=== PATIENT | female | born 1940 | race Caucasian/White ===

== ENCOUNTER → 2017-01-10 | Outpatient (CLI) | payer MEDICARE, OTHER ==
[2016-06-19 08:58] VITALS: BP 108/62
[~2017-01-10] MED LIST: ACET500T68 PO; ALLO100T PO; ALPR0.25 PO; AMIT50TA PO; ASCO-78 PO; ASCO500T2 PO; ASPI81TA44 PO; BIOT1CAP3 PO; CALC250T PO; COLC25PO MC; CRAN500C6 PO; DIGO125T PO; FURO80TA3 PO; FURO80TA72 PO; GUAI-42 PO; HYDR200T5 PO; Iron; LEVO100C PO; LEVO100T5 PO; MECL25TA3 PO; METH2.5T PO; METO25TA4 PO; METO5TAB4 PO; MULT1TAB15 PO; OMEG1CAP16 PO; OMEP40CA5 PO; PARO40TA45 PO; POTA20TA12 PO; POTA20TA4 PO; PROP150T2 PO; PROP1DRO OP; RIVA10TA PO; RIVA15TA PO; SPIR25TA PO; TRAM50TA PO; TRAZ50TA15 PO; WARF5TAB7 PO; WARF7.5T PO; WARF7.5T6 PO; lutein
--- NOTE | 2017-01-10 11:04 | RAD ---
FDG tumor localization scan, PET/CT, 01/10/2017: History: Lung nodule, melanoma Following IV injection of 14.0 mCi of 18 F-FDG, imaging was performed from the skull base to the proximal thighs. The noncontrast CT component was performed for attenuation correction and anatomic localization purposes rather than for primary diagnosis. The patient's blood glucose level at the time of injection was 100 MG/DL. Comparison is made to a study from 02/02/2016. The CT component again demonstrates a tiny 4 mm nodule in the lateral aspect of the right upper lobe. It is unchanged in size. There is no abnormal FDG uptake visible in this region. Its stability dating back to at least 01/28/2014 indicates a benign etiology. There is mildly increased FDG uptake throughout the esophagus, more so than on the previous study. There is a focus of avid uptake present along the anterior aspect of the left hilum corresponding in location to a cluster of surgical clips and calcifications. The maximum SUV at this level is 5.0 compared to a value of 3.5 on the previous study. This has been thought to represent a attenuation correction artifact related to these surgical clips and calcifications, however, of some concern is the fact that there is also increased activity in this region on the uncorrected images. The chest uptake is otherwise unremarkable. Physiologic activity is seen in the neck. No hypermetabolic neck lesion is seen. Normal GI tract and urinary tract activity is present in the abdomen and pelvis. The stomach demonstrates avid uptake similar to on previous studies. No hypermetabolic abdominal or pelvic mass is seen. IMPRESSION: 1. Stable tiny benign-appearing right upper lobe pulmonary nodule. 2. Increased activity along the anterior aspect of the left hilum may be artifactual, however, it has progressed slightly since previous study. Further surveillance is suggested to exclude recurrent neoplasm. 3. Increased esophageal and gastric FDG uptake suggesting nonspecific inflammation.
== END | disposition home or self-care (01) ==
LOC: PETSC 07:57
PROVIDERS: ATTEND Internal Medicine Pulmonary Disease
DX: R91.1 Solitary pulmonary nodule (principal)
CPT/HCPCS: 78815; A9552

== ENCOUNTER → 2017-05-23 | Outpatient (CLI) | payer MEDICARE, OTHER ==
[2017-05-20 10:15] VITALS: BP 92/57
[~2017-05-23] MED LIST changes: +CALC-98 PO; +GUAI-107 PO; -GUAI-42 PO; +HYDROXYCHLOROQUINE PO; +LORA10TA68 PO; +METHOTREXATE PO; -OMEG1CAP16 PO; +OMEG1CAP27 PO; -PARO40TA45 PO; +PARO40TA61 PO; +WARF6TAB49 PO; -WARF7.5T PO; +WARF7.5T48 PO
[2017-05-23 15:13] LABS: BASO % 1 % (0-3); EOS % 0 % (0-3); HEMOGLOBIN 13.6 g/dL (12.0-15.5); LYMPH # 0.9 x10^3/uL (1.0-4.8); LYMPH % 15 % (24-48); MEAN CORPUSCULAR HEMOGLOBIN 35 pg (25-35); MEAN CORPUSCULAR HGB CONC 33 g/dL (31-37); MEAN CORPUSCULAR VOLUME 105 fL (79-100); MONO % 12 % (0-9); NEUT % 73 % (31-73); PLATELET COUNT 202 x10^3/uL (140-400); RED BLOOD COUNT 3.89 x10^6/uL (3.50-5.40); WHITE BLOOD COUNT 6.3 x10^3/uL (4.0-11.0)
[2017-05-23 15:46] LABS: ALBUMIN 3.8 g/dL (3.4-5.0); CALCIUM 9.4 mg/dL (8.5-10.1); CREATININE 1.6 mg/dL (0.6-1.0); GFR 31.3; PHOSPHORUS 4.1 mg/dL (2.6-4.7); POTASSIUM 4.6 mmol/L (3.5-5.1)
== END | disposition home or self-care (01) ==
LOC: LAB 14:54
PROVIDERS: ATTEND Internal Medicine Nephrology
DX: I12.9 Hypertensive chronic kidney disease with stage 1 through stage 4 chronic kidney disease, or unspecified chronic kidney disease (principal); N18.3 Chronic kidney disease, stage 3 (moderate); E87.6 Hypokalemia; Q28.8 Other specified congenital malformations of circulatory system
CPT/HCPCS: 36415; 80069; 83970; 85027

== ENCOUNTER → 2017-06-07 | Outpatient (CLI) | payer MEDICARE, OTHER ==
[2017-05-20 10:15] VITALS: BP 92/57
--- NOTE | 2017-06-07 10:32 | KCIC ---
Bilateral digital screening mammograms: Reason for examination: Routine screening. Pacemaker is present on the left. Comparison is made to previous studies dated 05/17/2015, 06/24/2013 04/04/2012. Interpretation is made with the benefit of CAD. The skin and nipples show no abnormalities. No abnormal lymph nodes are seen. The breast parenchyma is predominantly fatty. (Breast density: Category A.) There continues to be a nodular density anteriorly in the right breast at the 11:00 position which appears to be stable. There are no new dominant masses, suspicious calcifications or architectural distortions. Impression: No evidence of malignancy. Recommend routine screening. BI-RADS Category 2: Benign. "Our facility is accredited by the [employer] Mammography [employer]." This patient's information has been entered into a reminder system for the patient to be notified with the results of her examination and a target date for the next mammogram. Electronically signed by: Milvia Stokes MD (06/07/2017 10:29 AM) [facility]
== END | disposition home or self-care (01) ==
LOC: KCIC MAMMO 09:32
PROVIDERS: ATTEND Family Medicine
DX: Z12.31 Encounter for screening mammogram for malignant neoplasm of breast (principal)
CPT/HCPCS: G0202; 77067

== ENCOUNTER → 2017-06-19 | Outpatient (CLI) | payer OTHER ==
[2017-05-20 10:15] VITALS: BP 92/57
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
== END | disposition home or self-care (01) ==
LOC: RAD 13:16
PROVIDERS: ATTEND Family Medicine
DX: M19.012 Primary osteoarthritis, left shoulder (principal); M19.011 Primary osteoarthritis, right shoulder; M25.512 Pain in left shoulder; M54.2 Cervicalgia
CPT/HCPCS: 72050; 73030

== ENCOUNTER 2017-06-23 19:29 | Inpatient (IN) | payer MEDICARE ==
[~2017-06-23] VITALS: Ht 157.5 cm; Wt 51.8 kg
[2017-06-23] MEDS ORDERED: guaiFENesin DM 600/30MG 1 TAB TAB.ER.12H PO PRN (20:45)
[2017-06-23 20:57] LABS: BASO % 0 % (0-3); EOS % 0 % (0-3); HEMATOCRIT 43.4 % (36.0-47.0); HEMOGLOBIN 14.7 g/dL (12.0-15.5); LYMPH # 1.2 x10^3/uL (1.0-4.8); LYMPH % 9 % (24-48); MEAN CORPUSCULAR HEMOGLOBIN 35 pg (25-35); MEAN CORPUSCULAR HGB CONC 34 g/dL (31-37); MEAN CORPUSCULAR VOLUME 103 fL (79-100); MONO % 4 % (0-9); NEUT % 87 % (31-73); PLATELET COUNT 248 x10^3/uL (140-400); RED BLOOD COUNT 4.21 x10^6/uL (3.50-5.40); RED CELL DISTRIBUTION WIDTH 15.5 % (11.5-14.5); WHITE BLOOD COUNT 13.7 x10^3/uL (4.0-11.0)
[2017-06-23] MEDS ORDERED: POTASSIUM CHLORIDE 20 MEQ TABLET.ER. PO SCH (21:00)
[2017-06-23] MEDS: PROPAFENONE 150 MG TABLET. PO SCH (21:00)
[2017-06-23] MEDS ORDERED: BIOTIN 1000 MG PO SCH (21:00)
[2017-06-23] MEDS ORDERED: METH2.5T PO (21:04)
[2017-06-23 21:13] LABS: ALBUMIN 3.6 g/dL (3.4-5.0); ALBUMIN/GLOBULIN RATIO 0.9 (1.0-1.7); CALCIUM 9.4 mg/dL (8.5-10.1); CREATININE 1.8 mg/dL (0.6-1.0); GFR 27.4; TOTAL BILIRUBIN 0.4 mg/dL (0.2-1.0); TOTAL PROTEIN 7.4 g/dL (6.4-8.2)
[2017-06-23 21:16] LABS: POTASSIUM 6.5 mmol/L (3.5-5.1)
[2017-06-23 21:16] LABS: BILIRUBIN,URINE NEGATIVE (NEG); GLUCOSE,URINE NEGATIVE (NEG); NITRITE,URINE NEGATIVE (NEG); PH,URINE 6.5; PROTEIN,URINE NEGATIVE (NEG-TRACE); UROBILINOGEN,URINE 0.2 mg/dL (0.2 mg/dL)
[2017-06-23 21:18] LABS: PLT ESTIMATE ADEQUATE (ADEQUATE); TOXIC GRANULATION MOD; TOXIC VACUOLATION MOD
[2017-06-23 21:22] LABS: BACTERIA,URINE FEW /HPF (0-FEW); RBC,URINE OCC /HPF (0-2); SQUAMOUS EPITHELIAL CELL,UR OCC /LPF; WBC,URINE RARE /HPF (0-4)
[2017-06-23] MEDS ORDERED: DEXTROSE 50% 25 GM / 50ML DISP.SYRIN. IV ONE (21:30)
[2017-06-23] MEDS ORDERED: CALCIUM GLUCONATE 1,000 MG/10 ML VIAL. IVP ONE (21:30)
[2017-06-23] MEDS ORDERED: INSULIN REGULAR 100 UNIT/ML 10ML VIAL. IV ONE (21:30)
[2017-06-23] MEDS ORDERED: SODIUM BICARB ADULT 8.4% 50 MEQ/50 ML DISP.SYRIN. IV ONE (21:45)
--- NOTE | 2017-06-23 21:55 | ED.ADGEN ---
Past Medical History Past Medical History: A-Fib, Anxiety, Cancer, CHF, Depression, GERD, Hypothyroid, Lung Disease, TIA Additional Past Medical Histor: HISTORY OF LEFT LUNG CANCER Past Surgical History: Pacemaker, Other Additional Past Surgical Histo: Lt lung lobectomy, RT HIP, RT LEG, LT SHOULDER Alcohol Use: None Drug Use: None Adult General Chief Complaint Chief Complaint: WEAKNESS/GENERALIZED HPI HPI Patient is a 76 year old woman, history of CHF, hypertension, lung cancer status post lobectomy, renal insufficiency, who presents to the emergency department with a complaint of 5 days of worsening generalized weakness and malaise. Patient denies any chest pain, states she is experiencing increased shortness of breath, denies any vomiting, is complaining of nausea. Also complaining of abdominal pain in the center abdomen "e- my belly button". Last bowel was yesterday and was normal, no blood noted in stool. Denies any urinary complaints, denies any focal weakness, numbness or tingling, any injuries, any lightheadedness or syncope. She states she has been compliant with all medications. Denies any recent travel or surgery, history of DVT or PE, any increased swelling of the extremities. Review of Systems Review of Systems Constitutional: Denies fever or chills. [] Eyes: Denies change in visual acuity. [] HENT: Denies nasal congestion or sore throat. [] Respiratory: Denies cough, complaining of increasing shortness of breath. Cardiovascular: Denies chest pain or edema. [] GI: Complaining of mid abdominal pain, cramping, nausea, no vomiting, bloody stools or diarrhea. [] : Denies dysuria. [] Musculoskeletal: Denies back pain or joint pain. [] Integument: Denies rash. [] Neurologic: Denies headache, focal weakness or sensory changes. [] Endocrine: Denies polyuria or polydipsia. [] Lymphatic: Denies swollen glands. [] Psychiatric: Denies depression or anxiety. [] Current Medications Current Medications Current Medications Medications (Trade) Dose Ordered Sig/Jose Start Time Stop Time Status Last Admin Dose Admin Acetaminophen (Tylenol) 500 mg PRN Q6HRS PRN 06/23/17 20:45 Allopurinol (Zyloprim) 100 mg DAILY 06/24/17 09:00 Alprazolam (Xanax) 0.25 mg PRN BID PRN 06/23/17 20:45 Artificial Tears (Artificial Tears) 1 drop DAILY 06/24/17 09:00 Calcium Gluconate (Calcium Gluconate) 1,000 mg 1X ONCE 06/23/17 21:30 06/23/17 21:31 DC 06/23/17 21:42 1,000 MG Calcium/Vitamin D (Oscal D 500mg/ 200uts) 1 tab BIDWMEALS 06/24/17 08:00 Cetirizine HCl (ZyrTEC) 10 mg PRN DAILY PRN 06/24/17 09:00 Dextrose (Dextrose 50%-Water Syringe) 25 gm 1X ONCE 06/23/17 21:30 06/23/17 21:31 DC 06/23/17 22:00 25 GM Ferrous Sulfate (Feosol) 325 mg [id number] 06/24/17 08:00 Fish Oil (Fish Oil) 1,000 mg DAILY 06/24/17 09:00 Furosemide (Lasix) 80 mg BID94 06/24/17 09:00 Guaifenesin (MUCINEX ER with DM) 1 tab PRN Q12HRS PRN 06/23/17 20:45 Hydroxychloroquine Sulfate (Plaquenil) 200 mg DAILY08 06/24/17 09:00 Insulin Human Regular (NovoLIN R VIAL) 10 unit 1X ONCE 06/23/17 21:30 06/23/17 21:31 DC 06/23/17 21:58 10 UNIT Levothyroxine Sodium (Synthroid) 100 mcg DAILY07 06/24/17 07:00 Methotrexate (Rheumatrex) 17.5 mg We@0900 06/26/17 09:00 Multivitamins/ Minerals (I-Cristiano) 1 tab BID 06/24/17 09:00 Non-Formulary Medication 1,000 mg BID 06/23/17 21:00 06/23/17 21:00 DC Pantoprazole Sodium (Protonix) 40 mg DAILYAC 06/24/17 07:30 Paroxetine HCl (Paxil) 20 mg DAILY 06/24/17 09:00 Potassium Chloride (Klor-Con) 40 meq QID 06/23/17 21:00 06/23/17 22:13 DC Propafenone HCl (Rythmol) 150 mg BID 06/23/17 21:00 Sodium Bicarbonate 150 meq/Dextrose 1,150 ml @ 100 mls/hr [id number] 06/23/17 22:30 Sodium Polystyrene Sulfonate (Kayexalate) 30 gm 1X ONCE 06/23/17 22:30 06/23/17 22:31 Sodium Bicarbonate 50 meq 1X ONCE 06/23/17 21:45 06/23/17 21:46 DC 06/23/17 21:49 50 MEQ Spironolactone (Aldactone) 25 mg BID94 06/24/17 09:00 Tramadol HCl (Ultram) 50 mg PRN Q6HRS PRN 06/23/17 20:45 Trazodone HCl (Desyrel) 25 mg HS 06/23/17 21:00 Warfarin Sodium (Coumadin Per Pharmacy) 1 each PRN DAILY PRN 06/23/17 21:00 Warfarin Sodium (Coumadin) 9 mg DAILY16 06/24/17 16:00 Allergies Allergies Allergies Coded Allergies Type Severity Reaction Last Updated Verified adhesive Allergy Intermediate "Breaks out" 04/02/16 Yes albuterol Allergy Intermediate "CAN'T BREATHE" 04/02/16 Yes codeine Allergy Intermediate "Breaks out." 04/02/16 Yes oxycodone Allergy Intermediate Rash 04/02/16 Yes duloxetine Adverse Reaction Intermediate edema 04/02/16 Yes pregabalin Adverse Reaction Intermediate edema 04/02/16 Yes Physical Exam Physical Exam Constitutional: Well developed, well nourished, no acute distress, nontoxic. [] HENT: Normocephalic, atraumatic, bilateral external ears normal, oropharynx moist, no oral exudates, nose normal. [] Eyes: PERRLA, EOMI, conjunctiva normal, no discharge. [] Neck: Normal range of motion, no tenderness, supple, no stridor. [] Cardiovascular:Heart rate regular rhythm, no murmur, S1, S2, no rubs or gallops. Patient with before meals pacemaker in place, site is nontender, skin is intact. [] Lungs & Thorax: Bilateral breath sounds clear to auscultation [] Abdomen: Bowel sounds normal, soft, tenderness palpation in the mid abdominal region, no rebound or rigidity, mild guarding, bowel sounds are present throughout, no masses, no pulsatile masses. [] Skin: Warm, dry, no erythema, no rash. [] Back: No tenderness, no CVA tenderness. [] Extremities: No tenderness, no cyanosis, no clubbing, ROM intact, no edema. Negative Homans sign. [] Neurologic: Alert and oriented X 3, normal motor function, normal sensory function, no focal deficits noted. [] Psychologic: Affect normal, judgement normal, mood normal. [] Current Patient Data Vital Signs Vital Signs Date Time Temp Pulse Resp B/P (MAP) Pulse Ox O2 Delivery O2 Flow Rate FiO2 06/23/17 19:30 97.6 72 19 107/70 (82) 98 Room Air 97.6 Lab Values Laboratory Tests Test 06/23/17 20:50 06/23/17 21:08 White Blood Count 13.7 x10^3/uL (4.0-11.0) H Red Blood Count 4.21 x10^6/uL (3.50-5.40) Hemoglobin 14.7 g/dL (12.0-15.5) Hematocrit 43.4 % (36.0-47.0) Mean Corpuscular Volume 103 fL (79-100) H Mean Corpuscular Hemoglobin 35 pg (25-35) Mean Corpuscular Hemoglobin Concent 34 g/dL (31-37) Red Cell Distribution Width 15.5 % (11.5-14.5) H Platelet Count 248 x10^3/uL (140-400) Neutrophils (%) (Auto) 87 % (31-73) H Lymphocytes (%) (Auto) 9 % (24-48) L Monocytes (%) (Auto) 4 % (0-9) Eosinophils (%) (Auto) 0 % (0-3) Basophils (%) (Auto) 0 % (0-3) Neutrophils # (Auto) 11.9 x10^3uL (1.8-7.7) H Lymphocytes # (Auto) 1.2 x10^3/uL (1.0-4.8) Monocytes # (Auto) 0.5 x10^3/uL (0.0-1.1) Eosinophils # (Auto) 0.0 x10^3/uL (0.0-0.7) Basophils # (Auto) 0.0 x10^3/uL (0.0-0.2) Segmented Neutrophils % 87 % (35-66) H Band Neutrophils % 3 % (0-9) Lymphocytes % 5 % (24-48) L Monocytes % 5 % (0-10) Toxic Granulation Mod Toxic Vacuolation Mod Platelet Estimate Adequate (ADEQUATE) Prothrombin Time 45.9 SEC (11.7-14.0) H Prothrombin Time INR 5.4 (0.8-1.1) *H PTT 43 SEC (24-38) H Sodium Level 126 mmol/L (136-145) L Potassium Level 6.5 mmol/L (3.5-5.1) *H Chloride Level 92 mmol/L (98-107) L Carbon Dioxide Level 24 mmol/L (21-32) Anion Gap 10 (6-14) Blood Urea Nitrogen 99 mg/dL (7-20) H Creatinine 1.8 mg/dL (0.6-1.0) H Estimated GFR (Cockcroft-Gault) 27.4 BUN/Creatinine Ratio 55 (6-20) H Glucose Level 83 mg/dL (70-99) Lactic Acid Level 1.0 mmol/L (0.4-2.0) Calcium Level 9.4 mg/dL (8.5-10.1) Total Bilirubin 0.4 mg/dL (0.2-1.0) Aspartate Amino Transferase (AST) 37 U/L (15-37) Alanine Aminotransferase (ALT) 29 U/L (14-59) Alkaline Phosphatase 69 U/L (46-116) Troponin I Quantitative 0.173 ng/mL (0.000-0.055) SM-Ual-T-Type Natriuretic Peptide 9161 pg/mL (0-449) H Total Protein 7.4 g/dL (6.4-8.2) Albumin 3.6 g/dL (3.4-5.0) Albumin/Globulin Ratio 0.9 (1.0-1.7) L Lipase 342 U/L (73-393) Urine Collection Type Unknown Urine Color Yellow Urine Clarity Clear Urine pH 6.5 Urine Specific [place] 1.010 Urine Protein Negative mg/dL (NEG-TRACE) Urine Glucose (UA) Negative mg/dL (NEG) Urine Ketones (Stick) Negative mg/dL (NEG) Urine Blood Trace (NEG) Urine Nitrite Negative (NEG) Urine Bilirubin Negative (NEG) Urine Urobilinogen Dipstick 0.2 mg/dL (0.2 mg/dL) Urine Leukocyte Esterase Trace (NEG) Urine RBC Occ /HPF (0-2) Urine WBC Rare /HPF (0-4) Urine Squamous Epithelial Cells Occ /LPF Urine Bacteria Few /HPF (0-FEW) Urine Hyaline Casts Occasional /HPF Urine Mucus Slight /LPF Laboratory Tests 06/23/17 20:50 Laboratory Tests 06/23/17 20:50 EKG EKG EC: Paced rhythm, QTC is 597, QRS is 324, left axis deviation noted, patient noted to have peaked T waves, when compared to previous ECG from 2016, PT waves are new, pacing is consistent, limitations noted secondary to pacing, does not meet STEMI criteria. Radiology/Procedures Radiology/Procedures Acute abdominal series: 3 view: Patient with AICD pacemaker in place, hyperinflation of lungs noted, no pneumothorax, no effusion, infiltrates, fracture noted. No free air. Patient with dilated loops of bowel noted throughout, no air-fluid levels. Abnormal abdominal film, as interpreted by me. Impressions: [facility] [address] [place] [address] IMAGING REPORT Signed PATIENT: ZACKARY TAVARES ACCOUNT: [id number] : 1940 LOCATION: ER AGE: 76 SEX: F EXAM STATUS: REG ER ORD. PHYSICIAN: ROCIO HAILE DO REASON: abd pain/nausea PROCEDURE: CT ABDOMEN PELVIS WO CONTRAST Abdominal and Pelvis CT, Without Contrast: History: Nausea and abdominal pain. Comparison: None. Procedure: Axial images are obtained of the abdomen and pelvis, without IV or oral contrast. CT Abdomen without Contrast: Findings: Evaluation of solid organs is limited without contrast. Evaluation of stomach and bowel is limited without oral contrast. Liver: Normal. Spleen: Normal. Pancreas: Normal. Adrenal Glands: Normal. Kidneys: Normal. There is no free air or free fluid. There is no lymphadenopathy. Multiple surgical clips are seen in the left upper quadrant in the stomach is not well seen. Distal stomach appears to be tacked up against the anterior abdominal wall. There has been prior cholecystectomy. Impression: Please see CT Pelvis without Contrast. End Impression. CT Pelvis without Contrast: Findings: The urinary bladder appears normal. There is no free fluid. There is no lymphadenopathy. There is no pericolonic inflammation identified. The colon is somewhat redundant. There is a small tubular structure in the left hemipelvis which could be a normal appendix. There is air and stool scattered throughout the colon. Impression: Mild colonic ileus. Postsurgical changes. End impression PQRS Compliance Statement: One or more of the following individualized dose reduction techniques were utilized for this examination: 1. Automated exposure control 2. Adjustment of the mA and/or kV according to patient size 3. Use of iterative reconstruction technique Electronically signed by: Alberto Morales III, MD (06/23/2017 9:51 PM) [facility] DICTATED and SIGNED BY: ALBERTO MORALES III, MD DATE: 06/23/172145 CC: ROCIO HAILE DO; CHRISTIAN POSADA MD ~ Course & Med Decision Making Course & Med Decision Making Pertinent Labs and Imaging studies reviewed. (See chart for details) Patient complaining of generalized malaise and weakness over the past several days, denies any focal deficits, has 5 out of 5 strength in all extremities, ECG is concerning for PT waves on a paced rhythm. Delay in obtaining laboratory studies due to difficult access, patient with a potassium of 6.5, creatinine of 1.8, and a blood urea nitrogen of 99. Troponin is positive at 0.173. Patient received hyperkalemia protocol in the emergency department, remained stable on the monitor, paced rhythm in the 60s and 70s, blood pressures 1 teens over 70s , oxygen saturation is 99% on room air, respiratory rate is 20 and unlabored. Patient is resting more comfortably after receiving pain medication in the ED, no emesis in the ED. Acute abdominal series obtained, reveals dilated loops of bowel, with before meals pacemaker in place, no significant pulmonary abnormality identified. CT of abdomen and pelvis ordered for the lucid 8 symptoms, without contrast due to patient's laboratory findings. Patient was evaluated in the emergency department by Dr. Elias of internal medicine, he was updated via telephone regarding these findings. Patient's student services vice president is Dr. Cohen, he is on-call tonight, he requests the patient be initiated on a bicarbonate infusion, with 3 A of bicarbonate in a liter of D5W, at 100 MLS an hour. Patient also received 30 g of Kayexalate times one in the ED, with a 4 hour potassium to be drawn after the Kayexalate is given. If potassium is still greater than 6 at that time, he requested an additional 15 g of Kayexalate be given at that time. He'll be updated at that point if this intervention is required, I did speak with Dr. Elias again, and updateed him on these recommendations and on the CT findings of ileus, which would be consistent with the patient's symptoms and a electrolyte disturbances, noted on CT. Patient with leukocytosis, but no evidence of infection identified at this time, more consistent with an acute phase reaction to the patient's electrolyte disturbances and renal dysfunction, along with the mildly elevated troponin, which is consistent with patient's renal failure, and we do not believe to be indicative of a acute cardiac event. Patient noted to be supratherapeutic with an INR of 5.6, is not experiencing any bleeding at this time, no intervention required will continue to monitor closely. Cardiology has been consulted by Dr. Elias. Patient admitted to the ICU under his service as a full admission under his service, with close monitoring, consultations and interventions as stated. Patient remains stable on the monitor, resting more comfortably, paced rhythm, awaiting transfer to the ICU. Bridge orders entered per discussion. Dragon Disclaimer Dragon Disclaimer This electronic medical record was generated, in whole or in part, using a voice recognition dictation system. Departure Impression: Primary Impression: Hyperkalemia Additional Impression: Renal failure Disposition: ADMITTED INPATIENT Admitting Physician: Olinda Elias Condition: IMPROVED Critical Care Time Critical care time was 30 minutes exclusive of procedures. Problem Qualifiers ROCIO HAILE DO Jun 23, 2017 21:55
[2017-06-23 22:12] LABS: PROTHROMBIN TIME PATIENT 45.9 SEC (11.7-14.0)
[2017-06-23 22:17] LABS: INR 5.4 (0.8-1.1)
[2017-06-23] MEDS ORDERED: SODIUM POLYSTYRENE SULFONATE 15 GM/60 ML ORAL.SUSP. PO ONE (22:30)
--- NOTE | 2017-06-23 22:37 | HP ---
ADMIT DATE: 06/23/2017 CHIEF COMPLAINT: Abdominal pain, weakness, shortness of breath and nausea for 2 days. HISTORY OF PRESENT ILLNESS: The patient is a pleasant 76-year-old female well known to our service. She has quite a few medical problems. Basically, today she comes in with weakness, some nausea. She has been short of breath, basically not feeling very well for the past 3 days. She is on 24 medications. We did an EKG in the ER. It was showing a paced rhythm. Laboratory is still pending. I have discussed the case with the ER physician. We examined her together. Basically, we are going to admit the patient and consult Cardiology. PAST MEDICAL HISTORY: Polypharmacy, bilateral toe amputations, arthritis, degenerative joint disease, gout, anxiety, depression, osteoporosis, hypertension, hypothyroidism, allergic rhinitis, GERD, constipation, edema, chronic anticoagulation and anemia. ALLERGIES: ADHESIVE, ALBUTEROL, CODEINE, DULOXETINE, OXYCODONE AND PREGABALIN. FAMILY HISTORY: Coronary artery disease. SOCIAL HISTORY: She is retired. She does not drink, smoke or take drugs. MEDICATIONS: Reviewed, please refer to the MRAD. REVIEW OF SYSTEMS: GENERAL: She complains of weakness. SKIN: No bruising, hair changes or rashes. EYES: No blurred, double or loss of vision. NOSE AND THROAT: No history of nosebleeds, hoarseness or sore throat. HEART: No history of palpitations, chest pain or shortness of breath on exertion. LUNGS: She complains of shortness of breath. GASTROINTESTINAL: She complains of abdominal pain. GENITOURINARY: No history of frequency, urgency, hesitancy or nocturia. NEUROLOGIC: Denies history of numbness, tingling, tremor or weakness. PSYCHIATRIC: No history of panic, anxiety or depression. ENDOCRINE: No history of heat or cold intolerance, polyuria or polydipsia. EXTREMITIES: Denies muscle weakness, joint pain, pain on walking or stiffness. PHYSICAL EXAMINATION: VITAL SIGNS: Temperature afebrile, pulse 72, respirations 18, blood pressure 107/70, O2 sat 98%. GENERAL: She is awake, alert, very weak, frail. HEART: Distant S1, S2. LUNGS: Clear. ABDOMEN: Soft. Decreased bowel sounds, slightly tender. EXTREMITIES: No edema. She does have poor circulation of both lower extremities. Both second toes are missing. ENDOCRINE: No thyromegaly. LYMPHATICS: No cervical nodes. HEMATOPOIETIC: No bruising. LABORATORY DATA: Pending. ASSESSMENT AND PLAN: Weakness, shortness breath, nausea, abdominal pain and generalized debility. I suspect she might even have early adult failure to thrive. The patient has been admitted. We will try to resume her home meds, IV fluids. Consult Cardiology, PT/OT, social insurance adviser for possible long-term care placement. BRITTA MARTINEZ DO DR: BLU/yo JOB#: [id number] / [id number]
[2017-06-23] MEDS: SODIUM BICARBONATE VIAL 150 MEQ in IV DEXTROSE 5% 1,000 ML IV SCH (22:39)
[2017-06-23] MEDS ORDERED: SODIUM POLYSTYRENE SULFONATE 15 GM/60 ML ORAL.SUSP. PO PRN (22:45)
[2017-06-23] MEDS ORDERED: fentaNYL PF VIAL 100 MCG/2 ML VIAL IV PRN (23:30)
[2017-06-23] MEDS ORDERED: ACETAMINOPHEN 325 MG TABLET. PO PRN (23:30)
[2017-06-23 23:40] VITALS: BP 115/63
[2017-06-24] VITALS (20 sets, daily range): BP systolic 83–112; BP diastolic 51–70
[2017-06-24] MEDS: traZODone 50 MG TABLET. PO SCH ×2 (00:15→21:08)
[2017-06-24] MEDS: traMADol 50 MG TABLET PO PRN ×2 (00:15→06:12)
[2017-06-24 03:52] LABS: BASO % 0 % (0-3); EOS % 0 % (0-3); HEMATOCRIT 40.4 % (36.0-47.0); HEMOGLOBIN 13.8 g/dL (12.0-15.5); LYMPH # 1.2 x10^3/uL (1.0-4.8); LYMPH % 13 % (24-48); MEAN CORPUSCULAR HEMOGLOBIN 35 pg (25-35); MEAN CORPUSCULAR HGB CONC 34 g/dL (31-37); MEAN CORPUSCULAR VOLUME 103 fL (79-100); MONO % 4 % (0-9); NEUT % 82 % (31-73); PLATELET COUNT 199 x10^3/uL (140-400); RED BLOOD COUNT 3.94 x10^6/uL (3.50-5.40); RED CELL DISTRIBUTION WIDTH 16.4 % (11.5-14.5); WHITE BLOOD COUNT 9.3 x10^3/uL (4.0-11.0)
[2017-06-24 04:20] LABS: PROTHROMBIN TIME PATIENT 51.4 SEC (11.7-14.0)
[2017-06-24 04:21] LABS: ALBUMIN 3.2 g/dL (3.4-5.0); ALBUMIN/GLOBULIN RATIO 1.2 (1.0-1.7); CALCIUM 8.7 mg/dL (8.5-10.1); CREATININE 1.6 mg/dL (0.6-1.0); GFR 31.3; PHOSPHORUS 4.4 mg/dL (2.6-4.7); TOTAL BILIRUBIN 0.5 mg/dL (0.2-1.0); TOTAL PROTEIN 5.9 g/dL (6.4-8.2)
[2017-06-24 04:33] LABS: POTASSIUM 2.5 mmol/L (3.5-5.1)
[2017-06-24 04:46] LABS: INR 6.2 (0.8-1.1)
--- NOTE | 2017-06-24 05:12 | ACF ---
Admission Forms Criteria HYPONATREMIA; HYPERNATREMIA; HYPOKALEMIA; HYPERKALEMIA; HYPOCALCEMIA; HYPERCALCEMIA Clinical Indications for Inpatient Care (Place 'X' for any and all applicable criteria): Ongoing inpatient care may be indicated for ANY ONE of the following [G](1)(2)(3 )(5): [ ]I. Hyponatremia with ANY ONE of the following: [ ]a) Sodium less than 130 mEq/L (mmol/L) (new) (6)(22) [ ]b) Sodium less than 135 mEq/L (mmol/L) with ANY ONE of the following: [ ]i) Severe medical etiology requiring inpatient management (eg, heart failure, hypovolemia) [ ]ii) Altered mental status [ ]iii) Seizures [ ]II. Hypernatremia with ANY ONE of the following: [ ]a) Sodium greater than 155 mEq/L (mmol/L) [ ]b) Sodium greater than 150 mEq/L (mmol/L) with ANY ONE of the following: [ ] i) Altered mental status [ ]ii) Seizures [ ]iii) Severe medical etiology (eg, hypovolemia, diabetes insipidus) [ ]iv) Severe weakness [ ]v) Severe medical etiology (eg, hemolysis, infection, drug overdose) [ ]III. Hypokalemia with ANY ONE of the following: [ ]a) Potassium less than 2.5 mEq/L (mmol/L) despite outpatient and emergency treatment [ ]b) Potassium less than 3.0 mEq/L (mmol/L) with ANY ONE of the following: [ ]i) Weakness [ ]ii) Cardiac abnormality (eg, arrhythmia, conduction disturbance) [ ]iii) Cardiac ischemia [ ]iv) Ileus [ ]v) Ongoing medical cause requiring inpatient management. ( e.g., acute renal wasting, SIADH) [ ]vi) Other severe symptoms [ X] IV. Hyperkalemia with ANY ONE of the following: [ ]a) Potassium greater than 6.5 mEq/L (mmol/L) [X ]b) Potassium greater than 5 mEq/L (mmol/L) with ANY ONE of the following: [ ]i) Severe ECG findings [H] [X ]ii) Acute worsening of renal failure (creatinine greater than 2.5 mg/dL (221 micromoles/L) or significant elevation for age and size) [ ] V. Hypocalcemia with ANY ONE of the following: [ ]a) Calcium less than 7 mg/dL (1.75 mmol/L) despite outpatient and emergency treatment(19) [ ]b) Calcium less than 8 mg/dL (2 mmol/L) with significant symptoms or findings; examples include: [ ]i) Cardiac abnormality (eg, arrhythmia or conduction disturbance) [ ]ii) Altered mental status [ ]iii) Seizures [ ]iv) Breathing difficulty [ ]v) Muscle spasms [ ]. Hypercalcemia with ANY ONE of the following: [ ]a) Calcium greater than 14 mg/dL (3.5 mmol/L) [ ]b) Calcium greater than 12 mg/dL (3 mmol/L) with ANY ONE of the following: [ ]i) Significant dehydration or hypovolemia as indicated by ANY ONE of the following(2): [ ]1. Clinically significant dehydration as indicated by ANY ONE of the following: [ ]A. Acute loss of weight from baseline (5% of body weight in adults, 9% in pediatric patients) [ ]B. Hemodynamic instability [ ]C. Acute renal failure [ ]D. Serum sodium greater than 150 mEq/L (mmol/L) [ ]2) Dehydration that is persistent indicated by ALL of the following: [ ]A. Oral rehydration therapy not tolerated or insufficient to adequately correct dehydration [ ]B. Appropriate intravenous treatment (eg, fluids ) does not readily correct dehydration ie, after 12 to 24 hours of treatment) [ ]ii) Significant symptoms or findings; examples include: [ ]1) Altered mental status [ ]2) Cardiac abnormality (eg, arrhythmia, conduction disturbance) [ ]3) Cardiac abnormality (eg, arrhythmia, conduction disturbance) The original [facility] content created by [facility] has been revised. The portions of the content which have been revised are identified through the use of italic text or in bold, and [facility] has neither reviewed nor approved the modified material. All other unmodified content is copyright [facility] [employer] Please see references footnoted in the original [facility] [employer] edition 2016 Admission Criteria Met?: Yes ELVIA BERNAL Jun 24, 2017 05:12
[2017-06-24] MEDS ORDERED: PHYTONADIONE (VIT K1) 5 MG TABLET PO ONE (06:00)
[2017-06-24] MEDS ORDERED: POTASSIUM CHLORIDE 20 MEQ TABLET.ER. PO ONE ×3 (06:00→14:00)
--- NOTE | 2017-06-24 06:14 | EKG ---
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
[2017-06-24] MEDS ORDERED: LEVOTHYROXINE 100 MCG TABLET PO SCH (07:00)
--- NOTE | 2017-06-24 07:52 | RAD ---
Acute abdomen series with chest, 3 views, 06/23/2017: History: Abdominal pain, shortness of breath There is a moderate amount of stool in the colon. There is increased gas throughout the GI tract. No free air is seen in the abdomen. There is no evidence of organomegaly. Numerous surgical clips and sutures are present in the upper abdomen. An internal fixation device is present at the right hip. Moderate degenerative change is present in the spine. A left-sided transvenous pacemaker remains in place with two leads extending into the right heart. There are surgical clips at the left hilum with mild volume loss on the left which is presumably postsurgical. The heart size is normal. The pulmonary vascularity is within normal limits. No pulmonary infiltrates are seen. There is no evidence of pleural fluid. IMPRESSION: Increased gas throughout the GI tract and abundant stool in the colon suggesting constipation/atonic colon.
--- NOTE | 2017-06-24 08:16 | PDOC ---
PROGRESS NOTES Chief Complaint Chief Complaint Weakness, shortness breath, nausea, abdominal pain and generalized debility. hyperkalemia, now hypokalemia CHF, chronic systolic failure hyponatremia uremia, acute vasomotor nephropathy History of Present Illness History of Present Illness cont bicarb gtt, fluids given, CV to follow, CHF management replace PO K+, recheck PT and OT OOB advance diet plan out of ICU to floor if K+ better this AM Vitals Vitals Vital Signs Date Time Temp Pulse Resp B/P (MAP) Pulse Ox O2 Delivery O2 Flow Rate FiO2 06/24/17 06:12 20 Room Air 06/24/17 06:00 70 90/62 (71) 98 06/24/17 05:00 98.0 98.0 Physical Exam General: Alert, Oriented X3, Cooperative Heart: Regular rate, Other (3/6 STANLEY, blowing) Lungs: Clear Abdomen: Normal bowel sounds, Soft Extremities: No clubbing, No edema Skin: No rashes, No significant lesion Labs LABS Laboratory Tests Test 06/23/17 20:50 06/23/17 21:08 06/24/17 03:05 White Blood Count 13.7 x10^3/uL (4.0-11.0) 9.3 x10^3/uL (4.0-11.0) Red Blood Count 4.21 x10^6/uL (3.50-5.40) 3.94 x10^6/uL (3.50-5.40) Hemoglobin 14.7 g/dL (12.0-15.5) 13.8 g/dL (12.0-15.5) Hematocrit 43.4 % (36.0-47.0) 40.4 % (36.0-47.0) Mean Corpuscular Volume 103 fL (79-100) 103 fL (79-100) Mean Corpuscular Hemoglobin 35 pg (25-35) 35 pg (25-35) Mean Corpuscular Hemoglobin Concent 34 g/dL (31-37) 34 g/dL (31-37) Red Cell Distribution Width 15.5 % (11.5-14.5) 16.4 % (11.5-14.5) Platelet Count 248 x10^3/uL (140-400) 199 x10^3/uL (140-400) Neutrophils (%) (Auto) 87 % (31-73) 82 % (31-73) Lymphocytes (%) (Auto) 9 % (24-48) 13 % (24-48) Monocytes (%) (Auto) 4 % (0-9) 4 % (0-9) Eosinophils (%) (Auto) 0 % (0-3) 0 % (0-3) Basophils (%) (Auto) 0 % (0-3) 0 % (0-3) Neutrophils # (Auto) 11.9 x10^3uL (1.8-7.7) 7.7 x10^3uL (1.8-7.7) Lymphocytes # (Auto) 1.2 x10^3/uL (1.0-4.8) 1.2 x10^3/uL (1.0-4.8) Monocytes # (Auto) 0.5 x10^3/uL (0.0-1.1) 0.4 x10^3/uL (0.0-1.1) Eosinophils # (Auto) 0.0 x10^3/uL (0.0-0.7) 0.0 x10^3/uL (0.0-0.7) Basophils # (Auto) 0.0 x10^3/uL (0.0-0.2) 0.0 x10^3/uL (0.0-0.2) Segmented Neutrophils % 87 % (35-66) Band Neutrophils % 3 % (0-9) Lymphocytes % 5 % (24-48) Monocytes % 5 % (0-10) Toxic Granulation Mod Toxic Vacuolation Mod Platelet Estimate Adequate (ADEQUATE) Prothrombin Time 45.9 SEC (11.7-14.0) 51.4 SEC (11.7-14.0) Prothromb Time International Ratio 5.4 (0.8-1.1) 6.2 (0.8-1.1) Activated Partial Thromboplast Time 43 SEC (24-38) Sodium Level 126 mmol/L (136-145) 134 mmol/L (136-145) Potassium Level 6.5 mmol/L (3.5-5.1) 2.5 mmol/L (3.5-5.1) Chloride Level 92 mmol/L (98-107) 91 mmol/L (98-107) Carbon Dioxide Level 24 mmol/L (21-32) 37 mmol/L (21-32) Anion Gap 10 (6-14) 6 (6-14) Blood Urea Nitrogen 99 mg/dL (7-20) 84 mg/dL (7-20) Creatinine 1.8 mg/dL (0.6-1.0) 1.6 mg/dL (0.6-1.0) Estimated GFR (Cockcroft-Gault) 27.4 31.3 BUN/Creatinine Ratio 55 (6-20) 53 (6-20) Glucose Level 83 mg/dL (70-99) 147 mg/dL (70-99) Lactic Acid Level 1.0 mmol/L (0.4-2.0) Calcium Level 9.4 mg/dL (8.5-10.1) 8.7 mg/dL (8.5-10.1) Phosphorus Level 4.0 mg/dL (2.6-4.7) 4.4 mg/dL (2.6-4.7) Total Bilirubin 0.4 mg/dL (0.2-1.0) 0.5 mg/dL (0.2-1.0) Aspartate Amino Transf (AST/SGOT) 37 U/L (15-37) 31 U/L (15-37) Alanine Aminotransferase (ALT/SGPT) 29 U/L (14-59) 28 U/L (14-59) Alkaline Phosphatase 69 U/L (46-116) 61 U/L (46-116) Troponin I Quantitative 0.173 ng/mL (0.000-0.055) 0.154 ng/mL (0.000-0.055) XV-Edy-O-Type Natriuretic Peptide 9161 pg/mL (0-449) Total Protein 7.4 g/dL (6.4-8.2) 5.9 g/dL (6.4-8.2) Albumin 3.6 g/dL (3.4-5.0) 3.2 g/dL (3.4-5.0) Albumin/Globulin Ratio 0.9 (1.0-1.7) 1.2 (1.0-1.7) Lipase 342 U/L (73-393) Urine Collection Type Unknown Urine Color Yellow Urine Clarity Clear Urine pH 6.5 Urine Specific Kodak 1.010 Urine Protein Negative mg/dL (NEG-TRACE) Urine Glucose (UA) Negative mg/dL (NEG) Urine Ketones (Stick) Negative mg/dL (NEG) Urine Blood Trace (NEG) Urine Nitrite Negative (NEG) Urine Bilirubin Negative (NEG) Urine Urobilinogen Dipstick 0.2 mg/dL (0.2 mg/dL) Urine Leukocyte Esterase Trace (NEG) Urine RBC Occ /HPF (0-2) Urine WBC Rare /HPF (0-4) Urine Squamous Epithelial Cells Occ /LPF Urine Bacteria Few /HPF (0-FEW) Urine Hyaline Casts Occasional /HPF Urine Mucus Slight /LPF Review of Systems Review of Systems weakness and lethargy would like to eat more Assessment and Plan Assessmemt and Plan Problems Medical Problems: (1) Hyperkalemia Status: Acute (2) Renal failure Status: Acute Problems: Comment Review of Relevant I have reviewed the following items leila (where applicable) has been applied. Labs Laboratory Tests Test 06/23/17 20:50 06/23/17 21:08 06/24/17 03:05 White Blood Count 13.7 x10^3/uL (4.0-11.0) 9.3 x10^3/uL (4.0-11.0) Red Blood Count 4.21 x10^6/uL (3.50-5.40) 3.94 x10^6/uL (3.50-5.40) Hemoglobin 14.7 g/dL (12.0-15.5) 13.8 g/dL (12.0-15.5) Hematocrit 43.4 % (36.0-47.0) 40.4 % (36.0-47.0) Mean Corpuscular Volume 103 fL (79-100) 103 fL (79-100) Mean Corpuscular Hemoglobin 35 pg (25-35) 35 pg (25-35) Mean Corpuscular Hemoglobin Concent 34 g/dL (31-37) 34 g/dL (31-37) Red Cell Distribution Width 15.5 % (11.5-14.5) 16.4 % (11.5-14.5) Platelet Count 248 x10^3/uL (140-400) 199 x10^3/uL (140-400) Neutrophils (%) (Auto) 87 % (31-73) 82 % (31-73) Lymphocytes (%) (Auto) 9 % (24-48) 13 % (24-48) Monocytes (%) (Auto) 4 % (0-9) 4 % (0-9) Eosinophils (%) (Auto) 0 % (0-3) 0 % (0-3) Basophils (%) (Auto) 0 % (0-3) 0 % (0-3) Neutrophils # (Auto) 11.9 x10^3uL (1.8-7.7) 7.7 x10^3uL (1.8-7.7) Lymphocytes # (Auto) 1.2 x10^3/uL (1.0-4.8) 1.2 x10^3/uL (1.0-4.8) Monocytes # (Auto) 0.5 x10^3/uL (0.0-1.1) 0.4 x10^3/uL (0.0-1.1) Eosinophils # (Auto) 0.0 x10^3/uL (0.0-0.7) 0.0 x10^3/uL (0.0-0.7) Basophils # (Auto) 0.0 x10^3/uL (0.0-0.2) 0.0 x10^3/uL (0.0-0.2) Segmented Neutrophils % 87 % (35-66) Band Neutrophils % 3 % (0-9) Lymphocytes % 5 % (24-48) Monocytes % 5 % (0-10) Toxic Granulation Mod Toxic Vacuolation Mod Platelet Estimate Adequate (ADEQUATE) Prothrombin Time 45.9 SEC (11.7-14.0) 51.4 SEC (11.7-14.0) Prothromb Time International Ratio 5.4 (0.8-1.1) 6.2 (0.8-1.1) Activated Partial Thromboplast Time 43 SEC (24-38) Sodium Level 126 mmol/L (136-145) 134 mmol/L (136-145) Potassium Level 6.5 mmol/L (3.5-5.1) 2.5 mmol/L (3.5-5.1) Chloride Level 92 mmol/L (98-107) 91 mmol/L (98-107) Carbon Dioxide Level 24 mmol/L (21-32) 37 mmol/L (21-32) Anion Gap 10 (6-14) 6 (6-14) Blood Urea Nitrogen 99 mg/dL (7-20) 84 mg/dL (7-20) Creatinine 1.8 mg/dL (0.6-1.0) 1.6 mg/dL (0.6-1.0) Estimated GFR (Cockcroft-Gault) 27.4 31.3 BUN/Creatinine Ratio 55 (6-20) 53 (6-20) Glucose Level 83 mg/dL (70-99) 147 mg/dL (70-99) Lactic Acid Level 1.0 mmol/L (0.4-2.0) Calcium Level 9.4 mg/dL (8.5-10.1) 8.7 mg/dL (8.5-10.1) Phosphorus Level 4.0 mg/dL (2.6-4.7) 4.4 mg/dL (2.6-4.7) Total Bilirubin 0.4 mg/dL (0.2-1.0) 0.5 mg/dL (0.2-1.0) Aspartate Amino Transf (AST/SGOT) 37 U/L (15-37) 31 U/L (15-37) Alanine Aminotransferase (ALT/SGPT) 29 U/L (14-59) 28 U/L (14-59) Alkaline Phosphatase 69 U/L (46-116) 61 U/L (46-116) Troponin I Quantitative 0.173 ng/mL (0.000-0.055) 0.154 ng/mL (0.000-0.055) YH-Taf-L-Type Natriuretic Peptide 9161 pg/mL (0-449) Total Protein 7.4 g/dL (6.4-8.2) 5.9 g/dL (6.4-8.2) Albumin 3.6 g/dL (3.4-5.0) 3.2 g/dL (3.4-5.0) Albumin/Globulin Ratio 0.9 (1.0-1.7) 1.2 (1.0-1.7) Lipase 342 U/L (73-393) Urine Collection Type Unknown Urine Color Yellow Urine Clarity Clear Urine pH 6.5 Urine Specific Kodak 1.010 Urine Protein Negative mg/dL (NEG-TRACE) Urine Glucose (UA) Negative mg/dL (NEG) Urine Ketones (Stick) Negative mg/dL (NEG) Urine Blood Trace (NEG) Urine Nitrite Negative (NEG) Urine Bilirubin Negative (NEG) Urine Urobilinogen Dipstick 0.2 mg/dL (0.2 mg/dL) Urine Leukocyte Esterase Trace (NEG) Urine RBC Occ /HPF (0-2) Urine WBC Rare /HPF (0-4) Urine Squamous Epithelial Cells Occ /LPF Urine Bacteria Few /HPF (0-FEW) Urine Hyaline Casts Occasional /HPF Urine Mucus Slight /LPF Laboratory Tests Test 06/23/17 20:50 06/23/17 21:08 06/24/17 03:05 White Blood Count 13.7 x10^3/uL (4.0-11.0) 9.3 x10^3/uL (4.0-11.0) Red Blood Count 4.21 x10^6/uL (3.50-5.40) 3.94 x10^6/uL (3.50-5.40) Hemoglobin 14.7 g/dL (12.0-15.5) 13.8 g/dL (12.0-15.5) Hematocrit 43.4 % (36.0-47.0) 40.4 % (36.0-47.0) Mean Corpuscular Volume 103 fL (79-100) 103 fL (79-100) Mean Corpuscular Hemoglobin 35 pg (25-35) 35 pg (25-35) Mean Corpuscular Hemoglobin Concent 34 g/dL (31-37) 34 g/dL (31-37) Red Cell Distribution Width 15.5 % (11.5-14.5) 16.4 % (11.5-14.5) Platelet Count 248 x10^3/uL (140-400) 199 x10^3/uL (140-400) Neutrophils (%) (Auto) 87 % (31-73) 82 % (31-73) Lymphocytes (%) (Auto) 9 % (24-48) 13 % (24-48) Monocytes (%) (Auto) 4 % (0-9) 4 % (0-9) Eosinophils (%) (Auto) 0 % (0-3) 0 % (0-3) Basophils (%) (Auto) 0 % (0-3) 0 % (0-3) Neutrophils # (Auto) 11.9 x10^3uL (1.8-7.7) 7.7 x10^3uL (1.8-7.7) Lymphocytes # (Auto) 1.2 x10^3/uL (1.0-4.8) 1.2 x10^3/uL (1.0-4.8) Monocytes # (Auto) 0.5 x10^3/uL (0.0-1.1) 0.4 x10^3/uL (0.0-1.1) Eosinophils # (Auto) 0.0 x10^3/uL (0.0-0.7) 0.0 x10^3/uL (0.0-0.7) Basophils # (Auto) 0.0 x10^3/uL (0.0-0.2) 0.0 x10^3/uL (0.0-0.2) Segmented Neutrophils % 87 % (35-66) Band Neutrophils % 3 % (0-9) Lymphocytes % 5 % (24-48) Monocytes % 5 % (0-10) Toxic Granulation Mod Toxic Vacuolation Mod Platelet Estimate Adequate (ADEQUATE) Prothrombin Time 45.9 SEC (11.7-14.0) 51.4 SEC (11.7-14.0) Prothromb Time International Ratio 5.4 (0.8-1.1) 6.2 (0.8-1.1) Activated Partial Thromboplast Time 43 SEC (24-38) Sodium Level 126 mmol/L (136-145) 134 mmol/L (136-145) Potassium Level 6.5 mmol/L (3.5-5.1) 2.5 mmol/L (3.5-5.1) Chloride Level 92 mmol/L (98-107) 91 mmol/L (98-107) Carbon Dioxide Level 24 mmol/L (21-32) 37 mmol/L (21-32) Anion Gap 10 (6-14) 6 (6-14) Blood Urea Nitrogen 99 mg/dL (7-20) 84 mg/dL (7-20) Creatinine 1.8 mg/dL (0.6-1.0) 1.6 mg/dL (0.6-1.0) Estimated GFR (Cockcroft-Gault) 27.4 31.3 BUN/Creatinine Ratio 55 (6-20) 53 (6-20) Glucose Level 83 mg/dL (70-99) 147 mg/dL (70-99) Lactic Acid Level 1.0 mmol/L (0.4-2.0) Calcium Level 9.4 mg/dL (8.5-10.1) 8.7 mg/dL (8.5-10.1) Phosphorus Level 4.0 mg/dL (2.6-4.7) 4.4 mg/dL (2.6-4.7) Total Bilirubin 0.4 mg/dL (0.2-1.0) 0.5 mg/dL (0.2-1.0) Aspartate Amino Transf (AST/SGOT) 37 U/L (15-37) 31 U/L (15-37) Alanine Aminotransferase (ALT/SGPT) 29 U/L (14-59) 28 U/L (14-59) Alkaline Phosphatase 69 U/L (46-116) 61 U/L (46-116) Troponin I Quantitative 0.173 ng/mL (0.000-0.055) 0.154 ng/mL (0.000-0.055) PD-Ctq-P-Type Natriuretic Peptide 9161 pg/mL (0-449) Total Protein 7.4 g/dL (6.4-8.2) 5.9 g/dL (6.4-8.2) Albumin 3.6 g/dL (3.4-5.0) 3.2 g/dL (3.4-5.0) Albumin/Globulin Ratio 0.9 (1.0-1.7) 1.2 (1.0-1.7) Lipase 342 U/L (73-393) Urine Collection Type Unknown Urine Color Yellow Urine Clarity Clear Urine pH 6.5 Urine Specific Kodak 1.010 Urine Protein Negative mg/dL (NEG-TRACE) Urine Glucose (UA) Negative mg/dL (NEG) Urine Ketones (Stick) Negative mg/dL (NEG) Urine Blood Trace (NEG) Urine Nitrite Negative (NEG) Urine Bilirubin Negative (NEG) Urine Urobilinogen Dipstick 0.2 mg/dL (0.2 mg/dL) Urine Leukocyte Esterase Trace (NEG) Urine RBC Occ /HPF (0-2) Urine WBC Rare /HPF (0-4) Urine Squamous Epithelial Cells Occ /LPF Urine Bacteria Few /HPF (0-FEW) Urine Hyaline Casts Occasional /HPF Urine Mucus Slight /LPF Medications Current Medications Acetaminophen (Tylenol) 500 mg PRN Q6HRS PRN PO MILD PAIN / TEMP; Start at 20:45 Allopurinol (Zyloprim) 100 mg DAILY PO ; Start 06/24/17 at 09:00 Alprazolam (Xanax) 0.25 mg PRN BID PRN PO ANXIETY / AGITATION; Start 06/23/17 at 20:45 Furosemide (Lasix) 80 mg BID94 PO ; Start 06/24/17 at 09:00 Guaifenesin (MUCINEX ER with DM) 1 tab PRN Q12HRS PRN PO MUCOUS/CONGESTION; Start 06/23/17 at 20:45 Levothyroxine Sodium (Synthroid) 100 mcg DAILY07 PO ; Start 06/24/17 at 07:00; Stop 06/24/17 at 07:00; Status DC Potassium Chloride (Klor-Con) 40 meq QID PO ; Start 06/23/17 at 21:00; Stop at 22:13; Status DC Propafenone HCl (Rythmol) 150 mg BID PO ; Start 06/23/17 at 21:00 Spironolactone (Aldactone) 25 mg BID94 PO ; Start 06/24/17 at 09:00 Tramadol HCl (Ultram) 50 mg PRN Q6HRS PRN PO PAIN Last administered on t 06:12; Start 06/23/17 at 20:45 Trazodone HCl (Desyrel) 25 mg HS PO Last administered on 06/24/17t 00:15; Start 06/23/17 at 21:00 Warfarin Sodium (Coumadin) 9 mg DAILY16 PO ; Start 06/24/17 at 16:00 Non-Formulary Medication 1,000 mg BID PO ; Start 06/23/17 at 21:00; Stop at 21:00; Status DC Calcium/Vitamin D (Oscal D 500mg/ 200uts) 1 tab BIDAFTMEAL PO ; Start 06/24/17 at 09:00 Cetirizine HCl (ZyrTEC) 10 mg PRN DAILY PRN PO ALLERGIES; Start 06/24/17 at 09: 00 Fish Oil (Fish Oil) 1,000 mg DAILY PO ; Start 06/24/17 at 09:00 Pantoprazole Sodium (Protonix) 40 mg DAILYAC PO ; Start 06/24/17 at 07:30 Paroxetine HCl (Paxil) 20 mg DAILY PO ; Start 06/24/17 at 09:00 Artificial Tears (Artificial Tears) 1 drop DAILY OU ; Start 06/24/17 at 09:00 Hydroxychloroquine Sulfate (Plaquenil) 200 mg DAILY08 PO ; Start 06/24/17 at 09: 00 Ferrous Sulfate (Feosol) 325 mg DAILYWBKFT PO ; Start 06/24/17 at 08:00 Multivitamins/ Minerals (I-Cristiano) 1 tab BID PO ; Start 06/24/17 at 09:00 Methotrexate (Rheumatrex) 17.5 mg We@0900 PO ; Start 06/26/17 at 09:00 Warfarin Sodium (Coumadin Per Pharmacy) 1 each PRN DAILY PRN MC SEE COMMENTS; Start 06/23/17 at 21:00 Calcium Gluconate (Calcium Gluconate) 1,000 mg 1X ONCE IVP Last administered on 06/23/17 21:42; Start 06/23/17 at 21:30; Stop 06/23/17 at 21:31; Status DC Dextrose (Dextrose 50%-Water Syringe) 25 gm 1X ONCE IV Last administered on 22:00; Start 06/23/17 at 21:30; Stop 06/23/17 at 21:31; Status DC Insulin Human Regular (NovoLIN R VIAL) 10 unit 1X ONCE IV Last administered on 06/23/17 21:58; Start 06/23/17 at 21:30; Stop 06/23/17 at 21:31; Status DC Sodium Bicarbonate 50 meq 1X ONCE IV Last administered on 06/23/17 21:49; Start 06/23/17 at 21:45; Stop 06/23/17 at 21:46; Status DC Sodium Bicarbonate 150 meq/Dextrose 1,150 ml @ 100 mls/hr [id number] IV Last administered on 06/23/17 22:39; Start 06/23/17 at 22:30 Sodium Polystyrene Sulfonate (Kayexalate) 30 gm 1X ONCE PO Last administered on 06/23/17 22:37; Start 06/23/17 at 22:30; Stop 06/23/17 at 22:31; Status DC Sodium Polystyrene Sulfonate (Kayexalate) 15 gm 1X PRN PRN PO K+ >6 4 HOURS AFTER INITIAL DOSE; Start 06/23/17 at 22:45 Fentanyl Citrate (Fentanyl 2ml Vial) 50 mcg PRN Q2HR PRN IV PAIN; Start at 23:30; Stop 06/24/17 at 23:29 Acetaminophen (Tylenol) 650 mg PRN Q4HRS PRN PO FEVER; Start 06/23/17 at 23:30 ; Stop 06/24/17 at 23:29 Levothyroxine Sodium (Synthroid) 100 mcg DAILY08 PO ; Start 06/24/17 at 08:00 Phytonadione (Mephyton) 2.5 mg 1X ONCE PO Last administered on 06/24/17 06:06 ; Start 06/24/17 at 06:00; Stop 06/24/17 at 06:01; Status DC Potassium Chloride (Klor-Con) 40 meq 1X ONCE PO Last administered on 06:06; Start 06/24/17 at 06:00; Stop 06/24/17 at 06:01; Status DC Active Scripts Active Reported Methotrexate (Methotrexate Sodium) 2.5 Mg Tablet 7 Tab PO SATURDAY [hydroxyl-chloroquine] 200 Mg PO DAILY08 Calcium + Vitamin D Tablet (Calcium Carbonate/Vitamin D3) 1 Each Tablet 1 Each PO BID Furosemide 80 Mg Tablet 1 Tab PO BID Claritin (Loratadine) 10 Mg Tablet 1 Tab PO DAILY PRN Coumadin (Warfarin Sodium) 6 Mg Tablet 1.5 Tab PO FR,MO Coumadin (Warfarin Sodium) 6 Mg Tablet 6 Mg PO ,,,SA,DUNCAN Klor-Con M20 (Potassium Chloride) 20 Meq Tab.er.prt 40 Meq PO QID Acetaminophen 500 Mg Tablet 1 Tab PO PRN Q6HRS PRN Mucinex Dm Er 600-30 Mg Tablet (Guaifenesin/Dextromethorphan) 1 Each Tab.er.12h 1 Tab PO PRN Q12HRS Trazodone Hcl 50 Mg Tablet 25 Mg PO HS Propafenone Hcl 150 Mg Tablet 150 Mg PO BID Systane 0.3-0.4% Eye Drops (Propylene Glycol/Peg 400/Pf) 1 Each Droperette 1 Each OP DAILY Xanax (Alprazolam) 0.25 Mg Tablet 1 Tab PO PRN BID PRN Biotin 1 Mg Capsule 1,000 Mg PO BID [lutein] 1 Tab BID [Iron ] 1 Tab DAILY Aldactone (Spironolactone) 25 Mg Tablet 1 Tab PO BID Omeprazole 40 Mg Capsule.dr 40 Mg PO DAILY Tramadol Hcl 50 Mg Tablet 50 Mg PO PRN Q6HRS PRN Fish Oil 1,000 Mg Softgel ([place]-3 Fatty Acids/Fish Oil) 1 Each Capsule 1 Each PO DAILY Allopurinol 100 Mg Tablet 100 Mg PO DAILY Paxil (Paroxetine Hcl) 40 Mg Tablet 20 Mg PO DAILY Levothyroxine Sodium 100 Mcg Tablet 100 Mcg PO DAILY Vitals/I & O Vital Sign - Last 24 Hours 06/23/17 06/23/17 06/23/17 06/23/17 19:30 20:04 20:39 21:04 Temp 97.6 97.6 Pulse 72 60 64 65 Resp 19 23 22 B/P (MAP) 107/70 (82) 108/65 (79) 108/58 (75) 109/66 (80) Pulse Ox 98 96 99 O2 Delivery Room Air Room Air Room Air 06/23/17 06/23/17 06/23/17 06/23/17 21:36 22:06 22:36 23:40 Pulse 62 84 78 72 Resp 32 20 16 B/P (MAP) 110/61 (77) 107/57 (74) 111/58 (75) 115/63 (80) Pulse Ox 99 98 99 O2 Delivery Room Air Room Air Room Air 06/23/17 06/24/17 06/24/17 06/24/17 23:59 00:00 00:14 00:15 Temp 97.8 97.8 Pulse 74 74 Resp 16 16 16 B/P (MAP) 100/65 (77) 105/62 (76) Pulse Ox 98 100 O2 Delivery Room Air Room Air Room Air Room Air 06/24/17 06/24/17 06/24/17 06/24/17 01:00 01:15 02:00 03:00 Pulse 72 81 70 Resp 16 18 16 16 B/P (MAP) 111/66 (81) 98/60 (73) 100/60 (73) Pulse Ox 98 98 98 O2 Delivery Room Air Room Air Room Air Room Air 06/24/17 06/24/17 06/24/17 06/24/17 04:00 04:00 05:00 06:00 Temp 98.0 98.0 Pulse 69 64 70 Resp 16 16 16 B/P (MAP) 112/66 (81) 99/60 (73) 90/62 (71) Pulse Ox 98 98 98 O2 Delivery Room Air Room Air Room Air Room Air 06/24/17 06:12 Resp 20 O2 Delivery Room Air Intake and Output 06/23/17 06/23/17 06/24/17 15:00 23:00 07:00 Intake Total 1063 ml Balance 1063 ml SWEETIE SALDAÑA MD Jun 24, 2017 08:16
[2017-06-24] MEDS: OMEGA-3 FATTY ACIDS/FISH OIL 1,000 MG CAPSULE. PO SCH (08:24)
[2017-06-24] MEDS: HYDROXYCHLOROQUINE 200 MG TABLET PO SCH (08:24)
[2017-06-24] MEDS: POLYVINYL ALCOHOL 1.4% OPHTH SOLUTION 15ML BOTTLE. OU SCH (08:24)
[2017-06-24] MEDS: PANTOPRAZOLE 40 MG TABLET.DR. PO SCH (08:25)
[2017-06-24] MEDS: MULTIVITAMIN I-VITE TABLET. PO SCH ×2 (08:25→21:08)
[2017-06-24] MEDS: PARoxetine 20 MG TABLET PO SCH (08:25)
[2017-06-24] MEDS: ALLOPURINOL 100 MG TABLET. PO SCH (08:25)
[2017-06-24] MEDS: LEVOTHYROXINE 100 MCG TABLET PO SCH (08:25)
[2017-06-24] MEDS: CALCIUM CARB/VIT D3 500/200 TABLET. PO SCH ×2 (08:25→18:20)
[2017-06-24] MEDS: FERROUS SULFATE 325 MG TABLET. PO SCH (08:25)
[2017-06-24] MEDS: PROPAFENONE 150 MG TABLET. PO SCH ×2 (08:25→21:08)
[2017-06-24] MEDS: SPIRONOLACTONE 25 MG TABLET PO SCH ×2 (08:25→15:31)
[2017-06-24] MEDS ORDERED: CETIRIZINE HCL 10 MG TABLET. PO PRN (09:00)
[2017-06-24] MEDS ORDERED: FUROSEMIDE 80 MG TABLET. PO SCH (09:00)
[2017-06-24] MEDS: SODIUM BICARBONATE VIAL 150 MEQ in IV DEXTROSE 5% 1,000 ML IV SCH (10:00)
[2017-06-24] MEDS ORDERED: MAGNESIUM SULFATE 2GM 50 ML IV PRN (11:00)
--- NOTE | 2017-06-24 11:05 | PDOC2 ---
CONSULT Date of Consult Date of Consult DATE: 06/24/17 TIME: 10:54 Reason for Consult Reason for Consult: K imbalance Referring Physician Referring Physician: Dr Elias Identification/Chief Complaint Chief Complaint weakness Problems: Source Source: Chart review, Patient History of Present Illness Reason for Visit: as dictated Past Medical History Cardiovascular: AFIB, CHF, Hyperlipidemia CENTRAL NERVOUS SYSTEM: TIA GI: GERD Heme/Onc: Anemia NOS, Cancer Psych: Anxiety, Depression Musculoskeletal: Osteoarthritis, Stiffness Rheumatologic: Gout, Rheumatoid arthritis Endocrine: Hypothyroidism Past Surgical History Past Surgical History: Pacemaker, Cholecystectomy, Other Family History Family History: Cancer Social History ALCOHOL: none Drugs: None Current Problem List Problem List Problems Medical Problems: (1) Hyperkalemia Status: Acute (2) Renal failure Status: Acute Current Medications Current Medications Current Medications Acetaminophen (Tylenol) 500 mg PRN Q6HRS PRN PO MILD PAIN / TEMP; Start at 20:45 Allopurinol (Zyloprim) 100 mg DAILY PO Last administered on 06/24/17 08:25; Start 06/24/17 at 09:00 Alprazolam (Xanax) 0.25 mg PRN BID PRN PO ANXIETY / AGITATION; Start 06/23/17 at 20:45 Furosemide (Lasix) 80 mg BID94 PO Last administered on 06/24/17 08:25; Start 06/24/17 at 09:00 Guaifenesin (MUCINEX ER with DM) 1 tab PRN Q12HRS PRN PO MUCOUS/CONGESTION; Start 06/23/17 at 20:45 Levothyroxine Sodium (Synthroid) 100 mcg DAILY07 PO ; Start 06/24/17 at 07:00; Stop 06/24/17 at 07:00; Status DC Potassium Chloride (Klor-Con) 40 meq QID PO ; Start 06/23/17 at 21:00; Stop at 22:13; Status DC Propafenone HCl (Rythmol) 150 mg BID PO Last administered on 06/24/17 08:25; Start 06/23/17 at 21:00 Spironolactone (Aldactone) 25 mg BID94 PO Last administered on 06/24/17 08:25 ; Start 06/24/17 at 09:00 Tramadol HCl (Ultram) 50 mg PRN Q6HRS PRN PO PAIN Last administered on 06:12; Start 06/23/17 at 20:45 Trazodone HCl (Desyrel) 25 mg HS PO Last administered on 06/24/17 00:15; Start 06/23/17 at 21:00 Warfarin Sodium (Coumadin) 9 mg DAILY16 PO ; Start 06/24/17 at 16:00; Stop 06/24 at 16:00; Status DC Non-Formulary Medication 1,000 mg BID PO ; Start 06/23/17 at 21:00; Stop at 21:00; Status DC Calcium/Vitamin D (Oscal D 500mg/ 200uts) 1 tab BIDAFTMEAL PO Last administered on 06/24/17 08:25; Start 06/24/17 at 09:00 Cetirizine HCl (ZyrTEC) 10 mg PRN DAILY PRN PO ALLERGIES; Start 06/24/17 at 09: 00 Fish Oil (Fish Oil) 1,000 mg DAILY PO Last administered on 06/24/17 08:24; Start 06/24/17 at 09:00 Pantoprazole Sodium (Protonix) 40 mg DAILYAC PO Last administered on 06/24/17 08:25; Start 06/24/17 at 07:30 Paroxetine HCl (Paxil) 20 mg DAILY PO Last administered on 06/24/17 08:25; Start 06/24/17 at 09:00 Artificial Tears (Artificial Tears) 1 drop DAILY OU Last administered on 08:24; Start 06/24/17 at 09:00 Hydroxychloroquine Sulfate (Plaquenil) 200 mg DAILY08 PO Last administered on 08:24; Start 06/24/17 at 09:00 Ferrous Sulfate (Feosol) 325 mg DAILYWBKFT PO Last administered on 06/24/17 08 :25; Start 06/24/17 at 08:00 Multivitamins/ Minerals (I-Cristiano) 1 tab BID PO Last administered on 06/24/17 08 :25; Start 06/24/17 at 09:00 Methotrexate (Rheumatrex) 17.5 mg We@0900 PO ; Start 06/26/17 at 09:00 Warfarin Sodium (Coumadin Per Pharmacy) 1 each PRN DAILY PRN MC SEE COMMENTS Last administered on 06/24/17 09:47; Start 06/23/17 at 21:00 Calcium Gluconate (Calcium Gluconate) 1,000 mg 1X ONCE IVP Last administered on 06/23/17 21:42; Start 06/23/17 at 21:30; Stop 06/23/17 at 21:31; Status DC Dextrose (Dextrose 50%-Water Syringe) 25 gm 1X ONCE IV Last administered on 22:00; Start 06/23/17 at 21:30; Stop 06/23/17 at 21:31; Status DC Insulin Human Regular (NovoLIN R VIAL) 10 unit 1X ONCE IV Last administered on 06/23/17 21:58; Start 06/23/17 at 21:30; Stop 06/23/17 at 21:31; Status DC Sodium Bicarbonate 50 meq 1X ONCE IV Last administered on 06/23/17 21:49; Start 06/23/17 at 21:45; Stop 06/23/17 at 21:46; Status DC Sodium Bicarbonate 150 meq/Dextrose 1,150 ml @ 100 mls/hr [id number] IV Last administered on 06/23/17 22:39; Start 06/23/17 at 22:30 Sodium Polystyrene Sulfonate (Kayexalate) 30 gm 1X ONCE PO Last administered on 06/23/17 22:37; Start 06/23/17 at 22:30; Stop 06/23/17 at 22:31; Status DC Sodium Polystyrene Sulfonate (Kayexalate) 15 gm 1X PRN PRN PO K+ >6 4 HOURS AFTER INITIAL DOSE; Start 06/23/17 at 22:45 Fentanyl Citrate (Fentanyl 2ml Vial) 50 mcg PRN Q2HR PRN IV PAIN; Start at 23:30; Stop 06/24/17 at 23:29 Acetaminophen (Tylenol) 650 mg PRN Q4HRS PRN PO FEVER; Start 06/23/17 at 23:30 ; Stop 06/24/17 at 23:29 Levothyroxine Sodium (Synthroid) 100 mcg DAILY08 PO Last administered on 08:25; Start 06/24/17 at 08:00 Phytonadione (Mephyton) 2.5 mg 1X ONCE PO Last administered on 06/24/17 06:06 ; Start 06/24/17 at 06:00; Stop 06/24/17 at 06:01; Status DC Potassium Chloride (Klor-Con) 40 meq 1X ONCE PO Last administered on 06:06; Start 06/24/17 at 06:00; Stop 06/24/17 at 06:01; Status DC Potassium Chloride (Klor-Con) 40 meq 1X ONCE PO Last administered on 09:43; Start 06/24/17 at 09:45; Stop 06/24/17 at 09:46; Status DC Potassium Chloride (Klor-Con) 40 meq 1X ONCE PO ; Start 06/24/17 at 14:00; Stop 06/24/17 at 14:01 Warfarin Sodium (Coumadin - No Dose Today) 1 each 1X WARF ONCE MC Last administered on 06/24/17 10:19; Start 06/24/17 at 16:00; Stop 06/24/17 at 16:01 Active Scripts Active Reported Methotrexate (Methotrexate Sodium) 2.5 Mg Tablet 7 Tab PO SATURDAY [hydroxyl-chloroquine] 200 Mg PO DAILY08 Calcium + Vitamin D Tablet (Calcium Carbonate/Vitamin D3) 1 Each Tablet 1 Each PO BID Furosemide 80 Mg Tablet 1 Tab PO BID Claritin (Loratadine) 10 Mg Tablet 1 Tab PO DAILY PRN Coumadin (Warfarin Sodium) 6 Mg Tablet 1.5 Tab PO ,MO Coumadin (Warfarin Sodium) 6 Mg Tablet 6 Mg PO ,,,SA,DUNCAN Klor-Con M20 (Potassium Chloride) 20 Meq Tab.er.prt 40 Meq PO QID Acetaminophen 500 Mg Tablet 1 Tab PO PRN Q6HRS PRN Mucinex Dm Er 600-30 Mg Tablet (Guaifenesin/Dextromethorphan) 1 Each Tab.er.12h 1 Tab PO PRN Q12HRS Trazodone Hcl 50 Mg Tablet 25 Mg PO HS Propafenone Hcl 150 Mg Tablet 150 Mg PO BID Systane 0.3-0.4% Eye Drops (Propylene Glycol/Peg 400/Pf) 1 Each Droperette 1 Each OP DAILY Xanax (Alprazolam) 0.25 Mg Tablet 1 Tab PO PRN BID PRN Biotin 1 Mg Capsule 1,000 Mg PO BID [lutein] 1 Tab BID [Iron ] 1 Tab DAILY Aldactone (Spironolactone) 25 Mg Tablet 1 Tab PO BID Omeprazole 40 Mg Capsule.dr 40 Mg PO DAILY Tramadol Hcl 50 Mg Tablet 50 Mg PO PRN Q6HRS PRN Fish Oil 1,000 Mg Softgel ([place]-3 Fatty Acids/Fish Oil) 1 Each Capsule 1 Each PO DAILY Allopurinol 100 Mg Tablet 100 Mg PO DAILY Paxil (Paroxetine Hcl) 40 Mg Tablet 20 Mg PO DAILY Levothyroxine Sodium 100 Mcg Tablet 100 Mcg PO DAILY Allergies Allergies: Coded Allergies: adhesive (Verified Allergy, Intermediate, "Breaks out", 04/02/16) Pt states, "tape and band-aids." albuterol (Verified Allergy, Intermediate, "CAN'T BREATHE", 04/02/16) codeine (Verified Allergy, Intermediate, "Breaks out.", 04/02/16) oxycodone (Verified Allergy, Intermediate, Rash, 04/02/16) duloxetine (Verified Adverse Reaction, Intermediate, edema, 04/02/16) pregabalin (Verified Adverse Reaction, Intermediate, edema, 04/02/16) ROS Review of System GEN: no Fevers no Chills Gen Weakness + Fatigue EYES: no new Visual Complaints ENT: no EN Drainage no Hearing deficiets CVS: no Orthopnea no CP RESP: no SOB no WALDROP GI: no Nausea no Vomiting : no Dysuria no Urgency HEME: no easy bruising no Palp Ly Nodes NEURO no Focal Weakness no Sz PSYCH: no Suicidal Ideation no Depression SKIN: no Rashes ENDO: no Polyuria or Polydipsia no Hot/Cold Intolerance MU SK: occ Arthraigia no Myalgia Physical Exam Physical Exam General Appearance: Awake Alert Oriented x 3 In no Distress Eyes: VIsion Unchanged Conjunctiva Normal EN: No EN Drainage Mucous Memb. moist Neck: no JVD + JVP Supple no Thyromegaly CVS: S1 S2 + Murmur No Gallop No Rub no Edema Resp: no Rales no Rhonchi no Acc. Muscle use GI: BAS +ve NO Bruit Non Tender Non Distended : no CVA tenderness; no Suprapubic Tenderness SKIN: no Rashes Breast Exam deferred Mu.Sk: Adequate ROM min Muscle Atrophy Heme: Unable to palpate Obvious LAD no palp Splenomegaly NEURO: Good Strength and Tone Cranial Nerves II - XII grossly intact Psych: not Depressed no Active hallucination Vital Signs Vital Signs Date Time Temp Pulse Resp B/P (MAP) Pulse Ox O2 Delivery O2 Flow Rate FiO2 06/24/17 08:25 70 105/66 06/24/17 07:12 98 Room Air 06/24/17 06:12 20 06/24/17 05:00 98.0 98.0 Assessment & Plan HypoKalmeia - after temporizing measures for ^^ K. replacement as ordered CKD III: Current FLuid and E-lyte status does not necessitate emergent need for Dialysis. Will re-evaluate for Dialysis in am HTN: Current BP meds reviewed. See orders for changes. ? CHF + VHDz - previous ECHO NOTed. repeat ECHO to reval, check CXR ? some Vol depletion - IV NS fornow Discussed Plan of Care and prognosis etc. at length with pt Labs Labs Laboratory Tests Test 06/23/17 20:50 06/23/17 21:08 06/24/17 03:05 06/24/17 09:05 White Blood Count 13.7 x10^3/uL (4.0-11.0) 9.3 x10^3/uL (4.0-11.0) Red Blood Count 4.21 x10^6/uL (3.50-5.40) 3.94 x10^6/uL (3.50-5.40) Hemoglobin 14.7 g/dL (12.0-15.5) 13.8 g/dL (12.0-15.5) Hematocrit 43.4 % (36.0-47.0) 40.4 % (36.0-47.0) Mean Corpuscular Volume 103 fL (79-100) 103 fL (79-100) Mean Corpuscular Hemoglobin 35 pg (25-35) 35 pg (25-35) Mean Corpuscular Hemoglobin Concent 34 g/dL (31-37) 34 g/dL (31-37) Red Cell Distribution Width 15.5 % (11.5-14.5) 16.4 % (11.5-14.5) Platelet Count 248 x10^3/uL (140-400) 199 x10^3/uL (140-400) Neutrophils (%) (Auto) 87 % (31-73) 82 % (31-73) Lymphocytes (%) (Auto) 9 % (24-48) 13 % (24-48) Monocytes (%) (Auto) 4 % (0-9) 4 % (0-9) Eosinophils (%) (Auto) 0 % (0-3) 0 % (0-3) Basophils (%) (Auto) 0 % (0-3) 0 % (0-3) Neutrophils # (Auto) 11.9 x10^3uL (1.8-7.7) 7.7 x10^3uL (1.8-7.7) Lymphocytes # (Auto) 1.2 x10^3/uL (1.0-4.8) 1.2 x10^3/uL (1.0-4.8) Monocytes # (Auto) 0.5 x10^3/uL (0.0-1.1) 0.4 x10^3/uL (0.0-1.1) Eosinophils # (Auto) 0.0 x10^3/uL (0.0-0.7) 0.0 x10^3/uL (0.0-0.7) Basophils # (Auto) 0.0 x10^3/uL (0.0-0.2) 0.0 x10^3/uL (0.0-0.2) Segmented Neutrophils % 87 % (35-66) Band Neutrophils % 3 % (0-9) Lymphocytes % 5 % (24-48) Monocytes % 5 % (0-10) Toxic Granulation Mod Toxic Vacuolation Mod Platelet Estimate Adequate (ADEQUATE) Prothrombin Time 45.9 SEC (11.7-14.0) 51.4 SEC (11.7-14.0) Prothromb Time International Ratio 5.4 (0.8-1.1) 6.2 (0.8-1.1) Activated Partial Thromboplast Time 43 SEC (24-38) Sodium Level 126 mmol/L (136-145) 134 mmol/L (136-145) Potassium Level 6.5 mmol/L (3.5-5.1) 2.5 mmol/L (3.5-5.1) 2.6 mmol/L (3.5-5.1) Chloride Level 92 mmol/L (98-107) 91 mmol/L (98-107) Carbon Dioxide Level 24 mmol/L (21-32) 37 mmol/L (21-32) Anion Gap 10 (6-14) 6 (6-14) Blood Urea Nitrogen 99 mg/dL (7-20) 84 mg/dL (7-20) Creatinine 1.8 mg/dL (0.6-1.0) 1.6 mg/dL (0.6-1.0) Estimated GFR (Cockcroft-Gault) 27.4 31.3 BUN/Creatinine Ratio 55 (6-20) 53 (6-20) Glucose Level 83 mg/dL (70-99) 147 mg/dL (70-99) Lactic Acid Level 1.0 mmol/L (0.4-2.0) Calcium Level 9.4 mg/dL (8.5-10.1) 8.7 mg/dL (8.5-10.1) Phosphorus Level 4.0 mg/dL (2.6-4.7) 4.4 mg/dL (2.6-4.7) Total Bilirubin 0.4 mg/dL (0.2-1.0) 0.5 mg/dL (0.2-1.0) Aspartate Amino Transf (AST/SGOT) 37 U/L (15-37) 31 U/L (15-37) Alanine Aminotransferase (ALT/SGPT) 29 U/L (14-59) 28 U/L (14-59) Alkaline Phosphatase 69 U/L (46-116) 61 U/L (46-116) Troponin I Quantitative 0.173 ng/mL (0.000-0.055) 0.154 ng/mL (0.000-0.055) 0.188 ng/mL (0.000-0.055) DH-Dfm-I-Type Natriuretic Peptide 9161 pg/mL (0-449) Total Protein 7.4 g/dL (6.4-8.2) 5.9 g/dL (6.4-8.2) Albumin 3.6 g/dL (3.4-5.0) 3.2 g/dL (3.4-5.0) Albumin/Globulin Ratio 0.9 (1.0-1.7) 1.2 (1.0-1.7) Lipase 342 U/L (73-393) Urine Collection Type Unknown Urine Color Yellow Urine Clarity Clear Urine pH 6.5 Urine Specific [place] 1.010 Urine Protein Negative mg/dL (NEG-TRACE) Urine Glucose (UA) Negative mg/dL (NEG) Urine Ketones (Stick) Negative mg/dL (NEG) Urine Blood Trace (NEG) Urine Nitrite Negative (NEG) Urine Bilirubin Negative (NEG) Urine Urobilinogen Dipstick 0.2 mg/dL (0.2 mg/dL) Urine Leukocyte Esterase Trace (NEG) Urine RBC Occ /HPF (0-2) Urine WBC Rare /HPF (0-4) Urine Squamous Epithelial Cells Occ /LPF Urine Bacteria Few /HPF (0-FEW) Urine Hyaline Casts Occasional /HPF Urine Mucus Slight /LPF Laboratory Tests Test 06/23/17 20:50 06/23/17 21:08 06/24/17 03:05 06/24/17 09:05 White Blood Count 13.7 x10^3/uL (4.0-11.0) 9.3 x10^3/uL (4.0-11.0) Red Blood Count 4.21 x10^6/uL (3.50-5.40) 3.94 x10^6/uL (3.50-5.40) Hemoglobin 14.7 g/dL (12.0-15.5) 13.8 g/dL (12.0-15.5) Hematocrit 43.4 % (36.0-47.0) 40.4 % (36.0-47.0) Mean Corpuscular Volume 103 fL (79-100) 103 fL (79-100) Mean Corpuscular Hemoglobin 35 pg (25-35) 35 pg (25-35) Mean Corpuscular Hemoglobin Concent 34 g/dL (31-37) 34 g/dL (31-37) Red Cell Distribution Width 15.5 % (11.5-14.5) 16.4 % (11.5-14.5) Platelet Count 248 x10^3/uL (140-400) 199 x10^3/uL (140-400) Neutrophils (%) (Auto) 87 % (31-73) 82 % (31-73) Lymphocytes (%) (Auto) 9 % (24-48) 13 % (24-48) Monocytes (%) (Auto) 4 % (0-9) 4 % (0-9) Eosinophils (%) (Auto) 0 % (0-3) 0 % (0-3) Basophils (%) (Auto) 0 % (0-3) 0 % (0-3) Neutrophils # (Auto) 11.9 x10^3uL (1.8-7.7) 7.7 x10^3uL (1.8-7.7) Lymphocytes # (Auto) 1.2 x10^3/uL (1.0-4.8) 1.2 x10^3/uL (1.0-4.8) Monocytes # (Auto) 0.5 x10^3/uL (0.0-1.1) 0.4 x10^3/uL (0.0-1.1) Eosinophils # (Auto) 0.0 x10^3/uL (0.0-0.7) 0.0 x10^3/uL (0.0-0.7) Basophils # (Auto) 0.0 x10^3/uL (0.0-0.2) 0.0 x10^3/uL (0.0-0.2) Segmented Neutrophils % 87 % (35-66) Band Neutrophils % 3 % (0-9) Lymphocytes % 5 % (24-48) Monocytes % 5 % (0-10) Toxic Granulation Mod Toxic Vacuolation Mod Platelet Estimate Adequate (ADEQUATE) Prothrombin Time 45.9 SEC (11.7-14.0) 51.4 SEC (11.7-14.0) Prothromb Time International Ratio 5.4 (0.8-1.1) 6.2 (0.8-1.1) Activated Partial Thromboplast Time 43 SEC (24-38) Sodium Level 126 mmol/L (136-145) 134 mmol/L (136-145) Potassium Level 6.5 mmol/L (3.5-5.1) 2.5 mmol/L (3.5-5.1) 2.6 mmol/L (3.5-5.1) Chloride Level 92 mmol/L (98-107) 91 mmol/L (98-107) Carbon Dioxide Level 24 mmol/L (21-32) 37 mmol/L (21-32) Anion Gap 10 (6-14) 6 (6-14) Blood Urea Nitrogen 99 mg/dL (7-20) 84 mg/dL (7-20) Creatinine 1.8 mg/dL (0.6-1.0) 1.6 mg/dL (0.6-1.0) Estimated GFR (Cockcroft-Gault) 27.4 31.3 BUN/Creatinine Ratio 55 (6-20) 53 (6-20) Glucose Level 83 mg/dL (70-99) 147 mg/dL (70-99) Lactic Acid Level 1.0 mmol/L (0.4-2.0) Calcium Level 9.4 mg/dL (8.5-10.1) 8.7 mg/dL (8.5-10.1) Phosphorus Level 4.0 mg/dL (2.6-4.7) 4.4 mg/dL (2.6-4.7) Total Bilirubin 0.4 mg/dL (0.2-1.0) 0.5 mg/dL (0.2-1.0) Aspartate Amino Transf (AST/SGOT) 37 U/L (15-37) 31 U/L (15-37) Alanine Aminotransferase (ALT/SGPT) 29 U/L (14-59) 28 U/L (14-59) Alkaline Phosphatase 69 U/L (46-116) 61 U/L (46-116) Troponin I Quantitative 0.173 ng/mL (0.000-0.055) 0.154 ng/mL (0.000-0.055) 0.188 ng/mL (0.000-0.055) BV-Myc-H-Type Natriuretic Peptide 9161 pg/mL (0-449) Total Protein 7.4 g/dL (6.4-8.2) 5.9 g/dL (6.4-8.2) Albumin 3.6 g/dL (3.4-5.0) 3.2 g/dL (3.4-5.0) Albumin/Globulin Ratio 0.9 (1.0-1.7) 1.2 (1.0-1.7) Lipase 342 U/L (73-393) Urine Collection Type Unknown Urine Color Yellow Urine Clarity Clear Urine pH 6.5 Urine Specific [place] 1.010 Urine Protein Negative mg/dL (NEG-TRACE) Urine Glucose (UA) Negative mg/dL (NEG) Urine Ketones (Stick) Negative mg/dL (NEG) Urine Blood Trace (NEG) Urine Nitrite Negative (NEG) Urine Bilirubin Negative (NEG) Urine Urobilinogen Dipstick 0.2 mg/dL (0.2 mg/dL) Urine Leukocyte Esterase Trace (NEG) Urine RBC Occ /HPF (0-2) Urine WBC Rare /HPF (0-4) Urine Squamous Epithelial Cells Occ /LPF Urine Bacteria Few /HPF (0-FEW) Urine Hyaline Casts Occasional /HPF Urine Mucus Slight /LPF MANISH YUSUF MD Jun 24, 2017 11:05
[2017-06-24] MEDS: POTASSIUM CHLORIDE 40 MEQ in IV NORMAL SALINE 1000ML BAG 1,000 ML IV SCH (12:00)
--- NOTE | 2017-06-24 14:27 | RAD ---
Portable chest, 06/24/2017: History: Check line placement Comparison is made to yesterday's study. The left-sided transvenous pacemaker remains in place. A right jugular central venous catheter has been inserted extending into the right atrium. The heart is within normal limits in size. Postsurgical changes are again noted on the left with volume loss. No acute infiltrate is seen. There is no evidence of pneumothorax or pleural fluid. IMPRESSION: 1. Interval insertion of a right jugular central venous catheter extending into the right atrium. 2. No other significant change since yesterday's study.
--- NOTE | 2017-06-24 15:52 | CARD ---
APPROVED REPORT EXAM: Two-dimensional and M-mode echocardiogram with Doppler and color Doppler. Other Information Quality : Average Rhythm : Pacemaker INDICATION Cardiac Disease: CAD Congestive Heart Failure 2D DIMENSIONS RVDd1.9 (2.9-3.5cm)Left Atrium(2D)3.6 (1.6-4.0cm) IVSd1.1 (0.7-1.1cm)Aortic Root(2D)2.6 (2.0-3.7cm) LVDd3.3 (3.9-5.9cm)LVOT Diameter2.0 (1.8-2.4cm) PWd1.1 (0.7-1.1cm)LVDs2.2 (2.5-4.0cm) FS (%) 23.2 %SV27.7 ml LVEF(%)40.0 (>50%) Aortic Valve AoV Peak Silas.105.3cm/sAoV VTI17.1cm AO Peak GR.4.4mmHgLVOT VTI 11.18cm AO Mean GR.2mmHgAI P 1/2 [id number] Mitral Valve MV E Thdibjok07.3cm/sMV E Peak Gr.3mmHg MV DECEL [id number] E Mean Gr.1mmHg MV [id number] (PHT)5.24cm2 TDI Lateral E' P. V7.27cm/sMedial E' P. V4.44cm/s E/Lateral E'11.3E/Medial E'18.5 Tricuspid Valve TR P. [id number]/sRAP [id number] TR Peak Gr.[id number] LEFT VENTRICLE The left ventricle is normal size. There is normal left ventricular wall thickness. Left ventricle sy stolic function is mildly impaired. The Ejection Fraction is 40% Apical motion consistent with pacema ker activation. Unable to assess diastolic function. RIGHT VENTRICLE The right ventricle is normal size. The right ventricular systolic function is normal. There is a pac emaker lead seen in the RV/RA. ATRIA The left atrium size is normal. The right atrium size is normal. The interatrial septum is intact wit h no evidence for an atrial septal defect. AORTIC VALVE The aortic valve is moderately sclerotic. The aortic valve is trileaflet. Doppler and Color Flow reve aled moderate aortic regurgitation. There is no significant aortic valvular stenosis. MITRAL VALVE Mitral annular calcification is mild to moderate. The mitral valve leaflets are thickened and calcifi ed. There is a slight prolapse of the anterior mitral valve leaflet. There is no mitral valve stenosi s. Doppler and Color Flow revealed mild mitral regurgitation. TRICUSPID VALVE The tricuspid valve is normal in structure. Doppler and Color Flow revealed mild tricuspid regurgitat ion. The PA pressure was estimated at 26 mmHg. There is no tricuspid valve stenosis. PULMONIC VALVE The pulmonic valve is not well visualized. Doppler and Color Flow revealed no pulmonic valvular regur gitation. There is no pulmonic valvular stenosis. GREAT VESSELS The aortic root is normal in size. Pulmonary veins not recorded. The IVC is normal in size and collap ses >50% with inspiration. PERICARDIAL EFFUSION There is no evidence of significant pericardial effusion. Critical Notification Critical Value: No <Conclusion> Left ventricle systolic function is mildly impaired. The Ejection Fraction is 40% The left atrium size is normal. The right atrium size is normal. Doppler and Color Flow revealed moderate aortic regurgitation. The aortic valve is moderately sclerotic. The aortic valve is trileaflet. Doppler and Color Flow revealed mild mitral regurgitation. Mitral annular calcification is mild to moderate. The mitral valve leaflets are thickened and calcified. Doppler and Color Flow revealed mild tricuspid regurgitation. The PA pressure was estimated at 26 mmHg. The pulmonic valve is not well visualized. There is no evidence of significant pericardial effusion.
[2017-06-24] MEDS ORDERED: WARFARIN 3 MG TABLET. PO SCH (16:00)
--- NOTE | 2017-06-24 16:54 | PDOC2 ---
CONSULT Date of Consult Date of Consult DATE: 06/24/17 TIME: 16:39 Reason for Consult Reason for Consult: hypokalemia Referring Physician Referring Physician: Dr. Elias Identification/Chief Complaint Chief Complaint weakness Problems: History of Present Illness Reason for Visit: Patient with a history of valvular heart disease, with aortic insufficiency and cardiomyopathy. She also has chronic renal insufficiency, not currently on dialysis. Patient comes in with severe fatigue, and weakness and a lot of muscle aches with shortness of breath. She was evaluated in the ED and found to have a potassium level of 6.5 and an INR of 6.7. The patient received Kayexalate , bicarbonate, insulin, D50. The follow up K+ level was 2.6, and the patient was experiencing severe cramping in the bilateral lower extremity. At the time I saw the patient she was extremely uncomfortable and had no IV access to start hydration, K+, FFP's Past Medical History Cardiovascular: AFIB, CHF, Hyperlipidemia CENTRAL NERVOUS SYSTEM: TIA GI: GERD Heme/Onc: Anemia NOS, Cancer Psych: Anxiety, Depression Musculoskeletal: Osteoarthritis, Stiffness Rheumatologic: Gout, Rheumatoid arthritis Endocrine: Hypothyroidism Past Surgical History Past Surgical History: Pacemaker, Cholecystectomy, Other Family History Family History: Cancer Social History ALCOHOL: none Drugs: None Current Problem List Problem List Problems Medical Problems: (1) Hyperkalemia Status: Acute (2) Renal failure Status: Acute Current Medications Current Medications Current Medications Acetaminophen (Tylenol) 500 mg PRN Q6HRS PRN PO MILD PAIN / TEMP; Start at 20:45 Allopurinol (Zyloprim) 100 mg DAILY PO Last administered on 06/24/17 08:25; Start 06/24/17 at 09:00 Alprazolam (Xanax) 0.25 mg PRN BID PRN PO ANXIETY / AGITATION; Start 06/23/17 at 20:45 Furosemide (Lasix) 80 mg BID94 PO Last administered on 06/24/17 08:25; Start 06/24/17 at 09:00; Stop 06/24/17 at 11:09; Status DC Guaifenesin (MUCINEX ER with DM) 1 tab PRN Q12HRS PRN PO MUCOUS/CONGESTION; Start 06/23/17 at 20:45 Levothyroxine Sodium (Synthroid) 100 mcg DAILY07 PO ; Start 06/24/17 at 07:00; Stop 06/24/17 at 07:00; Status DC Potassium Chloride (Klor-Con) 40 meq QID PO ; Start 06/23/17 at 21:00; Stop at 22:13; Status DC Propafenone HCl (Rythmol) 150 mg BID PO Last administered on 06/24/17 08:25; Start 06/23/17 at 21:00 Spironolactone (Aldactone) 25 mg BID94 PO Last administered on 06/24/17 15:31 ; Start 06/24/17 at 09:00 Tramadol HCl (Ultram) 50 mg PRN Q6HRS PRN PO PAIN Last administered on 06:12; Start 06/23/17 at 20:45 Trazodone HCl (Desyrel) 25 mg HS PO Last administered on 06/24/17 00:15; Start 06/23/17 at 21:00 Warfarin Sodium (Coumadin) 9 mg DAILY16 PO ; Start 06/24/17 at 16:00; Stop 06/24 at 16:00; Status DC Non-Formulary Medication 1,000 mg BID PO ; Start 06/23/17 at 21:00; Stop at 21:00; Status DC Calcium/Vitamin D (Oscal D 500mg/ 200uts) 1 tab BIDAFTMEAL PO Last administered on 06/24/17 08:25; Start 06/24/17 at 09:00 Cetirizine HCl (ZyrTEC) 10 mg PRN DAILY PRN PO ALLERGIES; Start 06/24/17 at 09: 00 Fish Oil (Fish Oil) 1,000 mg DAILY PO Last administered on 06/24/17 08:24; Start 06/24/17 at 09:00 Pantoprazole Sodium (Protonix) 40 mg DAILYAC PO Last administered on 06/24/17 08:25; Start 06/24/17 at 07:30 Paroxetine HCl (Paxil) 20 mg DAILY PO Last administered on 06/24/17 08:25; Start 06/24/17 at 09:00 Artificial Tears (Artificial Tears) 1 drop DAILY OU Last administered on 08:24; Start 06/24/17 at 09:00 Hydroxychloroquine Sulfate (Plaquenil) 200 mg DAILY08 PO Last administered on 08:24; Start 06/24/17 at 09:00 Ferrous Sulfate (Feosol) 325 mg DAILYWBKFT PO Last administered on 06/24/17 08 :25; Start 06/24/17 at 08:00 Multivitamins/ Minerals (I-Cristiano) 1 tab BID PO Last administered on 06/24/17 08 :25; Start 06/24/17 at 09:00 Methotrexate (Rheumatrex) 17.5 mg We@0900 PO ; Start 06/26/17 at 09:00 Warfarin Sodium (Coumadin Per Pharmacy) 1 each PRN DAILY PRN MC SEE COMMENTS Last administered on 06/24/17 09:47; Start 06/23/17 at 21:00 Calcium Gluconate (Calcium Gluconate) 1,000 mg 1X ONCE IVP Last administered on 06/23/17 21:42; Start 06/23/17 at 21:30; Stop 06/23/17 at 21:31; Status DC Dextrose (Dextrose 50%-Water Syringe) 25 gm 1X ONCE IV Last administered on 22:00; Start 06/23/17 at 21:30; Stop 06/23/17 at 21:31; Status DC Insulin Human Regular (NovoLIN R VIAL) 10 unit 1X ONCE IV Last administered on 06/23/17 21:58; Start 06/23/17 at 21:30; Stop 06/23/17 at 21:31; Status DC Sodium Bicarbonate 50 meq 1X ONCE IV Last administered on 06/23/17 21:49; Start 06/23/17 at 21:45; Stop 06/23/17 at 21:46; Status DC Sodium Bicarbonate 150 meq/Dextrose 1,150 ml @ 100 mls/hr [id number] IV Last administered on 06/23/17 22:39; Start 06/23/17 at 22:30; Stop 06/24/17 at 11:09 ; Status DC Sodium Polystyrene Sulfonate (Kayexalate) 30 gm 1X ONCE PO Last administered on 06/23/17 22:37; Start 06/23/17 at 22:30; Stop 06/23/17 at 22:31; Status DC Sodium Polystyrene Sulfonate (Kayexalate) 15 gm 1X PRN PRN PO K+ >6 4 HOURS AFTER INITIAL DOSE; Start 06/23/17 at 22:45 Fentanyl Citrate (Fentanyl 2ml Vial) 50 mcg PRN Q2HR PRN IV PAIN; Start at 23:30; Stop 06/24/17 at 23:29 Acetaminophen (Tylenol) 650 mg PRN Q4HRS PRN PO FEVER; Start 06/23/17 at 23:30 ; Stop 06/24/17 at 23:29 Levothyroxine Sodium (Synthroid) 100 mcg DAILY08 PO Last administered on 08:25; Start 06/24/17 at 08:00 Phytonadione (Mephyton) 2.5 mg 1X ONCE PO Last administered on 06/24/17 06:06 ; Start 06/24/17 at 06:00; Stop 06/24/17 at 06:01; Status DC Potassium Chloride (Klor-Con) 40 meq 1X ONCE PO Last administered on 06:06; Start 06/24/17 at 06:00; Stop 06/24/17 at 06:01; Status DC Potassium Chloride (Klor-Con) 40 meq 1X ONCE PO Last administered on 09:43; Start 06/24/17 at 09:45; Stop 06/24/17 at 09:46; Status DC Potassium Chloride (Klor-Con) 40 meq 1X ONCE PO Last administered on 15:31; Start 06/24/17 at 14:00; Stop 06/24/17 at 14:01; Status DC Warfarin Sodium (Coumadin - No Dose Today) 1 each 1X WARF ONCE MC Last administered on 06/24/17 10:19; Start 06/24/17 at 16:00; Stop 06/24/17 at 16:01 ; Status DC Magnesium Sulfate/ Dextrose 50 ml @ 25 mls/hr PRN DAILY PRN IV for Mag < 1.7 on am labs; Start 06/24/17 at 11:00 Potassium Chloride 40 meq/ Sodium Chloride 1,020 ml @ 75 mls/hr [id number] IV Last administered on 06/24/17 12:00; Start 06/24/17 at 12:00; Stop 06/25/17 at 15:11 Active Scripts Active Reported Methotrexate (Methotrexate Sodium) 2.5 Mg Tablet 7 Tab PO SATURDAY [hydroxyl-chloroquine] 200 Mg PO DAILY08 Calcium + Vitamin D Tablet (Calcium Carbonate/Vitamin D3) 1 Each Tablet 1 Each PO BID Furosemide 80 Mg Tablet 1 Tab PO BID Claritin (Loratadine) 10 Mg Tablet 1 Tab PO DAILY PRN Coumadin (Warfarin Sodium) 6 Mg Tablet 1.5 Tab PO FR,MO Coumadin (Warfarin Sodium) 6 Mg Tablet 6 Mg PO ,,,SA,DUNCAN Klor-Con M20 (Potassium Chloride) 20 Meq Tab.er.prt 40 Meq PO QID Acetaminophen 500 Mg Tablet 1 Tab PO PRN Q6HRS PRN Mucinex Dm Er 600-30 Mg Tablet (Guaifenesin/Dextromethorphan) 1 Each Tab.er.12h 1 Tab PO PRN Q12HRS Trazodone Hcl 50 Mg Tablet 25 Mg PO HS Propafenone Hcl 150 Mg Tablet 150 Mg PO BID Systane 0.3-0.4% Eye Drops (Propylene Glycol/Peg 400/Pf) 1 Each Droperette 1 Each OP DAILY Xanax (Alprazolam) 0.25 Mg Tablet 1 Tab PO PRN BID PRN Biotin 1 Mg Capsule 1,000 Mg PO BID [lutein] 1 Tab BID [Iron ] 1 Tab DAILY Aldactone (Spironolactone) 25 Mg Tablet 1 Tab PO BID Omeprazole 40 Mg Capsule.dr 40 Mg PO DAILY Tramadol Hcl 50 Mg Tablet 50 Mg PO PRN Q6HRS PRN Fish Oil 1,000 Mg Softgel ([place]-3 Fatty Acids/Fish Oil) 1 Each Capsule 1 Each PO DAILY Allopurinol 100 Mg Tablet 100 Mg PO DAILY Paxil (Paroxetine Hcl) 40 Mg Tablet 20 Mg PO DAILY Levothyroxine Sodium 100 Mcg Tablet 100 Mcg PO DAILY Allergies Allergies: Coded Allergies: adhesive (Verified Allergy, Intermediate, "Breaks out", 04/02/16) Pt states, "tape and band-aids." albuterol (Verified Allergy, Intermediate, "CAN'T BREATHE", 04/02/16) codeine (Verified Allergy, Intermediate, "Breaks out.", 04/02/16) oxycodone (Verified Allergy, Intermediate, Rash, 04/02/16) duloxetine (Verified Adverse Reaction, Intermediate, edema, 04/02/16) pregabalin (Verified Adverse Reaction, Intermediate, edema, 04/02/16) Physical Exam General: Alert, Oriented X3, Cooperative, moderate distress HEENT: PERRLA Lungs: Clear to auscultation Heart: Regular rate, Normal S1, Normal S2, Other (II/ sytolic murmur, II/ diastolic murmur) Abdomen: Normal bowel sounds, Soft, No tenderness Extremities: No edema Psych/Mental Status: Mental status NL Vitals VITALS Vital Signs Date Time Temp Pulse Resp B/P (MAP) Pulse Ox O2 Delivery O2 Flow Rate FiO2 06/24/17 08:25 70 105/66 06/24/17 07:12 98 Room Air 06/24/17 06:12 20 06/24/17 05:00 98.0 98.0 Labs Labs Laboratory Tests Test 06/23/17 20:50 06/23/17 21:08 06/23/17 23:56 06/24/17 03:05 White Blood Count 13.7 x10^3/uL (4.0-11.0) 9.3 x10^3/uL (4.0-11.0) Red Blood Count 4.21 x10^6/uL (3.50-5.40) 3.94 x10^6/uL (3.50-5.40) Hemoglobin 14.7 g/dL (12.0-15.5) 13.8 g/dL (12.0-15.5) Hematocrit 43.4 % (36.0-47.0) 40.4 % (36.0-47.0) Mean Corpuscular Volume 103 fL (79-100) 103 fL (79-100) Mean Corpuscular Hemoglobin 35 pg (25-35) 35 pg (25-35) Mean Corpuscular Hemoglobin Concent 34 g/dL (31-37) 34 g/dL (31-37) Red Cell Distribution Width 15.5 % (11.5-14.5) 16.4 % (11.5-14.5) Platelet Count 248 x10^3/uL (140-400) 199 x10^3/uL (140-400) Neutrophils (%) (Auto) 87 % (31-73) 82 % (31-73) Lymphocytes (%) (Auto) 9 % (24-48) 13 % (24-48) Monocytes (%) (Auto) 4 % (0-9) 4 % (0-9) Eosinophils (%) (Auto) 0 % (0-3) 0 % (0-3) Basophils (%) (Auto) 0 % (0-3) 0 % (0-3) Neutrophils # (Auto) 11.9 x10^3uL (1.8-7.7) 7.7 x10^3uL (1.8-7.7) Lymphocytes # (Auto) 1.2 x10^3/uL (1.0-4.8) 1.2 x10^3/uL (1.0-4.8) Monocytes # (Auto) 0.5 x10^3/uL (0.0-1.1) 0.4 x10^3/uL (0.0-1.1) Eosinophils # (Auto) 0.0 x10^3/uL (0.0-0.7) 0.0 x10^3/uL (0.0-0.7) Basophils # (Auto) 0.0 x10^3/uL (0.0-0.2) 0.0 x10^3/uL (0.0-0.2) Segmented Neutrophils % 87 % (35-66) Band Neutrophils % 3 % (0-9) Lymphocytes % 5 % (24-48) Monocytes % 5 % (0-10) Toxic Granulation Mod Toxic Vacuolation Mod Platelet Estimate Adequate (ADEQUATE) Prothrombin Time 45.9 SEC (11.7-14.0) 51.4 SEC (11.7-14.0) Prothromb Time International Ratio 5.4 (0.8-1.1) 6.2 (0.8-1.1) Activated Partial Thromboplast Time 43 SEC (24-38) Sodium Level 126 mmol/L (136-145) 134 mmol/L (136-145) Potassium Level 6.5 mmol/L (3.5-5.1) 2.5 mmol/L (3.5-5.1) Chloride Level 92 mmol/L (98-107) 91 mmol/L (98-107) Carbon Dioxide Level 24 mmol/L (21-32) 37 mmol/L (21-32) Anion Gap 10 (6-14) 6 (6-14) Blood Urea Nitrogen 99 mg/dL (7-20) 84 mg/dL (7-20) Creatinine 1.8 mg/dL (0.6-1.0) 1.6 mg/dL (0.6-1.0) Estimated GFR (Cockcroft-Gault) 27.4 31.3 BUN/Creatinine Ratio 55 (6-20) 53 (6-20) Glucose Level 83 mg/dL (70-99) 147 mg/dL (70-99) Lactic Acid Level 1.0 mmol/L (0.4-2.0) Calcium Level 9.4 mg/dL (8.5-10.1) 8.7 mg/dL (8.5-10.1) Phosphorus Level 4.0 mg/dL (2.6-4.7) 4.4 mg/dL (2.6-4.7) Total Bilirubin 0.4 mg/dL (0.2-1.0) 0.5 mg/dL (0.2-1.0) Aspartate Amino Transf (AST/SGOT) 37 U/L (15-37) 31 U/L (15-37) Alanine Aminotransferase (ALT/SGPT) 29 U/L (14-59) 28 U/L (14-59) Alkaline Phosphatase 69 U/L (46-116) 61 U/L (46-116) Troponin I Quantitative 0.173 ng/mL (0.000-0.055) 0.154 ng/mL (0.000-0.055) OS-Nkf-X-Type Natriuretic Peptide 9161 pg/mL (0-449) Total Protein 7.4 g/dL (6.4-8.2) 5.9 g/dL (6.4-8.2) Albumin 3.6 g/dL (3.4-5.0) 3.2 g/dL (3.4-5.0) Albumin/Globulin Ratio 0.9 (1.0-1.7) 1.2 (1.0-1.7) Lipase 342 U/L (73-393) Urine Collection Type Unknown Urine Color Yellow Urine Clarity Clear Urine pH 6.5 Urine Specific [place] 1.010 Urine Protein Negative mg/dL (NEG-TRACE) Urine Glucose (UA) Negative mg/dL (NEG) Urine Ketones (Stick) Negative mg/dL (NEG) Urine Blood Trace (NEG) Urine Nitrite Negative (NEG) Urine Bilirubin Negative (NEG) Urine Urobilinogen Dipstick 0.2 mg/dL (0.2 mg/dL) Urine Leukocyte Esterase Trace (NEG) Urine RBC Occ /HPF (0-2) Urine WBC Rare /HPF (0-4) Urine Squamous Epithelial Cells Occ /LPF Urine Bacteria Few /HPF (0-FEW) Urine Hyaline Casts Occasional /HPF Urine Mucus Slight /LPF Nasal Screen MRSA (PCR) Negative (Negative) Test 06/24/17 09:05 Potassium Level 2.6 mmol/L (3.5-5.1) Troponin I Quantitative 0.188 ng/mL (0.000-0.055) Laboratory Tests Test 06/23/17 20:50 06/23/17 21:08 06/23/17 23:56 06/24/17 03:05 White Blood Count 13.7 x10^3/uL (4.0-11.0) 9.3 x10^3/uL (4.0-11.0) Red Blood Count 4.21 x10^6/uL (3.50-5.40) 3.94 x10^6/uL (3.50-5.40) Hemoglobin 14.7 g/dL (12.0-15.5) 13.8 g/dL (12.0-15.5) Hematocrit 43.4 % (36.0-47.0) 40.4 % (36.0-47.0) Mean Corpuscular Volume 103 fL (79-100) 103 fL (79-100) Mean Corpuscular Hemoglobin 35 pg (25-35) 35 pg (25-35) Mean Corpuscular Hemoglobin Concent 34 g/dL (31-37) 34 g/dL (31-37) Red Cell Distribution Width 15.5 % (11.5-14.5) 16.4 % (11.5-14.5) Platelet Count 248 x10^3/uL (140-400) 199 x10^3/uL (140-400) Neutrophils (%) (Auto) 87 % (31-73) 82 % (31-73) Lymphocytes (%) (Auto) 9 % (24-48) 13 % (24-48) Monocytes (%) (Auto) 4 % (0-9) 4 % (0-9) Eosinophils (%) (Auto) 0 % (0-3) 0 % (0-3) Basophils (%) (Auto) 0 % (0-3) 0 % (0-3) Neutrophils # (Auto) 11.9 x10^3uL (1.8-7.7) 7.7 x10^3uL (1.8-7.7) Lymphocytes # (Auto) 1.2 x10^3/uL (1.0-4.8) 1.2 x10^3/uL (1.0-4.8) Monocytes # (Auto) 0.5 x10^3/uL (0.0-1.1) 0.4 x10^3/uL (0.0-1.1) Eosinophils # (Auto) 0.0 x10^3/uL (0.0-0.7) 0.0 x10^3/uL (0.0-0.7) Basophils # (Auto) 0.0 x10^3/uL (0.0-0.2) 0.0 x10^3/uL (0.0-0.2) Segmented Neutrophils % 87 % (35-66) Band Neutrophils % 3 % (0-9) Lymphocytes % 5 % (24-48) Monocytes % 5 % (0-10) Toxic Granulation Mod Toxic Vacuolation Mod Platelet Estimate Adequate (ADEQUATE) Prothrombin Time 45.9 SEC (11.7-14.0) 51.4 SEC (11.7-14.0) Prothromb Time International Ratio 5.4 (0.8-1.1) 6.2 (0.8-1.1) Activated Partial Thromboplast Time 43 SEC (24-38) Sodium Level 126 mmol/L (136-145) 134 mmol/L (136-145) Potassium Level 6.5 mmol/L (3.5-5.1) 2.5 mmol/L (3.5-5.1) Chloride Level 92 mmol/L (98-107) 91 mmol/L (98-107) Carbon Dioxide Level 24 mmol/L (21-32) 37 mmol/L (21-32) Anion Gap 10 (6-14) 6 (6-14) Blood Urea Nitrogen 99 mg/dL (7-20) 84 mg/dL (7-20) Creatinine 1.8 mg/dL (0.6-1.0) 1.6 mg/dL (0.6-1.0) Estimated GFR (Cockcroft-Gault) 27.4 31.3 BUN/Creatinine Ratio 55 (6-20) 53 (6-20) Glucose Level 83 mg/dL (70-99) 147 mg/dL (70-99) Lactic Acid Level 1.0 mmol/L (0.4-2.0) Calcium Level 9.4 mg/dL (8.5-10.1) 8.7 mg/dL (8.5-10.1) Phosphorus Level 4.0 mg/dL (2.6-4.7) 4.4 mg/dL (2.6-4.7) Total Bilirubin 0.4 mg/dL (0.2-1.0) 0.5 mg/dL (0.2-1.0) Aspartate Amino Transf (AST/SGOT) 37 U/L (15-37) 31 U/L (15-37) Alanine Aminotransferase (ALT/SGPT) 29 U/L (14-59) 28 U/L (14-59) Alkaline Phosphatase 69 U/L (46-116) 61 U/L (46-116) Troponin I Quantitative 0.173 ng/mL (0.000-0.055) 0.154 ng/mL (0.000-0.055) IS-Oan-R-Type Natriuretic Peptide 9161 pg/mL (0-449) Total Protein 7.4 g/dL (6.4-8.2) 5.9 g/dL (6.4-8.2) Albumin 3.6 g/dL (3.4-5.0) 3.2 g/dL (3.4-5.0) Albumin/Globulin Ratio 0.9 (1.0-1.7) 1.2 (1.0-1.7) Lipase 342 U/L (73-393) Urine Collection Type Unknown Urine Color Yellow Urine Clarity Clear Urine pH 6.5 Urine Specific [place] 1.010 Urine Protein Negative mg/dL (NEG-TRACE) Urine Glucose (UA) Negative mg/dL (NEG) Urine Ketones (Stick) Negative mg/dL (NEG) Urine Blood Trace (NEG) Urine Nitrite Negative (NEG) Urine Bilirubin Negative (NEG) Urine Urobilinogen Dipstick 0.2 mg/dL (0.2 mg/dL) Urine Leukocyte Esterase Trace (NEG) Urine RBC Occ /HPF (0-2) Urine WBC Rare /HPF (0-4) Urine Squamous Epithelial Cells Occ /LPF Urine Bacteria Few /HPF (0-FEW) Urine Hyaline Casts Occasional /HPF Urine Mucus Slight /LPF Nasal Screen MRSA (PCR) Negative (Negative) Test 06/24/17 09:05 Potassium Level 2.6 mmol/L (3.5-5.1) Troponin I Quantitative 0.188 ng/mL (0.000-0.055) Assessment/Plan Assessment/Plan Patient with a coagulopathy and electrolyte imbalance. She is in need of IV fluids, FFP's and K+. She has no IV access Triple Lumen central line was inserted with a posterior internal jugular approach under sterile technique. Will get an echocardiogram and follow labs closely. Thank you very much CJ DIAL MD Jun 24, 2017 16:53
[2017-06-24 19:04] LABS: CALCIUM 8.6 mg/dL (8.5-10.1); CREATININE 1.6 mg/dL (0.6-1.0); GFR 31.3
[2017-06-24 19:10] LABS: POTASSIUM 2.4 mmol/L (3.5-5.1)
[2017-06-24] MEDS: POTASSIUM CHLORIDE 20MEQ 50 ML IV SCH (20:22)
--- NOTE | 2017-06-24 23:16 | CONS ---
DATE OF CONSULTATION: PRIMARY PHYSICIAN: Dr. Elias. REASON FOR CONSULTATION: Potassium abnormalities. HISTORY OF PRESENT ILLNESS: The patient is a 76-year-old female with known underlying CKD. She is followed by Dr. Cohen for the same. She claims her last GFR was 31. She has been on Lasix 80 mg b.i.d. and also on potassium supplements as well as on Aldactone. She is felt to have underlying CHF and/or valvular heart disease. In this setting, she was noted to have developed significant generalized weakness. She cannot tell me when her potassium dose was last changed. She presented to the ER with potassium of 6.5, BUN of 99 and creatinine of 1.8. She thinks she was not urinating a whole lot of late. She continues to feel somewhat weak. Her blood pressures are noted to be marginal currently. On ____ of her potassium levels she was placed on IV fluids with bicarbonate and treated with temporizing measures, her urine output has improved and potassium has dropped now on to the lower side at 2.5 and a recheck at 2.6. Potassium supplements are being administered. IV fluids will be changed. For rest of the details, please see electronic renal consult note. MANISH YUSUF MD DR: UNIQUE/yo JOB#: [id number] / [id number]
[2017-06-25] VITALS (16 sets, daily range): BP systolic 86–98; BP diastolic 51–60
[2017-06-25] MEDS: traMADol 50 MG TABLET PO PRN ×2 (00:03→15:58)
[2017-06-25] MEDS: POTASSIUM CHLORIDE 20MEQ 50 ML IV SCH ×5 (00:04→06:00)
[2017-06-25] MEDS: ACETAMINOPHEN 500 MG TABLET PO PRN ×3 (02:13→19:29)
[2017-06-25] MEDS: POTASSIUM CHLORIDE 40 MEQ in IV NORMAL SALINE 1000ML BAG 1,000 ML IV SCH (03:22)
[2017-06-25 06:46] LABS: BASO % 0 % (0-3); EOS % 0 % (0-3); HEMATOCRIT 31.1 % (36.0-47.0); HEMOGLOBIN 10.6 g/dL (12.0-15.5); LYMPH % 14 % (24-48); MEAN CORPUSCULAR HEMOGLOBIN 36 pg (25-35); MEAN CORPUSCULAR HGB CONC 34 g/dL (31-37); MEAN CORPUSCULAR VOLUME 104 fL (79-100); MONO % 6 % (0-9); NEUT % 80 % (31-73); PLATELET COUNT 141 x10^3/uL (140-400); RED BLOOD COUNT 2.98 x10^6/uL (3.50-5.40); WHITE BLOOD COUNT 7.2 x10^3/uL (4.0-11.0)
[2017-06-25 06:55] LABS: INR 1.3 (0.8-1.1); PROTHROMBIN TIME PATIENT 15.2 SEC (11.7-14.0)
[2017-06-25 06:57] LABS: ALBUMIN 2.9 g/dL (3.4-5.0); CALCIUM 8.1 mg/dL (8.5-10.1); CREATININE 1.2 mg/dL (0.6-1.0); GFR 43.7; MAGNESIUM 1.8 mg/dL (1.8-2.4); PHOSPHORUS 2.7 mg/dL (2.6-4.7); POTASSIUM 3.8 mmol/L (3.5-5.1); TOTAL BILIRUBIN 0.9 mg/dL (0.2-1.0); TOTAL PROTEIN 5.9 g/dL (6.4-8.2)
--- NOTE | 2017-06-25 08:44 | PDOC ---
SUBJECTIVE ROS AL/ k imbalance DOing and feeling much better today CVS: no Orthopnea, no CP RESP: no SOB, no WALDROP GI: n Nausea, no Vomiting : no Dysuria, no Urgency OBJECTIVE Vital Signs Vital Signs Date Time Temp Pulse Resp B/P (MAP) Pulse Ox O2 Delivery O2 Flow Rate FiO2 06/25/17 03:06 98.5 75 24 92/56 98.5 06/25/17 03:00 96 Room Air I & 0 Intake and Output 06/25/17 06:59 Intake Total 1392 ml Output Total 1750 ml Balance -358 ml Intake Oral 720 ml Blood Product IV Normal Saline Flush 672 ml Output Urine Total 1750 ml # Voids 3 PHYSICAL EXAM Physical Exam General Appearance: Awake Alert Oriented x 3 In no Distress Eyes: VIsion Unchanged Conjunctiva Normal EN: No EN Drainage Mucous Memb. moist Neck: no JVD + JVP Supple no Thyromegaly CVS: S1 S2 + Murmur No Gallop No Rub no Edema Resp: no Rales no Rhonchi no Acc. Muscle use GI: BS +ve NO Bruit Non Tender Non Distended : no CVA tenderness; no Suprapubic Tenderness Assessment & Plan HypoKalemia - better after replacement as ordered CKD III: Current FLuid and E-lyte status does not necessitate emergent need for Dialysis. Will re-evaluate for Dialysis in am h/o HTN: (currently running marginally low) Current BP meds reviewed. See orders for changes. Hold BP meds for lowish BP ? CHF + VHDz - repeat ECHO looks better today Vol depletion - better with IVF as ordered; Diuretic regimen may need to be revisited AL (VMN) - better after IVF as ordered. - D/c IVF after this liter Discussed Plan of Care and prognosis etc. at length with pt COMMENT/RELEVANT DATA Meds Current Medications Medications (Trade) Dose Ordered Sig/Jose Start Time Stop Time Status Last Admin Dose Admin Acetaminophen (Tylenol) 650 mg PRN Q4HRS PRN 06/23/17 23:30 06/24/17 23:29 DC 06/24/17 20:27 650 MG Allopurinol (Zyloprim) 100 mg DAILY 06/24/17 09:00 06/24/17 08:25 100 MG Alprazolam (Xanax) 0.25 mg PRN BID PRN 06/23/17 20:45 Artificial Tears (Artificial Tears) 1 drop DAILY 06/24/17 09:00 06/24/17 08:24 1 DROP Calcium Gluconate (Calcium Gluconate) 1,000 mg 1X ONCE 06/23/17 21:30 06/23/17 21:31 DC 06/23/17 21:42 1,000 MG Calcium/Vitamin D (Oscal D 500mg/ 200uts) 1 tab [id number] 06/24/17 09:00 06/24/17 18:20 1 TAB Cetirizine HCl (ZyrTEC) 10 mg PRN DAILY PRN 06/24/17 09:00 Dextrose (Dextrose 50%-Water Syringe) 25 gm 1X ONCE 06/23/17 21:30 06/23/17 21:31 DC 06/23/17 22:00 25 GM Fentanyl Citrate (Fentanyl 2ml Vial) 50 mcg PRN Q2HR PRN 06/23/17 23:30 06/24/17 23:29 DC Ferrous Sulfate (Feosol) 325 mg [id number] 06/24/17 08:00 06/24/17 08:25 325 MG Fish Oil (Fish Oil) 1,000 mg DAILY 06/24/17 09:00 06/24/17 08:24 1,000 MG Furosemide (Lasix) 80 mg [id number] 06/24/17 09:00 06/24/17 11:09 DC 06/24/17 08:25 80 MG Guaifenesin (MUCINEX ER with DM) 1 tab PRN Q12HRS PRN 06/23/17 20:45 Hydroxychloroquine Sulfate (Plaquenil) 200 mg DAILY08 06/24/17 09:00 06/24/17 08:24 200 MG Insulin Human Regular (NovoLIN R VIAL) 10 unit 1X ONCE 06/23/17 21:30 06/23/17 21:31 DC 06/23/17 21:58 10 UNIT Levothyroxine Sodium (Synthroid) 100 mcg DAILY08 06/24/17 08:00 06/24/17 08:25 100 MCG Magnesium Sulfate/ Dextrose 50 ml @ 25 mls/hr PRN DAILY PRN 06/24/17 11:00 Methotrexate (Rheumatrex) 17.5 mg We@0900 06/26/17 09:00 Multivitamins/ Minerals (I-Cristiano) 1 tab BID 06/24/17 09:00 06/24/17 21:08 1 TAB Non-Formulary Medication 1,000 mg BID 06/23/17 21:00 06/23/17 21:00 DC Pantoprazole Sodium (Protonix) 40 mg DAILYAC 06/24/17 07:30 06/24/17 08:25 40 MG Paroxetine HCl (Paxil) 20 mg DAILY 06/24/17 09:00 06/24/17 08:25 20 MG Phytonadione (Mephyton) 2.5 mg 1X ONCE 06/24/17 06:00 06/24/17 06:01 DC 06/24/17 06:06 2.5 MG Potassium Chloride 40 meq/ Sodium Chloride 1,020 ml @ 75 mls/hr [id number] 06/24/17 12:00 06/25/17 15:11 06/25/17 03:22 75 MLS/HR Potassium Chloride 50 ml @ 25 mls/hr Q2HR 06/24/17 20:00 06/25/17 07:59 DC 06/25/17 03:21 25 MLS/HR Potassium Chloride (Klor-Con) 40 meq 1X ONCE 06/24/17 14:00 06/24/17 14:01 DC 06/24/17 15:31 40 MEQ Propafenone HCl (Rythmol) 150 mg BID 06/23/17 21:00 06/24/17 21:08 150 MG Sodium Bicarbonate 150 meq/Dextrose 1,150 ml @ 100 mls/hr [id number] 06/23/17 22:30 06/24/17 11:09 DC 06/23/17 22:39 100 MLS/HR Sodium Polystyrene Sulfonate (Kayexalate) 15 gm 1X PRN PRN 06/23/17 22:45 Sodium Bicarbonate 50 meq 1X ONCE 06/23/17 21:45 06/23/17 21:46 DC 06/23/17 21:49 50 MEQ Spironolactone (Aldactone) 25 mg [id number] 06/24/17 09:00 06/24/17 15:31 25 MG Tramadol HCl (Ultram) 50 mg PRN Q6HRS PRN 06/23/17 20:45 06/25/17 00:03 50 MG Trazodone HCl (Desyrel) 25 mg HS 06/23/17 21:00 06/24/17 21:08 25 MG Warfarin Sodium (Coumadin - No Dose Today) 1 each 1X WARF ONCE 06/24/17 16:00 06/24/17 16:01 DC 06/24/17 10:19 1 EACH Warfarin Sodium (Coumadin Per Pharmacy) 1 each PRN DAILY PRN 06/23/17 21:00 06/24/17 09:47 1 EACH Warfarin Sodium (Coumadin) 9 mg DAILY16 06/24/17 16:00 06/24/17 16:00 DC Lab Laboratory Tests Test 06/24/17 09:05 06/24/17 18:00 06/25/17 06:15 Potassium Level 2.6 mmol/L (3.5-5.1) 2.4 mmol/L (3.5-5.1) 3.8 mmol/L (3.5-5.1) Troponin I Quantitative 0.188 ng/mL (0.000-0.055) Sodium Level 133 mmol/L (136-145) 137 mmol/L (136-145) Chloride Level 89 mmol/L (98-107) 96 mmol/L (98-107) Carbon Dioxide Level 39 mmol/L (21-32) 37 mmol/L (21-32) Anion Gap 5 (6-14) 4 (6-14) Blood Urea Nitrogen 62 mg/dL (7-20) 48 mg/dL (7-20) Creatinine 1.6 mg/dL (0.6-1.0) 1.2 mg/dL (0.6-1.0) Estimated GFR (Cockcroft-Gault) 31.3 43.7 Glucose Level 231 mg/dL (70-99) 83 mg/dL (70-99) Calcium Level 8.6 mg/dL (8.5-10.1) 8.1 mg/dL (8.5-10.1) White Blood Count 7.2 x10^3/uL (4.0-11.0) Red Blood Count 2.98 x10^6/uL (3.50-5.40) Hemoglobin 10.6 g/dL (12.0-15.5) Hematocrit 31.1 % (36.0-47.0) Mean Corpuscular Volume 104 fL (79-100) Mean Corpuscular Hemoglobin 36 pg (25-35) Mean Corpuscular Hemoglobin Concent 34 g/dL (31-37) Red Cell Distribution Width 16.0 % (11.5-14.5) Platelet Count 141 x10^3/uL (140-400) Neutrophils (%) (Auto) 80 % (31-73) Lymphocytes (%) (Auto) 14 % (24-48) Monocytes (%) (Auto) 6 % (0-9) Eosinophils (%) (Auto) 0 % (0-3) Basophils (%) (Auto) 0 % (0-3) Neutrophils # (Auto) 5.8 x10^3uL (1.8-7.7) Lymphocytes # (Auto) 1.0 x10^3/uL (1.0-4.8) Monocytes # (Auto) 0.4 x10^3/uL (0.0-1.1) Eosinophils # (Auto) 0.0 x10^3/uL (0.0-0.7) Basophils # (Auto) 0.0 x10^3/uL (0.0-0.2) Prothrombin Time 15.2 SEC (11.7-14.0) Prothromb Time International Ratio 1.3 (0.8-1.1) BUN/Creatinine Ratio 40 (6-20) Phosphorus Level 2.7 mg/dL (2.6-4.7) Magnesium Level 1.8 mg/dL (1.8-2.4) Total Bilirubin 0.9 mg/dL (0.2-1.0) Aspartate Amino Transf (AST/SGOT) 30 U/L (15-37) Alanine Aminotransferase (ALT/SGPT) 25 U/L (14-59) Alkaline Phosphatase 56 U/L (46-116) Total Protein 5.9 g/dL (6.4-8.2) Albumin 2.9 g/dL (3.4-5.0) Albumin/Globulin Ratio 1.0 (1.0-1.7) Other IMPRESSION: 1. Interval insertion of a right jugular central venous catheter extending into the right atrium. 2. No other significant change since yesterday's study. ECHO: Left ventricle systolic function is mildly impaired. The Ejection Fraction is 40% The left atrium size is normal. The right atrium size is normal. Doppler and Color Flow revealed moderate aortic regurgitation. The aortic valve is moderately sclerotic. The aortic valve is trileaflet. Doppler and Color Flow revealed mild mitral regurgitation. Mitral annular calcification is mild to moderate. The mitral valve leaflets are thickened and calcified. Doppler and Color Flow revealed mild tricuspid regurgitation. The PA pressure was estimated at 26 mmHg. The pulmonic valve is not well visualized. There is no evidence of significant pericardial effusion. MANISH YUSUF MD Jun 25, 2017 08:44
[2017-06-25] MEDS: PANTOPRAZOLE 40 MG TABLET.DR. PO SCH (08:53)
[2017-06-25] MEDS: PARoxetine 20 MG TABLET PO SCH (08:53)
[2017-06-25] MEDS: LEVOTHYROXINE 100 MCG TABLET PO SCH (08:54)
[2017-06-25] MEDS: OMEGA-3 FATTY ACIDS/FISH OIL 1,000 MG CAPSULE. PO SCH (08:54)
[2017-06-25] MEDS: MULTIVITAMIN I-VITE TABLET. PO SCH ×2 (08:55→21:07)
[2017-06-25] MEDS: PROPAFENONE 150 MG TABLET. PO SCH ×2 (08:55→21:07)
[2017-06-25] MEDS: SPIRONOLACTONE 25 MG TABLET PO SCH ×2 (08:55→16:00)
[2017-06-25] MEDS: FERROUS SULFATE 325 MG TABLET. PO SCH (08:55)
[2017-06-25] MEDS: ALLOPURINOL 100 MG TABLET. PO SCH (08:55)
[2017-06-25] MEDS: CALCIUM CARB/VIT D3 500/200 TABLET. PO SCH ×2 (08:55→17:08)
[2017-06-25] MEDS: POLYVINYL ALCOHOL 1.4% OPHTH SOLUTION 15ML BOTTLE. OU SCH (08:57)
--- NOTE | 2017-06-25 09:48 | PDOC ---
PROGRESS NOTES Chief Complaint Chief Complaint Weakness, shortness breath, nausea, abdominal pain and generalized debility. hyperkalemia, now hypokalemia CHF, chronic systolic failure hyponatremia uremia, acute vasomotor nephropathy History of Present Illness History of Present Illness fluids given, CV to follow, CHF management replace PO K+, recheck PT and OT OOB - looks better advance diet, transfer to any floor, maybe home in AM with home inga Vitals Vitals Vital Signs Date Time Temp Pulse Resp B/P (MAP) Pulse Ox O2 Delivery O2 Flow Rate FiO2 06/25/17 08:55 81 108/63 06/25/17 08:15 Room Air 06/25/17 03:06 98.5 24 98.5 06/25/17 03:00 96 Physical Exam General: Alert, Oriented X3, Cooperative, moderate distress Heart: Regular rate, Normal S1, Normal S2, Other (II/ sytolic murmur, II/ diastolic murmur) Lungs: Clear Abdomen: Normal bowel sounds, Soft, No tenderness Extremities: No edema Skin: No rashes, No significant lesion Labs LABS Laboratory Tests Test 06/24/17 18:00 06/25/17 06:15 Sodium Level 133 mmol/L (136-145) 137 mmol/L (136-145) Potassium Level 2.4 mmol/L (3.5-5.1) 3.8 mmol/L (3.5-5.1) Chloride Level 89 mmol/L (98-107) 96 mmol/L (98-107) Carbon Dioxide Level 39 mmol/L (21-32) 37 mmol/L (21-32) Anion Gap 5 (6-14) 4 (6-14) Blood Urea Nitrogen 62 mg/dL (7-20) 48 mg/dL (7-20) Creatinine 1.6 mg/dL (0.6-1.0) 1.2 mg/dL (0.6-1.0) Estimated GFR (Cockcroft-Gault) 31.3 43.7 Glucose Level 231 mg/dL (70-99) 83 mg/dL (70-99) Calcium Level 8.6 mg/dL (8.5-10.1) 8.1 mg/dL (8.5-10.1) White Blood Count 7.2 x10^3/uL (4.0-11.0) Red Blood Count 2.98 x10^6/uL (3.50-5.40) Hemoglobin 10.6 g/dL (12.0-15.5) Hematocrit 31.1 % (36.0-47.0) Mean Corpuscular Volume 104 fL (79-100) Mean Corpuscular Hemoglobin 36 pg (25-35) Mean Corpuscular Hemoglobin Concent 34 g/dL (31-37) Red Cell Distribution Width 16.0 % (11.5-14.5) Platelet Count 141 x10^3/uL (140-400) Neutrophils (%) (Auto) 80 % (31-73) Lymphocytes (%) (Auto) 14 % (24-48) Monocytes (%) (Auto) 6 % (0-9) Eosinophils (%) (Auto) 0 % (0-3) Basophils (%) (Auto) 0 % (0-3) Neutrophils # (Auto) 5.8 x10^3uL (1.8-7.7) Lymphocytes # (Auto) 1.0 x10^3/uL (1.0-4.8) Monocytes # (Auto) 0.4 x10^3/uL (0.0-1.1) Eosinophils # (Auto) 0.0 x10^3/uL (0.0-0.7) Basophils # (Auto) 0.0 x10^3/uL (0.0-0.2) Prothrombin Time 15.2 SEC (11.7-14.0) Prothromb Time International Ratio 1.3 (0.8-1.1) BUN/Creatinine Ratio 40 (6-20) Phosphorus Level 2.7 mg/dL (2.6-4.7) Magnesium Level 1.8 mg/dL (1.8-2.4) Total Bilirubin 0.9 mg/dL (0.2-1.0) Aspartate Amino Transf (AST/SGOT) 30 U/L (15-37) Alanine Aminotransferase (ALT/SGPT) 25 U/L (14-59) Alkaline Phosphatase 56 U/L (46-116) Total Protein 5.9 g/dL (6.4-8.2) Albumin 2.9 g/dL (3.4-5.0) Albumin/Globulin Ratio 1.0 (1.0-1.7) Review of Systems Review of Systems no n.v.d str better Assessment and Plan Assessmemt and Plan Problems Medical Problems: (1) Hyperkalemia Status: Acute (2) Renal failure Status: Acute Problems: Comment Review of Relevant I have reviewed the following items leila (where applicable) has been applied. Labs Laboratory Tests Test 06/23/17 20:50 06/23/17 21:08 06/23/17 23:56 06/24/17 03:05 White Blood Count 13.7 x10^3/uL (4.0-11.0) 9.3 x10^3/uL (4.0-11.0) Red Blood Count 4.21 x10^6/uL (3.50-5.40) 3.94 x10^6/uL (3.50-5.40) Hemoglobin 14.7 g/dL (12.0-15.5) 13.8 g/dL (12.0-15.5) Hematocrit 43.4 % (36.0-47.0) 40.4 % (36.0-47.0) Mean Corpuscular Volume 103 fL (79-100) 103 fL (79-100) Mean Corpuscular Hemoglobin 35 pg (25-35) 35 pg (25-35) Mean Corpuscular Hemoglobin Concent 34 g/dL (31-37) 34 g/dL (31-37) Red Cell Distribution Width 15.5 % (11.5-14.5) 16.4 % (11.5-14.5) Platelet Count 248 x10^3/uL (140-400) 199 x10^3/uL (140-400) Neutrophils (%) (Auto) 87 % (31-73) 82 % (31-73) Lymphocytes (%) (Auto) 9 % (24-48) 13 % (24-48) Monocytes (%) (Auto) 4 % (0-9) 4 % (0-9) Eosinophils (%) (Auto) 0 % (0-3) 0 % (0-3) Basophils (%) (Auto) 0 % (0-3) 0 % (0-3) Neutrophils # (Auto) 11.9 x10^3uL (1.8-7.7) 7.7 x10^3uL (1.8-7.7) Lymphocytes # (Auto) 1.2 x10^3/uL (1.0-4.8) 1.2 x10^3/uL (1.0-4.8) Monocytes # (Auto) 0.5 x10^3/uL (0.0-1.1) 0.4 x10^3/uL (0.0-1.1) Eosinophils # (Auto) 0.0 x10^3/uL (0.0-0.7) 0.0 x10^3/uL (0.0-0.7) Basophils # (Auto) 0.0 x10^3/uL (0.0-0.2) 0.0 x10^3/uL (0.0-0.2) Segmented Neutrophils % 87 % (35-66) Band Neutrophils % 3 % (0-9) Lymphocytes % 5 % (24-48) Monocytes % 5 % (0-10) Toxic Granulation Mod Toxic Vacuolation Mod Platelet Estimate Adequate (ADEQUATE) Prothrombin Time 45.9 SEC (11.7-14.0) 51.4 SEC (11.7-14.0) Prothromb Time International Ratio 5.4 (0.8-1.1) 6.2 (0.8-1.1) Activated Partial Thromboplast Time 43 SEC (24-38) Sodium Level 126 mmol/L (136-145) 134 mmol/L (136-145) Potassium Level 6.5 mmol/L (3.5-5.1) 2.5 mmol/L (3.5-5.1) Chloride Level 92 mmol/L (98-107) 91 mmol/L (98-107) Carbon Dioxide Level 24 mmol/L (21-32) 37 mmol/L (21-32) Anion Gap 10 (6-14) 6 (6-14) Blood Urea Nitrogen 99 mg/dL (7-20) 84 mg/dL (7-20) Creatinine 1.8 mg/dL (0.6-1.0) 1.6 mg/dL (0.6-1.0) Estimated GFR (Cockcroft-Gault) 27.4 31.3 BUN/Creatinine Ratio 55 (6-20) 53 (6-20) Glucose Level 83 mg/dL (70-99) 147 mg/dL (70-99) Lactic Acid Level 1.0 mmol/L (0.4-2.0) Calcium Level 9.4 mg/dL (8.5-10.1) 8.7 mg/dL (8.5-10.1) Phosphorus Level 4.0 mg/dL (2.6-4.7) 4.4 mg/dL (2.6-4.7) Total Bilirubin 0.4 mg/dL (0.2-1.0) 0.5 mg/dL (0.2-1.0) Aspartate Amino Transf (AST/SGOT) 37 U/L (15-37) 31 U/L (15-37) Alanine Aminotransferase (ALT/SGPT) 29 U/L (14-59) 28 U/L (14-59) Alkaline Phosphatase 69 U/L (46-116) 61 U/L (46-116) Troponin I Quantitative 0.173 ng/mL (0.000-0.055) 0.154 ng/mL (0.000-0.055) OX-Ziy-M-Type Natriuretic Peptide 9161 pg/mL (0-449) Total Protein 7.4 g/dL (6.4-8.2) 5.9 g/dL (6.4-8.2) Albumin 3.6 g/dL (3.4-5.0) 3.2 g/dL (3.4-5.0) Albumin/Globulin Ratio 0.9 (1.0-1.7) 1.2 (1.0-1.7) Lipase 342 U/L (73-393) Urine Collection Type Unknown Urine Color Yellow Urine Clarity Clear Urine pH 6.5 Urine Specific [place] 1.010 Urine Protein Negative mg/dL (NEG-TRACE) Urine Glucose (UA) Negative mg/dL (NEG) Urine Ketones (Stick) Negative mg/dL (NEG) Urine Blood Trace (NEG) Urine Nitrite Negative (NEG) Urine Bilirubin Negative (NEG) Urine Urobilinogen Dipstick 0.2 mg/dL (0.2 mg/dL) Urine Leukocyte Esterase Trace (NEG) Urine RBC Occ /HPF (0-2) Urine WBC Rare /HPF (0-4) Urine Squamous Epithelial Cells Occ /LPF Urine Bacteria Few /HPF (0-FEW) Urine Hyaline Casts Occasional /HPF Urine Mucus Slight /LPF Nasal Screen MRSA (PCR) Negative (Negative) Test 06/24/17 09:05 06/24/17 18:00 06/25/17 06:15 Potassium Level 2.6 mmol/L (3.5-5.1) 2.4 mmol/L (3.5-5.1) 3.8 mmol/L (3.5-5.1) Troponin I Quantitative 0.188 ng/mL (0.000-0.055) Sodium Level 133 mmol/L (136-145) 137 mmol/L (136-145) Chloride Level 89 mmol/L (98-107) 96 mmol/L (98-107) Carbon Dioxide Level 39 mmol/L (21-32) 37 mmol/L (21-32) Anion Gap 5 (6-14) 4 (6-14) Blood Urea Nitrogen 62 mg/dL (7-20) 48 mg/dL (7-20) Creatinine 1.6 mg/dL (0.6-1.0) 1.2 mg/dL (0.6-1.0) Estimated GFR (Cockcroft-Gault) 31.3 43.7 Glucose Level 231 mg/dL (70-99) 83 mg/dL (70-99) Calcium Level 8.6 mg/dL (8.5-10.1) 8.1 mg/dL (8.5-10.1) White Blood Count 7.2 x10^3/uL (4.0-11.0) Red Blood Count 2.98 x10^6/uL (3.50-5.40) Hemoglobin 10.6 g/dL (12.0-15.5) Hematocrit 31.1 % (36.0-47.0) Mean Corpuscular Volume 104 fL (79-100) Mean Corpuscular Hemoglobin 36 pg (25-35) Mean Corpuscular Hemoglobin Concent 34 g/dL (31-37) Red Cell Distribution Width 16.0 % (11.5-14.5) Platelet Count 141 x10^3/uL (140-400) Neutrophils (%) (Auto) 80 % (31-73) Lymphocytes (%) (Auto) 14 % (24-48) Monocytes (%) (Auto) 6 % (0-9) Eosinophils (%) (Auto) 0 % (0-3) Basophils (%) (Auto) 0 % (0-3) Neutrophils # (Auto) 5.8 x10^3uL (1.8-7.7) Lymphocytes # (Auto) 1.0 x10^3/uL (1.0-4.8) Monocytes # (Auto) 0.4 x10^3/uL (0.0-1.1) Eosinophils # (Auto) 0.0 x10^3/uL (0.0-0.7) Basophils # (Auto) 0.0 x10^3/uL (0.0-0.2) Prothrombin Time 15.2 SEC (11.7-14.0) Prothromb Time International Ratio 1.3 (0.8-1.1) BUN/Creatinine Ratio 40 (6-20) Phosphorus Level 2.7 mg/dL (2.6-4.7) Magnesium Level 1.8 mg/dL (1.8-2.4) Total Bilirubin 0.9 mg/dL (0.2-1.0) Aspartate Amino Transf (AST/SGOT) 30 U/L (15-37) Alanine Aminotransferase (ALT/SGPT) 25 U/L (14-59) Alkaline Phosphatase 56 U/L (46-116) Total Protein 5.9 g/dL (6.4-8.2) Albumin 2.9 g/dL (3.4-5.0) Albumin/Globulin Ratio 1.0 (1.0-1.7) Laboratory Tests Test 06/24/17 18:00 06/25/17 06:15 Sodium Level 133 mmol/L (136-145) 137 mmol/L (136-145) Potassium Level 2.4 mmol/L (3.5-5.1) 3.8 mmol/L (3.5-5.1) Chloride Level 89 mmol/L (98-107) 96 mmol/L (98-107) Carbon Dioxide Level 39 mmol/L (21-32) 37 mmol/L (21-32) Anion Gap 5 (6-14) 4 (6-14) Blood Urea Nitrogen 62 mg/dL (7-20) 48 mg/dL (7-20) Creatinine 1.6 mg/dL (0.6-1.0) 1.2 mg/dL (0.6-1.0) Estimated GFR (Cockcroft-Gault) 31.3 43.7 Glucose Level 231 mg/dL (70-99) 83 mg/dL (70-99) Calcium Level 8.6 mg/dL (8.5-10.1) 8.1 mg/dL (8.5-10.1) White Blood Count 7.2 x10^3/uL (4.0-11.0) Red Blood Count 2.98 x10^6/uL (3.50-5.40) Hemoglobin 10.6 g/dL (12.0-15.5) Hematocrit 31.1 % (36.0-47.0) Mean Corpuscular Volume 104 fL (79-100) Mean Corpuscular Hemoglobin 36 pg (25-35) Mean Corpuscular Hemoglobin Concent 34 g/dL (31-37) Red Cell Distribution Width 16.0 % (11.5-14.5) Platelet Count 141 x10^3/uL (140-400) Neutrophils (%) (Auto) 80 % (31-73) Lymphocytes (%) (Auto) 14 % (24-48) Monocytes (%) (Auto) 6 % (0-9) Eosinophils (%) (Auto) 0 % (0-3) Basophils (%) (Auto) 0 % (0-3) Neutrophils # (Auto) 5.8 x10^3uL (1.8-7.7) Lymphocytes # (Auto) 1.0 x10^3/uL (1.0-4.8) Monocytes # (Auto) 0.4 x10^3/uL (0.0-1.1) Eosinophils # (Auto) 0.0 x10^3/uL (0.0-0.7) Basophils # (Auto) 0.0 x10^3/uL (0.0-0.2) Prothrombin Time 15.2 SEC (11.7-14.0) Prothromb Time International Ratio 1.3 (0.8-1.1) BUN/Creatinine Ratio 40 (6-20) Phosphorus Level 2.7 mg/dL (2.6-4.7) Magnesium Level 1.8 mg/dL (1.8-2.4) Total Bilirubin 0.9 mg/dL (0.2-1.0) Aspartate Amino Transf (AST/SGOT) 30 U/L (15-37) Alanine Aminotransferase (ALT/SGPT) 25 U/L (14-59) Alkaline Phosphatase 56 U/L (46-116) Total Protein 5.9 g/dL (6.4-8.2) Albumin 2.9 g/dL (3.4-5.0) Albumin/Globulin Ratio 1.0 (1.0-1.7) Medications Current Medications Acetaminophen (Tylenol) 500 mg PRN Q6HRS PRN PO MILD PAIN / TEMP Last administered on 06/25/17 02:13; Start 06/23/17 at 20:45 Allopurinol (Zyloprim) 100 mg DAILY PO Last administered on 06/25/17 08:55; Start 06/24/17 at 09:00 Alprazolam (Xanax) 0.25 mg PRN BID PRN PO ANXIETY / AGITATION; Start 06/23/17 at 20:45 Furosemide (Lasix) 80 mg BID94 PO Last administered on 06/24/17 08:25; Start 06/24/17 at 09:00; Stop 06/24/17 at 11:09; Status DC Guaifenesin (MUCINEX ER with DM) 1 tab PRN Q12HRS PRN PO MUCOUS/CONGESTION; Start 06/23/17 at 20:45 Levothyroxine Sodium (Synthroid) 100 mcg DAILY07 PO ; Start 06/24/17 at 07:00; Stop 06/24/17 at 07:00; Status DC Potassium Chloride (Klor-Con) 40 meq QID PO ; Start 06/23/17 at 21:00; Stop at 22:13; Status DC Propafenone HCl (Rythmol) 150 mg BID PO Last administered on 06/25/17 08:55; Start 06/23/17 at 21:00 Spironolactone (Aldactone) 25 mg BID94 PO Last administered on 06/24/17 15:31 ; Start 06/24/17 at 09:00 Tramadol HCl (Ultram) 50 mg PRN Q6HRS PRN PO PAIN Last administered on 00:03; Start 06/23/17 at 20:45 Trazodone HCl (Desyrel) 25 mg HS PO Last administered on 06/24/17 21:08; Start 06/23/17 at 21:00 Warfarin Sodium (Coumadin) 9 mg DAILY16 PO ; Start 06/24/17 at 16:00; Stop 06/24 at 16:00; Status DC Non-Formulary Medication 1,000 mg BID PO ; Start 06/23/17 at 21:00; Stop at 21:00; Status DC Calcium/Vitamin D (Oscal D 500mg/ 200uts) 1 tab BIDAFTMEAL PO Last administered on 06/25/17 08:55; Start 06/24/17 at 09:00 Cetirizine HCl (ZyrTEC) 10 mg PRN DAILY PRN PO ALLERGIES; Start 06/24/17 at 09: 00 Fish Oil (Fish Oil) 1,000 mg DAILY PO Last administered on 06/25/17 08:54; Start 06/24/17 at 09:00 Pantoprazole Sodium (Protonix) 40 mg DAILYAC PO Last administered on 06/25/17 08:53; Start 06/24/17 at 07:30 Paroxetine HCl (Paxil) 20 mg DAILY PO Last administered on 06/25/17 08:53; Start 06/24/17 at 09:00 Artificial Tears (Artificial Tears) 1 drop DAILY OU Last administered on 08:24; Start 06/24/17 at 09:00 Hydroxychloroquine Sulfate (Plaquenil) 200 mg DAILY08 PO Last administered on 08:24; Start 06/24/17 at 09:00 Ferrous Sulfate (Feosol) 325 mg DAILYWBKFT PO Last administered on 06/25/17 08: 55; Start 06/24/17 at 08:00 Multivitamins/ Minerals (I-Cristiano) 1 tab BID PO Last administered on 06/25/17 08: 55; Start 06/24/17 at 09:00 Methotrexate (Rheumatrex) 17.5 mg We@0900 PO ; Start 06/26/17 at 09:00 Warfarin Sodium (Coumadin Per Pharmacy) 1 each PRN DAILY PRN MC SEE COMMENTS Last administered on 06/24/17 09:47; Start 06/23/17 at 21:00 Calcium Gluconate (Calcium Gluconate) 1,000 mg 1X ONCE IVP Last administered on 06/23/17 21:42; Start 06/23/17 at 21:30; Stop 06/23/17 at 21:31; Status DC Dextrose (Dextrose 50%-Water Syringe) 25 gm 1X ONCE IV Last administered on 22:00; Start 06/23/17 at 21:30; Stop 06/23/17 at 21:31; Status DC Insulin Human Regular (NovoLIN R VIAL) 10 unit 1X ONCE IV Last administered on 06/23/17 21:58; Start 06/23/17 at 21:30; Stop 06/23/17 at 21:31; Status DC Sodium Bicarbonate 50 meq 1X ONCE IV Last administered on 06/23/17 21:49; Start 06/23/17 at 21:45; Stop 06/23/17 at 21:46; Status DC Sodium Bicarbonate 150 meq/Dextrose 1,150 ml @ 100 mls/hr [id number] IV Last administered on 06/23/17 22:39; Start 06/23/17 at 22:30; Stop 06/24/17 at 11:09 ; Status DC Sodium Polystyrene Sulfonate (Kayexalate) 30 gm 1X ONCE PO Last administered on 06/23/17 22:37; Start 06/23/17 at 22:30; Stop 06/23/17 at 22:31; Status DC Sodium Polystyrene Sulfonate (Kayexalate) 15 gm 1X PRN PRN PO K+ >6 4 HOURS AFTER INITIAL DOSE; Start 06/23/17 at 22:45; Stop 06/25/17 at 08:47; Status DC Fentanyl Citrate (Fentanyl 2ml Vial) 50 mcg PRN Q2HR PRN IV PAIN; Start at 23:30; Stop 06/24/17 at 23:29; Status DC Acetaminophen (Tylenol) 650 mg PRN Q4HRS PRN PO FEVER Last administered on 06/24 20:27; Start 06/23/17 at 23:30; Stop 06/24/17 at 23:29; Status DC Levothyroxine Sodium (Synthroid) 100 mcg DAILY08 PO Last administered on 08:54; Start 06/24/17 at 08:00 Phytonadione (Mephyton) 2.5 mg 1X ONCE PO Last administered on 06/24/17 06:06 ; Start 06/24/17 at 06:00; Stop 06/24/17 at 06:01; Status DC Potassium Chloride (Klor-Con) 40 meq 1X ONCE PO Last administered on 06:06; Start 06/24/17 at 06:00; Stop 06/24/17 at 06:01; Status DC Potassium Chloride (Klor-Con) 40 meq 1X ONCE PO Last administered on 09:43; Start 06/24/17 at 09:45; Stop 06/24/17 at 09:46; Status DC Potassium Chloride (Klor-Con) 40 meq 1X ONCE PO Last administered on 15:31; Start 06/24/17 at 14:00; Stop 06/24/17 at 14:01; Status DC Warfarin Sodium (Coumadin - No Dose Today) 1 each 1X WARF ONCE MC Last administered on 06/24/17 10:19; Start 06/24/17 at 16:00; Stop 06/24/17 at 16:01 ; Status DC Magnesium Sulfate/ Dextrose 50 ml @ 25 mls/hr PRN DAILY PRN IV for Mag < 1.7 on am labs; Start 06/24/17 at 11:00 Potassium Chloride 40 meq/ Sodium Chloride 1,020 ml @ 75 mls/hr [id number] IV Last administered on 06/25/17 03:22; Start 06/24/17 at 12:00; Stop 06/25/17 at 08 :47; Status DC Potassium Chloride 50 ml @ 25 mls/hr Q2HR IV Last administered on 06/25/17 03: 21; Start 06/24/17 at 20:00; Stop 06/25/17 at 07:59; Status DC Enoxaparin Sodium (Lovenox Per Pharmacy Prophylaxis Dosing) 1 each PRN DAILY PRN MC SEE COMMENTS; Start 06/25/17 at 09:00 Enoxaparin Sodium (Lovenox 30mg Syringe) 30 mg Q24H SQ ; Start 06/25/17 at 09:00 Warfarin Sodium (Coumadin) 6 mg 1X WARF ONCE PO ; Start 06/25/17 at 16:00; Stop 06/25/17 at 16:01 Active Scripts Active Reported Methotrexate (Methotrexate Sodium) 2.5 Mg Tablet 7 Tab PO SATURDAY [hydroxyl-chloroquine] 200 Mg PO DAILY08 Calcium + Vitamin D Tablet (Calcium Carbonate/Vitamin D3) 1 Each Tablet 1 Each PO BID Furosemide 80 Mg Tablet 1 Tab PO BID Claritin (Loratadine) 10 Mg Tablet 1 Tab PO DAILY PRN Coumadin (Warfarin Sodium) 6 Mg Tablet 1.5 Tab PO FR,MO Coumadin (Warfarin Sodium) 6 Mg Tablet 6 Mg PO TU,WE,TH,SA,DUNCAN Klor-Con M20 (Potassium Chloride) 20 Meq Tab.er.prt 40 Meq PO QID Acetaminophen 500 Mg Tablet 1 Tab PO PRN Q6HRS PRN Mucinex Dm Er 600-30 Mg Tablet (Guaifenesin/Dextromethorphan) 1 Each Tab.er.12h 1 Tab PO PRN Q12HRS Trazodone Hcl 50 Mg Tablet 25 Mg PO HS Propafenone Hcl 150 Mg Tablet 150 Mg PO BID Systane 0.3-0.4% Eye Drops (Propylene Glycol/Peg 400/Pf) 1 Each Droperette 1 Each OP DAILY Xanax (Alprazolam) 0.25 Mg Tablet 1 Tab PO PRN BID PRN Biotin 1 Mg Capsule 1,000 Mg PO BID [lutein] 1 Tab BID [Iron ] 1 Tab DAILY Aldactone (Spironolactone) 25 Mg Tablet 1 Tab PO BID Omeprazole 40 Mg Capsule.dr 40 Mg PO DAILY Tramadol Hcl 50 Mg Tablet 50 Mg PO PRN Q6HRS PRN Fish Oil 1,000 Mg Softgel (Browning-3 Fatty Acids/Fish Oil) 1 Each Capsule 1 Each PO DAILY Allopurinol 100 Mg Tablet 100 Mg PO DAILY Paxil (Paroxetine Hcl) 40 Mg Tablet 20 Mg PO DAILY Levothyroxine Sodium 100 Mcg Tablet 100 Mcg PO DAILY Vitals/I & O Vital Sign - Last 24 Hours 06/24/17 06/24/17 06/24/17 06/24/17 11:00 15:00 19:00 20:00 Temp 97.9 98.0 97.9 97.9 98.0 97.9 Pulse 76 62 76 Resp 16 16 16 B/P (MAP) 104/60 (75) 111/61 (78) 108/58 (75) Pulse Ox 98 98 97 O2 Delivery Room Air Room Air Room Air Room Air 06/24/17 06/24/17 06/24/17 06/24/17 20:59 21:08 21:15 21:30 Temp 97.8 97.8 97.6 97.8 97.8 97.6 Pulse 74 75 75 76 Resp 15 30 50 B/P (MAP) 110/63 106/59 106/59 94/62 06/24/17 06/24/17 06/24/17 06/24/17 21:45 22:00 23:00 23:00 Temp 98.4 98.4 98.5 98.4 98.4 98.4 98.5 98.4 Pulse 78 78 76 76 Resp 22 30 20 31 B/P (MAP) 83/51 88/55 90/57 (68) 88/52 Pulse Ox 96 O2 Delivery Room Air 06/24/17 06/24/17 06/25/17 06/25/17 23:30 23:45 00:00 00:03 Temp 98.5 98.5 98.6 98.5 98.5 98.6 Pulse 77 79 79 Resp 30 25 19 30 B/P (MAP) 88/52 95/57 98/57 Pulse Ox 99 O2 Delivery Room Air 06/25/17 06/25/17 06/25/17 06/25/17 00:15 01:03 01:05 01:15 Temp 98.0 98.0 97.6 98.0 98.0 97.6 Pulse 75 80 75 Resp 15 20 25 B/P (MAP) 92/52 90/53 86/51 Pulse Ox 98 O2 Delivery Room Air 06/25/17 06/25/17 06/25/17 06/25/17 01:30 01:45 02:00 02:00 Temp 98.0 97.6 98.2 97.9 98.0 97.6 98.2 97.9 Pulse 74 78 73 78 Resp 22 19 21 21 B/P (MAP) 87/51 88/53 93/58 93/58 06/25/17 06/25/17 06/25/17 06/25/17 02:48 03:00 03:06 08:15 Temp 98.4 98.4 98.5 98.4 98.4 98.5 Pulse 73 74 75 Resp 20 18 24 B/P (MAP) 91/55 92/56 (68) 92/56 Pulse Ox 96 O2 Delivery Room Air Room Air 06/25/17 08:55 Pulse 81 B/P (MAP) 108/63 Intake and Output 06/24/17 06/24/17 06/25/17 15:00 23:00 07:00 Intake Total 336 ml 1056 ml Output Total 1650 ml 100 ml Balance -1314 ml 956 ml Nutrition Consultation Dietary Evaluation: Recommendations by RD: Increase Calorie Intake, Protein supplementation Comments: added boost pudding bid Expected Outcomes/Goals: to meet > 50% est nutr needs Interpretation of weight loss: >5% in 1 month Malnutrition Findings: Body Fat Depletion (Non Severe: Mild Depletion Weight Status: Appropriate SWEETIE SALDAÑA MD Jun 25, 2017 09:48
[2017-06-25] MEDS: ENOXAPARIN 30 MG/0.3 ML SYRINGE. SQ SCH (10:17)
[2017-06-25] MEDS: HYDROXYCHLOROQUINE 200 MG TABLET PO SCH (10:17)
[2017-06-25 12:13] LABS: CREATININE 1.3 mg/dL (0.6-1.0); GFR 39.8; POTASSIUM 3.7 mmol/L (3.5-5.1)
[2017-06-25] MEDS ORDERED: WARFARIN 6 MG TABLET. PO ONE (16:00)
[2017-06-25 18:24] LABS: CALCIUM 7.7 mg/dL (8.5-10.1); CREATININE 2.2 mg/dL (0.6-1.0); GFR 21.7; POTASSIUM 3.4 mmol/L (3.5-5.1)
--- NOTE | 2017-06-25 19:56 | PDOC ---
PROGRESS NOTES Subjective Subjective The patient is feeling better. Her potassium is 3.7. Blood pressure and rhythm are stable. Objective Objective Vital Signs Date Time Temp Pulse Resp B/P (MAP) Pulse Ox O2 Delivery O2 Flow Rate FiO2 06/25/17 19:30 99.0 88 18 97/58 (71) 100 Room Air 99.0 Intake and Output 06/25/17 07:00 Intake Total 2376 ml Output Total 1750 ml Balance 626 ml Intake Oral 720 ml IV Total 984 ml Blood Product IV Normal Saline Flush 672 ml Output Urine Total 1750 ml # Voids 3 Physical Exam Physical Exam No JVD Moving air well No changes in heart sounds Trace edema Assessment Assessment The patient's electrolyte imbalance seems to be improving. I agree with the present fluids. We will continue with the IV fluids for at least 24 hours more but we will leave it up to the ui ux web developer to decide how long. Comment Review of Relevant I have reviewed the following items leila (where applicable) has been applied. Labs Laboratory Tests Test 06/23/17 20:50 06/23/17 21:08 06/23/17 23:56 06/24/17 03:05 White Blood Count 13.7 x10^3/uL (4.0-11.0) 9.3 x10^3/uL (4.0-11.0) Red Blood Count 4.21 x10^6/uL (3.50-5.40) 3.94 x10^6/uL (3.50-5.40) Hemoglobin 14.7 g/dL (12.0-15.5) 13.8 g/dL (12.0-15.5) Hematocrit 43.4 % (36.0-47.0) 40.4 % (36.0-47.0) Mean Corpuscular Volume 103 fL (79-100) 103 fL (79-100) Mean Corpuscular Hemoglobin 35 pg (25-35) 35 pg (25-35) Mean Corpuscular Hemoglobin Concent 34 g/dL (31-37) 34 g/dL (31-37) Red Cell Distribution Width 15.5 % (11.5-14.5) 16.4 % (11.5-14.5) Platelet Count 248 x10^3/uL (140-400) 199 x10^3/uL (140-400) Neutrophils (%) (Auto) 87 % (31-73) 82 % (31-73) Lymphocytes (%) (Auto) 9 % (24-48) 13 % (24-48) Monocytes (%) (Auto) 4 % (0-9) 4 % (0-9) Eosinophils (%) (Auto) 0 % (0-3) 0 % (0-3) Basophils (%) (Auto) 0 % (0-3) 0 % (0-3) Neutrophils # (Auto) 11.9 x10^3uL (1.8-7.7) 7.7 x10^3uL (1.8-7.7) Lymphocytes # (Auto) 1.2 x10^3/uL (1.0-4.8) 1.2 x10^3/uL (1.0-4.8) Monocytes # (Auto) 0.5 x10^3/uL (0.0-1.1) 0.4 x10^3/uL (0.0-1.1) Eosinophils # (Auto) 0.0 x10^3/uL (0.0-0.7) 0.0 x10^3/uL (0.0-0.7) Basophils # (Auto) 0.0 x10^3/uL (0.0-0.2) 0.0 x10^3/uL (0.0-0.2) Segmented Neutrophils % 87 % (35-66) Band Neutrophils % 3 % (0-9) Lymphocytes % 5 % (24-48) Monocytes % 5 % (0-10) Toxic Granulation Mod Toxic Vacuolation Mod Platelet Estimate Adequate (ADEQUATE) Prothrombin Time 45.9 SEC (11.7-14.0) 51.4 SEC (11.7-14.0) Prothromb Time International Ratio 5.4 (0.8-1.1) 6.2 (0.8-1.1) Activated Partial Thromboplast Time 43 SEC (24-38) Sodium Level 126 mmol/L (136-145) 134 mmol/L (136-145) Potassium Level 6.5 mmol/L (3.5-5.1) 2.5 mmol/L (3.5-5.1) Chloride Level 92 mmol/L (98-107) 91 mmol/L (98-107) Carbon Dioxide Level 24 mmol/L (21-32) 37 mmol/L (21-32) Anion Gap 10 (6-14) 6 (6-14) Blood Urea Nitrogen 99 mg/dL (7-20) 84 mg/dL (7-20) Creatinine 1.8 mg/dL (0.6-1.0) 1.6 mg/dL (0.6-1.0) Estimated GFR (Cockcroft-Gault) 27.4 31.3 BUN/Creatinine Ratio 55 (6-20) 53 (6-20) Glucose Level 83 mg/dL (70-99) 147 mg/dL (70-99) Lactic Acid Level 1.0 mmol/L (0.4-2.0) Calcium Level 9.4 mg/dL (8.5-10.1) 8.7 mg/dL (8.5-10.1) Phosphorus Level 4.0 mg/dL (2.6-4.7) 4.4 mg/dL (2.6-4.7) Total Bilirubin 0.4 mg/dL (0.2-1.0) 0.5 mg/dL (0.2-1.0) Aspartate Amino Transf (AST/SGOT) 37 U/L (15-37) 31 U/L (15-37) Alanine Aminotransferase (ALT/SGPT) 29 U/L (14-59) 28 U/L (14-59) Alkaline Phosphatase 69 U/L (46-116) 61 U/L (46-116) Troponin I Quantitative 0.173 ng/mL (0.000-0.055) 0.154 ng/mL (0.000-0.055) HC-Bmr-F-Type Natriuretic Peptide 9161 pg/mL (0-449) Total Protein 7.4 g/dL (6.4-8.2) 5.9 g/dL (6.4-8.2) Albumin 3.6 g/dL (3.4-5.0) 3.2 g/dL (3.4-5.0) Albumin/Globulin Ratio 0.9 (1.0-1.7) 1.2 (1.0-1.7) Lipase 342 U/L (73-393) Urine Collection Type Unknown Urine Color Yellow Urine Clarity Clear Urine pH 6.5 Urine Specific [place] 1.010 Urine Protein Negative mg/dL (NEG-TRACE) Urine Glucose (UA) Negative mg/dL (NEG) Urine Ketones (Stick) Negative mg/dL (NEG) Urine Blood Trace (NEG) Urine Nitrite Negative (NEG) Urine Bilirubin Negative (NEG) Urine Urobilinogen Dipstick 0.2 mg/dL (0.2 mg/dL) Urine Leukocyte Esterase Trace (NEG) Urine RBC Occ /HPF (0-2) Urine WBC Rare /HPF (0-4) Urine Squamous Epithelial Cells Occ /LPF Urine Bacteria Few /HPF (0-FEW) Urine Hyaline Casts Occasional /HPF Urine Mucus Slight /LPF Nasal Screen MRSA (PCR) Negative (Negative) Test 06/24/17 09:05 06/24/17 18:00 06/25/17 06:15 06/25/17 11:50 Potassium Level 2.6 mmol/L (3.5-5.1) 2.4 mmol/L (3.5-5.1) 3.8 mmol/L (3.5-5.1) 3.7 mmol/L (3.5-5.1) Troponin I Quantitative 0.188 ng/mL (0.000-0.055) Sodium Level 133 mmol/L (136-145) 137 mmol/L (136-145) 137 mmol/L (136-145) Chloride Level 89 mmol/L (98-107) 96 mmol/L (98-107) 98 mmol/L (98-107) Carbon Dioxide Level 39 mmol/L (21-32) 37 mmol/L (21-32) 36 mmol/L (21-32) Anion Gap 5 (6-14) 4 (6-14) 3 (6-14) Blood Urea Nitrogen 62 mg/dL (7-20) 48 mg/dL (7-20) 48 mg/dL (7-20) Creatinine 1.6 mg/dL (0.6-1.0) 1.2 mg/dL (0.6-1.0) 1.3 mg/dL (0.6-1.0) Estimated GFR (Cockcroft-Gault) 31.3 43.7 39.8 Glucose Level 231 mg/dL (70-99) 83 mg/dL (70-99) 137 mg/dL (70-99) Calcium Level 8.6 mg/dL (8.5-10.1) 8.1 mg/dL (8.5-10.1) 8.0 mg/dL (8.5-10.1) White Blood Count 7.2 x10^3/uL (4.0-11.0) Red Blood Count 2.98 x10^6/uL (3.50-5.40) Hemoglobin 10.6 g/dL (12.0-15.5) Hematocrit 31.1 % (36.0-47.0) Mean Corpuscular Volume 104 fL (79-100) Mean Corpuscular Hemoglobin 36 pg (25-35) Mean Corpuscular Hemoglobin Concent 34 g/dL (31-37) Red Cell Distribution Width 16.0 % (11.5-14.5) Platelet Count 141 x10^3/uL (140-400) Neutrophils (%) (Auto) 80 % (31-73) Lymphocytes (%) (Auto) 14 % (24-48) Monocytes (%) (Auto) 6 % (0-9) Eosinophils (%) (Auto) 0 % (0-3) Basophils (%) (Auto) 0 % (0-3) Neutrophils # (Auto) 5.8 x10^3uL (1.8-7.7) Lymphocytes # (Auto) 1.0 x10^3/uL (1.0-4.8) Monocytes # (Auto) 0.4 x10^3/uL (0.0-1.1) Eosinophils # (Auto) 0.0 x10^3/uL (0.0-0.7) Basophils # (Auto) 0.0 x10^3/uL (0.0-0.2) Prothrombin Time 15.2 SEC (11.7-14.0) Prothromb Time International Ratio 1.3 (0.8-1.1) BUN/Creatinine Ratio 40 (6-20) Phosphorus Level 2.7 mg/dL (2.6-4.7) Magnesium Level 1.8 mg/dL (1.8-2.4) Total Bilirubin 0.9 mg/dL (0.2-1.0) Aspartate Amino Transf (AST/SGOT) 30 U/L (15-37) Alanine Aminotransferase (ALT/SGPT) 25 U/L (14-59) Alkaline Phosphatase 56 U/L (46-116) Total Protein 5.9 g/dL (6.4-8.2) Albumin 2.9 g/dL (3.4-5.0) Albumin/Globulin Ratio 1.0 (1.0-1.7) Test 06/25/17 18:00 Sodium Level 134 mmol/L (136-145) Potassium Level 3.4 mmol/L (3.5-5.1) Chloride Level 96 mmol/L (98-107) Carbon Dioxide Level 33 mmol/L (21-32) Anion Gap 5 (6-14) Blood Urea Nitrogen 46 mg/dL (7-20) Creatinine 2.2 mg/dL (0.6-1.0) Estimated GFR (Cockcroft-Gault) 21.7 Glucose Level 140 mg/dL (70-99) Calcium Level 7.7 mg/dL (8.5-10.1) Laboratory Tests Test 06/25/17 06:15 06/25/17 11:50 06/25/17 18:00 White Blood Count 7.2 x10^3/uL (4.0-11.0) Red Blood Count 2.98 x10^6/uL (3.50-5.40) Hemoglobin 10.6 g/dL (12.0-15.5) Hematocrit 31.1 % (36.0-47.0) Mean Corpuscular Volume 104 fL (79-100) Mean Corpuscular Hemoglobin 36 pg (25-35) Mean Corpuscular Hemoglobin Concent 34 g/dL (31-37) Red Cell Distribution Width 16.0 % (11.5-14.5) Platelet Count 141 x10^3/uL (140-400) Neutrophils (%) (Auto) 80 % (31-73) Lymphocytes (%) (Auto) 14 % (24-48) Monocytes (%) (Auto) 6 % (0-9) Eosinophils (%) (Auto) 0 % (0-3) Basophils (%) (Auto) 0 % (0-3) Neutrophils # (Auto) 5.8 x10^3uL (1.8-7.7) Lymphocytes # (Auto) 1.0 x10^3/uL (1.0-4.8) Monocytes # (Auto) 0.4 x10^3/uL (0.0-1.1) Eosinophils # (Auto) 0.0 x10^3/uL (0.0-0.7) Basophils # (Auto) 0.0 x10^3/uL (0.0-0.2) Prothrombin Time 15.2 SEC (11.7-14.0) Prothromb Time International Ratio 1.3 (0.8-1.1) Sodium Level 137 mmol/L (136-145) 137 mmol/L (136-145) 134 mmol/L (136-145) Potassium Level 3.8 mmol/L (3.5-5.1) 3.7 mmol/L (3.5-5.1) 3.4 mmol/L (3.5-5.1) Chloride Level 96 mmol/L (98-107) 98 mmol/L (98-107) 96 mmol/L (98-107) Carbon Dioxide Level 37 mmol/L (21-32) 36 mmol/L (21-32) 33 mmol/L (21-32) Anion Gap 4 (6-14) 3 (6-14) 5 (6-14) Blood Urea Nitrogen 48 mg/dL (7-20) 48 mg/dL (7-20) 46 mg/dL (7-20) Creatinine 1.2 mg/dL (0.6-1.0) 1.3 mg/dL (0.6-1.0) 2.2 mg/dL (0.6-1.0) Estimated GFR (Cockcroft-Gault) 43.7 39.8 21.7 BUN/Creatinine Ratio 40 (6-20) Glucose Level 83 mg/dL (70-99) 137 mg/dL (70-99) 140 mg/dL (70-99) Calcium Level 8.1 mg/dL (8.5-10.1) 8.0 mg/dL (8.5-10.1) 7.7 mg/dL (8.5-10.1) Phosphorus Level 2.7 mg/dL (2.6-4.7) Magnesium Level 1.8 mg/dL (1.8-2.4) Total Bilirubin 0.9 mg/dL (0.2-1.0) Aspartate Amino Transf (AST/SGOT) 30 U/L (15-37) Alanine Aminotransferase (ALT/SGPT) 25 U/L (14-59) Alkaline Phosphatase 56 U/L (46-116) Total Protein 5.9 g/dL (6.4-8.2) Albumin 2.9 g/dL (3.4-5.0) Albumin/Globulin Ratio 1.0 (1.0-1.7) Medications Current Medications Acetaminophen (Tylenol) 500 mg PRN Q6HRS PRN PO MILD PAIN / TEMP Last administered on 06/25/17 19:29; Start 06/23/17 at 20:45 Allopurinol (Zyloprim) 100 mg DAILY PO Last administered on 06/25/17 08:55; Start 06/24/17 at 09:00 Alprazolam (Xanax) 0.25 mg PRN BID PRN PO ANXIETY / AGITATION; Start 06/23/17 at 20:45 Furosemide (Lasix) 80 mg BID94 PO Last administered on 06/24/17 08:25; Start 06/24/17 at 09:00; Stop 06/24/17 at 11:09; Status DC Guaifenesin (MUCINEX ER with DM) 1 tab PRN Q12HRS PRN PO MUCOUS/CONGESTION; Start 06/23/17 at 20:45 Levothyroxine Sodium (Synthroid) 100 mcg DAILY07 PO ; Start 06/24/17 at 07:00; Stop 06/24/17 at 07:00; Status DC Potassium Chloride (Klor-Con) 40 meq QID PO ; Start 06/23/17 at 21:00; Stop at 22:13; Status DC Propafenone HCl (Rythmol) 150 mg BID PO Last administered on 06/25/17 08:55; Start 06/23/17 at 21:00 Spironolactone (Aldactone) 25 mg BID94 PO Last administered on 06/24/17 15:31 ; Start 06/24/17 at 09:00 Tramadol HCl (Ultram) 50 mg PRN Q6HRS PRN PO PAIN Last administered on 15:58; Start 06/23/17 at 20:45 Trazodone HCl (Desyrel) 25 mg HS PO Last administered on 06/24/17 21:08; Start 06/23/17 at 21:00 Warfarin Sodium (Coumadin) 9 mg DAILY16 PO ; Start 06/24/17 at 16:00; Stop 06/24 at 16:00; Status DC Non-Formulary Medication 1,000 mg BID PO ; Start 06/23/17 at 21:00; Stop at 21:00; Status DC Calcium/Vitamin D (Oscal D 500mg/ 200uts) 1 tab BIDAFTMEAL PO Last administered on 06/25/17 17:08; Start 06/24/17 at 09:00 Cetirizine HCl (ZyrTEC) 10 mg PRN DAILY PRN PO ALLERGIES; Start 06/24/17 at 09: 00 Fish Oil (Fish Oil) 1,000 mg DAILY PO Last administered on 06/25/17 08:54; Start 06/24/17 at 09:00 Pantoprazole Sodium (Protonix) 40 mg DAILYAC PO Last administered on 06/25/17 08:53; Start 06/24/17 at 07:30 Paroxetine HCl (Paxil) 20 mg DAILY PO Last administered on 06/25/17 08:53; Start 06/24/17 at 09:00 Artificial Tears (Artificial Tears) 1 drop DAILY OU Last administered on 08:24; Start 06/24/17 at 09:00 Hydroxychloroquine Sulfate (Plaquenil) 200 mg DAILY08 PO Last administered on 10:17; Start 06/24/17 at 09:00 Ferrous Sulfate (Feosol) 325 mg DAILYWBKFT PO Last administered on 06/25/17 08: 55; Start 06/24/17 at 08:00 Multivitamins/ Minerals (I-Cristiano) 1 tab BID PO Last administered on 06/25/17 08: 55; Start 06/24/17 at 09:00 Methotrexate (Rheumatrex) 17.5 mg We@0900 PO ; Start 06/26/17 at 09:00 Warfarin Sodium (Coumadin Per Pharmacy) 1 each PRN DAILY PRN MC SEE COMMENTS Last administered on 06/25/17 09:52; Start 06/23/17 at 21:00 Calcium Gluconate (Calcium Gluconate) 1,000 mg 1X ONCE IVP Last administered on 06/23/17 21:42; Start 06/23/17 at 21:30; Stop 06/23/17 at 21:31; Status DC Dextrose (Dextrose 50%-Water Syringe) 25 gm 1X ONCE IV Last administered on 22:00; Start 06/23/17 at 21:30; Stop 06/23/17 at 21:31; Status DC Insulin Human Regular (NovoLIN R VIAL) 10 unit 1X ONCE IV Last administered on 06/23/17 21:58; Start 06/23/17 at 21:30; Stop 06/23/17 at 21:31; Status DC Sodium Bicarbonate 50 meq 1X ONCE IV Last administered on 06/23/17 21:49; Start 06/23/17 at 21:45; Stop 06/23/17 at 21:46; Status DC Sodium Bicarbonate 150 meq/Dextrose 1,150 ml @ 100 mls/hr [id number] IV Last administered on 06/23/17 22:39; Start 06/23/17 at 22:30; Stop 06/24/17 at 11:09 ; Status DC Sodium Polystyrene Sulfonate (Kayexalate) 30 gm 1X ONCE PO Last administered on 06/23/17 22:37; Start 06/23/17 at 22:30; Stop 06/23/17 at 22:31; Status DC Sodium Polystyrene Sulfonate (Kayexalate) 15 gm 1X PRN PRN PO K+ >6 4 HOURS AFTER INITIAL DOSE; Start 06/23/17 at 22:45; Stop 06/25/17 at 08:47; Status DC Fentanyl Citrate (Fentanyl 2ml Vial) 50 mcg PRN Q2HR PRN IV PAIN; Start at 23:30; Stop 06/24/17 at 23:29; Status DC Acetaminophen (Tylenol) 650 mg PRN Q4HRS PRN PO FEVER Last administered on 06/24 20:27; Start 06/23/17 at 23:30; Stop 06/24/17 at 23:29; Status DC Levothyroxine Sodium (Synthroid) 100 mcg DAILY08 PO Last administered on 08:54; Start 06/24/17 at 08:00 Phytonadione (Mephyton) 2.5 mg 1X ONCE PO Last administered on 06/24/17 06:06 ; Start 06/24/17 at 06:00; Stop 06/24/17 at 06:01; Status DC Potassium Chloride (Klor-Con) 40 meq 1X ONCE PO Last administered on 06:06; Start 06/24/17 at 06:00; Stop 06/24/17 at 06:01; Status DC Potassium Chloride (Klor-Con) 40 meq 1X ONCE PO Last administered on 09:43; Start 06/24/17 at 09:45; Stop 06/24/17 at 09:46; Status DC Potassium Chloride (Klor-Con) 40 meq 1X ONCE PO Last administered on 15:31; Start 06/24/17 at 14:00; Stop 06/24/17 at 14:01; Status DC Warfarin Sodium (Coumadin - No Dose Today) 1 each 1X WARF ONCE MC Last administered on 06/24/17 10:19; Start 06/24/17 at 16:00; Stop 06/24/17 at 16:01 ; Status DC Magnesium Sulfate/ Dextrose 50 ml @ 25 mls/hr PRN DAILY PRN IV for Mag < 1.7 on am labs; Start 06/24/17 at 11:00 Potassium Chloride 40 meq/ Sodium Chloride 1,020 ml @ 75 mls/hr [id number] IV Last administered on 06/25/17 03:22; Start 06/24/17 at 12:00; Stop 06/25/17 at 08 :47; Status DC Potassium Chloride 50 ml @ 25 mls/hr Q2HR IV Last administered on 06/25/17 03: 21; Start 06/24/17 at 20:00; Stop 06/25/17 at 07:59; Status DC Enoxaparin Sodium (Lovenox Per Pharmacy Prophylaxis Dosing) 1 each PRN DAILY PRN MC SEE COMMENTS; Start 06/25/17 at 09:00 Enoxaparin Sodium (Lovenox 30mg Syringe) 30 mg Q24H SQ Last administered on 06/25 10:17; Start 06/25/17 at 09:00 Warfarin Sodium (Coumadin) 6 mg 1X WARF ONCE PO Last administered on 06/25/17 17:08; Start 06/25/17 at 16:00; Stop 06/25/17 at 16:01; Status DC Potassium Chloride (Klor-Con) 20 meq 1X ONCE PO ; Start 06/25/17 at 20:00; Stop 06/25/17 at 20:01 Active Scripts Active Reported Methotrexate (Methotrexate Sodium) 2.5 Mg Tablet 7 Tab PO SATURDAY [hydroxyl-chloroquine] 200 Mg PO DAILY08 Calcium + Vitamin D Tablet (Calcium Carbonate/Vitamin D3) 1 Each Tablet 1 Each PO BID Furosemide 80 Mg Tablet 1 Tab PO BID Claritin (Loratadine) 10 Mg Tablet 1 Tab PO DAILY PRN Coumadin (Warfarin Sodium) 6 Mg Tablet 1.5 Tab PO FR,MO Coumadin (Warfarin Sodium) 6 Mg Tablet 6 Mg PO ,,,SA,DUNCAN Klor-Con M20 (Potassium Chloride) 20 Meq Tab.er.prt 40 Meq PO QID Acetaminophen 500 Mg Tablet 1 Tab PO PRN Q6HRS PRN Mucinex Dm Er 600-30 Mg Tablet (Guaifenesin/Dextromethorphan) 1 Each Tab.er.12h 1 Tab PO PRN Q12HRS Trazodone Hcl 50 Mg Tablet 25 Mg PO HS Propafenone Hcl 150 Mg Tablet 150 Mg PO BID Systane 0.3-0.4% Eye Drops (Propylene Glycol/Peg 400/Pf) 1 Each Droperette 1 Each OP DAILY Xanax (Alprazolam) 0.25 Mg Tablet 1 Tab PO PRN BID PRN Biotin 1 Mg Capsule 1,000 Mg PO BID [lutein] 1 Tab BID [Iron ] 1 Tab DAILY Aldactone (Spironolactone) 25 Mg Tablet 1 Tab PO BID Omeprazole 40 Mg Capsule.dr 40 Mg PO DAILY Tramadol Hcl 50 Mg Tablet 50 Mg PO PRN Q6HRS PRN Fish Oil 1,000 Mg Softgel ([place]-3 Fatty Acids/Fish Oil) 1 Each Capsule 1 Each PO DAILY Allopurinol 100 Mg Tablet 100 Mg PO DAILY Paxil (Paroxetine Hcl) 40 Mg Tablet 20 Mg PO DAILY Levothyroxine Sodium 100 Mcg Tablet 100 Mcg PO DAILY Vitals/I & O Vital Sign - Last 24 Hours 06/24/17 06/24/17 06/24/17 06/24/17 20:00 20:59 21:08 21:15 Temp 97.8 97.8 97.8 97.8 Pulse 74 75 75 Resp 15 30 B/P (MAP) 110/63 106/59 106/59 O2 Delivery Room Air 06/24/17 06/24/17 06/24/17 06/24/17 21:30 21:45 22:00 23:00 Temp 97.6 98.4 98.4 98.5 97.6 98.4 98.4 98.5 Pulse 76 78 78 76 Resp 50 22 30 20 B/P (MAP) 94/62 83/51 88/55 90/57 (68) Pulse Ox 96 O2 Delivery Room Air 06/24/17 06/24/17 06/24/17 06/25/17 23:00 23:30 23:45 00:00 Temp 98.4 98.5 98.5 98.6 98.4 98.5 98.5 98.6 Pulse 76 77 79 79 Resp 25 19 B/P (MAP) 88/52 88/52 95/57 98/57 06/25/17 06/25/17 06/25/17 06/25/17 00:03 00:15 01:03 01:05 Temp 98.0 98.0 98.0 98.0 Pulse 75 80 Resp 30 15 20 B/P (MAP) 92/52 90/53 Pulse Ox 99 98 O2 Delivery Room Air 06/25/17 06/25/17 06/25/17 06/25/17 01:15 01:30 01:45 02:00 Temp 97.6 98.0 97.6 98.2 97.6 98.0 97.6 98.2 Pulse 75 74 78 73 Resp 19 21 B/P (MAP) 86/51 87/51 88/53 93/58 06/25/17 06/25/17 06/25/17 06/25/17 02:00 02:48 03:00 03:06 Temp 97.9 98.4 98.4 98.5 97.9 98.4 98.4 98.5 Pulse 78 73 74 75 Resp 20 18 24 B/P (MAP) 93/58 91/55 92/56 (68) 92/56 Pulse Ox 96 O2 Delivery Room Air 06/25/17 06/25/17 06/25/17 06/25/17 07:00 08:15 08:55 10:00 Temp 98.6 98.6 Pulse 74 81 78 Resp 20 18 B/P (MAP) 88/53 (65) 108/63 94/59 (71) Pulse Ox 98 99 O2 Delivery Room Air Room Air Room Air 06/25/17 06/25/17 06/25/17 06/25/17 15:07 16:00 17:01 19:30 Temp 98.8 99.0 98.8 99.0 Pulse 80 77 88 Resp 18 18 B/P (MAP) 95/55 (68) 98/59 (72) 97/58 (71) Pulse Ox 100 100 O2 Delivery Room Air Room Air Room Air Intake and Output 06/24/17 06/24/17 06/25/17 15:00 23:00 07:00 Intake Total 336 ml 2040 ml Output Total 1650 ml 100 ml Balance -1314 ml 1940 ml Nutrition Consultation Dietary Evaluation: Recommendations by RD: Increase Calorie Intake, Protein supplementation Comments: added boost pudding bid Expected Outcomes/Goals: to meet > 50% est nutr needs Interpretation of weight loss: >5% in 1 month Malnutrition Findings: Body Fat Depletion (Non Severe: Mild Depletion Weight Status: Appropriate CJ DIAL MD Jun 25, 2017 19:56
[2017-06-25] MEDS ORDERED: POTASSIUM CHLORIDE 20 MEQ TABLET.ER. PO ONE (20:00)
[2017-06-25] MEDS: traZODone 50 MG TABLET. PO SCH (21:07)
[2017-06-25] MEDS: ALPRAZolam 0.25 MG TABLET PO PRN (21:09)
[2017-06-26 03:00] VITALS: BP 95/54
[2017-06-26] MEDS: traMADol 50 MG TABLET PO PRN ×3 (04:29→20:49)
[2017-06-26 05:00] LABS: ALBUMIN 2.9 g/dL (3.4-5.0); CALCIUM 8.6 mg/dL (8.5-10.1); CREATININE 1.5 mg/dL (0.6-1.0); GFR 33.8; PHOSPHORUS 2.3 mg/dL (2.6-4.7)
[2017-06-26 05:02] LABS: PROTHROMBIN TIME PATIENT 12.9 SEC (11.7-14.0)
[2017-06-26 05:12] LABS: POTASSIUM 2.7 mmol/L (3.5-5.1)
[2017-06-26] MEDS: POTASSIUM CHLORIDE 10MEQ 100 ML IV SCH ×4 (05:38→09:39)
[2017-06-26] MEDS: PANTOPRAZOLE 40 MG TABLET.DR. PO SCH (06:35)
[2017-06-26 07:00] VITALS: BP 100/53
[2017-06-26] MEDS: MULTIVITAMIN I-VITE TABLET. PO SCH ×2 (08:18→20:48)
[2017-06-26] MEDS: FERROUS SULFATE 325 MG TABLET. PO SCH (08:18)
[2017-06-26] MEDS: OMEGA-3 FATTY ACIDS/FISH OIL 1,000 MG CAPSULE. PO SCH (08:19)
[2017-06-26] MEDS: SPIRONOLACTONE 25 MG TABLET PO SCH (08:20)
[2017-06-26] MEDS: ACETAMINOPHEN 500 MG TABLET PO PRN (08:20)
[2017-06-26] MEDS: CALCIUM CARB/VIT D3 500/200 TABLET. PO SCH ×2 (08:20→17:16)
[2017-06-26] MEDS: HYDROXYCHLOROQUINE 200 MG TABLET PO SCH (08:20)
[2017-06-26] MEDS: PARoxetine 20 MG TABLET PO SCH (08:21)
[2017-06-26] MEDS: ALLOPURINOL 100 MG TABLET. PO SCH (08:21)
[2017-06-26] MEDS: LEVOTHYROXINE 100 MCG TABLET PO SCH (08:21)
[2017-06-26] MEDS: PROPAFENONE 150 MG TABLET. PO SCH ×2 (08:22→20:49)
[2017-06-26] MEDS: ENOXAPARIN 30 MG/0.3 ML SYRINGE. SQ SCH (08:25)
[2017-06-26] MEDS: ALPRAZolam 0.25 MG TABLET PO PRN ×2 (08:38→20:48)
[2017-06-26] MEDS ORDERED: METHOTREXATE SODIUM 2.5 MG TABLET PO SCH (09:00)
[2017-06-26] MEDS: POLYVINYL ALCOHOL 1.4% OPHTH SOLUTION 15ML BOTTLE. OU SCH (09:00)
--- NOTE | 2017-06-26 09:21 | PDOC ---
PROGRESS NOTES Chief Complaint Chief Complaint FTT Uremia ASSESSMENT AND PLAN: 1. Weakness, shortness breath, nausea, abdominal pain and generalized debility : improving. OT/PT eval for rehab 2. AL/uremia: 2/2 dehydration. creat still fluctuating. monitor closely with IVF 3. Hyponatremia: resolved 4. Hyperkalemia, now hypokalemia: replete as indicated 5. CHF: chronic systolic (echo 06/24 with EF 40%, mod aortic stenosis/regurg). tolerating IVF w/o difficulties. Dr Ross following. ? appropriate home lasix dose (previously on 80 bid) 6. Toe pain (corn): consult Dr Stephens 7. Dispo: transfer to Med/Tele floor. History of Present Illness History of Present Illness breathing w/o difficulties, no CP or palpitations. c/o painful 'corn' on her big toe. saw Dr Stephens in past Vitals Vitals Vital Signs Date Time Temp Pulse Resp B/P (MAP) Pulse Ox O2 Delivery O2 Flow Rate FiO2 06/26/17 08:22 74 110/54 06/26/17 07:00 98.0 19 100 Room Air 98.0 Physical Exam General: Alert, Oriented X3, Cooperative, moderate distress Heart: Regular rate, Other (II/ sytolic murmur, II/ diastolic murmur) Lungs: Clear Abdomen: Normal bowel sounds, Soft, No tenderness Extremities: No edema Skin: No rashes, No significant lesion Labs LABS Laboratory Tests Test 06/25/17 11:50 06/25/17 18:00 06/26/17 04:30 Sodium Level 137 mmol/L (136-145) 134 mmol/L (136-145) 138 mmol/L (136-145) Potassium Level 3.7 mmol/L (3.5-5.1) 3.4 mmol/L (3.5-5.1) 2.7 mmol/L (3.5-5.1) Chloride Level 98 mmol/L (98-107) 96 mmol/L (98-107) 97 mmol/L (98-107) Carbon Dioxide Level 36 mmol/L (21-32) 33 mmol/L (21-32) 36 mmol/L (21-32) Anion Gap 3 (6-14) 5 (6-14) 5 (6-14) Blood Urea Nitrogen 48 mg/dL (7-20) 46 mg/dL (7-20) 39 mg/dL (7-20) Creatinine 1.3 mg/dL (0.6-1.0) 2.2 mg/dL (0.6-1.0) 1.5 mg/dL (0.6-1.0) Estimated GFR (Cockcroft-Gault) 39.8 21.7 33.8 Glucose Level 137 mg/dL (70-99) 140 mg/dL (70-99) 78 mg/dL (70-99) Calcium Level 8.0 mg/dL (8.5-10.1) 7.7 mg/dL (8.5-10.1) 8.6 mg/dL (8.5-10.1) Prothrombin Time 12.9 SEC (11.7-14.0) Prothromb Time International Ratio 1.0 (0.8-1.1) Phosphorus Level 2.3 mg/dL (2.6-4.7) Albumin 2.9 g/dL (3.4-5.0) Nutrition Consultation Dietary Evaluation: Recommendations by RD: Increase Calorie Intake, Protein supplementation Comments: added boost pudding bid Expected Outcomes/Goals: to meet > 50% est nutr needs Interpretation of weight loss: >5% in 1 month Malnutrition Findings: Body Fat Depletion (Non Severe: Mild Depletion Weight Status: Appropriate AMBROCIO MONTILLA MD Jun 26, 2017 09:21
[2017-06-26] MEDS ORDERED: POTASSIUM CHLORIDE 20 MEQ TABLET.ER. PO ONE ×2 (09:30→11:30)
[2017-06-26 11:00] VITALS: BP 86/48
[2017-06-26 12:14] LABS: CALCIUM 7.9 mg/dL (8.5-10.1); CREATININE 1.3 mg/dL (0.6-1.0); GFR 39.8
--- NOTE | 2017-06-26 12:33 | PDOC ---
SUBJECTIVE ROS AL/ CKD III Doign well today CVS: no Orthopnea, no CP RESP: no SOB, no WALDROP GI: no Nausea, no Vomiting : n Dysuria, no Urgency OBJECTIVE Vital Signs Vital Signs Date Time Temp Pulse Resp B/P (MAP) Pulse Ox O2 Delivery O2 Flow Rate FiO2 06/26/17 11:00 97.8 77 19 86/48 (61) 99 Room Air 97.8 I & 0 Intake and Output 06/26/17 07:00 Intake Total 2280 ml Balance 2280 ml Intake Oral 1980 ml IV Total 300 ml # Voids 5 PHYSICAL EXAM Physical Exam General Appearance: Awake Alert Oriented x 3 In no Distress Eyes: VIsion Unchanged Conjunctiva Normal EN: No EN Drainage Mucous Memb. moist Neck: no JVD + JVP Supple no Thyromegaly CVS: S1 S2 + Murmur No Gallop No Rub no Edema Resp: no Rales no Rhonchi no Acc. Muscle use GI: BS +ve NO Bruit Non Tender Non Distended : no CVA tenderness; no Suprapubic Tenderness Assessment & Plan HypoKalemia - better after replacement - watch off of Aldactone (stopped due to marginal BPs) CKD III: Current FLuid and E-lyte status does not necessitate emergent need for Dialysis. Will re-evaluate for Dialysis in am h/o HTN: (currently running marginally low) Current BP meds reviewed. See orders for changes. Hold BP meds for lowish BP ? CHF + VHDz - repeat ECHO looks better today Vol depletion - better with IVF as ordered; Diuretic regimen may need to be revisited at d/c AL (VMN) - resolved Discussed Plan of Care and prognosis etc. at length with pt COMMENT/RELEVANT DATA Meds Current Medications Medications (Trade) Dose Ordered Sig/Jose Start Time Stop Time Status Last Admin Dose Admin Acetaminophen (Tylenol) 650 mg PRN Q4HRS PRN 06/23/17 23:30 06/24/17 23:29 DC 06/24/17 20:27 650 MG Allopurinol (Zyloprim) 100 mg DAILY 06/24/17 09:00 06/26/17 08:21 100 MG Alprazolam (Xanax) 0.25 mg PRN BID PRN 06/23/17 20:45 06/26/17 08:38 0.25 MG Artificial Tears (Artificial Tears) 1 drop DAILY 06/24/17 09:00 06/24/17 08:24 1 DROP Calcium Gluconate (Calcium Gluconate) 1,000 mg 1X ONCE 06/23/17 21:30 06/23/17 21:31 DC 06/23/17 21:42 1,000 MG Calcium/Vitamin D (Oscal D 500mg/ 200uts) 1 tab BIDAFTMEAL 06/24/17 09:00 06/26/17 08:20 1 TAB Cetirizine HCl (ZyrTEC) 10 mg PRN DAILY PRN 06/24/17 09:00 Dextrose (Dextrose 50%-Water Syringe) 25 gm 1X ONCE 06/23/17 21:30 06/23/17 21:31 DC 06/23/17 22:00 25 GM Enoxaparin Sodium (Lovenox 30mg Syringe) 30 mg Q24H 06/25/17 09:00 06/26/17 08:25 30 MG Enoxaparin Sodium (Lovenox Per Pharmacy Prophylaxis Dosing) 1 each PRN DAILY PRN 06/25/17 09:00 Fentanyl Citrate (Fentanyl 2ml Vial) 50 mcg PRN Q2HR PRN 06/23/17 23:30 06/24/17 23:29 DC Ferrous Sulfate (Feosol) 325 mg [id number] 06/24/17 08:00 06/26/17 08:18 325 MG Fish Oil (Fish Oil) 1,000 mg DAILY 06/24/17 09:00 06/26/17 08:19 1,000 MG Furosemide (Lasix) 80 mg BID94 06/24/17 09:00 06/24/17 11:09 DC 06/24/17 08:25 80 MG Guaifenesin (MUCINEX ER with DM) 1 tab PRN Q12HRS PRN 06/23/17 20:45 Hydroxychloroquine Sulfate (Plaquenil) 200 mg DAILY08 06/24/17 09:00 06/26/17 08:20 200 MG Insulin Human Regular (NovoLIN R VIAL) 10 unit 1X ONCE 06/23/17 21:30 06/23/17 21:31 DC 06/23/17 21:58 10 UNIT Levothyroxine Sodium (Synthroid) 100 mcg DAILY08 06/24/17 08:00 06/26/17 08:21 100 MCG Magnesium Sulfate/ Dextrose 50 ml @ 25 mls/hr PRN DAILY PRN 06/24/17 11:00 Methotrexate (Rheumatrex) 17.5 mg We@0900 06/26/17 09:00 06/26/17 08:38 17.5 MG Multivitamins/ Minerals (I-Cristiano) 1 tab BID 06/24/17 09:00 06/26/17 08:18 1 TAB Non-Formulary Medication 1,000 mg BID 06/23/17 21:00 06/23/17 21:00 DC Pantoprazole Sodium (Protonix) 40 mg DAILYAC 06/24/17 07:30 06/26/17 06:35 40 MG Paroxetine HCl (Paxil) 20 mg DAILY 06/24/17 09:00 06/26/17 08:21 20 MG Phytonadione (Mephyton) 2.5 mg 1X ONCE 06/24/17 06:00 06/24/17 06:01 DC 06/24/17 06:06 2.5 MG Potassium Chloride 40 meq/ Sodium Chloride 1,020 ml @ 75 mls/hr [id number] 06/24/17 12:00 06/25/17 08:47 DC 06/25/17 03:22 75 MLS/HR Potassium Chloride (Klor-Con) 40 meq 1X ONCE 06/26/17 11:30 06/26/17 11:31 DC 06/26/17 11:30 40 MEQ Propafenone HCl (Rythmol) 150 mg BID 06/23/17 21:00 06/26/17 08:22 150 MG Sodium Bicarbonate 150 meq/Dextrose 1,150 ml @ 100 mls/hr [id number] 06/23/17 22:30 06/24/17 11:09 DC 06/23/17 22:39 100 MLS/HR Sodium Polystyrene Sulfonate (Kayexalate) 15 gm 1X PRN PRN 06/23/17 22:45 06/25/17 08:47 DC Sodium Bicarbonate 50 meq 1X ONCE 06/23/17 21:45 06/23/17 21:46 DC 06/23/17 21:49 50 MEQ Spironolactone (Aldactone) 25 mg [id number] 06/24/17 09:00 06/26/17 08:20 25 MG Tramadol HCl (Ultram) 50 mg PRN Q6HRS PRN 06/23/17 20:45 06/26/17 04:29 50 MG Trazodone HCl (Desyrel) 25 mg HS 06/23/17 21:00 06/25/17 21:07 25 MG Warfarin Sodium (Coumadin - No Dose Today) 1 each 1X WARF ONCE 06/24/17 16:00 06/24/17 16:01 DC 06/24/17 10:19 1 EACH Warfarin Sodium (Coumadin Per Pharmacy) 1 each PRN DAILY PRN 06/23/17 21:00 06/25/17 09:52 1 EACH Warfarin Sodium (Coumadin) 6 mg 1X WARF ONCE 06/25/17 16:00 06/25/17 16:01 DC 06/25/17 17:08 6 MG Lab Laboratory Tests Test 06/25/17 18:00 06/26/17 04:30 06/26/17 11:45 Sodium Level 134 mmol/L (136-145) 138 mmol/L (136-145) 135 mmol/L (136-145) Potassium Level 3.4 mmol/L (3.5-5.1) 2.7 mmol/L (3.5-5.1) 4.0 mmol/L (3.5-5.1) Chloride Level 96 mmol/L (98-107) 97 mmol/L (98-107) 99 mmol/L (98-107) Carbon Dioxide Level 33 mmol/L (21-32) 36 mmol/L (21-32) 35 mmol/L (21-32) Anion Gap 5 (6-14) 5 (6-14) 1 (6-14) Blood Urea Nitrogen 46 mg/dL (7-20) 39 mg/dL (7-20) 37 mg/dL (7-20) Creatinine 2.2 mg/dL (0.6-1.0) 1.5 mg/dL (0.6-1.0) 1.3 mg/dL (0.6-1.0) Estimated GFR (Cockcroft-Gault) 21.7 33.8 39.8 Glucose Level 140 mg/dL (70-99) 78 mg/dL (70-99) 93 mg/dL (70-99) Calcium Level 7.7 mg/dL (8.5-10.1) 8.6 mg/dL (8.5-10.1) 7.9 mg/dL (8.5-10.1) Prothrombin Time 12.9 SEC (11.7-14.0) Prothromb Time International Ratio 1.0 (0.8-1.1) Phosphorus Level 2.3 mg/dL (2.6-4.7) Magnesium Level 1.9 mg/dL (1.8-2.4) Albumin 2.9 g/dL (3.4-5.0) MANISH YUSUF MD Jun 26, 2017 12:33
--- NOTE | 2017-06-26 12:36 | RAD ---
CT chest without contrast 06/26/2017 Clinical indication: Shortness of air. Comparison: PET CT January 10, 2017, CT neck 05/19/2017 Technique: CT helical acquisition of the chest was obtained without intravenous contrast according to standard protocol. Coronal and sagittal reformations were obtained. PQRS Compliance Statement: One or more of the following individualized dose reduction techniques were utilized for this examination: 1. Automated exposure control 2. Adjustment of the mA and/or kV according to patient size 3. Use of iterative reconstruction technique Findings: Chest: Interval placement of a right IJ central venous catheter with right lower neck subcutaneous days emphysema which is likely due to catheter placement. There is minimal subcutaneous gas in the lateral right anterior chest wall with no associated loculated gas/fluid collection. Left chest wall cardiac connection device with transvenous pacer leads again noted. Heart size is mildly enlarged without significant pericardial effusion. Mitral annular and aortic valvular leaflet calcifications are noted. The thoracic aorta is normal in caliber. No axillary, mediastinal or obvious hilar lymphadenopathy, though evaluation is limited due to the absence of intravenous contrast. The central airways are patent. Prior left upper lobectomy. Scattered areas of stable pleural-parenchymal scarring. There is a stable 4 mm noncalcified pulmonary nodule in the right upper lobe, not really changed since at least June 20, 2009 examination compatible with benign nodule. Stable 2 mm noncalcified nodule in the right lower lobe also unchanged since 2008 examination compatible with benign nodule. Stable calcified granuloma in the right middle lobe and right lower lobe. No new or enlarging pulmonary nodules. Stable elevation of the left hemidiaphragm. Trace right pleural effusion. No pneumothorax. There are no destructive osseous lesions. Limited images of the upper abdomen: Severely limited due to artifact from multiple surgical clips and coils. Grossly unremarkable. Impression: 1. Prior left upper lobectomy with no new or enlarging pulmonary nodule. 2. No noncontrast evidence of thoracic lymphadenopathy. 3. Stable mild cardiomegaly. 4. Trace right pleural effusion. 5. No new airspace consolidation. 6. Interval placement of right IJ central venous catheter with development of right lower neck subcutaneous emphysema, likely due to catheter insertion.
--- NOTE | 2017-06-26 14:29 | PDOC ---
PROGRESS NOTES Subjective Subjective Pt states that she is feeling much better today. Pt underwent a CT scan today to evaluate her lungs. Pt denies any other symptoms at this time. Objective Objective Gen: pt sitting comfortably in bed; in no acute distress or pain HEENT: atraumatic findings Neck: supple; no JVD or LAd Card: RRR no murmur; normal S1, S2 Resp: CTAB no rhonchi/rales/wheezing Neuro: pt appears to be in good mental health. Denies confusion. Pt does admit to feeling fatigued but attributes this to the activity of the CT scan. Vital Signs Date Time Temp Pulse Resp B/P (MAP) Pulse Ox O2 Delivery O2 Flow Rate FiO2 06/26/17 13:34 99 Room Air 06/26/17 11:00 97.8 77 19 86/48 (61) 97.8 Intake and Output 06/26/17 07:00 Intake Total 2280 ml Balance 2280 ml Intake Oral 1980 ml IV Total 300 ml # Voids 5 Physical Exam Heart: Regular rate, Normal S1, Normal S2, Other (no change in diastolic murmur ) General: Alert, Oriented X3, Cooperative, No acute distress HEENT: Atraumatic Lungs: Clear to auscultation, Normal air movement Neck: Supple, No JVD Neuro: Normal speech Assessment Assessment Problems Medical Problems: (1) Hyperkalemia Status: Acute (2) Renal failure Status: Acute Pt appears to be much more stable. CT scan shows no new or enlarged pulmonary nodule and confirms no thoracic lymphadenopathy. INR is now back to normal levels. Spironolactone was discontinued by Dr. Victor. Comment Review of Relevant I have reviewed the following items leila (where applicable) has been applied. Labs Laboratory Tests Test 06/24/17 18:00 06/25/17 06:15 06/25/17 11:50 06/25/17 18:00 Sodium Level 133 mmol/L (136-145) 137 mmol/L (136-145) 137 mmol/L (136-145) 134 mmol/L (136-145) Potassium Level 2.4 mmol/L (3.5-5.1) 3.8 mmol/L (3.5-5.1) 3.7 mmol/L (3.5-5.1) 3.4 mmol/L (3.5-5.1) Chloride Level 89 mmol/L (98-107) 96 mmol/L (98-107) 98 mmol/L (98-107) 96 mmol/L (98-107) Carbon Dioxide Level 39 mmol/L (21-32) 37 mmol/L (21-32) 36 mmol/L (21-32) 33 mmol/L (21-32) Anion Gap 5 (6-14) 4 (6-14) 3 (6-14) 5 (6-14) Blood Urea Nitrogen 62 mg/dL (7-20) 48 mg/dL (7-20) 48 mg/dL (7-20) 46 mg/dL (7-20) Creatinine 1.6 mg/dL (0.6-1.0) 1.2 mg/dL (0.6-1.0) 1.3 mg/dL (0.6-1.0) 2.2 mg/dL (0.6-1.0) Estimated GFR (Cockcroft-Gault) 31.3 43.7 39.8 21.7 Glucose Level 231 mg/dL (70-99) 83 mg/dL (70-99) 137 mg/dL (70-99) 140 mg/dL (70-99) Calcium Level 8.6 mg/dL (8.5-10.1) 8.1 mg/dL (8.5-10.1) 8.0 mg/dL (8.5-10.1) 7.7 mg/dL (8.5-10.1) White Blood Count 7.2 x10^3/uL (4.0-11.0) Red Blood Count 2.98 x10^6/uL (3.50-5.40) Hemoglobin 10.6 g/dL (12.0-15.5) Hematocrit 31.1 % (36.0-47.0) Mean Corpuscular Volume 104 fL (79-100) Mean Corpuscular Hemoglobin 36 pg (25-35) Mean Corpuscular Hemoglobin Concent 34 g/dL (31-37) Red Cell Distribution Width 16.0 % (11.5-14.5) Platelet Count 141 x10^3/uL (140-400) Neutrophils (%) (Auto) 80 % (31-73) Lymphocytes (%) (Auto) 14 % (24-48) Monocytes (%) (Auto) 6 % (0-9) Eosinophils (%) (Auto) 0 % (0-3) Basophils (%) (Auto) 0 % (0-3) Neutrophils # (Auto) 5.8 x10^3uL (1.8-7.7) Lymphocytes # (Auto) 1.0 x10^3/uL (1.0-4.8) Monocytes # (Auto) 0.4 x10^3/uL (0.0-1.1) Eosinophils # (Auto) 0.0 x10^3/uL (0.0-0.7) Basophils # (Auto) 0.0 x10^3/uL (0.0-0.2) Prothrombin Time 15.2 SEC (11.7-14.0) Prothromb Time International Ratio 1.3 (0.8-1.1) BUN/Creatinine Ratio 40 (6-20) Phosphorus Level 2.7 mg/dL (2.6-4.7) Magnesium Level 1.8 mg/dL (1.8-2.4) Total Bilirubin 0.9 mg/dL (0.2-1.0) Aspartate Amino Transf (AST/SGOT) 30 U/L (15-37) Alanine Aminotransferase (ALT/SGPT) 25 U/L (14-59) Alkaline Phosphatase 56 U/L (46-116) Total Protein 5.9 g/dL (6.4-8.2) Albumin 2.9 g/dL (3.4-5.0) Albumin/Globulin Ratio 1.0 (1.0-1.7) Test 06/26/17 04:30 06/26/17 11:45 Prothrombin Time 12.9 SEC (11.7-14.0) Prothromb Time International Ratio 1.0 (0.8-1.1) Sodium Level 138 mmol/L (136-145) 135 mmol/L (136-145) Potassium Level 2.7 mmol/L (3.5-5.1) 4.0 mmol/L (3.5-5.1) Chloride Level 97 mmol/L (98-107) 99 mmol/L (98-107) Carbon Dioxide Level 36 mmol/L (21-32) 35 mmol/L (21-32) Anion Gap 5 (6-14) 1 (6-14) Blood Urea Nitrogen 39 mg/dL (7-20) 37 mg/dL (7-20) Creatinine 1.5 mg/dL (0.6-1.0) 1.3 mg/dL (0.6-1.0) Estimated GFR (Cockcroft-Gault) 33.8 39.8 Glucose Level 78 mg/dL (70-99) 93 mg/dL (70-99) Calcium Level 8.6 mg/dL (8.5-10.1) 7.9 mg/dL (8.5-10.1) Phosphorus Level 2.3 mg/dL (2.6-4.7) Magnesium Level 1.9 mg/dL (1.8-2.4) Albumin 2.9 g/dL (3.4-5.0) Laboratory Tests Test 06/25/17 18:00 06/26/17 04:30 06/26/17 11:45 Sodium Level 134 mmol/L (136-145) 138 mmol/L (136-145) 135 mmol/L (136-145) Potassium Level 3.4 mmol/L (3.5-5.1) 2.7 mmol/L (3.5-5.1) 4.0 mmol/L (3.5-5.1) Chloride Level 96 mmol/L (98-107) 97 mmol/L (98-107) 99 mmol/L (98-107) Carbon Dioxide Level 33 mmol/L (21-32) 36 mmol/L (21-32) 35 mmol/L (21-32) Anion Gap 5 (6-14) 5 (6-14) 1 (6-14) Blood Urea Nitrogen 46 mg/dL (7-20) 39 mg/dL (7-20) 37 mg/dL (7-20) Creatinine 2.2 mg/dL (0.6-1.0) 1.5 mg/dL (0.6-1.0) 1.3 mg/dL (0.6-1.0) Estimated GFR (Cockcroft-Gault) 21.7 33.8 39.8 Glucose Level 140 mg/dL (70-99) 78 mg/dL (70-99) 93 mg/dL (70-99) Calcium Level 7.7 mg/dL (8.5-10.1) 8.6 mg/dL (8.5-10.1) 7.9 mg/dL (8.5-10.1) Prothrombin Time 12.9 SEC (11.7-14.0) Prothromb Time International Ratio 1.0 (0.8-1.1) Phosphorus Level 2.3 mg/dL (2.6-4.7) Magnesium Level 1.9 mg/dL (1.8-2.4) Albumin 2.9 g/dL (3.4-5.0) Medications Current Medications Acetaminophen (Tylenol) 500 mg PRN Q6HRS PRN PO MILD PAIN / TEMP Last administered on 06/26/17 08:20; Start 06/23/17 at 20:45 Allopurinol (Zyloprim) 100 mg DAILY PO Last administered on 06/26/17 08:21; Start 06/24/17 at 09:00 Alprazolam (Xanax) 0.25 mg PRN BID PRN PO ANXIETY / AGITATION Last administered on 06/26/17 08:38; Start 06/23/17 at 20:45 Furosemide (Lasix) 80 mg BID94 PO Last administered on 06/24/17 08:25; Start 06/24/17 at 09:00; Stop 06/24/17 at 11:09; Status DC Guaifenesin (MUCINEX ER with DM) 1 tab PRN Q12HRS PRN PO MUCOUS/CONGESTION; Start 06/23/17 at 20:45 Levothyroxine Sodium (Synthroid) 100 mcg DAILY07 PO ; Start 06/24/17 at 07:00; Stop 06/24/17 at 07:00; Status DC Potassium Chloride (Klor-Con) 40 meq QID PO ; Start 06/23/17 at 21:00; Stop at 22:13; Status DC Propafenone HCl (Rythmol) 150 mg BID PO Last administered on 06/26/17 08:22; Start 06/23/17 at 21:00 Spironolactone (Aldactone) 25 mg BID94 PO Last administered on 06/26/17 08:20; Start 06/24/17 at 09:00; Stop 06/26/17 at 12:34; Status DC Tramadol HCl (Ultram) 50 mg PRN Q6HRS PRN PO PAIN Last administered on 13:34; Start 06/23/17 at 20:45 Trazodone HCl (Desyrel) 25 mg HS PO Last administered on 06/25/17 21:07; Start 06/23/17 at 21:00 Warfarin Sodium (Coumadin) 9 mg DAILY16 PO ; Start 06/24/17 at 16:00; Stop 06/24 at 16:00; Status DC Non-Formulary Medication 1,000 mg BID PO ; Start 06/23/17 at 21:00; Stop at 21:00; Status DC Calcium/Vitamin D (Oscal D 500mg/ 200uts) 1 tab BIDAFTMEAL PO Last administered on 06/26/17 08:20; Start 06/24/17 at 09:00 Cetirizine HCl (ZyrTEC) 10 mg PRN DAILY PRN PO ALLERGIES; Start 06/24/17 at 09: 00 Fish Oil (Fish Oil) 1,000 mg DAILY PO Last administered on 06/26/17 08:19; Start 06/24/17 at 09:00 Pantoprazole Sodium (Protonix) 40 mg DAILYAC PO Last administered on 06/26/17 06:35; Start 06/24/17 at 07:30 Paroxetine HCl (Paxil) 20 mg DAILY PO Last administered on 06/26/17 08:21; Start 06/24/17 at 09:00 Artificial Tears (Artificial Tears) 1 drop DAILY OU Last administered on 08:24; Start 06/24/17 at 09:00 Hydroxychloroquine Sulfate (Plaquenil) 200 mg DAILY08 PO Last administered on 08:20; Start 06/24/17 at 09:00 Ferrous Sulfate (Feosol) 325 mg DAILYWBKFT PO Last administered on 06/26/17 08: 18; Start 06/24/17 at 08:00 Multivitamins/ Minerals (I-Cristiano) 1 tab BID PO Last administered on 06/26/17 08: 18; Start 06/24/17 at 09:00 Methotrexate (Rheumatrex) 17.5 mg We@0900 PO Last administered on 06/26/17 08: 38; Start 06/26/17 at 09:00 Warfarin Sodium (Coumadin Per Pharmacy) 1 each PRN DAILY PRN MC SEE COMMENTS Last administered on 06/26/17 12:46; Start 06/23/17 at 21:00 Calcium Gluconate (Calcium Gluconate) 1,000 mg 1X ONCE IVP Last administered on 06/23/17 21:42; Start 06/23/17 at 21:30; Stop 06/23/17 at 21:31; Status DC Dextrose (Dextrose 50%-Water Syringe) 25 gm 1X ONCE IV Last administered on 22:00; Start 06/23/17 at 21:30; Stop 06/23/17 at 21:31; Status DC Insulin Human Regular (NovoLIN R VIAL) 10 unit 1X ONCE IV Last administered on 06/23/17 21:58; Start 06/23/17 at 21:30; Stop 06/23/17 at 21:31; Status DC Sodium Bicarbonate 50 meq 1X ONCE IV Last administered on 06/23/17 21:49; Start 06/23/17 at 21:45; Stop 06/23/17 at 21:46; Status DC Sodium Bicarbonate 150 meq/Dextrose 1,150 ml @ 100 mls/hr [id number] IV Last administered on 06/23/17 22:39; Start 06/23/17 at 22:30; Stop 06/24/17 at 11:09 ; Status DC Sodium Polystyrene Sulfonate (Kayexalate) 30 gm 1X ONCE PO Last administered on 06/23/17 22:37; Start 06/23/17 at 22:30; Stop 06/23/17 at 22:31; Status DC Sodium Polystyrene Sulfonate (Kayexalate) 15 gm 1X PRN PRN PO K+ >6 4 HOURS AFTER INITIAL DOSE; Start 06/23/17 at 22:45; Stop 06/25/17 at 08:47; Status DC Fentanyl Citrate (Fentanyl 2ml Vial) 50 mcg PRN Q2HR PRN IV PAIN; Start at 23:30; Stop 06/24/17 at 23:29; Status DC Acetaminophen (Tylenol) 650 mg PRN Q4HRS PRN PO FEVER Last administered on 06/24 20:27; Start 06/23/17 at 23:30; Stop 06/24/17 at 23:29; Status DC Levothyroxine Sodium (Synthroid) 100 mcg DAILY08 PO Last administered on 08:21; Start 06/24/17 at 08:00 Phytonadione (Mephyton) 2.5 mg 1X ONCE PO Last administered on 06/24/17 06:06 ; Start 06/24/17 at 06:00; Stop 06/24/17 at 06:01; Status DC Potassium Chloride (Klor-Con) 40 meq 1X ONCE PO Last administered on 06:06; Start 06/24/17 at 06:00; Stop 06/24/17 at 06:01; Status DC Potassium Chloride (Klor-Con) 40 meq 1X ONCE PO Last administered on 09:43; Start 06/24/17 at 09:45; Stop 06/24/17 at 09:46; Status DC Potassium Chloride (Klor-Con) 40 meq 1X ONCE PO Last administered on 15:31; Start 06/24/17 at 14:00; Stop 06/24/17 at 14:01; Status DC Warfarin Sodium (Coumadin - No Dose Today) 1 each 1X WARF ONCE MC Last administered on 06/24/17 10:19; Start 06/24/17 at 16:00; Stop 06/24/17 at 16:01 ; Status DC Magnesium Sulfate/ Dextrose 50 ml @ 25 mls/hr PRN DAILY PRN IV for Mag < 1.7 on am labs; Start 06/24/17 at 11:00 Potassium Chloride 40 meq/ Sodium Chloride 1,020 ml @ 75 mls/hr [id number] IV Last administered on 06/25/17 03:22; Start 06/24/17 at 12:00; Stop 06/25/17 at 08 :47; Status DC Potassium Chloride 50 ml @ 25 mls/hr Q2HR IV Last administered on 06/25/17 03: 21; Start 06/24/17 at 20:00; Stop 06/25/17 at 07:59; Status DC Enoxaparin Sodium (Lovenox Per Pharmacy Prophylaxis Dosing) 1 each PRN DAILY PRN MC SEE COMMENTS; Start 06/25/17 at 09:00 Enoxaparin Sodium (Lovenox 30mg Syringe) 30 mg Q24H SQ Last administered on 06/26 08:25; Start 06/25/17 at 09:00 Warfarin Sodium (Coumadin) 6 mg 1X WARF ONCE PO Last administered on 06/25/17 17:08; Start 06/25/17 at 16:00; Stop 06/25/17 at 16:01; Status DC Potassium Chloride (Klor-Con) 20 meq 1X ONCE PO Last administered on 06/25/17 21:07; Start 06/25/17 at 20:00; Stop 06/25/17 at 20:01; Status DC Potassium Chloride 100 ml @ 100 mls/hr Q1H IV Last administered on 06/26/17 09 :39; Start 06/26/17 at 05:30; Stop 06/26/17 at 09:29; Status DC Potassium Chloride (Klor-Con) 40 meq 1X ONCE PO Last administered on 06/26/17 09:40; Start 06/26/17 at 09:30; Stop 06/26/17 at 09:33; Status DC Potassium Chloride (Klor-Con) 40 meq 1X ONCE PO Last administered on 06/26/17 11:30; Start 06/26/17 at 11:30; Stop 06/26/17 at 11:31; Status DC Warfarin Sodium (Coumadin) 8 mg 1X WARF ONCE PO ; Start 06/26/17 at 16:00; Stop 06/26/17 at 16:01 Active Scripts Active Reported Methotrexate (Methotrexate Sodium) 2.5 Mg Tablet 7 Tab PO SATURDAY [hydroxyl-chloroquine] 200 Mg PO DAILY08 Calcium + Vitamin D Tablet (Calcium Carbonate/Vitamin D3) 1 Each Tablet 1 Each PO BID Furosemide 80 Mg Tablet 1 Tab PO BID Claritin (Loratadine) 10 Mg Tablet 1 Tab PO DAILY PRN Coumadin (Warfarin Sodium) 6 Mg Tablet 1.5 Tab PO FR,MO Coumadin (Warfarin Sodium) 6 Mg Tablet 6 Mg PO ,,,SA,DUNCAN Klor-Con M20 (Potassium Chloride) 20 Meq Tab.er.prt 40 Meq PO QID Acetaminophen 500 Mg Tablet 1 Tab PO PRN Q6HRS PRN Mucinex Dm Er 600-30 Mg Tablet (Guaifenesin/Dextromethorphan) 1 Each Tab.er.12h 1 Tab PO PRN Q12HRS Trazodone Hcl 50 Mg Tablet 25 Mg PO HS Propafenone Hcl 150 Mg Tablet 150 Mg PO BID Systane 0.3-0.4% Eye Drops (Propylene Glycol/Peg 400/Pf) 1 Each Droperette 1 Each OP DAILY Xanax (Alprazolam) 0.25 Mg Tablet 1 Tab PO PRN BID PRN Biotin 1 Mg Capsule 1,000 Mg PO BID [lutein] 1 Tab BID [Iron ] 1 Tab DAILY Aldactone (Spironolactone) 25 Mg Tablet 1 Tab PO BID Omeprazole 40 Mg Capsule.dr 40 Mg PO DAILY Tramadol Hcl 50 Mg Tablet 50 Mg PO PRN Q6HRS PRN Fish Oil 1,000 Mg Softgel ([place]-3 Fatty Acids/Fish Oil) 1 Each Capsule 1 Each PO DAILY Allopurinol 100 Mg Tablet 100 Mg PO DAILY Paxil (Paroxetine Hcl) 40 Mg Tablet 20 Mg PO DAILY Levothyroxine Sodium 100 Mcg Tablet 100 Mcg PO DAILY Vitals/I & O Vital Sign - Last 24 Hours 06/25/17 06/25/17 06/25/17 06/25/17 15:07 16:00 17:01 19:30 Temp 98.8 99.0 98.8 99.0 Pulse 80 77 88 Resp 18 18 B/P (MAP) 95/55 (68) 98/59 (72) 97/58 (71) Pulse Ox 100 100 O2 Delivery Room Air Room Air Room Air 06/25/17 06/25/17 06/25/17 06/26/17 19:45 21:07 23:32 03:00 Temp 97.8 98.7 97.8 98.7 Pulse 88 74 75 Resp 16 18 B/P (MAP) 97/57 98/60 (73) 95/54 (68) Pulse Ox 100 100 O2 Delivery Room Air Room Air Room Air 06/26/17 06/26/17 06/26/17 06/26/17 07:00 08:00 08:22 11:00 Temp 98.0 97.8 98.0 97.8 Pulse 74 74 77 Resp 19 19 B/P (MAP) 100/53 (69) 110/54 86/48 (61) Pulse Ox 100 99 O2 Delivery Room Air Room Air Room Air 06/26/17 13:34 Pulse Ox 99 O2 Delivery Room Air Intake and Output 06/25/17 06/25/17 06/26/17 15:00 23:00 07:00 Intake Total 540 ml 1240 ml 500 ml Balance 540 ml 1240 ml 500 ml Nutrition Consultation Dietary Evaluation: Recommendations by RD: Increase Calorie Intake, Protein supplementation Comments: added boost pudding bid Expected Outcomes/Goals: to meet > 50% est nutr needs Interpretation of weight loss: >5% in 1 month Malnutrition Findings: Body Fat Depletion (Non Severe: Mild Depletion Weight Status: Appropriate CJ DIAL MD Jun 26, 2017 14:29
[2017-06-26 15:00] VITALS: BP 95/50
[2017-06-26] MEDS ORDERED: WARFARIN 4 MG TABLET. PO ONE (16:00)
--- NOTE | 2017-06-26 17:01 | PDOC2 ---
NEUROLOGY CONSULT Date of Admission Date of Admission DATE: 06/26/17 TIME: 16:49 Reason for Consult Reason for Consult: IMPRESSION: Tremors or shaking in body. Left acoustic neuroma. Hypokalemia, K+ 2.7 Generalized weakness x 5 days. AFib CHF TIA HLD Hypothyroidism Left side lung cancer s/p lobectomy. Pacemaker placement. RECOMMENDATIONS/PLAN: EEG Lab: see orders. Treat medical diseases. No MRI due to pacemaker. OT/PT. HISTORY OF THE PRESENT ILLNESS: 76-y-old female patient with above medical diseases and left side lung cancer s/p lobectomy has been having symptoms of generalized weakness for 5 days before coming to the ER of [facility]. She also complained episodic tremors or shaking movements in her body lasted briefly. Past Medical History Cardiovascular: AFIB, CHF, Hyperlipidemia CENTRAL NERVOUS SYSTEM: TIA GI: GERD Heme/Onc: Anemia NOS, Cancer Psych: Anxiety, Depression Musculoskeletal: Osteoarthritis, Stiffness Rheumatologic: Gout, Rheumatoid arthritis Endocrine: Hypothyroidism Past Surgical History Pacemaker Cholecystectomy Family History Cancer Social History ALCOHOL: none Drugs: None ALLERGY: Reviewed. MEDICATIONS: Refer to MAR REVIEW OF SYSTEMS: Constitutional: No malnutrition, cachexia. Head: No traumatic brain or head injury. Skin: No edema, or rash. Ear: No infection. Eyes: No vision loss or color blindness. Nose: No bleeding or purulent discharges. Hearing: Hearing decrease. Neck: No injury. Breast: No history of cancer, masses,or discharges. Cardiac: Pacemaker Placement Pulmonary: left lung cancer s/o lobectomy. GI: No GI ulcer, GI bleeding. Urinary/genital: UTI. Endocrinologic: No cousin face, craniofacial dysmorphism, polydactyly, goiter, Diabetes Mellitus, hypothyroidism, obesity, morbid obesity. Skeletomuscular: Generalized weakness. Neurological: see HP. Psychiatric: Denies drug use/abuse. Otherwise, not [id number] review of systems. PHYSICAL EXAMINATION: General appearance is in subacute distress. HEENT: Normocephalic and nontraumatic. Eyes, nose, ears, and throat are unremarkable. Neck is supple. No lymphadenopathy. No bruits are heard over the carotid artery. No crepitus. Cardiovascular: S1, S2, regular rate and rhythm. Pulmonary: Clear to auscultation bilaterally. Abdomen: Bowel sounds are positive. Abdomen is soft, nontender, and nondistended. Extremities: No rash, lesions, or edema. No restriction of range of motion NEUROLOGICAL EXAMINATION: Awake. Oriented to place and person but not fully to time. PERRL. EOMI. CN: no focal findings. Muscle tone: within normal. Muscle strength: 4 DTR: 2- Plantar reflex: Flexor response bilaterally Gait: not examined in bed. Sensory exam: no abnormal findings. No acute cerebellar signs elicited. F-T-N test fine. no obvious tremors noted. Current Medications Current Medications Current Medications Acetaminophen (Tylenol) 500 mg PRN Q6HRS PRN PO MILD PAIN / TEMP Last administered on 06/26/17 08:20; Start 06/23/17 at 20:45 Allopurinol (Zyloprim) 100 mg DAILY PO Last administered on 06/26/17 08:21; Start 06/24/17 at 09:00 Alprazolam (Xanax) 0.25 mg PRN BID PRN PO ANXIETY / AGITATION Last administered on 06/26/17 08:38; Start 06/23/17 at 20:45 Furosemide (Lasix) 80 mg BID94 PO Last administered on 06/24/17 08:25; Start 06/24/17 at 09:00; Stop 06/24/17 at 11:09; Status DC Guaifenesin (MUCINEX ER with DM) 1 tab PRN Q12HRS PRN PO MUCOUS/CONGESTION; Start 06/23/17 at 20:45 Levothyroxine Sodium (Synthroid) 100 mcg DAILY07 PO ; Start 06/24/17 at 07:00; Stop 06/24/17 at 07:00; Status DC Potassium Chloride (Klor-Con) 40 meq QID PO ; Start 06/23/17 at 21:00; Stop at 22:13; Status DC Propafenone HCl (Rythmol) 150 mg BID PO Last administered on 06/26/17 08:22; Start 06/23/17 at 21:00 Spironolactone (Aldactone) 25 mg BID94 PO Last administered on 06/26/17 08:20; Start 06/24/17 at 09:00; Stop 06/26/17 at 12:34; Status DC Tramadol HCl (Ultram) 50 mg PRN Q6HRS PRN PO PAIN Last administered on 13:34; Start 06/23/17 at 20:45 Trazodone HCl (Desyrel) 25 mg HS PO Last administered on 06/25/17 21:07; Start 06/23/17 at 21:00 Warfarin Sodium (Coumadin) 9 mg DAILY16 PO ; Start 06/24/17 at 16:00; Stop 06/24 at 16:00; Status DC Non-Formulary Medication 1,000 mg BID PO ; Start 06/23/17 at 21:00; Stop at 21:00; Status DC Calcium/Vitamin D (Oscal D 500mg/ 200uts) 1 tab BIDAFTMEAL PO Last administered on 06/26/17 08:20; Start 06/24/17 at 09:00 Cetirizine HCl (ZyrTEC) 10 mg PRN DAILY PRN PO ALLERGIES; Start 06/24/17 at 09: 00 Fish Oil (Fish Oil) 1,000 mg DAILY PO Last administered on 06/26/17 08:19; Start 06/24/17 at 09:00 Pantoprazole Sodium (Protonix) 40 mg DAILYAC PO Last administered on 06/26/17 06:35; Start 06/24/17 at 07:30 Paroxetine HCl (Paxil) 20 mg DAILY PO Last administered on 06/26/17 08:21; Start 06/24/17 at 09:00 Artificial Tears (Artificial Tears) 1 drop DAILY OU Last administered on 08:24; Start 06/24/17 at 09:00 Hydroxychloroquine Sulfate (Plaquenil) 200 mg DAILY08 PO Last administered on 08:20; Start 06/24/17 at 09:00 Ferrous Sulfate (Feosol) 325 mg DAILYWBKFT PO Last administered on 06/26/17 08: 18; Start 06/24/17 at 08:00 Multivitamins/ Minerals (I-Cristiano) 1 tab BID PO Last administered on 06/26/17 08: 18; Start 06/24/17 at 09:00 Methotrexate (Rheumatrex) 17.5 mg We@0900 PO Last administered on 06/26/17 08: 38; Start 06/26/17 at 09:00 Warfarin Sodium (Coumadin Per Pharmacy) 1 each PRN DAILY PRN MC SEE COMMENTS Last administered on 06/26/17 12:46; Start 06/23/17 at 21:00 Calcium Gluconate (Calcium Gluconate) 1,000 mg 1X ONCE IVP Last administered on 06/23/17 21:42; Start 06/23/17 at 21:30; Stop 06/23/17 at 21:31; Status DC Dextrose (Dextrose 50%-Water Syringe) 25 gm 1X ONCE IV Last administered on 22:00; Start 06/23/17 at 21:30; Stop 06/23/17 at 21:31; Status DC Insulin Human Regular (NovoLIN R VIAL) 10 unit 1X ONCE IV Last administered on 06/23/17 21:58; Start 06/23/17 at 21:30; Stop 06/23/17 at 21:31; Status DC Sodium Bicarbonate 50 meq 1X ONCE IV Last administered on 06/23/17 21:49; Start 06/23/17 at 21:45; Stop 06/23/17 at 21:46; Status DC Sodium Bicarbonate 150 meq/Dextrose 1,150 ml @ 100 mls/hr [id number] IV Last administered on 06/23/17 22:39; Start 06/23/17 at 22:30; Stop 06/24/17 at 11:09 ; Status DC Sodium Polystyrene Sulfonate (Kayexalate) 30 gm 1X ONCE PO Last administered on 06/23/17 22:37; Start 06/23/17 at 22:30; Stop 06/23/17 at 22:31; Status DC Sodium Polystyrene Sulfonate (Kayexalate) 15 gm 1X PRN PRN PO K+ >6 4 HOURS AFTER INITIAL DOSE; Start 06/23/17 at 22:45; Stop 06/25/17 at 08:47; Status DC Fentanyl Citrate (Fentanyl 2ml Vial) 50 mcg PRN Q2HR PRN IV PAIN; Start at 23:30; Stop 06/24/17 at 23:29; Status DC Acetaminophen (Tylenol) 650 mg PRN Q4HRS PRN PO FEVER Last administered on 06/24 20:27; Start 06/23/17 at 23:30; Stop 06/24/17 at 23:29; Status DC Levothyroxine Sodium (Synthroid) 100 mcg DAILY08 PO Last administered on 08:21; Start 06/24/17 at 08:00 Phytonadione (Mephyton) 2.5 mg 1X ONCE PO Last administered on 06/24/17 06:06 ; Start 06/24/17 at 06:00; Stop 06/24/17 at 06:01; Status DC Potassium Chloride (Klor-Con) 40 meq 1X ONCE PO Last administered on 06:06; Start 06/24/17 at 06:00; Stop 06/24/17 at 06:01; Status DC Potassium Chloride (Klor-Con) 40 meq 1X ONCE PO Last administered on 09:43; Start 06/24/17 at 09:45; Stop 06/24/17 at 09:46; Status DC Potassium Chloride (Klor-Con) 40 meq 1X ONCE PO Last administered on 15:31; Start 06/24/17 at 14:00; Stop 06/24/17 at 14:01; Status DC Warfarin Sodium (Coumadin - No Dose Today) 1 each 1X WARF ONCE MC Last administered on 06/24/17 10:19; Start 06/24/17 at 16:00; Stop 06/24/17 at 16:01 ; Status DC Magnesium Sulfate/ Dextrose 50 ml @ 25 mls/hr PRN DAILY PRN IV for Mag < 1.7 on am labs; Start 06/24/17 at 11:00 Potassium Chloride 40 meq/ Sodium Chloride 1,020 ml @ 75 mls/hr [id number] IV Last administered on 06/25/17 03:22; Start 06/24/17 at 12:00; Stop 06/25/17 at 08 :47; Status DC Potassium Chloride 50 ml @ 25 mls/hr Q2HR IV Last administered on 06/25/17 03: 21; Start 06/24/17 at 20:00; Stop 06/25/17 at 07:59; Status DC Enoxaparin Sodium (Lovenox Per Pharmacy Prophylaxis Dosing) 1 each PRN DAILY PRN MC SEE COMMENTS; Start 06/25/17 at 09:00 Enoxaparin Sodium (Lovenox 30mg Syringe) 30 mg Q24H SQ Last administered on 06/26 08:25; Start 06/25/17 at 09:00 Warfarin Sodium (Coumadin) 6 mg 1X WARF ONCE PO Last administered on 06/25/17 17:08; Start 06/25/17 at 16:00; Stop 06/25/17 at 16:01; Status DC Potassium Chloride (Klor-Con) 20 meq 1X ONCE PO Last administered on 06/25/17 21:07; Start 06/25/17 at 20:00; Stop 06/25/17 at 20:01; Status DC Potassium Chloride 100 ml @ 100 mls/hr Q1H IV Last administered on 06/26/17 09 :39; Start 06/26/17 at 05:30; Stop 06/26/17 at 09:29; Status DC Potassium Chloride (Klor-Con) 40 meq 1X ONCE PO Last administered on 06/26/17 09:40; Start 06/26/17 at 09:30; Stop 06/26/17 at 09:33; Status DC Potassium Chloride (Klor-Con) 40 meq 1X ONCE PO Last administered on 06/26/17 11:30; Start 06/26/17 at 11:30; Stop 06/26/17 at 11:31; Status DC Warfarin Sodium (Coumadin) 8 mg 1X WARF ONCE PO ; Start 06/26/17 at 16:00; Stop 06/26/17 at 16:01; Status DC Active Scripts Active Reported Methotrexate (Methotrexate Sodium) 2.5 Mg Tablet 7 Tab PO SATURDAY [hydroxyl-chloroquine] 200 Mg PO DAILY08 Calcium + Vitamin D Tablet (Calcium Carbonate/Vitamin D3) 1 Each Tablet 1 Each PO BID Furosemide 80 Mg Tablet 1 Tab PO BID Claritin (Loratadine) 10 Mg Tablet 1 Tab PO DAILY PRN Coumadin (Warfarin Sodium) 6 Mg Tablet 1.5 Tab PO FR,MO Coumadin (Warfarin Sodium) 6 Mg Tablet 6 Mg PO ,,,SA,DUNCAN Klor-Con M20 (Potassium Chloride) 20 Meq Tab.er.prt 40 Meq PO QID Acetaminophen 500 Mg Tablet 1 Tab PO PRN Q6HRS PRN Mucinex Dm Er 600-30 Mg Tablet (Guaifenesin/Dextromethorphan) 1 Each Tab.er.12h 1 Tab PO PRN Q12HRS Trazodone Hcl 50 Mg Tablet 25 Mg PO HS Propafenone Hcl 150 Mg Tablet 150 Mg PO BID Systane 0.3-0.4% Eye Drops (Propylene Glycol/Peg 400/Pf) 1 Each Droperette 1 Each OP DAILY Xanax (Alprazolam) 0.25 Mg Tablet 1 Tab PO PRN BID PRN Biotin 1 Mg Capsule 1,000 Mg PO BID [lutein] 1 Tab BID [Iron ] 1 Tab DAILY Aldactone (Spironolactone) 25 Mg Tablet 1 Tab PO BID Omeprazole 40 Mg Capsule.dr 40 Mg PO DAILY Tramadol Hcl 50 Mg Tablet 50 Mg PO PRN Q6HRS PRN Fish Oil 1,000 Mg Softgel ([place]-3 Fatty Acids/Fish Oil) 1 Each Capsule 1 Each PO DAILY Allopurinol 100 Mg Tablet 100 Mg PO DAILY Paxil (Paroxetine Hcl) 40 Mg Tablet 20 Mg PO DAILY Levothyroxine Sodium 100 Mcg Tablet 100 Mcg PO DAILY Allergies Allergies: Coded Allergies: adhesive (Verified Allergy, Intermediate, "Breaks out", 04/02/16) Pt states, "tape and band-aids." albuterol (Verified Allergy, Intermediate, "CAN'T BREATHE", 04/02/16) codeine (Verified Allergy, Intermediate, "Breaks out.", 04/02/16) oxycodone (Verified Allergy, Intermediate, Rash, 04/02/16) duloxetine (Verified Adverse Reaction, Intermediate, edema, 04/02/16) pregabalin (Verified Adverse Reaction, Intermediate, edema, 04/02/16) Vitals VITALS Vital Signs Date Time Temp Pulse Resp B/P (MAP) Pulse Ox O2 Delivery O2 Flow Rate FiO2 06/26/17 15:08 99 Room Air 06/26/17 15:00 98.2 89 19 95/50 (65) 98.2 Labs Labs Laboratory Tests Test 06/24/17 18:00 06/25/17 06:15 06/25/17 11:50 06/25/17 18:00 Sodium Level 133 mmol/L (136-145) 137 mmol/L (136-145) 137 mmol/L (136-145) 134 mmol/L (136-145) Potassium Level 2.4 mmol/L (3.5-5.1) 3.8 mmol/L (3.5-5.1) 3.7 mmol/L (3.5-5.1) 3.4 mmol/L (3.5-5.1) Chloride Level 89 mmol/L (98-107) 96 mmol/L (98-107) 98 mmol/L (98-107) 96 mmol/L (98-107) Carbon Dioxide Level 39 mmol/L (21-32) 37 mmol/L (21-32) 36 mmol/L (21-32) 33 mmol/L (21-32) Anion Gap 5 (6-14) 4 (6-14) 3 (6-14) 5 (6-14) Blood Urea Nitrogen 62 mg/dL (7-20) 48 mg/dL (7-20) 48 mg/dL (7-20) 46 mg/dL (7-20) Creatinine 1.6 mg/dL (0.6-1.0) 1.2 mg/dL (0.6-1.0) 1.3 mg/dL (0.6-1.0) 2.2 mg/dL (0.6-1.0) Estimated GFR (Cockcroft-Gault) 31.3 43.7 39.8 21.7 Glucose Level 231 mg/dL (70-99) 83 mg/dL (70-99) 137 mg/dL (70-99) 140 mg/dL (70-99) Calcium Level 8.6 mg/dL (8.5-10.1) 8.1 mg/dL (8.5-10.1) 8.0 mg/dL (8.5-10.1) 7.7 mg/dL (8.5-10.1) White Blood Count 7.2 x10^3/uL (4.0-11.0) Red Blood Count 2.98 x10^6/uL (3.50-5.40) Hemoglobin 10.6 g/dL (12.0-15.5) Hematocrit 31.1 % (36.0-47.0) Mean Corpuscular Volume 104 fL (79-100) Mean Corpuscular Hemoglobin 36 pg (25-35) Mean Corpuscular Hemoglobin Concent 34 g/dL (31-37) Red Cell Distribution Width 16.0 % (11.5-14.5) Platelet Count 141 x10^3/uL (140-400) Neutrophils (%) (Auto) 80 % (31-73) Lymphocytes (%) (Auto) 14 % (24-48) Monocytes (%) (Auto) 6 % (0-9) Eosinophils (%) (Auto) 0 % (0-3) Basophils (%) (Auto) 0 % (0-3) Neutrophils # (Auto) 5.8 x10^3uL (1.8-7.7) Lymphocytes # (Auto) 1.0 x10^3/uL (1.0-4.8) Monocytes # (Auto) 0.4 x10^3/uL (0.0-1.1) Eosinophils # (Auto) 0.0 x10^3/uL (0.0-0.7) Basophils # (Auto) 0.0 x10^3/uL (0.0-0.2) Prothrombin Time 15.2 SEC (11.7-14.0) Prothromb Time International Ratio 1.3 (0.8-1.1) BUN/Creatinine Ratio 40 (6-20) Phosphorus Level 2.7 mg/dL (2.6-4.7) Magnesium Level 1.8 mg/dL (1.8-2.4) Total Bilirubin 0.9 mg/dL (0.2-1.0) Aspartate Amino Transf (AST/SGOT) 30 U/L (15-37) Alanine Aminotransferase (ALT/SGPT) 25 U/L (14-59) Alkaline Phosphatase 56 U/L (46-116) Total Protein 5.9 g/dL (6.4-8.2) Albumin 2.9 g/dL (3.4-5.0) Albumin/Globulin Ratio 1.0 (1.0-1.7) Test 06/26/17 04:30 06/26/17 11:45 Prothrombin Time 12.9 SEC (11.7-14.0) Prothromb Time International Ratio 1.0 (0.8-1.1) Sodium Level 138 mmol/L (136-145) 135 mmol/L (136-145) Potassium Level 2.7 mmol/L (3.5-5.1) 4.0 mmol/L (3.5-5.1) Chloride Level 97 mmol/L (98-107) 99 mmol/L (98-107) Carbon Dioxide Level 36 mmol/L (21-32) 35 mmol/L (21-32) Anion Gap 5 (6-14) 1 (6-14) Blood Urea Nitrogen 39 mg/dL (7-20) 37 mg/dL (7-20) Creatinine 1.5 mg/dL (0.6-1.0) 1.3 mg/dL (0.6-1.0) Estimated GFR (Cockcroft-Gault) 33.8 39.8 Glucose Level 78 mg/dL (70-99) 93 mg/dL (70-99) Calcium Level 8.6 mg/dL (8.5-10.1) 7.9 mg/dL (8.5-10.1) Phosphorus Level 2.3 mg/dL (2.6-4.7) Magnesium Level 1.9 mg/dL (1.8-2.4) Albumin 2.9 g/dL (3.4-5.0) Laboratory Tests Test 06/25/17 18:00 06/26/17 04:30 06/26/17 11:45 Sodium Level 134 mmol/L (136-145) 138 mmol/L (136-145) 135 mmol/L (136-145) Potassium Level 3.4 mmol/L (3.5-5.1) 2.7 mmol/L (3.5-5.1) 4.0 mmol/L (3.5-5.1) Chloride Level 96 mmol/L (98-107) 97 mmol/L (98-107) 99 mmol/L (98-107) Carbon Dioxide Level 33 mmol/L (21-32) 36 mmol/L (21-32) 35 mmol/L (21-32) Anion Gap 5 (6-14) 5 (6-14) 1 (6-14) Blood Urea Nitrogen 46 mg/dL (7-20) 39 mg/dL (7-20) 37 mg/dL (7-20) Creatinine 2.2 mg/dL (0.6-1.0) 1.5 mg/dL (0.6-1.0) 1.3 mg/dL (0.6-1.0) Estimated GFR (Cockcroft-Gault) 21.7 33.8 39.8 Glucose Level 140 mg/dL (70-99) 78 mg/dL (70-99) 93 mg/dL (70-99) Calcium Level 7.7 mg/dL (8.5-10.1) 8.6 mg/dL (8.5-10.1) 7.9 mg/dL (8.5-10.1) Prothrombin Time 12.9 SEC (11.7-14.0) Prothromb Time International Ratio 1.0 (0.8-1.1) Phosphorus Level 2.3 mg/dL (2.6-4.7) Magnesium Level 1.9 mg/dL (1.8-2.4) Albumin 2.9 g/dL (3.4-5.0) YASMANY AVALOS MD Jun 26, 2017 17:01
[2017-06-26 19:03] VITALS: BP 102/62
[2017-06-26] MEDS: traZODone 50 MG TABLET. PO SCH (20:48)
[2017-06-26 21:59] LABS: CALCIUM 7.6 mg/dL (8.5-10.1); CREATININE 1.2 mg/dL (0.6-1.0); GFR 43.7
[2017-06-26 23:06] VITALS: BP 93/56
[2017-06-27] MEDS: traMADol 50 MG TABLET PO PRN ×2 (02:41→21:12)
[2017-06-27 03:05] VITALS: BP 95/57
[2017-06-27 05:15] LABS: INR 1.3 (0.8-1.1); PROTHROMBIN TIME PATIENT 15.7 SEC (11.7-14.0)
[2017-06-27 05:42] LABS: ALBUMIN 2.5 g/dL (3.4-5.0); CALCIUM 8.2 mg/dL (8.5-10.1); CREATININE 1.1 mg/dL (0.6-1.0); GFR 48.3; PHOSPHORUS 2.2 mg/dL (2.6-4.7)
[2017-06-27 05:47] LABS: POTASSIUM 2.7 mmol/L (3.5-5.1)
[2017-06-27 07:30] VITALS: BP 91/51
[2017-06-27] MEDS: LEVOTHYROXINE 100 MCG TABLET PO SCH (08:27)
[2017-06-27] MEDS: CALCIUM CARB/VIT D3 500/200 TABLET. PO SCH ×2 (08:27→16:53)
[2017-06-27] MEDS: FERROUS SULFATE 325 MG TABLET. PO SCH (08:27)
[2017-06-27] MEDS: OMEGA-3 FATTY ACIDS/FISH OIL 1,000 MG CAPSULE. PO SCH (08:27)
[2017-06-27] MEDS: PANTOPRAZOLE 40 MG TABLET.DR. PO SCH (08:28)
[2017-06-27] MEDS: ACETAMINOPHEN 500 MG TABLET PO PRN ×2 (08:28→16:53)
[2017-06-27] MEDS: ALPRAZolam 0.25 MG TABLET PO PRN ×2 (08:28→21:11)
[2017-06-27] MEDS: ALLOPURINOL 100 MG TABLET. PO SCH (08:29)
[2017-06-27] MEDS: MULTIVITAMIN I-VITE TABLET. PO SCH ×2 (08:29→21:11)
[2017-06-27] MEDS: POTASSIUM CHLORIDE 20 MEQ TABLET.ER. PO SCH ×3 (08:29→16:54)
[2017-06-27] MEDS: HYDROXYCHLOROQUINE 200 MG TABLET PO SCH (08:30)
[2017-06-27] MEDS: PARoxetine 20 MG TABLET PO SCH (08:32)
[2017-06-27] MEDS: ENOXAPARIN 30 MG/0.3 ML SYRINGE. SQ SCH (08:33)
[2017-06-27] MEDS: POLYVINYL ALCOHOL 1.4% OPHTH SOLUTION 15ML BOTTLE. OU SCH (08:33)
[2017-06-27] MEDS: PROPAFENONE 150 MG TABLET. PO SCH ×2 (09:00→21:13)
[2017-06-27 10:54] VITALS: BP 96/54
--- NOTE | 2017-06-27 13:16 | PDOC ---
PROGRESS NOTES Chief Complaint Chief Complaint FTT Uremia ASSESSMENT AND PLAN: 1. Weakness, shortness breath, nausea, abdominal pain and generalized debility : improving. OT/PT eval for rehab 2. AL/uremia: 2/2 dehydration. creat at baseline, BUN still quite elevated. monitor closely off fluids or lasix 3. CHF: chronic systolic (echo 06/24 with EF 40%, mod aortic stenosis/regurg). Dr Ross following. ? appropriate home lasix dose (previously on 80 bid ) 4. Hyponatremia: resolved 5. Hyperkalemia, now hypokalemia: replete aggressively 7. Hypopcalcemia: replete, check Vit D level. 8. Toe pain (corn): consult Dr Stephens 9. Dispo: transfer to Med/Tele floor. History of Present Illness History of Present Illness breathing ok. no new issues Vitals Vitals Vital Signs Date Time Temp Pulse Resp B/P (MAP) Pulse Ox O2 Delivery O2 Flow Rate FiO2 06/27/17 10:54 97.5 76 18 96/54 (68) 98 Room Air 97.5 Physical Exam General: Alert, Oriented X3, Cooperative, No acute distress Heart: Regular rate, Normal S1, Normal S2, Other (no change in diastolic murmur ) Lungs: Clear Abdomen: Normal bowel sounds, Soft, No tenderness Extremities: No edema Skin: No rashes, No significant lesion Labs LABS Laboratory Tests Test 06/26/17 21:30 06/27/17 03:30 Sodium Level 135 mmol/L (136-145) 136 mmol/L (136-145) Potassium Level 3.0 mmol/L (3.5-5.1) 2.7 mmol/L (3.5-5.1) Chloride Level 97 mmol/L (98-107) 97 mmol/L (98-107) Carbon Dioxide Level 35 mmol/L (21-32) 33 mmol/L (21-32) Anion Gap 3 (6-14) 6 (6-14) Blood Urea Nitrogen 45 mg/dL (7-20) 37 mg/dL (7-20) Creatinine 1.2 mg/dL (0.6-1.0) 1.1 mg/dL (0.6-1.0) Estimated GFR (Cockcroft-Gault) 43.7 48.3 Glucose Level 83 mg/dL (70-99) 75 mg/dL (70-99) Calcium Level 7.6 mg/dL (8.5-10.1) 8.2 mg/dL (8.5-10.1) Ionized Calcium 1.05 mmol/L (1.13-1.32) Creatine Kinase 53 U/L (26-192) Thyroid Stimulating Hormone (TSH) 3.785 uIU/mL (0.358-3.74) Prothrombin Time 15.7 SEC (11.7-14.0) Prothromb Time International Ratio 1.3 (0.8-1.1) Phosphorus Level 2.2 mg/dL (2.6-4.7) Albumin 2.5 g/dL (3.4-5.0) Nutrition Consultation Dietary Evaluation: Recommendations by RD: Dietary education by RD Comments: po intake improves with food preferences continue with food preferences/ pt calling dietary for foods she likes Expected Outcomes/Goals: to meet > 50% est nutr needs- met, goal ongoing Interpretation of weight loss: >5% in 1 month Malnutrition Findings: Body Fat Depletion (Non Severe: Mild Depletion Weight Status: Appropriate AMBROCIO MONTILLA MD Jun 27, 2017 13:16
[2017-06-27 14:21] VITALS: BP 91/55
--- NOTE | 2017-06-27 14:55 | PDOC ---
PROGRESS NOTES Assessment Assessment Feeling of tremors or shaking in body. Left acoustic neuroma. Hypokalemia, K+ 2.7 Generalized weakness x 5 days. AFib CHF TIA HLD Hypothyroidism Left side lung cancer s/p lobectomy. Pacemaker placement. RECOMMENDATIONS/PLAN: EEG. Treat medical diseases. No MRI due to pacemaker. OT/PT. HISTORY OF THE PRESENT ILLNESS: 76-y-old female patient with above medical diseases and left side lung cancer s/p lobectomy has been having symptoms of generalized weakness for 5 days before coming to the ER of [facility]. She also complained episodic tremors or shaking movements in her body lasted briefly. No further d=feeling of tremor or shaking sense inside the body so far. Past Medical History Cardiovascular: AFIB, CHF, Hyperlipidemia CENTRAL NERVOUS SYSTEM: TIA GI: GERD Heme/Onc: Anemia NOS, Cancer Psych: Anxiety, Depression Musculoskeletal: Osteoarthritis, Stiffness Rheumatologic: Gout, Rheumatoid arthritis Endocrine: Hypothyroidism Past Surgical History Pacemaker Cholecystectomy Family History Cancer Social History ALCOHOL: none Drugs: None ALLERGY: Reviewed. MEDICATIONS: Refer to MAR REVIEW OF SYSTEMS: Constitutional: No malnutrition, cachexia. Head: No traumatic brain or head injury. Skin: No edema, or rash. Ear: No infection. Eyes: No vision loss or color blindness. Nose: No bleeding or purulent discharges. Hearing: Hearing decrease. Neck: No injury. Breast: No history of cancer, masses,or discharges. Cardiac: Pacemaker Placement Pulmonary: left lung cancer s/o lobectomy. GI: No GI ulcer, GI bleeding. Urinary/genital: UTI. Endocrinologic: No cousin face, craniofacial dysmorphism, polydactyly, goiter, Diabetes Mellitus, hypothyroidism, obesity, morbid obesity. Skeletomuscular: Generalized weakness. Neurological: see HP. Psychiatric: Denies drug use/abuse. Otherwise, not -pgiex review of systems. PHYSICAL EXAMINATION: General appearance is in subacute distress. HEENT: Normocephalic and nontraumatic. Eyes, nose, ears, and throat are unremarkable. Neck is supple. No lymphadenopathy. No bruits are heard over the carotid artery. No crepitus. Cardiovascular: S1, S2, regular rate and rhythm. Pulmonary: Clear to auscultation bilaterally. Abdomen: Bowel sounds are positive. Abdomen is soft, nontender, and nondistended. Extremities: No rash, lesions, or edema. No restriction of range of motion NEUROLOGICAL EXAMINATION: Awake. Oriented to place and person but not fully to time. PERRL. EOMI. CN: no focal findings. Muscle tone: within normal. Muscle strength: 4 DTR: 2- Plantar reflex: Flexor response bilaterally Gait: not examined in bed. Sensory exam: no abnormal findings. No acute cerebellar signs elicited. F-T-N test fine. No tremors in hand or body. Objective Objective Vital Signs Date Time Temp Pulse Resp B/P (MAP) Pulse Ox O2 Delivery O2 Flow Rate FiO2 06/27/17 14:21 98.0 77 19 91/55 (67) 99 Room Air 98.0 Intake and Output 06/27/17 07:00 Intake Total 700 ml Output Total 300 ml Balance 400 ml Intake Oral 700 ml Output Urine Total 300 ml # Voids 6 # Bowel Movements 1 Vitals Signs Vitals VS - Last 72 Hours, by Label Date Time Temp Pulse Resp B/P (MAP) Pulse Ox O2 Delivery O2 Flow Rate FiO2 06/27/17 14:21 98.0 77 19 91/55 (67) 99 Room Air 98.0 06/27/17 10:54 97.5 76 18 96/54 (68) 98 Room Air 97.5 06/27/17 09:00 66 91/51 06/27/17 08:20 Room Air 06/27/17 07:30 98.1 66 18 91/51 (64) 96 Room Air 98.1 06/27/17 03:05 98.8 76 18 95/57 (70) 98 Room Air 98.8 06/26/17 23:06 99.2 86 16 93/56 (68) 96 Room Air 99.2 06/26/17 20:49 89 102/62 06/26/17 19:25 Room Air 06/26/17 19:03 99.3 89 18 102/62 (75) 100 Room Air 99.3 06/26/17 15:08 99 Room Air 06/26/17 15:00 98.2 89 19 95/50 (65) 100 Room Air 98.2 06/26/17 13:34 99 Room Air 06/26/17 11:00 97.8 77 19 86/48 (61) 99 Room Air 97.8 06/26/17 08:22 74 110/54 06/26/17 08:00 Room Air 06/26/17 07:00 98.0 74 19 100/53 (69) 100 Room Air 98.0 Laboratory Laboratory Laboratory Tests Test 06/26/17 21:30 06/27/17 03:30 Sodium Level 135 mmol/L (136-145) 136 mmol/L (136-145) Potassium Level 3.0 mmol/L (3.5-5.1) 2.7 mmol/L (3.5-5.1) Chloride Level 97 mmol/L (98-107) 97 mmol/L (98-107) Carbon Dioxide Level 35 mmol/L (21-32) 33 mmol/L (21-32) Anion Gap 3 (6-14) 6 (6-14) Blood Urea Nitrogen 45 mg/dL (7-20) 37 mg/dL (7-20) Creatinine 1.2 mg/dL (0.6-1.0) 1.1 mg/dL (0.6-1.0) Estimated GFR (Cockcroft-Gault) 43.7 48.3 Glucose Level 83 mg/dL (70-99) 75 mg/dL (70-99) Calcium Level 7.6 mg/dL (8.5-10.1) 8.2 mg/dL (8.5-10.1) Ionized Calcium 1.05 mmol/L (1.13-1.32) Creatine Kinase 53 U/L (26-192) Thyroid Stimulating Hormone (TSH) 3.785 uIU/mL (0.358-3.74) Prothrombin Time 15.7 SEC (11.7-14.0) Prothromb Time International Ratio 1.3 (0.8-1.1) Phosphorus Level 2.2 mg/dL (2.6-4.7) Albumin 2.5 g/dL (3.4-5.0) Medication Medications Current Medications Potassium Chloride (Klor-Con) 40 meq TIDWMEALS PO Last administered on 12:25; Start 06/27/17 at 08:00; Stop 06/27/17 at 18:00 Warfarin Sodium (Coumadin) 8 mg 1X WARF ONCE PO Last administered on 06/26/17 17:16; Start 06/26/17 at 16:00; Stop 06/26/17 at 16:01; Status DC Warfarin Sodium (Coumadin) 9 mg 1X WARF ONCE PO ; Start 06/27/17 at 16:00; Stop 06/27/17 at 16:01 Comment Review of Relevant I have reviewed the following items leila (where applicable) has been applied. YASMANY AVALOS MD Jun 27, 2017 14:55
[2017-06-27] MEDS ORDERED: WARFARIN 3 MG TABLET. PO ONE (16:00)
--- NOTE | 2017-06-27 16:13 | PDOC ---
PROGRESS NOTES Subjective Subjective Pt complaining of increased fatigue today. Pt also complaining of shakiness. Pt is feeling comfortable otherwise and denies any vision changes, dizziness, loss of balance, or muscle weakness or aches. Objective Objective Gen: pt sitting comfortably in her chair; no acute distress or pain. Cooperative and conversational. HEENT: atraumatic Neck: central line placement site is intact, with no erythema warmth or swelling ; no JVD Card: RRR with both diastolic and systolic murmur auscultated Resp: CTAB no rhonchi/rales/wheezes Neuro: pt awake, alert and oriented. Vital Signs Date Time Temp Pulse Resp B/P (MAP) Pulse Ox O2 Delivery O2 Flow Rate FiO2 06/27/17 14:21 98.0 77 19 91/55 (67) 99 Room Air 98.0 Intake and Output 06/27/17 07:00 Intake Total 700 ml Output Total 300 ml Balance 400 ml Intake Oral 700 ml Output Urine Total 300 ml # Voids 6 # Bowel Movements 1 Assessment Assessment Problems Medical Problems: (1) Hyperkalemia Status: Acute (2) Renal failure Status: Acute Pt's potassium fell again to 2.7. In response to this drop, Spironolactone will be re-initiated to pt's medical regimen. Pt to stay in the hospital until her potassium levels become stable. Comment Review of Relevant I have reviewed the following items leila (where applicable) has been applied. Labs Laboratory Tests Test 06/25/17 18:00 06/26/17 04:30 06/26/17 11:45 06/26/17 21:30 Sodium Level 134 mmol/L (136-145) 138 mmol/L (136-145) 135 mmol/L (136-145) 135 mmol/L (136-145) Potassium Level 3.4 mmol/L (3.5-5.1) 2.7 mmol/L (3.5-5.1) 4.0 mmol/L (3.5-5.1) 3.0 mmol/L (3.5-5.1) Chloride Level 96 mmol/L (98-107) 97 mmol/L (98-107) 99 mmol/L (98-107) 97 mmol/L (98-107) Carbon Dioxide Level 33 mmol/L (21-32) 36 mmol/L (21-32) 35 mmol/L (21-32) 35 mmol/L (21-32) Anion Gap 5 (6-14) 5 (6-14) 1 (6-14) 3 (6-14) Blood Urea Nitrogen 46 mg/dL (7-20) 39 mg/dL (7-20) 37 mg/dL (7-20) 45 mg/dL (7-20) Creatinine 2.2 mg/dL (0.6-1.0) 1.5 mg/dL (0.6-1.0) 1.3 mg/dL (0.6-1.0) 1.2 mg/dL (0.6-1.0) Estimated GFR (Cockcroft-Gault) 21.7 33.8 39.8 43.7 Glucose Level 140 mg/dL (70-99) 78 mg/dL (70-99) 93 mg/dL (70-99) 83 mg/dL (70-99) Calcium Level 7.7 mg/dL (8.5-10.1) 8.6 mg/dL (8.5-10.1) 7.9 mg/dL (8.5-10.1) 7.6 mg/dL (8.5-10.1) Prothrombin Time 12.9 SEC (11.7-14.0) Prothromb Time International Ratio 1.0 (0.8-1.1) Phosphorus Level 2.3 mg/dL (2.6-4.7) Magnesium Level 1.9 mg/dL (1.8-2.4) Albumin 2.9 g/dL (3.4-5.0) Ionized Calcium 1.05 mmol/L (1.13-1.32) Creatine Kinase 53 U/L (26-192) Thyroid Stimulating Hormone (TSH) 3.785 uIU/mL (0.358-3.74) Test 06/27/17 03:30 Prothrombin Time 15.7 SEC (11.7-14.0) Prothromb Time International Ratio 1.3 (0.8-1.1) Sodium Level 136 mmol/L (136-145) Potassium Level 2.7 mmol/L (3.5-5.1) Chloride Level 97 mmol/L (98-107) Carbon Dioxide Level 33 mmol/L (21-32) Anion Gap 6 (6-14) Blood Urea Nitrogen 37 mg/dL (7-20) Creatinine 1.1 mg/dL (0.6-1.0) Estimated GFR (Cockcroft-Gault) 48.3 Glucose Level 75 mg/dL (70-99) Calcium Level 8.2 mg/dL (8.5-10.1) Phosphorus Level 2.2 mg/dL (2.6-4.7) Albumin 2.5 g/dL (3.4-5.0) Laboratory Tests Test 06/26/17 21:30 06/27/17 03:30 Sodium Level 135 mmol/L (136-145) 136 mmol/L (136-145) Potassium Level 3.0 mmol/L (3.5-5.1) 2.7 mmol/L (3.5-5.1) Chloride Level 97 mmol/L (98-107) 97 mmol/L (98-107) Carbon Dioxide Level 35 mmol/L (21-32) 33 mmol/L (21-32) Anion Gap 3 (6-14) 6 (6-14) Blood Urea Nitrogen 45 mg/dL (7-20) 37 mg/dL (7-20) Creatinine 1.2 mg/dL (0.6-1.0) 1.1 mg/dL (0.6-1.0) Estimated GFR (Cockcroft-Gault) 43.7 48.3 Glucose Level 83 mg/dL (70-99) 75 mg/dL (70-99) Calcium Level 7.6 mg/dL (8.5-10.1) 8.2 mg/dL (8.5-10.1) Ionized Calcium 1.05 mmol/L (1.13-1.32) Creatine Kinase 53 U/L (26-192) Thyroid Stimulating Hormone (TSH) 3.785 uIU/mL (0.358-3.74) Prothrombin Time 15.7 SEC (11.7-14.0) Prothromb Time International Ratio 1.3 (0.8-1.1) Phosphorus Level 2.2 mg/dL (2.6-4.7) Albumin 2.5 g/dL (3.4-5.0) Medications Current Medications Acetaminophen (Tylenol) 500 mg PRN Q6HRS PRN PO MILD PAIN / TEMP Last administered on 06/27/17 08:28; Start 06/23/17 at 20:45 Allopurinol (Zyloprim) 100 mg DAILY PO Last administered on 06/27/17 08:29; Start 06/24/17 at 09:00 Alprazolam (Xanax) 0.25 mg PRN BID PRN PO ANXIETY / AGITATION Last administered on 06/27/17 08:28; Start 06/23/17 at 20:45 Furosemide (Lasix) 80 mg BID94 PO Last administered on 06/24/17 08:25; Start 06/24/17 at 09:00; Stop 06/24/17 at 11:09; Status DC Guaifenesin (MUCINEX ER with DM) 1 tab PRN Q12HRS PRN PO MUCOUS/CONGESTION; Start 06/23/17 at 20:45 Levothyroxine Sodium (Synthroid) 100 mcg DAILY07 PO ; Start 06/24/17 at 07:00; Stop 06/24/17 at 07:00; Status DC Potassium Chloride (Klor-Con) 40 meq QID PO ; Start 06/23/17 at 21:00; Stop at 22:13; Status DC Propafenone HCl (Rythmol) 150 mg BID PO Last administered on 06/26/17 20:49; Start 06/23/17 at 21:00 Spironolactone (Aldactone) 25 mg BID94 PO Last administered on 06/26/17 08:20; Start 06/24/17 at 09:00; Stop 06/26/17 at 12:34; Status DC Tramadol HCl (Ultram) 50 mg PRN Q6HRS PRN PO PAIN Last administered on 02:41; Start 06/23/17 at 20:45 Trazodone HCl (Desyrel) 25 mg HS PO Last administered on 06/26/17 20:48; Start 06/23/17 at 21:00 Warfarin Sodium (Coumadin) 9 mg DAILY16 PO ; Start 06/24/17 at 16:00; Stop 06/24 at 16:00; Status DC Non-Formulary Medication 1,000 mg BID PO ; Start 06/23/17 at 21:00; Stop at 21:00; Status DC Calcium/Vitamin D (Oscal D 500mg/ 200uts) 1 tab BIDAFTMEAL PO Last administered on 06/27/17 08:27; Start 06/24/17 at 09:00 Cetirizine HCl (ZyrTEC) 10 mg PRN DAILY PRN PO ALLERGIES; Start 06/24/17 at 09: 00 Fish Oil (Fish Oil) 1,000 mg DAILY PO Last administered on 06/27/17 08:27; Start 06/24/17 at 09:00 Pantoprazole Sodium (Protonix) 40 mg DAILYAC PO Last administered on 06/27/17 08:28; Start 06/24/17 at 07:30 Paroxetine HCl (Paxil) 20 mg DAILY PO Last administered on 06/27/17 08:32; Start 06/24/17 at 09:00 Artificial Tears (Artificial Tears) 1 drop DAILY OU Last administered on 08:24; Start 06/24/17 at 09:00 Hydroxychloroquine Sulfate (Plaquenil) 200 mg DAILY08 PO Last administered on 08:30; Start 06/24/17 at 09:00 Ferrous Sulfate (Feosol) 325 mg DAILYWBKFT PO Last administered on 06/27/17 08: 27; Start 06/24/17 at 08:00 Multivitamins/ Minerals (I-Cristiano) 1 tab BID PO Last administered on 06/27/17 08: 29; Start 06/24/17 at 09:00 Methotrexate (Rheumatrex) 17.5 mg We@0900 PO Last administered on 06/26/17 08: 38; Start 06/26/17 at 09:00 Warfarin Sodium (Coumadin Per Pharmacy) 1 each PRN DAILY PRN MC SEE COMMENTS Last administered on 06/27/17 09:58; Start 06/23/17 at 21:00 Calcium Gluconate (Calcium Gluconate) 1,000 mg 1X ONCE IVP Last administered on 06/23/17 21:42; Start 06/23/17 at 21:30; Stop 06/23/17 at 21:31; Status DC Dextrose (Dextrose 50%-Water Syringe) 25 gm 1X ONCE IV Last administered on 22:00; Start 06/23/17 at 21:30; Stop 06/23/17 at 21:31; Status DC Insulin Human Regular (NovoLIN R VIAL) 10 unit 1X ONCE IV Last administered on 06/23/17 21:58; Start 06/23/17 at 21:30; Stop 06/23/17 at 21:31; Status DC Sodium Bicarbonate 50 meq 1X ONCE IV Last administered on 06/23/17 21:49; Start 06/23/17 at 21:45; Stop 06/23/17 at 21:46; Status DC Sodium Bicarbonate 150 meq/Dextrose 1,150 ml @ 100 mls/hr [id number] IV Last administered on 06/23/17 22:39; Start 06/23/17 at 22:30; Stop 06/24/17 at 11:09 ; Status DC Sodium Polystyrene Sulfonate (Kayexalate) 30 gm 1X ONCE PO Last administered on 06/23/17 22:37; Start 06/23/17 at 22:30; Stop 06/23/17 at 22:31; Status DC Sodium Polystyrene Sulfonate (Kayexalate) 15 gm 1X PRN PRN PO K+ >6 4 HOURS AFTER INITIAL DOSE; Start 06/23/17 at 22:45; Stop 06/25/17 at 08:47; Status DC Fentanyl Citrate (Fentanyl 2ml Vial) 50 mcg PRN Q2HR PRN IV PAIN; Start at 23:30; Stop 06/24/17 at 23:29; Status DC Acetaminophen (Tylenol) 650 mg PRN Q4HRS PRN PO FEVER Last administered on 06/24 20:27; Start 06/23/17 at 23:30; Stop 06/24/17 at 23:29; Status DC Levothyroxine Sodium (Synthroid) 100 mcg DAILY08 PO Last administered on 08:27; Start 06/24/17 at 08:00 Phytonadione (Mephyton) 2.5 mg 1X ONCE PO Last administered on 06/24/17 06:06 ; Start 06/24/17 at 06:00; Stop 06/24/17 at 06:01; Status DC Potassium Chloride (Klor-Con) 40 meq 1X ONCE PO Last administered on 06:06; Start 06/24/17 at 06:00; Stop 06/24/17 at 06:01; Status DC Potassium Chloride (Klor-Con) 40 meq 1X ONCE PO Last administered on 09:43; Start 06/24/17 at 09:45; Stop 06/24/17 at 09:46; Status DC Potassium Chloride (Klor-Con) 40 meq 1X ONCE PO Last administered on 15:31; Start 06/24/17 at 14:00; Stop 06/24/17 at 14:01; Status DC Warfarin Sodium (Coumadin - No Dose Today) 1 each 1X WARF ONCE MC Last administered on 06/24/17 10:19; Start 06/24/17 at 16:00; Stop 06/24/17 at 16:01 ; Status DC Magnesium Sulfate/ Dextrose 50 ml @ 25 mls/hr PRN DAILY PRN IV for Mag < 1.7 on am labs; Start 06/24/17 at 11:00 Potassium Chloride 40 meq/ Sodium Chloride 1,020 ml @ 75 mls/hr [id number] IV Last administered on 06/25/17 03:22; Start 06/24/17 at 12:00; Stop 06/25/17 at 08 :47; Status DC Potassium Chloride 50 ml @ 25 mls/hr Q2HR IV Last administered on 06/25/17 03: 21; Start 06/24/17 at 20:00; Stop 06/25/17 at 07:59; Status DC Enoxaparin Sodium (Lovenox Per Pharmacy Prophylaxis Dosing) 1 each PRN DAILY PRN MC SEE COMMENTS; Start 06/25/17 at 09:00 Enoxaparin Sodium (Lovenox 30mg Syringe) 30 mg Q24H SQ Last administered on 06/27 08:33; Start 06/25/17 at 09:00 Warfarin Sodium (Coumadin) 6 mg 1X WARF ONCE PO Last administered on 06/25/17 17:08; Start 06/25/17 at 16:00; Stop 06/25/17 at 16:01; Status DC Potassium Chloride (Klor-Con) 20 meq 1X ONCE PO Last administered on 06/25/17 21:07; Start 06/25/17 at 20:00; Stop 06/25/17 at 20:01; Status DC Potassium Chloride 100 ml @ 100 mls/hr Q1H IV Last administered on 06/26/17 09 :39; Start 06/26/17 at 05:30; Stop 06/26/17 at 09:29; Status DC Potassium Chloride (Klor-Con) 40 meq 1X ONCE PO Last administered on 06/26/17 09:40; Start 06/26/17 at 09:30; Stop 06/26/17 at 09:33; Status DC Potassium Chloride (Klor-Con) 40 meq 1X ONCE PO Last administered on 06/26/17 11:30; Start 06/26/17 at 11:30; Stop 06/26/17 at 11:31; Status DC Warfarin Sodium (Coumadin) 8 mg 1X WARF ONCE PO Last administered on 06/26/17 17:16; Start 06/26/17 at 16:00; Stop 06/26/17 at 16:01; Status DC Potassium Chloride (Klor-Con) 40 meq TIDWMEALS PO Last administered on 12:25; Start 06/27/17 at 08:00; Stop 06/27/17 at 18:00 Warfarin Sodium (Coumadin) 9 mg 1X WARF ONCE PO ; Start 06/27/17 at 16:00; Stop 06/27/17 at 16:01; Status DC Active Scripts Active Reported Methotrexate (Methotrexate Sodium) 2.5 Mg Tablet 7 Tab PO SATURDAY [hydroxyl-chloroquine] 200 Mg PO DAILY08 Calcium + Vitamin D Tablet (Calcium Carbonate/Vitamin D3) 1 Each Tablet 1 Each PO BID Furosemide 80 Mg Tablet 1 Tab PO BID Claritin (Loratadine) 10 Mg Tablet 1 Tab PO DAILY PRN Coumadin (Warfarin Sodium) 6 Mg Tablet 1.5 Tab PO ,[place] Coumadin (Warfarin Sodium) 6 Mg Tablet 6 Mg PO ,,,SA,DUNCAN Klor-Con M20 (Potassium Chloride) 20 Meq Tab.er.prt 40 Meq PO QID Acetaminophen 500 Mg Tablet 1 Tab PO PRN Q6HRS PRN Mucinex Dm Er 600-30 Mg Tablet (Guaifenesin/Dextromethorphan) 1 Each Tab.er.12h 1 Tab PO PRN Q12HRS Trazodone Hcl 50 Mg Tablet 25 Mg PO HS Propafenone Hcl 150 Mg Tablet 150 Mg PO BID Systane 0.3-0.4% Eye Drops (Propylene Glycol/Peg 400/Pf) 1 Each Droperette 1 Each OP DAILY Xanax (Alprazolam) 0.25 Mg Tablet 1 Tab PO PRN BID PRN Biotin 1 Mg Capsule 1,000 Mg PO BID [lutein] 1 Tab BID [Iron ] 1 Tab DAILY Aldactone (Spironolactone) 25 Mg Tablet 1 Tab PO BID Omeprazole 40 Mg Capsule.dr 40 Mg PO DAILY Tramadol Hcl 50 Mg Tablet 50 Mg PO PRN Q6HRS PRN Fish Oil 1,000 Mg Softgel ([place]-3 Fatty Acids/Fish Oil) 1 Each Capsule 1 Each PO DAILY Allopurinol 100 Mg Tablet 100 Mg PO DAILY Paxil (Paroxetine Hcl) 40 Mg Tablet 20 Mg PO DAILY Levothyroxine Sodium 100 Mcg Tablet 100 Mcg PO DAILY Vitals/I & O Vital Sign - Last 24 Hours 06/26/17 06/26/17 06/26/17 06/26/17 19:03 19:25 20:49 23:06 Temp 99.3 99.2 99.3 99.2 Pulse 89 89 86 Resp 18 16 B/P (MAP) 102/62 (75) 102/62 93/56 (68) Pulse Ox 100 96 O2 Delivery Room Air Room Air Room Air 06/27/17 06/27/17 06/27/17 06/27/17 03:05 07:30 08:20 09:00 Temp 98.8 98.1 98.8 98.1 Pulse 76 66 66 Resp 18 18 B/P (MAP) 95/57 (70) 91/51 (64) 91/51 Pulse Ox 98 96 O2 Delivery Room Air Room Air Room Air 06/27/17 06/27/17 10:54 14:21 Temp 97.5 98.0 97.5 98.0 Pulse 76 77 Resp 18 19 B/P (MAP) 96/54 (68) 91/55 (67) Pulse Ox 98 99 O2 Delivery Room Air Room Air Intake and Output 06/26/17 06/26/17 06/27/17 15:00 23:00 07:00 Intake Total 400 ml 300 ml Output Total 300 ml Balance 100 ml 300 ml Nutrition Consultation Dietary Evaluation: Recommendations by RD: Dietary education by RD Comments: po intake improves with food preferences continue with food preferences/ pt calling dietary for foods she likes Expected Outcomes/Goals: to meet > 50% est nutr needs- met, goal ongoing Interpretation of weight loss: >5% in 1 month Malnutrition Findings: Body Fat Depletion (Non Severe: Mild Depletion Weight Status: Appropriate CJ DIAL MD Jun 27, 2017 16:13
[2017-06-27 19:00] VITALS: BP 102/61
[2017-06-27] MEDS: traZODone 50 MG TABLET. PO SCH (21:11)
[2017-06-27 23:00] VITALS: BP 94/59
[2017-06-28 03:00] VITALS: BP 91/52
[2017-06-28 07:06] LABS: ALBUMIN 2.5 g/dL (3.4-5.0); CALCIUM 8.2 mg/dL (8.5-10.1); CREATININE 1.3 mg/dL (0.6-1.0); GFR 39.8; PHOSPHORUS 2.1 mg/dL (2.6-4.7); POTASSIUM 3.5 mmol/L (3.5-5.1)
[2017-06-28 07:09] LABS: PROTHROMBIN TIME PATIENT 21.6 SEC (11.7-14.0)
[2017-06-28 07:27] VITALS: BP 93/48
[2017-06-28] MEDS: MULTIVITAMIN I-VITE TABLET. PO SCH ×2 (08:46→20:41)
[2017-06-28] MEDS: PARoxetine 20 MG TABLET PO SCH (08:46)
[2017-06-28] MEDS: PANTOPRAZOLE 40 MG TABLET.DR. PO SCH (08:46)
[2017-06-28] MEDS: OMEGA-3 FATTY ACIDS/FISH OIL 1,000 MG CAPSULE. PO SCH (08:46)
[2017-06-28] MEDS: FERROUS SULFATE 325 MG TABLET. PO SCH (08:46)
[2017-06-28] MEDS: HYDROXYCHLOROQUINE 200 MG TABLET PO SCH (08:47)
[2017-06-28] MEDS: PROPAFENONE 150 MG TABLET. PO SCH ×2 (08:47→20:41)
[2017-06-28] MEDS: LEVOTHYROXINE 100 MCG TABLET PO SCH (08:47)
[2017-06-28] MEDS: traMADol 50 MG TABLET PO PRN ×2 (08:47→16:31)
[2017-06-28] MEDS: ALPRAZolam 0.25 MG TABLET PO PRN ×2 (08:50→20:41)
[2017-06-28] MEDS: CALCIUM CARB/VIT D3 500/200 TABLET. PO SCH ×2 (08:50→17:49)
[2017-06-28] MEDS: ALLOPURINOL 100 MG TABLET. PO SCH (08:50)
[2017-06-28] MEDS: ENOXAPARIN 30 MG/0.3 ML SYRINGE. SQ SCH (08:50)
[2017-06-28] MEDS: POLYVINYL ALCOHOL 1.4% OPHTH SOLUTION 15ML BOTTLE. OU SCH (08:51)
--- NOTE | 2017-06-28 09:59 | PDOC ---
PROGRESS NOTES Subjective Subjective Pt states she still feels fatigued but much less fatigued from yesterday. Objective Objective Gen: pt is sitting comfortably in her chair; is pleasant, cooperative, and conversational. HEENT: atraumatic Neck: supple; no JVD Card: RRR; no new heart sounds Resp: CTAB no rhonchi/rales or wheezes Neuro: pt is alert, oriented to person place and time. Vital Signs Date Time Temp Pulse Resp B/P (MAP) Pulse Ox O2 Delivery O2 Flow Rate FiO2 06/28/17 08:47 96 Room Air 06/28/17 08:47 74 93/48 06/28/17 07:27 98.6 18 98.6 Intake and Output 06/28/17 06:59 Intake Total 200 ml Balance 200 ml Intake Oral 200 ml # Voids 5 # Bowel Movements 1 Assessment Assessment Problems Medical Problems: (1) Hyperkalemia Status: Acute (2) Renal failure Status: Acute Pt's potassium has gone back up to 3.5. Pt to be monitored until potassium is consistently stable. Comment Review of Relevant I have reviewed the following items leila (where applicable) has been applied. Labs Laboratory Tests Test 06/26/17 11:45 06/26/17 21:30 06/27/17 03:30 06/28/17 06:20 Sodium Level 135 mmol/L (136-145) 135 mmol/L (136-145) 136 mmol/L (136-145) 138 mmol/L (136-145) Potassium Level 4.0 mmol/L (3.5-5.1) 3.0 mmol/L (3.5-5.1) 2.7 mmol/L (3.5-5.1) 3.5 mmol/L (3.5-5.1) Chloride Level 99 mmol/L (98-107) 97 mmol/L (98-107) 97 mmol/L (98-107) 102 mmol/L (98-107) Carbon Dioxide Level 35 mmol/L (21-32) 35 mmol/L (21-32) 33 mmol/L (21-32) 32 mmol/L (21-32) Anion Gap 1 (6-14) 3 (6-14) 6 (6-14) 4 (6-14) Blood Urea Nitrogen 37 mg/dL (7-20) 45 mg/dL (7-20) 37 mg/dL (7-20) 37 mg/dL (7-20) Creatinine 1.3 mg/dL (0.6-1.0) 1.2 mg/dL (0.6-1.0) 1.1 mg/dL (0.6-1.0) 1.3 mg/dL (0.6-1.0) Estimated GFR (Cockcroft-Gault) 39.8 43.7 48.3 39.8 Glucose Level 93 mg/dL (70-99) 83 mg/dL (70-99) 75 mg/dL (70-99) 85 mg/dL (70-99) Calcium Level 7.9 mg/dL (8.5-10.1) 7.6 mg/dL (8.5-10.1) 8.2 mg/dL (8.5-10.1) 8.2 mg/dL (8.5-10.1) Ionized Calcium 1.05 mmol/L (1.13-1.32) Creatine Kinase 53 U/L (26-192) Thyroid Stimulating Hormone (TSH) 3.785 uIU/mL (0.358-3.74) Prothrombin Time 15.7 SEC (11.7-14.0) 21.6 SEC (11.7-14.0) Prothromb Time International Ratio 1.3 (0.8-1.1) 2.0 (0.8-1.1) Phosphorus Level 2.2 mg/dL (2.6-4.7) 2.1 mg/dL (2.6-4.7) Albumin 2.5 g/dL (3.4-5.0) 2.5 g/dL (3.4-5.0) Laboratory Tests Test 06/28/17 06:20 Prothrombin Time 21.6 SEC (11.7-14.0) Prothromb Time International Ratio 2.0 (0.8-1.1) Sodium Level 138 mmol/L (136-145) Potassium Level 3.5 mmol/L (3.5-5.1) Chloride Level 102 mmol/L (98-107) Carbon Dioxide Level 32 mmol/L (21-32) Anion Gap 4 (6-14) Blood Urea Nitrogen 37 mg/dL (7-20) Creatinine 1.3 mg/dL (0.6-1.0) Estimated GFR (Cockcroft-Gault) 39.8 Glucose Level 85 mg/dL (70-99) Calcium Level 8.2 mg/dL (8.5-10.1) Phosphorus Level 2.1 mg/dL (2.6-4.7) Albumin 2.5 g/dL (3.4-5.0) Medications Current Medications Acetaminophen (Tylenol) 500 mg PRN Q6HRS PRN PO MILD PAIN / TEMP Last administered on 06/27/17 16:53; Start 06/23/17 at 20:45 Allopurinol (Zyloprim) 100 mg DAILY PO Last administered on 06/28/17 08:50; Start 06/24/17 at 09:00 Alprazolam (Xanax) 0.25 mg PRN BID PRN PO ANXIETY / AGITATION Last administered on 06/28/17 08:50; Start 06/23/17 at 20:45 Furosemide (Lasix) 80 mg BID94 PO Last administered on 06/24/17 08:25; Start 06/24/17 at 09:00; Stop 06/24/17 at 11:09; Status DC Guaifenesin (MUCINEX ER with DM) 1 tab PRN Q12HRS PRN PO MUCOUS/CONGESTION; Start 06/23/17 at 20:45 Levothyroxine Sodium (Synthroid) 100 mcg DAILY07 PO ; Start 06/24/17 at 07:00; Stop 06/24/17 at 07:00; Status DC Potassium Chloride (Klor-Con) 40 meq QID PO ; Start 06/23/17 at 21:00; Stop at 22:13; Status DC Propafenone HCl (Rythmol) 150 mg BID PO Last administered on 06/28/17 08:47; Start 06/23/17 at 21:00 Spironolactone (Aldactone) 25 mg BID94 PO Last administered on 06/26/17 08:20; Start 06/24/17 at 09:00; Stop 06/26/17 at 12:34; Status DC Tramadol HCl (Ultram) 50 mg PRN Q6HRS PRN PO PAIN Last administered on 08:47; Start 06/23/17 at 20:45 Trazodone HCl (Desyrel) 25 mg HS PO Last administered on 06/27/17 21:11; Start 06/23/17 at 21:00 Warfarin Sodium (Coumadin) 9 mg DAILY16 PO ; Start 06/24/17 at 16:00; Stop 06/24 at 16:00; Status DC Non-Formulary Medication 1,000 mg BID PO ; Start 06/23/17 at 21:00; Stop at 21:00; Status DC Calcium/Vitamin D (Oscal D 500mg/ 200uts) 1 tab BIDAFTMEAL PO Last administered on 06/28/17 08:50; Start 06/24/17 at 09:00 Cetirizine HCl (ZyrTEC) 10 mg PRN DAILY PRN PO ALLERGIES; Start 06/24/17 at 09: 00 Fish Oil (Fish Oil) 1,000 mg DAILY PO Last administered on 06/28/17 08:46; Start 06/24/17 at 09:00 Pantoprazole Sodium (Protonix) 40 mg DAILYAC PO Last administered on 06/28/17 08:46; Start 06/24/17 at 07:30 Paroxetine HCl (Paxil) 20 mg DAILY PO Last administered on 06/28/17 08:46; Start 06/24/17 at 09:00 Artificial Tears (Artificial Tears) 1 drop DAILY OU Last administered on 08:24; Start 06/24/17 at 09:00 Hydroxychloroquine Sulfate (Plaquenil) 200 mg DAILY08 PO Last administered on 08:47; Start 06/24/17 at 09:00 Ferrous Sulfate (Feosol) 325 mg DAILYWBKFT PO Last administered on 06/28/17 08: 46; Start 06/24/17 at 08:00 Multivitamins/ Minerals (I-Cristiano) 1 tab BID PO Last administered on 06/28/17 08: 46; Start 06/24/17 at 09:00 Methotrexate (Rheumatrex) 17.5 mg We@0900 PO Last administered on 06/26/17 08: 38; Start 06/26/17 at 09:00 Warfarin Sodium (Coumadin Per Pharmacy) 1 each PRN DAILY PRN MC SEE COMMENTS Last administered on 06/27/17 09:58; Start 06/23/17 at 21:00 Calcium Gluconate (Calcium Gluconate) 1,000 mg 1X ONCE IVP Last administered on 06/23/17 21:42; Start 06/23/17 at 21:30; Stop 06/23/17 at 21:31; Status DC Dextrose (Dextrose 50%-Water Syringe) 25 gm 1X ONCE IV Last administered on 22:00; Start 06/23/17 at 21:30; Stop 06/23/17 at 21:31; Status DC Insulin Human Regular (NovoLIN R VIAL) 10 unit 1X ONCE IV Last administered on 06/23/17 21:58; Start 06/23/17 at 21:30; Stop 06/23/17 at 21:31; Status DC Sodium Bicarbonate 50 meq 1X ONCE IV Last administered on 06/23/17 21:49; Start 06/23/17 at 21:45; Stop 06/23/17 at 21:46; Status DC Sodium Bicarbonate 150 meq/Dextrose 1,150 ml @ 100 mls/hr [id number] IV Last administered on 06/23/17 22:39; Start 06/23/17 at 22:30; Stop 06/24/17 at 11:09 ; Status DC Sodium Polystyrene Sulfonate (Kayexalate) 30 gm 1X ONCE PO Last administered on 06/23/17 22:37; Start 06/23/17 at 22:30; Stop 06/23/17 at 22:31; Status DC Sodium Polystyrene Sulfonate (Kayexalate) 15 gm 1X PRN PRN PO K+ >6 4 HOURS AFTER INITIAL DOSE; Start 06/23/17 at 22:45; Stop 06/25/17 at 08:47; Status DC Fentanyl Citrate (Fentanyl 2ml Vial) 50 mcg PRN Q2HR PRN IV PAIN; Start at 23:30; Stop 06/24/17 at 23:29; Status DC Acetaminophen (Tylenol) 650 mg PRN Q4HRS PRN PO FEVER Last administered on 06/24 20:27; Start 06/23/17 at 23:30; Stop 06/24/17 at 23:29; Status DC Levothyroxine Sodium (Synthroid) 100 mcg DAILY08 PO Last administered on 08:47; Start 06/24/17 at 08:00 Phytonadione (Mephyton) 2.5 mg 1X ONCE PO Last administered on 06/24/17 06:06 ; Start 06/24/17 at 06:00; Stop 06/24/17 at 06:01; Status DC Potassium Chloride (Klor-Con) 40 meq 1X ONCE PO Last administered on 06:06; Start 06/24/17 at 06:00; Stop 06/24/17 at 06:01; Status DC Potassium Chloride (Klor-Con) 40 meq 1X ONCE PO Last administered on 09:43; Start 06/24/17 at 09:45; Stop 06/24/17 at 09:46; Status DC Potassium Chloride (Klor-Con) 40 meq 1X ONCE PO Last administered on 15:31; Start 06/24/17 at 14:00; Stop 06/24/17 at 14:01; Status DC Warfarin Sodium (Coumadin - No Dose Today) 1 each 1X WARF ONCE MC Last administered on 06/24/17 10:19; Start 06/24/17 at 16:00; Stop 06/24/17 at 16:01 ; Status DC Magnesium Sulfate/ Dextrose 50 ml @ 25 mls/hr PRN DAILY PRN IV for Mag < 1.7 on am labs; Start 06/24/17 at 11:00 Potassium Chloride 40 meq/ Sodium Chloride 1,020 ml @ 75 mls/hr [id number] IV Last administered on 06/25/17 03:22; Start 06/24/17 at 12:00; Stop 06/25/17 at 08 :47; Status DC Potassium Chloride 50 ml @ 25 mls/hr Q2HR IV Last administered on 06/25/17 03: 21; Start 06/24/17 at 20:00; Stop 06/25/17 at 07:59; Status DC Enoxaparin Sodium (Lovenox Per Pharmacy Prophylaxis Dosing) 1 each PRN DAILY PRN MC SEE COMMENTS; Start 06/25/17 at 09:00 Enoxaparin Sodium (Lovenox 30mg Syringe) 30 mg Q24H SQ Last administered on 06/28 08:50; Start 06/25/17 at 09:00 Warfarin Sodium (Coumadin) 6 mg 1X WARF ONCE PO Last administered on 06/25/17 17:08; Start 06/25/17 at 16:00; Stop 06/25/17 at 16:01; Status DC Potassium Chloride (Klor-Con) 20 meq 1X ONCE PO Last administered on 06/25/17 21:07; Start 06/25/17 at 20:00; Stop 06/25/17 at 20:01; Status DC Potassium Chloride 100 ml @ 100 mls/hr Q1H IV Last administered on 06/26/17 09 :39; Start 06/26/17 at 05:30; Stop 06/26/17 at 09:29; Status DC Potassium Chloride (Klor-Con) 40 meq 1X ONCE PO Last administered on 06/26/17 09:40; Start 06/26/17 at 09:30; Stop 06/26/17 at 09:33; Status DC Potassium Chloride (Klor-Con) 40 meq 1X ONCE PO Last administered on 06/26/17 11:30; Start 06/26/17 at 11:30; Stop 06/26/17 at 11:31; Status DC Warfarin Sodium (Coumadin) 8 mg 1X WARF ONCE PO Last administered on 06/26/17 17:16; Start 06/26/17 at 16:00; Stop 06/26/17 at 16:01; Status DC Potassium Chloride (Klor-Con) 40 meq TIDWMEALS PO Last administered on 16:54; Start 06/27/17 at 08:00; Stop 06/27/17 at 18:00; Status DC Warfarin Sodium (Coumadin) 9 mg 1X WARF ONCE PO Last administered on 06/27/17 16:53; Start 06/27/17 at 16:00; Stop 06/27/17 at 16:01; Status DC Active Scripts Active Reported Methotrexate (Methotrexate Sodium) 2.5 Mg Tablet 7 Tab PO SATURDAY [hydroxyl-chloroquine] 200 Mg PO DAILY08 Calcium + Vitamin D Tablet (Calcium Carbonate/Vitamin D3) 1 Each Tablet 1 Each PO BID Furosemide 80 Mg Tablet 1 Tab PO BID Claritin (Loratadine) 10 Mg Tablet 1 Tab PO DAILY PRN Coumadin (Warfarin Sodium) 6 Mg Tablet 1.5 Tab PO FR,MO Coumadin (Warfarin Sodium) 6 Mg Tablet 6 Mg PO TU,WE,TH,SA,DUNCAN Klor-Con M20 (Potassium Chloride) 20 Meq Tab.er.prt 40 Meq PO QID Acetaminophen 500 Mg Tablet 1 Tab PO PRN Q6HRS PRN Mucinex Dm Er 600-30 Mg Tablet (Guaifenesin/Dextromethorphan) 1 Each Tab.er.12h 1 Tab PO PRN Q12HRS Trazodone Hcl 50 Mg Tablet 25 Mg PO HS Propafenone Hcl 150 Mg Tablet 150 Mg PO BID Systane 0.3-0.4% Eye Drops (Propylene Glycol/Peg 400/Pf) 1 Each Droperette 1 Each OP DAILY Xanax (Alprazolam) 0.25 Mg Tablet 1 Tab PO PRN BID PRN Biotin 1 Mg Capsule 1,000 Mg PO BID [lutein] 1 Tab BID [Iron ] 1 Tab DAILY Aldactone (Spironolactone) 25 Mg Tablet 1 Tab PO BID Omeprazole 40 Mg Capsule.dr 40 Mg PO DAILY Tramadol Hcl 50 Mg Tablet 50 Mg PO PRN Q6HRS PRN Fish Oil 1,000 Mg Softgel ([place]-3 Fatty Acids/Fish Oil) 1 Each Capsule 1 Each PO DAILY Allopurinol 100 Mg Tablet 100 Mg PO DAILY Paxil (Paroxetine Hcl) 40 Mg Tablet 20 Mg PO DAILY Levothyroxine Sodium 100 Mcg Tablet 100 Mcg PO DAILY Vitals/I & O Vital Sign - Last 24 Hours 06/27/17 06/27/17 06/27/17 06/27/17 10:54 14:21 19:00 19:30 Temp 97.5 98.0 98.1 97.5 98.0 98.1 Pulse 76 77 79 Resp 18 19 20 B/P (MAP) 96/54 (68) 91/55 (67) 102/61 (75) Pulse Ox 98 99 98 O2 Delivery Room Air Room Air Room Air Room Air 06/27/17 06/27/17 06/28/17 06/28/17 21:13 23:00 03:00 07:27 Temp 98.3 98.0 98.6 98.3 98.0 98.6 Pulse 69 78 77 74 Resp 20 20 18 B/P (MAP) 102/61 94/59 (71) 91/52 (65) 93/48 (63) Pulse Ox 96 96 96 O2 Delivery Room Air Room Air Room Air 06/28/17 06/28/17 08:47 08:47 Pulse 74 B/P (MAP) 93/48 Pulse Ox 96 O2 Delivery Room Air Intake and Output 06/27/17 06/27/17 06/28/17 14:59 22:59 06:59 Intake Total 200 ml Balance 200 ml Nutrition Consultation Dietary Evaluation: Recommendations by RD: Dietary education by RD Comments: po intake improves with food preferences continue with food preferences/ pt calling dietary for foods she likes Expected Outcomes/Goals: to meet > 50% est nutr needs- met, goal ongoing Interpretation of weight loss: >5% in 1 month Malnutrition Findings: Body Fat Depletion (Non Severe: Mild Depletion Weight Status: Appropriate CJ DIAL MD Jun 28, 2017 09:59
--- NOTE | 2017-06-28 10:08 | PDOC ---
PROGRESS NOTES Chief Complaint Chief Complaint FTT Uremia ASSESSMENT AND PLAN: 1. Weakness, shortness breath, nausea, abdominal pain and generalized debility : improving. OT/PT eval for rehab 2. AL/uremia: 2/2 dehydration. creat at baseline, BUN still quite elevated. monitor closely off fluids or lasix; spironolactone started 3. CHF: chronic systolic (echo 06/24 with EF 40%, mod aortic stenosis/regurg). Dr Ross following. ? appropriate home lasix dose (previously on 80 bid ) 4. Hyponatremia: resolved 5. Hyperkalemia, now hypokalemia: prob 2/2 recovering renal fxn. aggressively repleted, normal today. monitor 7. Hypocalcemia: replete; Vit D level pending 8. Toe pain (corn): consult Dr Stephens - not coming to hospital 9. Acoustic neuroma L: O/P NS F/U; appreciate Dr Dale's input 9. Dispo: transfer to Med/Tele floor History of Present Illness History of Present Illness breathing ok. no new issues Vitals Vitals Vital Signs Date Time Temp Pulse Resp B/P (MAP) Pulse Ox O2 Delivery O2 Flow Rate FiO2 06/28/17 08:47 96 Room Air 06/28/17 08:47 74 93/48 06/28/17 07:27 98.6 18 98.6 Physical Exam General: Alert, Oriented X3, Cooperative, No acute distress Heart: Regular rate, Normal S1, Normal S2, Other (no change in diastolic murmur ) Lungs: Clear Abdomen: Normal bowel sounds, Soft, No tenderness Extremities: No edema Skin: No rashes, No significant lesion Labs LABS Laboratory Tests Test 06/28/17 06:20 Prothrombin Time 21.6 SEC (11.7-14.0) Prothromb Time International Ratio 2.0 (0.8-1.1) Sodium Level 138 mmol/L (136-145) Potassium Level 3.5 mmol/L (3.5-5.1) Chloride Level 102 mmol/L (98-107) Carbon Dioxide Level 32 mmol/L (21-32) Anion Gap 4 (6-14) Blood Urea Nitrogen 37 mg/dL (7-20) Creatinine 1.3 mg/dL (0.6-1.0) Estimated GFR (Cockcroft-Gault) 39.8 Glucose Level 85 mg/dL (70-99) Calcium Level 8.2 mg/dL (8.5-10.1) Phosphorus Level 2.1 mg/dL (2.6-4.7) Albumin 2.5 g/dL (3.4-5.0) Nutrition Consultation Dietary Evaluation: Recommendations by RD: Dietary education by RD Comments: po intake improves with food preferences continue with food preferences/ pt calling dietary for foods she likes Expected Outcomes/Goals: to meet > 50% est nutr needs- met, goal ongoing Interpretation of weight loss: >5% in 1 month Malnutrition Findings: Body Fat Depletion (Non Severe: Mild Depletion Weight Status: Appropriate AMBROCIO MONTILLA MD Jun 28, 2017 10:07
[2017-06-28 10:27] VITALS: BP 96/59
--- NOTE | 2017-06-28 13:15 | PDOC ---
PROGRESS NOTES Assessment Assessment Feeling of tremors or shaking in body. Left acoustic neuroma. Hypokalemia, K+ 2.7 Generalized weakness x 5 days. AFib CHF TIA HLD Hypothyroidism Left side lung cancer s/p lobectomy. Pacemaker placement. RECOMMENDATIONS/PLAN: EEG on 06/28/17. Treat medical diseases. No MRI due to pacemaker. FU with neurosurgery as out-patient for acoustic neuroma. OT/PT. HISTORY OF THE PRESENT ILLNESS: 76-y-old female patient with above medical diseases and left side lung cancer s/p lobectomy has been having symptoms of generalized weakness for 5 days before coming to the ER of [facility]. She also complained episodic tremors or shaking movements in her body lasted briefly. No further d=feeling of tremor or shaking sense inside the body so far. Past Medical History Cardiovascular: AFIB, CHF, Hyperlipidemia CENTRAL NERVOUS SYSTEM: TIA GI: GERD Heme/Onc: Anemia NOS, Cancer Psych: Anxiety, Depression Musculoskeletal: Osteoarthritis, Stiffness Rheumatologic: Gout, Rheumatoid arthritis Endocrine: Hypothyroidism Past Surgical History Pacemaker Cholecystectomy Family History Cancer Social History ALCOHOL: none Drugs: None ALLERGY: Reviewed. MEDICATIONS: Refer to MAR REVIEW OF SYSTEMS: Constitutional: No malnutrition, cachexia. Head: No traumatic brain or head injury. Skin: No edema, or rash. Ear: No infection. Eyes: No vision loss or color blindness. Nose: No bleeding or purulent discharges. Hearing: Hearing decrease. Neck: No injury. Breast: No history of cancer, masses,or discharges. Cardiac: Pacemaker Placement Pulmonary: left lung cancer s/o lobectomy. GI: No GI ulcer, GI bleeding. Urinary/genital: UTI. Endocrinologic: No cousin face, craniofacial dysmorphism, polydactyly, goiter, Diabetes Mellitus, hypothyroidism, obesity, morbid obesity. Skeletomuscular: Generalized weakness. Neurological: see HP. Psychiatric: Denies drug use/abuse. Otherwise, not [id number] review of systems. PHYSICAL EXAMINATION: General appearance is in no acute distress. HEENT: Normocephalic and nontraumatic. Eyes, nose, ears, and throat are unremarkable. Neck is supple. No lymphadenopathy. No bruits are heard over the carotid artery. No crepitus. Cardiovascular: S1, S2, regular rate and rhythm. Pulmonary: Clear to auscultation bilaterally. Abdomen: Bowel sounds are positive. Abdomen is soft, nontender, and nondistended. Extremities: No rash, lesions, or edema. No restriction of range of motion NEUROLOGICAL EXAMINATION: Awake. Oriented to place and person and partially to time. PERRL. EOMI. CN: no focal findings. Muscle tone: within normal. Muscle strength: 4+ DTR: 2- Plantar reflex: Flexor response bilaterally Gait: not examined in bed. Sensory exam: no abnormal findings. No acute cerebellar signs elicited. F-T-N test fine. No tremors in hand or body. Objective Objective Vital Signs Date Time Temp Pulse Resp B/P (MAP) Pulse Ox O2 Delivery O2 Flow Rate FiO2 06/28/17 10:27 97.9 83 19 96/59 (71) 97 Room Air 97.9 Intake and Output 06/28/17 07:00 Intake Total 200 ml Balance 200 ml Intake Oral 200 ml # Voids 5 # Bowel Movements 1 Vitals Signs Vitals VS - Last 72 Hours, by Label Date Time Temp Pulse Resp B/P (MAP) Pulse Ox O2 Delivery O2 Flow Rate FiO2 06/28/17 10:27 97.9 83 19 96/59 (71) 97 Room Air 97.9 06/28/17 09:47 16 96 Room Air 06/28/17 08:47 96 Room Air 06/28/17 08:47 74 93/48 06/28/17 08:00 Room Air 06/28/17 07:27 98.6 74 18 93/48 (63) 96 Room Air 98.6 06/28/17 03:00 98.0 77 20 91/52 (65) 96 Room Air 98.0 06/27/17 23:00 98.3 78 20 94/59 (71) 96 Room Air 98.3 06/27/17 21:13 69 102/61 06/27/17 19:30 Room Air 06/27/17 19:00 98.1 79 20 102/61 (75) 98 Room Air 98.1 06/27/17 14:21 98.0 77 19 91/55 (67) 99 Room Air 98.0 06/27/17 10:54 97.5 76 18 96/54 (68) 98 Room Air 97.5 06/27/17 09:00 66 91/51 06/27/17 08:20 Room Air 06/27/17 07:30 98.1 66 18 91/51 (64) 96 Room Air 98.1 Laboratory Laboratory Laboratory Tests Test 06/28/17 06:20 Prothrombin Time 21.6 SEC (11.7-14.0) Prothromb Time International Ratio 2.0 (0.8-1.1) Sodium Level 138 mmol/L (136-145) Potassium Level 3.5 mmol/L (3.5-5.1) Chloride Level 102 mmol/L (98-107) Carbon Dioxide Level 32 mmol/L (21-32) Anion Gap 4 (6-14) Blood Urea Nitrogen 37 mg/dL (7-20) Creatinine 1.3 mg/dL (0.6-1.0) Estimated GFR (Cockcroft-Gault) 39.8 Glucose Level 85 mg/dL (70-99) Calcium Level 8.2 mg/dL (8.5-10.1) Phosphorus Level 2.1 mg/dL (2.6-4.7) Albumin 2.5 g/dL (3.4-5.0) Medication Medications Current Medications Warfarin Sodium (Coumadin) 9 mg 1X WARF ONCE PO Last administered on 06/27/17t 16:53; Start 06/27/17 at 16:00; Stop 06/27/17 at 16:01; Status DC Comment Review of Relevant I have reviewed the following items leila (where applicable) has been applied. YASMANY AVALOS MD Jun 28, 2017 13:15
[2017-06-28 14:43] VITALS: BP 96/50
[2017-06-28] MEDS: BISACODYL 5 MG TABLET.DR. PO PRN (15:57)
[2017-06-28] MEDS ORDERED: WARFARIN 6 MG TABLET. PO ONE (16:00)
--- NOTE | 2017-06-28 17:55 | EEG ---
DATE OF SERVICE: 06/28/2017 EEG NUMBER: [id number]. OBJECTIVE: This is a 76-year-old female patient with history of shaking or tremendous movements. EEG was requested to help rule out seizure. METHODS: Twenty electrodes were applied according to the international 10-20 electrode placement system. EKG monitoring, hyperventilation, intermittent photic stimulation, monopolar and bipolar montages are routinely utilized. The record was obtained on a digital system with video monitoring. FINDINGS: 1. Background: The patient was recorded in the awake, drowsy, and sleep state. The overall background amplitude is 10-20 microvolts. A posterior dominant rhythm of 8 Hz is observed. No sleep state was recorded. 2. Abnormalities: No specific epileptiform discharge or electrographic seizure is seen. No focal or diffuse slowing. 3. Activation: Hyperventilation was performed with fair efforts and normal response. Intermittent photic stimulation was performed with photic driving. No specific epileptiform discharge or electrographic seizure induced by hyperventilation or intermittent photic stimulation. IMPRESSION: This EEG is within the broad normal limits of the study for the awake and drowsy state. No sleep state was recorded. No focal, lateralizing, specific epileptiform discharge, or electrographic seizure is seen. YASMANY AVALOS MD DR: VLAD/yo JOB#: [id number] / [id number]
[2017-06-28 19:11] VITALS: BP 100/57
[2017-06-28] MEDS: traZODone 50 MG TABLET. PO SCH (20:41)
[2017-06-28] MEDS: ACETAMINOPHEN 500 MG TABLET PO PRN (20:44)
[2017-06-28 22:52] VITALS: BP 92/55
[2017-06-29 03:15] VITALS: BP 109/69
[2017-06-29] MEDS: traMADol 50 MG TABLET PO PRN ×3 (04:27→17:30)
[2017-06-29 07:00] VITALS: BP 105/60
[2017-06-29 07:00] LABS: ALBUMIN 2.4 g/dL (3.4-5.0); CALCIUM 8.1 mg/dL (8.5-10.1); GFR 53.9; PHOSPHORUS 2.4 mg/dL (2.6-4.7)
[2017-06-29 07:24] LABS: INR 2.7 (0.8-1.1)
[2017-06-29] MEDS: POLYVINYL ALCOHOL 1.4% OPHTH SOLUTION 15ML BOTTLE. OU SCH ×2 (09:00→20:38)
[2017-06-29] MEDS: ALLOPURINOL 100 MG TABLET. PO SCH (09:42)
[2017-06-29] MEDS: FERROUS SULFATE 325 MG TABLET. PO SCH (09:42)
[2017-06-29] MEDS: MULTIVITAMIN I-VITE TABLET. PO SCH ×2 (09:42→20:30)
[2017-06-29] MEDS: ENOXAPARIN 30 MG/0.3 ML SYRINGE. SQ SCH (09:43)
[2017-06-29] MEDS: PANTOPRAZOLE 40 MG TABLET.DR. PO SCH (09:43)
[2017-06-29] MEDS: OMEGA-3 FATTY ACIDS/FISH OIL 1,000 MG CAPSULE. PO SCH (09:43)
[2017-06-29] MEDS: HYDROXYCHLOROQUINE 200 MG TABLET PO SCH (09:43)
[2017-06-29] MEDS: LEVOTHYROXINE 100 MCG TABLET PO SCH (09:43)
[2017-06-29] MEDS: BISACODYL 5 MG TABLET.DR. PO PRN (09:43)
[2017-06-29] MEDS: PROPAFENONE 150 MG TABLET. PO SCH ×2 (09:43→20:31)
[2017-06-29] MEDS: PARoxetine 20 MG TABLET PO SCH (09:43)
[2017-06-29] MEDS: CALCIUM CARB/VIT D3 500/200 TABLET. PO SCH ×2 (09:43→16:29)
[2017-06-29] MEDS: ALPRAZolam 0.25 MG TABLET PO PRN ×2 (09:49→20:29)
[2017-06-29 11:00] VITALS: BP 99/57
[2017-06-29] MEDS ORDERED: POTASSIUM CHLORIDE 20 MEQ TABLET.ER. PO ONE (11:15)
[2017-06-29] MEDS ORDERED: MAGNESIUM SULFATE 2GM 50 ML IV ONE (11:15)
--- NOTE | 2017-06-29 11:22 | PDOC ---
PROGRESS NOTES Chief Complaint Chief Complaint FTT Uremia ongoing hypokalemia ASSESSMENT AND PLAN: 1. Weakness, shortness breath, nausea, abdominal pain and generalized debility : improving. OT/PT eval for rehab 2. AL/uremia: 2/2 dehydration. creat at baseline, BUN still quite elevated. monitor closely off fluids or lasix; spironolactone started 3. CHF: chronic systolic (echo 06/24 with EF 40%, mod aortic stenosis/regurg). Dr Ross following. adjusting home lasix dose (previously on 80 bid) 4. Hyponatremia: resolved 5. Hyperkalemia, now hypokalemia: prob 2/2 recovering renal fxn. aggressively repleted, normal today. monitor 7. Hypocalcemia: replete; Vit D level pending 8. Toe pain (corn): consult Dr Stephens - not coming to hospital 9. Acoustic neuroma L: O/P NS F/U; appreciate Dr Dale's input 9. Dispo: dc when CV stable History of Present Illness History of Present Illness breathing ok. no new issues Vitals Vitals Vital Signs Date Time Temp Pulse Resp B/P (MAP) Pulse Ox O2 Delivery O2 Flow Rate FiO2 06/29/17 09:50 18 100 Room Air 06/29/17 09:43 83 105/60 06/29/17 07:00 97.4 97.4 Physical Exam General: Alert, Oriented X3, Cooperative, No acute distress Heart: Regular rate, Normal S1, Normal S2, Other (no change in diastolic murmur ) Lungs: Clear Abdomen: Normal bowel sounds, Soft, No tenderness Extremities: No edema Skin: No rashes, No significant lesion Labs LABS Laboratory Tests Test 06/29/17 06:30 Prothrombin Time 27.0 SEC (11.7-14.0) Prothromb Time International Ratio 2.7 (0.8-1.1) Sodium Level 138 mmol/L (136-145) Potassium Level 3.0 mmol/L (3.5-5.1) Chloride Level 101 mmol/L (98-107) Carbon Dioxide Level 30 mmol/L (21-32) Anion Gap 7 (6-14) Blood Urea Nitrogen 39 mg/dL (7-20) Creatinine 1.0 mg/dL (0.6-1.0) Estimated GFR (Cockcroft-Gault) 53.9 Glucose Level 77 mg/dL (70-99) Calcium Level 8.1 mg/dL (8.5-10.1) Phosphorus Level 2.4 mg/dL (2.6-4.7) Albumin 2.4 g/dL (3.4-5.0) Review of Systems Review of Systems feels well no n.v.d str. improving normal stools Assessment and Plan Assessmemt and Plan Problems Medical Problems: (1) Hyperkalemia Status: Acute (2) Renal failure Status: Acute Problems: Comment Review of Relevant I have reviewed the following items leila (where applicable) has been applied. Labs Laboratory Tests Test 06/28/17 06:20 06/29/17 06:30 Prothrombin Time 21.6 SEC (11.7-14.0) 27.0 SEC (11.7-14.0) Prothromb Time International Ratio 2.0 (0.8-1.1) 2.7 (0.8-1.1) Sodium Level 138 mmol/L (136-145) 138 mmol/L (136-145) Potassium Level 3.5 mmol/L (3.5-5.1) 3.0 mmol/L (3.5-5.1) Chloride Level 102 mmol/L (98-107) 101 mmol/L (98-107) Carbon Dioxide Level 32 mmol/L (21-32) 30 mmol/L (21-32) Anion Gap 4 (6-14) 7 (6-14) Blood Urea Nitrogen 37 mg/dL (7-20) 39 mg/dL (7-20) Creatinine 1.3 mg/dL (0.6-1.0) 1.0 mg/dL (0.6-1.0) Estimated GFR (Cockcroft-Gault) 39.8 53.9 Glucose Level 85 mg/dL (70-99) 77 mg/dL (70-99) Calcium Level 8.2 mg/dL (8.5-10.1) 8.1 mg/dL (8.5-10.1) Phosphorus Level 2.1 mg/dL (2.6-4.7) 2.4 mg/dL (2.6-4.7) Albumin 2.5 g/dL (3.4-5.0) 2.4 g/dL (3.4-5.0) Laboratory Tests Test 06/29/17 06:30 Prothrombin Time 27.0 SEC (11.7-14.0) Prothromb Time International Ratio 2.7 (0.8-1.1) Sodium Level 138 mmol/L (136-145) Potassium Level 3.0 mmol/L (3.5-5.1) Chloride Level 101 mmol/L (98-107) Carbon Dioxide Level 30 mmol/L (21-32) Anion Gap 7 (6-14) Blood Urea Nitrogen 39 mg/dL (7-20) Creatinine 1.0 mg/dL (0.6-1.0) Estimated GFR (Cockcroft-Gault) 53.9 Glucose Level 77 mg/dL (70-99) Calcium Level 8.1 mg/dL (8.5-10.1) Phosphorus Level 2.4 mg/dL (2.6-4.7) Albumin 2.4 g/dL (3.4-5.0) Medications Current Medications Acetaminophen (Tylenol) 500 mg PRN Q6HRS PRN PO MILD PAIN / TEMP Last administered on 06/28/17 20:44; Start 06/23/17 at 20:45 Allopurinol (Zyloprim) 100 mg DAILY PO Last administered on 06/29/17 09:42; Start 06/24/17 at 09:00 Alprazolam (Xanax) 0.25 mg PRN BID PRN PO ANXIETY / AGITATION Last administered on 06/29/17 09:49; Start 06/23/17 at 20:45 Furosemide (Lasix) 80 mg BID94 PO Last administered on 06/24/17 08:25; Start 06/24/17 at 09:00; Stop 06/24/17 at 11:09; Status DC Guaifenesin (MUCINEX ER with DM) 1 tab PRN Q12HRS PRN PO MUCOUS/CONGESTION; Start 06/23/17 at 20:45 Levothyroxine Sodium (Synthroid) 100 mcg DAILY07 PO ; Start 06/24/17 at 07:00; Stop 06/24/17 at 07:00; Status DC Potassium Chloride (Klor-Con) 40 meq QID PO ; Start 06/23/17 at 21:00; Stop at 22:13; Status DC Propafenone HCl (Rythmol) 150 mg BID PO Last administered on 06/29/17 09:43; Start 06/23/17 at 21:00 Spironolactone (Aldactone) 25 mg BID94 PO Last administered on 06/26/17 08:20; Start 06/24/17 at 09:00; Stop 06/26/17 at 12:34; Status DC Tramadol HCl (Ultram) 50 mg PRN Q6HRS PRN PO PAIN Last administered on 09:50; Start 06/23/17 at 20:45 Trazodone HCl (Desyrel) 25 mg HS PO Last administered on 06/28/17 20:41; Start 06/23/17 at 21:00 Warfarin Sodium (Coumadin) 9 mg DAILY16 PO ; Start 06/24/17 at 16:00; Stop 06/24 at 16:00; Status DC Non-Formulary Medication 1,000 mg BID PO ; Start 06/23/17 at 21:00; Stop at 21:00; Status DC Calcium/Vitamin D (Oscal D 500mg/ 200uts) 1 tab BIDAFTMEAL PO Last administered on 06/29/17 09:43; Start 06/24/17 at 09:00 Cetirizine HCl (ZyrTEC) 10 mg PRN DAILY PRN PO ALLERGIES; Start 06/24/17 at 09: 00 Fish Oil (Fish Oil) 1,000 mg DAILY PO Last administered on 06/29/17 09:43; Start 06/24/17 at 09:00 Pantoprazole Sodium (Protonix) 40 mg DAILYAC PO Last administered on 06/29/17 09:43; Start 06/24/17 at 07:30 Paroxetine HCl (Paxil) 20 mg DAILY PO Last administered on 06/29/17 09:43; Start 06/24/17 at 09:00 Artificial Tears (Artificial Tears) 1 drop DAILY OU Last administered on 08:24; Start 06/24/17 at 09:00; Stop 06/29/17 at 10:24; Status DC Hydroxychloroquine Sulfate (Plaquenil) 200 mg DAILY08 PO Last administered on 09:43; Start 06/24/17 at 09:00 Ferrous Sulfate (Feosol) 325 mg DAILYWBKFT PO Last administered on 06/29/17 09: 42; Start 06/24/17 at 08:00 Multivitamins/ Minerals (I-Cristiano) 1 tab BID PO Last administered on 06/29/17 09: 42; Start 06/24/17 at 09:00 Methotrexate (Rheumatrex) 17.5 mg We@0900 PO Last administered on 06/26/17 08: 38; Start 06/26/17 at 09:00 Warfarin Sodium (Coumadin Per Pharmacy) 1 each PRN DAILY PRN MC SEE COMMENTS Last administered on 06/28/17 14:11; Start 06/23/17 at 21:00 Calcium Gluconate (Calcium Gluconate) 1,000 mg 1X ONCE IVP Last administered on 06/23/17 21:42; Start 06/23/17 at 21:30; Stop 06/23/17 at 21:31; Status DC Dextrose (Dextrose 50%-Water Syringe) 25 gm 1X ONCE IV Last administered on 22:00; Start 06/23/17 at 21:30; Stop 06/23/17 at 21:31; Status DC Insulin Human Regular (NovoLIN R VIAL) 10 unit 1X ONCE IV Last administered on 06/23/17 21:58; Start 06/23/17 at 21:30; Stop 06/23/17 at 21:31; Status DC Sodium Bicarbonate 50 meq 1X ONCE IV Last administered on 06/23/17 21:49; Start 06/23/17 at 21:45; Stop 06/23/17 at 21:46; Status DC Sodium Bicarbonate 150 meq/Dextrose 1,150 ml @ 100 mls/hr [id number] IV Last administered on 06/23/17 22:39; Start 06/23/17 at 22:30; Stop 06/24/17 at 11:09 ; Status DC Sodium Polystyrene Sulfonate (Kayexalate) 30 gm 1X ONCE PO Last administered on 06/23/17 22:37; Start 06/23/17 at 22:30; Stop 06/23/17 at 22:31; Status DC Sodium Polystyrene Sulfonate (Kayexalate) 15 gm 1X PRN PRN PO K+ >6 4 HOURS AFTER INITIAL DOSE; Start 06/23/17 at 22:45; Stop 06/25/17 at 08:47; Status DC Fentanyl Citrate (Fentanyl 2ml Vial) 50 mcg PRN Q2HR PRN IV PAIN; Start at 23:30; Stop 06/24/17 at 23:29; Status DC Acetaminophen (Tylenol) 650 mg PRN Q4HRS PRN PO FEVER Last administered on 06/24 20:27; Start 06/23/17 at 23:30; Stop 06/24/17 at 23:29; Status DC Levothyroxine Sodium (Synthroid) 100 mcg DAILY08 PO Last administered on 09:43; Start 06/24/17 at 08:00 Phytonadione (Mephyton) 2.5 mg 1X ONCE PO Last administered on 06/24/17 06:06 ; Start 06/24/17 at 06:00; Stop 06/24/17 at 06:01; Status DC Potassium Chloride (Klor-Con) 40 meq 1X ONCE PO Last administered on 06:06; Start 06/24/17 at 06:00; Stop 06/24/17 at 06:01; Status DC Potassium Chloride (Klor-Con) 40 meq 1X ONCE PO Last administered on 09:43; Start 06/24/17 at 09:45; Stop 06/24/17 at 09:46; Status DC Potassium Chloride (Klor-Con) 40 meq 1X ONCE PO Last administered on 15:31; Start 06/24/17 at 14:00; Stop 06/24/17 at 14:01; Status DC Warfarin Sodium (Coumadin - No Dose Today) 1 each 1X WARF ONCE MC Last administered on 06/24/17 10:19; Start 06/24/17 at 16:00; Stop 06/24/17 at 16:01 ; Status DC Magnesium Sulfate/ Dextrose 50 ml @ 25 mls/hr PRN DAILY PRN IV for Mag < 1.7 on am labs; Start 06/24/17 at 11:00 Potassium Chloride 40 meq/ Sodium Chloride 1,020 ml @ 75 mls/hr [id number] IV Last administered on 06/25/17 03:22; Start 06/24/17 at 12:00; Stop 06/25/17 at 08 :47; Status DC Potassium Chloride 50 ml @ 25 mls/hr Q2HR IV Last administered on 06/25/17 03: 21; Start 06/24/17 at 20:00; Stop 06/25/17 at 07:59; Status DC Enoxaparin Sodium (Lovenox Per Pharmacy Prophylaxis Dosing) 1 each PRN DAILY PRN MC SEE COMMENTS; Start 06/25/17 at 09:00 Enoxaparin Sodium (Lovenox 30mg Syringe) 30 mg Q24H SQ Last administered on 06/29 09:43; Start 06/25/17 at 09:00 Warfarin Sodium (Coumadin) 6 mg 1X WARF ONCE PO Last administered on 06/25/17 17:08; Start 06/25/17 at 16:00; Stop 06/25/17 at 16:01; Status DC Potassium Chloride (Klor-Con) 20 meq 1X ONCE PO Last administered on 06/25/17 21:07; Start 06/25/17 at 20:00; Stop 06/25/17 at 20:01; Status DC Potassium Chloride 100 ml @ 100 mls/hr Q1H IV Last administered on 06/26/17 09 :39; Start 06/26/17 at 05:30; Stop 06/26/17 at 09:29; Status DC Potassium Chloride (Klor-Con) 40 meq 1X ONCE PO Last administered on 06/26/17 09:40; Start 06/26/17 at 09:30; Stop 06/26/17 at 09:33; Status DC Potassium Chloride (Klor-Con) 40 meq 1X ONCE PO Last administered on 06/26/17 11:30; Start 06/26/17 at 11:30; Stop 06/26/17 at 11:31; Status DC Warfarin Sodium (Coumadin) 8 mg 1X WARF ONCE PO Last administered on 06/26/17 17:16; Start 06/26/17 at 16:00; Stop 06/26/17 at 16:01; Status DC Potassium Chloride (Klor-Con) 40 meq TIDWMEALS PO Last administered on 16:54; Start 06/27/17 at 08:00; Stop 06/27/17 at 18:00; Status DC Warfarin Sodium (Coumadin) 9 mg 1X WARF ONCE PO Last administered on 06/27/17 16:53; Start 06/27/17 at 16:00; Stop 06/27/17 at 16:01; Status DC Warfarin Sodium (Coumadin) 6 mg 1X WARF ONCE PO Last administered on 06/28/17 15:57; Start 06/28/17 at 16:00; Stop 06/28/17 at 16:01; Status DC Bisacodyl (Dulcolax Tab) 5 mg PRN DAILY PRN PO CONSTIPATION Last administered on 06/29/17 09:43; Start 06/28/17 at 15:45 Artificial Tears (Artificial Tears) 1 drop HS OU ; Start 06/29/17 at 21:00 Active Scripts Active Reported Methotrexate (Methotrexate Sodium) 2.5 Mg Tablet 7 Tab PO SATURDAY [hydroxyl-chloroquine] 200 Mg PO DAILY08 Calcium + Vitamin D Tablet (Calcium Carbonate/Vitamin D3) 1 Each Tablet 1 Each PO BID Furosemide 80 Mg Tablet 1 Tab PO BID Claritin (Loratadine) 10 Mg Tablet 1 Tab PO DAILY PRN Coumadin (Warfarin Sodium) 6 Mg Tablet 1.5 Tab PO ,[place] Coumadin (Warfarin Sodium) 6 Mg Tablet 6 Mg PO ,,,SA,DUNCAN Klor-Con M20 (Potassium Chloride) 20 Meq Tab.er.prt 40 Meq PO QID Acetaminophen 500 Mg Tablet 1 Tab PO PRN Q6HRS PRN Mucinex Dm Er 600-30 Mg Tablet (Guaifenesin/Dextromethorphan) 1 Each Tab.er.12h 1 Tab PO PRN Q12HRS Trazodone Hcl 50 Mg Tablet 25 Mg PO HS Propafenone Hcl 150 Mg Tablet 150 Mg PO BID Systane 0.3-0.4% Eye Drops (Propylene Glycol/Peg 400/Pf) 1 Each Droperette 1 Each OP DAILY Xanax (Alprazolam) 0.25 Mg Tablet 1 Tab PO PRN BID PRN Biotin 1 Mg Capsule 1,000 Mg PO BID [lutein] 1 Tab BID [Iron ] 1 Tab DAILY Aldactone (Spironolactone) 25 Mg Tablet 1 Tab PO BID Omeprazole 40 Mg Capsule.dr 40 Mg PO DAILY Tramadol Hcl 50 Mg Tablet 50 Mg PO PRN Q6HRS PRN Fish Oil 1,000 Mg Softgel ([place]-3 Fatty Acids/Fish Oil) 1 Each Capsule 1 Each PO DAILY Allopurinol 100 Mg Tablet 100 Mg PO DAILY Paxil (Paroxetine Hcl) 40 Mg Tablet 20 Mg PO DAILY Levothyroxine Sodium 100 Mcg Tablet 100 Mcg PO DAILY Vitals/I & O Vital Sign - Last 24 Hours 06/28/17 06/28/17 06/28/17 06/28/17 14:43 16:31 19:11 19:14 Temp 97.3 98.4 97.3 98.4 Pulse 84 90 Resp 18 18 18 B/P (MAP) 96/50 (65) 100/57 (71) Pulse Ox 95 95 98 O2 Delivery Room Air Room Air Room Air Room Air 06/28/17 06/28/17 06/29/17 06/29/17 20:41 22:52 03:15 04:27 Temp 97.9 98.1 97.9 98.1 Pulse 90 90 88 Resp 16 16 16 B/P (MAP) 100/57 92/55 (67) 109/69 (82) Pulse Ox 98 99 98 O2 Delivery Room Air Room Air Room Air 06/29/17 06/29/17 06/29/17 06/29/17 05:45 07:00 07:29 09:43 Temp 97.4 97.4 Pulse 83 83 Resp 16 17 B/P (MAP) 105/60 (75) 105/60 Pulse Ox 98 100 O2 Delivery Room Air Room Air Room Air 06/29/17 09:50 Resp 18 Pulse Ox 100 O2 Delivery Room Air Intake and Output 06/28/17 06/28/17 06/29/17 14:59 22:59 06:59 Intake Total 650 ml Balance 650 ml Nutrition Consultation Dietary Evaluation: Recommendations by RD: Dietary education by RD Comments: po intake improves with food preferences continue with food preferences/ pt calling dietary for foods she likes Expected Outcomes/Goals: to meet > 50% est nutr needs- met, goal ongoing Interpretation of weight loss: >5% in 1 month Malnutrition Findings: Body Fat Depletion (Non Severe: Mild Depletion Weight Status: Appropriate SWEETIE SALDAÑA MD Jun 29, 2017 11:22
[2017-06-29] MEDS: POTASSIUM CHLORIDE 20 MEQ/15 ML ORAL LIQUID. PO SCH ×2 (13:14→16:29)
--- NOTE | 2017-06-29 13:43 | PDOC ---
PROGRESS NOTES Assessment Problems Medical Problems: (1) Hyperkalemia Status: Acute (2) Renal failure Status: Acute Essential tremors Left acoustic neuroma. Plan No additional neurologic treatment now Discussed with patient Subjective tremor is better Objective Vital Signs Date Time Temp Pulse Resp B/P (MAP) Pulse Ox O2 Delivery O2 Flow Rate FiO2 06/29/17 11:00 97.7 80 19 99/57 (71) 100 Room Air 97.7 Intake and Output 06/29/17 07:00 Intake Total 650 ml Balance 650 ml Intake Oral 650 ml # Voids 6 # Bowel Movements 1 PHYSICAL EXAM Alert. Oriented to time, place and person. PERRL. EOMI. CN: no focal findings. Muscle tone: normal. Muscle strength: 4/5 DTR: 1+ Plantar reflex: flexor Gait: not examined in bed. Sensory exam: no abnormal findings. No cerebellar signs elicited. Minimal postural tremor, within physiologic range Review of Relevant I have reviewed the following items leila (where applicable) has been applied. Labs Laboratory Tests Test 06/28/17 06:20 06/29/17 06:30 Prothrombin Time 21.6 SEC (11.7-14.0) 27.0 SEC (11.7-14.0) Prothromb Time International Ratio 2.0 (0.8-1.1) 2.7 (0.8-1.1) Sodium Level 138 mmol/L (136-145) 138 mmol/L (136-145) Potassium Level 3.5 mmol/L (3.5-5.1) 3.0 mmol/L (3.5-5.1) Chloride Level 102 mmol/L (98-107) 101 mmol/L (98-107) Carbon Dioxide Level 32 mmol/L (21-32) 30 mmol/L (21-32) Anion Gap 4 (6-14) 7 (6-14) Blood Urea Nitrogen 37 mg/dL (7-20) 39 mg/dL (7-20) Creatinine 1.3 mg/dL (0.6-1.0) 1.0 mg/dL (0.6-1.0) Estimated GFR (Cockcroft-Gault) 39.8 53.9 Glucose Level 85 mg/dL (70-99) 77 mg/dL (70-99) Calcium Level 8.2 mg/dL (8.5-10.1) 8.1 mg/dL (8.5-10.1) Phosphorus Level 2.1 mg/dL (2.6-4.7) 2.4 mg/dL (2.6-4.7) Albumin 2.5 g/dL (3.4-5.0) 2.4 g/dL (3.4-5.0) Laboratory Tests Test 06/29/17 06:30 Prothrombin Time 27.0 SEC (11.7-14.0) Prothromb Time International Ratio 2.7 (0.8-1.1) Sodium Level 138 mmol/L (136-145) Potassium Level 3.0 mmol/L (3.5-5.1) Chloride Level 101 mmol/L (98-107) Carbon Dioxide Level 30 mmol/L (21-32) Anion Gap 7 (6-14) Blood Urea Nitrogen 39 mg/dL (7-20) Creatinine 1.0 mg/dL (0.6-1.0) Estimated GFR (Cockcroft-Gault) 53.9 Glucose Level 77 mg/dL (70-99) Calcium Level 8.1 mg/dL (8.5-10.1) Phosphorus Level 2.4 mg/dL (2.6-4.7) Albumin 2.4 g/dL (3.4-5.0) Medications Current Medications Acetaminophen (Tylenol) 500 mg PRN Q6HRS PRN PO MILD PAIN / TEMP Last administered on 06/28/17 20:44; Start 06/23/17 at 20:45 Allopurinol (Zyloprim) 100 mg DAILY PO Last administered on 06/29/17 09:42; Start 06/24/17 at 09:00 Alprazolam (Xanax) 0.25 mg PRN BID PRN PO ANXIETY / AGITATION Last administered on 06/29/17 09:49; Start 06/23/17 at 20:45 Furosemide (Lasix) 80 mg BID94 PO Last administered on 06/24/17 08:25; Start 06/24/17 at 09:00; Stop 06/24/17 at 11:09; Status DC Guaifenesin (MUCINEX ER with DM) 1 tab PRN Q12HRS PRN PO MUCOUS/CONGESTION; Start 06/23/17 at 20:45 Levothyroxine Sodium (Synthroid) 100 mcg DAILY07 PO ; Start 06/24/17 at 07:00; Stop 06/24/17 at 07:00; Status DC Potassium Chloride (Klor-Con) 40 meq QID PO ; Start 06/23/17 at 21:00; Stop at 22:13; Status DC Propafenone HCl (Rythmol) 150 mg BID PO Last administered on 06/29/17 09:43; Start 06/23/17 at 21:00 Spironolactone (Aldactone) 25 mg BID94 PO Last administered on 06/26/17 08:20; Start 06/24/17 at 09:00; Stop 06/26/17 at 12:34; Status DC Tramadol HCl (Ultram) 50 mg PRN Q6HRS PRN PO PAIN Last administered on 09:50; Start 06/23/17 at 20:45 Trazodone HCl (Desyrel) 25 mg HS PO Last administered on 06/28/17 20:41; Start 06/23/17 at 21:00 Warfarin Sodium (Coumadin) 9 mg DAILY16 PO ; Start 06/24/17 at 16:00; Stop 06/24 at 16:00; Status DC Non-Formulary Medication 1,000 mg BID PO ; Start 06/23/17 at 21:00; Stop at 21:00; Status DC Calcium/Vitamin D (Oscal D 500mg/ 200uts) 1 tab BIDAFTMEAL PO Last administered on 06/29/17 09:43; Start 06/24/17 at 09:00 Cetirizine HCl (ZyrTEC) 10 mg PRN DAILY PRN PO ALLERGIES; Start 06/24/17 at 09: 00 Fish Oil (Fish Oil) 1,000 mg DAILY PO Last administered on 06/29/17 09:43; Start 06/24/17 at 09:00 Pantoprazole Sodium (Protonix) 40 mg DAILYAC PO Last administered on 06/29/17 09:43; Start 06/24/17 at 07:30 Paroxetine HCl (Paxil) 20 mg DAILY PO Last administered on 06/29/17 09:43; Start 06/24/17 at 09:00 Artificial Tears (Artificial Tears) 1 drop DAILY OU Last administered on 08:24; Start 06/24/17 at 09:00; Stop 06/29/17 at 10:24; Status DC Hydroxychloroquine Sulfate (Plaquenil) 200 mg DAILY08 PO Last administered on 09:43; Start 06/24/17 at 09:00 Ferrous Sulfate (Feosol) 325 mg DAILYWBKFT PO Last administered on 06/29/17 09: 42; Start 06/24/17 at 08:00 Multivitamins/ Minerals (I-Cristiano) 1 tab BID PO Last administered on 06/29/17 09: 42; Start 06/24/17 at 09:00 Methotrexate (Rheumatrex) 17.5 mg We@0900 PO Last administered on 06/26/17 08: 38; Start 06/26/17 at 09:00 Warfarin Sodium (Coumadin Per Pharmacy) 1 each PRN DAILY PRN MC SEE COMMENTS Last administered on 06/29/17 11:57; Start 06/23/17 at 21:00 Calcium Gluconate (Calcium Gluconate) 1,000 mg 1X ONCE IVP Last administered on 06/23/17 21:42; Start 06/23/17 at 21:30; Stop 06/23/17 at 21:31; Status DC Dextrose (Dextrose 50%-Water Syringe) 25 gm 1X ONCE IV Last administered on 22:00; Start 06/23/17 at 21:30; Stop 06/23/17 at 21:31; Status DC Insulin Human Regular (NovoLIN R VIAL) 10 unit 1X ONCE IV Last administered on 06/23/17 21:58; Start 06/23/17 at 21:30; Stop 06/23/17 at 21:31; Status DC Sodium Bicarbonate 50 meq 1X ONCE IV Last administered on 06/23/17 21:49; Start 06/23/17 at 21:45; Stop 06/23/17 at 21:46; Status DC Sodium Bicarbonate 150 meq/Dextrose 1,150 ml @ 100 mls/hr [id number] IV Last administered on 06/23/17 22:39; Start 06/23/17 at 22:30; Stop 06/24/17 at 11:09 ; Status DC Sodium Polystyrene Sulfonate (Kayexalate) 30 gm 1X ONCE PO Last administered on 06/23/17 22:37; Start 06/23/17 at 22:30; Stop 06/23/17 at 22:31; Status DC Sodium Polystyrene Sulfonate (Kayexalate) 15 gm 1X PRN PRN PO K+ >6 4 HOURS AFTER INITIAL DOSE; Start 06/23/17 at 22:45; Stop 06/25/17 at 08:47; Status DC Fentanyl Citrate (Fentanyl 2ml Vial) 50 mcg PRN Q2HR PRN IV PAIN; Start at 23:30; Stop 06/24/17 at 23:29; Status DC Acetaminophen (Tylenol) 650 mg PRN Q4HRS PRN PO FEVER Last administered on 06/24 20:27; Start 06/23/17 at 23:30; Stop 06/24/17 at 23:29; Status DC Levothyroxine Sodium (Synthroid) 100 mcg DAILY08 PO Last administered on 09:43; Start 06/24/17 at 08:00 Phytonadione (Mephyton) 2.5 mg 1X ONCE PO Last administered on 06/24/17 06:06 ; Start 06/24/17 at 06:00; Stop 06/24/17 at 06:01; Status DC Potassium Chloride (Klor-Con) 40 meq 1X ONCE PO Last administered on 06:06; Start 06/24/17 at 06:00; Stop 06/24/17 at 06:01; Status DC Potassium Chloride (Klor-Con) 40 meq 1X ONCE PO Last administered on 09:43; Start 06/24/17 at 09:45; Stop 06/24/17 at 09:46; Status DC Potassium Chloride (Klor-Con) 40 meq 1X ONCE PO Last administered on 15:31; Start 06/24/17 at 14:00; Stop 06/24/17 at 14:01; Status DC Warfarin Sodium (Coumadin - No Dose Today) 1 each 1X WARF ONCE MC Last administered on 06/24/17 10:19; Start 06/24/17 at 16:00; Stop 06/24/17 at 16:01 ; Status DC Magnesium Sulfate/ Dextrose 50 ml @ 25 mls/hr PRN DAILY PRN IV for Mag < 1.7 on am labs; Start 06/24/17 at 11:00 Potassium Chloride 40 meq/ Sodium Chloride 1,020 ml @ 75 mls/hr [id number] IV Last administered on 06/25/17 03:22; Start 06/24/17 at 12:00; Stop 06/25/17 at 08 :47; Status DC Potassium Chloride 50 ml @ 25 mls/hr Q2HR IV Last administered on 06/25/17 03: 21; Start 06/24/17 at 20:00; Stop 06/25/17 at 07:59; Status DC Enoxaparin Sodium (Lovenox Per Pharmacy Prophylaxis Dosing) 1 each PRN DAILY PRN MC SEE COMMENTS; Start 06/25/17 at 09:00 Enoxaparin Sodium (Lovenox 30mg Syringe) 30 mg Q24H SQ Last administered on 06/29 09:43; Start 06/25/17 at 09:00 Warfarin Sodium (Coumadin) 6 mg 1X WARF ONCE PO Last administered on 06/25/17 17:08; Start 06/25/17 at 16:00; Stop 06/25/17 at 16:01; Status DC Potassium Chloride (Klor-Con) 20 meq 1X ONCE PO Last administered on 06/25/17 21:07; Start 06/25/17 at 20:00; Stop 06/25/17 at 20:01; Status DC Potassium Chloride 100 ml @ 100 mls/hr Q1H IV Last administered on 06/26/17 09 :39; Start 06/26/17 at 05:30; Stop 06/26/17 at 09:29; Status DC Potassium Chloride (Klor-Con) 40 meq 1X ONCE PO Last administered on 06/26/17 09:40; Start 06/26/17 at 09:30; Stop 06/26/17 at 09:33; Status DC Potassium Chloride (Klor-Con) 40 meq 1X ONCE PO Last administered on 06/26/17 11:30; Start 06/26/17 at 11:30; Stop 06/26/17 at 11:31; Status DC Warfarin Sodium (Coumadin) 8 mg 1X WARF ONCE PO Last administered on 06/26/17 17:16; Start 06/26/17 at 16:00; Stop 06/26/17 at 16:01; Status DC Potassium Chloride (Klor-Con) 40 meq TIDWMEALS PO Last administered on 16:54; Start 06/27/17 at 08:00; Stop 06/27/17 at 18:00; Status DC Warfarin Sodium (Coumadin) 9 mg 1X WARF ONCE PO Last administered on 06/27/17 16:53; Start 06/27/17 at 16:00; Stop 06/27/17 at 16:01; Status DC Warfarin Sodium (Coumadin) 6 mg 1X WARF ONCE PO Last administered on 06/28/17 15:57; Start 06/28/17 at 16:00; Stop 06/28/17 at 16:01; Status DC Bisacodyl (Dulcolax Tab) 5 mg PRN DAILY PRN PO CONSTIPATION Last administered on 06/29/17 09:43; Start 06/28/17 at 15:45 Artificial Tears (Artificial Tears) 1 drop HS OU ; Start 06/29/17 at 21:00 Potassium Chloride (Klor-Con) 40 meq 1X ONCE PO ; Start 06/29/17 at 11:15; Stop 06/29/17 at 11:16; Status UNV Potassium Chloride (KCl Oral Soln) 40 meq Q4H PO Last administered on 06/29/17 13:14; Start 06/29/17 at 11:30; Stop 06/29/17 at 15:31 Magnesium Sulfate/ Dextrose 50 ml @ 25 mls/hr 1X ONCE IV ; Start 06/29/17 at 11: 15; Stop 06/29/17 at 13:14; Status UNV Warfarin Sodium (Coumadin) 5 mg 1X WARF ONCE PO ; Start 06/29/17 at 16:00; Stop 06/29/17 at 16:01 Active Scripts Active Reported Methotrexate (Methotrexate Sodium) 2.5 Mg Tablet 7 Tab PO SATURDAY [hydroxyl-chloroquine] 200 Mg PO DAILY08 Calcium + Vitamin D Tablet (Calcium Carbonate/Vitamin D3) 1 Each Tablet 1 Each PO BID Furosemide 80 Mg Tablet 1 Tab PO BID Claritin (Loratadine) 10 Mg Tablet 1 Tab PO DAILY PRN Coumadin (Warfarin Sodium) 6 Mg Tablet 1.5 Tab PO ,MO Coumadin (Warfarin Sodium) 6 Mg Tablet 6 Mg PO ,,,SA,DUNCAN Klor-Con M20 (Potassium Chloride) 20 Meq Tab.er.prt 40 Meq PO QID Acetaminophen 500 Mg Tablet 1 Tab PO PRN Q6HRS PRN Mucinex Dm Er 600-30 Mg Tablet (Guaifenesin/Dextromethorphan) 1 Each Tab.er.12h 1 Tab PO PRN Q12HRS Trazodone Hcl 50 Mg Tablet 25 Mg PO HS Propafenone Hcl 150 Mg Tablet 150 Mg PO BID Systane 0.3-0.4% Eye Drops (Propylene Glycol/Peg 400/Pf) 1 Each Droperette 1 Each OP DAILY Xanax (Alprazolam) 0.25 Mg Tablet 1 Tab PO PRN BID PRN Biotin 1 Mg Capsule 1,000 Mg PO BID [lutein] 1 Tab BID [Iron ] 1 Tab DAILY Aldactone (Spironolactone) 25 Mg Tablet 1 Tab PO BID Omeprazole 40 Mg Capsule.dr 40 Mg PO DAILY Tramadol Hcl 50 Mg Tablet 50 Mg PO PRN Q6HRS PRN Fish Oil 1,000 Mg Softgel ([place]-3 Fatty Acids/Fish Oil) 1 Each Capsule 1 Each PO DAILY Allopurinol 100 Mg Tablet 100 Mg PO DAILY Paxil (Paroxetine Hcl) 40 Mg Tablet 20 Mg PO DAILY Levothyroxine Sodium 100 Mcg Tablet 100 Mcg PO DAILY Vitals/I & O Vital Sign - Last 24 Hours 06/28/17 06/28/17 06/28/17 06/28/17 14:43 16:31 19:11 19:14 Temp 97.3 98.4 97.3 98.4 Pulse 84 90 Resp 18 18 18 B/P (MAP) 96/50 (65) 100/57 (71) Pulse Ox 95 95 98 O2 Delivery Room Air Room Air Room Air Room Air 06/28/17 06/28/17 06/29/17 06/29/17 20:41 22:52 03:15 04:27 Temp 97.9 98.1 97.9 98.1 Pulse 90 90 88 Resp 16 16 16 B/P (MAP) 100/57 92/55 (67) 109/69 (82) Pulse Ox 98 99 98 O2 Delivery Room Air Room Air Room Air 06/29/17 06/29/17 06/29/17 06/29/17 07:00 07:29 09:43 09:50 Temp 97.4 97.4 Pulse 83 83 Resp 17 18 B/P (MAP) 105/60 (75) 105/60 Pulse Ox 100 100 O2 Delivery Room Air Room Air Room Air 06/29/17 06/29/17 10:50 11:00 Temp 97.7 97.7 Pulse 80 Resp 18 19 B/P (MAP) 99/57 (71) Pulse Ox 100 100 O2 Delivery Room Air Room Air Intake and Output 06/28/17 06/28/17 06/29/17 15:00 23:00 07:00 Intake Total 650 ml Balance 650 ml Images EEG 06/28: normal DYLAN GALVAN MD Jun 29, 2017 13:43
[2017-06-29] MEDS: ACETAMINOPHEN 500 MG TABLET PO PRN ×2 (14:04→20:30)
[2017-06-29 15:00] VITALS: BP 95/54
[2017-06-29] MEDS ORDERED: WARFARIN 5 MG TABLET. PO ONE (16:00)
[2017-06-29] MEDS: MAGNESIUM HYDROXIDE 2,400 MG/30 ML ORAL.SUSP. PO PRN (16:29)
--- NOTE | 2017-06-29 16:45 | PDOC ---
PROGRESS NOTES Subjective Subjective Chin feels weak, fatigued and her tremors are getting worse. Her potassium is low again. Objective Objective Vital Signs Date Time Temp Pulse Resp B/P (MAP) Pulse Ox O2 Delivery O2 Flow Rate FiO2 06/29/17 15:00 97.7 86 19 95/54 (68) 100 Room Air 97.7 Intake and Output 06/29/17 07:00 Intake Total 650 ml Balance 650 ml Intake Oral 650 ml # Voids 6 # Bowel Movements 1 Physical Exam Physical Exam No significant changes in cardiac exam Assessment Assessment The patient's potassium levels are up and down, I think that this is due to the renal situation. But overall I think that she is gradually doing better. I agree with the potassium replacement. If she is looking good I would DC the triple-lumen catheter tomorrow and if stable home on Saturday. Comment Review of Relevant I have reviewed the following items leila (where applicable) has been applied. Labs Laboratory Tests Test 06/28/17 06:20 06/29/17 06:30 Prothrombin Time 21.6 SEC (11.7-14.0) 27.0 SEC (11.7-14.0) Prothromb Time International Ratio 2.0 (0.8-1.1) 2.7 (0.8-1.1) Sodium Level 138 mmol/L (136-145) 138 mmol/L (136-145) Potassium Level 3.5 mmol/L (3.5-5.1) 3.0 mmol/L (3.5-5.1) Chloride Level 102 mmol/L (98-107) 101 mmol/L (98-107) Carbon Dioxide Level 32 mmol/L (21-32) 30 mmol/L (21-32) Anion Gap 4 (6-14) 7 (6-14) Blood Urea Nitrogen 37 mg/dL (7-20) 39 mg/dL (7-20) Creatinine 1.3 mg/dL (0.6-1.0) 1.0 mg/dL (0.6-1.0) Estimated GFR (Cockcroft-Gault) 39.8 53.9 Glucose Level 85 mg/dL (70-99) 77 mg/dL (70-99) Calcium Level 8.2 mg/dL (8.5-10.1) 8.1 mg/dL (8.5-10.1) Phosphorus Level 2.1 mg/dL (2.6-4.7) 2.4 mg/dL (2.6-4.7) Albumin 2.5 g/dL (3.4-5.0) 2.4 g/dL (3.4-5.0) Laboratory Tests Test 06/29/17 06:30 Prothrombin Time 27.0 SEC (11.7-14.0) Prothromb Time International Ratio 2.7 (0.8-1.1) Sodium Level 138 mmol/L (136-145) Potassium Level 3.0 mmol/L (3.5-5.1) Chloride Level 101 mmol/L (98-107) Carbon Dioxide Level 30 mmol/L (21-32) Anion Gap 7 (6-14) Blood Urea Nitrogen 39 mg/dL (7-20) Creatinine 1.0 mg/dL (0.6-1.0) Estimated GFR (Cockcroft-Gault) 53.9 Glucose Level 77 mg/dL (70-99) Calcium Level 8.1 mg/dL (8.5-10.1) Phosphorus Level 2.4 mg/dL (2.6-4.7) Albumin 2.4 g/dL (3.4-5.0) Medications Current Medications Acetaminophen (Tylenol) 500 mg PRN Q6HRS PRN PO MILD PAIN / TEMP Last administered on 06/29/17 14:04; Start 06/23/17 at 20:45 Allopurinol (Zyloprim) 100 mg DAILY PO Last administered on 06/29/17 09:42; Start 06/24/17 at 09:00 Alprazolam (Xanax) 0.25 mg PRN BID PRN PO ANXIETY / AGITATION Last administered on 06/29/17 09:49; Start 06/23/17 at 20:45 Furosemide (Lasix) 80 mg BID94 PO Last administered on 06/24/17 08:25; Start 06/24/17 at 09:00; Stop 06/24/17 at 11:09; Status DC Guaifenesin (MUCINEX ER with DM) 1 tab PRN Q12HRS PRN PO MUCOUS/CONGESTION; Start 06/23/17 at 20:45 Levothyroxine Sodium (Synthroid) 100 mcg DAILY07 PO ; Start 06/24/17 at 07:00; Stop 06/24/17 at 07:00; Status DC Potassium Chloride (Klor-Con) 40 meq QID PO ; Start 06/23/17 at 21:00; Stop at 22:13; Status DC Propafenone HCl (Rythmol) 150 mg BID PO Last administered on 06/29/17 09:43; Start 06/23/17 at 21:00 Spironolactone (Aldactone) 25 mg BID94 PO Last administered on 06/26/17 08:20; Start 06/24/17 at 09:00; Stop 06/26/17 at 12:34; Status DC Tramadol HCl (Ultram) 50 mg PRN Q6HRS PRN PO PAIN Last administered on 09:50; Start 06/23/17 at 20:45 Trazodone HCl (Desyrel) 25 mg HS PO Last administered on 06/28/17 20:41; Start 06/23/17 at 21:00 Warfarin Sodium (Coumadin) 9 mg DAILY16 PO ; Start 06/24/17 at 16:00; Stop 06/24 at 16:00; Status DC Non-Formulary Medication 1,000 mg BID PO ; Start 06/23/17 at 21:00; Stop at 21:00; Status DC Calcium/Vitamin D (Oscal D 500mg/ 200uts) 1 tab BIDAFTMEAL PO Last administered on 06/29/17 16:29; Start 06/24/17 at 09:00 Cetirizine HCl (ZyrTEC) 10 mg PRN DAILY PRN PO ALLERGIES; Start 06/24/17 at 09: 00 Fish Oil (Fish Oil) 1,000 mg DAILY PO Last administered on 06/29/17 09:43; Start 06/24/17 at 09:00 Pantoprazole Sodium (Protonix) 40 mg DAILYAC PO Last administered on 06/29/17 09:43; Start 06/24/17 at 07:30 Paroxetine HCl (Paxil) 20 mg DAILY PO Last administered on 06/29/17 09:43; Start 06/24/17 at 09:00 Artificial Tears (Artificial Tears) 1 drop DAILY OU Last administered on 08:24; Start 06/24/17 at 09:00; Stop 06/29/17 at 10:24; Status DC Hydroxychloroquine Sulfate (Plaquenil) 200 mg DAILY08 PO Last administered on 09:43; Start 06/24/17 at 09:00 Ferrous Sulfate (Feosol) 325 mg DAILYWBKFT PO Last administered on 06/29/17 09: 42; Start 06/24/17 at 08:00 Multivitamins/ Minerals (I-Cristiano) 1 tab BID PO Last administered on 06/29/17 09: 42; Start 06/24/17 at 09:00 Methotrexate (Rheumatrex) 17.5 mg We@0900 PO Last administered on 06/26/17 08: 38; Start 06/26/17 at 09:00 Warfarin Sodium (Coumadin Per Pharmacy) 1 each PRN DAILY PRN MC SEE COMMENTS Last administered on 06/29/17 11:57; Start 06/23/17 at 21:00 Calcium Gluconate (Calcium Gluconate) 1,000 mg 1X ONCE IVP Last administered on 06/23/17 21:42; Start 06/23/17 at 21:30; Stop 06/23/17 at 21:31; Status DC Dextrose (Dextrose 50%-Water Syringe) 25 gm 1X ONCE IV Last administered on 22:00; Start 06/23/17 at 21:30; Stop 06/23/17 at 21:31; Status DC Insulin Human Regular (NovoLIN R VIAL) 10 unit 1X ONCE IV Last administered on 06/23/17 21:58; Start 06/23/17 at 21:30; Stop 06/23/17 at 21:31; Status DC Sodium Bicarbonate 50 meq 1X ONCE IV Last administered on 06/23/17 21:49; Start 06/23/17 at 21:45; Stop 06/23/17 at 21:46; Status DC Sodium Bicarbonate 150 meq/Dextrose 1,150 ml @ 100 mls/hr [id number] IV Last administered on 06/23/17 22:39; Start 06/23/17 at 22:30; Stop 06/24/17 at 11:09 ; Status DC Sodium Polystyrene Sulfonate (Kayexalate) 30 gm 1X ONCE PO Last administered on 06/23/17 22:37; Start 06/23/17 at 22:30; Stop 06/23/17 at 22:31; Status DC Sodium Polystyrene Sulfonate (Kayexalate) 15 gm 1X PRN PRN PO K+ >6 4 HOURS AFTER INITIAL DOSE; Start 06/23/17 at 22:45; Stop 06/25/17 at 08:47; Status DC Fentanyl Citrate (Fentanyl 2ml Vial) 50 mcg PRN Q2HR PRN IV PAIN; Start at 23:30; Stop 06/24/17 at 23:29; Status DC Acetaminophen (Tylenol) 650 mg PRN Q4HRS PRN PO FEVER Last administered on 06/24 20:27; Start 06/23/17 at 23:30; Stop 06/24/17 at 23:29; Status DC Levothyroxine Sodium (Synthroid) 100 mcg DAILY08 PO Last administered on 09:43; Start 06/24/17 at 08:00 Phytonadione (Mephyton) 2.5 mg 1X ONCE PO Last administered on 06/24/17 06:06 ; Start 06/24/17 at 06:00; Stop 06/24/17 at 06:01; Status DC Potassium Chloride (Klor-Con) 40 meq 1X ONCE PO Last administered on 06:06; Start 06/24/17 at 06:00; Stop 06/24/17 at 06:01; Status DC Potassium Chloride (Klor-Con) 40 meq 1X ONCE PO Last administered on 09:43; Start 06/24/17 at 09:45; Stop 06/24/17 at 09:46; Status DC Potassium Chloride (Klor-Con) 40 meq 1X ONCE PO Last administered on 15:31; Start 06/24/17 at 14:00; Stop 06/24/17 at 14:01; Status DC Warfarin Sodium (Coumadin - No Dose Today) 1 each 1X WARF ONCE MC Last administered on 06/24/17 10:19; Start 06/24/17 at 16:00; Stop 06/24/17 at 16:01 ; Status DC Magnesium Sulfate/ Dextrose 50 ml @ 25 mls/hr PRN DAILY PRN IV for Mag < 1.7 on am labs; Start 06/24/17 at 11:00 Potassium Chloride 40 meq/ Sodium Chloride 1,020 ml @ 75 mls/hr [id number] IV Last administered on 06/25/17 03:22; Start 06/24/17 at 12:00; Stop 06/25/17 at 08 :47; Status DC Potassium Chloride 50 ml @ 25 mls/hr Q2HR IV Last administered on 06/25/17 03: 21; Start 06/24/17 at 20:00; Stop 06/25/17 at 07:59; Status DC Enoxaparin Sodium (Lovenox Per Pharmacy Prophylaxis Dosing) 1 each PRN DAILY PRN MC SEE COMMENTS; Start 06/25/17 at 09:00 Enoxaparin Sodium (Lovenox 30mg Syringe) 30 mg Q24H SQ Last administered on 06/29 09:43; Start 06/25/17 at 09:00 Warfarin Sodium (Coumadin) 6 mg 1X WARF ONCE PO Last administered on 06/25/17 17:08; Start 06/25/17 at 16:00; Stop 06/25/17 at 16:01; Status DC Potassium Chloride (Klor-Con) 20 meq 1X ONCE PO Last administered on 06/25/17 21:07; Start 06/25/17 at 20:00; Stop 06/25/17 at 20:01; Status DC Potassium Chloride 100 ml @ 100 mls/hr Q1H IV Last administered on 06/26/17 09 :39; Start 06/26/17 at 05:30; Stop 06/26/17 at 09:29; Status DC Potassium Chloride (Klor-Con) 40 meq 1X ONCE PO Last administered on 06/26/17 09:40; Start 06/26/17 at 09:30; Stop 06/26/17 at 09:33; Status DC Potassium Chloride (Klor-Con) 40 meq 1X ONCE PO Last administered on 06/26/17 11:30; Start 06/26/17 at 11:30; Stop 06/26/17 at 11:31; Status DC Warfarin Sodium (Coumadin) 8 mg 1X WARF ONCE PO Last administered on 06/26/17 17:16; Start 06/26/17 at 16:00; Stop 06/26/17 at 16:01; Status DC Potassium Chloride (Klor-Con) 40 meq TIDWMEALS PO Last administered on 16:54; Start 06/27/17 at 08:00; Stop 06/27/17 at 18:00; Status DC Warfarin Sodium (Coumadin) 9 mg 1X WARF ONCE PO Last administered on 06/27/17 16:53; Start 06/27/17 at 16:00; Stop 06/27/17 at 16:01; Status DC Warfarin Sodium (Coumadin) 6 mg 1X WARF ONCE PO Last administered on 06/28/17 15:57; Start 06/28/17 at 16:00; Stop 06/28/17 at 16:01; Status DC Bisacodyl (Dulcolax Tab) 5 mg PRN DAILY PRN PO CONSTIPATION Last administered on 06/29/17 09:43; Start 06/28/17 at 15:45 Artificial Tears (Artificial Tears) 1 drop HS OU ; Start 06/29/17 at 21:00 Potassium Chloride (Klor-Con) 40 meq 1X ONCE PO ; Start 06/29/17 at 11:15; Stop 06/29/17 at 11:16; Status UNV Potassium Chloride (KCl Oral Soln) 40 meq Q4H PO Last administered on 06/29/17 16:29; Start 06/29/17 at 11:30; Stop 06/29/17 at 15:31; Status DC Magnesium Sulfate/ Dextrose 50 ml @ 25 mls/hr 1X ONCE IV ; Start 06/29/17 at 11: 15; Stop 06/29/17 at 13:14; Status UNV Warfarin Sodium (Coumadin) 5 mg 1X WARF ONCE PO Last administered on 06/29/17 16:31; Start 06/29/17 at 16:00; Stop 06/29/17 at 16:01; Status DC Magnesium Hydroxide (Milk Of Magnesia) 2,400 mg PRN DAILY PRN PO CONSTIPATION Last administered on 06/29/17 16:29; Start 06/29/17 at 15:00 Active Scripts Active Reported Methotrexate (Methotrexate Sodium) 2.5 Mg Tablet 7 Tab PO SATURDAY [hydroxyl-chloroquine] 200 Mg PO DAILY08 Calcium + Vitamin D Tablet (Calcium Carbonate/Vitamin D3) 1 Each Tablet 1 Each PO BID Furosemide 80 Mg Tablet 1 Tab PO BID Claritin (Loratadine) 10 Mg Tablet 1 Tab PO DAILY PRN Coumadin (Warfarin Sodium) 6 Mg Tablet 1.5 Tab PO FR,MO Coumadin (Warfarin Sodium) 6 Mg Tablet 6 Mg PO ,,TH,SA,DUNCAN Klor-Con M20 (Potassium Chloride) 20 Meq Tab.er.prt 40 Meq PO QID Acetaminophen 500 Mg Tablet 1 Tab PO PRN Q6HRS PRN Mucinex Dm Er 600-30 Mg Tablet (Guaifenesin/Dextromethorphan) 1 Each Tab.er.12h 1 Tab PO PRN Q12HRS Trazodone Hcl 50 Mg Tablet 25 Mg PO HS Propafenone Hcl 150 Mg Tablet 150 Mg PO BID Systane 0.3-0.4% Eye Drops (Propylene Glycol/Peg 400/Pf) 1 Each Droperette 1 Each OP DAILY Xanax (Alprazolam) 0.25 Mg Tablet 1 Tab PO PRN BID PRN Biotin 1 Mg Capsule 1,000 Mg PO BID [lutein] 1 Tab BID [Iron ] 1 Tab DAILY Aldactone (Spironolactone) 25 Mg Tablet 1 Tab PO BID Omeprazole 40 Mg Capsule.dr 40 Mg PO DAILY Tramadol Hcl 50 Mg Tablet 50 Mg PO PRN Q6HRS PRN Fish Oil 1,000 Mg Softgel ([place]-3 Fatty Acids/Fish Oil) 1 Each Capsule 1 Each PO DAILY Allopurinol 100 Mg Tablet 100 Mg PO DAILY Paxil (Paroxetine Hcl) 40 Mg Tablet 20 Mg PO DAILY Levothyroxine Sodium 100 Mcg Tablet 100 Mcg PO DAILY Vitals/I & O Vital Sign - Last 24 Hours 06/28/17 06/28/17 06/28/17 06/28/17 19:11 19:14 20:41 22:52 Temp 98.4 97.9 98.4 97.9 Pulse 90 90 90 Resp 18 16 B/P (MAP) 100/57 (71) 100/57 92/55 (67) Pulse Ox 98 98 O2 Delivery Room Air Room Air Room Air 06/29/17 06/29/17 06/29/17 06/29/17 03:15 04:27 07:00 07:29 Temp 98.1 97.4 98.1 97.4 Pulse 88 83 Resp 16 16 17 B/P (MAP) 109/69 (82) 105/60 (75) Pulse Ox 99 98 100 O2 Delivery Room Air Room Air Room Air Room Air 06/29/17 06/29/17 06/29/17 06/29/17 09:43 09:50 10:50 11:00 Temp 97.7 97.7 Pulse 83 80 Resp 18 18 19 B/P (MAP) 105/60 99/57 (71) Pulse Ox 100 100 100 O2 Delivery Room Air Room Air Room Air 06/29/17 15:00 Temp 97.7 97.7 Pulse 86 Resp 19 B/P (MAP) 95/54 (68) Pulse Ox 100 O2 Delivery Room Air Intake and Output 06/28/17 06/28/17 06/29/17 15:00 23:00 07:00 Intake Total 650 ml Balance 650 ml Nutrition Consultation Dietary Evaluation: Recommendations by RD: Dietary education by RD Comments: po intake improves with food preferences continue with food preferences/ pt calling dietary for foods she likes Expected Outcomes/Goals: to meet > 50% est nutr needs- met, goal ongoing Interpretation of weight loss: >5% in 1 month Malnutrition Findings: Body Fat Depletion (Non Severe: Mild Depletion Weight Status: Appropriate CJ DIAL MD Jun 29, 2017 16:44
[2017-06-29 19:15] VITALS: BP 99/62
[2017-06-29] MEDS: traZODone 50 MG TABLET. PO SCH (20:29)
--- NOTE | 2017-06-29 21:37 | PDOC ---
Provider Note Provider Note RENAL F/U : ANGELIA Seen 06/28/17 Doing better No new issues. Sitting up VSS Afebrile Note dictated. Labs reviewed. CPM. DIVYA GALAN MD Jun 29, 2017 21:37
--- NOTE | 2017-06-29 21:41 | PDOC ---
Provider Note Provider Note RENAL F/U : ANGELIA. SUBJECTIVE Feels better. No new c/o. ROS neg on 10 point scale. Doign and feeling OK voerall CVS: no Orthopnea, no CP RESP: no SOB, min WALDROP (min ambulation) GI: no Nausea, no Vomiting : no Dysuria, no Urgency OBJECTIVE Vital Signs, I/Os, Meds : Reviewed. Intake and Output 06/28/17 07:00 Intake Total 1975 ml Output Total 4825 ml Balance -2850 ml Intake Oral 660 ml IV Total 1315 ml Output Urine Total 4825 ml # Voids 3 PHYSICAL EXAM Physical Exam General Appearance: Awake Alert Oriented x 3 In no Distress Eyes: VIsion Unchanged Conjunctiva Normal EN: No EN Drainage Mucous Memb. moist Neck: no JVD no JVP Supple no Thyromegaly CVS: S1 S2 ? Murmur No Gallop No Rub tr Edema Resp: few alana basal rt Rales no Rhonchi no Acc. Muscle use GI: BS +ve NO Bruit Non Tender Non Distended : no CVA tenderness; no Suprapubic Tenderness Assessment & Plan CKD III: (HTN/ DM /NS) Current Fluid and E-lyte status does not necessitate emergent need for Dialysis. ? [place] due to worsening CO asso with drop in EF vs dueto BERENICE (less likely since no significant ^ in BP) CHF on CXR - without obvious symptomatic decompensation - Gentle IVF to prevent decompensation CAD (known) - ? Need for LHC - NAC for now Improving. Home Mon per Dr. Ross. CPM. Divya Hillman M.D. DIVYA HILLMAN MD Jun 29, 2017 21:40
[2017-06-29 23:15] VITALS: BP 91/53
[2017-06-30 03:10] VITALS: BP 105/59
[2017-06-30 05:53] LABS: BASO % 1 % (0-3); EOS % 0 % (0-3); HEMATOCRIT 30.9 % (36.0-47.0); HEMOGLOBIN 10.5 g/dL (12.0-15.5); LYMPH % 16 % (24-48); MEAN CORPUSCULAR HEMOGLOBIN 36 pg (25-35); MEAN CORPUSCULAR HGB CONC 34 g/dL (31-37); MEAN CORPUSCULAR VOLUME 106 fL (79-100); MONO % 5 % (0-9); NEUT % 79 % (31-73); PLATELET COUNT 133 x10^3/uL (140-400); RED BLOOD COUNT 2.91 x10^6/uL (3.50-5.40); RED CELL DISTRIBUTION WIDTH 15.9 % (11.5-14.5); WHITE BLOOD COUNT 6.4 x10^3/uL (4.0-11.0)
[2017-06-30 06:01] LABS: INR 2.8 (0.8-1.1); PROTHROMBIN TIME PATIENT 27.9 SEC (11.7-14.0)
[2017-06-30 06:32] LABS: ALBUMIN 2.5 g/dL (3.4-5.0); ALBUMIN/GLOBULIN RATIO 0.8 (1.0-1.7); GFR 53.9; MAGNESIUM 2.3 mg/dL (1.8-2.4); PHOSPHORUS 2.2 mg/dL (2.6-4.7); POTASSIUM 4.1 mmol/L (3.5-5.1); TOTAL BILIRUBIN 0.2 mg/dL (0.2-1.0); TOTAL PROTEIN 5.6 g/dL (6.4-8.2)
[2017-06-30 07:00] VITALS: BP 99/56
[2017-06-30] MEDS: LEVOTHYROXINE 100 MCG TABLET PO SCH (08:19)
[2017-06-30] MEDS: traMADol 50 MG TABLET PO PRN ×3 (08:19→21:32)
[2017-06-30] MEDS: MAGNESIUM HYDROXIDE 2,400 MG/30 ML ORAL.SUSP. PO PRN (08:19)
[2017-06-30] MEDS: ALLOPURINOL 100 MG TABLET. PO SCH (08:20)
[2017-06-30] MEDS: PANTOPRAZOLE 40 MG TABLET.DR. PO SCH (08:20)
[2017-06-30] MEDS: HYDROXYCHLOROQUINE 200 MG TABLET PO SCH (08:20)
[2017-06-30] MEDS: CALCIUM CARB/VIT D3 500/200 TABLET. PO SCH ×2 (08:20→16:02)
[2017-06-30] MEDS: PROPAFENONE 150 MG TABLET. PO SCH ×2 (08:20→21:33)
[2017-06-30] MEDS: MULTIVITAMIN I-VITE TABLET. PO SCH ×2 (08:20→21:32)
[2017-06-30] MEDS: OMEGA-3 FATTY ACIDS/FISH OIL 1,000 MG CAPSULE. PO SCH (08:20)
[2017-06-30] MEDS: FERROUS SULFATE 325 MG TABLET. PO SCH (08:20)
[2017-06-30] MEDS: PARoxetine 20 MG TABLET PO SCH (08:21)
[2017-06-30] MEDS: ALPRAZolam 0.25 MG TABLET PO PRN ×2 (09:34→21:36)
[2017-06-30 11:00] VITALS: BP 99/63
--- NOTE | 2017-06-30 11:25 | PDOC ---
PROGRESS NOTES Chief Complaint Chief Complaint FTT Uremia hypokalemia ASSESSMENT AND PLAN: 1. Weakness, shortness breath, nausea, abdominal pain and generalized debility : improving. OT/PT eval for rehab 2. AL/uremia: 2/2 dehydration. creat at baseline, BUN still quite elevated. monitor closely off fluids or lasix; spironolactone started 3. CHF: chronic systolic (echo 06/24 with EF 40%, mod aortic stenosis/regurg). Dr Ross following. adjusting home lasix dose (previously on 80 bid) 4. Hyponatremia: resolved 5. Hyperkalemia, now hypokalemia: prob 2/2 recovering renal fxn. aggressively repleted, normal today. monitor 7. Hypocalcemia: replete; Vit D level pending 8. Toe pain (corn): consult Dr Stephens - not coming to hospital 9. Acoustic neuroma L: O/P NS F/U; appreciate Dr Dale's input 9. Dispo: dc when CV stable History of Present Illness History of Present Illness breathing ok. no new issues up to chair, no new complaint Vitals Vitals Vital Signs Date Time Temp Pulse Resp B/P (MAP) Pulse Ox O2 Delivery O2 Flow Rate FiO2 06/30/17 09:21 18 96 Room Air 06/30/17 08:20 84 123/66 06/30/17 07:00 98.4 98.4 Physical Exam General: Alert, Oriented X3, Cooperative, No acute distress Heart: Regular rate, Normal S1, Normal S2, Other (no change in diastolic murmur ) Lungs: Clear Abdomen: Normal bowel sounds, Soft, No tenderness Extremities: No edema Skin: No rashes, No significant lesion Labs LABS Laboratory Tests Test 06/30/17 05:45 White Blood Count 6.4 x10^3/uL (4.0-11.0) Red Blood Count 2.91 x10^6/uL (3.50-5.40) Hemoglobin 10.5 g/dL (12.0-15.5) Hematocrit 30.9 % (36.0-47.0) Mean Corpuscular Volume 106 fL (79-100) Mean Corpuscular Hemoglobin 36 pg (25-35) Mean Corpuscular Hemoglobin Concent 34 g/dL (31-37) Red Cell Distribution Width 15.9 % (11.5-14.5) Platelet Count 133 x10^3/uL (140-400) Neutrophils (%) (Auto) 79 % (31-73) Lymphocytes (%) (Auto) 16 % (24-48) Monocytes (%) (Auto) 5 % (0-9) Eosinophils (%) (Auto) 0 % (0-3) Basophils (%) (Auto) 1 % (0-3) Neutrophils # (Auto) 5.0 x10^3uL (1.8-7.7) Lymphocytes # (Auto) 1.0 x10^3/uL (1.0-4.8) Monocytes # (Auto) 0.3 x10^3/uL (0.0-1.1) Eosinophils # (Auto) 0.0 x10^3/uL (0.0-0.7) Basophils # (Auto) 0.0 x10^3/uL (0.0-0.2) Prothrombin Time 27.9 SEC (11.7-14.0) Prothromb Time International Ratio 2.8 (0.8-1.1) Sodium Level 137 mmol/L (136-145) Potassium Level 4.1 mmol/L (3.5-5.1) Chloride Level 102 mmol/L (98-107) Carbon Dioxide Level 29 mmol/L (21-32) Anion Gap 6 (6-14) Blood Urea Nitrogen 33 mg/dL (7-20) Creatinine 1.0 mg/dL (0.6-1.0) Estimated GFR (Cockcroft-Gault) 53.9 BUN/Creatinine Ratio 33 (6-20) Glucose Level 90 mg/dL (70-99) Calcium Level 8.0 mg/dL (8.5-10.1) Phosphorus Level 2.2 mg/dL (2.6-4.7) Magnesium Level 2.3 mg/dL (1.8-2.4) Total Bilirubin 0.2 mg/dL (0.2-1.0) Aspartate Amino Transf (AST/SGOT) 35 U/L (15-37) Alanine Aminotransferase (ALT/SGPT) 32 U/L (14-59) Alkaline Phosphatase 52 U/L (46-116) Total Protein 5.6 g/dL (6.4-8.2) Albumin 2.5 g/dL (3.4-5.0) Albumin/Globulin Ratio 0.8 (1.0-1.7) Review of Systems Review of Systems no n.v.d Assessment and Plan Assessmemt and Plan Problems Medical Problems: (1) Hyperkalemia Status: Acute (2) Renal failure Status: Acute Problems: Comment Review of Relevant I have reviewed the following items leila (where applicable) has been applied. Labs Laboratory Tests Test 06/29/17 06:30 06/30/17 05:45 Prothrombin Time 27.0 SEC (11.7-14.0) 27.9 SEC (11.7-14.0) Prothromb Time International Ratio 2.7 (0.8-1.1) 2.8 (0.8-1.1) Sodium Level 138 mmol/L (136-145) 137 mmol/L (136-145) Potassium Level 3.0 mmol/L (3.5-5.1) 4.1 mmol/L (3.5-5.1) Chloride Level 101 mmol/L (98-107) 102 mmol/L (98-107) Carbon Dioxide Level 30 mmol/L (21-32) 29 mmol/L (21-32) Anion Gap 7 (6-14) 6 (6-14) Blood Urea Nitrogen 39 mg/dL (7-20) 33 mg/dL (7-20) Creatinine 1.0 mg/dL (0.6-1.0) 1.0 mg/dL (0.6-1.0) Estimated GFR (Cockcroft-Gault) 53.9 53.9 Glucose Level 77 mg/dL (70-99) 90 mg/dL (70-99) Calcium Level 8.1 mg/dL (8.5-10.1) 8.0 mg/dL (8.5-10.1) Phosphorus Level 2.4 mg/dL (2.6-4.7) 2.2 mg/dL (2.6-4.7) Albumin 2.4 g/dL (3.4-5.0) 2.5 g/dL (3.4-5.0) White Blood Count 6.4 x10^3/uL (4.0-11.0) Red Blood Count 2.91 x10^6/uL (3.50-5.40) Hemoglobin 10.5 g/dL (12.0-15.5) Hematocrit 30.9 % (36.0-47.0) Mean Corpuscular Volume 106 fL (79-100) Mean Corpuscular Hemoglobin 36 pg (25-35) Mean Corpuscular Hemoglobin Concent 34 g/dL (31-37) Red Cell Distribution Width 15.9 % (11.5-14.5) Platelet Count 133 x10^3/uL (140-400) Neutrophils (%) (Auto) 79 % (31-73) Lymphocytes (%) (Auto) 16 % (24-48) Monocytes (%) (Auto) 5 % (0-9) Eosinophils (%) (Auto) 0 % (0-3) Basophils (%) (Auto) 1 % (0-3) Neutrophils # (Auto) 5.0 x10^3uL (1.8-7.7) Lymphocytes # (Auto) 1.0 x10^3/uL (1.0-4.8) Monocytes # (Auto) 0.3 x10^3/uL (0.0-1.1) Eosinophils # (Auto) 0.0 x10^3/uL (0.0-0.7) Basophils # (Auto) 0.0 x10^3/uL (0.0-0.2) BUN/Creatinine Ratio 33 (6-20) Magnesium Level 2.3 mg/dL (1.8-2.4) Total Bilirubin 0.2 mg/dL (0.2-1.0) Aspartate Amino Transf (AST/SGOT) 35 U/L (15-37) Alanine Aminotransferase (ALT/SGPT) 32 U/L (14-59) Alkaline Phosphatase 52 U/L (46-116) Total Protein 5.6 g/dL (6.4-8.2) Albumin/Globulin Ratio 0.8 (1.0-1.7) Laboratory Tests Test 06/30/17 05:45 White Blood Count 6.4 x10^3/uL (4.0-11.0) Red Blood Count 2.91 x10^6/uL (3.50-5.40) Hemoglobin 10.5 g/dL (12.0-15.5) Hematocrit 30.9 % (36.0-47.0) Mean Corpuscular Volume 106 fL (79-100) Mean Corpuscular Hemoglobin 36 pg (25-35) Mean Corpuscular Hemoglobin Concent 34 g/dL (31-37) Red Cell Distribution Width 15.9 % (11.5-14.5) Platelet Count 133 x10^3/uL (140-400) Neutrophils (%) (Auto) 79 % (31-73) Lymphocytes (%) (Auto) 16 % (24-48) Monocytes (%) (Auto) 5 % (0-9) Eosinophils (%) (Auto) 0 % (0-3) Basophils (%) (Auto) 1 % (0-3) Neutrophils # (Auto) 5.0 x10^3uL (1.8-7.7) Lymphocytes # (Auto) 1.0 x10^3/uL (1.0-4.8) Monocytes # (Auto) 0.3 x10^3/uL (0.0-1.1) Eosinophils # (Auto) 0.0 x10^3/uL (0.0-0.7) Basophils # (Auto) 0.0 x10^3/uL (0.0-0.2) Prothrombin Time 27.9 SEC (11.7-14.0) Prothromb Time International Ratio 2.8 (0.8-1.1) Sodium Level 137 mmol/L (136-145) Potassium Level 4.1 mmol/L (3.5-5.1) Chloride Level 102 mmol/L (98-107) Carbon Dioxide Level 29 mmol/L (21-32) Anion Gap 6 (6-14) Blood Urea Nitrogen 33 mg/dL (7-20) Creatinine 1.0 mg/dL (0.6-1.0) Estimated GFR (Cockcroft-Gault) 53.9 BUN/Creatinine Ratio 33 (6-20) Glucose Level 90 mg/dL (70-99) Calcium Level 8.0 mg/dL (8.5-10.1) Phosphorus Level 2.2 mg/dL (2.6-4.7) Magnesium Level 2.3 mg/dL (1.8-2.4) Total Bilirubin 0.2 mg/dL (0.2-1.0) Aspartate Amino Transf (AST/SGOT) 35 U/L (15-37) Alanine Aminotransferase (ALT/SGPT) 32 U/L (14-59) Alkaline Phosphatase 52 U/L (46-116) Total Protein 5.6 g/dL (6.4-8.2) Albumin 2.5 g/dL (3.4-5.0) Albumin/Globulin Ratio 0.8 (1.0-1.7) Medications Current Medications Acetaminophen (Tylenol) 500 mg PRN Q6HRS PRN PO MILD PAIN / TEMP Last administered on 06/29/17 20:30; Start 06/23/17 at 20:45 Allopurinol (Zyloprim) 100 mg DAILY PO Last administered on 06/30/17 08:20; Start 06/24/17 at 09:00 Alprazolam (Xanax) 0.25 mg PRN BID PRN PO ANXIETY / AGITATION Last administered on 06/30/17 09:34; Start 06/23/17 at 20:45 Furosemide (Lasix) 80 mg BID94 PO Last administered on 06/24/17 08:25; Start 06/24/17 at 09:00; Stop 06/24/17 at 11:09; Status DC Guaifenesin (MUCINEX ER with DM) 1 tab PRN Q12HRS PRN PO MUCOUS/CONGESTION; Start 06/23/17 at 20:45 Levothyroxine Sodium (Synthroid) 100 mcg DAILY07 PO ; Start 06/24/17 at 07:00; Stop 06/24/17 at 07:00; Status DC Potassium Chloride (Klor-Con) 40 meq QID PO ; Start 06/23/17 at 21:00; Stop at 22:13; Status DC Propafenone HCl (Rythmol) 150 mg BID PO Last administered on 06/30/17 08:20; Start 06/23/17 at 21:00 Spironolactone (Aldactone) 25 mg BID94 PO Last administered on 06/26/17 08:20; Start 06/24/17 at 09:00; Stop 06/26/17 at 12:34; Status DC Tramadol HCl (Ultram) 50 mg PRN Q6HRS PRN PO PAIN Last administered on 08:19; Start 06/23/17 at 20:45 Trazodone HCl (Desyrel) 25 mg HS PO Last administered on 06/29/17 20:29; Start 06/23/17 at 21:00 Warfarin Sodium (Coumadin) 9 mg DAILY16 PO ; Start 06/24/17 at 16:00; Stop 06/24 at 16:00; Status DC Non-Formulary Medication 1,000 mg BID PO ; Start 06/23/17 at 21:00; Stop at 21:00; Status DC Calcium/Vitamin D (Oscal D 500mg/ 200uts) 1 tab BIDAFTMEAL PO Last administered on 06/30/17 08:20; Start 06/24/17 at 09:00 Cetirizine HCl (ZyrTEC) 10 mg PRN DAILY PRN PO ALLERGIES Last administered on 20:38; Start 06/24/17 at 09:00 Fish Oil (Fish Oil) 1,000 mg DAILY PO Last administered on 06/30/17 08:20; Start 06/24/17 at 09:00 Pantoprazole Sodium (Protonix) 40 mg DAILYAC PO Last administered on 06/30/17 08:20; Start 06/24/17 at 07:30 Paroxetine HCl (Paxil) 20 mg DAILY PO Last administered on 06/30/17 08:21; Start 06/24/17 at 09:00 Artificial Tears (Artificial Tears) 1 drop DAILY OU Last administered on 08:24; Start 06/24/17 at 09:00; Stop 06/29/17 at 10:24; Status DC Hydroxychloroquine Sulfate (Plaquenil) 200 mg DAILY08 PO Last administered on 08:20; Start 06/24/17 at 09:00 Ferrous Sulfate (Feosol) 325 mg DAILYWBKFT PO Last administered on 06/30/17 08: 20; Start 06/24/17 at 08:00 Multivitamins/ Minerals (I-Cristiano) 1 tab BID PO Last administered on 06/30/17 08: 20; Start 06/24/17 at 09:00 Methotrexate (Rheumatrex) 17.5 mg We@0900 PO Last administered on 06/26/17 08: 38; Start 06/26/17 at 09:00 Warfarin Sodium (Coumadin Per Pharmacy) 1 each PRN DAILY PRN MC SEE COMMENTS Last administered on 06/29/17 11:57; Start 06/23/17 at 21:00 Calcium Gluconate (Calcium Gluconate) 1,000 mg 1X ONCE IVP Last administered on 06/23/17 21:42; Start 06/23/17 at 21:30; Stop 06/23/17 at 21:31; Status DC Dextrose (Dextrose 50%-Water Syringe) 25 gm 1X ONCE IV Last administered on 22:00; Start 06/23/17 at 21:30; Stop 06/23/17 at 21:31; Status DC Insulin Human Regular (NovoLIN R VIAL) 10 unit 1X ONCE IV Last administered on 06/23/17 21:58; Start 06/23/17 at 21:30; Stop 06/23/17 at 21:31; Status DC Sodium Bicarbonate 50 meq 1X ONCE IV Last administered on 06/23/17 21:49; Start 06/23/17 at 21:45; Stop 06/23/17 at 21:46; Status DC Sodium Bicarbonate 150 meq/Dextrose 1,150 ml @ 100 mls/hr [id number] IV Last administered on 06/23/17 22:39; Start 06/23/17 at 22:30; Stop 06/24/17 at 11:09 ; Status DC Sodium Polystyrene Sulfonate (Kayexalate) 30 gm 1X ONCE PO Last administered on 06/23/17 22:37; Start 06/23/17 at 22:30; Stop 06/23/17 at 22:31; Status DC Sodium Polystyrene Sulfonate (Kayexalate) 15 gm 1X PRN PRN PO K+ >6 4 HOURS AFTER INITIAL DOSE; Start 06/23/17 at 22:45; Stop 06/25/17 at 08:47; Status DC Fentanyl Citrate (Fentanyl 2ml Vial) 50 mcg PRN Q2HR PRN IV PAIN; Start at 23:30; Stop 06/24/17 at 23:29; Status DC Acetaminophen (Tylenol) 650 mg PRN Q4HRS PRN PO FEVER Last administered on 06/24 20:27; Start 06/23/17 at 23:30; Stop 06/24/17 at 23:29; Status DC Levothyroxine Sodium (Synthroid) 100 mcg DAILY08 PO Last administered on 08:19; Start 06/24/17 at 08:00 Phytonadione (Mephyton) 2.5 mg 1X ONCE PO Last administered on 06/24/17 06:06 ; Start 06/24/17 at 06:00; Stop 06/24/17 at 06:01; Status DC Potassium Chloride (Klor-Con) 40 meq 1X ONCE PO Last administered on 06:06; Start 06/24/17 at 06:00; Stop 06/24/17 at 06:01; Status DC Potassium Chloride (Klor-Con) 40 meq 1X ONCE PO Last administered on 09:43; Start 06/24/17 at 09:45; Stop 06/24/17 at 09:46; Status DC Potassium Chloride (Klor-Con) 40 meq 1X ONCE PO Last administered on 15:31; Start 06/24/17 at 14:00; Stop 06/24/17 at 14:01; Status DC Warfarin Sodium (Coumadin - No Dose Today) 1 each 1X WARF ONCE MC Last administered on 06/24/17 10:19; Start 06/24/17 at 16:00; Stop 06/24/17 at 16:01 ; Status DC Magnesium Sulfate/ Dextrose 50 ml @ 25 mls/hr PRN DAILY PRN IV for Mag < 1.7 on am labs; Start 06/24/17 at 11:00 Potassium Chloride 40 meq/ Sodium Chloride 1,020 ml @ 75 mls/hr [id number] IV Last administered on 06/25/17 03:22; Start 06/24/17 at 12:00; Stop 06/25/17 at 08 :47; Status DC Potassium Chloride 50 ml @ 25 mls/hr Q2HR IV Last administered on 06/25/17 03: 21; Start 06/24/17 at 20:00; Stop 06/25/17 at 07:59; Status DC Enoxaparin Sodium (Lovenox Per Pharmacy Prophylaxis Dosing) 1 each PRN DAILY PRN MC SEE COMMENTS; Start 06/25/17 at 09:00; Stop 06/30/17 at 07:30; Status DC Enoxaparin Sodium (Lovenox 30mg Syringe) 30 mg Q24H SQ Last administered on 06/29 09:43; Start 06/25/17 at 09:00; Stop 06/30/17 at 07:30; Status DC Warfarin Sodium (Coumadin) 6 mg 1X WARF ONCE PO Last administered on 06/25/17 17:08; Start 06/25/17 at 16:00; Stop 06/25/17 at 16:01; Status DC Potassium Chloride (Klor-Con) 20 meq 1X ONCE PO Last administered on 06/25/17 21:07; Start 06/25/17 at 20:00; Stop 06/25/17 at 20:01; Status DC Potassium Chloride 100 ml @ 100 mls/hr Q1H IV Last administered on 06/26/17 09 :39; Start 06/26/17 at 05:30; Stop 06/26/17 at 09:29; Status DC Potassium Chloride (Klor-Con) 40 meq 1X ONCE PO Last administered on 06/26/17 09:40; Start 06/26/17 at 09:30; Stop 06/26/17 at 09:33; Status DC Potassium Chloride (Klor-Con) 40 meq 1X ONCE PO Last administered on 06/26/17 11:30; Start 06/26/17 at 11:30; Stop 06/26/17 at 11:31; Status DC Warfarin Sodium (Coumadin) 8 mg 1X WARF ONCE PO Last administered on 06/26/17 17:16; Start 06/26/17 at 16:00; Stop 06/26/17 at 16:01; Status DC Potassium Chloride (Klor-Con) 40 meq TIDWMEALS PO Last administered on 16:54; Start 06/27/17 at 08:00; Stop 06/27/17 at 18:00; Status DC Warfarin Sodium (Coumadin) 9 mg 1X WARF ONCE PO Last administered on 06/27/17 16:53; Start 06/27/17 at 16:00; Stop 06/27/17 at 16:01; Status DC Warfarin Sodium (Coumadin) 6 mg 1X WARF ONCE PO Last administered on 06/28/17 15:57; Start 06/28/17 at 16:00; Stop 06/28/17 at 16:01; Status DC Bisacodyl (Dulcolax Tab) 5 mg PRN DAILY PRN PO CONSTIPATION Last administered on 06/29/17 09:43; Start 06/28/17 at 15:45 Artificial Tears (Artificial Tears) 1 drop HS OU Last administered on 06/29/17 20:38; Start 06/29/17 at 21:00 Potassium Chloride (Klor-Con) 40 meq 1X ONCE PO ; Start 06/29/17 at 11:15; Stop 06/29/17 at 11:16; Status UNV Potassium Chloride (KCl Oral Soln) 40 meq Q4H PO Last administered on 06/29/17 16:29; Start 06/29/17 at 11:30; Stop 06/29/17 at 15:31; Status DC Magnesium Sulfate/ Dextrose 50 ml @ 25 mls/hr 1X ONCE IV ; Start 06/29/17 at 11: 15; Stop 06/29/17 at 13:14; Status UNV Warfarin Sodium (Coumadin) 5 mg 1X WARF ONCE PO Last administered on 06/29/17 16:31; Start 06/29/17 at 16:00; Stop 06/29/17 at 16:01; Status DC Magnesium Hydroxide (Milk Of Magnesia) 2,400 mg PRN DAILY PRN PO CONSTIPATION Last administered on 06/30/17 08:19; Start 06/29/17 at 15:00 Potassium Chloride (Klor-Con) 20 meq DAILYWBKFT PO ; Start 07/01/17 at 08:00 Active Scripts Active Reported Methotrexate (Methotrexate Sodium) 2.5 Mg Tablet 7 Tab PO SATURDAY [hydroxyl-chloroquine] 200 Mg PO DAILY08 Calcium + Vitamin D Tablet (Calcium Carbonate/Vitamin D3) 1 Each Tablet 1 Each PO BID Furosemide 80 Mg Tablet 1 Tab PO BID Claritin (Loratadine) 10 Mg Tablet 1 Tab PO DAILY PRN Coumadin (Warfarin Sodium) 6 Mg Tablet 1.5 Tab PO FR,MO Coumadin (Warfarin Sodium) 6 Mg Tablet 6 Mg PO ,,,,DUNCAN Klor-Con M20 (Potassium Chloride) 20 Meq Tab.er.prt 40 Meq PO QID Acetaminophen 500 Mg Tablet 1 Tab PO PRN Q6HRS PRN Mucinex Dm Er 600-30 Mg Tablet (Guaifenesin/Dextromethorphan) 1 Each Tab.er.12h 1 Tab PO PRN Q12HRS Trazodone Hcl 50 Mg Tablet 25 Mg PO HS Propafenone Hcl 150 Mg Tablet 150 Mg PO BID Systane 0.3-0.4% Eye Drops (Propylene Glycol/Peg 400/Pf) 1 Each Droperette 1 Each OP DAILY Xanax (Alprazolam) 0.25 Mg Tablet 1 Tab PO PRN BID PRN Biotin 1 Mg Capsule 1,000 Mg PO BID [lutein] 1 Tab BID [Iron ] 1 Tab DAILY Aldactone (Spironolactone) 25 Mg Tablet 1 Tab PO BID Omeprazole 40 Mg Capsule.dr 40 Mg PO DAILY Tramadol Hcl 50 Mg Tablet 50 Mg PO PRN Q6HRS PRN Fish Oil 1,000 Mg Softgel (Ray[place]-3 Fatty Acids/Fish Oil) 1 Each Capsule 1 Each PO DAILY Allopurinol 100 Mg Tablet 100 Mg PO DAILY Paxil (Paroxetine Hcl) 40 Mg Tablet 20 Mg PO DAILY Levothyroxine Sodium 100 Mcg Tablet 100 Mcg PO DAILY Vitals/I & O Vital Sign - Last 24 Hours 06/29/17 06/29/17 06/29/17 06/29/17 15:00 17:30 19:15 19:18 Temp 97.7 98.3 97.7 98.3 Pulse 86 88 Resp 19 18 18 B/P (MAP) 95/54 (68) 99/62 (74) Pulse Ox 100 100 97 O2 Delivery Room Air Room Air Room Air Room Air 06/29/17 06/29/17 06/30/17 06/30/17 20:31 23:15 03:10 07:00 Temp 98.3 98.6 98.4 98.3 98.6 98.4 Pulse 88 81 79 80 Resp 16 18 18 B/P (MAP) 99/62 91/53 (66) 105/59 (74) 99/56 (70) Pulse Ox 97 96 100 O2 Delivery Room Air Room Air Room Air 06/30/17 06/30/17 06/30/17 06/30/17 07:42 08:19 08:20 09:21 Pulse 84 Resp 18 18 B/P (MAP) 123/66 Pulse Ox 96 96 O2 Delivery Room Air Room Air Room Air Intake and Output 06/29/17 06/29/17 06/30/17 15:00 23:00 07:00 Output Total 1 ml Balance -1 ml Nutrition Consultation Dietary Evaluation: Recommendations by RD: Dietary education by RD Comments: po intake improves with food preferences continue with food preferences/ pt calling dietary for foods she likes Expected Outcomes/Goals: to meet > 50% est nutr needs- met, goal ongoing Interpretation of weight loss: >5% in 1 month Malnutrition Findings: Body Fat Depletion (Non Severe: Mild Depletion Weight Status: Appropriate SWEETIE SALDAÑA MD Jun 30, 2017 11:25
[2017-06-30] MEDS: ACETAMINOPHEN 500 MG TABLET PO PRN (13:21)
[2017-06-30 15:00] VITALS: BP 104/60
--- NOTE | 2017-06-30 15:57 | PDOC ---
PROGRESS NOTES Subjective Subjective Pt feels better Central line DC'ed and pressure held No apparent bleeding Objective Objective Vital Signs Date Time Temp Pulse Resp B/P (MAP) Pulse Ox O2 Delivery O2 Flow Rate FiO2 06/30/17 15:00 98.7 92 18 104/60 (75) 98 Room Air 98.7 Intake and Output 06/30/17 07:00 Output Total 1 ml Balance -1 ml Output Urine Total 1 ml # Voids 9 Physical Exam Physical Exam No significant changes in cardiac exam Assessment Assessment Stable Agree with present plan Home Soon. Comment Review of Relevant I have reviewed the following items leila (where applicable) has been applied. Labs Laboratory Tests Test 06/29/17 06:30 06/30/17 05:45 Prothrombin Time 27.0 SEC (11.7-14.0) 27.9 SEC (11.7-14.0) Prothromb Time International Ratio 2.7 (0.8-1.1) 2.8 (0.8-1.1) Sodium Level 138 mmol/L (136-145) 137 mmol/L (136-145) Potassium Level 3.0 mmol/L (3.5-5.1) 4.1 mmol/L (3.5-5.1) Chloride Level 101 mmol/L (98-107) 102 mmol/L (98-107) Carbon Dioxide Level 30 mmol/L (21-32) 29 mmol/L (21-32) Anion Gap 7 (6-14) 6 (6-14) Blood Urea Nitrogen 39 mg/dL (7-20) 33 mg/dL (7-20) Creatinine 1.0 mg/dL (0.6-1.0) 1.0 mg/dL (0.6-1.0) Estimated GFR (Cockcroft-Gault) 53.9 53.9 Glucose Level 77 mg/dL (70-99) 90 mg/dL (70-99) Calcium Level 8.1 mg/dL (8.5-10.1) 8.0 mg/dL (8.5-10.1) Phosphorus Level 2.4 mg/dL (2.6-4.7) 2.2 mg/dL (2.6-4.7) Albumin 2.4 g/dL (3.4-5.0) 2.5 g/dL (3.4-5.0) White Blood Count 6.4 x10^3/uL (4.0-11.0) Red Blood Count 2.91 x10^6/uL (3.50-5.40) Hemoglobin 10.5 g/dL (12.0-15.5) Hematocrit 30.9 % (36.0-47.0) Mean Corpuscular Volume 106 fL (79-100) Mean Corpuscular Hemoglobin 36 pg (25-35) Mean Corpuscular Hemoglobin Concent 34 g/dL (31-37) Red Cell Distribution Width 15.9 % (11.5-14.5) Platelet Count 133 x10^3/uL (140-400) Neutrophils (%) (Auto) 79 % (31-73) Lymphocytes (%) (Auto) 16 % (24-48) Monocytes (%) (Auto) 5 % (0-9) Eosinophils (%) (Auto) 0 % (0-3) Basophils (%) (Auto) 1 % (0-3) Neutrophils # (Auto) 5.0 x10^3uL (1.8-7.7) Lymphocytes # (Auto) 1.0 x10^3/uL (1.0-4.8) Monocytes # (Auto) 0.3 x10^3/uL (0.0-1.1) Eosinophils # (Auto) 0.0 x10^3/uL (0.0-0.7) Basophils # (Auto) 0.0 x10^3/uL (0.0-0.2) BUN/Creatinine Ratio 33 (6-20) Magnesium Level 2.3 mg/dL (1.8-2.4) Total Bilirubin 0.2 mg/dL (0.2-1.0) Aspartate Amino Transf (AST/SGOT) 35 U/L (15-37) Alanine Aminotransferase (ALT/SGPT) 32 U/L (14-59) Alkaline Phosphatase 52 U/L (46-116) Total Protein 5.6 g/dL (6.4-8.2) Albumin/Globulin Ratio 0.8 (1.0-1.7) Laboratory Tests Test 06/30/17 05:45 White Blood Count 6.4 x10^3/uL (4.0-11.0) Red Blood Count 2.91 x10^6/uL (3.50-5.40) Hemoglobin 10.5 g/dL (12.0-15.5) Hematocrit 30.9 % (36.0-47.0) Mean Corpuscular Volume 106 fL (79-100) Mean Corpuscular Hemoglobin 36 pg (25-35) Mean Corpuscular Hemoglobin Concent 34 g/dL (31-37) Red Cell Distribution Width 15.9 % (11.5-14.5) Platelet Count 133 x10^3/uL (140-400) Neutrophils (%) (Auto) 79 % (31-73) Lymphocytes (%) (Auto) 16 % (24-48) Monocytes (%) (Auto) 5 % (0-9) Eosinophils (%) (Auto) 0 % (0-3) Basophils (%) (Auto) 1 % (0-3) Neutrophils # (Auto) 5.0 x10^3uL (1.8-7.7) Lymphocytes # (Auto) 1.0 x10^3/uL (1.0-4.8) Monocytes # (Auto) 0.3 x10^3/uL (0.0-1.1) Eosinophils # (Auto) 0.0 x10^3/uL (0.0-0.7) Basophils # (Auto) 0.0 x10^3/uL (0.0-0.2) Prothrombin Time 27.9 SEC (11.7-14.0) Prothromb Time International Ratio 2.8 (0.8-1.1) Sodium Level 137 mmol/L (136-145) Potassium Level 4.1 mmol/L (3.5-5.1) Chloride Level 102 mmol/L (98-107) Carbon Dioxide Level 29 mmol/L (21-32) Anion Gap 6 (6-14) Blood Urea Nitrogen 33 mg/dL (7-20) Creatinine 1.0 mg/dL (0.6-1.0) Estimated GFR (Cockcroft-Gault) 53.9 BUN/Creatinine Ratio 33 (6-20) Glucose Level 90 mg/dL (70-99) Calcium Level 8.0 mg/dL (8.5-10.1) Phosphorus Level 2.2 mg/dL (2.6-4.7) Magnesium Level 2.3 mg/dL (1.8-2.4) Total Bilirubin 0.2 mg/dL (0.2-1.0) Aspartate Amino Transf (AST/SGOT) 35 U/L (15-37) Alanine Aminotransferase (ALT/SGPT) 32 U/L (14-59) Alkaline Phosphatase 52 U/L (46-116) Total Protein 5.6 g/dL (6.4-8.2) Albumin 2.5 g/dL (3.4-5.0) Albumin/Globulin Ratio 0.8 (1.0-1.7) Medications Current Medications Acetaminophen (Tylenol) 500 mg PRN Q6HRS PRN PO MILD PAIN / TEMP Last administered on 06/30/17 13:21; Start 06/23/17 at 20:45 Allopurinol (Zyloprim) 100 mg DAILY PO Last administered on 06/30/17 08:20; Start 06/24/17 at 09:00 Alprazolam (Xanax) 0.25 mg PRN BID PRN PO ANXIETY / AGITATION Last administered on 06/30/17 09:34; Start 06/23/17 at 20:45 Furosemide (Lasix) 80 mg BID94 PO Last administered on 06/24/17 08:25; Start 06/24/17 at 09:00; Stop 06/24/17 at 11:09; Status DC Guaifenesin (MUCINEX ER with DM) 1 tab PRN Q12HRS PRN PO MUCOUS/CONGESTION; Start 06/23/17 at 20:45 Levothyroxine Sodium (Synthroid) 100 mcg DAILY07 PO ; Start 06/24/17 at 07:00; Stop 06/24/17 at 07:00; Status DC Potassium Chloride (Klor-Con) 40 meq QID PO ; Start 06/23/17 at 21:00; Stop at 22:13; Status DC Propafenone HCl (Rythmol) 150 mg BID PO Last administered on 06/30/17 08:20; Start 06/23/17 at 21:00 Spironolactone (Aldactone) 25 mg BID94 PO Last administered on 06/26/17 08:20; Start 06/24/17 at 09:00; Stop 06/26/17 at 12:34; Status DC Tramadol HCl (Ultram) 50 mg PRN Q6HRS PRN PO PAIN Last administered on 08:19; Start 06/23/17 at 20:45 Trazodone HCl (Desyrel) 25 mg HS PO Last administered on 06/29/17 20:29; Start 06/23/17 at 21:00 Warfarin Sodium (Coumadin) 9 mg DAILY16 PO ; Start 06/24/17 at 16:00; Stop 06/24 at 16:00; Status DC Non-Formulary Medication 1,000 mg BID PO ; Start 06/23/17 at 21:00; Stop at 21:00; Status DC Calcium/Vitamin D (Oscal D 500mg/ 200uts) 1 tab BIDAFTMEAL PO Last administered on 06/30/17 08:20; Start 06/24/17 at 09:00 Cetirizine HCl (ZyrTEC) 10 mg PRN DAILY PRN PO ALLERGIES Last administered on 20:38; Start 06/24/17 at 09:00 Fish Oil (Fish Oil) 1,000 mg DAILY PO Last administered on 06/30/17 08:20; Start 06/24/17 at 09:00 Pantoprazole Sodium (Protonix) 40 mg DAILYAC PO Last administered on 06/30/17 08:20; Start 06/24/17 at 07:30 Paroxetine HCl (Paxil) 20 mg DAILY PO Last administered on 06/30/17 08:21; Start 06/24/17 at 09:00 Artificial Tears (Artificial Tears) 1 drop DAILY OU Last administered on 08:24; Start 06/24/17 at 09:00; Stop 06/29/17 at 10:24; Status DC Hydroxychloroquine Sulfate (Plaquenil) 200 mg DAILY08 PO Last administered on 08:20; Start 06/24/17 at 09:00 Ferrous Sulfate (Feosol) 325 mg DAILYWBKFT PO Last administered on 06/30/17 08: 20; Start 06/24/17 at 08:00 Multivitamins/ Minerals (I-Cristiano) 1 tab BID PO Last administered on 06/30/17 08: 20; Start 06/24/17 at 09:00 Methotrexate (Rheumatrex) 17.5 mg We@0900 PO Last administered on 06/26/17 08: 38; Start 06/26/17 at 09:00 Warfarin Sodium (Coumadin Per Pharmacy) 1 each PRN DAILY PRN MC SEE COMMENTS Last administered on 06/30/17 13:12; Start 06/23/17 at 21:00 Calcium Gluconate (Calcium Gluconate) 1,000 mg 1X ONCE IVP Last administered on 06/23/17 21:42; Start 06/23/17 at 21:30; Stop 06/23/17 at 21:31; Status DC Dextrose (Dextrose 50%-Water Syringe) 25 gm 1X ONCE IV Last administered on 22:00; Start 06/23/17 at 21:30; Stop 06/23/17 at 21:31; Status DC Insulin Human Regular (NovoLIN R VIAL) 10 unit 1X ONCE IV Last administered on 06/23/17 21:58; Start 06/23/17 at 21:30; Stop 06/23/17 at 21:31; Status DC Sodium Bicarbonate 50 meq 1X ONCE IV Last administered on 06/23/17 21:49; Start 06/23/17 at 21:45; Stop 06/23/17 at 21:46; Status DC Sodium Bicarbonate 150 meq/Dextrose 1,150 ml @ 100 mls/hr [id number] IV Last administered on 06/23/17 22:39; Start 06/23/17 at 22:30; Stop 06/24/17 at 11:09 ; Status DC Sodium Polystyrene Sulfonate (Kayexalate) 30 gm 1X ONCE PO Last administered on 06/23/17 22:37; Start 06/23/17 at 22:30; Stop 06/23/17 at 22:31; Status DC Sodium Polystyrene Sulfonate (Kayexalate) 15 gm 1X PRN PRN PO K+ >6 4 HOURS AFTER INITIAL DOSE; Start 06/23/17 at 22:45; Stop 06/25/17 at 08:47; Status DC Fentanyl Citrate (Fentanyl 2ml Vial) 50 mcg PRN Q2HR PRN IV PAIN; Start at 23:30; Stop 06/24/17 at 23:29; Status DC Acetaminophen (Tylenol) 650 mg PRN Q4HRS PRN PO FEVER Last administered on 06/24 20:27; Start 06/23/17 at 23:30; Stop 06/24/17 at 23:29; Status DC Levothyroxine Sodium (Synthroid) 100 mcg DAILY08 PO Last administered on 08:19; Start 06/24/17 at 08:00 Phytonadione (Mephyton) 2.5 mg 1X ONCE PO Last administered on 06/24/17 06:06 ; Start 06/24/17 at 06:00; Stop 06/24/17 at 06:01; Status DC Potassium Chloride (Klor-Con) 40 meq 1X ONCE PO Last administered on 06:06; Start 06/24/17 at 06:00; Stop 06/24/17 at 06:01; Status DC Potassium Chloride (Klor-Con) 40 meq 1X ONCE PO Last administered on 09:43; Start 06/24/17 at 09:45; Stop 06/24/17 at 09:46; Status DC Potassium Chloride (Klor-Con) 40 meq 1X ONCE PO Last administered on 15:31; Start 06/24/17 at 14:00; Stop 06/24/17 at 14:01; Status DC Warfarin Sodium (Coumadin - No Dose Today) 1 each 1X WARF ONCE MC Last administered on 06/24/17 10:19; Start 06/24/17 at 16:00; Stop 06/24/17 at 16:01 ; Status DC Magnesium Sulfate/ Dextrose 50 ml @ 25 mls/hr PRN DAILY PRN IV for Mag < 1.7 on am labs; Start 06/24/17 at 11:00 Potassium Chloride 40 meq/ Sodium Chloride 1,020 ml @ 75 mls/hr [id number] IV Last administered on 06/25/17 03:22; Start 06/24/17 at 12:00; Stop 06/25/17 at 08 :47; Status DC Potassium Chloride 50 ml @ 25 mls/hr Q2HR IV Last administered on 06/25/17 03: 21; Start 06/24/17 at 20:00; Stop 06/25/17 at 07:59; Status DC Enoxaparin Sodium (Lovenox Per Pharmacy Prophylaxis Dosing) 1 each PRN DAILY PRN MC SEE COMMENTS; Start 06/25/17 at 09:00; Stop 06/30/17 at 07:30; Status DC Enoxaparin Sodium (Lovenox 30mg Syringe) 30 mg Q24H SQ Last administered on 06/29 09:43; Start 06/25/17 at 09:00; Stop 06/30/17 at 07:30; Status DC Warfarin Sodium (Coumadin) 6 mg 1X WARF ONCE PO Last administered on 06/25/17 17:08; Start 06/25/17 at 16:00; Stop 06/25/17 at 16:01; Status DC Potassium Chloride (Klor-Con) 20 meq 1X ONCE PO Last administered on 06/25/17 21:07; Start 06/25/17 at 20:00; Stop 06/25/17 at 20:01; Status DC Potassium Chloride 100 ml @ 100 mls/hr Q1H IV Last administered on 06/26/17 09 :39; Start 06/26/17 at 05:30; Stop 06/26/17 at 09:29; Status DC Potassium Chloride (Klor-Con) 40 meq 1X ONCE PO Last administered on 06/26/17 09:40; Start 06/26/17 at 09:30; Stop 06/26/17 at 09:33; Status DC Potassium Chloride (Klor-Con) 40 meq 1X ONCE PO Last administered on 06/26/17 11:30; Start 06/26/17 at 11:30; Stop 06/26/17 at 11:31; Status DC Warfarin Sodium (Coumadin) 8 mg 1X WARF ONCE PO Last administered on 06/26/17 17:16; Start 06/26/17 at 16:00; Stop 06/26/17 at 16:01; Status DC Potassium Chloride (Klor-Con) 40 meq TIDWMEALS PO Last administered on 16:54; Start 06/27/17 at 08:00; Stop 06/27/17 at 18:00; Status DC Warfarin Sodium (Coumadin) 9 mg 1X WARF ONCE PO Last administered on 06/27/17 16:53; Start 06/27/17 at 16:00; Stop 06/27/17 at 16:01; Status DC Warfarin Sodium (Coumadin) 6 mg 1X WARF ONCE PO Last administered on 06/28/17 15:57; Start 06/28/17 at 16:00; Stop 06/28/17 at 16:01; Status DC Bisacodyl (Dulcolax Tab) 5 mg PRN DAILY PRN PO CONSTIPATION Last administered on 06/29/17 09:43; Start 06/28/17 at 15:45 Artificial Tears (Artificial Tears) 1 drop HS OU Last administered on 06/29/17 20:38; Start 06/29/17 at 21:00 Potassium Chloride (Klor-Con) 40 meq 1X ONCE PO ; Start 06/29/17 at 11:15; Stop 06/29/17 at 11:16; Status UNV Potassium Chloride (KCl Oral Soln) 40 meq Q4H PO Last administered on 06/29/17 16:29; Start 06/29/17 at 11:30; Stop 06/29/17 at 15:31; Status DC Magnesium Sulfate/ Dextrose 50 ml @ 25 mls/hr 1X ONCE IV ; Start 06/29/17 at 11: 15; Stop 06/29/17 at 13:14; Status UNV Warfarin Sodium (Coumadin) 5 mg 1X WARF ONCE PO Last administered on 06/29/17 16:31; Start 06/29/17 at 16:00; Stop 06/29/17 at 16:01; Status DC Magnesium Hydroxide (Milk Of Magnesia) 2,400 mg PRN DAILY PRN PO CONSTIPATION Last administered on 06/30/17 08:19; Start 06/29/17 at 15:00 Potassium Chloride (Klor-Con) 20 meq DAILYWBKFT PO ; Start 07/01/17 at 08:00 Warfarin Sodium (Coumadin) 6 mg 1X WARF ONCE PO ; Start 06/30/17 at 16:00; Stop 06/30/17 at 16:01 Active Scripts Active Reported Methotrexate (Methotrexate Sodium) 2.5 Mg Tablet 7 Tab PO SATURDAY [hydroxyl-chloroquine] 200 Mg PO DAILY08 Calcium + Vitamin D Tablet (Calcium Carbonate/Vitamin D3) 1 Each Tablet 1 Each PO BID Furosemide 80 Mg Tablet 1 Tab PO BID Claritin (Loratadine) 10 Mg Tablet 1 Tab PO DAILY PRN Coumadin (Warfarin Sodium) 6 Mg Tablet 1.5 Tab PO ,MO Coumadin (Warfarin Sodium) 6 Mg Tablet 6 Mg PO ,,,SA,DUNCAN Klor-Con M20 (Potassium Chloride) 20 Meq Tab.er.prt 40 Meq PO QID Acetaminophen 500 Mg Tablet 1 Tab PO PRN Q6HRS PRN Mucinex Dm Er 600-30 Mg Tablet (Guaifenesin/Dextromethorphan) 1 Each Tab.er.12h 1 Tab PO PRN Q12HRS Trazodone Hcl 50 Mg Tablet 25 Mg PO HS Propafenone Hcl 150 Mg Tablet 150 Mg PO BID Systane 0.3-0.4% Eye Drops (Propylene Glycol/Peg 400/Pf) 1 Each Droperette 1 Each OP DAILY Xanax (Alprazolam) 0.25 Mg Tablet 1 Tab PO PRN BID PRN Biotin 1 Mg Capsule 1,000 Mg PO BID [lutein] 1 Tab BID [Iron ] 1 Tab DAILY Aldactone (Spironolactone) 25 Mg Tablet 1 Tab PO BID Omeprazole 40 Mg Capsule.dr 40 Mg PO DAILY Tramadol Hcl 50 Mg Tablet 50 Mg PO PRN Q6HRS PRN Fish Oil 1,000 Mg Softgel ([place]-3 Fatty Acids/Fish Oil) 1 Each Capsule 1 Each PO DAILY Allopurinol 100 Mg Tablet 100 Mg PO DAILY Paxil (Paroxetine Hcl) 40 Mg Tablet 20 Mg PO DAILY Levothyroxine Sodium 100 Mcg Tablet 100 Mcg PO DAILY Vitals/I & O Vital Sign - Last 24 Hours 06/29/17 06/29/17 06/29/17 06/29/17 17:30 19:15 19:18 20:31 Temp 98.3 98.3 Pulse 88 88 Resp 18 18 B/P (MAP) 99/62 (74) 99/62 Pulse Ox 100 97 O2 Delivery Room Air Room Air Room Air 06/29/17 06/30/17 06/30/17 06/30/17 23:15 03:10 07:00 07:42 Temp 98.3 98.6 98.4 98.3 98.6 98.4 Pulse 81 79 80 Resp 16 18 18 B/P (MAP) 91/53 (66) 105/59 (74) 99/56 (70) Pulse Ox 97 96 100 O2 Delivery Room Air Room Air Room Air Room Air 06/30/17 06/30/17 06/30/17 06/30/17 08:19 08:20 09:21 11:00 Temp 98.2 98.2 Pulse 84 83 Resp 18 18 18 B/P (MAP) 123/66 99/63 (75) Pulse Ox 96 96 100 O2 Delivery Room Air Room Air Room Air 06/30/17 15:00 Temp 98.7 98.7 Pulse 92 Resp 18 B/P (MAP) 104/60 (75) Pulse Ox 98 O2 Delivery Room Air Intake and Output 06/29/17 06/29/17 06/30/17 15:00 23:00 07:00 Output Total 1 ml Balance -1 ml Nutrition Consultation Dietary Evaluation: Recommendations by RD: Dietary education by RD Comments: po intake improves with food preferences continue with food preferences/ pt calling dietary for foods she likes Expected Outcomes/Goals: to meet > 50% est nutr needs- met, goal ongoing Interpretation of weight loss: >5% in 1 month Malnutrition Findings: Body Fat Depletion (Non Severe: Mild Depletion Weight Status: Appropriate CJ DIAL MD Jun 30, 2017 15:57
[2017-06-30] MEDS ORDERED: WARFARIN 6 MG TABLET. PO ONE (16:00)
[2017-06-30 19:10] VITALS: BP 111/80
[2017-06-30] MEDS: POLYVINYL ALCOHOL 1.4% OPHTH SOLUTION 15ML BOTTLE. OU SCH (21:32)
[2017-06-30] MEDS: traZODone 50 MG TABLET. PO SCH (21:32)
[2017-06-30 23:10] VITALS: BP 103/64
[2017-07-01 03:10] VITALS: BP 118/60
[2017-07-01] MEDS: ACETAMINOPHEN 500 MG TABLET PO PRN (04:03)
[2017-07-01 04:58] LABS: ALBUMIN 2.6 g/dL (3.4-5.0); CALCIUM 8.4 mg/dL (8.5-10.1); GFR 53.9; PHOSPHORUS 2.1 mg/dL (2.6-4.7); POTASSIUM 3.9 mmol/L (3.5-5.1)
[2017-07-01 07:00] VITALS: BP 121/68
[2017-07-01] MEDS: ALPRAZolam 0.25 MG TABLET PO PRN (07:55)
[2017-07-01] MEDS: FERROUS SULFATE 325 MG TABLET. PO SCH (07:55)
[2017-07-01] MEDS: HYDROXYCHLOROQUINE 200 MG TABLET PO SCH (07:55)
[2017-07-01] MEDS: OMEGA-3 FATTY ACIDS/FISH OIL 1,000 MG CAPSULE. PO SCH (07:55)
[2017-07-01] MEDS: MULTIVITAMIN I-VITE TABLET. PO SCH (07:55)
[2017-07-01] MEDS: ALLOPURINOL 100 MG TABLET. PO SCH (07:55)
[2017-07-01] MEDS: LEVOTHYROXINE 100 MCG TABLET PO SCH (07:56)
[2017-07-01] MEDS: PROPAFENONE 150 MG TABLET. PO SCH (07:56)
[2017-07-01] MEDS: PARoxetine 20 MG TABLET PO SCH (07:56)
[2017-07-01] MEDS: PANTOPRAZOLE 40 MG TABLET.DR. PO SCH (07:56)
[2017-07-01] MEDS: CALCIUM CARB/VIT D3 500/200 TABLET. PO SCH (07:56)
[2017-07-01] MEDS ORDERED: POTASSIUM CHLORIDE 20 MEQ TABLET.ER. PO SCH (08:00)
--- NOTE | 2017-07-01 09:13 | PDOC ---
PROGRESS NOTES Subjective Subjective Pt feels well this morning. No further complaints at this time. Objective Objective Gen: Pt sitting in bed comfortably watching tv. Pt is pleasant and conversational. HEENT: atraumatic Neck: supple; no JVD Card: RRR; no new heart sounds Resp: CTAB; no rhonchi/rales/wheezes bilaterally Neuro: Pt is alert and aware; oriented to person, place and time. Vital Signs Date Time Temp Pulse Resp B/P (MAP) Pulse Ox O2 Delivery O2 Flow Rate FiO2 07/01/17 07:56 89 128/68 07/01/17 07:00 97.7 18 99 97.7 07/01/17 03:10 Room Air Intake and Output 07/01/17 07:00 Intake Total 440 ml Balance 440 ml Intake Oral 440 ml # Voids 4 Assessment Assessment Problems Medical Problems: (1) Hyperkalemia Status: Acute (2) Renal failure Status: Acute Pt is stable. Ready to go home. Comment Review of Relevant I have reviewed the following items leila (where applicable) has been applied. Labs Laboratory Tests Test 06/30/17 05:45 07/01/17 04:00 White Blood Count 6.4 x10^3/uL (4.0-11.0) Red Blood Count 2.91 x10^6/uL (3.50-5.40) Hemoglobin 10.5 g/dL (12.0-15.5) Hematocrit 30.9 % (36.0-47.0) Mean Corpuscular Volume 106 fL (79-100) Mean Corpuscular Hemoglobin 36 pg (25-35) Mean Corpuscular Hemoglobin Concent 34 g/dL (31-37) Red Cell Distribution Width 15.9 % (11.5-14.5) Platelet Count 133 x10^3/uL (140-400) Neutrophils (%) (Auto) 79 % (31-73) Lymphocytes (%) (Auto) 16 % (24-48) Monocytes (%) (Auto) 5 % (0-9) Eosinophils (%) (Auto) 0 % (0-3) Basophils (%) (Auto) 1 % (0-3) Neutrophils # (Auto) 5.0 x10^3uL (1.8-7.7) Lymphocytes # (Auto) 1.0 x10^3/uL (1.0-4.8) Monocytes # (Auto) 0.3 x10^3/uL (0.0-1.1) Eosinophils # (Auto) 0.0 x10^3/uL (0.0-0.7) Basophils # (Auto) 0.0 x10^3/uL (0.0-0.2) Prothrombin Time 27.9 SEC (11.7-14.0) Prothromb Time International Ratio 2.8 (0.8-1.1) Sodium Level 137 mmol/L (136-145) 135 mmol/L (136-145) Potassium Level 4.1 mmol/L (3.5-5.1) 3.9 mmol/L (3.5-5.1) Chloride Level 102 mmol/L (98-107) 101 mmol/L (98-107) Carbon Dioxide Level 29 mmol/L (21-32) 27 mmol/L (21-32) Anion Gap 6 (6-14) 7 (6-14) Blood Urea Nitrogen 33 mg/dL (7-20) 26 mg/dL (7-20) Creatinine 1.0 mg/dL (0.6-1.0) 1.0 mg/dL (0.6-1.0) Estimated GFR (Cockcroft-Gault) 53.9 53.9 BUN/Creatinine Ratio 33 (6-20) Glucose Level 90 mg/dL (70-99) 85 mg/dL (70-99) Calcium Level 8.0 mg/dL (8.5-10.1) 8.4 mg/dL (8.5-10.1) Phosphorus Level 2.2 mg/dL (2.6-4.7) 2.1 mg/dL (2.6-4.7) Magnesium Level 2.3 mg/dL (1.8-2.4) Total Bilirubin 0.2 mg/dL (0.2-1.0) Aspartate Amino Transf (AST/SGOT) 35 U/L (15-37) Alanine Aminotransferase (ALT/SGPT) 32 U/L (14-59) Alkaline Phosphatase 52 U/L (46-116) Total Protein 5.6 g/dL (6.4-8.2) Albumin 2.5 g/dL (3.4-5.0) 2.6 g/dL (3.4-5.0) Albumin/Globulin Ratio 0.8 (1.0-1.7) Laboratory Tests Test 07/01/17 04:00 Sodium Level 135 mmol/L (136-145) Potassium Level 3.9 mmol/L (3.5-5.1) Chloride Level 101 mmol/L (98-107) Carbon Dioxide Level 27 mmol/L (21-32) Anion Gap 7 (6-14) Blood Urea Nitrogen 26 mg/dL (7-20) Creatinine 1.0 mg/dL (0.6-1.0) Estimated GFR (Cockcroft-Gault) 53.9 Glucose Level 85 mg/dL (70-99) Calcium Level 8.4 mg/dL (8.5-10.1) Phosphorus Level 2.1 mg/dL (2.6-4.7) Albumin 2.6 g/dL (3.4-5.0) Medications Current Medications Acetaminophen (Tylenol) 500 mg PRN Q6HRS PRN PO MILD PAIN / TEMP Last administered on 07/01/17 04:03; Start 06/23/17 at 20:45 Allopurinol (Zyloprim) 100 mg DAILY PO Last administered on 07/01/17 07:55; Start 06/24/17 at 09:00 Alprazolam (Xanax) 0.25 mg PRN BID PRN PO ANXIETY / AGITATION Last administered on 07/01/17 07:55; Start 06/23/17 at 20:45 Furosemide (Lasix) 80 mg BID94 PO Last administered on 06/24/17 08:25; Start 06/24/17 at 09:00; Stop 06/24/17 at 11:09; Status DC Guaifenesin (MUCINEX ER with DM) 1 tab PRN Q12HRS PRN PO MUCOUS/CONGESTION; Start 06/23/17 at 20:45 Levothyroxine Sodium (Synthroid) 100 mcg DAILY07 PO ; Start 06/24/17 at 07:00; Stop 06/24/17 at 07:00; Status DC Potassium Chloride (Klor-Con) 40 meq QID PO ; Start 06/23/17 at 21:00; Stop at 22:13; Status DC Propafenone HCl (Rythmol) 150 mg BID PO Last administered on 07/01/17 07:56; Start 06/23/17 at 21:00 Spironolactone (Aldactone) 25 mg BID94 PO Last administered on 06/26/17 08:20; Start 06/24/17 at 09:00; Stop 06/26/17 at 12:34; Status DC Tramadol HCl (Ultram) 50 mg PRN Q6HRS PRN PO PAIN Last administered on 21:32; Start 06/23/17 at 20:45 Trazodone HCl (Desyrel) 25 mg HS PO Last administered on 06/30/17 21:32; Start 06/23/17 at 21:00 Warfarin Sodium (Coumadin) 9 mg DAILY16 PO ; Start 06/24/17 at 16:00; Stop 06/24 at 16:00; Status DC Non-Formulary Medication 1,000 mg BID PO ; Start 06/23/17 at 21:00; Stop at 21:00; Status DC Calcium/Vitamin D (Oscal D 500mg/ 200uts) 1 tab BIDAFTMEAL PO Last administered on 07/01/17 07:56; Start 06/24/17 at 09:00 Cetirizine HCl (ZyrTEC) 10 mg PRN DAILY PRN PO ALLERGIES Last administered on 20:38; Start 06/24/17 at 09:00 Fish Oil (Fish Oil) 1,000 mg DAILY PO Last administered on 07/01/17 07:55; Start 06/24/17 at 09:00 Pantoprazole Sodium (Protonix) 40 mg DAILYAC PO Last administered on 07/01/17 07:56; Start 06/24/17 at 07:30 Paroxetine HCl (Paxil) 20 mg DAILY PO Last administered on 07/01/17 07:56; Start 06/24/17 at 09:00 Artificial Tears (Artificial Tears) 1 drop DAILY OU Last administered on 08:24; Start 06/24/17 at 09:00; Stop 06/29/17 at 10:24; Status DC Hydroxychloroquine Sulfate (Plaquenil) 200 mg DAILY08 PO Last administered on 07:55; Start 06/24/17 at 09:00 Ferrous Sulfate (Feosol) 325 mg DAILYWBKFT PO Last administered on 07/01/17 07: 55; Start 06/24/17 at 08:00 Multivitamins/ Minerals (I-Cristiano) 1 tab BID PO Last administered on 07/01/17 07: 55; Start 06/24/17 at 09:00 Methotrexate (Rheumatrex) 17.5 mg We@0900 PO Last administered on 06/26/17 08: 38; Start 06/26/17 at 09:00 Warfarin Sodium (Coumadin Per Pharmacy) 1 each PRN DAILY PRN MC SEE COMMENTS Last administered on 06/30/17 13:12; Start 06/23/17 at 21:00 Calcium Gluconate (Calcium Gluconate) 1,000 mg 1X ONCE IVP Last administered on 06/23/17 21:42; Start 06/23/17 at 21:30; Stop 06/23/17 at 21:31; Status DC Dextrose (Dextrose 50%-Water Syringe) 25 gm 1X ONCE IV Last administered on 22:00; Start 06/23/17 at 21:30; Stop 06/23/17 at 21:31; Status DC Insulin Human Regular (NovoLIN R VIAL) 10 unit 1X ONCE IV Last administered on 06/23/17 21:58; Start 06/23/17 at 21:30; Stop 06/23/17 at 21:31; Status DC Sodium Bicarbonate 50 meq 1X ONCE IV Last administered on 06/23/17 21:49; Start 06/23/17 at 21:45; Stop 06/23/17 at 21:46; Status DC Sodium Bicarbonate 150 meq/Dextrose 1,150 ml @ 100 mls/hr [id number] IV Last administered on 06/23/17 22:39; Start 06/23/17 at 22:30; Stop 06/24/17 at 11:09 ; Status DC Sodium Polystyrene Sulfonate (Kayexalate) 30 gm 1X ONCE PO Last administered on 06/23/17 22:37; Start 06/23/17 at 22:30; Stop 06/23/17 at 22:31; Status DC Sodium Polystyrene Sulfonate (Kayexalate) 15 gm 1X PRN PRN PO K+ >6 4 HOURS AFTER INITIAL DOSE; Start 06/23/17 at 22:45; Stop 06/25/17 at 08:47; Status DC Fentanyl Citrate (Fentanyl 2ml Vial) 50 mcg PRN Q2HR PRN IV PAIN; Start at 23:30; Stop 06/24/17 at 23:29; Status DC Acetaminophen (Tylenol) 650 mg PRN Q4HRS PRN PO FEVER Last administered on 06/24 20:27; Start 06/23/17 at 23:30; Stop 06/24/17 at 23:29; Status DC Levothyroxine Sodium (Synthroid) 100 mcg DAILY08 PO Last administered on 07:56; Start 06/24/17 at 08:00 Phytonadione (Mephyton) 2.5 mg 1X ONCE PO Last administered on 06/24/17 06:06 ; Start 06/24/17 at 06:00; Stop 06/24/17 at 06:01; Status DC Potassium Chloride (Klor-Con) 40 meq 1X ONCE PO Last administered on 06:06; Start 06/24/17 at 06:00; Stop 06/24/17 at 06:01; Status DC Potassium Chloride (Klor-Con) 40 meq 1X ONCE PO Last administered on 09:43; Start 06/24/17 at 09:45; Stop 06/24/17 at 09:46; Status DC Potassium Chloride (Klor-Con) 40 meq 1X ONCE PO Last administered on 15:31; Start 06/24/17 at 14:00; Stop 06/24/17 at 14:01; Status DC Warfarin Sodium (Coumadin - No Dose Today) 1 each 1X WARF ONCE MC Last administered on 06/24/17 10:19; Start 06/24/17 at 16:00; Stop 06/24/17 at 16:01 ; Status DC Magnesium Sulfate/ Dextrose 50 ml @ 25 mls/hr PRN DAILY PRN IV for Mag < 1.7 on am labs; Start 06/24/17 at 11:00 Potassium Chloride 40 meq/ Sodium Chloride 1,020 ml @ 75 mls/hr [id number] IV Last administered on 06/25/17 03:22; Start 06/24/17 at 12:00; Stop 06/25/17 at 08 :47; Status DC Potassium Chloride 50 ml @ 25 mls/hr Q2HR IV Last administered on 06/25/17 03: 21; Start 06/24/17 at 20:00; Stop 06/25/17 at 07:59; Status DC Enoxaparin Sodium (Lovenox Per Pharmacy Prophylaxis Dosing) 1 each PRN DAILY PRN MC SEE COMMENTS; Start 06/25/17 at 09:00; Stop 06/30/17 at 07:30; Status DC Enoxaparin Sodium (Lovenox 30mg Syringe) 30 mg Q24H SQ Last administered on 06/29 09:43; Start 06/25/17 at 09:00; Stop 06/30/17 at 07:30; Status DC Warfarin Sodium (Coumadin) 6 mg 1X WARF ONCE PO Last administered on 06/25/17 17:08; Start 06/25/17 at 16:00; Stop 06/25/17 at 16:01; Status DC Potassium Chloride (Klor-Con) 20 meq 1X ONCE PO Last administered on 06/25/17 21:07; Start 06/25/17 at 20:00; Stop 06/25/17 at 20:01; Status DC Potassium Chloride 100 ml @ 100 mls/hr Q1H IV Last administered on 06/26/17 09 :39; Start 06/26/17 at 05:30; Stop 06/26/17 at 09:29; Status DC Potassium Chloride (Klor-Con) 40 meq 1X ONCE PO Last administered on 06/26/17 09:40; Start 06/26/17 at 09:30; Stop 06/26/17 at 09:33; Status DC Potassium Chloride (Klor-Con) 40 meq 1X ONCE PO Last administered on 06/26/17 11:30; Start 06/26/17 at 11:30; Stop 06/26/17 at 11:31; Status DC Warfarin Sodium (Coumadin) 8 mg 1X WARF ONCE PO Last administered on 06/26/17 17:16; Start 06/26/17 at 16:00; Stop 06/26/17 at 16:01; Status DC Potassium Chloride (Klor-Con) 40 meq TIDWMEALS PO Last administered on 16:54; Start 06/27/17 at 08:00; Stop 06/27/17 at 18:00; Status DC Warfarin Sodium (Coumadin) 9 mg 1X WARF ONCE PO Last administered on 06/27/17 16:53; Start 06/27/17 at 16:00; Stop 06/27/17 at 16:01; Status DC Warfarin Sodium (Coumadin) 6 mg 1X WARF ONCE PO Last administered on 06/28/17 15:57; Start 06/28/17 at 16:00; Stop 06/28/17 at 16:01; Status DC Bisacodyl (Dulcolax Tab) 5 mg PRN DAILY PRN PO CONSTIPATION Last administered on 06/29/17 09:43; Start 06/28/17 at 15:45 Artificial Tears (Artificial Tears) 1 drop HS OU Last administered on 06/30/17 21:32; Start 06/29/17 at 21:00 Potassium Chloride (Klor-Con) 40 meq 1X ONCE PO ; Start 06/29/17 at 11:15; Stop 06/29/17 at 11:16; Status UNV Potassium Chloride (KCl Oral Soln) 40 meq Q4H PO Last administered on 06/29/17 16:29; Start 06/29/17 at 11:30; Stop 06/29/17 at 15:31; Status DC Magnesium Sulfate/ Dextrose 50 ml @ 25 mls/hr 1X ONCE IV ; Start 06/29/17 at 11: 15; Stop 06/29/17 at 13:14; Status UNV Warfarin Sodium (Coumadin) 5 mg 1X WARF ONCE PO Last administered on 06/29/17 16:31; Start 06/29/17 at 16:00; Stop 06/29/17 at 16:01; Status DC Magnesium Hydroxide (Milk Of Magnesia) 2,400 mg PRN DAILY PRN PO CONSTIPATION Last administered on 06/30/17 08:19; Start 06/29/17 at 15:00 Potassium Chloride (Klor-Con) 20 meq DAILYWBKFT PO Last administered on 07:55; Start 07/01/17 at 08:00 Warfarin Sodium (Coumadin) 6 mg 1X WARF ONCE PO Last administered on 06/30/17 16:02; Start 06/30/17 at 16:00; Stop 06/30/17 at 16:01; Status DC Active Scripts Active Reported Methotrexate (Methotrexate Sodium) 2.5 Mg Tablet 7 Tab PO SATURDAY [hydroxyl-chloroquine] 200 Mg PO DAILY08 Calcium + Vitamin D Tablet (Calcium Carbonate/Vitamin D3) 1 Each Tablet 1 Each PO BID Furosemide 80 Mg Tablet 1 Tab PO BID Claritin (Loratadine) 10 Mg Tablet 1 Tab PO DAILY PRN Coumadin (Warfarin Sodium) 6 Mg Tablet 1.5 Tab PO FR,MO Coumadin (Warfarin Sodium) 6 Mg Tablet 6 Mg PO ,,,SA,DUNCAN Klor-Con M20 (Potassium Chloride) 20 Meq Tab.er.prt 40 Meq PO QID Acetaminophen 500 Mg Tablet 1 Tab PO PRN Q6HRS PRN Mucinex Dm Er 600-30 Mg Tablet (Guaifenesin/Dextromethorphan) 1 Each Tab.er.12h 1 Tab PO PRN Q12HRS Trazodone Hcl 50 Mg Tablet 25 Mg PO HS Propafenone Hcl 150 Mg Tablet 150 Mg PO BID Systane 0.3-0.4% Eye Drops (Propylene Glycol/Peg 400/Pf) 1 Each Droperette 1 Each OP DAILY Xanax (Alprazolam) 0.25 Mg Tablet 1 Tab PO PRN BID PRN Biotin 1 Mg Capsule 1,000 Mg PO BID [lutein] 1 Tab BID [Iron ] 1 Tab DAILY Aldactone (Spironolactone) 25 Mg Tablet 1 Tab PO BID Omeprazole 40 Mg Capsule.dr 40 Mg PO DAILY Tramadol Hcl 50 Mg Tablet 50 Mg PO PRN Q6HRS PRN Fish Oil 1,000 Mg Softgel ([place]-3 Fatty Acids/Fish Oil) 1 Each Capsule 1 Each PO DAILY Allopurinol 100 Mg Tablet 100 Mg PO DAILY Paxil (Paroxetine Hcl) 40 Mg Tablet 20 Mg PO DAILY Levothyroxine Sodium 100 Mcg Tablet 100 Mcg PO DAILY Vitals/I & O Vital Sign - Last 24 Hours 06/30/17 06/30/17 06/30/17 06/30/17 11:00 15:00 16:03 17:03 Temp 98.2 98.7 98.2 98.7 Pulse 83 92 Resp 18 18 18 18 B/P (MAP) 99/63 (75) 104/60 (75) Pulse Ox 100 98 98 98 O2 Delivery Room Air Room Air Room Air 06/30/17 06/30/17 06/30/17 06/30/17 19:10 20:20 21:33 22:35 Temp 98.5 98.5 Pulse 95 111 Resp 18 B/P (MAP) 111/80 (90) 80/95 Pulse Ox 98 O2 Delivery Room Air Room Air Room Air 06/30/17 07/01/17 07/01/17 07/01/17 23:10 03:10 07:00 07:56 Temp 98.5 98.2 97.7 98.5 98.2 97.7 Pulse 87 89 92 89 Resp 17 18 18 B/P (MAP) 103/64 (77) 118/60 (79) 121/68 (85) 128/68 Pulse Ox 100 98 99 O2 Delivery Room Air Room Air Intake and Output 06/30/17 06/30/17 07/01/17 15:00 23:00 07:00 Intake Total 240 ml 200 ml Balance 240 ml 200 ml Nutrition Consultation Dietary Evaluation: Recommendations by RD: Dietary education by RD Comments: po intake improves with food preferences continue with food preferences/ pt calling dietary for foods she likes Expected Outcomes/Goals: to meet > 50% est nutr needs- met, goal ongoing Interpretation of weight loss: >5% in 1 month Malnutrition Findings: Body Fat Depletion (Non Severe: Mild Depletion Weight Status: Appropriate CJ DIAL MD Jul 01, 2017 09:13
--- NOTE | 2017-07-01 09:46 | PDOC ---
PROGRESS NOTES Assessment Problems Medical Problems: (1) Hyperkalemia Status: Acute (2) Renal failure Status: Acute Essential tremors Left acoustic neuroma. Plan No additional neurologic treatment now Discussed with patient. When I saw her 2 months ago I told her to avoid caffeine , which she is trying, but as I walk in the room she is drinking a cup of coffee. Follow-up with me in 6 weeks. Subjective Still has the tremor. I do not see any. Objective Vital Signs Date Time Temp Pulse Resp B/P (MAP) Pulse Ox O2 Delivery O2 Flow Rate FiO2 07/01/17 07:56 89 128/68 07/01/17 07:00 97.7 18 99 97.7 07/01/17 03:10 Room Air Intake and Output 07/01/17 07:00 Intake Total 440 ml Balance 440 ml Intake Oral 440 ml # Voids 4 PHYSICAL EXAM Alert. Oriented to time, place and person. PERRL. EOMI. CN: no focal findings. Muscle tone: normal. Muscle strength: 4/5 DTR: 1+ Plantar reflex: flexor Gait: not examined in bed. Sensory exam: no abnormal findings. No cerebellar signs elicited. Minimal postural tremor, within physiologic range Review of Relevant I have reviewed the following items leila (where applicable) has been applied. Labs Laboratory Tests Test 06/30/17 05:45 07/01/17 04:00 White Blood Count 6.4 x10^3/uL (4.0-11.0) Red Blood Count 2.91 x10^6/uL (3.50-5.40) Hemoglobin 10.5 g/dL (12.0-15.5) Hematocrit 30.9 % (36.0-47.0) Mean Corpuscular Volume 106 fL (79-100) Mean Corpuscular Hemoglobin 36 pg (25-35) Mean Corpuscular Hemoglobin Concent 34 g/dL (31-37) Red Cell Distribution Width 15.9 % (11.5-14.5) Platelet Count 133 x10^3/uL (140-400) Neutrophils (%) (Auto) 79 % (31-73) Lymphocytes (%) (Auto) 16 % (24-48) Monocytes (%) (Auto) 5 % (0-9) Eosinophils (%) (Auto) 0 % (0-3) Basophils (%) (Auto) 1 % (0-3) Neutrophils # (Auto) 5.0 x10^3uL (1.8-7.7) Lymphocytes # (Auto) 1.0 x10^3/uL (1.0-4.8) Monocytes # (Auto) 0.3 x10^3/uL (0.0-1.1) Eosinophils # (Auto) 0.0 x10^3/uL (0.0-0.7) Basophils # (Auto) 0.0 x10^3/uL (0.0-0.2) Prothrombin Time 27.9 SEC (11.7-14.0) Prothromb Time International Ratio 2.8 (0.8-1.1) Sodium Level 137 mmol/L (136-145) 135 mmol/L (136-145) Potassium Level 4.1 mmol/L (3.5-5.1) 3.9 mmol/L (3.5-5.1) Chloride Level 102 mmol/L (98-107) 101 mmol/L (98-107) Carbon Dioxide Level 29 mmol/L (21-32) 27 mmol/L (21-32) Anion Gap 6 (6-14) 7 (6-14) Blood Urea Nitrogen 33 mg/dL (7-20) 26 mg/dL (7-20) Creatinine 1.0 mg/dL (0.6-1.0) 1.0 mg/dL (0.6-1.0) Estimated GFR (Cockcroft-Gault) 53.9 53.9 BUN/Creatinine Ratio 33 (6-20) Glucose Level 90 mg/dL (70-99) 85 mg/dL (70-99) Calcium Level 8.0 mg/dL (8.5-10.1) 8.4 mg/dL (8.5-10.1) Phosphorus Level 2.2 mg/dL (2.6-4.7) 2.1 mg/dL (2.6-4.7) Magnesium Level 2.3 mg/dL (1.8-2.4) Total Bilirubin 0.2 mg/dL (0.2-1.0) Aspartate Amino Transf (AST/SGOT) 35 U/L (15-37) Alanine Aminotransferase (ALT/SGPT) 32 U/L (14-59) Alkaline Phosphatase 52 U/L (46-116) Total Protein 5.6 g/dL (6.4-8.2) Albumin 2.5 g/dL (3.4-5.0) 2.6 g/dL (3.4-5.0) Albumin/Globulin Ratio 0.8 (1.0-1.7) Laboratory Tests Test 07/01/17 04:00 Sodium Level 135 mmol/L (136-145) Potassium Level 3.9 mmol/L (3.5-5.1) Chloride Level 101 mmol/L (98-107) Carbon Dioxide Level 27 mmol/L (21-32) Anion Gap 7 (6-14) Blood Urea Nitrogen 26 mg/dL (7-20) Creatinine 1.0 mg/dL (0.6-1.0) Estimated GFR (Cockcroft-Gault) 53.9 Glucose Level 85 mg/dL (70-99) Calcium Level 8.4 mg/dL (8.5-10.1) Phosphorus Level 2.1 mg/dL (2.6-4.7) Albumin 2.6 g/dL (3.4-5.0) Medications Current Medications Acetaminophen (Tylenol) 500 mg PRN Q6HRS PRN PO MILD PAIN / TEMP Last administered on 07/01/17 04:03; Start 06/23/17 at 20:45 Allopurinol (Zyloprim) 100 mg DAILY PO Last administered on 07/01/17 07:55; Start 06/24/17 at 09:00 Alprazolam (Xanax) 0.25 mg PRN BID PRN PO ANXIETY / AGITATION Last administered on 07/01/17 07:55; Start 06/23/17 at 20:45 Furosemide (Lasix) 80 mg BID94 PO Last administered on 06/24/17 08:25; Start 06/24/17 at 09:00; Stop 06/24/17 at 11:09; Status DC Guaifenesin (MUCINEX ER with DM) 1 tab PRN Q12HRS PRN PO MUCOUS/CONGESTION; Start 06/23/17 at 20:45 Levothyroxine Sodium (Synthroid) 100 mcg DAILY07 PO ; Start 06/24/17 at 07:00; Stop 06/24/17 at 07:00; Status DC Potassium Chloride (Klor-Con) 40 meq QID PO ; Start 06/23/17 at 21:00; Stop at 22:13; Status DC Propafenone HCl (Rythmol) 150 mg BID PO Last administered on 07/01/17 07:56; Start 06/23/17 at 21:00 Spironolactone (Aldactone) 25 mg BID94 PO Last administered on 06/26/17 08:20; Start 06/24/17 at 09:00; Stop 06/26/17 at 12:34; Status DC Tramadol HCl (Ultram) 50 mg PRN Q6HRS PRN PO PAIN Last administered on 21:32; Start 06/23/17 at 20:45 Trazodone HCl (Desyrel) 25 mg HS PO Last administered on 06/30/17 21:32; Start 06/23/17 at 21:00 Warfarin Sodium (Coumadin) 9 mg DAILY16 PO ; Start 06/24/17 at 16:00; Stop 06/24 at 16:00; Status DC Non-Formulary Medication 1,000 mg BID PO ; Start 06/23/17 at 21:00; Stop at 21:00; Status DC Calcium/Vitamin D (Oscal D 500mg/ 200uts) 1 tab BIDAFTMEAL PO Last administered on 07/01/17 07:56; Start 06/24/17 at 09:00 Cetirizine HCl (ZyrTEC) 10 mg PRN DAILY PRN PO ALLERGIES Last administered on 20:38; Start 06/24/17 at 09:00 Fish Oil (Fish Oil) 1,000 mg DAILY PO Last administered on 07/01/17 07:55; Start 06/24/17 at 09:00 Pantoprazole Sodium (Protonix) 40 mg DAILYAC PO Last administered on 07/01/17 07:56; Start 06/24/17 at 07:30 Paroxetine HCl (Paxil) 20 mg DAILY PO Last administered on 07/01/17 07:56; Start 06/24/17 at 09:00 Artificial Tears (Artificial Tears) 1 drop DAILY OU Last administered on 08:24; Start 06/24/17 at 09:00; Stop 06/29/17 at 10:24; Status DC Hydroxychloroquine Sulfate (Plaquenil) 200 mg DAILY08 PO Last administered on 07:55; Start 06/24/17 at 09:00 Ferrous Sulfate (Feosol) 325 mg DAILYWBKFT PO Last administered on 07/01/17 07: 55; Start 06/24/17 at 08:00 Multivitamins/ Minerals (I-Cristiano) 1 tab BID PO Last administered on 07/01/17 07: 55; Start 06/24/17 at 09:00 Methotrexate (Rheumatrex) 17.5 mg We@0900 PO Last administered on 06/26/17 08: 38; Start 06/26/17 at 09:00 Warfarin Sodium (Coumadin Per Pharmacy) 1 each PRN DAILY PRN MC SEE COMMENTS Last administered on 06/30/17 13:12; Start 06/23/17 at 21:00 Calcium Gluconate (Calcium Gluconate) 1,000 mg 1X ONCE IVP Last administered on 06/23/17 21:42; Start 06/23/17 at 21:30; Stop 06/23/17 at 21:31; Status DC Dextrose (Dextrose 50%-Water Syringe) 25 gm 1X ONCE IV Last administered on 22:00; Start 06/23/17 at 21:30; Stop 06/23/17 at 21:31; Status DC Insulin Human Regular (NovoLIN R VIAL) 10 unit 1X ONCE IV Last administered on 06/23/17 21:58; Start 06/23/17 at 21:30; Stop 06/23/17 at 21:31; Status DC Sodium Bicarbonate 50 meq 1X ONCE IV Last administered on 06/23/17 21:49; Start 06/23/17 at 21:45; Stop 06/23/17 at 21:46; Status DC Sodium Bicarbonate 150 meq/Dextrose 1,150 ml @ 100 mls/hr [id number] IV Last administered on 06/23/17 22:39; Start 06/23/17 at 22:30; Stop 06/24/17 at 11:09 ; Status DC Sodium Polystyrene Sulfonate (Kayexalate) 30 gm 1X ONCE PO Last administered on 06/23/17 22:37; Start 06/23/17 at 22:30; Stop 06/23/17 at 22:31; Status DC Sodium Polystyrene Sulfonate (Kayexalate) 15 gm 1X PRN PRN PO K+ >6 4 HOURS AFTER INITIAL DOSE; Start 06/23/17 at 22:45; Stop 06/25/17 at 08:47; Status DC Fentanyl Citrate (Fentanyl 2ml Vial) 50 mcg PRN Q2HR PRN IV PAIN; Start at 23:30; Stop 06/24/17 at 23:29; Status DC Acetaminophen (Tylenol) 650 mg PRN Q4HRS PRN PO FEVER Last administered on 06/24 20:27; Start 06/23/17 at 23:30; Stop 06/24/17 at 23:29; Status DC Levothyroxine Sodium (Synthroid) 100 mcg DAILY08 PO Last administered on 07:56; Start 06/24/17 at 08:00 Phytonadione (Mephyton) 2.5 mg 1X ONCE PO Last administered on 06/24/17 06:06 ; Start 06/24/17 at 06:00; Stop 06/24/17 at 06:01; Status DC Potassium Chloride (Klor-Con) 40 meq 1X ONCE PO Last administered on 06:06; Start 06/24/17 at 06:00; Stop 06/24/17 at 06:01; Status DC Potassium Chloride (Klor-Con) 40 meq 1X ONCE PO Last administered on 09:43; Start 06/24/17 at 09:45; Stop 06/24/17 at 09:46; Status DC Potassium Chloride (Klor-Con) 40 meq 1X ONCE PO Last administered on 15:31; Start 06/24/17 at 14:00; Stop 06/24/17 at 14:01; Status DC Warfarin Sodium (Coumadin - No Dose Today) 1 each 1X WARF ONCE MC Last administered on 06/24/17 10:19; Start 06/24/17 at 16:00; Stop 06/24/17 at 16:01 ; Status DC Magnesium Sulfate/ Dextrose 50 ml @ 25 mls/hr PRN DAILY PRN IV for Mag < 1.7 on am labs; Start 06/24/17 at 11:00 Potassium Chloride 40 meq/ Sodium Chloride 1,020 ml @ 75 mls/hr [id number] IV Last administered on 06/25/17 03:22; Start 06/24/17 at 12:00; Stop 06/25/17 at 08 :47; Status DC Potassium Chloride 50 ml @ 25 mls/hr Q2HR IV Last administered on 06/25/17 03: 21; Start 06/24/17 at 20:00; Stop 06/25/17 at 07:59; Status DC Enoxaparin Sodium (Lovenox Per Pharmacy Prophylaxis Dosing) 1 each PRN DAILY PRN MC SEE COMMENTS; Start 06/25/17 at 09:00; Stop 06/30/17 at 07:30; Status DC Enoxaparin Sodium (Lovenox 30mg Syringe) 30 mg Q24H SQ Last administered on 06/29 09:43; Start 06/25/17 at 09:00; Stop 06/30/17 at 07:30; Status DC Warfarin Sodium (Coumadin) 6 mg 1X WARF ONCE PO Last administered on 06/25/17 17:08; Start 06/25/17 at 16:00; Stop 06/25/17 at 16:01; Status DC Potassium Chloride (Klor-Con) 20 meq 1X ONCE PO Last administered on 06/25/17 21:07; Start 06/25/17 at 20:00; Stop 06/25/17 at 20:01; Status DC Potassium Chloride 100 ml @ 100 mls/hr Q1H IV Last administered on 06/26/17 09 :39; Start 06/26/17 at 05:30; Stop 06/26/17 at 09:29; Status DC Potassium Chloride (Klor-Con) 40 meq 1X ONCE PO Last administered on 06/26/17 09:40; Start 06/26/17 at 09:30; Stop 06/26/17 at 09:33; Status DC Potassium Chloride (Klor-Con) 40 meq 1X ONCE PO Last administered on 06/26/17 11:30; Start 06/26/17 at 11:30; Stop 06/26/17 at 11:31; Status DC Warfarin Sodium (Coumadin) 8 mg 1X WARF ONCE PO Last administered on 06/26/17 17:16; Start 06/26/17 at 16:00; Stop 06/26/17 at 16:01; Status DC Potassium Chloride (Klor-Con) 40 meq TIDWMEALS PO Last administered on 16:54; Start 06/27/17 at 08:00; Stop 06/27/17 at 18:00; Status DC Warfarin Sodium (Coumadin) 9 mg 1X WARF ONCE PO Last administered on 06/27/17 16:53; Start 06/27/17 at 16:00; Stop 06/27/17 at 16:01; Status DC Warfarin Sodium (Coumadin) 6 mg 1X WARF ONCE PO Last administered on 06/28/17 15:57; Start 06/28/17 at 16:00; Stop 06/28/17 at 16:01; Status DC Bisacodyl (Dulcolax Tab) 5 mg PRN DAILY PRN PO CONSTIPATION Last administered on 06/29/17 09:43; Start 06/28/17 at 15:45 Artificial Tears (Artificial Tears) 1 drop HS OU Last administered on 06/30/17 21:32; Start 06/29/17 at 21:00 Potassium Chloride (Klor-Con) 40 meq 1X ONCE PO ; Start 06/29/17 at 11:15; Stop 06/29/17 at 11:16; Status UNV Potassium Chloride (KCl Oral Soln) 40 meq Q4H PO Last administered on 06/29/17 16:29; Start 06/29/17 at 11:30; Stop 06/29/17 at 15:31; Status DC Magnesium Sulfate/ Dextrose 50 ml @ 25 mls/hr 1X ONCE IV ; Start 06/29/17 at 11: 15; Stop 06/29/17 at 13:14; Status UNV Warfarin Sodium (Coumadin) 5 mg 1X WARF ONCE PO Last administered on 06/29/17 16:31; Start 06/29/17 at 16:00; Stop 06/29/17 at 16:01; Status DC Magnesium Hydroxide (Milk Of Magnesia) 2,400 mg PRN DAILY PRN PO CONSTIPATION Last administered on 06/30/17 08:19; Start 06/29/17 at 15:00 Potassium Chloride (Klor-Con) 20 meq DAILYWBKFT PO Last administered on 07:55; Start 07/01/17 at 08:00 Warfarin Sodium (Coumadin) 6 mg 1X WARF ONCE PO Last administered on 06/30/17 16:02; Start 06/30/17 at 16:00; Stop 06/30/17 at 16:01; Status DC Active Scripts Active Reported Methotrexate (Methotrexate Sodium) 2.5 Mg Tablet 7 Tab PO SATURDAY [hydroxyl-chloroquine] 200 Mg PO DAILY08 Calcium + Vitamin D Tablet (Calcium Carbonate/Vitamin D3) 1 Each Tablet 1 Each PO BID Furosemide 80 Mg Tablet 1 Tab PO BID Claritin (Loratadine) 10 Mg Tablet 1 Tab PO DAILY PRN Coumadin (Warfarin Sodium) 6 Mg Tablet 1.5 Tab PO FR,MO Coumadin (Warfarin Sodium) 6 Mg Tablet 6 Mg PO ,,TH,SA,DUNCAN Klor-Con M20 (Potassium Chloride) 20 Meq Tab.er.prt 40 Meq PO QID Acetaminophen 500 Mg Tablet 1 Tab PO PRN Q6HRS PRN Mucinex Dm Er 600-30 Mg Tablet (Guaifenesin/Dextromethorphan) 1 Each Tab.er.12h 1 Tab PO PRN Q12HRS Trazodone Hcl 50 Mg Tablet 25 Mg PO HS Propafenone Hcl 150 Mg Tablet 150 Mg PO BID Systane 0.3-0.4% Eye Drops (Propylene Glycol/Peg 400/Pf) 1 Each Droperette 1 Each OP DAILY Xanax (Alprazolam) 0.25 Mg Tablet 1 Tab PO PRN BID PRN Biotin 1 Mg Capsule 1,000 Mg PO BID [lutein] 1 Tab BID [Iron ] 1 Tab DAILY Aldactone (Spironolactone) 25 Mg Tablet 1 Tab PO BID Omeprazole 40 Mg Capsule.dr 40 Mg PO DAILY Tramadol Hcl 50 Mg Tablet 50 Mg PO PRN Q6HRS PRN Fish Oil 1,000 Mg Softgel ([place]-3 Fatty Acids/Fish Oil) 1 Each Capsule 1 Each PO DAILY Allopurinol 100 Mg Tablet 100 Mg PO DAILY Paxil (Paroxetine Hcl) 40 Mg Tablet 20 Mg PO DAILY Levothyroxine Sodium 100 Mcg Tablet 100 Mcg PO DAILY Vitals/I & O Vital Sign - Last 24 Hours 06/30/17 06/30/17 06/30/17 06/30/17 11:00 15:00 16:03 17:03 Temp 98.2 98.7 98.2 98.7 Pulse 83 92 Resp 18 18 18 18 B/P (MAP) 99/63 (75) 104/60 (75) Pulse Ox 100 98 98 98 O2 Delivery Room Air Room Air Room Air 06/30/17 06/30/17 06/30/17 06/30/17 19:10 20:20 21:33 22:35 Temp 98.5 98.5 Pulse 95 111 Resp 18 B/P (MAP) 111/80 (90) 80/95 Pulse Ox 98 O2 Delivery Room Air Room Air Room Air 06/30/17 07/01/17 07/01/17 07/01/17 23:10 03:10 07:00 07:56 Temp 98.5 98.2 97.7 98.5 98.2 97.7 Pulse 87 89 92 89 Resp 17 18 18 B/P (MAP) 103/64 (77) 118/60 (79) 121/68 (85) 128/68 Pulse Ox 100 98 99 O2 Delivery Room Air Room Air Intake and Output 06/30/17 06/30/17 07/01/17 15:00 23:00 07:00 Intake Total 240 ml 200 ml Balance 240 ml 200 ml DYLAN GALVAN MD Jul 01, 2017 09:46
[2017-07-01 10:35] VITALS: BP 98/59
--- NOTE | 2017-07-01 11:59 | PDOC ---
Renal-Progress Notes Subjective Notes Notes NONE History of Present Illness Hx of present illness BETTER Vitals Vitals Vital Signs Date Time Temp Pulse Resp B/P (MAP) Pulse Ox O2 Delivery O2 Flow Rate FiO2 07/01/17 10:35 99.2 87 16 98/59 (72) 100 Room Air 99.2 Weight Weight [ ] I.O. Intake and Output Intake and Output 07/01/17 07:00 Intake Total 440 ml Balance 440 ml Intake Oral 440 ml # Voids 4 Labs Labs Laboratory Tests Test 07/01/17 04:00 Sodium Level 135 mmol/L (136-145) Potassium Level 3.9 mmol/L (3.5-5.1) Chloride Level 101 mmol/L (98-107) Carbon Dioxide Level 27 mmol/L (21-32) Anion Gap 7 (6-14) Blood Urea Nitrogen 26 mg/dL (7-20) Creatinine 1.0 mg/dL (0.6-1.0) Estimated GFR (Cockcroft-Gault) 53.9 Glucose Level 85 mg/dL (70-99) Calcium Level 8.4 mg/dL (8.5-10.1) Phosphorus Level 2.1 mg/dL (2.6-4.7) Albumin 2.6 g/dL (3.4-5.0) Review of Systems Constitutional: yes: no symptom reported Ears/Nose/Throat: Yes: no symptom reported Eyes: Yes: no symptom reported Pulmonary: Yes no symptom reported Cardiovascular: Yes no symptom reported Gastrointestional: Yes: no symptom reported Genitourinary: Yes: no symptom reported Musculoskeletal: Yes: no symptom reported Skin: Yes no symptom reported Psychiatric/Neurological: Yes: no symptom reported Physical Exam General Appearance: no apparent distress Respiratory: bilateral CTA Heart: S1S2, RRR Abdomen: soft, bowel sounds present Extremities: pulses present Neurology: alert Musculoskeletal: Osteoarthritis, Stiffness Assessment Assessment IMP AL-RESOLVED PLAN WILL SIGN OFF PLEASE CALL IF NEEDED NADIA EVANS MD Jul 01, 2017 11:59
[2017-07-01] MEDS: traMADol 50 MG TABLET PO PRN (13:43)
--- NOTE | 2017-07-01 14:28 | PDOC ---
PROGRESS NOTES Chief Complaint Chief Complaint FTT Uremia hypokalemia ASSESSMENT AND PLAN: 1. Weakness, shortness breath, nausea, abdominal pain and generalized debility : improving. OT/PT eval for rehab 2. AL/uremia: 2/2 dehydration. creat at baseline, BUN still quite elevated. monitor closely off fluids or lasix; spironolactone started 3. CHF: chronic systolic (echo 06/24 with EF 40%, mod aortic stenosis/regurg). Dr Ross following. currently off any diuretic. (previously on 80 bid) 4. Hyponatremia: resolved 5. Hyperkalemia, now hypokalemia: resolved. monitor 7. Hypocalcemia: replete; Vit D WNL 8. Toe pain (corn): Dr Stephens - not coming to hospital; F/U on O/P basis 9. Acoustic neuroma L: O/P NS and neurology F/U; 9. Dispo: dc when CV stable History of Present Illness History of Present Illness breathing ok. no new issues up to chair, no new complaint Vitals Vitals Vital Signs Date Time Temp Pulse Resp B/P (MAP) Pulse Ox O2 Delivery O2 Flow Rate FiO2 07/01/17 13:43 100 Room Air 07/01/17 10:35 99.2 87 16 98/59 (72) 99.2 Physical Exam General: Alert, Oriented X3, Cooperative, No acute distress Heart: Regular rate, Normal S1, Normal S2, Other (no change in diastolic murmur ) Lungs: Clear Abdomen: Normal bowel sounds, Soft, No tenderness Extremities: No edema Skin: No rashes, No significant lesion Labs LABS Laboratory Tests Test 07/01/17 04:00 Sodium Level 135 mmol/L (136-145) Potassium Level 3.9 mmol/L (3.5-5.1) Chloride Level 101 mmol/L (98-107) Carbon Dioxide Level 27 mmol/L (21-32) Anion Gap 7 (6-14) Blood Urea Nitrogen 26 mg/dL (7-20) Creatinine 1.0 mg/dL (0.6-1.0) Estimated GFR (Cockcroft-Gault) 53.9 Glucose Level 85 mg/dL (70-99) Calcium Level 8.4 mg/dL (8.5-10.1) Phosphorus Level 2.1 mg/dL (2.6-4.7) Albumin 2.6 g/dL (3.4-5.0) Nutrition Consultation Dietary Evaluation: Recommendations by RD: Dietary education by RD Comments: po intake improves with food preferences continue with food preferences/ pt calling dietary for foods she likes Expected Outcomes/Goals: to meet > 50% est nutr needs- met, goal ongoing Interpretation of weight loss: >5% in 1 month Malnutrition Findings: Body Fat Depletion (Non Severe: Mild Depletion Weight Status: Appropriate AMBROCIO MONTILLA MD Jul 01, 2017 14:28
[2017-07-01] MEDS ORDERED: POTA20TA4 PO (14:52)
[2017-07-01] MEDS ORDERED: SPIR25TA PO (14:52)
[2017-07-01] MEDS ORDERED: FURO-68 PO (14:52)
[2017-07-01 15:16] VITALS: BP 109/70
[2017-07-01] MEDS ORDERED: WARFARIN 5 MG TABLET. PO ONE (16:00)
--- NOTE | 2017-07-02 22:28 | DS ---
DATE OF DISCHARGE: 07/01/2017 CHIEF COMPLAINT: Weakness. HOSPITAL COURSE: The patient is a 76-year-old woman well known to Dr. Ross with valvular heart disease including aortic insufficiency as well as cardiomyopathy and renal insufficiency, who presented to the Emergency Room with severe fatigue, weakness, muscle aches and shortness of breath. She was with hyperkalemia of 6.5 as well as coagulopathy with an INR of 6.7 and was promptly admitted to the CVICU for further monitoring. She received immediate replacement of her potassium as well as Kayexalate and bicarb and also was given FFP to reverse her coagulopathy. Subsequently, she was determined to be severely dehydrated with acute kidney injury and uremia, which improved with IV fluid replacement. This was closely monitored. Her home dose of Lasix 80 b.i.d. was initially held, at the time of discharge she was placed on both spironolactone 25 as well as Lasix 40 daily. An echo was obtained confirming her previous diagnosis with an EF of 40% and moderate aortic stenosis/regurg. For her electrolytes, she underwent repletion. This included hyponatremia, hypokalemia as well as hypocalcemia. She was seen for ear problems by Neurology and follow up with Neurosurgery was strongly recommended on an outpatient basis when heart issues were stable. 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 Consult was not ____. The patient will follow up on an outpatient basis. PHYSICAL EXAMINATION: VITAL SIGNS: With a blood pressure of 98/59, heart rate of 87, respiratory rate of 16. She is afebrile. GENERAL: She is alert and oriented, in no acute distress. HEART: Has regular rate and rhythm. LUNGS: Clear. ABDOMEN: Has positive bowel sounds, soft, nontender. EXTREMITIES: Show no edema. SKIN: Warm, soft and dry. DISCHARGE DATE: 07/01/2017 DISCHARGE DISPOSITION: To home with home health. DISCHARGE CONDITION: Improved. DISCHARGE DIAGNOSES: Dehydration, acute kidney injury. DISCHARGE MEDICATIONS: Please refer to MAR. DISCHARGE INSTRUCTIONS: The patient will follow up with Dr. Ross in 1 week for CHF and Lasix management. AMBROCIO MONTILLA MD DR: MEGHA/yo JOB#: [id number] / [id number] CHRISTIAN Deshpande MD
== END 2017-07-01 15:45 | disposition home health service (06) | DRG 682 ==
LOC: ER 19:29 → 1 WEST ICU 22:16 → 2 SOUTH 06-25 11:15
PROVIDERS: ADMIT Internal Medicine; ATTEND Internal Medicine
PROC: 30233L1 Transfusion of Nonautologous Fresh Plasma into Peripheral Vein, Percutaneous Approach (ICD-10-PCS; principal; 2017-06-24)
PROC: 30233K1 Transfusion of Nonautologous Frozen Plasma into Peripheral Vein, Percutaneous Approach (ICD-10-PCS; 2017-06-24)
DX: N17.0 Acute kidney failure with tubular necrosis (principal); G93.40 Encephalopathy, unspecified; I50.22 Chronic systolic (congestive) heart failure; D68.9 Coagulation defect, unspecified; I42.9 Cardiomyopathy, unspecified; I13.0 Hypertensive heart and chronic kidney disease with heart failure and stage 1 through stage 4 chronic kidney disease, or unspecified chronic kidney disease; E87.1 Hypo-osmolality and hyponatremia; E87.5 Hyperkalemia; Z82.49 Family history of ischemic heart disease and other diseases of the circulatory system; E03.9 Hypothyroidism, unspecified; E78.5 Hyperlipidemia, unspecified; E87.6 Hypokalemia; M06.9 Rheumatoid arthritis, unspecified; M10.9 Gout, unspecified; M81.0 Age-related osteoporosis without current pathological fracture; N18.3 Chronic kidney disease, stage 3 (moderate); K21.9 Gastro-esophageal reflux disease without esophagitis; I48.91 Unspecified atrial fibrillation; I08.3 Combined rheumatic disorders of mitral, aortic and tricuspid valves; E86.0 Dehydration; G25.0 Essential tremor; E66.01 Morbid (severe) obesity due to excess calories; D33.3 Benign neoplasm of cranial nerves; E83.51 Hypocalcemia; F32.9 Major depressive disorder, single episode, unspecified; F41.9 Anxiety disorder, unspecified; D64.9 Anemia, unspecified; Z80.9 Family history of malignant neoplasm, unspecified; Z79.899 Other long term (current) drug therapy; Z79.01 Long term (current) use of anticoagulants; Z85.118 Personal history of other malignant neoplasm of bronchus and lung; Z86.73 Personal history of transient ischemic attack (TIA), and cerebral infarction without residual deficits; Z90.2 Acquired absence of lung [part of]; Z95.0 Presence of cardiac pacemaker; Z89.422 Acquired absence of other left toe(s); Z89.421 Acquired absence of other right toe(s); Z79.1 Long term (current) use of non-steroidal anti-inflammatories (NSAID); Z90.49 Acquired absence of other specified parts of digestive tract; Z68.20 Body mass index [BMI] 20.0-20.9, adult; Z88.8 Allergy status to other drugs, medicaments and biological substances; Z88.5 Allergy status to narcotic agent
CPT/HCPCS: 36415; 71010; 71250; 74022; 74176; 80048; 80053; 80069; 81001; 82306; 82310; 82550; 83605; 83690; 83735; 83880; 84100; 84132; 84443; 84484; 85007; 85027; 85610; 85730; 86850; 86900; 86901; 86927; 87641; 93005; 93306; 95816; 96374; 96375; J0610; J1650; J1815; J3480; J7030; J7042; J8610; P9017; 97110; 97116; 97530; 97535; 99285-25

== ENCOUNTER 2017-07-07 11:42 | Inpatient (IN) | payer MEDICARE ==
[~2017-07-07] VITALS: Ht 157.5 cm; Wt 51.9 kg
[~2017-07-07 11:42] MED LIST changes: +FURO-68 PO
[2017-07-07 12:04] LABS: BILIRUBIN,URINE NEGATIVE (NEG); GLUCOSE,URINE NEGATIVE (NEG); NITRITE,URINE NEGATIVE (NEG); PROTEIN,URINE NEGATIVE (NEG-TRACE); UROBILINOGEN,URINE 0.2 mg/dL (0.2 mg/dL)
[2017-07-07 12:11] LABS: BACTERIA,URINE FEW /HPF (0-FEW); RBC,URINE 0 /HPF (0-2); SQUAMOUS EPITHELIAL CELL,UR OCC /LPF; WBC,URINE 0 /HPF (0-4)
--- NOTE | 2017-07-07 12:20 | ED.ADGEN ---
Past Medical History Past Medical History: A-Fib, Anxiety, Cancer, CHF, Depression, GERD, Hypothyroid, Lung Disease, TIA Additional Past Medical Histor: HISTORY OF LEFT LUNG CANCER Past Surgical History: Pacemaker, Other Additional Past Surgical Histo: Lt lung lobectomy, RT HIP, RT LEG, LT SHOULDER Alcohol Use: None Drug Use: None Adult General Chief Complaint Chief Complaint: SHORTNESS OF BREATH HPI HPI Patient is a 76 year old woman, with history of atrial fibrillation, renal insufficiency, CHF, CAD, status post pacemaker placement, TIA, lung cancer status post lobectomy on the left, who was admitted to the hospital on 06/23 with renal failure and hyperkalemia, and a supratherapeutic INR, who presents emergency Department with complaint of increasing shortness of breath, lower extremity swelling, and generalized weakness over the past several days. Patient states that she's not expressing any chest pain, any nausea or vomiting , states she is making a small amount of urine but it is painless and is her year-old usual amount. She denies any injuries, any focal weakness, numbness or tingling, any headache, or vision changes. 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 Review of Systems Review of Systems Constitutional: Denies fever or chills. [] Eyes: Denies change in visual acuity. [] HENT: Denies nasal congestion or sore throat. [] Respiratory: Denies cough, complaining of shortness of breath worsening over the past several days. Cardiovascular: Denies chest pain, swelling in the bilateral lower extremities. GI: Denies abdominal pain, nausea, vomiting, bloody stools or diarrhea. [] : Denies dysuria. [] Musculoskeletal: Denies back pain or joint pain. [] Integument: Denies rash. [] Neurologic: Denies headache, focal weakness or sensory changes. [] Endocrine: Denies polyuria or polydipsia. [] Lymphatic: Denies swollen glands. [] Psychiatric: Denies depression or anxiety. [] Allergies Allergies Allergies Coded Allergies Type Severity Reaction Last Updated Verified adhesive Allergy Intermediate "Breaks out" 04/02/16 Yes albuterol Allergy Intermediate "CAN'T BREATHE" 04/02/16 Yes codeine Allergy Intermediate "Breaks out." 04/02/16 Yes oxycodone Allergy Intermediate Rash 04/02/16 Yes duloxetine Adverse Reaction Intermediate edema 04/02/16 Yes pregabalin Adverse Reaction Intermediate edema 04/02/16 Yes Physical Exam Physical Exam Constitutional: Well developed, well nourished, no acute distress, non-toxic appearance. [] HENT: Normocephalic, atraumatic, bilateral external ears normal, oropharynx moist, no oral exudates, nose normal. [] Eyes: PERRLA, EOMI, conjunctiva normal, no discharge. [] Neck: Normal range of motion, no tenderness, supple, no stridor. [] Cardiovascular:Heart rate regular rhythm, no murmur, S1, S2, rubs or gallops, soft heart sounds. [] Lungs & Thorax: No wheezing, rhonchi, rales. Diminished breath of the bases bilateral. [] Abdomen: Bowel sounds normal, soft, no tenderness, no rebound, rigidity, no guarding, no masses, no pulsatile masses. [] Skin: Warm, dry, no erythema, no rash. [] Back: No tenderness, no CVA tenderness. [] Extremities: No tenderness, no cyanosis, no clubbing, ROM intact, 2+ pitting edema bilaterally in the lower extremities. Neurologic: Alert and oriented X 3, normal motor function, normal sensory function, no focal deficits noted. [] Psychologic: Affect normal, judgement normal, mood normal. [] Current Patient Data Vital Signs Vital Signs Date Time Temp Pulse Resp B/P (MAP) Pulse Ox O2 Delivery O2 Flow Rate FiO2 07/07/17 11:42 98.3 95 18 112/71 (85) 98 Room Air 98.3 Lab Values Laboratory Tests Test 07/07/17 11:50 07/07/17 12:05 Urine Color Yellow Urine Clarity Clear Urine pH 6.0 Urine Specific [place] <=1.005 Urine Protein Negative mg/dL (NEG-TRACE) Urine Glucose (UA) Negative mg/dL (NEG) Urine Ketones (Stick) Negative mg/dL (NEG) Urine Blood Negative (NEG) Urine Nitrite Negative (NEG) Urine Bilirubin Negative (NEG) Urine Urobilinogen Dipstick 0.2 mg/dL (0.2 mg/dL) Urine Leukocyte Esterase Negative (NEG) Urine RBC 0 /HPF (0-2) Urine WBC 0 /HPF (0-4) Urine Squamous Epithelial Cells Occ /LPF Urine Bacteria Few /HPF (0-FEW) Urine Hyaline Casts Few /HPF White Blood Count 4.8 x10^3/uL (4.0-11.0) Red Blood Count 3.23 x10^6/uL (3.50-5.40) L Hemoglobin 11.7 g/dL (12.0-15.5) L Hematocrit 34.7 % (36.0-47.0) L Mean Corpuscular Volume 108 fL (79-100) H Mean Corpuscular Hemoglobin 36 pg (25-35) H Mean Corpuscular Hemoglobin Concent 34 g/dL (31-37) Red Cell Distribution Width 17.5 % (11.5-14.5) H Platelet Count 223 x10^3/uL (140-400) Neutrophils (%) (Auto) 77 % (31-73) H Lymphocytes (%) (Auto) 16 % (24-48) L Monocytes (%) (Auto) 5 % (0-9) Eosinophils (%) (Auto) 1 % (0-3) Basophils (%) (Auto) 1 % (0-3) Neutrophils # (Auto) 3.7 x10^3uL (1.8-7.7) Lymphocytes # (Auto) 0.8 x10^3/uL (1.0-4.8) L Monocytes # (Auto) 0.3 x10^3/uL (0.0-1.1) Eosinophils # (Auto) 0.0 x10^3/uL (0.0-0.7) Basophils # (Auto) 0.0 x10^3/uL (0.0-0.2) Prothrombin Time 27.4 SEC (11.7-14.0) H Prothrombin Time INR 2.8 (0.8-1.1) H PTT 33 SEC (24-38) Sodium Level 137 mmol/L (136-145) Potassium Level 4.6 mmol/L (3.5-5.1) Chloride Level 103 mmol/L (98-107) Carbon Dioxide Level 25 mmol/L (21-32) Anion Gap 9 (6-14) Blood Urea Nitrogen 33 mg/dL (7-20) H Creatinine 1.2 mg/dL (0.6-1.0) H Estimated GFR (Cockcroft-Gault) 43.7 BUN/Creatinine Ratio 28 (6-20) H Glucose Level 85 mg/dL (70-99) Calcium Level 8.4 mg/dL (8.5-10.1) L Total Bilirubin 0.4 mg/dL (0.2-1.0) Aspartate Amino Transferase (AST) 255 U/L (15-37) H Alanine Aminotransferase (ALT) 446 U/L (14-59) H Alkaline Phosphatase 127 U/L (46-116) H Troponin I Quantitative 0.059 ng/mL (0.000-0.055) XK-Ldw-H-Type Natriuretic Peptide 9992 pg/mL (0-449) H Total Protein 6.9 g/dL (6.4-8.2) Albumin 3.3 g/dL (3.4-5.0) L Albumin/Globulin Ratio 0.9 (1.0-1.7) L Laboratory Tests 07/07/17 12:05 Laboratory Tests 07/07/17 12:05 EKG EKG EC: Paced rhythm, left axis deviation, heart rate 86 bpm, interpretation limited secondary to paced rhythm, QTC of 497, QRS of 230, compared to ECG from 06/23/2017, ECG also paced, no significant morphologic changes identified. As interpreted by me.] Radiology/Procedures Radiology/Procedures [][facility] [address] [place] [address] IMAGING REPORT Signed PATIENT: ZACKARY TAVARES ACCOUNT: [id number] : 1940 LOCATION: ER AGE: 76 SEX: F EXAM STATUS: REG ER ORD. PHYSICIAN: ROCIO HAILE DO REASON: SOB PROCEDURE: PORTABLE CHEST 1V AP portable chest radiograph 07/07/2017 Clinical History: Shortness of breath since earlier today. An AP portable erect digital radiograph of the chest was obtained. Comparison study is dated 06/24/2017. A pacemaker is unchanged in position. Surgical clips overlie the left upper quadrant of the abdomen. The cardiac silhouette is mildly enlarged. Atherosclerotic calcification of the thoracic aorta is seen. The thoracic aorta is tortuous. Mild elevation of the left hemidiaphragm is again noted. Surgical clips overlie the left hilum, unchanged. No acute pulmonary infiltrate is seen. No pleural effusion or pneumothorax is noted. The osseous structures are unchanged. Impression: No acute abnormality is seen. DICTATED and SIGNED BY: LIZABETH HUNTER MD DATE: 07/07/17 1230 CC: ROCIO HAILE DO; CHRISTIAN POSADA MD ~ Course & Med Decision Making Course & Med Decision Making Pertinent Labs and Imaging studies reviewed. (See chart for details) Patient complaining of weakness, dyspnea, noted to have pitting edema in lower extremities which she states has been significantly worse over the past several days. Chest x-ray did not reveal any acutely concerning findings, laboratory studies reveal an elevated proBNP at 9,992, which is slightly worse than the patient's prior, patient also with a mildly elevated troponin, which again is consistent with the patient's underlying congestive heart failure, as opposed to an active occlusive process. Patient's presentation and history are consistent with CHF exacerbation. I did discuss findings as above with Dr. 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 Ross, she recommends admission to the hospital with initiation of IV Lasix, 80 mg, will continue to follow and titrate the patient's medications. I did discuss findings as above with the patient, who is agreeable this plan, and with Dr. Elder of internal medicine, patient accepted her service as a full admission to the cardiac telemetry floor, with serial enzymes, and cardiology consultation as stated, bridge orders entered as discussed. Dragon Disclaimer Dragon Disclaimer This electronic medical record was generated, in whole or in part, using a voice recognition dictation system. Departure Impression: Primary Impression: CHF exacerbation Additional Impression: Weakness Disposition: 09 ADMITTED INPATIENT Admitting Physician: Keerthi Elder Condition: IMPROVED Problem Qualifiers ROCIO HAILE DO Jul 07, 2017 12:20
[2017-07-07 12:22] LABS: BASO % 1 % (0-3); EOS % 1 % (0-3); HEMATOCRIT 34.7 % (36.0-47.0); HEMOGLOBIN 11.7 g/dL (12.0-15.5); LYMPH # 0.8 x10^3/uL (1.0-4.8); LYMPH % 16 % (24-48); MEAN CORPUSCULAR HEMOGLOBIN 36 pg (25-35); MEAN CORPUSCULAR HGB CONC 34 g/dL (31-37); MEAN CORPUSCULAR VOLUME 108 fL (79-100); MONO % 5 % (0-9); NEUT % 77 % (31-73); PLATELET COUNT 223 x10^3/uL (140-400); RED BLOOD COUNT 3.23 x10^6/uL (3.50-5.40); RED CELL DISTRIBUTION WIDTH 17.5 % (11.5-14.5); WHITE BLOOD COUNT 4.8 x10^3/uL (4.0-11.0)
[2017-07-07 12:26] LABS: CALCIUM 8.4 mg/dL (8.5-10.1); CREATININE 1.2 mg/dL (0.6-1.0); GFR 43.7; POTASSIUM 4.6 mmol/L (3.5-5.1)
[2017-07-07 12:27] LABS: INR 2.8 (0.8-1.1); PROTHROMBIN TIME PATIENT 27.4 SEC (11.7-14.0)
[2017-07-07 12:32] LABS: ALBUMIN 3.3 g/dL (3.4-5.0); ALBUMIN/GLOBULIN RATIO 0.9 (1.0-1.7); TOTAL BILIRUBIN 0.4 mg/dL (0.2-1.0); TOTAL PROTEIN 6.9 g/dL (6.4-8.2)
--- NOTE | 2017-07-07 12:34 | RAD ---
AP portable chest radiograph 07/07/2017 Clinical History: Shortness of breath since earlier today. An AP portable erect digital radiograph of the chest was obtained. Comparison study is dated 06/24/2017. A pacemaker is unchanged in position. Surgical clips overlie the left upper quadrant of the abdomen. The cardiac silhouette is mildly enlarged. Atherosclerotic calcification of the thoracic aorta is seen. The thoracic aorta is tortuous. Mild elevation of the left hemidiaphragm is again noted. Surgical clips overlie the left hilum, unchanged. No acute pulmonary infiltrate is seen. No pleural effusion or pneumothorax is noted. The osseous structures are unchanged. Impression: No acute abnormality is seen.
[2017-07-07] MEDS ORDERED: FUROSEMIDE 40 MG/4 ML VIAL. IVP ONE (13:15)
[2017-07-07] MEDS ORDERED: ONDANSETRON PF 4 MG/2 ML VIAL. IV PRN (13:30)
[2017-07-07] MEDS ORDERED: fentaNYL PF VIAL 100 MCG/2 ML VIAL IV PRN (13:30)
[2017-07-07 14:23] VITALS: BP 115/69
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
[2017-07-07 15:00] VITALS: BP 115/69
[2017-07-07] MEDS ORDERED: guaiFENesin DM 600/30MG 1 TAB TAB.ER.12H PO PRN (15:30)
[2017-07-07] MEDS ORDERED: FUROSEMIDE 40 MG TABLET. PO SCH (16:00)
[2017-07-07] MEDS ORDERED: SPIRONOLACTONE 25 MG TABLET PO SCH (16:00)
[2017-07-07] MEDS: WARFARIN 6 MG TABLET. PO SCH (16:00)
[2017-07-07] MEDS: PARoxetine 20 MG TABLET PO SCH (16:00)
[2017-07-07] MEDS: ALLOPURINOL 100 MG TABLET. PO SCH (16:00)
[2017-07-07] MEDS: CALCIUM CARB/VIT D3 500/200 TABLET. PO SCH (16:11)
[2017-07-07] MEDS: traMADol 50 MG TABLET PO PRN (16:12)
[2017-07-07] MEDS: ALPRAZolam 0.25 MG TABLET PO PRN ×2 (16:12→20:16)
[2017-07-07] MEDS: POTASSIUM CHLORIDE 20 MEQ TABLET.ER. PO SCH (16:13)
--- NOTE | 2017-07-07 17:03 | PDOC1 ---
History and Physical Date of Admission Date of Admission DATE: 07/07/17 TIME: 16:57 Identification/Chief Complaint Chief Complaint swelling all over Problems: Source Source: Caregiver, Chart review, Patient History of Present Illness History of Present Illness Pleasant 76 y.o female who lives at home, Follows with Dr Ross and Gualberto Graham for her CHF and CKD stage 3, was just here 5 days ago for similar issues, managed by my colleagues. COmes in bec of leg swelling ,edema, claims she was cut down on her alsix the last admit, She is used to taking 2 80 mg lasix BID and 2 25 mg adlactone at home, She got lasix 80 IV at ER with good UO and legs have signif gone down in size per her acct, NO more soa, no JVD no ascites, watching tv. Creat 1,.2, and I was asked to fax over her BMP to Gualberto Graham;s office since she was due BMp asif And we did fax it today saturday. CXR read as normal, BNP chroncally elevated, K ok. Trop 0.059 denies CP Past Medical History Cardiovascular: AFIB, CHF, Hyperlipidemia CENTRAL NERVOUS SYSTEM: TIA GI: GERD Heme/Onc: Anemia NOS, Cancer Psych: Anxiety, Depression Musculoskeletal: Osteoarthritis, Stiffness Rheumatologic: Gout, Rheumatoid arthritis Endocrine: Hypothyroidism Past Surgical History Past Surgical History: Pacemaker, Cholecystectomy, Other Family History Family History: Cancer Social History Smoke: No ALCOHOL: none Drugs: None Current Medications Current Medications Current Medications Furosemide (Lasix) 80 mg 1X ONCE IVP Last administered on 07/07/17 13:19; Start 07/07/17 at 13:15; Stop 07/07/17 at 13:16; Status DC Ondansetron HCl (Zofran) 4 mg PRN Q8HRS PRN IV NAUSEA/VOMITING; Start 07/07/17 at 13:30; Stop 07/08/17 at 13:29 Fentanyl Citrate (Fentanyl 2ml Vial) 50 mcg PRN Q1HR PRN IV PAIN; Start at 13:30; Stop 07/08/17 at 13:29 Allopurinol (Zyloprim) 100 mg DAILY PO ; Start 07/07/17 at 16:00 Alprazolam (Xanax) 0.25 mg PRN BID PRN PO ANXIETY / AGITATION Last administered on 07/07/17 16:12; Start 07/07/17 at 15:30 Furosemide (Lasix) 40 mg DAILY PO ; Start 07/07/17 at 16:00; Stop 07/07/17 at 16 :46; Status DC Guaifenesin (MUCINEX ER with DM) 1 tab PRN Q12HRS PRN PO COUGH; Start 07/07/17 at 15:30 Levothyroxine Sodium (Synthroid) 100 mcg DAILY06 PO ; Start 07/08/17 at 06:00 Methotrexate (Rheumatrex) 17.5 mg We PO ; Start 07/10/17 at 09:00 Potassium Chloride (Klor-Con) 20 meq BIDWMEALS PO Last administered on 16:13; Start 07/07/17 at 17:00 Propafenone HCl (Rythmol) 150 mg BID PO ; Start 07/07/17 at 21:00 Spironolactone (Aldactone) 25 mg DAILY PO Last administered on 07/07/17 16:12 ; Start 07/07/17 at 16:00 Tramadol HCl (Ultram) 50 mg PRN Q6HRS PRN PO PAIN Last administered on 16:12; Start 07/07/17 at 15:30 Trazodone HCl (Desyrel) 25 mg HS PO ; Start 07/07/17 at 21:00 Warfarin Sodium (Coumadin) 6 mg DAILY16 PO ; Start 07/07/17 at 16:00 Non-Formulary Medication 1,000 mg BID PO ; Start 07/07/17 at 21:00; Status UNV Calcium/Vitamin D (Oscal D 500mg/ 200uts) 1 tab BIDWMEALS PO ; Start 07/07/17 at 17:00 Cetirizine HCl (ZyrTEC) 10 mg PRN DAILY PRN PO ALLERGIE; Start 07/08/17 at 09: 00 Fish Oil (Fish Oil) 1,000 mg DAILY PO ; Start 07/08/17 at 09:00 Pantoprazole Sodium (Protonix) 40 mg DAILYAC PO ; Start 07/08/17 at 07:30 Paroxetine HCl (Paxil) 20 mg DAILY PO ; Start 07/07/17 at 16:00 Artificial Tears (Artificial Tears) 1 drop DAILY OU ; Start 07/08/17 at 09:00 Hydroxychloroquine Sulfate (Plaquenil) 200 mg DAILY08 PO ; Start 07/08/17 at 08: 00 Ferrous Sulfate (Feosol) 325 mg DAILYWBKFT PO ; Start 07/08/17 at 08:00 Warfarin Sodium (Coumadin Per Physician) 1 each PRN DAILY PRN MC SEE COMMENTS; Start 07/07/17 at 15:45 Furosemide (Lasix) 80 mg BID92 PO ; Start 07/08/17 at 09:00 Active Scripts Active Lasix (Furosemide) 40 Mg Tablet 1 Tab PO DAILY Aldactone (Spironolactone) 25 Mg Tablet 1 Tab PO DAILY Klor-Con M20 (Potassium Chloride) 20 Meq Tab.er.prt 20 Meq PO BIDWMEALS Reported Methotrexate (Methotrexate Sodium) 2.5 Mg Tablet 7 Tab PO SATURDAY [hydroxyl-chloroquine] 200 Mg PO DAILY08 Calcium + Vitamin D Tablet (Calcium Carbonate/Vitamin D3) 1 Each Tablet 1 Each PO BID Claritin (Loratadine) 10 Mg Tablet 1 Tab PO DAILY PRN Coumadin (Warfarin Sodium) 6 Mg Tablet 6 Mg PO ,,,, Acetaminophen 500 Mg Tablet 1 Tab PO PRN Q6HRS PRN Mucinex Dm Er 600-30 Mg Tablet (Guaifenesin/Dextromethorphan) 1 Each Tab.er.12h 1 Tab PO PRN Q12HRS Trazodone Hcl 50 Mg Tablet 25 Mg PO HS Propafenone Hcl 150 Mg Tablet 150 Mg PO BID Systane 0.3-0.4% Eye Drops (Propylene Glycol/Peg 400/Pf) 1 Each Droperette 1 Each OP DAILY Xanax (Alprazolam) 0.25 Mg Tablet 1 Tab PO PRN BID PRN Biotin 1 Mg Capsule 1,000 Mg PO BID [lutein] 1 Tab BID [Iron ] 1 Tab DAILY Omeprazole 40 Mg Capsule.dr 40 Mg PO DAILY Tramadol Hcl 50 Mg Tablet 50 Mg PO PRN Q6HRS PRN Fish Oil 1,000 Mg Softgel (Butler-3 Fatty Acids/Fish Oil) 1 Each Capsule 1 Each PO DAILY Allopurinol 100 Mg Tablet 100 Mg PO DAILY Paxil (Paroxetine Hcl) 40 Mg Tablet 20 Mg PO DAILY Levothyroxine Sodium 100 Mcg Tablet 100 Mcg PO DAILY Allergies Allergies: Coded Allergies: adhesive (Verified Allergy, Intermediate, "Breaks out", 04/02/16) Pt states, "tape and band-aids." albuterol (Verified Allergy, Intermediate, "CAN'T BREATHE", 04/02/16) codeine (Verified Allergy, Intermediate, "Breaks out.", 04/02/16) oxycodone (Verified Allergy, Intermediate, Rash, 04/02/16) duloxetine (Verified Adverse Reaction, Intermediate, edema, 04/02/16) pregabalin (Verified Adverse Reaction, Intermediate, edema, 04/02/16) ROS Review of System as per HPI,a ll else neg 14 pt reviewed Physical Exam General: Alert, Oriented X3, Cooperative, No acute distress HEENT: Atraumatic, PERRLA Lungs: Normal air movement, Other (dec BS, no wheezes) Heart: S1S2, RRR, no thrills, no rubs, no gallops, no murmurs Cardiovascular: S1, S2 Breasts: Normal Abdomen: Normal bowel sounds, Soft, No tenderness, No hepatosplenomegaly, No masses Rectal Exam: not examined PELVIC: Nml ext genitalia Extremities: No cyanosis, Other (plus 2 pitting edema, not tight) Vitals Vitals Vital Signs Date Time Temp Pulse Resp B/P (MAP) Pulse Ox O2 Delivery O2 Flow Rate FiO2 07/07/17 16:12 18 100 Room Air 07/07/17 15:00 97.5 84 115/69 (84) 97.5 Labs Labs Laboratory Tests Test 07/07/17 11:50 07/07/17 12:05 Urine Color Yellow Urine Clarity Clear Urine pH 6.0 Urine Specific [place] <=1.005 Urine Protein Negative mg/dL (NEG-TRACE) Urine Glucose (UA) Negative mg/dL (NEG) Urine Ketones (Stick) Negative mg/dL (NEG) Urine Blood Negative (NEG) Urine Nitrite Negative (NEG) Urine Bilirubin Negative (NEG) Urine Urobilinogen Dipstick 0.2 mg/dL (0.2 mg/dL) Urine Leukocyte Esterase Negative (NEG) Urine RBC 0 /HPF (0-2) Urine WBC 0 /HPF (0-4) Urine Squamous Epithelial Cells Occ /LPF Urine Bacteria Few /HPF (0-FEW) Urine Hyaline Casts Few /HPF White Blood Count 4.8 x10^3/uL (4.0-11.0) Red Blood Count 3.23 x10^6/uL (3.50-5.40) Hemoglobin 11.7 g/dL (12.0-15.5) Hematocrit 34.7 % (36.0-47.0) Mean Corpuscular Volume 108 fL (79-100) Mean Corpuscular Hemoglobin 36 pg (25-35) Mean Corpuscular Hemoglobin Concent 34 g/dL (31-37) Red Cell Distribution Width 17.5 % (11.5-14.5) Platelet Count 223 x10^3/uL (140-400) Neutrophils (%) (Auto) 77 % (31-73) Lymphocytes (%) (Auto) 16 % (24-48) Monocytes (%) (Auto) 5 % (0-9) Eosinophils (%) (Auto) 1 % (0-3) Basophils (%) (Auto) 1 % (0-3) Neutrophils # (Auto) 3.7 x10^3uL (1.8-7.7) Lymphocytes # (Auto) 0.8 x10^3/uL (1.0-4.8) Monocytes # (Auto) 0.3 x10^3/uL (0.0-1.1) Eosinophils # (Auto) 0.0 x10^3/uL (0.0-0.7) Basophils # (Auto) 0.0 x10^3/uL (0.0-0.2) Prothrombin Time 27.4 SEC (11.7-14.0) Prothromb Time International Ratio 2.8 (0.8-1.1) Activated Partial Thromboplast Time 33 SEC (24-38) Sodium Level 137 mmol/L (136-145) Potassium Level 4.6 mmol/L (3.5-5.1) Chloride Level 103 mmol/L (98-107) Carbon Dioxide Level 25 mmol/L (21-32) Anion Gap 9 (6-14) Blood Urea Nitrogen 33 mg/dL (7-20) Creatinine 1.2 mg/dL (0.6-1.0) Estimated GFR (Cockcroft-Gault) 43.7 BUN/Creatinine Ratio 28 (6-20) Glucose Level 85 mg/dL (70-99) Calcium Level 8.4 mg/dL (8.5-10.1) Total Bilirubin 0.4 mg/dL (0.2-1.0) Aspartate Amino Transf (AST/SGOT) 255 U/L (15-37) Alanine Aminotransferase (ALT/SGPT) 446 U/L (14-59) Alkaline Phosphatase 127 U/L (46-116) Troponin I Quantitative 0.059 ng/mL (0.000-0.055) WH-Yhe-A-Type Natriuretic Peptide 9992 pg/mL (0-449) Total Protein 6.9 g/dL (6.4-8.2) Albumin 3.3 g/dL (3.4-5.0) Albumin/Globulin Ratio 0.9 (1.0-1.7) Laboratory Tests Test 07/07/17 11:50 07/07/17 12:05 Urine Color Yellow Urine Clarity Clear Urine pH 6.0 Urine Specific [place] <=1.005 Urine Protein Negative mg/dL (NEG-TRACE) Urine Glucose (UA) Negative mg/dL (NEG) Urine Ketones (Stick) Negative mg/dL (NEG) Urine Blood Negative (NEG) Urine Nitrite Negative (NEG) Urine Bilirubin Negative (NEG) Urine Urobilinogen Dipstick 0.2 mg/dL (0.2 mg/dL) Urine Leukocyte Esterase Negative (NEG) Urine RBC 0 /HPF (0-2) Urine WBC 0 /HPF (0-4) Urine Squamous Epithelial Cells Occ /LPF Urine Bacteria Few /HPF (0-FEW) Urine Hyaline Casts Few /HPF White Blood Count 4.8 x10^3/uL (4.0-11.0) Red Blood Count 3.23 x10^6/uL (3.50-5.40) Hemoglobin 11.7 g/dL (12.0-15.5) Hematocrit 34.7 % (36.0-47.0) Mean Corpuscular Volume 108 fL (79-100) Mean Corpuscular Hemoglobin 36 pg (25-35) Mean Corpuscular Hemoglobin Concent 34 g/dL (31-37) Red Cell Distribution Width 17.5 % (11.5-14.5) Platelet Count 223 x10^3/uL (140-400) Neutrophils (%) (Auto) 77 % (31-73) Lymphocytes (%) (Auto) 16 % (24-48) Monocytes (%) (Auto) 5 % (0-9) Eosinophils (%) (Auto) 1 % (0-3) Basophils (%) (Auto) 1 % (0-3) Neutrophils # (Auto) 3.7 x10^3uL (1.8-7.7) Lymphocytes # (Auto) 0.8 x10^3/uL (1.0-4.8) Monocytes # (Auto) 0.3 x10^3/uL (0.0-1.1) Eosinophils # (Auto) 0.0 x10^3/uL (0.0-0.7) Basophils # (Auto) 0.0 x10^3/uL (0.0-0.2) Prothrombin Time 27.4 SEC (11.7-14.0) Prothromb Time International Ratio 2.8 (0.8-1.1) Activated Partial Thromboplast Time 33 SEC (24-38) Sodium Level 137 mmol/L (136-145) Potassium Level 4.6 mmol/L (3.5-5.1) Chloride Level 103 mmol/L (98-107) Carbon Dioxide Level 25 mmol/L (21-32) Anion Gap 9 (6-14) Blood Urea Nitrogen 33 mg/dL (7-20) Creatinine 1.2 mg/dL (0.6-1.0) Estimated GFR (Cockcroft-Gault) 43.7 BUN/Creatinine Ratio 28 (6-20) Glucose Level 85 mg/dL (70-99) Calcium Level 8.4 mg/dL (8.5-10.1) Total Bilirubin 0.4 mg/dL (0.2-1.0) Aspartate Amino Transf (AST/SGOT) 255 U/L (15-37) Alanine Aminotransferase (ALT/SGPT) 446 U/L (14-59) Alkaline Phosphatase 127 U/L (46-116) Troponin I Quantitative 0.059 ng/mL (0.000-0.055) MS-Zlh-F-Type Natriuretic Peptide 9992 pg/mL (0-449) Total Protein 6.9 g/dL (6.4-8.2) Albumin 3.3 g/dL (3.4-5.0) Albumin/Globulin Ratio 0.9 (1.0-1.7) VTE Prophylaxis Ordered VTE Prophylaxis Devices: Yes VTE Pharmacological Prophylaxi: Yes Assessment/Plan Assessment/Plan 1. CHF 2. LEg edema, acute on chronic 3. HTN controlled 4. CKD stage 3 5. Dyslipidemia, GERD, Depression NOS,RA - all chronic stable PLAn: admit CVC Resume home regimen Lasix BMP again asif OT lymphedema PT.OT reusme home meds MOnitor credidi and Davis Dw pt and RN PAMELA GORDON MD Jul 07, 2017 17:03
[2017-07-07 19:39] VITALS: BP 100/58
[2017-07-07] MEDS: PROPAFENONE 150 MG TABLET. PO SCH (20:14)
[2017-07-07] MEDS: traZODone 50 MG TABLET. PO SCH (20:16)
[2017-07-07] MEDS ORDERED: BIOTIN 1000 MG PO SCH (21:00)
[2017-07-07 23:22] VITALS: BP 89/56
--- NOTE | 2017-07-08 00:29 | CONS ---
DATE OF CONSULTATION: Covering for Dr. Ross. HISTORY OF PRESENT ILLNESS: This is a 76-year-old white female. She was just discharged on July 01 a week ago. At that time, she had come in with hyperkalemia with a potassium of 6.5. She had a BUN of 99 and a creatinine of 1.8. The potassium was corrected. In fact, it came down to 2.7. At the time of discharge on the 01 of July, the potassium was 3.9. The BUN was 26 and the creatinine was 1. She was sent home on Lasix 40 mg a day. She feels that was a very low dose. Prior to that, she had been taking Lasix 80 mg twice a day and spironolactone 25 mg twice a day. Since going home, she said that she started to swell and started shortness of breath. She talked to Dr. Ross who increase her Lasix to 80 mg once a day. She talked to a nurse this morning. The nurse went and saw her. She informed her that she is still very short of breath. Her feet were markedly swollen even on 80 mg once a day. She wanted to go on 80 mg twice a day. I was called and I informed them that it would be best that she goes to the Emergency Room since I did not know her from before. When she was hospitalized last month her echocardiogram showed a systolic dysfunction and an ejection fraction of 40%. She also had a significant diastolic dysfunction. The E prime velocity over the medial wall was 4 and the E over E prime ratio was significantly elevated to 26. The E prime velocity on the lateral wall was also somewhat low at 7 and the E over E prime ratio was elevated to 16. She does have a combined systolic and diastolic dysfunction. In addition to that, she has moderate aortic regurgitation and a mild mitral regurgitation, thus not enabling the left ventricle to accommodate the two regurgitant valves with its diastolic dysfunction. She does not smoke or take alcohol. She has several other medical conditions. The following are her medications. MEDICATIONS: 1. Allopurinol 100 mg a day. 2. Alprazolam 0.25 mg twice a day p.r.n. 3. Biotin 1000 mcg twice a day. 4. Calcium carbonate with vitamin D. 5. Lasix 80 mg a day. 6. Synthroid 100 mcg a day. 7. Claritin once a day. 8. Methotrexate 2.5 mg 7 tablets once a week. 9. [place] 3 fatty acid. 10. Omeprazole 40 mg a day. 11. Paxil 20 mg a day. 12. Potassium chloride 20 mEq a day. 13. Propafenone 150 mg twice a day. 14. Spironolactone 25 mg a day. 15. Tramadol. 16. Trazodone 25 mg ____at night. 17. Warfarin 6 mg a day. PHYSICAL EXAMINATION: GENERAL: She was in no distress. She was not short of breath. In fact, she was able to lie down flat. VITAL SIGNS: The heart rate was 100 per minute. The blood pressure was 100/70. LUNGS: Clear. HEART: The heart sounds are normal with no murmur or gallop. ABDOMEN: Soft. There is no right upper quadrant tenderness. EXTREMITIES: There is 1+ edema of the legs. An EKG showed a sinus tachycardia. She has a permanent pacemaker and it was A sensed and V paced rhythm. The QRS complex was fairly wide. A chest x-ray showed cardiomegaly. There was a mild increase in vascularity. LABORATORY INVESTIGATIONS: The hemoglobin was 11.7. The sodium was 137, potassium was 4.6, BUN was 33, creatinine was 1.2. The troponin was mildly elevated consistent with CHF. [place] 9992. This time, her INR was normal at 2.8. When she came in, previously it was elevated. IMPRESSION: 1. 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 2. Chronic kidney disease stage 2. 3. Moderate aortic regurgitation. 4. Mild mitral regurgitation. The patient felt she did very well with the higher dose of Lasix. She would like to have a try of that and watch her renal functions more closely. She definitely feels that the lower dose of Lasix is not helping her and she is short of breath and has swelling of the legs. Dr. Ross returns tomorrow and he will address that issue. She has a very wide QRS complex, but with an EF of 40% she does not qualify for a Bi-V pacemaker. Thank you very much for asking us to see her. DAYA POTTER MD DR: KRYSTLE/yo JOB#: [id number] / [id number]
--- NOTE | 2017-07-08 01:25 | ACF ---
Admission Forms Criteria HEART FAILURE: COMMON COMPLICATIONS (Place 'X' for any and all applicable criteria): Ongoing inpatient care may be indicated for heart failure with 1 or more of the following (1)(2)(3)(4)(5)(6)(7)(8): [ ]I. New-onset heart failure [ ]II. Acute cardiac ischemia causing or associated with failure [ ]III. Ongoing need for care for primary condition requiring frequent therapy adjustments because of changes in cardiac function (eg, drug dosage changes for drugs that are renally metabolized) [X ]IV. Complications of heart failure, including 1 or more of the following: [ ]a) Hemodynamic instability [ ]b) Pericardial effusion [ ]c) Symptomatic pleural effusion [ ]d) Hypoxemia [ ]e) Tachypnea [ X]f) Dyspnea [ ]g) Syncope [ ]h) Altered mental status [ ]i) Acute renal insufficiency that is severe (reduction of more than 50% in estimated glomerular filtration rate from baseline) or progressive reduction of more than 25% in estimated glomerular filtration rate from baseline, with creatinine continuing to rise) [ ]j) Debilitating anasarca (eg tissue breakdown with infection, inability to void due to edema) (E) [ ]k) Clinically significant metabolic abnormalities due to heart failure (eg, new-onset metabolic acidosis) Extended stay may be needed until ALL of the following are present (1)(3)(18)(41 )(55) [ ]a) Hemodynamic stability [ ]b) Stable and effective diuretic regimen established (or patient on stable dialysis regimen if in chronic renal failure) [ ]c) Volume status acceptable on oral medication [ ]d) Breathing comfortably at rest [ ]e) Saturation of arterial oxygen greater than 90% or at acceptable baseline [ ]f) Pulmonary edema absent or improved [ ]g) Peripheral or sacral edema absent or improved [ ]h) Renal function stable and manageable at a lower level of care [ ]i) Complications (eg, pleural effusion) resolved or manageable at a lower level of care [ ]g) Patient or caregiver has received written discharge instructions or educational material addressing activity level, diet, discharge medications, follow-up appointment, weight monitoring, and what to do if symptoms worsen.(25)(26) The original [facility] [email or web address] content created by [employer] has been revised. The portions of the content which have been revised are identified through the use of italic text, and [facility] has neither reviewed nor approved the modified material.All other unmodified content is copyright [facility]. Please see references footnoted in the original [facility] edition 2015 Admission Criteria Met?: Yes ELVIA BERNAL Jul 08, 2017 01:25
[2017-07-08 02:29] VITALS: BP 99/58
[2017-07-08] MEDS: LEVOTHYROXINE 100 MCG TABLET PO SCH (05:21)
[2017-07-08] MEDS: traMADol 50 MG TABLET PO PRN ×3 (05:24→21:46)
[2017-07-08] MEDS: ALPRAZolam 0.25 MG TABLET PO PRN ×2 (06:11→17:43)
[2017-07-08 07:00] VITALS: BP 106/60
[2017-07-08 07:44] LABS: BASO % 1 % (0-3); EOS % 1 % (0-3); HEMATOCRIT 29.4 % (36.0-47.0); HEMOGLOBIN 9.9 g/dL (12.0-15.5); LYMPH % 21 % (24-48); MEAN CORPUSCULAR HEMOGLOBIN 37 pg (25-35); MEAN CORPUSCULAR HGB CONC 34 g/dL (31-37); MEAN CORPUSCULAR VOLUME 108 fL (79-100); MONO % 7 % (0-9); NEUT % 69 % (31-73); PLATELET COUNT 196 x10^3/uL (140-400); RED BLOOD COUNT 2.72 x10^6/uL (3.50-5.40); RED CELL DISTRIBUTION WIDTH 17.4 % (11.5-14.5); WHITE BLOOD COUNT 4.5 x10^3/uL (4.0-11.0)
[2017-07-08 07:54] LABS: INR 2.4 (0.8-1.1); PROTHROMBIN TIME PATIENT 24.8 SEC (11.7-14.0)
[2017-07-08 07:59] LABS: CALCIUM 7.8 mg/dL (8.5-10.1); CREATININE 1.1 mg/dL (0.6-1.0); GFR 48.3; POTASSIUM 3.6 mmol/L (3.5-5.1)
[2017-07-08] MEDS: OMEGA-3 FATTY ACIDS/FISH OIL 1,000 MG CAPSULE. PO SCH (08:58)
[2017-07-08] MEDS: CALCIUM CARB/VIT D3 500/200 TABLET. PO SCH ×2 (08:59→17:43)
[2017-07-08] MEDS: HYDROXYCHLOROQUINE 200 MG TABLET PO SCH (08:59)
[2017-07-08] MEDS: ALLOPURINOL 100 MG TABLET. PO SCH (08:59)
[2017-07-08] MEDS: PARoxetine 20 MG TABLET PO SCH (08:59)
[2017-07-08] MEDS: POTASSIUM CHLORIDE 20 MEQ TABLET.ER. PO SCH ×4 (08:59→21:46)
[2017-07-08] MEDS: FUROSEMIDE 80 MG TABLET. PO SCH ×2 (08:59→15:33)
[2017-07-08] MEDS: FERROUS SULFATE 325 MG TABLET. PO SCH (09:00)
[2017-07-08] MEDS: PROPAFENONE 150 MG TABLET. PO SCH ×2 (09:00→21:46)
[2017-07-08] MEDS: PANTOPRAZOLE 40 MG TABLET.DR. PO SCH (09:00)
[2017-07-08] MEDS: POLYVINYL ALCOHOL 1.4% OPHTH SOLUTION 15ML BOTTLE. OU SCH (09:00)
[2017-07-08] MEDS ORDERED: CETIRIZINE HCL 10 MG TABLET. PO PRN (09:00)
[2017-07-08] MEDS: SPIRONOLACTONE 25 MG TABLET PO SCH (09:00)
--- NOTE | 2017-07-08 09:09 | PDOC2 ---
CONSULT Date of Consult Date of Consult DATE: 07/08/17 TIME: 08:55 Reason for Consult Reason for Consult: Edema, SOA, and CHF Identification/Chief Complaint Chief Complaint Edema and SOA Problems: History of Present Illness Reason for Visit: Pt came in with complaints of swelling all over and difficulty breathing. Pt was taken off her lasix a week ago when she was in the hospital. In ER pt was given 80mg lasix which significantly decreased pt's swelling in legs and arms and ease of breathing has significantly improved. Past Medical History Cardiovascular: AFIB, CHF, Hyperlipidemia CENTRAL NERVOUS SYSTEM: TIA GI: GERD Heme/Onc: Anemia NOS, Cancer Psych: Anxiety, Depression Musculoskeletal: Osteoarthritis, Stiffness Rheumatologic: Gout, Rheumatoid arthritis Endocrine: Hypothyroidism Past Surgical History Past Surgical History: Pacemaker, Cholecystectomy, Other Family History Family History: Cancer Social History No ALCOHOL: none Drugs: None Current Medications Current Medications Current Medications Furosemide (Lasix) 80 mg 1X ONCE IVP Last administered on 07/07/17 13:19; Start 07/07/17 at 13:15; Stop 07/07/17 at 13:16; Status DC Ondansetron HCl (Zofran) 4 mg PRN Q8HRS PRN IV NAUSEA/VOMITING; Start 07/07/17 at 13:30; Stop 07/08/17 at 13:29 Fentanyl Citrate (Fentanyl 2ml Vial) 50 mcg PRN Q1HR PRN IV PAIN; Start at 13:30; Stop 07/08/17 at 13:29 Allopurinol (Zyloprim) 100 mg DAILY PO ; Start 07/07/17 at 16:00 Alprazolam (Xanax) 0.25 mg PRN BID PRN PO ANXIETY / AGITATION Last administered on 07/08/17 06:11; Start 07/07/17 at 15:30 Furosemide (Lasix) 40 mg DAILY PO ; Start 07/07/17 at 16:00; Stop 07/07/17 at 16 :46; Status DC Guaifenesin (MUCINEX ER with DM) 1 tab PRN Q12HRS PRN PO COUGH; Start 07/07/17 at 15:30 Levothyroxine Sodium (Synthroid) 100 mcg DAILY06 PO Last administered on 05:21; Start 07/08/17 at 06:00 Methotrexate (Rheumatrex) 17.5 mg We PO ; Start 07/10/17 at 09:00 Potassium Chloride (Klor-Con) 20 meq BIDWMEALS PO Last administered on 16:13; Start 07/07/17 at 17:00 Propafenone HCl (Rythmol) 150 mg BID PO Last administered on 07/07/17 20:14; Start 07/07/17 at 21:00 Spironolactone (Aldactone) 25 mg DAILY PO Last administered on 07/07/17 16:12 ; Start 07/07/17 at 16:00; Stop 07/07/17 at 16:58; Status DC Tramadol HCl (Ultram) 50 mg PRN Q6HRS PRN PO PAIN Last administered on 05:24; Start 07/07/17 at 15:30 Trazodone HCl (Desyrel) 25 mg HS PO Last administered on 07/07/17 20:16; Start 07/07/17 at 21:00 Warfarin Sodium (Coumadin) 6 mg DAILY16 PO Last administered on 07/07/17 16:00 ; Start 07/07/17 at 16:00 Non-Formulary Medication 1,000 mg BID PO ; Start 07/07/17 at 21:00; Status UNV Calcium/Vitamin D (Oscal D 500mg/ 200uts) 1 tab BIDWMEALS PO ; Start 07/07/17 at 17:00 Cetirizine HCl (ZyrTEC) 10 mg PRN DAILY PRN PO ALLERGIE; Start 07/08/17 at 09: 00 Fish Oil (Fish Oil) 1,000 mg DAILY PO ; Start 07/08/17 at 09:00 Pantoprazole Sodium (Protonix) 40 mg DAILYAC PO ; Start 07/08/17 at 07:30 Paroxetine HCl (Paxil) 20 mg DAILY PO ; Start 07/07/17 at 16:00 Artificial Tears (Artificial Tears) 1 drop DAILY OU ; Start 07/08/17 at 09:00 Hydroxychloroquine Sulfate (Plaquenil) 200 mg DAILY08 PO ; Start 07/08/17 at 08: 00 Ferrous Sulfate (Feosol) 325 mg DAILYWBKFT PO ; Start 07/08/17 at 08:00 Warfarin Sodium (Coumadin Per Physician) 1 each PRN DAILY PRN MC SEE COMMENTS; Start 07/07/17 at 15:45 Furosemide (Lasix) 80 mg BID92 PO ; Start 07/08/17 at 09:00 Spironolactone (Aldactone) 50 mg DAILY PO ; Start 07/08/17 at 09:00 Active Scripts Active Lasix (Furosemide) 40 Mg Tablet 1 Tab PO DAILY Aldactone (Spironolactone) 25 Mg Tablet 1 Tab PO DAILY Klor-Con M20 (Potassium Chloride) 20 Meq Tab.er.prt 20 Meq PO BIDWMEALS Reported Methotrexate (Methotrexate Sodium) 2.5 Mg Tablet 7 Tab PO SATURDAY [hydroxyl-chloroquine] 200 Mg PO DAILY08 Calcium + Vitamin D Tablet (Calcium Carbonate/Vitamin D3) 1 Each Tablet 1 Each PO BID Claritin (Loratadine) 10 Mg Tablet 1 Tab PO DAILY PRN Coumadin (Warfarin Sodium) 6 Mg Tablet 6 Mg PO ,,,, Acetaminophen 500 Mg Tablet 1 Tab PO PRN Q6HRS PRN Mucinex Dm Er 600-30 Mg Tablet (Guaifenesin/Dextromethorphan) 1 Each Tab.er.12h 1 Tab PO PRN Q12HRS Trazodone Hcl 50 Mg Tablet 25 Mg PO HS Propafenone Hcl 150 Mg Tablet 150 Mg PO BID Systane 0.3-0.4% Eye Drops (Propylene Glycol/Peg 400/Pf) 1 Each Droperette 1 Each OP DAILY Xanax (Alprazolam) 0.25 Mg Tablet 1 Tab PO PRN BID PRN Biotin 1 Mg Capsule 1,000 Mg PO BID [lutein] 1 Tab BID [Iron ] 1 Tab DAILY Omeprazole 40 Mg Capsule.dr 40 Mg PO DAILY Tramadol Hcl 50 Mg Tablet 50 Mg PO PRN Q6HRS PRN Fish Oil 1,000 Mg Softgel ([place]-3 Fatty Acids/Fish Oil) 1 Each Capsule 1 Each PO DAILY Allopurinol 100 Mg Tablet 100 Mg PO DAILY Paxil (Paroxetine Hcl) 40 Mg Tablet 20 Mg PO DAILY Levothyroxine Sodium 100 Mcg Tablet 100 Mcg PO DAILY Allergies Allergies: Coded Allergies: adhesive (Verified Allergy, Intermediate, "Breaks out", 04/02/16) Pt states, "tape and band-aids." albuterol (Verified Allergy, Intermediate, "CAN'T BREATHE", 04/02/16) codeine (Verified Allergy, Intermediate, "Breaks out.", 04/02/16) oxycodone (Verified Allergy, Intermediate, Rash, 04/02/16) duloxetine (Verified Adverse Reaction, Intermediate, edema, 04/02/16) pregabalin (Verified Adverse Reaction, Intermediate, edema, 04/02/16) Physical Exam Physical Exam Gen: Pt is sitting comfortably in her chair eating breakfast. Pt is pleasant, cooperative and conversational. Neck: no JVD Card: harsh systolic murmur auscultated; Resp: CTAB no rales, rhonchi, wheezes Extremities: Edema still present in arms and legs but much improved from pt's admission. Neuro: awake, alert and oriented. Vitals VITALS Vital Signs Date Time Temp Pulse Resp B/P (MAP) Pulse Ox O2 Delivery O2 Flow Rate FiO2 07/08/17 07:00 98.2 85 16 106/60 (75) 99 98.2 07/08/17 06:24 Room Air Labs Labs Laboratory Tests Test 07/07/17 11:50 07/07/17 12:05 07/07/17 17:32 07/08/17 00:15 Urine Color Yellow Urine Clarity Clear Urine pH 6.0 Urine Specific [place] <=1.005 Urine Protein Negative mg/dL (NEG-TRACE) Urine Glucose (UA) Negative mg/dL (NEG) Urine Ketones (Stick) Negative mg/dL (NEG) Urine Blood Negative (NEG) Urine Nitrite Negative (NEG) Urine Bilirubin Negative (NEG) Urine Urobilinogen Dipstick 0.2 mg/dL (0.2 mg/dL) Urine Leukocyte Esterase Negative (NEG) Urine RBC 0 /HPF (0-2) Urine WBC 0 /HPF (0-4) Urine Squamous Epithelial Cells Occ /LPF Urine Bacteria Few /HPF (0-FEW) Urine Hyaline Casts Few /HPF White Blood Count 4.8 x10^3/uL (4.0-11.0) Red Blood Count 3.23 x10^6/uL (3.50-5.40) Hemoglobin 11.7 g/dL (12.0-15.5) Hematocrit 34.7 % (36.0-47.0) Mean Corpuscular Volume 108 fL (79-100) Mean Corpuscular Hemoglobin 36 pg (25-35) Mean Corpuscular Hemoglobin Concent 34 g/dL (31-37) Red Cell Distribution Width 17.5 % (11.5-14.5) Platelet Count 223 x10^3/uL (140-400) Neutrophils (%) (Auto) 77 % (31-73) Lymphocytes (%) (Auto) 16 % (24-48) Monocytes (%) (Auto) 5 % (0-9) Eosinophils (%) (Auto) 1 % (0-3) Basophils (%) (Auto) 1 % (0-3) Neutrophils # (Auto) 3.7 x10^3uL (1.8-7.7) Lymphocytes # (Auto) 0.8 x10^3/uL (1.0-4.8) Monocytes # (Auto) 0.3 x10^3/uL (0.0-1.1) Eosinophils # (Auto) 0.0 x10^3/uL (0.0-0.7) Basophils # (Auto) 0.0 x10^3/uL (0.0-0.2) Prothrombin Time 27.4 SEC (11.7-14.0) Prothromb Time International Ratio 2.8 (0.8-1.1) Activated Partial Thromboplast Time 33 SEC (24-38) Sodium Level 137 mmol/L (136-145) Potassium Level 4.6 mmol/L (3.5-5.1) Chloride Level 103 mmol/L (98-107) Carbon Dioxide Level 25 mmol/L (21-32) Anion Gap 9 (6-14) Blood Urea Nitrogen 33 mg/dL (7-20) Creatinine 1.2 mg/dL (0.6-1.0) Estimated GFR (Cockcroft-Gault) 43.7 BUN/Creatinine Ratio 28 (6-20) Glucose Level 85 mg/dL (70-99) Calcium Level 8.4 mg/dL (8.5-10.1) Total Bilirubin 0.4 mg/dL (0.2-1.0) Aspartate Amino Transf (AST/SGOT) 255 U/L (15-37) Alanine Aminotransferase (ALT/SGPT) 446 U/L (14-59) Alkaline Phosphatase 127 U/L (46-116) Troponin I Quantitative 0.059 ng/mL (0.000-0.055) 0.067 ng/mL (0.000-0.055) 0.080 ng/mL (0.000-0.055) WU-Wxp-Q-Type Natriuretic Peptide 9992 pg/mL (0-449) Total Protein 6.9 g/dL (6.4-8.2) Albumin 3.3 g/dL (3.4-5.0) Albumin/Globulin Ratio 0.9 (1.0-1.7) Test 07/08/17 07:00 07/08/17 07:05 Prothrombin Time 24.8 SEC (11.7-14.0) Prothromb Time International Ratio 2.4 (0.8-1.1) Sodium Level 138 mmol/L (136-145) Potassium Level 3.6 mmol/L (3.5-5.1) Chloride Level 102 mmol/L (98-107) Carbon Dioxide Level 30 mmol/L (21-32) Anion Gap 6 (6-14) Blood Urea Nitrogen 32 mg/dL (7-20) Creatinine 1.1 mg/dL (0.6-1.0) Estimated GFR (Cockcroft-Gault) 48.3 Glucose Level 79 mg/dL (70-99) Calcium Level 7.8 mg/dL (8.5-10.1) White Blood Count 4.5 x10^3/uL (4.0-11.0) Red Blood Count 2.72 x10^6/uL (3.50-5.40) Hemoglobin 9.9 g/dL (12.0-15.5) Hematocrit 29.4 % (36.0-47.0) Mean Corpuscular Volume 108 fL (79-100) Mean Corpuscular Hemoglobin 37 pg (25-35) Mean Corpuscular Hemoglobin Concent 34 g/dL (31-37) Red Cell Distribution Width 17.4 % (11.5-14.5) Platelet Count 196 x10^3/uL (140-400) Neutrophils (%) (Auto) 69 % (31-73) Lymphocytes (%) (Auto) 21 % (24-48) Monocytes (%) (Auto) 7 % (0-9) Eosinophils (%) (Auto) 1 % (0-3) Basophils (%) (Auto) 1 % (0-3) Neutrophils # (Auto) 3.1 x10^3uL (1.8-7.7) Lymphocytes # (Auto) 1.0 x10^3/uL (1.0-4.8) Monocytes # (Auto) 0.3 x10^3/uL (0.0-1.1) Eosinophils # (Auto) 0.0 x10^3/uL (0.0-0.7) Basophils # (Auto) 0.0 x10^3/uL (0.0-0.2) Laboratory Tests Test 07/07/17 11:50 07/07/17 12:05 07/07/17 17:32 07/08/17 00:15 Urine Color Yellow Urine Clarity Clear Urine pH 6.0 Urine Specific [place] <=1.005 Urine Protein Negative mg/dL (NEG-TRACE) Urine Glucose (UA) Negative mg/dL (NEG) Urine Ketones (Stick) Negative mg/dL (NEG) Urine Blood Negative (NEG) Urine Nitrite Negative (NEG) Urine Bilirubin Negative (NEG) Urine Urobilinogen Dipstick 0.2 mg/dL (0.2 mg/dL) Urine Leukocyte Esterase Negative (NEG) Urine RBC 0 /HPF (0-2) Urine WBC 0 /HPF (0-4) Urine Squamous Epithelial Cells Occ /LPF Urine Bacteria Few /HPF (0-FEW) Urine Hyaline Casts Few /HPF White Blood Count 4.8 x10^3/uL (4.0-11.0) Red Blood Count 3.23 x10^6/uL (3.50-5.40) Hemoglobin 11.7 g/dL (12.0-15.5) Hematocrit 34.7 % (36.0-47.0) Mean Corpuscular Volume 108 fL (79-100) Mean Corpuscular Hemoglobin 36 pg (25-35) Mean Corpuscular Hemoglobin Concent 34 g/dL (31-37) Red Cell Distribution Width 17.5 % (11.5-14.5) Platelet Count 223 x10^3/uL (140-400) Neutrophils (%) (Auto) 77 % (31-73) Lymphocytes (%) (Auto) 16 % (24-48) Monocytes (%) (Auto) 5 % (0-9) Eosinophils (%) (Auto) 1 % (0-3) Basophils (%) (Auto) 1 % (0-3) Neutrophils # (Auto) 3.7 x10^3uL (1.8-7.7) Lymphocytes # (Auto) 0.8 x10^3/uL (1.0-4.8) Monocytes # (Auto) 0.3 x10^3/uL (0.0-1.1) Eosinophils # (Auto) 0.0 x10^3/uL (0.0-0.7) Basophils # (Auto) 0.0 x10^3/uL (0.0-0.2) Prothrombin Time 27.4 SEC (11.7-14.0) Prothromb Time International Ratio 2.8 (0.8-1.1) Activated Partial Thromboplast Time 33 SEC (24-38) Sodium Level 137 mmol/L (136-145) Potassium Level 4.6 mmol/L (3.5-5.1) Chloride Level 103 mmol/L (98-107) Carbon Dioxide Level 25 mmol/L (21-32) Anion Gap 9 (6-14) Blood Urea Nitrogen 33 mg/dL (7-20) Creatinine 1.2 mg/dL (0.6-1.0) Estimated GFR (Cockcroft-Gault) 43.7 BUN/Creatinine Ratio 28 (6-20) Glucose Level 85 mg/dL (70-99) Calcium Level 8.4 mg/dL (8.5-10.1) Total Bilirubin 0.4 mg/dL (0.2-1.0) Aspartate Amino Transf (AST/SGOT) 255 U/L (15-37) Alanine Aminotransferase (ALT/SGPT) 446 U/L (14-59) Alkaline Phosphatase 127 U/L (46-116) Troponin I Quantitative 0.059 ng/mL (0.000-0.055) 0.067 ng/mL (0.000-0.055) 0.080 ng/mL (0.000-0.055) XD-Oni-P-Type Natriuretic Peptide 9992 pg/mL (0-449) Total Protein 6.9 g/dL (6.4-8.2) Albumin 3.3 g/dL (3.4-5.0) Albumin/Globulin Ratio 0.9 (1.0-1.7) Test 07/08/17 07:00 07/08/17 07:05 Prothrombin Time 24.8 SEC (11.7-14.0) Prothromb Time International Ratio 2.4 (0.8-1.1) Sodium Level 138 mmol/L (136-145) Potassium Level 3.6 mmol/L (3.5-5.1) Chloride Level 102 mmol/L (98-107) Carbon Dioxide Level 30 mmol/L (21-32) Anion Gap 6 (6-14) Blood Urea Nitrogen 32 mg/dL (7-20) Creatinine 1.1 mg/dL (0.6-1.0) Estimated GFR (Cockcroft-Gault) 48.3 Glucose Level 79 mg/dL (70-99) Calcium Level 7.8 mg/dL (8.5-10.1) White Blood Count 4.5 x10^3/uL (4.0-11.0) Red Blood Count 2.72 x10^6/uL (3.50-5.40) Hemoglobin 9.9 g/dL (12.0-15.5) Hematocrit 29.4 % (36.0-47.0) Mean Corpuscular Volume 108 fL (79-100) Mean Corpuscular Hemoglobin 37 pg (25-35) Mean Corpuscular Hemoglobin Concent 34 g/dL (31-37) Red Cell Distribution Width 17.4 % (11.5-14.5) Platelet Count 196 x10^3/uL (140-400) Neutrophils (%) (Auto) 69 % (31-73) Lymphocytes (%) (Auto) 21 % (24-48) Monocytes (%) (Auto) 7 % (0-9) Eosinophils (%) (Auto) 1 % (0-3) Basophils (%) (Auto) 1 % (0-3) Neutrophils # (Auto) 3.1 x10^3uL (1.8-7.7) Lymphocytes # (Auto) 1.0 x10^3/uL (1.0-4.8) Monocytes # (Auto) 0.3 x10^3/uL (0.0-1.1) Eosinophils # (Auto) 0.0 x10^3/uL (0.0-0.7) Basophils # (Auto) 0.0 x10^3/uL (0.0-0.2) Assessment/Plan Assessment/Plan Pt comes in with an acute exacerbation of her CHF. She is presently being diuresed. Continue with current treatment. Case discussed with Dr Elias Thank you CJ DIAL MD Jul 08, 2017 09:09
[2017-07-08 11:00] VITALS: BP 109/66
--- NOTE | 2017-07-08 11:43 | PDOC ---
PROGRESS NOTES Chief Complaint Chief Complaint CC: Swelling all over (CHF exacerbation) -CHF -CKD stage 3 -A-Fib -Hyperlipidemia History of Present Illness History of Present Illness -Pt was resting in the recliner -Awake, alert and in NAD -Discussed recent changes in Lasix dosages with pt Vitals Vitals Vital Signs Date Time Temp Pulse Resp B/P (MAP) Pulse Ox O2 Delivery O2 Flow Rate FiO2 07/08/17 09:00 85 106/60 07/08/17 08:00 Room Air 07/08/17 07:00 98.2 16 99 98.2 Physical Exam General: Alert, Oriented X3, Cooperative, No acute distress Heart: Normal S1, Normal S2 Lungs: Clear, Other (No RRW) Abdomen: Normal bowel sounds, Soft, No tenderness, No hepatosplenomegaly, No masses Extremities: No cyanosis, No edema Skin: No breakdown, No significant lesion Labs LABS Laboratory Tests Test 07/07/17 11:50 07/07/17 12:05 07/07/17 17:32 07/08/17 00:15 Urine Color Yellow Urine Clarity Clear Urine pH 6.0 Urine Specific [place] <=1.005 Urine Protein Negative mg/dL (NEG-TRACE) Urine Glucose (UA) Negative mg/dL (NEG) Urine Ketones (Stick) Negative mg/dL (NEG) Urine Blood Negative (NEG) Urine Nitrite Negative (NEG) Urine Bilirubin Negative (NEG) Urine Urobilinogen Dipstick 0.2 mg/dL (0.2 mg/dL) Urine Leukocyte Esterase Negative (NEG) Urine RBC 0 /HPF (0-2) Urine WBC 0 /HPF (0-4) Urine Squamous Epithelial Cells Occ /LPF Urine Bacteria Few /HPF (0-FEW) Urine Hyaline Casts Few /HPF White Blood Count 4.8 x10^3/uL (4.0-11.0) Red Blood Count 3.23 x10^6/uL (3.50-5.40) Hemoglobin 11.7 g/dL (12.0-15.5) Hematocrit 34.7 % (36.0-47.0) Mean Corpuscular Volume 108 fL (79-100) Mean Corpuscular Hemoglobin 36 pg (25-35) Mean Corpuscular Hemoglobin Concent 34 g/dL (31-37) Red Cell Distribution Width 17.5 % (11.5-14.5) Platelet Count 223 x10^3/uL (140-400) Neutrophils (%) (Auto) 77 % (31-73) Lymphocytes (%) (Auto) 16 % (24-48) Monocytes (%) (Auto) 5 % (0-9) Eosinophils (%) (Auto) 1 % (0-3) Basophils (%) (Auto) 1 % (0-3) Neutrophils # (Auto) 3.7 x10^3uL (1.8-7.7) Lymphocytes # (Auto) 0.8 x10^3/uL (1.0-4.8) Monocytes # (Auto) 0.3 x10^3/uL (0.0-1.1) Eosinophils # (Auto) 0.0 x10^3/uL (0.0-0.7) Basophils # (Auto) 0.0 x10^3/uL (0.0-0.2) Prothrombin Time 27.4 SEC (11.7-14.0) Prothromb Time International Ratio 2.8 (0.8-1.1) Activated Partial Thromboplast Time 33 SEC (24-38) Sodium Level 137 mmol/L (136-145) Potassium Level 4.6 mmol/L (3.5-5.1) Chloride Level 103 mmol/L (98-107) Carbon Dioxide Level 25 mmol/L (21-32) Anion Gap 9 (6-14) Blood Urea Nitrogen 33 mg/dL (7-20) Creatinine 1.2 mg/dL (0.6-1.0) Estimated GFR (Cockcroft-Gault) 43.7 BUN/Creatinine Ratio 28 (6-20) Glucose Level 85 mg/dL (70-99) Calcium Level 8.4 mg/dL (8.5-10.1) Total Bilirubin 0.4 mg/dL (0.2-1.0) Aspartate Amino Transf (AST/SGOT) 255 U/L (15-37) Alanine Aminotransferase (ALT/SGPT) 446 U/L (14-59) Alkaline Phosphatase 127 U/L (46-116) Troponin I Quantitative 0.059 ng/mL (0.000-0.055) 0.067 ng/mL (0.000-0.055) 0.080 ng/mL (0.000-0.055) RO-Dgy-Z-Type Natriuretic Peptide 9992 pg/mL (0-449) Total Protein 6.9 g/dL (6.4-8.2) Albumin 3.3 g/dL (3.4-5.0) Albumin/Globulin Ratio 0.9 (1.0-1.7) Test 07/08/17 07:00 07/08/17 07:05 Prothrombin Time 24.8 SEC (11.7-14.0) Prothromb Time International Ratio 2.4 (0.8-1.1) Sodium Level 138 mmol/L (136-145) Potassium Level 3.6 mmol/L (3.5-5.1) Chloride Level 102 mmol/L (98-107) Carbon Dioxide Level 30 mmol/L (21-32) Anion Gap 6 (6-14) Blood Urea Nitrogen 32 mg/dL (7-20) Creatinine 1.1 mg/dL (0.6-1.0) Estimated GFR (Cockcroft-Gault) 48.3 Glucose Level 79 mg/dL (70-99) Calcium Level 7.8 mg/dL (8.5-10.1) White Blood Count 4.5 x10^3/uL (4.0-11.0) Red Blood Count 2.72 x10^6/uL (3.50-5.40) Hemoglobin 9.9 g/dL (12.0-15.5) Hematocrit 29.4 % (36.0-47.0) Mean Corpuscular Volume 108 fL (79-100) Mean Corpuscular Hemoglobin 37 pg (25-35) Mean Corpuscular Hemoglobin Concent 34 g/dL (31-37) Red Cell Distribution Width 17.4 % (11.5-14.5) Platelet Count 196 x10^3/uL (140-400) Neutrophils (%) (Auto) 69 % (31-73) Lymphocytes (%) (Auto) 21 % (24-48) Monocytes (%) (Auto) 7 % (0-9) Eosinophils (%) (Auto) 1 % (0-3) Basophils (%) (Auto) 1 % (0-3) Neutrophils # (Auto) 3.1 x10^3uL (1.8-7.7) Lymphocytes # (Auto) 1.0 x10^3/uL (1.0-4.8) Monocytes # (Auto) 0.3 x10^3/uL (0.0-1.1) Eosinophils # (Auto) 0.0 x10^3/uL (0.0-0.7) Basophils # (Auto) 0.0 x10^3/uL (0.0-0.2) Review of Systems Review of Systems -Denies n/v/d -Complains of weakness Assessment and Plan Assessmemt and Plan CC: Swelling all over (CHF exacerbation) -CHF -CKD stage 3 -A-Fib -Hyperlipidemia Plan: -Cont. cardiac monitoring -Cont. to diurese -Recheck labs -PT/OT -Await cardiology input -Possible d/c tomorrow if okay with cardio Problems: Comment Review of Relevant I have reviewed the following items leila (where applicable) has been applied. Labs Laboratory Tests Test 07/07/17 11:50 07/07/17 12:05 07/07/17 17:32 07/08/17 00:15 Urine Color Yellow Urine Clarity Clear Urine pH 6.0 Urine Specific [place] <=1.005 Urine Protein Negative mg/dL (NEG-TRACE) Urine Glucose (UA) Negative mg/dL (NEG) Urine Ketones (Stick) Negative mg/dL (NEG) Urine Blood Negative (NEG) Urine Nitrite Negative (NEG) Urine Bilirubin Negative (NEG) Urine Urobilinogen Dipstick 0.2 mg/dL (0.2 mg/dL) Urine Leukocyte Esterase Negative (NEG) Urine RBC 0 /HPF (0-2) Urine WBC 0 /HPF (0-4) Urine Squamous Epithelial Cells Occ /LPF Urine Bacteria Few /HPF (0-FEW) Urine Hyaline Casts Few /HPF White Blood Count 4.8 x10^3/uL (4.0-11.0) Red Blood Count 3.23 x10^6/uL (3.50-5.40) Hemoglobin 11.7 g/dL (12.0-15.5) Hematocrit 34.7 % (36.0-47.0) Mean Corpuscular Volume 108 fL (79-100) Mean Corpuscular Hemoglobin 36 pg (25-35) Mean Corpuscular Hemoglobin Concent 34 g/dL (31-37) Red Cell Distribution Width 17.5 % (11.5-14.5) Platelet Count 223 x10^3/uL (140-400) Neutrophils (%) (Auto) 77 % (31-73) Lymphocytes (%) (Auto) 16 % (24-48) Monocytes (%) (Auto) 5 % (0-9) Eosinophils (%) (Auto) 1 % (0-3) Basophils (%) (Auto) 1 % (0-3) Neutrophils # (Auto) 3.7 x10^3uL (1.8-7.7) Lymphocytes # (Auto) 0.8 x10^3/uL (1.0-4.8) Monocytes # (Auto) 0.3 x10^3/uL (0.0-1.1) Eosinophils # (Auto) 0.0 x10^3/uL (0.0-0.7) Basophils # (Auto) 0.0 x10^3/uL (0.0-0.2) Prothrombin Time 27.4 SEC (11.7-14.0) Prothromb Time International Ratio 2.8 (0.8-1.1) Activated Partial Thromboplast Time 33 SEC (24-38) Sodium Level 137 mmol/L (136-145) Potassium Level 4.6 mmol/L (3.5-5.1) Chloride Level 103 mmol/L (98-107) Carbon Dioxide Level 25 mmol/L (21-32) Anion Gap 9 (6-14) Blood Urea Nitrogen 33 mg/dL (7-20) Creatinine 1.2 mg/dL (0.6-1.0) Estimated GFR (Cockcroft-Gault) 43.7 BUN/Creatinine Ratio 28 (6-20) Glucose Level 85 mg/dL (70-99) Calcium Level 8.4 mg/dL (8.5-10.1) Total Bilirubin 0.4 mg/dL (0.2-1.0) Aspartate Amino Transf (AST/SGOT) 255 U/L (15-37) Alanine Aminotransferase (ALT/SGPT) 446 U/L (14-59) Alkaline Phosphatase 127 U/L (46-116) Troponin I Quantitative 0.059 ng/mL (0.000-0.055) 0.067 ng/mL (0.000-0.055) 0.080 ng/mL (0.000-0.055) VR-Utc-X-Type Natriuretic Peptide 9992 pg/mL (0-449) Total Protein 6.9 g/dL (6.4-8.2) Albumin 3.3 g/dL (3.4-5.0) Albumin/Globulin Ratio 0.9 (1.0-1.7) Test 07/08/17 07:00 07/08/17 07:05 Prothrombin Time 24.8 SEC (11.7-14.0) Prothromb Time International Ratio 2.4 (0.8-1.1) Sodium Level 138 mmol/L (136-145) Potassium Level 3.6 mmol/L (3.5-5.1) Chloride Level 102 mmol/L (98-107) Carbon Dioxide Level 30 mmol/L (21-32) Anion Gap 6 (6-14) Blood Urea Nitrogen 32 mg/dL (7-20) Creatinine 1.1 mg/dL (0.6-1.0) Estimated GFR (Cockcroft-Gault) 48.3 Glucose Level 79 mg/dL (70-99) Calcium Level 7.8 mg/dL (8.5-10.1) White Blood Count 4.5 x10^3/uL (4.0-11.0) Red Blood Count 2.72 x10^6/uL (3.50-5.40) Hemoglobin 9.9 g/dL (12.0-15.5) Hematocrit 29.4 % (36.0-47.0) Mean Corpuscular Volume 108 fL (79-100) Mean Corpuscular Hemoglobin 37 pg (25-35) Mean Corpuscular Hemoglobin Concent 34 g/dL (31-37) Red Cell Distribution Width 17.4 % (11.5-14.5) Platelet Count 196 x10^3/uL (140-400) Neutrophils (%) (Auto) 69 % (31-73) Lymphocytes (%) (Auto) 21 % (24-48) Monocytes (%) (Auto) 7 % (0-9) Eosinophils (%) (Auto) 1 % (0-3) Basophils (%) (Auto) 1 % (0-3) Neutrophils # (Auto) 3.1 x10^3uL (1.8-7.7) Lymphocytes # (Auto) 1.0 x10^3/uL (1.0-4.8) Monocytes # (Auto) 0.3 x10^3/uL (0.0-1.1) Eosinophils # (Auto) 0.0 x10^3/uL (0.0-0.7) Basophils # (Auto) 0.0 x10^3/uL (0.0-0.2) Laboratory Tests Test 07/07/17 11:50 07/07/17 12:05 07/07/17 17:32 07/08/17 00:15 Urine Color Yellow Urine Clarity Clear Urine pH 6.0 Urine Specific [place] <=1.005 Urine Protein Negative mg/dL (NEG-TRACE) Urine Glucose (UA) Negative mg/dL (NEG) Urine Ketones (Stick) Negative mg/dL (NEG) Urine Blood Negative (NEG) Urine Nitrite Negative (NEG) Urine Bilirubin Negative (NEG) Urine Urobilinogen Dipstick 0.2 mg/dL (0.2 mg/dL) Urine Leukocyte Esterase Negative (NEG) Urine RBC 0 /HPF (0-2) Urine WBC 0 /HPF (0-4) Urine Squamous Epithelial Cells Occ /LPF Urine Bacteria Few /HPF (0-FEW) Urine Hyaline Casts Few /HPF White Blood Count 4.8 x10^3/uL (4.0-11.0) Red Blood Count 3.23 x10^6/uL (3.50-5.40) Hemoglobin 11.7 g/dL (12.0-15.5) Hematocrit 34.7 % (36.0-47.0) Mean Corpuscular Volume 108 fL (79-100) Mean Corpuscular Hemoglobin 36 pg (25-35) Mean Corpuscular Hemoglobin Concent 34 g/dL (31-37) Red Cell Distribution Width 17.5 % (11.5-14.5) Platelet Count 223 x10^3/uL (140-400) Neutrophils (%) (Auto) 77 % (31-73) Lymphocytes (%) (Auto) 16 % (24-48) Monocytes (%) (Auto) 5 % (0-9) Eosinophils (%) (Auto) 1 % (0-3) Basophils (%) (Auto) 1 % (0-3) Neutrophils # (Auto) 3.7 x10^3uL (1.8-7.7) Lymphocytes # (Auto) 0.8 x10^3/uL (1.0-4.8) Monocytes # (Auto) 0.3 x10^3/uL (0.0-1.1) Eosinophils # (Auto) 0.0 x10^3/uL (0.0-0.7) Basophils # (Auto) 0.0 x10^3/uL (0.0-0.2) Prothrombin Time 27.4 SEC (11.7-14.0) Prothromb Time International Ratio 2.8 (0.8-1.1) Activated Partial Thromboplast Time 33 SEC (24-38) Sodium Level 137 mmol/L (136-145) Potassium Level 4.6 mmol/L (3.5-5.1) Chloride Level 103 mmol/L (98-107) Carbon Dioxide Level 25 mmol/L (21-32) Anion Gap 9 (6-14) Blood Urea Nitrogen 33 mg/dL (7-20) Creatinine 1.2 mg/dL (0.6-1.0) Estimated GFR (Cockcroft-Gault) 43.7 BUN/Creatinine Ratio 28 (6-20) Glucose Level 85 mg/dL (70-99) Calcium Level 8.4 mg/dL (8.5-10.1) Total Bilirubin 0.4 mg/dL (0.2-1.0) Aspartate Amino Transf (AST/SGOT) 255 U/L (15-37) Alanine Aminotransferase (ALT/SGPT) 446 U/L (14-59) Alkaline Phosphatase 127 U/L (46-116) Troponin I Quantitative 0.059 ng/mL (0.000-0.055) 0.067 ng/mL (0.000-0.055) 0.080 ng/mL (0.000-0.055) GE-Dvm-L-Type Natriuretic Peptide 9992 pg/mL (0-449) Total Protein 6.9 g/dL (6.4-8.2) Albumin 3.3 g/dL (3.4-5.0) Albumin/Globulin Ratio 0.9 (1.0-1.7) Test 07/08/17 07:00 07/08/17 07:05 Prothrombin Time 24.8 SEC (11.7-14.0) Prothromb Time International Ratio 2.4 (0.8-1.1) Sodium Level 138 mmol/L (136-145) Potassium Level 3.6 mmol/L (3.5-5.1) Chloride Level 102 mmol/L (98-107) Carbon Dioxide Level 30 mmol/L (21-32) Anion Gap 6 (6-14) Blood Urea Nitrogen 32 mg/dL (7-20) Creatinine 1.1 mg/dL (0.6-1.0) Estimated GFR (Cockcroft-Gault) 48.3 Glucose Level 79 mg/dL (70-99) Calcium Level 7.8 mg/dL (8.5-10.1) White Blood Count 4.5 x10^3/uL (4.0-11.0) Red Blood Count 2.72 x10^6/uL (3.50-5.40) Hemoglobin 9.9 g/dL (12.0-15.5) Hematocrit 29.4 % (36.0-47.0) Mean Corpuscular Volume 108 fL (79-100) Mean Corpuscular Hemoglobin 37 pg (25-35) Mean Corpuscular Hemoglobin Concent 34 g/dL (31-37) Red Cell Distribution Width 17.4 % (11.5-14.5) Platelet Count 196 x10^3/uL (140-400) Neutrophils (%) (Auto) 69 % (31-73) Lymphocytes (%) (Auto) 21 % (24-48) Monocytes (%) (Auto) 7 % (0-9) Eosinophils (%) (Auto) 1 % (0-3) Basophils (%) (Auto) 1 % (0-3) Neutrophils # (Auto) 3.1 x10^3uL (1.8-7.7) Lymphocytes # (Auto) 1.0 x10^3/uL (1.0-4.8) Monocytes # (Auto) 0.3 x10^3/uL (0.0-1.1) Eosinophils # (Auto) 0.0 x10^3/uL (0.0-0.7) Basophils # (Auto) 0.0 x10^3/uL (0.0-0.2) Medications Current Medications Furosemide (Lasix) 80 mg 1X ONCE IVP Last administered on 07/07/17t 13:19; Start 07/07/17 at 13:15; Stop 07/07/17 at 13:16; Status DC Ondansetron HCl (Zofran) 4 mg PRN Q8HRS PRN IV NAUSEA/VOMITING; Start 07/07/17 at 13:30; Stop 07/08/17 at 13:29 Fentanyl Citrate (Fentanyl 2ml Vial) 50 mcg PRN Q1HR PRN IV PAIN; Start at 13:30; Stop 07/08/17 at 13:29 Allopurinol (Zyloprim) 100 mg DAILY PO Last administered on 07/08/17 08:59; Start 07/07/17 at 16:00 Alprazolam (Xanax) 0.25 mg PRN BID PRN PO ANXIETY / AGITATION Last administered on 07/08/17 06:11; Start 07/07/17 at 15:30 Furosemide (Lasix) 40 mg DAILY PO ; Start 07/07/17 at 16:00; Stop 07/07/17 at 16 :46; Status DC Guaifenesin (MUCINEX ER with DM) 1 tab PRN Q12HRS PRN PO COUGH; Start 07/07/17 at 15:30 Levothyroxine Sodium (Synthroid) 100 mcg DAILY06 PO Last administered on 05:21; Start 07/08/17 at 06:00 Methotrexate (Rheumatrex) 17.5 mg We PO ; Start 07/10/17 at 09:00 Potassium Chloride (Klor-Con) 20 meq BIDWMEALS PO Last administered on 08:59; Start 07/07/17 at 17:00 Propafenone HCl (Rythmol) 150 mg BID PO Last administered on 07/08/17 09:00; Start 07/07/17 at 21:00 Spironolactone (Aldactone) 25 mg DAILY PO Last administered on 07/07/17 16:12 ; Start 07/07/17 at 16:00; Stop 07/07/17 at 16:58; Status DC Tramadol HCl (Ultram) 50 mg PRN Q6HRS PRN PO PAIN Last administered on 05:24; Start 07/07/17 at 15:30 Trazodone HCl (Desyrel) 25 mg HS PO Last administered on 07/07/17 20:16; Start 07/07/17 at 21:00 Warfarin Sodium (Coumadin) 6 mg DAILY16 PO Last administered on 07/07/17 16:00 ; Start 07/07/17 at 16:00 Non-Formulary Medication 1,000 mg BID PO ; Start 07/07/17 at 21:00; Status UNV Calcium/Vitamin D (Oscal D 500mg/ 200uts) 1 tab BIDWMEALS PO Last administered on 07/08/17 08:59; Start 07/07/17 at 17:00 Cetirizine HCl (ZyrTEC) 10 mg PRN DAILY PRN PO ALLERGIE; Start 07/08/17 at 09: 00 Fish Oil (Fish Oil) 1,000 mg DAILY PO Last administered on 07/08/17 08:58; Start 07/08/17 at 09:00 Pantoprazole Sodium (Protonix) 40 mg DAILYAC PO Last administered on 07/08/17 09:00; Start 07/08/17 at 07:30 Paroxetine HCl (Paxil) 20 mg DAILY PO Last administered on 07/08/17 08:59; Start 07/07/17 at 16:00 Artificial Tears (Artificial Tears) 1 drop DAILY OU ; Start 07/08/17 at 09:00 Hydroxychloroquine Sulfate (Plaquenil) 200 mg DAILY08 PO Last administered on 08:59; Start 07/08/17 at 08:00 Ferrous Sulfate (Feosol) 325 mg DAILYWBKFT PO Last administered on 07/08/17 09 :00; Start 07/08/17 at 08:00 Warfarin Sodium (Coumadin Per Physician) 1 each PRN DAILY PRN MC SEE COMMENTS Last administered on 07/08/17 09:02; Start 07/07/17 at 15:45 Furosemide (Lasix) 80 mg BID92 PO Last administered on 07/08/17 08:59; Start 07/08/17 at 09:00 Spironolactone (Aldactone) 50 mg DAILY PO Last administered on 07/08/17 09:00 ; Start 07/08/17 at 09:00 Active Scripts Active Lasix (Furosemide) 40 Mg Tablet 1 Tab PO DAILY Aldactone (Spironolactone) 25 Mg Tablet 1 Tab PO DAILY Klor-Con M20 (Potassium Chloride) 20 Meq Tab.er.prt 20 Meq PO BIDWMEALS Reported Methotrexate (Methotrexate Sodium) 2.5 Mg Tablet 7 Tab PO SATURDAY [hydroxyl-chloroquine] 200 Mg PO DAILY08 Calcium + Vitamin D Tablet (Calcium Carbonate/Vitamin D3) 1 Each Tablet 1 Each PO BID Claritin (Loratadine) 10 Mg Tablet 1 Tab PO DAILY PRN Coumadin (Warfarin Sodium) 6 Mg Tablet 6 Mg PO ,,,,DUNCAN Acetaminophen 500 Mg Tablet 1 Tab PO PRN Q6HRS PRN Mucinex Dm Er 600-30 Mg Tablet (Guaifenesin/Dextromethorphan) 1 Each Tab.er.12h 1 Tab PO PRN Q12HRS Trazodone Hcl 50 Mg Tablet 25 Mg PO HS Propafenone Hcl 150 Mg Tablet 150 Mg PO BID Systane 0.3-0.4% Eye Drops (Propylene Glycol/Peg 400/Pf) 1 Each Droperette 1 Each OP DAILY Xanax (Alprazolam) 0.25 Mg Tablet 1 Tab PO PRN BID PRN Biotin 1 Mg Capsule 1,000 Mg PO BID [lutein] 1 Tab BID [Iron ] 1 Tab DAILY Omeprazole 40 Mg Capsule.dr 40 Mg PO DAILY Tramadol Hcl 50 Mg Tablet 50 Mg PO PRN Q6HRS PRN Fish Oil 1,000 Mg Softgel (Brooker-3 Fatty Acids/Fish Oil) 1 Each Capsule 1 Each PO DAILY Allopurinol 100 Mg Tablet 100 Mg PO DAILY Paxil (Paroxetine Hcl) 40 Mg Tablet 20 Mg PO DAILY Levothyroxine Sodium 100 Mcg Tablet 100 Mcg PO DAILY Vitals/I & O Vital Sign - Last 24 Hours 07/07/17 07/07/17 07/07/17 07/07/17 11:42 14:23 15:00 16:12 Temp 98.3 97.5 97.5 98.3 97.5 97.5 Pulse 95 84 84 Resp 18 20 20 18 B/P (MAP) 112/71 (85) 115/69 (84) 115/69 (84) Pulse Ox 98 100 100 100 O2 Delivery Room Air Room Air Room Air Room Air 07/07/17 07/07/17 07/07/17 07/07/17 16:54 17:15 19:37 19:39 Temp 98.0 98.0 Pulse 84 Resp 18 B/P (MAP) 100/58 (72) Pulse Ox 100 99 O2 Delivery Room Air Room Air Room Air 07/07/17 07/07/17 07/08/17 07/08/17 20:14 23:22 02:29 05:24 Temp 97.8 98.0 97.8 98.0 Pulse 84 85 95 Resp 16 18 20 B/P (MAP) 100/58 89/56 (67) 99/58 (72) Pulse Ox 96 98 O2 Delivery Room Air Room Air Room Air 07/08/17 07/08/17 07/08/17 07/08/17 06:24 07:00 08:00 09:00 Temp 98.2 98.2 Pulse 85 85 Resp 18 16 B/P (MAP) 106/60 (75) 106/60 Pulse Ox 99 O2 Delivery Room Air Room Air Intake and Output 07/07/17 07/07/17 07/08/17 15:00 23:00 07:00 Intake Total 240 ml 300 ml Output Total 775 ml Balance 240 ml -475 ml BRITTA MARTINEZ III DO Jul 08, 2017 11:43
[2017-07-08 15:00] VITALS: BP 100/64
[2017-07-08] MEDS: WARFARIN 6 MG TABLET. PO SCH (17:43)
[2017-07-08 19:43] VITALS: BP 97/62
[2017-07-08] MEDS: traZODone 50 MG TABLET. PO SCH (21:46)
[2017-07-08 22:48] VITALS: BP 94/59
[2017-07-09] MEDS ORDERED: ACETAMINOPHEN 325 MG TABLET. PO PRN (01:45)
[2017-07-09 02:00] VITALS: BP 100/61
[2017-07-09] MEDS: ALPRAZolam 0.25 MG TABLET PO PRN (05:42)
[2017-07-09] MEDS: traMADol 50 MG TABLET PO PRN (05:42)
[2017-07-09] MEDS: LEVOTHYROXINE 100 MCG TABLET PO SCH (05:42)
[2017-07-09 05:50] LABS: INR 2.5 (0.8-1.1); PROTHROMBIN TIME PATIENT 25.1 SEC (11.7-14.0)
[2017-07-09 07:19] VITALS: BP 109/62
[2017-07-09 07:29] LABS: CALCIUM 7.9 mg/dL (8.5-10.1); CREATININE 1.1 mg/dL (0.6-1.0); GFR 48.3; POTASSIUM 3.8 mmol/L (3.5-5.1)
[2017-07-09] MEDS ORDERED: POTASSIUM CHLORIDE 20 MEQ TABLET.ER. PO ONE (07:45)
[2017-07-09] MEDS: POLYVINYL ALCOHOL 1.4% OPHTH SOLUTION 15ML BOTTLE. OU SCH (09:00)
[2017-07-09] MEDS: HYDROXYCHLOROQUINE 200 MG TABLET PO SCH (09:07)
[2017-07-09] MEDS: OMEGA-3 FATTY ACIDS/FISH OIL 1,000 MG CAPSULE. PO SCH (09:07)
[2017-07-09] MEDS: CALCIUM CARB/VIT D3 500/200 TABLET. PO SCH (09:08)
[2017-07-09] MEDS: SPIRONOLACTONE 25 MG TABLET PO SCH (09:09)
[2017-07-09 09:10] VITALS: BP 109/62
[2017-07-09] MEDS: PROPAFENONE 150 MG TABLET. PO SCH (09:10)
[2017-07-09] MEDS: PARoxetine 20 MG TABLET PO SCH (09:10)
[2017-07-09] MEDS: ALLOPURINOL 100 MG TABLET. PO SCH (09:10)
[2017-07-09] MEDS: PANTOPRAZOLE 40 MG TABLET.DR. PO SCH (09:10)
[2017-07-09] MEDS: FUROSEMIDE 80 MG TABLET. PO SCH (09:10)
[2017-07-09] MEDS: FERROUS SULFATE 325 MG TABLET. PO SCH (09:10)
--- NOTE | 2017-07-09 09:54 | PDOC ---
PROGRESS NOTES Chief Complaint Chief Complaint CC: Swelling all over (CHF exacerbation) -CHF -CKD stage 3 -A-Fib -Hyperlipidemia History of Present Illness History of Present Illness -Pt was resting in the recliner -Awake, alert and in NAD -Appeared comfortable -Pt expressed a strong desire to go home Vitals Vitals Vital Signs Date Time Temp Pulse Resp B/P (MAP) Pulse Ox O2 Delivery O2 Flow Rate FiO2 07/09/17 09:10 76 109/62 07/09/17 07:19 97.6 18 98 Room Air 97.6 Physical Exam General: Alert, Oriented X3, Cooperative, No acute distress Heart: Normal S1, Normal S2 Lungs: Clear, Other (No RRW) Abdomen: Normal bowel sounds, Soft, No tenderness, No hepatosplenomegaly, No masses Extremities: No cyanosis, No edema Skin: No breakdown, No significant lesion Labs LABS Laboratory Tests Test 07/09/17 04:25 Prothrombin Time 25.1 SEC (11.7-14.0) Prothromb Time International Ratio 2.5 (0.8-1.1) Sodium Level 141 mmol/L (136-145) Potassium Level 3.8 mmol/L (3.5-5.1) Chloride Level 103 mmol/L (98-107) Carbon Dioxide Level 28 mmol/L (21-32) Anion Gap 10 (6-14) Blood Urea Nitrogen 28 mg/dL (7-20) Creatinine 1.1 mg/dL (0.6-1.0) Estimated GFR (Cockcroft-Gault) 48.3 Glucose Level 77 mg/dL (70-99) Calcium Level 7.9 mg/dL (8.5-10.1) Review of Systems Review of Systems -Denies n/v/d -Weakness -Thirst Assessment and Plan Assessmemt and Plan CC: Swelling all over (CHF exacerbation) -CHF -CKD stage 3 -A-Fib -Hyperlipidemia Plan: -Cont. home meds -Recheck labs -PT/OT -Appreciate cardiology input -Discharge today Problems: Comment Review of Relevant I have reviewed the following items leila (where applicable) has been applied. Labs Laboratory Tests Test 07/07/17 11:50 07/07/17 12:05 07/07/17 17:32 07/08/17 00:15 Urine Color Yellow Urine Clarity Clear Urine pH 6.0 Urine Specific [place] <=1.005 Urine Protein Negative mg/dL (NEG-TRACE) Urine Glucose (UA) Negative mg/dL (NEG) Urine Ketones (Stick) Negative mg/dL (NEG) Urine Blood Negative (NEG) Urine Nitrite Negative (NEG) Urine Bilirubin Negative (NEG) Urine Urobilinogen Dipstick 0.2 mg/dL (0.2 mg/dL) Urine Leukocyte Esterase Negative (NEG) Urine RBC 0 /HPF (0-2) Urine WBC 0 /HPF (0-4) Urine Squamous Epithelial Cells Occ /LPF Urine Bacteria Few /HPF (0-FEW) Urine Hyaline Casts Few /HPF White Blood Count 4.8 x10^3/uL (4.0-11.0) Red Blood Count 3.23 x10^6/uL (3.50-5.40) Hemoglobin 11.7 g/dL (12.0-15.5) Hematocrit 34.7 % (36.0-47.0) Mean Corpuscular Volume 108 fL (79-100) Mean Corpuscular Hemoglobin 36 pg (25-35) Mean Corpuscular Hemoglobin Concent 34 g/dL (31-37) Red Cell Distribution Width 17.5 % (11.5-14.5) Platelet Count 223 x10^3/uL (140-400) Neutrophils (%) (Auto) 77 % (31-73) Lymphocytes (%) (Auto) 16 % (24-48) Monocytes (%) (Auto) 5 % (0-9) Eosinophils (%) (Auto) 1 % (0-3) Basophils (%) (Auto) 1 % (0-3) Neutrophils # (Auto) 3.7 x10^3uL (1.8-7.7) Lymphocytes # (Auto) 0.8 x10^3/uL (1.0-4.8) Monocytes # (Auto) 0.3 x10^3/uL (0.0-1.1) Eosinophils # (Auto) 0.0 x10^3/uL (0.0-0.7) Basophils # (Auto) 0.0 x10^3/uL (0.0-0.2) Prothrombin Time 27.4 SEC (11.7-14.0) Prothromb Time International Ratio 2.8 (0.8-1.1) Activated Partial Thromboplast Time 33 SEC (24-38) Sodium Level 137 mmol/L (136-145) Potassium Level 4.6 mmol/L (3.5-5.1) Chloride Level 103 mmol/L (98-107) Carbon Dioxide Level 25 mmol/L (21-32) Anion Gap 9 (6-14) Blood Urea Nitrogen 33 mg/dL (7-20) Creatinine 1.2 mg/dL (0.6-1.0) Estimated GFR (Cockcroft-Gault) 43.7 BUN/Creatinine Ratio 28 (6-20) Glucose Level 85 mg/dL (70-99) Calcium Level 8.4 mg/dL (8.5-10.1) Total Bilirubin 0.4 mg/dL (0.2-1.0) Aspartate Amino Transf (AST/SGOT) 255 U/L (15-37) Alanine Aminotransferase (ALT/SGPT) 446 U/L (14-59) Alkaline Phosphatase 127 U/L (46-116) Troponin I Quantitative 0.059 ng/mL (0.000-0.055) 0.067 ng/mL (0.000-0.055) 0.080 ng/mL (0.000-0.055) WM-Mxd-N-Type Natriuretic Peptide 9992 pg/mL (0-449) Total Protein 6.9 g/dL (6.4-8.2) Albumin 3.3 g/dL (3.4-5.0) Albumin/Globulin Ratio 0.9 (1.0-1.7) Test 07/08/17 07:00 07/08/17 07:05 07/09/17 04:25 Prothrombin Time 24.8 SEC (11.7-14.0) 25.1 SEC (11.7-14.0) Prothromb Time International Ratio 2.4 (0.8-1.1) 2.5 (0.8-1.1) Sodium Level 138 mmol/L (136-145) 141 mmol/L (136-145) Potassium Level 3.6 mmol/L (3.5-5.1) 3.8 mmol/L (3.5-5.1) Chloride Level 102 mmol/L (98-107) 103 mmol/L (98-107) Carbon Dioxide Level 30 mmol/L (21-32) 28 mmol/L (21-32) Anion Gap 6 (6-14) 10 (6-14) Blood Urea Nitrogen 32 mg/dL (7-20) 28 mg/dL (7-20) Creatinine 1.1 mg/dL (0.6-1.0) 1.1 mg/dL (0.6-1.0) Estimated GFR (Cockcroft-Gault) 48.3 48.3 Glucose Level 79 mg/dL (70-99) 77 mg/dL (70-99) Calcium Level 7.8 mg/dL (8.5-10.1) 7.9 mg/dL (8.5-10.1) White Blood Count 4.5 x10^3/uL (4.0-11.0) Red Blood Count 2.72 x10^6/uL (3.50-5.40) Hemoglobin 9.9 g/dL (12.0-15.5) Hematocrit 29.4 % (36.0-47.0) Mean Corpuscular Volume 108 fL (79-100) Mean Corpuscular Hemoglobin 37 pg (25-35) Mean Corpuscular Hemoglobin Concent 34 g/dL (31-37) Red Cell Distribution Width 17.4 % (11.5-14.5) Platelet Count 196 x10^3/uL (140-400) Neutrophils (%) (Auto) 69 % (31-73) Lymphocytes (%) (Auto) 21 % (24-48) Monocytes (%) (Auto) 7 % (0-9) Eosinophils (%) (Auto) 1 % (0-3) Basophils (%) (Auto) 1 % (0-3) Neutrophils # (Auto) 3.1 x10^3uL (1.8-7.7) Lymphocytes # (Auto) 1.0 x10^3/uL (1.0-4.8) Monocytes # (Auto) 0.3 x10^3/uL (0.0-1.1) Eosinophils # (Auto) 0.0 x10^3/uL (0.0-0.7) Basophils # (Auto) 0.0 x10^3/uL (0.0-0.2) Laboratory Tests Test 07/09/17 04:25 Prothrombin Time 25.1 SEC (11.7-14.0) Prothromb Time International Ratio 2.5 (0.8-1.1) Sodium Level 141 mmol/L (136-145) Potassium Level 3.8 mmol/L (3.5-5.1) Chloride Level 103 mmol/L (98-107) Carbon Dioxide Level 28 mmol/L (21-32) Anion Gap 10 (6-14) Blood Urea Nitrogen 28 mg/dL (7-20) Creatinine 1.1 mg/dL (0.6-1.0) Estimated GFR (Cockcroft-Gault) 48.3 Glucose Level 77 mg/dL (70-99) Calcium Level 7.9 mg/dL (8.5-10.1) Medications Current Medications Furosemide (Lasix) 80 mg 1X ONCE IVP Last administered on 07/07/17 13:19; Start 07/07/17 at 13:15; Stop 07/07/17 at 13:16; Status DC Ondansetron HCl (Zofran) 4 mg PRN Q8HRS PRN IV NAUSEA/VOMITING; Start 07/07/17 at 13:30; Stop 07/08/17 at 13:29; Status DC Fentanyl Citrate (Fentanyl 2ml Vial) 50 mcg PRN Q1HR PRN IV PAIN; Start at 13:30; Stop 07/08/17 at 13:29; Status DC Allopurinol (Zyloprim) 100 mg DAILY PO Last administered on 07/09/17 09:10; Start 07/07/17 at 16:00 Alprazolam (Xanax) 0.25 mg PRN BID PRN PO ANXIETY / AGITATION Last administered on 07/09/17 05:42; Start 07/07/17 at 15:30 Furosemide (Lasix) 40 mg DAILY PO ; Start 07/07/17 at 16:00; Stop 07/07/17 at 16 :46; Status DC Guaifenesin (MUCINEX ER with DM) 1 tab PRN Q12HRS PRN PO COUGH; Start 07/07/17 at 15:30 Levothyroxine Sodium (Synthroid) 100 mcg DAILY06 PO Last administered on 05:42; Start 07/08/17 at 06:00 Methotrexate (Rheumatrex) 17.5 mg We PO ; Start 07/10/17 at 09:00 Potassium Chloride (Klor-Con) 20 meq BIDWMEALS PO Last administered on 08:59; Start 07/07/17 at 17:00; Stop 07/08/17 at 17:00; Status DC Propafenone HCl (Rythmol) 150 mg BID PO Last administered on 07/09/17 09:10; Start 07/07/17 at 21:00 Spironolactone (Aldactone) 25 mg DAILY PO Last administered on 07/07/17 16:12 ; Start 07/07/17 at 16:00; Stop 07/07/17 at 16:58; Status DC Tramadol HCl (Ultram) 50 mg PRN Q6HRS PRN PO PAIN Last administered on 05:42; Start 07/07/17 at 15:30 Trazodone HCl (Desyrel) 25 mg HS PO Last administered on 07/08/17 21:46; Start 07/07/17 at 21:00 Warfarin Sodium (Coumadin) 6 mg DAILY16 PO Last administered on 07/08/17 17:43 ; Start 07/07/17 at 16:00 Non-Formulary Medication 1,000 mg BID PO ; Start 07/07/17 at 21:00; Status UNV Calcium/Vitamin D (Oscal D 500mg/ 200uts) 1 tab BIDWMEALS PO Last administered on 07/09/17 09:08; Start 07/07/17 at 17:00 Cetirizine HCl (ZyrTEC) 10 mg PRN DAILY PRN PO ALLERGIE; Start 07/08/17 at 09: 00 Fish Oil (Fish Oil) 1,000 mg DAILY PO Last administered on 07/09/17 09:07; Start 07/08/17 at 09:00 Pantoprazole Sodium (Protonix) 40 mg DAILYAC PO Last administered on 07/09/17 09:10; Start 07/08/17 at 07:30 Paroxetine HCl (Paxil) 20 mg DAILY PO Last administered on 07/09/17 09:10; Start 07/07/17 at 16:00 Artificial Tears (Artificial Tears) 1 drop DAILY OU ; Start 07/08/17 at 09:00 Hydroxychloroquine Sulfate (Plaquenil) 200 mg DAILY08 PO Last administered on 09:07; Start 07/08/17 at 08:00 Ferrous Sulfate (Feosol) 325 mg DAILYWBKFT PO Last administered on 07/09/17 09 :10; Start 07/08/17 at 08:00 Warfarin Sodium (Coumadin Per Physician) 1 each PRN DAILY PRN MC SEE COMMENTS Last administered on 07/09/17 08:27; Start 07/07/17 at 15:45 Furosemide (Lasix) 80 mg BID92 PO Last administered on 07/09/17 09:10; Start 07/08/17 at 09:00 Spironolactone (Aldactone) 50 mg DAILY PO Last administered on 07/09/17 09:09 ; Start 07/08/17 at 09:00 Potassium Chloride (Klor-Con) 20 meq TIDWMEALS PO Last administered on 21:46; Start 07/08/17 at 17:00 Acetaminophen (Tylenol) 650 mg PRN Q6HRS PRN PO Pain Last administered on 01:50; Start 07/09/17 at 01:45 Potassium Chloride (Klor-Con) 20 meq 1X ONCE PO Last administered on 09:11; Start 07/09/17 at 07:45; Stop 07/09/17 at 07:46; Status DC Active Scripts Active Lasix (Furosemide) 40 Mg Tablet 1 Tab PO DAILY Aldactone (Spironolactone) 25 Mg Tablet 1 Tab PO DAILY Klor-Con M20 (Potassium Chloride) 20 Meq Tab.er.prt 20 Meq PO BIDWMEALS Reported Methotrexate (Methotrexate Sodium) 2.5 Mg Tablet 7 Tab PO SATURDAY [hydroxyl-chloroquine] 200 Mg PO DAILY08 Calcium + Vitamin D Tablet (Calcium Carbonate/Vitamin D3) 1 Each Tablet 1 Each PO BID Claritin (Loratadine) 10 Mg Tablet 1 Tab PO DAILY PRN Coumadin (Warfarin Sodium) 6 Mg Tablet 6 Mg PO ,,,, Acetaminophen 500 Mg Tablet 1 Tab PO PRN Q6HRS PRN Mucinex Dm Er 600-30 Mg Tablet (Guaifenesin/Dextromethorphan) 1 Each Tab.er.12h 1 Tab PO PRN Q12HRS Trazodone Hcl 50 Mg Tablet 25 Mg PO HS Propafenone Hcl 150 Mg Tablet 150 Mg PO BID Systane 0.3-0.4% Eye Drops (Propylene Glycol/Peg 400/Pf) 1 Each Droperette 1 Each OP DAILY Xanax (Alprazolam) 0.25 Mg Tablet 1 Tab PO PRN BID PRN Biotin 1 Mg Capsule 1,000 Mg PO BID [lutein] 1 Tab BID [Iron ] 1 Tab DAILY Omeprazole 40 Mg Capsule.dr 40 Mg PO DAILY Tramadol Hcl 50 Mg Tablet 50 Mg PO PRN Q6HRS PRN Fish Oil 1,000 Mg Softgel ([place]-3 Fatty Acids/Fish Oil) 1 Each Capsule 1 Each PO DAILY Allopurinol 100 Mg Tablet 100 Mg PO DAILY Paxil (Paroxetine Hcl) 40 Mg Tablet 20 Mg PO DAILY Levothyroxine Sodium 100 Mcg Tablet 100 Mcg PO DAILY Vitals/I & O Vital Sign - Last 24 Hours 07/08/17 07/08/17 07/08/17 07/08/17 11:00 15:00 15:33 19:40 Temp 98.2 97.8 98.2 97.8 Pulse 80 84 Resp 18 16 B/P (MAP) 109/66 (80) 100/64 (76) Pulse Ox 100 100 O2 Delivery Room Air Room Air Room Air 07/08/17 07/08/17 07/08/17 07/09/17 19:43 21:46 22:48 02:00 Temp 98.3 97.8 98.3 98.3 97.8 98.3 Pulse 87 87 80 78 Resp 16 16 18 B/P (MAP) 97/62 (74) 97/62 94/59 (71) 100/61 (74) Pulse Ox 96 98 100 O2 Delivery Room Air Room Air Room Air 07/09/17 07/09/17 07/09/17 06:35 07:19 09:10 Temp 97.6 97.6 Pulse 76 76 Resp 18 B/P (MAP) 109/62 (78) 109/62 Pulse Ox 98 O2 Delivery Room Air Room Air Intake and Output 07/08/17 07/08/17 07/09/17 15:00 23:00 07:00 Intake Total 1240 ml 1020 ml Output Total 2225 ml 100 ml Balance -985 ml 920 ml BRITTA MARTINEZ III DO Jul 09, 2017 09:54
[2017-07-09] MEDS ORDERED: POTA20TA82 PO (10:01)
--- NOTE | 2017-07-09 10:42 | PDOC ---
PROGRESS NOTES Subjective Subjective Pt is feeling good. No further complaints. Objective Objective Gen: pt resting in bed. No acute distress or pain Neck: no JVD Card: no new heart sounds Resp: clear to auscultation Neuro: pt awake, alert and oriented Extremities: warm to touch. Edema is improving. Vital Signs Date Time Temp Pulse Resp B/P (MAP) Pulse Ox O2 Delivery O2 Flow Rate FiO2 07/09/17 09:10 76 109/62 07/09/17 08:00 Room Air 07/09/17 07:19 97.6 18 98 97.6 Intake and Output 07/09/17 07:00 Intake Total 2260 ml Output Total 2325 ml Balance -65 ml Intake Oral 2260 ml Output Urine Total 2325 ml # Voids 1 Assessment Assessment Pt is stable cardiac thomson. Continue current medical treatment. Comment Review of Relevant I have reviewed the following items leila (where applicable) has been applied. Labs Laboratory Tests Test 07/07/17 11:50 07/07/17 12:05 07/07/17 17:32 07/08/17 00:15 Urine Color Yellow Urine Clarity Clear Urine pH 6.0 Urine Specific [place] <=1.005 Urine Protein Negative mg/dL (NEG-TRACE) Urine Glucose (UA) Negative mg/dL (NEG) Urine Ketones (Stick) Negative mg/dL (NEG) Urine Blood Negative (NEG) Urine Nitrite Negative (NEG) Urine Bilirubin Negative (NEG) Urine Urobilinogen Dipstick 0.2 mg/dL (0.2 mg/dL) Urine Leukocyte Esterase Negative (NEG) Urine RBC 0 /HPF (0-2) Urine WBC 0 /HPF (0-4) Urine Squamous Epithelial Cells Occ /LPF Urine Bacteria Few /HPF (0-FEW) Urine Hyaline Casts Few /HPF White Blood Count 4.8 x10^3/uL (4.0-11.0) Red Blood Count 3.23 x10^6/uL (3.50-5.40) Hemoglobin 11.7 g/dL (12.0-15.5) Hematocrit 34.7 % (36.0-47.0) Mean Corpuscular Volume 108 fL (79-100) Mean Corpuscular Hemoglobin 36 pg (25-35) Mean Corpuscular Hemoglobin Concent 34 g/dL (31-37) Red Cell Distribution Width 17.5 % (11.5-14.5) Platelet Count 223 x10^3/uL (140-400) Neutrophils (%) (Auto) 77 % (31-73) Lymphocytes (%) (Auto) 16 % (24-48) Monocytes (%) (Auto) 5 % (0-9) Eosinophils (%) (Auto) 1 % (0-3) Basophils (%) (Auto) 1 % (0-3) Neutrophils # (Auto) 3.7 x10^3uL (1.8-7.7) Lymphocytes # (Auto) 0.8 x10^3/uL (1.0-4.8) Monocytes # (Auto) 0.3 x10^3/uL (0.0-1.1) Eosinophils # (Auto) 0.0 x10^3/uL (0.0-0.7) Basophils # (Auto) 0.0 x10^3/uL (0.0-0.2) Prothrombin Time 27.4 SEC (11.7-14.0) Prothromb Time International Ratio 2.8 (0.8-1.1) Activated Partial Thromboplast Time 33 SEC (24-38) Sodium Level 137 mmol/L (136-145) Potassium Level 4.6 mmol/L (3.5-5.1) Chloride Level 103 mmol/L (98-107) Carbon Dioxide Level 25 mmol/L (21-32) Anion Gap 9 (6-14) Blood Urea Nitrogen 33 mg/dL (7-20) Creatinine 1.2 mg/dL (0.6-1.0) Estimated GFR (Cockcroft-Gault) 43.7 BUN/Creatinine Ratio 28 (6-20) Glucose Level 85 mg/dL (70-99) Calcium Level 8.4 mg/dL (8.5-10.1) Total Bilirubin 0.4 mg/dL (0.2-1.0) Aspartate Amino Transf (AST/SGOT) 255 U/L (15-37) Alanine Aminotransferase (ALT/SGPT) 446 U/L (14-59) Alkaline Phosphatase 127 U/L (46-116) Troponin I Quantitative 0.059 ng/mL (0.000-0.055) 0.067 ng/mL (0.000-0.055) 0.080 ng/mL (0.000-0.055) OW-Iuw-U-Type Natriuretic Peptide 9992 pg/mL (0-449) Total Protein 6.9 g/dL (6.4-8.2) Albumin 3.3 g/dL (3.4-5.0) Albumin/Globulin Ratio 0.9 (1.0-1.7) Test 07/08/17 07:00 07/08/17 07:05 07/09/17 04:25 Prothrombin Time 24.8 SEC (11.7-14.0) 25.1 SEC (11.7-14.0) Prothromb Time International Ratio 2.4 (0.8-1.1) 2.5 (0.8-1.1) Sodium Level 138 mmol/L (136-145) 141 mmol/L (136-145) Potassium Level 3.6 mmol/L (3.5-5.1) 3.8 mmol/L (3.5-5.1) Chloride Level 102 mmol/L (98-107) 103 mmol/L (98-107) Carbon Dioxide Level 30 mmol/L (21-32) 28 mmol/L (21-32) Anion Gap 6 (6-14) 10 (6-14) Blood Urea Nitrogen 32 mg/dL (7-20) 28 mg/dL (7-20) Creatinine 1.1 mg/dL (0.6-1.0) 1.1 mg/dL (0.6-1.0) Estimated GFR (Cockcroft-Gault) 48.3 48.3 Glucose Level 79 mg/dL (70-99) 77 mg/dL (70-99) Calcium Level 7.8 mg/dL (8.5-10.1) 7.9 mg/dL (8.5-10.1) White Blood Count 4.5 x10^3/uL (4.0-11.0) Red Blood Count 2.72 x10^6/uL (3.50-5.40) Hemoglobin 9.9 g/dL (12.0-15.5) Hematocrit 29.4 % (36.0-47.0) Mean Corpuscular Volume 108 fL (79-100) Mean Corpuscular Hemoglobin 37 pg (25-35) Mean Corpuscular Hemoglobin Concent 34 g/dL (31-37) Red Cell Distribution Width 17.4 % (11.5-14.5) Platelet Count 196 x10^3/uL (140-400) Neutrophils (%) (Auto) 69 % (31-73) Lymphocytes (%) (Auto) 21 % (24-48) Monocytes (%) (Auto) 7 % (0-9) Eosinophils (%) (Auto) 1 % (0-3) Basophils (%) (Auto) 1 % (0-3) Neutrophils # (Auto) 3.1 x10^3uL (1.8-7.7) Lymphocytes # (Auto) 1.0 x10^3/uL (1.0-4.8) Monocytes # (Auto) 0.3 x10^3/uL (0.0-1.1) Eosinophils # (Auto) 0.0 x10^3/uL (0.0-0.7) Basophils # (Auto) 0.0 x10^3/uL (0.0-0.2) Laboratory Tests Test 07/09/17 04:25 Prothrombin Time 25.1 SEC (11.7-14.0) Prothromb Time International Ratio 2.5 (0.8-1.1) Sodium Level 141 mmol/L (136-145) Potassium Level 3.8 mmol/L (3.5-5.1) Chloride Level 103 mmol/L (98-107) Carbon Dioxide Level 28 mmol/L (21-32) Anion Gap 10 (6-14) Blood Urea Nitrogen 28 mg/dL (7-20) Creatinine 1.1 mg/dL (0.6-1.0) Estimated GFR (Cockcroft-Gault) 48.3 Glucose Level 77 mg/dL (70-99) Calcium Level 7.9 mg/dL (8.5-10.1) Medications Current Medications Furosemide (Lasix) 80 mg 1X ONCE IVP Last administered on 07/07/17t 13:19; Start 07/07/17 at 13:15; Stop 07/07/17 at 13:16; Status DC Ondansetron HCl (Zofran) 4 mg PRN Q8HRS PRN IV NAUSEA/VOMITING; Start 07/07/17 at 13:30; Stop 07/08/17 at 13:29; Status DC Fentanyl Citrate (Fentanyl 2ml Vial) 50 mcg PRN Q1HR PRN IV PAIN; Start at 13:30; Stop 07/08/17 at 13:29; Status DC Allopurinol (Zyloprim) 100 mg DAILY PO Last administered on 07/09/17 09:10; Start 07/07/17 at 16:00 Alprazolam (Xanax) 0.25 mg PRN BID PRN PO ANXIETY / AGITATION Last administered on 07/09/17 05:42; Start 07/07/17 at 15:30 Furosemide (Lasix) 40 mg DAILY PO ; Start 07/07/17 at 16:00; Stop 07/07/17 at 16 :46; Status DC Guaifenesin (MUCINEX ER with DM) 1 tab PRN Q12HRS PRN PO COUGH; Start 07/07/17 at 15:30 Levothyroxine Sodium (Synthroid) 100 mcg DAILY06 PO Last administered on 05:42; Start 07/08/17 at 06:00 Methotrexate (Rheumatrex) 17.5 mg We PO ; Start 07/10/17 at 09:00 Potassium Chloride (Klor-Con) 20 meq BIDWMEALS PO Last administered on 08:59; Start 07/07/17 at 17:00; Stop 07/08/17 at 17:00; Status DC Propafenone HCl (Rythmol) 150 mg BID PO Last administered on 07/09/17 09:10; Start 07/07/17 at 21:00 Spironolactone (Aldactone) 25 mg DAILY PO Last administered on 07/07/17 16:12 ; Start 07/07/17 at 16:00; Stop 07/07/17 at 16:58; Status DC Tramadol HCl (Ultram) 50 mg PRN Q6HRS PRN PO PAIN Last administered on 05:42; Start 07/07/17 at 15:30 Trazodone HCl (Desyrel) 25 mg HS PO Last administered on 07/08/17 21:46; Start 07/07/17 at 21:00 Warfarin Sodium (Coumadin) 6 mg DAILY16 PO Last administered on 07/08/17 17:43 ; Start 07/07/17 at 16:00 Non-Formulary Medication 1,000 mg BID PO ; Start 07/07/17 at 21:00; Status UNV Calcium/Vitamin D (Oscal D 500mg/ 200uts) 1 tab BIDWMEALS PO Last administered on 07/09/17 09:08; Start 07/07/17 at 17:00 Cetirizine HCl (ZyrTEC) 10 mg PRN DAILY PRN PO ALLERGIE; Start 07/08/17 at 09: 00 Fish Oil (Fish Oil) 1,000 mg DAILY PO Last administered on 07/09/17 09:07; Start 07/08/17 at 09:00 Pantoprazole Sodium (Protonix) 40 mg DAILYAC PO Last administered on 07/09/17 09:10; Start 07/08/17 at 07:30 Paroxetine HCl (Paxil) 20 mg DAILY PO Last administered on 07/09/17 09:10; Start 07/07/17 at 16:00 Artificial Tears (Artificial Tears) 1 drop DAILY OU ; Start 07/08/17 at 09:00 Hydroxychloroquine Sulfate (Plaquenil) 200 mg DAILY08 PO Last administered on 09:07; Start 07/08/17 at 08:00 Ferrous Sulfate (Feosol) 325 mg DAILYWBKFT PO Last administered on 07/09/17 09 :10; Start 07/08/17 at 08:00 Warfarin Sodium (Coumadin Per Physician) 1 each PRN DAILY PRN MC SEE COMMENTS Last administered on 07/09/17 08:27; Start 07/07/17 at 15:45 Furosemide (Lasix) 80 mg BID92 PO Last administered on 07/09/17 09:10; Start 07/08/17 at 09:00 Spironolactone (Aldactone) 50 mg DAILY PO Last administered on 07/09/17 09:09 ; Start 07/08/17 at 09:00 Potassium Chloride (Klor-Con) 20 meq TIDWMEALS PO Last administered on 21:46; Start 07/08/17 at 17:00 Acetaminophen (Tylenol) 650 mg PRN Q6HRS PRN PO Pain Last administered on 01:50; Start 07/09/17 at 01:45 Potassium Chloride (Klor-Con) 20 meq 1X ONCE PO Last administered on 09:11; Start 07/09/17 at 07:45; Stop 07/09/17 at 07:46; Status DC Active Scripts Active Lasix (Furosemide) 40 Mg Tablet 1 Tab PO DAILY Aldactone (Spironolactone) 25 Mg Tablet 1 Tab PO DAILY Reported Potassium Chloride 20 Meq Tablet.er 20 Meq PO TID Methotrexate (Methotrexate Sodium) 2.5 Mg Tablet 7 Tab PO SATURDAY [hydroxyl-chloroquine] 200 Mg PO DAILY08 Calcium + Vitamin D Tablet (Calcium Carbonate/Vitamin D3) 1 Each Tablet 1 Each PO BID Claritin (Loratadine) 10 Mg Tablet 1 Tab PO DAILY PRN Coumadin (Warfarin Sodium) 6 Mg Tablet 6 Mg PO ,,,, Acetaminophen 500 Mg Tablet 1 Tab PO PRN Q6HRS PRN Mucinex Dm Er 600-30 Mg Tablet (Guaifenesin/Dextromethorphan) 1 Each Tab.er.12h 1 Tab PO PRN Q12HRS Trazodone Hcl 50 Mg Tablet 25 Mg PO HS Propafenone Hcl 150 Mg Tablet 150 Mg PO BID Systane 0.3-0.4% Eye Drops (Propylene Glycol/Peg 400/Pf) 1 Each Droperette 1 Each OP DAILY Xanax (Alprazolam) 0.25 Mg Tablet 1 Tab PO PRN BID PRN Biotin 1 Mg Capsule 1,000 Mg PO BID [lutein] 1 Tab BID [Iron ] 1 Tab DAILY Omeprazole 40 Mg Capsule.dr 40 Mg PO DAILY Tramadol Hcl 50 Mg Tablet 50 Mg PO PRN Q6HRS PRN Fish Oil 1,000 Mg Softgel ([place]-3 Fatty Acids/Fish Oil) 1 Each Capsule 1 Each PO DAILY Allopurinol 100 Mg Tablet 100 Mg PO DAILY Paxil (Paroxetine Hcl) 40 Mg Tablet 20 Mg PO DAILY Levothyroxine Sodium 100 Mcg Tablet 100 Mcg PO DAILY Vitals/I & O Vital Sign - Last 24 Hours 07/08/17 07/08/17 07/08/17 07/08/17 11:00 15:00 15:33 19:40 Temp 98.2 97.8 98.2 97.8 Pulse 80 84 Resp 18 16 B/P (MAP) 109/66 (80) 100/64 (76) Pulse Ox 100 100 O2 Delivery Room Air Room Air Room Air 07/08/17 07/08/17 07/08/17 07/09/17 19:43 21:46 22:48 02:00 Temp 98.3 97.8 98.3 98.3 97.8 98.3 Pulse 87 87 80 78 Resp 16 16 18 B/P (MAP) 97/62 (74) 97/62 94/59 (71) 100/61 (74) Pulse Ox 96 98 100 O2 Delivery Room Air Room Air Room Air 07/09/17 07/09/17 07/09/17 07/09/17 06:35 07:19 08:00 09:10 Temp 97.6 97.6 Pulse 76 76 Resp 18 B/P (MAP) 109/62 (78) 109/62 Pulse Ox 98 O2 Delivery Room Air Room Air Room Air Intake and Output 07/08/17 07/08/17 07/09/17 15:00 23:00 07:00 Intake Total 1240 ml 1020 ml Output Total 2225 ml 100 ml Balance -985 ml 920 ml CJ DIAL MD Jul 09, 2017 10:42
[2017-07-10] MEDS ORDERED: METHOTREXATE SODIUM 2.5 MG TABLET PO SCH (09:00)
== END 2017-07-09 11:50 | disposition home health service (06) | DRG 291 ==
LOC: ER 11:42 → 2 SOUTH 13:03
PROVIDERS: ADMIT Internal Medicine; ATTEND Internal Medicine
DX: I13.0 Hypertensive heart and chronic kidney disease with heart failure and stage 1 through stage 4 chronic kidney disease, or unspecified chronic kidney disease (principal); I50.43 Acute on chronic combined systolic (congestive) and diastolic (congestive) heart failure; E44.0 Moderate protein-calorie malnutrition; I48.91 Unspecified atrial fibrillation; N18.3 Chronic kidney disease, stage 3 (moderate); F32.9 Major depressive disorder, single episode, unspecified; E03.9 Hypothyroidism, unspecified; Z90.2 Acquired absence of lung [part of]; I34.0 Nonrheumatic mitral (valve) insufficiency; I35.1 Nonrheumatic aortic (valve) insufficiency; E78.5 Hyperlipidemia, unspecified; I25.10 Atherosclerotic heart disease of native coronary artery without angina pectoris; K21.9 Gastro-esophageal reflux disease without esophagitis; D63.8 Anemia in other chronic diseases classified elsewhere; M06.9 Rheumatoid arthritis, unspecified; M10.9 Gout, unspecified; Z79.01 Long term (current) use of anticoagulants; Z85.118 Personal history of other malignant neoplasm of bronchus and lung; Z90.49 Acquired absence of other specified parts of digestive tract; Z86.73 Personal history of transient ischemic attack (TIA), and cerebral infarction without residual deficits; Z95.0 Presence of cardiac pacemaker; Z68.20 Body mass index [BMI] 20.0-20.9, adult; Z88.6 Allergy status to analgesic agent; Z88.8 Allergy status to other drugs, medicaments and biological substances
CPT/HCPCS: 36415; 71010; 80048; 80053; 81001; 83880; 84484; 85025; 85610; 85730; 93005; 96374; J1940; 99285-25

== ENCOUNTER → 2017-07-26 | Outpatient (CLI) | payer MEDICARE ==
[2017-07-09 09:10] VITALS: BP 109/62
[~2017-07-26] MED LIST changes: +METO5TAB4; +POTA20TA82 PO
--- NOTE | 2017-07-26 12:14 | RAD ---
Exam performed: CT chest without contrast. History: Lung cancer. Date of service: 07/26/17 comparison: 06/26/17 Technique: Contiguous helical acquisitions are obtained through the chest without IV contrast. Sagittal and coronal reformatted images are obtained and reviewed. Findings: Postoperative changes of left upper lobectomy redemonstrated. Mild signs of volume loss in the left hemithorax are seen. Stable 4 mm noncalcified nodule in the right upper lobe. 2 mm nodule seen in the right lower lobe is less well-defined. There is a linear opacity in the posterior basal segment of the right lower lobe. Calcified granulomatous seen in the right middle and right lower lobe. There are no new nodules. Area of pleural-based scarring in the left lung base may be related to previous surgery. Previously seen subcutaneous emphysema along the right neck and right lateral chest wall is no longer visualized. Neck appears normal. Thyroid gland is symmetric. Lack of IV contrast limits evaluation of neck and intrathoracic great vessels, however they appear normal in course and caliber. Diffuse atheromatous aortic and coronary calcification pacemaker leads are in place. No mediastinal or hilar adenopathy is seen. The heart size is normal. Limited evaluation of the upper abdominal structures is essentially unremarkable. Multiple surgical clips are seen in the upper abdomen Interrogation of bone windows is unremarkable. Impression: Postoperative changes of left upper lobectomy. No evidence of pulmonary mass or new nodules identified. No convincing evidence of gross thoracic adenopathy noted. Stable cardiomegaly. PQRS Compliance Statement: One or more of the following individualized dose reduction techniques were utilized for this examination: 1. Automated exposure control 2. Adjustment of the mA and/or kV according to patient size 3. Use of iterative reconstruction technique
== END | disposition home or self-care (01) ==
LOC: CT 09:27
PROVIDERS: ATTEND Internal Medicine Pulmonary Disease
DX: C34.10 Malignant neoplasm of upper lobe, unspecified bronchus or lung (principal); R91.1 Solitary pulmonary nodule
CPT/HCPCS: 71250

== ENCOUNTER 2017-08-10 12:27 | Emergency (ER) | payer MEDICARE ==
[~2017-08-10] VITALS: Ht 157.5 cm; Wt 49.0 kg
[~2017-08-10 12:27] MED LIST changes: -GUAI-107 PO; +GUAI-108 PO; -PROP1DRO OP; +PROP1DRO6 OP
--- NOTE | 2017-08-10 13:12 | RAD ---
Right knee radiograph 08/10/2017 at 1239 hours Indication: Right knee injury Comparison: Bilateral knee radiograph 04/02/2016 Technique: 3 views the right knee are provided. Findings: There is anterolateral plate and screw fixation of the proximal tibia. There is no significant periprosthetic lucency or fracture. There is extensive prepatellar soft tissue swelling. No definite fracture is identified. There is moderate joint space narrowing of the knee joint compartment, progressed since 04/02/2016. There is remodeling of a remote fibular head fracture. There is mild osteopenia. Impression: Prepatellar soft tissue swelling without acute fracture or dislocation. Plate and screw fixation of proximal tibia without periprosthetic lucency or fracture.
--- NOTE | 2017-08-10 13:35 | PHYS DOC ---
Past Medical History Past Medical History: A-Fib, Anxiety, Cancer, CHF, Depression, GERD, Hypothyroid, Lung Disease, TIA Additional Past Medical Histor: HISTORY OF LEFT LUNG CANCER Past Surgical History: Pacemaker, Other Additional Past Surgical Histo: Lt lung lobectomy, RT HIP, RT LEG, LT SHOULDER Alcohol Use: None Drug Use: None Adult General Chief Complaint Chief Complaint: TRAUMA ALERT HPI HPI Patient is a 77 year old female who presents with complaint of injury to the right knee after suffering a fall at home. Patient states that at approximately 1130 today the patient had an accidental fall after losing her balance in her own kitchen and fell to the floor. Patient states that she hurt her right knee and right forearm. EMS was called to the scene shortly after the injury and patient was brought in to the emergency department for evaluation. EMS placed the patient in a splint as the patient had an avulsion injury over the right knee and they were concerned about possible open fracture. The patient states that she has minimal pain to her right knee at this time. Patient has had a previous femur injury with open reduction and internal fixation many years ago. The patient denies any loss of consciousness. Patient states that she does take Coumadin due to history of chronic A. fib. Patient rates her pain as 5 out of 10. The patient has not attempted to ambulate since her fall as she states she was told not to bear weight on her leg, however patient does state that she would like to attempt to ambulate. Review of Systems Review of Systems Constitutional: Denies fever or chills [] Eyes: Denies change in visual acuity, redness, or eye pain [] HENT: Denies nasal congestion or sore throat [] Respiratory: Denies cough or shortness of breath [] Cardiovascular: Denies chest pain or edema[] GI: Denies abdominal pain, nausea, vomiting, bloody stools or diarrhea [] : Denies dysuria or hematuria [] Musculoskeletal: Right knee pain[] Integument: Skin tear to right knee and right forearm[] Neurologic: Denies headache, focal weakness or sensory changes [] Current Medications Current Medications Current Medications Medications (Trade) Dose Ordered Sig/Jose Start Time Stop Time Status Last Admin Dose Admin Sodium Chloride 1,000 ml @ 1,000 mls/hr 1X ONCE 08/10/17 13:45 08/10/17 14:44 DC 08/10/17 14:13 1,000 MLS/HR Allergies Allergies Allergies Coded Allergies Type Severity Reaction Last Updated Verified adhesive Allergy Intermediate "Breaks out" 04/02/16 Yes albuterol Allergy Intermediate "CAN'T BREATHE" 04/02/16 Yes codeine Allergy Intermediate "Breaks out." 04/02/16 Yes oxycodone Allergy Intermediate Rash 04/02/16 Yes duloxetine Adverse Reaction Intermediate edema 04/02/16 Yes pregabalin Adverse Reaction Intermediate edema 04/02/16 Yes Physical Exam Physical Exam Constitutional: Alert, afebrile, no acute distress. [] HENT: Normocephalic, atraumatic, bilateral external ears normal, oropharynx moist, no oral exudates, nose normal. [] Eyes: PERRLA, EOMI, conjunctiva normal, no discharge. [] Neck: Normal range of motion, no tenderness, supple, no stridor. [] Cardiovascular:Heart rate regular rhythm, no murmur [] Lungs & Thorax: Bilateral breath sounds clear to auscultation [] Abdomen: Bowel sounds normal, soft, no tenderness, no masses, no pulsatile masses. [] Skin: Warm, dry, 5 cm avulsion/skin tear to medial anterior aspect of right knee with no intrusion apparent involving the joint space, 3 cm skin tear to medial aspect of right forearm. [] Back: No tenderness, no CVA tenderness. [] Extremities: Mild localized tenderness near skin tear of right knee, no lateral joint space tenderness, no anterior tibial tenderness, no cyanosis, no clubbing , ROM intact, no edema. [] Neurologic: Alert and oriented X 3, normal motor function, normal sensory function, no focal deficits noted. [] Current Patient Data Vital Signs Vital Signs Date Time Temp Pulse Resp B/P (MAP) Pulse Ox O2 Delivery O2 Flow Rate FiO2 08/10/17 14:49 60 20 121/61 (81) 100 Room Air 08/10/17 12:28 98.0 98.0 Lab Values Laboratory Tests Test 08/10/17 13:00 POC Hemoglobin 19.4 g/dL (12-15) H POC Hematocrit 57 % (36-40) H POC Sodium 135 mmol/L (135-145) POC Potassium 3.0 mmol/L (3.5-5.0) L POC Chloride 88 mmol/L (98-110) L POC Total CO2 36 mmol/L (23-32) H Anion Gap 15 mmol/L (6-14) H POC Blood Urea Nitrogen 52 mg/dL (8-26) H POC Creatinine 1.3 mg/dL (0.5-1.4) Glucose Level 98 mg/dL (70-99) POC Ionized Calcium (Ilana) 1.14 mmol/L (1.13-1.32) Laboratory Tests 08/10/17 13:00 EKG EKG Not performed[] Radiology/Procedures Radiology/Procedures [facility] [address] [place] [address] IMAGING REPORT Signed PATIENT: ZACKARY TAVARES ACCOUNT: [id number] : 1940 LOCATION: ER AGE: 77 SEX: F EXAM [id number]; [id number] STATUS: REG ER ORD. PHYSICIAN: CJ ROSS MD REASON: MECHANICAL FALL PROCEDURE: ELBOW RIGHT 2V; FOREARM RIGHT; HAND RIGHT 2V Right elbow, right forearm and right hand radiographs 08/10/2017 Indication: Mechanical fall Comparison: None available Technique: 2 views of the right elbow, 2 views of the right forearm and 2 views of the right hand are provided. Findings: Right elbow: There is no acute fracture or dislocation. Bone mineralization is within normal limits. Joint spaces are maintained. There is no elbow joint effusion. Right forearm: There is no acute fracture or dislocation. Bone mineralization is within normal limits. Right hand: Advanced degenerative changes are noted at the radiocarpal articulation with chondrocalcinosis of the triradiate cartilage. Joint space narrowing is noted within the carpal bones. There is moderate osteoarthrosis of the first carpometacarpal articulation. There is osseous sclerosis of the distal second metacarpal with cortical irregularity. There is flattening of the base of the proximal phalanx of the second digit. There is suggestion of ventral dislocation of the proximal phalanx on the second metacarpal. Advanced osteoarthrosis is noted involving the distal interphalangeal joint of the fourth digit. Diffuse joint space narrowing is noted within the hand. Impression: 1. No acute fracture or dislocation involving the right elbow and right forearm. 2. There is anterior dislocation of the metacarpophalangeal joint. Erosive changes of the distal second metacarpal with associated sclerosis could be seen in setting of chronic infection or osteomyelitis. Advanced erosive osteoarthrosis may have similar appearance. DICTATED and SIGNED BY: LASHAE GRIFFIN MD DATE: 08/10/171515 CC: JENNIFER LEON MD; CJ ROSS MD; CHRISTIAN POSADA MD ~ [facility] [address] [place] [address] IMAGING REPORT Signed PATIENT: ZACKRAY TAVARES ACCOUNT: [id number] : 1940 LOCATION: ER AGE: 77 SEX: F EXAM STATUS: REG ER ORD. PHYSICIAN: JENNIFER LEON MD REASON: fall, mild head injury, currently on Coumadin PROCEDURE: CT HEAD AND CERVICAL SPINE WO CT head without contrast 08/10/2017 Indication: Fall, head injury on Coumadin Comparison: CT cervical spine 04/03/2016, brain MRI 02/12/2014, cervical spine radiograph 06/19/2017 Technique: Multiple axial noncontrast CT images of the head were obtained from the skull base through the vertex. Multiple noncontrast CT images of the cervical spine were obtained. Coronal and sagittal reformats are provided. Findings: Head: The ventricles, sulci and basal cisterns are within normal limits. Low-attenuation in the periventricular white matter is compatible with mild chronic small vessel ischemic changes. Mayo-white matter differentiation is normal. There is no acute intracranial hemorrhage. There is no mass, mass effect or midline shift. Posterior fossa is within normal limits. Sellar and suprasellar cistern appear normal. Orbits are normal in appearance. Paranasal sinuses are well aerated. Mastoid air cells are well aerated. Left mastoid air cells are underpneumatized. Scalp and calvaria are normal. Cervical spine: There is grade 1 anterolisthesis of C4 on C5 and C5 on C6. There is minimal retrolisthesis of C6 on C7. There is disc height loss with endplate sclerosis and subchondral cystic changes at C6-C7. The atlantoaxial articulation is narrowed with mild degenerative changes. Previous cervical junction is normal. There is no acute fracture. Thyroid gland is normal. Paraspinal soft tissues are within normal limits. Visualized portions of the upper lungs are clear. Impression: There is no acute intracranial hemorrhage. Grade 1 anterolisthesis of C4 on C5 and C5 on C6. Findings appear chronic and present when compared to radiographs from 06/19/2017. However if there is concern of ligamentous injury, further evaluation with MRI cervical spine may be of benefit. No acute fracture is identified. PQRS Compliance Statement: One or more of the following individualized dose reduction techniques were utilized for this examination: 1. Automated exposure control 2. Adjustment of the mA and/or kV according to patient size 3. Use of iterative reconstruction technique DICTATED and SIGNED BY: LASHAE GRIFFIN MD DATE: 08/10/17 1412 CC: JENNIFER LEON MD; CHRISTIAN POSADA MD ~ [facility] [address] [place], [place] [id number] IMAGING REPORT Signed PATIENT: ZACKARY TAVARES ACCOUNT: [id number] : 1940 LOCATION: ER AGE: 77 SEX: F EXAM STATUS: PRE ER ORD. PHYSICIAN: JENNIFER LEON MD REASON: right knee injury PROCEDURE: KNEE RIGHT 3V Right knee radiograph 08/10/2017 at 1239 hours Indication: Right knee injury Comparison: Bilateral knee radiograph 04/02/2016 Technique: 3 views the right knee are provided. Findings: There is anterolateral plate and screw fixation of the proximal tibia. There is no significant periprosthetic lucency or fracture. There is extensive prepatellar soft tissue swelling. No definite fracture is identified. There is moderate joint space narrowing of the knee joint compartment, progressed since 04/02/2016. There is remodeling of a remote fibular head fracture. There is mild osteopenia. Impression: Prepatellar soft tissue swelling without acute fracture or dislocation. Plate and screw fixation of proximal tibia without periprosthetic lucency or fracture. DICTATED and SIGNED BY: LASHAE GRIFFIN MD DATE: 08/10/17 9509 CC: JENNIFER LEON MD; CHRISTIAN POSADA MD ~ [] Course & Med Decision Making Course & Med Decision Making Pertinent Labs and Imaging studies reviewed. (See chart for details) Patient has evidence of skin tears to the right knee and right forearm. No acute fractures were noted on imaging. The patient was noted to have a dislocation at the second MCP joint, however patient has no pain at this time and states that she has baseline function and attributes the potential findings to her long time degenerative arthritis. I do not feel that this is an acute dislocation of the joint and that these findings are likely chronic. The patient was found to have a BUN of 50 with a mildly elevated creatinine at 1.3. These findings appear consistent with dehydration. The patient was given 1 L of IV fluids in the emergency department. The patient was able to ambulate independently with him on faltering gait while in the emergency department and patient states that she does not want stay in the hospital but would prefer to go home. I spoke with the patient's imaging technologist, Dr. Ross, who stated that he would be comfortable with the patient following up in the next 2-3 days for reevaluation. Advised return emergency department for any worsening symptoms. Patient also referred to [facility] for continued follow-up of her skin tears. Patient voiced understanding and in agreement with treatment plan. Dragon Disclaimer Dragon Disclaimer This electronic medical record was generated, in whole or in part, using a voice recognition dictation system. Departure Departure Impression: Primary Impression: Multiple skin tears Additional Impressions: Arthritis Dehydration Fall from standing Disposition: 01 HOME, SELF-CARE Condition: IMPROVED Referrals: CHRISTIAN POSADA MD (PCP) Patient Instructions: Dehydration, Adult, Fall Prevention and Home Safety, Skin Tear Care Additional Instructions: Follow-up with Dr. Posada in 2-3 days for reevaluation. Call the [facility] in 2 days to schedule follow-up in the next 2-3 days for continued care of your skin tears. Return to the emergency department for any worsening symptoms. Problem Qualifiers Additional Impressions: Fall from standing Encounter type: initial encounter Qualified Codes: W19.XXXA - Unspecified fall, initial encounter JENNIFER LEON MD Aug 10, 2017 13:35
[2017-08-10] MEDS ORDERED: IV NORMAL SALINE 1000ML BAG 1,000 ML IV ONE (13:45)
--- NOTE | 2017-08-10 14:21 | RAD ---
CT head without contrast 08/10/2017 Indication: Fall, head injury on Coumadin Comparison: CT cervical spine 04/03/2016, brain MRI 02/12/2014, cervical spine radiograph 06/19/2017 Technique: Multiple axial noncontrast CT images of the head were obtained from the skull base through the vertex. Multiple noncontrast CT images of the cervical spine were obtained. Coronal and sagittal reformats are provided. Findings: Head: The ventricles, sulci and basal cisterns are within normal limits. Low-attenuation in the periventricular white matter is compatible with mild chronic small vessel ischemic changes. Mayo-white matter differentiation is normal. There is no acute intracranial hemorrhage. There is no mass, mass effect or midline shift. Posterior fossa is within normal limits. Sellar and suprasellar cistern appear normal. Orbits are normal in appearance. Paranasal sinuses are well aerated. Mastoid air cells are well aerated. Left mastoid air cells are underpneumatized. Scalp and calvaria are normal. Cervical spine: There is grade 1 anterolisthesis of C4 on C5 and C5 on C6. There is minimal retrolisthesis of C6 on C7. There is disc height loss with endplate sclerosis and subchondral cystic changes at C6-C7. The atlantoaxial articulation is narrowed with mild degenerative changes. Previous cervical junction is normal. There is no acute fracture. Thyroid gland is normal. Paraspinal soft tissues are within normal limits. Visualized portions of the upper lungs are clear. Impression: There is no acute intracranial hemorrhage. Grade 1 anterolisthesis of C4 on C5 and C5 on C6. Findings appear chronic and present when compared to radiographs from 06/19/2017. However if there is concern of ligamentous injury, further evaluation with MRI cervical spine may be of benefit. No acute fracture is identified. PQRS Compliance Statement: One or more of the following individualized dose reduction techniques were utilized for this examination: 1. Automated exposure control 2. Adjustment of the mA and/or kV according to patient size 3. Use of iterative reconstruction technique
--- NOTE | 2017-08-10 15:23 | RAD ---
Right elbow, right forearm and right hand radiographs 08/10/2017 Indication: Mechanical fall Comparison: None available Technique: 2 views of the right elbow, 2 views of the right forearm and 2 views of the right hand are provided. Findings: Right elbow: There is no acute fracture or dislocation. Bone mineralization is within normal limits. Joint spaces are maintained. There is no elbow joint effusion. Right forearm: There is no acute fracture or dislocation. Bone mineralization is within normal limits. Right hand: Advanced degenerative changes are noted at the radiocarpal articulation with chondrocalcinosis of the triradiate cartilage. Joint space narrowing is noted within the carpal bones. There is moderate osteoarthrosis of the first carpometacarpal articulation. There is osseous sclerosis of the distal second metacarpal with cortical irregularity. There is flattening of the base of the proximal phalanx of the second digit. There is suggestion of ventral dislocation of the proximal phalanx on the second metacarpal. Advanced osteoarthrosis is noted involving the distal interphalangeal joint of the fourth digit. Diffuse joint space narrowing is noted within the hand. Impression: 1. No acute fracture or dislocation involving the right elbow and right forearm. 2. There is anterior dislocation of the metacarpophalangeal joint. Erosive changes of the distal second metacarpal with associated sclerosis could be seen in setting of chronic infection or osteomyelitis. Advanced erosive osteoarthrosis may have similar appearance.
[2017-08-10 15:49] VITALS: BP 108/53
[2017-08-14 13:25] LABS: ISTAT INR 1.2 (0.9-1.1); ISTAT PT 14.6 Sec (10.0-14.0)
== END 2017-08-10 15:49 | disposition home or self-care (01) ==
LOC: ER 12:27
DX: S81.011A Laceration without foreign body, right knee, initial encounter (principal); E86.0 Dehydration; M19.90 Unspecified osteoarthritis, unspecified site; M79.631 Pain in right forearm; I48.91 Unspecified atrial fibrillation; E03.9 Hypothyroidism, unspecified; K21.9 Gastro-esophageal reflux disease without esophagitis; I11.0 Hypertensive heart disease with heart failure; I50.9 Heart failure, unspecified; Z86.73 Personal history of transient ischemic attack (TIA), and cerebral infarction without residual deficits; Z88.5 Allergy status to narcotic agent; Z88.8 Allergy status to other drugs, medicaments and biological substances; Z95.0 Presence of cardiac pacemaker; Z79.01 Long term (current) use of anticoagulants; W18.39XA Other fall on same level, initial encounter; Y93.89 Activity, other specified; Y99.8 Other external cause status; Y92.89 Other specified places as the place of occurrence of the external cause
CPT/HCPCS: 70450; 72125; 73070; 73090; 73120; 73562; 80047; 96360; 99284; J7030; 85610

== ENCOUNTER → 2017-08-27 | Outpatient (CLI) | payer MEDICARE ==
[2017-08-19 11:00] VITALS: BP 114/60
[~2017-08-27] MED LIST changes: +CALC0.25; +CALC0.25 PO; +CEFP200T PO; +CEPH-263 PO; +DOXY100C2 PO; +FURO40TA4 PO; +LACT1CAP19 PO
== END | disposition home or self-care (01) ==
LOC: PMGWOUND 12:07
PROVIDERS: ATTEND Emergency Medicine Undersea and Hyperbaric Medicine
DX: E11.622 Type 2 diabetes mellitus with other skin ulcer (principal); L97.812 Non-pressure chronic ulcer of other part of right lower leg with fat layer exposed; E03.9 Hypothyroidism, unspecified; I48.91 Unspecified atrial fibrillation; M13.849 Other specified arthritis, unspecified hand; E11.22 Type 2 diabetes mellitus with diabetic chronic kidney disease; I13.0 Hypertensive heart and chronic kidney disease with heart failure and stage 1 through stage 4 chronic kidney disease, or unspecified chronic kidney disease; N18.3 Chronic kidney disease, stage 3 (moderate); I50.43 Acute on chronic combined systolic (congestive) and diastolic (congestive) heart failure; F41.9 Anxiety disorder, unspecified; K21.9 Gastro-esophageal reflux disease without esophagitis; E78.5 Hyperlipidemia, unspecified; F32.9 Major depressive disorder, single episode, unspecified; M06.9 Rheumatoid arthritis, unspecified; I25.10 Atherosclerotic heart disease of native coronary artery without angina pectoris; M81.0 Age-related osteoporosis without current pathological fracture; E66.01 Morbid (severe) obesity due to excess calories; Z68.20 Body mass index [BMI] 20.0-20.9, adult; Z95.0 Presence of cardiac pacemaker; Z79.01 Long term (current) use of anticoagulants; Z79.4 Long term (current) use of insulin; Z86.718 Personal history of other venous thrombosis and embolism; Z86.73 Personal history of transient ischemic attack (TIA), and cerebral infarction without residual deficits; Z85.118 Personal history of other malignant neoplasm of bronchus and lung; Z89.422 Acquired absence of other left toe(s); Z89.421 Acquired absence of other right toe(s); Z90.710 Acquired absence of both cervix and uterus; Z90.49 Acquired absence of other specified parts of digestive tract
CPT/HCPCS: 97597

== ENCOUNTER → 2017-09-09 | Outpatient (CLI) | payer MEDICARE ==
[2017-08-19 11:00] VITALS: BP 114/60
[~2017-09-09] MED LIST changes: -CALC0.25; -CALC0.25 PO; -CEFP200T PO; -CEPH-263 PO; -DOXY100C2 PO; -FURO40TA4 PO; -LACT1CAP19 PO
--- NOTE | 2017-09-09 13:13 | RAD ---
Right lower extremity venous duplex ultrasound 09/09/2017 Indication: [Right lower extremity swelling] Comparison study: [None] Discussion: Sonographic evaluation of the deep veins of right lower extremity was performed. This includes grayscale imaging and color duplex imaging with spectral analysis. Subcutaneous edema is noted throughout right lower extremity. Visualized deep veins of the right lower extremity are patent. No evidence of deep venous thrombosis is identified. Impression: No evidence of deep venous thrombosis involving the right lower extremity.
== END | disposition home or self-care (01) ==
LOC: PMGWOUND 10:09
PROVIDERS: ATTEND Emergency Medicine Undersea and Hyperbaric Medicine
DX: L97.112 Non-pressure chronic ulcer of right thigh with fat layer exposed (principal); E03.9 Hypothyroidism, unspecified; M19.90 Unspecified osteoarthritis, unspecified site; I48.91 Unspecified atrial fibrillation; Z85.828 Personal history of other malignant neoplasm of skin; Z86.718 Personal history of other venous thrombosis and embolism; Z90.710 Acquired absence of both cervix and uterus; I13.0 Hypertensive heart and chronic kidney disease with heart failure and stage 1 through stage 4 chronic kidney disease, or unspecified chronic kidney disease; N18.3 Chronic kidney disease, stage 3 (moderate); I50.43 Acute on chronic combined systolic (congestive) and diastolic (congestive) heart failure; F41.9 Anxiety disorder, unspecified; I25.10 Atherosclerotic heart disease of native coronary artery without angina pectoris; F32.9 Major depressive disorder, single episode, unspecified; E66.01 Morbid (severe) obesity due to excess calories; Z68.20 Body mass index [BMI] 20.0-20.9, adult
CPT/HCPCS: 93971; 97597

== ENCOUNTER → 2017-09-25 | Outpatient (CLI) | payer MEDICARE ==
[2017-08-19 11:00] VITALS: BP 114/60
== END | disposition home or self-care (01) ==
LOC: SPEC 11:59
PROVIDERS: ATTEND Ophthalmology
DX: E87.5 Hyperkalemia (principal); I10 Essential (primary) hypertension
CPT/HCPCS: 36415; 84132

== ENCOUNTER → 2017-10-10 | Outpatient (CLI) | payer MEDICARE ==
[2017-08-19 11:00] VITALS: BP 114/60
== END | disposition home or self-care (01) ==
LOC: PMGWOUND 09:22
PROVIDERS: ATTEND Emergency Medicine Undersea and Hyperbaric Medicine
DX: E11.622 Type 2 diabetes mellitus with other skin ulcer (principal); L97.812 Non-pressure chronic ulcer of other part of right lower leg with fat layer exposed; M81.0 Age-related osteoporosis without current pathological fracture; F41.9 Anxiety disorder, unspecified; I25.10 Atherosclerotic heart disease of native coronary artery without angina pectoris; K21.9 Gastro-esophageal reflux disease without esophagitis; E11.22 Type 2 diabetes mellitus with diabetic chronic kidney disease; I13.0 Hypertensive heart and chronic kidney disease with heart failure and stage 1 through stage 4 chronic kidney disease, or unspecified chronic kidney disease; N18.3 Chronic kidney disease, stage 3 (moderate); I50.43 Acute on chronic combined systolic (congestive) and diastolic (congestive) heart failure; E78.5 Hyperlipidemia, unspecified; F32.9 Major depressive disorder, single episode, unspecified; E66.01 Morbid (severe) obesity due to excess calories; M19.049 Primary osteoarthritis, unspecified hand; M06.9 Rheumatoid arthritis, unspecified; I48.91 Unspecified atrial fibrillation; E03.9 Hypothyroidism, unspecified; Z85.828 Personal history of other malignant neoplasm of skin; Z85.118 Personal history of other malignant neoplasm of bronchus and lung; Z86.718 Personal history of other venous thrombosis and embolism; Z86.73 Personal history of transient ischemic attack (TIA), and cerebral infarction without residual deficits; Z90.49 Acquired absence of other specified parts of digestive tract; Z90.710 Acquired absence of both cervix and uterus; Z89.422 Acquired absence of other left toe(s); Z89.421 Acquired absence of other right toe(s); Z79.01 Long term (current) use of anticoagulants; Z95.0 Presence of cardiac pacemaker; Z68.20 Body mass index [BMI] 20.0-20.9, adult; Z79.4 Long term (current) use of insulin
CPT/HCPCS: 97597

== ENCOUNTER 2017-10-19 20:52 | Inpatient (IN) | payer MEDICARE ==
[~2017-10-19] VITALS: Ht 157.5 cm; Wt 51.7 kg
[2017-10-19 21:19] LABS: BILIRUBIN,URINE NEGATIVE (NEG); GLUCOSE,URINE NEGATIVE (NEG); NITRITE,URINE NEGATIVE (NEG); PH,URINE 7.5; PROTEIN,URINE NEGATIVE (NEG-TRACE); UROBILINOGEN,URINE 0.2 mg/dL (0.2 mg/dL)
[2017-10-19 21:25] LABS: BARBITURATES NEG (NEG); BENZODIAZEPINES NEG (NEG); CANNABINOIDS NEG (NEG); COCAINE NEG (NEG); METHADONE NEG (NEG); OPIATES NEG (NEG); PHENCYCLIDINE NEG (NEG)
[2017-10-19 21:29] LABS: BACTERIA,URINE 0 /HPF (0-FEW)
[2017-10-19 21:36] LABS: BASO % 1 % (0-3); EOS % 0 % (0-3); HEMATOCRIT 33.8 % (36.0-47.0); HEMOGLOBIN 11.3 g/dL (12.0-15.5); LYMPH # 0.7 x10^3/uL (1.0-4.8); LYMPH % 9 % (24-48); MEAN CORPUSCULAR HEMOGLOBIN 34 pg (25-35); MEAN CORPUSCULAR HGB CONC 33 g/dL (31-37); MEAN CORPUSCULAR VOLUME 101 fL (79-100); MONO % 3 % (0-9); NEUT % 87 % (31-73); PLATELET COUNT 156 x10^3/uL (140-400); RED BLOOD COUNT 3.35 x10^6/uL (3.50-5.40); WHITE BLOOD COUNT 7.7 x10^3/uL (4.0-11.0)
[2017-10-19 21:46] LABS: INR 2.5 (0.8-1.1); PROTHROMBIN TIME PATIENT 25.6 SEC (11.7-14.0)
[2017-10-19 21:49] LABS: CALCIUM 9.4 mg/dL (8.5-10.1); CREATININE 1.4 mg/dL (0.6-1.0); GFR 36.5; POTASSIUM 3.2 mmol/L (3.5-5.1)
[2017-10-19 21:55] LABS: ALBUMIN 3.1 g/dL (3.4-5.0); DIRECT BILIRUBIN 0.2 mg/dL (0.0-0.2); MAGNESIUM 2.1 mg/dL (1.8-2.4); TOTAL BILIRUBIN 0.6 mg/dL (0.2-1.0); TOTAL PROTEIN 6.8 g/dL (6.4-8.2)
--- NOTE | 2017-10-19 22:12 | PHYS DOC ---
Past Medical History Past Medical History: A-Fib, Anxiety, Cancer, CHF, Depression, GERD, Hypothyroid, Lung Disease, TIA Additional Past Medical Histor: L Lung CA Past Surgical History: Pacemaker Additional Past Surgical Histo: L Lung lobectomy, L shoulder, R hip, L leg Alcohol Use: None Drug Use: None Adult General Chief Complaint Chief Complaint: WEAKNESS/GENERALIZED HPI HPI Patient is a 77 year old female who presents with was weakness and right leg swelling and pain over the last 2 days. She denies any nausea vomiting shortness of breath. She states that she's feeling weaker than normal and she noticed her right leg was swelling. Upon examination she's states she just done notices that it is red. She states she's been compliant with all of her medications. She denies any chest pain or shortness of breath its going on this different than her normal. Review of Systems Review of Systems Constitutional: Denies fever or chills [] Eyes: Denies change in visual acuity, redness, or eye pain [] HENT: Denies nasal congestion or sore throat [] Respiratory: Denies cough or shortness of breath [] Cardiovascular: No additional information not addressed in HPI [] GI: Denies abdominal pain, nausea, vomiting, bloody stools or diarrhea [] : Denies dysuria or hematuria [] Musculoskeletal: Denies back pain or joint pain [] Integument: Denies rash or skin lesions [] Neurologic: Denies headache, focal weakness or sensory changes [] Endocrine: Denies polyuria or polydipsia [] All other systems were reviewed and found to be within normal limits, except as documented in this note. Allergies Allergies Allergies Coded Allergies Type Severity Reaction Last Updated Verified adhesive Allergy Intermediate "Breaks out" 04/02/16 Yes albuterol Allergy Intermediate "CAN'T BREATHE" 04/02/16 Yes codeine Allergy Intermediate "Breaks out." 04/02/16 Yes oxycodone Allergy Intermediate Rash 04/02/16 Yes duloxetine Adverse Reaction Intermediate edema 04/02/16 Yes pregabalin Adverse Reaction Intermediate edema 04/02/16 Yes Physical Exam Physical Exam Constitutional: Well developed, well nourished, no acute distress, non-toxic appearance. [] HENT: Normocephalic, atraumatic, bilateral external ears normal, oropharynx moist, no oral exudates, nose normal. [] Eyes: PERRLA, EOMI, conjunctiva normal, no discharge. [] Neck: Normal range of motion, no tenderness, supple, no stridor. [] Cardiovascular:Heart rate regular rhythm, no murmur [] Lungs & Thorax: Bilateral breath sounds clear to auscultation [] Abdomen: Bowel sounds normal, soft, no tenderness, no masses, no pulsatile masses. [] Skin: Warm, dry, no erythema, no rash. [] Back: No tenderness, no CVA tenderness. [] Extremities: No tenderness, no cyanosis, no clubbing, ROM intact, 2+ right lower show many edema with erythema to mid calf Neurologic: Alert and oriented X 3, normal motor function, normal sensory function, no focal deficits noted. [] Psychologic: Affect normal, judgement normal, mood normal. [] Current Patient Data Vital Signs Vital Signs Date Time Temp Pulse Resp B/P (MAP) Pulse Ox O2 Delivery O2 Flow Rate FiO2 10/19/17 21:14 71 18 100 10/19/17 20:54 98.1 106/56 (73) Room Air 98.1 Lab Values Laboratory Tests Test 10/19/17 21:11 10/19/17 21:30 10/19/17 21:35 Urine Collection Type Unknown Urine Color Yellow Urine Clarity Clear Urine pH 7.5 Urine Specific [place] 1.010 Urine Protein Negative mg/dL (NEG-TRACE) Urine Glucose (UA) Negative mg/dL (NEG) Urine Ketones (Stick) Negative mg/dL (NEG) Urine Blood Negative (NEG) Urine Nitrite Negative (NEG) Urine Bilirubin Negative (NEG) Urine Urobilinogen Dipstick 0.2 mg/dL (0.2 mg/dL) Urine Leukocyte Esterase Negative (NEG) Urine RBC 1-2 /HPF (0-2) Urine WBC 1-4 /HPF (0-4) Urine Bacteria 0 /HPF (0-FEW) Urine Hyaline Casts Many /HPF Urine Opiates Screen Neg (NEG) Urine Methadone Screen Neg (NEG) Urine Barbiturates Neg (NEG) Urine Phencyclidine Screen Neg (NEG) Urine Amphetamine/Methamphetamine Neg (NEG) Urine Benzodiazepines Screen Neg (NEG) Urine Cocaine Screen Neg (NEG) Urine Cannabinoids Screen Neg (NEG) Urine Ethyl Alcohol Neg (NEG) White Blood Count 7.7 x10^3/uL (4.0-11.0) Red Blood Count 3.35 x10^6/uL (3.50-5.40) L Hemoglobin 11.3 g/dL (12.0-15.5) L Hematocrit 33.8 % (36.0-47.0) L Mean Corpuscular Volume 101 fL (79-100) H Mean Corpuscular Hemoglobin 34 pg (25-35) Mean Corpuscular Hemoglobin Concent 33 g/dL (31-37) Red Cell Distribution Width 18.0 % (11.5-14.5) H Platelet Count 156 x10^3/uL (140-400) Neutrophils (%) (Auto) 87 % (31-73) H Lymphocytes (%) (Auto) 9 % (24-48) L Monocytes (%) (Auto) 3 % (0-9) Eosinophils (%) (Auto) 0 % (0-3) Basophils (%) (Auto) 1 % (0-3) Neutrophils # (Auto) 6.7 x10^3uL (1.8-7.7) Lymphocytes # (Auto) 0.7 x10^3/uL (1.0-4.8) L Monocytes # (Auto) 0.2 x10^3/uL (0.0-1.1) Eosinophils # (Auto) 0.0 x10^3/uL (0.0-0.7) Basophils # (Auto) 0.0 x10^3/uL (0.0-0.2) Prothrombin Time 25.6 SEC (11.7-14.0) H Prothrombin Time INR 2.5 (0.8-1.1) H Sodium Level 134 mmol/L (136-145) L Potassium Level 3.2 mmol/L (3.5-5.1) L Chloride Level 95 mmol/L (98-107) L Carbon Dioxide Level 34 mmol/L (21-32) H Anion Gap 5 (6-14) L Blood Urea Nitrogen 40 mg/dL (7-20) H Creatinine 1.4 mg/dL (0.6-1.0) H Estimated GFR (Cockcroft-Gault) 36.5 Glucose Level 109 mg/dL (70-99) H Calcium Level 9.4 mg/dL (8.5-10.1) Magnesium Level 2.1 mg/dL (1.8-2.4) Total Bilirubin 0.6 mg/dL (0.2-1.0) Direct Bilirubin 0.2 mg/dL (0.0-0.2) Aspartate Amino Transferase (AST) 43 U/L (15-37) H Alanine Aminotransferase (ALT) 46 U/L (14-59) Alkaline Phosphatase 87 U/L (46-116) Creatine Kinase 57 U/L (26-192) Creatine Kinase MB (Mass) 1.0 ng/mL (0.0-3.6) Creatine Kinase MB Relative Index 1.8 % (0-4) Troponin I Quantitative 0.077 ng/mL (0.000-0.055) NW-Trs-Z-Type Natriuretic Peptide 87029 pg/mL (0-449) H Total Protein 6.8 g/dL (6.4-8.2) Albumin 3.1 g/dL (3.4-5.0) L Lipase 203 U/L (73-393) Lactic Acid Level 1.2 mmol/L (0.4-2.0) Laboratory Tests 10/19/17 21:30 Laboratory Tests 10/19/17 21:30 EKG EKG EKG shows a paced rhythm with a rate of 66 bpm, left axis deviation noted, QTC 543 ms, as interpreted by me. Radiology/Procedures Radiology/Procedures [facility] [address] [place] [address] IMAGING REPORT Signed PATIENT: ZACKARY TAVARES ACCOUNT: [id number] : 1940 LOCATION: ER AGE: 77 SEX: F EXAM STATUS: REG ER ORD. PHYSICIAN: SHANT SORIA MD REASON: swelling-SONO KNOWS PROCEDURE: VENOUS LOWER EXTREMITY RIGHT EXAM: Right lower extremity venous Doppler sonogram. HISTORY: Weakness. Swelling. TECHNIQUE: Mayo scale and color Doppler sonographic evaluation of the right lower extremity veins with spectral waveform analysis was performed. FINDINGS: There is normal color flow, normal compressibility and there are normal spectral waveforms in the common femoral, superficial femoral, popliteal, posterior tibial and greater saphenous veins. There is right lower extremity soft tissue edema. IMPRESSION: No Doppler evidence of lower extremity venous thrombosis. Electronically signed by: Arelis Hooper MD (10/19/2017 10:31 PM) [facility] DICTATED and SIGNED BY: ARELIS HOOPER MD DATE: 10/19/172229 CC: SHANT SORIA MD; CHRISTIAN POSADA MD ~ Impressions: Generalized weakness Cellulitis of right lower extremity History of A. fib Pacemaker History of lung cancer status post resection Hypothyroidism Congestive heart failure Course & Med Decision Making Course & Med Decision Making Pertinent Labs and Imaging studies reviewed. (See chart for details) EKG shows that she's being paced. Her troponin is slightly elevated but it's still in with her other troponins. Spoke with Dr. Valencia regarding her troponin, vitals, clinical presentation. We'll admit to the hospitalist. We'll start vancomycin for her right lower show many cellulitis. Ultrasound is negative for DVT. Dragon Disclaimer Dragon Disclaimer This electronic medical record was generated, in whole or in part, using a voice recognition dictation system. Departure Departure Impression: Primary Impression: Cellulitis Disposition: ADMITTED INPATIENT Admitting Physician: Keerthi Elder Condition: STABLE Referrals: CHRISTIAN POSADA MD (PCP) SHANT SORIA MD Oct 19, 2017 22:12
--- NOTE | 2017-10-19 22:34 | RAD ---
EXAM: Right lower extremity venous Doppler sonogram. HISTORY: Weakness. Swelling. TECHNIQUE: Mayo scale and color Doppler sonographic evaluation of the right lower extremity veins with spectral waveform analysis was performed. FINDINGS: There is normal color flow, normal compressibility and there are normal spectral waveforms in the common femoral, superficial femoral, popliteal, posterior tibial and greater saphenous veins. There is right lower extremity soft tissue edema. IMPRESSION: No Doppler evidence of lower extremity venous thrombosis. Electronically signed by: Arelis Parkinson MD (10/19/2017 10:31 PM) [place] [id number]
[2017-10-19 22:44] LABS: PLT ESTIMATE ADEQUATE (ADEQUATE)
[2017-10-19] MEDS ORDERED: ONDANSETRON PF 4 MG/2 ML VIAL. IV PRN (22:45)
[2017-10-19] MEDS ORDERED: VANCOMYCIN 1.25 GM in IV DEXTROSE 5% 250 ML IV ONE (23:00)
[2017-10-19 23:30] VITALS: BP 105/57
[2017-10-20] MEDS: traZODone 50 MG TABLET. PO SCH ×3 (00:49→20:40)
[2017-10-20] MEDS: VANCOMYCIN PER PHARMACY MC PRN (01:00)
[2017-10-20 02:28] VITALS: BP 102/55
[2017-10-20 04:05] LABS: BASO % 0 % (0-3); EOS % 0 % (0-3); HEMATOCRIT 29.7 % (36.0-47.0); HEMOGLOBIN 9.9 g/dL (12.0-15.5); LYMPH % 17 % (24-48); MEAN CORPUSCULAR HEMOGLOBIN 33 pg (25-35); MEAN CORPUSCULAR HGB CONC 33 g/dL (31-37); MEAN CORPUSCULAR VOLUME 99 fL (79-100); MONO % 4 % (0-9); NEUT % 79 % (31-73); PLATELET COUNT 140 x10^3/uL (140-400); RED BLOOD COUNT 3.01 x10^6/uL (3.50-5.40); RED CELL DISTRIBUTION WIDTH 17.4 % (11.5-14.5); WHITE BLOOD COUNT 5.9 x10^3/uL (4.0-11.0)
[2017-10-20 04:10] LABS: CALCIUM 8.4 mg/dL (8.5-10.1); CREATININE 1.2 mg/dL (0.6-1.0); GFR 43.6
[2017-10-20 04:35] LABS: POTASSIUM 2.3 mmol/L (3.5-5.1)
[2017-10-20] MEDS ORDERED: POTASSIUM CHLORIDE 20 MEQ TABLET.ER. PO ONE ×2 (06:30→09:00)
[2017-10-20 07:00] VITALS: BP 97/49
--- NOTE | 2017-10-20 07:32 | EKG ---
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
--- NOTE | 2017-10-20 07:44 | RAD ---
Single view chest History:weakness An AP view of the chest is submitted. Comparison: 08/12/2017. Findings: There are again post surgical changes of partial left pneumonectomy. Heart size is stable. There is again dual lead left electronic cardiac device. There are multiple clips near the gastroesophageal junction. There is no significant pleural fluid, pneumothorax, lobar infiltrate. There is atherosclerotic calcification of the thoracic aorta greater near arch. Impression: No acute abnormality is identified.
[2017-10-20] MEDS: ALPRAZolam 0.25 MG TABLET PO PRN ×2 (08:20→16:31)
[2017-10-20] MEDS: ACETAMINOPHEN 325 MG TABLET. PO PRN ×2 (08:22→17:25)
[2017-10-20] MEDS: POTASSIUM CHLORIDE 20MEQ 50 ML IV SCH ×2 (09:30→10:30)
[2017-10-20] MEDS ORDERED: CALC0.25 (10:48)
[2017-10-20 11:00] VITALS: BP 103/56
[2017-10-20] MEDS ORDERED: ACETAMINOPHEN 500 MG TABLET PO PRN (12:15)
[2017-10-20] MEDS ORDERED: guaiFENesin DM 600/30MG 1 TAB TAB.ER.12H PO SCH (12:15)
[2017-10-20 12:46] LABS: CALCIUM 8.5 mg/dL (8.5-10.1); CREATININE 1.3 mg/dL (0.6-1.0); GFR 39.7; POTASSIUM 3.5 mmol/L (3.5-5.1)
[2017-10-20] MEDS ORDERED: POLYVINYL ALCOHOL 1.4% OPHTH SOLUTION 15ML BOTTLE. OU SCH (13:00)
[2017-10-20] MEDS: SPIRONOLACTONE 25 MG TABLET PO SCH (13:00)
[2017-10-20] MEDS: CETIRIZINE HCL 10 MG TABLET. PO SCH (13:00)
--- NOTE | 2017-10-20 13:37 | HP ---
ADMIT DATE: 10/19/2017 CHIEF COMPLAINT: Weakness, pain in her right leg, shortness of breath. HISTORY OF PRESENT ILLNESS: The patient is a pleasant, elderly female who presents with the above chief complaints. Basically, she is probably in the early stages of failure to thrive. She is weak. She has got some right lower extremity cellulitis. She has had some shortness of breath and chest pain. I have discussed the case with ER physician. We are going to admit the patient and consult Cardiology and give her some IV antibiotics for her cellulitis. PAST MEDICAL HISTORY: AFib, anxiety, lung cancer, CHF, depression, GERD, hypothyroidism, TIA, left lung lobectomy, right shoulder surgery. ALLERGIES: ADHESIVES, ALBUTEROL, CODEINE, DULOXETINE, OXYCODONE, AND PREGABALIN. FAMILY HISTORY: Coronary artery disease. SOCIAL HISTORY: She quit smoking, no drinking or drugs. MEDICATIONS: Reviewed. REVIEW OF SYSTEMS: GENERAL: She complains of weakness. SKIN: No bruising, hair changes or rashes. EYES: No blurred, double or loss of vision. NOSE AND THROAT: No history of nosebleeds, hoarseness or sore throat. HEART: No history of palpitations, chest pain or shortness of breath on exertion. LUNGS: Denies cough, hemoptysis, wheezing or shortness of breath. GASTROINTESTINAL: Denies changes in appetite, nausea, vomiting, diarrhea or constipation. GENITOURINARY: No history of frequency, urgency, hesitancy or nocturia. NEUROLOGIC: Denies history of numbness, tingling, tremor or weakness. PSYCHIATRIC: No history of panic, anxiety or depression. ENDOCRINE: No history of heat or cold intolerance, polyuria or polydipsia. EXTREMITIES: She complains of right leg pain. PHYSICAL EXAMINATION: VITAL SIGNS: Temperature afebrile, pulse 92, respirations 18, blood pressure 144/70. GENERAL: She is alert, cooperative. HEART: Normal S1, S2. LUNGS: Clear, but diminished. ABDOMEN: Soft, positive bowel sounds. EXTREMITIES: The right lower extremity has cellulitis. The left lower extremity has chronic venous stasis. White count 7, hemoglobin 11, platelets 156. Electrolytes are normal other than potassium of 2.3. ASSESSMENT AND PLAN: Severe weakness with severe hypokalemia and incidental finding of right lower extremity cellulitis. The patient has been admitted. We will replace her potassium, IV antibiotics. Continue home medicines, PT, OT, consult Cardiology, and senior living unit evaluation. BRITTA MARTINEZ DO DR: BLU/yo JOB#: [id number] / [id number]
[2017-10-20] MEDS: traMADol 50 MG TABLET PO PRN ×2 (13:39→20:40)
[2017-10-20] MEDS: ALLOPURINOL 100 MG TABLET. PO SCH (13:39)
[2017-10-20] MEDS: HYDROXYCHLOROQUINE 200 MG TABLET PO SCH (13:40)
[2017-10-20] MEDS: FERROUS SULFATE 325 MG TABLET. PO SCH (13:40)
[2017-10-20] MEDS: PARoxetine 20 MG TABLET PO SCH (13:40)
[2017-10-20] MEDS: OMEGA-3 FATTY ACIDS/FISH OIL 1,000 MG CAPSULE. PO SCH (13:41)
[2017-10-20] MEDS: PANTOPRAZOLE 40 MG TABLET.DR. PO SCH (13:41)
[2017-10-20] MEDS: PROPAFENONE 150 MG TABLET. PO SCH ×2 (13:41→20:39)
[2017-10-20] MEDS: CALCITRIOL 0.25 MCG CAPSULE. PO SCH (13:42)
[2017-10-20] MEDS ORDERED: FUROSEMIDE 80 MG TABLET. PO SCH (14:00)
[2017-10-20] MEDS ORDERED: WARFARIN 2.5 MG TABLET. PO ONE (14:45)
[2017-10-20 15:07] VITALS: BP 93/50
--- NOTE | 2017-10-20 15:13 | PDOC2 ---
CONSULT Date of Consult Date of Consult DATE: 10/20/17 TIME: 15:00 Reason for Consult Reason for Consult: Valvular heart disease Referring Physician Referring Physician: Dr. Elias Identification/Chief Complaint Chief Complaint Right leg pain with weakness and fatigue Problems: History of Present Illness Reason for Visit: This patient is a 77-year-old lady that has a known history of valvular heart disease with some aortic insufficiency and mitral insufficiency. She has had several admissions due to severe electrolyte imbalances with potassiums and have been very low below 2 and also very high above 9. My opinion has been that the patient has not been taking her medications appropriately and due to intermittent confusion or forgetfulness she was not taking her medications correctly and that caused all of the electrolyte imbalances. The patient in the past has refused to admit that she could've been making medications mistakes. She now comes in with a progressive severe fatigue and generalized weakness and also complaining of swelling and redness as well as tenderness of the right leg. The leg is very tender and she cannot walk due to her. After she arrived in the ER she was seen and evaluated and a venous Doppler showed that there was no evidence of DVT so it was felt that the patient was having a cellulitis of the right leg. She has peripheral vascular disease and has had a toe amputated in the past. She is currently being seen by the wound care center. The patient denies having any chest pains or any significant dyspnea at this time. She came in and was found to have a mild elevation of the troponin which is chronic with her in every admission. She is 100% paced and this is a long-standing rhythm with her. Past Medical History Cardiovascular: AFIB, CHF, Hyperlipidemia, Valve insufficiency Pulmonary: Previously Intubated CENTRAL NERVOUS SYSTEM: TIA GI: GERD Heme/Onc: Anemia NOS, Cancer Psych: Anxiety, Depression Musculoskeletal: Osteoarthritis, Stiffness Rheumatologic: Gout, Rheumatoid arthritis Endocrine: Diabetes, Hypothyroidism Past Surgical History Past Surgical History: Pacemaker, Cholecystectomy, Other Family History Family History: No Significant, Cancer Social History ALCOHOL: none Drugs: None Lives: with Family Current Problem List Problem List Problems Medical Problems: (1) Cellulitis Status: Acute Current Medications Current Medications Current Medications Vancomycin HCl (Vanco Per Pharmacy) 1 each PRN DAILY PRN MC SEE COMMENTS Last administered on 10/20/17t 01:00; Start 10/19/17 at 22:45 Ondansetron HCl (Zofran) 4 mg PRN Q8HRS PRN IV NAUSEA/VOMITING; Start at 22:45; Stop 10/20/17 at 22:44 Acetaminophen (Tylenol) 650 mg PRN Q4HRS PRN PO FEVER Last administered on 08:22; Start 10/19/17 at 22:45; Stop 10/20/17 at 22:44 Vancomycin HCl 1.25 gm/Dextrose 250 ml @ 166.667 mls/hr 1X ONCE IV Last administered on 10/19/17 23:36; Start 10/19/17 at 23:00; Stop 10/20/17 at 00 :29; Status DC Trazodone HCl (Desyrel) 25 mg QHS PO Last administered on 10/20/17 00:49; Start 10/20/17 at 01:00 Alprazolam (Xanax) 0.25 mg PRN Q8HRS PRN PO ANXIETY / AGITATION Last administered on 10/20/17 08:20; Start 10/20/17 at 00:30 Vancomycin HCl 750 mg/Dextrose 250 ml @ 250 mls/hr Q24H IV ; Start 10/20/17 at 22:00 Vancomycin HCl 1 each 1X ONCE MC ; Start 10/21/17 at 21:30; Stop 10/21/17 at 21:31 Potassium Chloride (Klor-Con) 40 meq 1X ONCE PO Last administered on 06:31; Start 10/20/17 at 06:30; Stop 10/20/17 at 06:31; Status DC Potassium Chloride (Klor-Con) 40 meq 1X ONCE PO Last administered on 08:21; Start 10/20/17 at 09:00; Stop 10/20/17 at 09:01; Status DC Potassium Chloride 50 ml @ 50 mls/hr Q1H IV ; Start 10/20/17 at 09:30; Stop at 11:29; Status UNV Acetaminophen (Tylenol) 500 mg PRN Q6HRS PRN PO MILD PAIN / TEMP; Start at 12:15 Allopurinol (Zyloprim) 100 mg DAILY PO Last administered on 10/20/17 13:39; Start 10/20/17 at 13:00 Alprazolam (Xanax) 0.25 mg PRN TID PRN PO ANXIETY / AGITATION; Start 10/20/17 at 12:15 Furosemide (Lasix) 80 mg BID92 PO ; Start 10/20/17 at 14:00 Guaifenesin (MUCINEX ER with DM) 1 tab PRN Q12HRS PO ; Start 10/20/17 at 12:15 Levothyroxine Sodium (Synthroid) 100 mcg DAILY07 PO ; Start 10/21/17 at 09:00 Propafenone HCl (Rythmol) 150 mg BID PO Last administered on 10/20/17 13:41; Start 10/20/17 at 13:00 Spironolactone (Aldactone) 25 mg DAILY PO ; Start 10/20/17 at 13:00 Tramadol HCl (Ultram) 50 mg PRN Q6HRS PRN PO PAIN Last administered on 13:39; Start 10/20/17 at 12:15 Trazodone HCl (Desyrel) 25 mg HS PO ; Start 10/20/17 at 21:00 Non-Formulary Medication 1,000 mg BID PO ; Start 10/20/17 at 21:00; Stop 10/20 at 21:00; Status DC Calcium/Vitamin D (Oscal D 500mg/ 200uts) 1 tab BIDWMEALS PO ; Start 10/20/17 at 17:00 Cetirizine HCl (ZyrTEC) 10 mg DAILY PO ; Start 10/20/17 at 13:00 Fish Oil (Fish Oil) 1,000 mg DAILY PO Last administered on 10/20/17 13:41; Start 10/20/17 at 13:00 Pantoprazole Sodium (Protonix) 40 mg DAILYAC PO Last administered on 13:41; Start 10/20/17 at 13:00 Paroxetine HCl (Paxil) 20 mg DAILY PO Last administered on 10/20/17 13:40; Start 10/20/17 at 13:00 Artificial Tears (Artificial Tears) 1 drop DAILY OU ; Start 10/20/17 at 13:00; Stop 10/20/17 at 13:00; Status DC Hydroxychloroquine Sulfate (Plaquenil) 200 mg DAILY08 PO Last administered on 10/20/17 13:40; Start 10/20/17 at 13:00 Ferrous Sulfate (Feosol) 325 mg DAILYWBKFT PO Last administered on 10/20/17 13:40; Start 10/20/17 at 13:00 Non-Formulary Medication 1 tab BID .ROUTE ; Start 10/20/17 at 21:00; Stop at 21:00; Status DC Artificial Tears (Artificial Tears) 1 drop DAILY OU ; Start 10/21/17 at 09:00 Calcitriol (Rocaltrol) 0.25 mcg DAILY PO Last administered on 10/20/17 13:42 ; Start 10/20/17 at 14:00 Warfarin Sodium (Coumadin) 2.5 mg 1X ONCE PO ; Start 10/20/17 at 14:45; Stop 10/20/17 at 14:46; Status UNV Warfarin Sodium (Coumadin Per Physician) 1 each PRN DAILY PRN MC SEE COMMENTS; Start 10/20/17 at 14:45; Status UNV Active Scripts Active Potassium Chloride 20 Meq Tablet.er 20 Meq PO 5XDAY 90 Days Aldactone (Spironolactone) 25 Mg Tablet 1 Tab PO DAILY Reported Calcitriol 0.25 Mcg Capsule Metolazone 5 Mg Tablet Furosemide 80 Mg Tablet 1 Tab PO BID Methotrexate (Methotrexate Sodium) 2.5 Mg Tablet 7 Tab PO SATURDAY [hydroxyl-chloroquine] 200 Mg PO DAILY08 Calcium + Vitamin D Tablet (Calcium Carbonate/Vitamin D3) 1 Each Tablet 1 Each PO BID Claritin (Loratadine) 10 Mg Tablet 1 Tab PO DAILY PRN Coumadin (Warfarin Sodium) 6 Mg Tablet 6 Mg PO ,,,, Acetaminophen 500 Mg Tablet 1 Tab PO PRN Q6HRS PRN Mucinex Dm Er 600-30 Mg Tablet (Guaifenesin/Dextromethorphan) 1 Each Tab.er.12h 1 Tab PO PRN Q12HRS Trazodone Hcl 50 Mg Tablet 25 Mg PO HS Propafenone Hcl 150 Mg Tablet 150 Mg PO BID Systane 0.3-0.4% Eye Drops (Propylene Glycol/Peg 400/Pf) 1 Each Droperette 1 Each OP DAILY Xanax (Alprazolam) 0.25 Mg Tablet 1 Tab PO PRN TID PRN Biotin 1 Mg Capsule 1,000 Mg PO BID [lutein] 1 Tab BID [Iron ] 1 Tab DAILY Omeprazole 40 Mg Capsule.dr 40 Mg PO DAILY Tramadol Hcl 50 Mg Tablet 50 Mg PO PRN Q6HRS PRN Fish Oil 1,000 Mg Softgel ([place]-3 Fatty Acids/Fish Oil) 1 Each Capsule 1 Each PO DAILY Allopurinol 100 Mg Tablet 100 Mg PO DAILY Paxil (Paroxetine Hcl) 40 Mg Tablet 20 Mg PO DAILY Levothyroxine Sodium 100 Mcg Tablet 100 Mcg PO DAILY Allergies Allergies: Coded Allergies: adhesive (Verified Allergy, Intermediate, "Breaks out", 04/02/16) Pt states, "tape and band-aids." albuterol (Verified Allergy, Intermediate, "CAN'T BREATHE", 04/02/16) codeine (Verified Allergy, Intermediate, "Breaks out.", 04/02/16) oxycodone (Verified Allergy, Intermediate, Rash, 04/02/16) duloxetine (Verified Adverse Reaction, Intermediate, edema, 04/02/16) pregabalin (Verified Adverse Reaction, Intermediate, edema, 04/02/16) Physical Exam General: Alert, Oriented X3, Cooperative HEENT: Atraumatic, PERRLA Lungs: Normal air movement, Other (no Rales) Heart: Other (regular rate and rhythm S1-S2. 2/6 systolic murmur.) Abdomen: Normal bowel sounds, Soft Extremities: Other (1-2+ edema of the right leg with diffuse tenderness below the knee as well has redness and calor. The left leg has a trace of edema. No tenderness.) Vitals VITALS Vital Signs Date Time Temp Pulse Resp B/P (MAP) Pulse Ox O2 Delivery O2 Flow Rate FiO2 10/20/17 13:41 60 103/56 10/20/17 13:39 100 Room Air 10/20/17 11:00 97.8 18 97.8 Labs Labs Laboratory Tests Test 10/19/17 21:11 10/19/17 21:30 10/19/17 21:35 10/20/17 02:50 Urine Collection Type Unknown Urine Color Yellow Urine Clarity Clear Urine pH 7.5 Urine Specific [place] 1.010 Urine Protein Negative mg/dL (NEG-TRACE) Urine Glucose (UA) Negative mg/dL (NEG) Urine Ketones (Stick) Negative mg/dL (NEG) Urine Blood Negative (NEG) Urine Nitrite Negative (NEG) Urine Bilirubin Negative (NEG) Urine Urobilinogen Dipstick 0.2 mg/dL (0.2 mg/dL) Urine Leukocyte Esterase Negative (NEG) Urine RBC 1-2 /HPF (0-2) Urine WBC 1-4 /HPF (0-4) Urine Bacteria 0 /HPF (0-FEW) Urine Hyaline Casts Many /HPF Urine Opiates Screen Neg (NEG) Urine Methadone Screen Neg (NEG) Urine Barbiturates Neg (NEG) Urine Phencyclidine Screen Neg (NEG) Urine Amphetamine/Methamphetamine Neg (NEG) Urine Benzodiazepines Screen Neg (NEG) Urine Cocaine Screen Neg (NEG) Urine Cannabinoids Screen Neg (NEG) Urine Ethyl Alcohol Neg (NEG) White Blood Count 7.7 x10^3/uL (4.0-11.0) 5.9 x10^3/uL (4.0-11.0) Red Blood Count 3.35 x10^6/uL (3.50-5.40) 3.01 x10^6/uL (3.50-5.40) Hemoglobin 11.3 g/dL (12.0-15.5) 9.9 g/dL (12.0-15.5) Hematocrit 33.8 % (36.0-47.0) 29.7 % (36.0-47.0) Mean Corpuscular Volume 101 fL (79-100) 99 fL (79-100) Mean Corpuscular Hemoglobin 34 pg (25-35) 33 pg (25-35) Mean Corpuscular Hemoglobin Concent 33 g/dL (31-37) 33 g/dL (31-37) Red Cell Distribution Width 18.0 % (11.5-14.5) 17.4 % (11.5-14.5) Platelet Count 156 x10^3/uL (140-400) 140 x10^3/uL (140-400) Neutrophils (%) (Auto) 87 % (31-73) 79 % (31-73) Lymphocytes (%) (Auto) 9 % (24-48) 17 % (24-48) Monocytes (%) (Auto) 3 % (0-9) 4 % (0-9) Eosinophils (%) (Auto) 0 % (0-3) 0 % (0-3) Basophils (%) (Auto) 1 % (0-3) 0 % (0-3) Neutrophils # (Auto) 6.7 x10^3uL (1.8-7.7) 4.6 x10^3uL (1.8-7.7) Lymphocytes # (Auto) 0.7 x10^3/uL (1.0-4.8) 1.0 x10^3/uL (1.0-4.8) Monocytes # (Auto) 0.2 x10^3/uL (0.0-1.1) 0.2 x10^3/uL (0.0-1.1) Eosinophils # (Auto) 0.0 x10^3/uL (0.0-0.7) 0.0 x10^3/uL (0.0-0.7) Basophils # (Auto) 0.0 x10^3/uL (0.0-0.2) 0.0 x10^3/uL (0.0-0.2) Segmented Neutrophils % 85 % (35-66) Band Neutrophils % 3 % (0-9) Lymphocytes % 11 % (24-48) Monocytes % 1 % (0-10) Platelet Estimate Adequate (ADEQUATE) Prothrombin Time 25.6 SEC (11.7-14.0) Prothromb Time International Ratio 2.5 (0.8-1.1) Sodium Level 134 mmol/L (136-145) Potassium Level 3.2 mmol/L (3.5-5.1) Chloride Level 95 mmol/L (98-107) Carbon Dioxide Level 34 mmol/L (21-32) Anion Gap 5 (6-14) Blood Urea Nitrogen 40 mg/dL (7-20) Creatinine 1.4 mg/dL (0.6-1.0) Estimated GFR (Cockcroft-Gault) 36.5 Glucose Level 109 mg/dL (70-99) Calcium Level 9.4 mg/dL (8.5-10.1) Magnesium Level 2.1 mg/dL (1.8-2.4) Total Bilirubin 0.6 mg/dL (0.2-1.0) Direct Bilirubin 0.2 mg/dL (0.0-0.2) Aspartate Amino Transf (AST/SGOT) 43 U/L (15-37) Alanine Aminotransferase (ALT/SGPT) 46 U/L (14-59) Alkaline Phosphatase 87 U/L (46-116) Creatine Kinase 57 U/L (26-192) Creatine Kinase MB (Mass) 1.0 ng/mL (0.0-3.6) Creatine Kinase MB Relative Index 1.8 % (0-4) Troponin I Quantitative 0.077 ng/mL (0.000-0.055) 0.078 ng/mL (0.000-0.055) ZY-Dvu-B-Type Natriuretic Peptide 79507 pg/mL (0-449) Total Protein 6.8 g/dL (6.4-8.2) Albumin 3.1 g/dL (3.4-5.0) Lipase 203 U/L (73-393) Lactic Acid Level 1.2 mmol/L (0.4-2.0) Test 10/20/17 03:30 10/20/17 10:50 10/20/17 12:27 Sodium Level 138 mmol/L (136-145) 138 mmol/L (136-145) Potassium Level 2.3 mmol/L (3.5-5.1) 3.5 mmol/L (3.5-5.1) Chloride Level 98 mmol/L (98-107) 99 mmol/L (98-107) Carbon Dioxide Level 37 mmol/L (21-32) 39 mmol/L (21-32) Anion Gap 3 (6-14) 0 (6-14) Blood Urea Nitrogen 35 mg/dL (7-20) 34 mg/dL (7-20) Creatinine 1.2 mg/dL (0.6-1.0) 1.3 mg/dL (0.6-1.0) Estimated GFR (Cockcroft-Gault) 43.6 39.7 Glucose Level 81 mg/dL (70-99) 70 mg/dL (70-99) Calcium Level 8.4 mg/dL (8.5-10.1) 8.5 mg/dL (8.5-10.1) Troponin I Quantitative 0.094 ng/mL (0.000-0.055) Laboratory Tests Test 10/19/17 21:11 10/19/17 21:30 10/19/17 21:35 10/20/17 02:50 Urine Collection Type Unknown Urine Color Yellow Urine Clarity Clear Urine pH 7.5 Urine Specific [place] 1.010 Urine Protein Negative mg/dL (NEG-TRACE) Urine Glucose (UA) Negative mg/dL (NEG) Urine Ketones (Stick) Negative mg/dL (NEG) Urine Blood Negative (NEG) Urine Nitrite Negative (NEG) Urine Bilirubin Negative (NEG) Urine Urobilinogen Dipstick 0.2 mg/dL (0.2 mg/dL) Urine Leukocyte Esterase Negative (NEG) Urine RBC 1-2 /HPF (0-2) Urine WBC 1-4 /HPF (0-4) Urine Bacteria 0 /HPF (0-FEW) Urine Hyaline Casts Many /HPF Urine Opiates Screen Neg (NEG) Urine Methadone Screen Neg (NEG) Urine Barbiturates Neg (NEG) Urine Phencyclidine Screen Neg (NEG) Urine Amphetamine/Methamphetamine Neg (NEG) Urine Benzodiazepines Screen Neg (NEG) Urine Cocaine Screen Neg (NEG) Urine Cannabinoids Screen Neg (NEG) Urine Ethyl Alcohol Neg (NEG) White Blood Count 7.7 x10^3/uL (4.0-11.0) 5.9 x10^3/uL (4.0-11.0) Red Blood Count 3.35 x10^6/uL (3.50-5.40) 3.01 x10^6/uL (3.50-5.40) Hemoglobin 11.3 g/dL (12.0-15.5) 9.9 g/dL (12.0-15.5) Hematocrit 33.8 % (36.0-47.0) 29.7 % (36.0-47.0) Mean Corpuscular Volume 101 fL (79-100) 99 fL (79-100) Mean Corpuscular Hemoglobin 34 pg (25-35) 33 pg (25-35) Mean Corpuscular Hemoglobin Concent 33 g/dL (31-37) 33 g/dL (31-37) Red Cell Distribution Width 18.0 % (11.5-14.5) 17.4 % (11.5-14.5) Platelet Count 156 x10^3/uL (140-400) 140 x10^3/uL (140-400) Neutrophils (%) (Auto) 87 % (31-73) 79 % (31-73) Lymphocytes (%) (Auto) 9 % (24-48) 17 % (24-48) Monocytes (%) (Auto) 3 % (0-9) 4 % (0-9) Eosinophils (%) (Auto) 0 % (0-3) 0 % (0-3) Basophils (%) (Auto) 1 % (0-3) 0 % (0-3) Neutrophils # (Auto) 6.7 x10^3uL (1.8-7.7) 4.6 x10^3uL (1.8-7.7) Lymphocytes # (Auto) 0.7 x10^3/uL (1.0-4.8) 1.0 x10^3/uL (1.0-4.8) Monocytes # (Auto) 0.2 x10^3/uL (0.0-1.1) 0.2 x10^3/uL (0.0-1.1) Eosinophils # (Auto) 0.0 x10^3/uL (0.0-0.7) 0.0 x10^3/uL (0.0-0.7) Basophils # (Auto) 0.0 x10^3/uL (0.0-0.2) 0.0 x10^3/uL (0.0-0.2) Segmented Neutrophils % 85 % (35-66) Band Neutrophils % 3 % (0-9) Lymphocytes % 11 % (24-48) Monocytes % 1 % (0-10) Platelet Estimate Adequate (ADEQUATE) Prothrombin Time 25.6 SEC (11.7-14.0) Prothromb Time International Ratio 2.5 (0.8-1.1) Sodium Level 134 mmol/L (136-145) Potassium Level 3.2 mmol/L (3.5-5.1) Chloride Level 95 mmol/L (98-107) Carbon Dioxide Level 34 mmol/L (21-32) Anion Gap 5 (6-14) Blood Urea Nitrogen 40 mg/dL (7-20) Creatinine 1.4 mg/dL (0.6-1.0) Estimated GFR (Cockcroft-Gault) 36.5 Glucose Level 109 mg/dL (70-99) Calcium Level 9.4 mg/dL (8.5-10.1) Magnesium Level 2.1 mg/dL (1.8-2.4) Total Bilirubin 0.6 mg/dL (0.2-1.0) Direct Bilirubin 0.2 mg/dL (0.0-0.2) Aspartate Amino Transf (AST/SGOT) 43 U/L (15-37) Alanine Aminotransferase (ALT/SGPT) 46 U/L (14-59) Alkaline Phosphatase 87 U/L (46-116) Creatine Kinase 57 U/L (26-192) Creatine Kinase MB (Mass) 1.0 ng/mL (0.0-3.6) Creatine Kinase MB Relative Index 1.8 % (0-4) Troponin I Quantitative 0.077 ng/mL (0.000-0.055) 0.078 ng/mL (0.000-0.055) XF-Oye-R-Type Natriuretic Peptide 85122 pg/mL (0-449) Total Protein 6.8 g/dL (6.4-8.2) Albumin 3.1 g/dL (3.4-5.0) Lipase 203 U/L (73-393) Lactic Acid Level 1.2 mmol/L (0.4-2.0) Test 10/20/17 03:30 10/20/17 10:50 10/20/17 12:27 Sodium Level 138 mmol/L (136-145) 138 mmol/L (136-145) Potassium Level 2.3 mmol/L (3.5-5.1) 3.5 mmol/L (3.5-5.1) Chloride Level 98 mmol/L (98-107) 99 mmol/L (98-107) Carbon Dioxide Level 37 mmol/L (21-32) 39 mmol/L (21-32) Anion Gap 3 (6-14) 0 (6-14) Blood Urea Nitrogen 35 mg/dL (7-20) 34 mg/dL (7-20) Creatinine 1.2 mg/dL (0.6-1.0) 1.3 mg/dL (0.6-1.0) Estimated GFR (Cockcroft-Gault) 43.6 39.7 Glucose Level 81 mg/dL (70-99) 70 mg/dL (70-99) Calcium Level 8.4 mg/dL (8.5-10.1) 8.5 mg/dL (8.5-10.1) Troponin I Quantitative 0.094 ng/mL (0.000-0.055) Assessment/Plan Assessment/Plan Patient comes in with a right leg cellulitis and is receiving IV antibiotics. She needs to be followed by the wound care clinic for which has been following her for some time. From a cardiac standpoint her pacemaker is working normally and the elevation of the troponin is chronic. I agree with the present plan of treatment. Thank you very much for asking me to participate in the care of this patient CJ DIAL MD Oct 20, 2017 15:13
[2017-10-20] MEDS: CALCIUM CARB/VIT D3 500/200 TABLET. PO SCH (16:32)
[2017-10-20 19:25] VITALS: BP 91/40
[2017-10-20] MEDS ORDERED: BIOTIN 1000 MG PO SCH (21:00)
[2017-10-20] MEDS ORDERED: LUTEIN SCH (21:00)
[2017-10-20] MEDS: VANCOMYCIN 750 MG in IV DEXTROSE 5% 250 ML IV SCH (21:50)
[2017-10-20 23:05] VITALS: BP 88/51
--- NOTE | 2017-10-21 00:26 | CONS ---
DATE OF CONSULTATION: 10/20/2017 REQUESTING PHYSICIAN: Hospitalist. REASON FOR CONSULTATION: Renal failure. HISTORY OF PRESENT ILLNESS: This is a 77-year-old female with history of chronic kidney disease stage 3 and lung carcinoma status post resection. The patient currently admitted with right lower extremity cellulitis and weakness. Due to known renal disease and increase level of azotemia, Nephrology evaluation requested. The patient had no difficulty urination, nephrolithiasis or gross hematuria. PAST MEDICAL AND SURGICAL HISTORY: Chronic kidney disease stage 3, secondary hyperparathyroidism, renal disease, chronic lower extremity edema, lung carcinoma, status post left lobectomy, GE reflux disease, hypothyroidism, TIA, left shoulder surgery, right hip surgery. ALLERGIES: ADHESIVES, ALBUTEROL, CODEINE, DULOXETINE, OXYCODONE, PREGABALIN. MEDICATIONS: Reviewed from med list. FAMILY HISTORY: Noncontributory. SOCIAL HISTORY: The patient resides independently. REVIEW OF SYSTEMS: No headaches, sinus problem, nasal drainage, epistaxis, change in vision or hearing. No difficulty swallowing. No fever, chills, cough, sputum production, or hemoptysis. No chest pain, shortness of breath, PND, orthopnea or dyspnea on exertion. No abdominal pain or upper or lower gastrointestinal blood loss. No nausea, vomiting, diarrhea, seizures. She has history of lung cancer. She has had lower extremity edema, right greater than left. She has had erythema in the right lower extremity. PHYSICAL EXAMINATION: GENERAL APPEARANCE: The patient awake, conversant, and appropriate. HEENT: Pupils are reactive. Mouth and nasal passage are clear. NECK: No increased JVD. No thyromegaly, mass or adenopathy. LUNGS: Clear. CARDIAC: Without S3 or rub. ABDOMEN: Soft, nontender, no bruits. EXTREMITIES: Right greater than left lower extremity edema with erythema in the right lower extremity distal to the knee. NEUROLOGIC: Nonfocal localizing. PSYCHIATRIC: Good attention to detail, appropriate affect. LABORATORY DATA: Sodium 138, potassium is 3.5, chloride 99, CO2 of 39, BUN 34, creatinine 1.3. Hemoglobin 9.9, hematocrit 29.7. IMPRESSION: 1. Chronic kidney disease stage 3, likely due to chronic interstitial nephritis. 2. Edema with right lower extremity cellulitis. 3. Secondary hyperparathyroidism of renal disease. RECOMMENDATIONS: 1. Calcitriol 0.25 mcg daily. 2. Fluid balance. 3. Antibiotics pending culture results. 4. We will follow. LUIS GUZMAN MD DR: TONI/yo JOB#: [id number] / [id number]
[2017-10-21 03:25] VITALS: BP 98/52
[2017-10-21] MEDS: traMADol 50 MG TABLET PO PRN ×3 (03:54→21:15)
[2017-10-21] MEDS: ALPRAZolam 0.25 MG TABLET PO PRN ×3 (03:54→21:15)
[2017-10-21 05:52] LABS: ALBUMIN 2.4 g/dL (3.4-5.0); ALBUMIN/GLOBULIN RATIO 0.8 (1.0-1.7); CALCIUM 8.1 mg/dL (8.5-10.1); CREATININE 1.4 mg/dL (0.6-1.0); GFR 36.5; TOTAL BILIRUBIN 0.4 mg/dL (0.2-1.0); TOTAL PROTEIN 5.3 g/dL (6.4-8.2)
[2017-10-21 05:55] LABS: POTASSIUM 2.2 mmol/L (3.5-5.1)
[2017-10-21 07:00] VITALS: BP 104/60
[2017-10-21] MEDS ORDERED: POTASSIUM CHLORIDE 20 MEQ TABLET.ER. PO ONE ×3 (07:30→12:00)
[2017-10-21] MEDS: VANCOMYCIN PER PHARMACY MC PRN ×2 (08:18→23:06)
[2017-10-21] MEDS: PANTOPRAZOLE 40 MG TABLET.DR. PO SCH (08:19)
[2017-10-21] MEDS: CETIRIZINE HCL 10 MG TABLET. PO SCH (08:27)
[2017-10-21] MEDS: LEVOTHYROXINE 100 MCG TABLET PO SCH (08:27)
[2017-10-21] MEDS: ALLOPURINOL 100 MG TABLET. PO SCH (08:28)
[2017-10-21] MEDS: FUROSEMIDE 40 MG TABLET. PO SCH (08:28)
[2017-10-21] MEDS: PARoxetine 20 MG TABLET PO SCH (08:28)
[2017-10-21] MEDS: CALCITRIOL 0.25 MCG CAPSULE. PO SCH (08:28)
[2017-10-21] MEDS: OMEGA-3 FATTY ACIDS/FISH OIL 1,000 MG CAPSULE. PO SCH (08:29)
[2017-10-21] MEDS: CALCIUM CARB/VIT D3 500/200 TABLET. PO SCH ×2 (08:29→17:43)
[2017-10-21] MEDS: FERROUS SULFATE 325 MG TABLET. PO SCH (08:29)
[2017-10-21] MEDS: HYDROXYCHLOROQUINE 200 MG TABLET PO SCH (08:29)
[2017-10-21] MEDS: POLYVINYL ALCOHOL 1.4% OPHTH SOLUTION 15ML BOTTLE. OU SCH (09:00)
[2017-10-21] MEDS: SPIRONOLACTONE 25 MG TABLET PO SCH (09:00)
[2017-10-21] MEDS: PROPAFENONE 150 MG TABLET. PO SCH ×2 (09:00→21:10)
--- NOTE | 2017-10-21 10:04 | PDOC ---
PROGRESS NOTES Subjective Subjective Patient doing well this AM. She continues to be very fatigued and weak. Patient reports having a good appetite. Denies any shortness of breath or cardiac complaints this AM. Feel that her R leg pain is decreasing with IV antibiotics. No additional complaints at this time. Objective Objective Vital Signs Date Time Temp Pulse Resp B/P (MAP) Pulse Ox O2 Delivery O2 Flow Rate FiO2 10/21/17 08:00 Room Air 10/21/17 07:00 97.3 66 19 104/60 (75) 100 97.3 Intake and Output 10/21/17 06:59 Intake Total 1080 ml Output Total 1900 ml Balance -820 ml Intake Oral 1080 ml Output Urine Total 1900 ml Physical Exam COMMENT Alert, Awake, Oriented No Acute Distress Lungs CTAB No significant changes in cardiac exam Decreasing R leg erythema and TTP Assessment Assessment Problems Medical Problems: (1) Cellulitis Status: Acute Plan Plan of Care Patient receiving IV antibiotics for R leg cellulitis. Continues to improve. She needs to be followed by the wound care clinic for which has been following her for some time. From a cardiac standpoint her pacemaker is working normally and the elevation of the troponin is chronic. Will handle Coumadin and get daily INRs. Will continue to follow patient throughout her hospitalization. Neck Pain- Will order a C-spine non-contrast CT for further work-up. Comment Review of Relevant I have reviewed the following items lelia (where applicable) has been applied. Labs Laboratory Tests Test 10/19/17 21:11 10/19/17 21:30 10/19/17 21:35 10/20/17 02:50 Urine Collection Type Unknown Urine Color Yellow Urine Clarity Clear Urine pH 7.5 Urine Specific [place] 1.010 Urine Protein Negative mg/dL (NEG-TRACE) Urine Glucose (UA) Negative mg/dL (NEG) Urine Ketones (Stick) Negative mg/dL (NEG) Urine Blood Negative (NEG) Urine Nitrite Negative (NEG) Urine Bilirubin Negative (NEG) Urine Urobilinogen Dipstick 0.2 mg/dL (0.2 mg/dL) Urine Leukocyte Esterase Negative (NEG) Urine RBC 1-2 /HPF (0-2) Urine WBC 1-4 /HPF (0-4) Urine Bacteria 0 /HPF (0-FEW) Urine Hyaline Casts Many /HPF Urine Opiates Screen Neg (NEG) Urine Methadone Screen Neg (NEG) Urine Barbiturates Neg (NEG) Urine Phencyclidine Screen Neg (NEG) Urine Amphetamine/Methamphetamine Neg (NEG) Urine Benzodiazepines Screen Neg (NEG) Urine Cocaine Screen Neg (NEG) Urine Cannabinoids Screen Neg (NEG) Urine Ethyl Alcohol Neg (NEG) White Blood Count 7.7 x10^3/uL (4.0-11.0) 5.9 x10^3/uL (4.0-11.0) Red Blood Count 3.35 x10^6/uL (3.50-5.40) 3.01 x10^6/uL (3.50-5.40) Hemoglobin 11.3 g/dL (12.0-15.5) 9.9 g/dL (12.0-15.5) Hematocrit 33.8 % (36.0-47.0) 29.7 % (36.0-47.0) Mean Corpuscular Volume 101 fL (79-100) 99 fL (79-100) Mean Corpuscular Hemoglobin 34 pg (25-35) 33 pg (25-35) Mean Corpuscular Hemoglobin Concent 33 g/dL (31-37) 33 g/dL (31-37) Red Cell Distribution Width 18.0 % (11.5-14.5) 17.4 % (11.5-14.5) Platelet Count 156 x10^3/uL (140-400) 140 x10^3/uL (140-400) Neutrophils (%) (Auto) 87 % (31-73) 79 % (31-73) Lymphocytes (%) (Auto) 9 % (24-48) 17 % (24-48) Monocytes (%) (Auto) 3 % (0-9) 4 % (0-9) Eosinophils (%) (Auto) 0 % (0-3) 0 % (0-3) Basophils (%) (Auto) 1 % (0-3) 0 % (0-3) Neutrophils # (Auto) 6.7 x10^3uL (1.8-7.7) 4.6 x10^3uL (1.8-7.7) Lymphocytes # (Auto) 0.7 x10^3/uL (1.0-4.8) 1.0 x10^3/uL (1.0-4.8) Monocytes # (Auto) 0.2 x10^3/uL (0.0-1.1) 0.2 x10^3/uL (0.0-1.1) Eosinophils # (Auto) 0.0 x10^3/uL (0.0-0.7) 0.0 x10^3/uL (0.0-0.7) Basophils # (Auto) 0.0 x10^3/uL (0.0-0.2) 0.0 x10^3/uL (0.0-0.2) Segmented Neutrophils % 85 % (35-66) Band Neutrophils % 3 % (0-9) Lymphocytes % 11 % (24-48) Monocytes % 1 % (0-10) Platelet Estimate Adequate (ADEQUATE) Prothrombin Time 25.6 SEC (11.7-14.0) Prothromb Time International Ratio 2.5 (0.8-1.1) Sodium Level 134 mmol/L (136-145) Potassium Level 3.2 mmol/L (3.5-5.1) Chloride Level 95 mmol/L (98-107) Carbon Dioxide Level 34 mmol/L (21-32) Anion Gap 5 (6-14) Blood Urea Nitrogen 40 mg/dL (7-20) Creatinine 1.4 mg/dL (0.6-1.0) Estimated GFR (Cockcroft-Gault) 36.5 Glucose Level 109 mg/dL (70-99) Calcium Level 9.4 mg/dL (8.5-10.1) Magnesium Level 2.1 mg/dL (1.8-2.4) Total Bilirubin 0.6 mg/dL (0.2-1.0) Direct Bilirubin 0.2 mg/dL (0.0-0.2) Aspartate Amino Transf (AST/SGOT) 43 U/L (15-37) Alanine Aminotransferase (ALT/SGPT) 46 U/L (14-59) Alkaline Phosphatase 87 U/L (46-116) Creatine Kinase 57 U/L (26-192) Creatine Kinase MB (Mass) 1.0 ng/mL (0.0-3.6) Creatine Kinase MB Relative Index 1.8 % (0-4) Troponin I Quantitative 0.077 ng/mL (0.000-0.055) 0.078 ng/mL (0.000-0.055) LN-Nmp-Y-Type Natriuretic Peptide 24673 pg/mL (0-449) Total Protein 6.8 g/dL (6.4-8.2) Albumin 3.1 g/dL (3.4-5.0) Lipase 203 U/L (73-393) Lactic Acid Level 1.2 mmol/L (0.4-2.0) Test 10/20/17 03:30 10/20/17 10:50 10/20/17 12:27 10/20/17 16:56 Sodium Level 138 mmol/L (136-145) 138 mmol/L (136-145) Potassium Level 2.3 mmol/L (3.5-5.1) 3.5 mmol/L (3.5-5.1) Chloride Level 98 mmol/L (98-107) 99 mmol/L (98-107) Carbon Dioxide Level 37 mmol/L (21-32) 39 mmol/L (21-32) Anion Gap 3 (6-14) 0 (6-14) Blood Urea Nitrogen 35 mg/dL (7-20) 34 mg/dL (7-20) Creatinine 1.2 mg/dL (0.6-1.0) 1.3 mg/dL (0.6-1.0) Estimated GFR (Cockcroft-Gault) 43.6 39.7 Glucose Level 81 mg/dL (70-99) 70 mg/dL (70-99) Calcium Level 8.4 mg/dL (8.5-10.1) 8.5 mg/dL (8.5-10.1) Troponin I Quantitative 0.094 ng/mL (0.000-0.055) Glucose (Fingerstick) 173 mg/dL (70-99) Test 10/20/17 20:44 10/20/17 21:26 10/21/17 04:20 10/21/17 07:55 Glucose (Fingerstick) 54 mg/dL (70-99) 209 mg/dL (70-99) 78 mg/dL (70-99) Sodium Level 137 mmol/L (136-145) Potassium Level 2.2 mmol/L (3.5-5.1) Chloride Level 97 mmol/L (98-107) Carbon Dioxide Level 33 mmol/L (21-32) Anion Gap 7 (6-14) Blood Urea Nitrogen 43 mg/dL (7-20) Creatinine 1.4 mg/dL (0.6-1.0) Estimated GFR (Cockcroft-Gault) 36.5 BUN/Creatinine Ratio 31 (6-20) Glucose Level 75 mg/dL (70-99) Calcium Level 8.1 mg/dL (8.5-10.1) Total Bilirubin 0.4 mg/dL (0.2-1.0) Aspartate Amino Transf (AST/SGOT) 24 U/L (15-37) Alanine Aminotransferase (ALT/SGPT) 30 U/L (14-59) Alkaline Phosphatase 55 U/L (46-116) Total Protein 5.3 g/dL (6.4-8.2) Albumin 2.4 g/dL (3.4-5.0) Albumin/Globulin Ratio 0.8 (1.0-1.7) Laboratory Tests Test 10/20/17 10:50 10/20/17 12:27 10/20/17 16:56 10/20/17 20:44 Troponin I Quantitative 0.094 ng/mL (0.000-0.055) Sodium Level 138 mmol/L (136-145) Potassium Level 3.5 mmol/L (3.5-5.1) Chloride Level 99 mmol/L (98-107) Carbon Dioxide Level 39 mmol/L (21-32) Anion Gap 0 (6-14) Blood Urea Nitrogen 34 mg/dL (7-20) Creatinine 1.3 mg/dL (0.6-1.0) Estimated GFR (Cockcroft-Gault) 39.7 Glucose Level 70 mg/dL (70-99) Calcium Level 8.5 mg/dL (8.5-10.1) Glucose (Fingerstick) 173 mg/dL (70-99) 54 mg/dL (70-99) Test 10/20/17 21:26 10/21/17 04:20 10/21/17 07:55 Glucose (Fingerstick) 209 mg/dL (70-99) 78 mg/dL (70-99) Sodium Level 137 mmol/L (136-145) Potassium Level 2.2 mmol/L (3.5-5.1) Chloride Level 97 mmol/L (98-107) Carbon Dioxide Level 33 mmol/L (21-32) Anion Gap 7 (6-14) Blood Urea Nitrogen 43 mg/dL (7-20) Creatinine 1.4 mg/dL (0.6-1.0) Estimated GFR (Cockcroft-Gault) 36.5 BUN/Creatinine Ratio 31 (6-20) Glucose Level 75 mg/dL (70-99) Calcium Level 8.1 mg/dL (8.5-10.1) Total Bilirubin 0.4 mg/dL (0.2-1.0) Aspartate Amino Transf (AST/SGOT) 24 U/L (15-37) Alanine Aminotransferase (ALT/SGPT) 30 U/L (14-59) Alkaline Phosphatase 55 U/L (46-116) Total Protein 5.3 g/dL (6.4-8.2) Albumin 2.4 g/dL (3.4-5.0) Albumin/Globulin Ratio 0.8 (1.0-1.7) Microbiology 10/19/17 Blood Culture - Preliminary, Resulted NO GROWTH AFTER 1 DAY Medications Current Medications Vancomycin HCl (Vanco Per Pharmacy) 1 each PRN DAILY PRN MC SEE COMMENTS Last administered on 10/21/17 08:18; Start 10/19/17 at 22:45 Ondansetron HCl (Zofran) 4 mg PRN Q8HRS PRN IV NAUSEA/VOMITING; Start at 22:45; Stop 10/20/17 at 22:44; Status DC Acetaminophen (Tylenol) 650 mg PRN Q4HRS PRN PO FEVER Last administered on 17:25; Start 10/19/17 at 22:45; Stop 10/20/17 at 22:44; Status DC Vancomycin HCl 1.25 gm/Dextrose 250 ml @ 166.667 mls/hr 1X ONCE IV Last administered on 10/19/17 23:36; Start 10/19/17 at 23:00; Stop 10/20/17 at 00 :29; Status DC Trazodone HCl (Desyrel) 25 mg QHS PO Last administered on 10/20/17 20:39; Start 10/20/17 at 01:00; Stop 10/21/17 at 08:07; Status DC Alprazolam (Xanax) 0.25 mg PRN Q8HRS PRN PO ANXIETY / AGITATION Last administered on 10/21/17 03:54; Start 10/20/17 at 00:30; Stop 10/21/17 at 08 :04; Status DC Vancomycin HCl 750 mg/Dextrose 250 ml @ 250 mls/hr Q24H IV Last administered on 10/20/17 21:50; Start 10/20/17 at 22:00 Vancomycin HCl 1 each 1X ONCE MC ; Start 10/21/17 at 21:30; Stop 10/21/17 at 21:31 Potassium Chloride (Klor-Con) 40 meq 1X ONCE PO Last administered on 06:31; Start 10/20/17 at 06:30; Stop 10/20/17 at 06:31; Status DC Potassium Chloride (Klor-Con) 40 meq 1X ONCE PO Last administered on 08:21; Start 10/20/17 at 09:00; Stop 10/20/17 at 09:01; Status DC Potassium Chloride 50 ml @ 50 mls/hr Q1H IV ; Start 10/20/17 at 09:30; Stop at 16:10; Status DC Acetaminophen (Tylenol) 500 mg PRN Q6HRS PRN PO MILD PAIN / TEMP; Start at 12:15 Allopurinol (Zyloprim) 100 mg DAILY PO Last administered on 10/21/17 08:28; Start 10/20/17 at 13:00 Alprazolam (Xanax) 0.25 mg PRN TID PRN PO ANXIETY / AGITATION; Start 10/20/17 at 12:15 Furosemide (Lasix) 80 mg BID92 PO ; Start 10/20/17 at 14:00; Stop 10/20/17 at 15:28; Status DC Guaifenesin (MUCINEX ER with DM) 1 tab PRN Q12HRS PO ; Start 10/20/17 at 12:15 Levothyroxine Sodium (Synthroid) 100 mcg DAILY07 PO Last administered on 08:27; Start 10/21/17 at 09:00 Propafenone HCl (Rythmol) 150 mg BID PO Last administered on 10/20/17 20:39; Start 10/20/17 at 13:00 Spironolactone (Aldactone) 25 mg DAILY PO ; Start 10/20/17 at 13:00 Tramadol HCl (Ultram) 50 mg PRN Q6HRS PRN PO PAIN Last administered on 03:54; Start 10/20/17 at 12:15 Trazodone HCl (Desyrel) 25 mg HS PO ; Start 10/20/17 at 21:00 Non-Formulary Medication 1,000 mg BID PO ; Start 10/20/17 at 21:00; Stop 10/20 at 21:00; Status DC Calcium/Vitamin D (Oscal D 500mg/ 200uts) 1 tab BIDWMEALS PO Last administered on 10/21/17 08:29; Start 10/20/17 at 17:00 Cetirizine HCl (ZyrTEC) 10 mg DAILY PO Last administered on 10/21/17 08:27; Start 10/20/17 at 13:00 Fish Oil (Fish Oil) 1,000 mg DAILY PO Last administered on 10/21/17 08:29; Start 10/20/17 at 13:00 Pantoprazole Sodium (Protonix) 40 mg DAILYAC PO Last administered on 08:19; Start 10/20/17 at 13:00 Paroxetine HCl (Paxil) 20 mg DAILY PO Last administered on 10/21/17 08:28; Start 10/20/17 at 13:00 Artificial Tears (Artificial Tears) 1 drop DAILY OU ; Start 10/20/17 at 13:00; Stop 10/20/17 at 13:00; Status DC Hydroxychloroquine Sulfate (Plaquenil) 200 mg DAILY08 PO Last administered on 10/21/17 08:29; Start 10/20/17 at 13:00 Ferrous Sulfate (Feosol) 325 mg DAILYWBKFT PO Last administered on 10/21/17 08:29; Start 10/20/17 at 13:00 Non-Formulary Medication 1 tab BID .ROUTE ; Start 10/20/17 at 21:00; Stop at 21:00; Status DC Artificial Tears (Artificial Tears) 1 drop DAILY OU ; Start 10/21/17 at 09:00 Calcitriol (Rocaltrol) 0.25 mcg DAILY PO Last administered on 10/21/17 08:28 ; Start 10/20/17 at 14:00 Warfarin Sodium (Coumadin) 2.5 mg 1X ONCE PO Last administered on 10/20/17 16:32; Start 10/20/17 at 14:45; Stop 10/20/17 at 14:56; Status DC Warfarin Sodium (Coumadin Per Physician) 1 each PRN DAILY PRN MC SEE COMMENTS Last administered on 10/21/17 08:26; Start 10/20/17 at 14:45 Furosemide (Lasix) 40 mg DAILY PO Last administered on 10/21/17 08:28; Start 10/21/17 at 09:00 Potassium Chloride (Klor-Con) 40 meq 1X ONCE PO Last administered on 08:28; Start 10/21/17 at 07:30; Stop 10/21/17 at 07:31; Status DC Potassium Chloride (Klor-Con) 40 meq 1X ONCE PO ; Start 10/21/17 at 12:00; Stop 10/21/17 at 12:01 Lactobacillus Rhamnosus (Culturelle) 1 cap BID PO ; Start 10/21/17 at 21:00 Potassium Chloride (Klor-Con) 40 meq 1X ONCE PO Last administered on 08:34; Start 10/21/17 at 08:15; Stop 10/21/17 at 08:20; Status DC Active Scripts Active Potassium Chloride 20 Meq Tablet.er 20 Meq PO 5XDAY 90 Days Aldactone (Spironolactone) 25 Mg Tablet 1 Tab PO DAILY Reported Calcitriol 0.25 Mcg Capsule Metolazone 5 Mg Tablet Furosemide 80 Mg Tablet 1 Tab PO BID Methotrexate (Methotrexate Sodium) 2.5 Mg Tablet 7 Tab PO SATURDAY [hydroxyl-chloroquine] 200 Mg PO DAILY08 Calcium + Vitamin D Tablet (Calcium Carbonate/Vitamin D3) 1 Each Tablet 1 Each PO BID Claritin (Loratadine) 10 Mg Tablet 1 Tab PO DAILY PRN Coumadin (Warfarin Sodium) 6 Mg Tablet 6 Mg PO ,,,, Acetaminophen 500 Mg Tablet 1 Tab PO PRN Q6HRS PRN Mucinex Dm Er 600-30 Mg Tablet (Guaifenesin/Dextromethorphan) 1 Each Tab.er.12h 1 Tab PO PRN Q12HRS Trazodone Hcl 50 Mg Tablet 25 Mg PO HS Propafenone Hcl 150 Mg Tablet 150 Mg PO BID Systane 0.3-0.4% Eye Drops (Propylene Glycol/Peg 400/Pf) 1 Each Droperette 1 Each OP DAILY Xanax (Alprazolam) 0.25 Mg Tablet 1 Tab PO PRN TID PRN Biotin 1 Mg Capsule 1,000 Mg PO BID [lutein] 1 Tab BID [Iron ] 1 Tab DAILY Omeprazole 40 Mg Capsule.dr 40 Mg PO DAILY Tramadol Hcl 50 Mg Tablet 50 Mg PO PRN Q6HRS PRN Fish Oil 1,000 Mg Softgel ([place]-3 Fatty Acids/Fish Oil) 1 Each Capsule 1 Each PO DAILY Allopurinol 100 Mg Tablet 100 Mg PO DAILY Paxil (Paroxetine Hcl) 40 Mg Tablet 20 Mg PO DAILY Levothyroxine Sodium 100 Mcg Tablet 100 Mcg PO DAILY Vitals/I & O Vital Sign - Last 24 Hours 10/20/17 10/20/17 10/20/17 10/20/17 11:00 13:39 13:41 14:39 Temp 97.8 97.8 Pulse 73 60 Resp 18 B/P (MAP) 103/56 (72) 103/56 Pulse Ox 100 100 97 O2 Delivery Room Air Room Air 10/20/17 10/20/17 10/20/17 10/20/17 15:07 19:15 19:25 20:39 Temp 97.8 97.8 97.8 97.8 Pulse 66 63 63 Resp 18 18 B/P (MAP) 93/50 (64) 91/40 (57) 91/40 Pulse Ox 97 98 O2 Delivery Room Air Room Air Room Air 10/20/17 10/20/17 10/21/17 10/21/17 20:40 23:05 03:25 03:54 Temp 97.8 97.8 97.8 97.8 Pulse 61 65 Resp 20 18 18 20 B/P (MAP) 88/51 (63) 98/52 (67) Pulse Ox 98 98 99 O2 Delivery Room Air Room Air Room Air Room Air 10/21/17 10/21/17 10/21/17 04:54 07:00 08:00 Temp 97.3 97.3 Pulse 66 Resp 20 19 B/P (MAP) 104/60 (75) Pulse Ox 100 O2 Delivery Room Air Room Air Room Air Intake and Output 10/20/17 10/20/17 10/21/17 14:59 22:59 06:59 Intake Total 600 ml 240 ml 240 ml Output Total 1000 ml 900 ml Balance 600 ml -760 ml -660 ml CJ DIAL MD Oct 21, 2017 10:04
[2017-10-21 11:00] VITALS: BP_SYST 84; BP_SYST 88; BP_DIAS 42; BP_DIAS 46
--- NOTE | 2017-10-21 11:16 | PDOC ---
Renal-Progress Notes Subjective Notes Notes NO NEW COMPLAINTS History of Present Illness Hx of present illness STABLE Vitals Vitals Vital Signs Date Time Temp Pulse Resp B/P (MAP) Pulse Ox O2 Delivery O2 Flow Rate FiO2 10/21/17 08:00 Room Air 10/21/17 07:00 97.3 66 19 104/60 (75) 100 97.3 Weight Weight [ ] I.O. Intake and Output Intake and Output 10/21/17 07:00 Intake Total 1080 ml Output Total 1900 ml Balance -820 ml Intake Oral 1080 ml Output Urine Total 1900 ml Labs Labs Laboratory Tests Test 10/20/17 12:27 10/20/17 16:56 10/20/17 20:44 10/20/17 21:26 Sodium Level 138 mmol/L (136-145) Potassium Level 3.5 mmol/L (3.5-5.1) Chloride Level 99 mmol/L (98-107) Carbon Dioxide Level 39 mmol/L (21-32) Anion Gap 0 (6-14) Blood Urea Nitrogen 34 mg/dL (7-20) Creatinine 1.3 mg/dL (0.6-1.0) Estimated GFR (Cockcroft-Gault) 39.7 Glucose Level 70 mg/dL (70-99) Calcium Level 8.5 mg/dL (8.5-10.1) Glucose (Fingerstick) 173 mg/dL (70-99) 54 mg/dL (70-99) 209 mg/dL (70-99) Test 10/21/17 04:20 10/21/17 07:55 Sodium Level 137 mmol/L (136-145) Potassium Level 2.2 mmol/L (3.5-5.1) Chloride Level 97 mmol/L (98-107) Carbon Dioxide Level 33 mmol/L (21-32) Anion Gap 7 (6-14) Blood Urea Nitrogen 43 mg/dL (7-20) Creatinine 1.4 mg/dL (0.6-1.0) Estimated GFR (Cockcroft-Gault) 36.5 BUN/Creatinine Ratio 31 (6-20) Glucose Level 75 mg/dL (70-99) Calcium Level 8.1 mg/dL (8.5-10.1) Total Bilirubin 0.4 mg/dL (0.2-1.0) Aspartate Amino Transf (AST/SGOT) 24 U/L (15-37) Alanine Aminotransferase (ALT/SGPT) 30 U/L (14-59) Alkaline Phosphatase 55 U/L (46-116) Total Protein 5.3 g/dL (6.4-8.2) Albumin 2.4 g/dL (3.4-5.0) Albumin/Globulin Ratio 0.8 (1.0-1.7) Glucose (Fingerstick) 78 mg/dL (70-99) Micro Micro Microbiology 10/19/17 Blood Culture - Preliminary, Resulted NO GROWTH AFTER 1 DAY Review of Systems Constitutional: yes: weakness, alert, oriented Ears/Nose/Throat: Yes: no symptom reported Eyes: Yes: no symptom reported Pulmonary: Yes no symptom reported Cardiovascular: Yes no symptom reported Gastrointestional: Yes: constipation Genitourinary: Yes: no symptom reported Musculoskeletal: Yes: muscle stiffness Skin: Yes no symptom reported Psychiatric/Neurological: Yes: no symptom reported Endocrine: Yes: no symptom reported Physical Exam General Appearance: no apparent distress Skin: warm Respiratory: decreased breath sounds Heart: S1S2 Abdomen: soft, bowel sounds present Genitourinary: bladder flat Extremities: pulses present, atrophy Neurology: alert, oriented Musculoskeletal: Osteoarthritis, Stiffness Assessment Assessment IMP CKD STAGE 3-STABLE HYPOKALEMIA RIGHT LE CELLULITIS HYPERVOLEMIA/CHF PLAN CONT WITH LASIX REPLACE K CHECK MAG ANTIBIOTICS NADIA EVANS MD Oct 21, 2017 11:16
--- NOTE | 2017-10-21 12:51 | PDOC ---
PROGRESS NOTES Chief Complaint Chief Complaint Weakness A-Fib Anxiety Cancer CHF Depression GERD Hypothyroid Lung Disease TIA History of Present Illness History of Present Illness Pt was seen at the bedside. She notes being very tired. 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 General: Alert, Cooperative, No acute distress Heart: Regular rate, Normal S1, Normal S2, No murmurs Lungs: Clear, Other (No rales, rhonchi, wheezes) Extremities: No clubbing, No cyanosis Labs LABS Laboratory Tests Test 10/20/17 16:56 10/20/17 20:44 10/20/17 21:26 10/21/17 04:20 Glucose (Fingerstick) 173 mg/dL (70-99) 54 mg/dL (70-99) 209 mg/dL (70-99) Sodium Level 137 mmol/L (136-145) Potassium Level 2.2 mmol/L (3.5-5.1) Chloride Level 97 mmol/L (98-107) Carbon Dioxide Level 33 mmol/L (21-32) Anion Gap 7 (6-14) Blood Urea Nitrogen 43 mg/dL (7-20) Creatinine 1.4 mg/dL (0.6-1.0) Estimated GFR (Cockcroft-Gault) 36.5 BUN/Creatinine Ratio 31 (6-20) Glucose Level 75 mg/dL (70-99) Hemoglobin A1c 5.1 % (4.8-5.6) Calcium Level 8.1 mg/dL (8.5-10.1) Total Bilirubin 0.4 mg/dL (0.2-1.0) Aspartate Amino Transf (AST/SGOT) 24 U/L (15-37) Alanine Aminotransferase (ALT/SGPT) 30 U/L (14-59) Alkaline Phosphatase 55 U/L (46-116) Total Protein 5.3 g/dL (6.4-8.2) Albumin 2.4 g/dL (3.4-5.0) Albumin/Globulin Ratio 0.8 (1.0-1.7) Test 10/21/17 07:55 Glucose (Fingerstick) 78 mg/dL (70-99) Review of Systems Review of Systems Denies dizziness, headache, chest pain, shortness of breath Assessment and Plan Assessmemt and Plan Problems Medical Problems: (1) Cellulitis Status: Acute ASSESSMENT: Weakness A-Fib Anxiety Cancer CHF Depression GERD Hypothyroid Lung Disease TIA PLAN: Check Mg for chronic hypokalemia Continue cardiac monitoring Continue Abx Continue current meds Continue monitoring labs PT/OT Appreciate subspecialty input SNU eval Problems: Comment Review of Relevant I have reviewed the following items leila (where applicable) has been applied. Labs Laboratory Tests Test 10/19/17 21:11 10/19/17 21:30 10/19/17 21:35 10/20/17 02:50 Urine Collection Type Unknown Urine Color Yellow Urine Clarity Clear Urine pH 7.5 Urine Specific [place] 1.010 Urine Protein Negative mg/dL (NEG-TRACE) Urine Glucose (UA) Negative mg/dL (NEG) Urine Ketones (Stick) Negative mg/dL (NEG) Urine Blood Negative (NEG) Urine Nitrite Negative (NEG) Urine Bilirubin Negative (NEG) Urine Urobilinogen Dipstick 0.2 mg/dL (0.2 mg/dL) Urine Leukocyte Esterase Negative (NEG) Urine RBC 1-2 /HPF (0-2) Urine WBC 1-4 /HPF (0-4) Urine Bacteria 0 /HPF (0-FEW) Urine Hyaline Casts Many /HPF Urine Opiates Screen Neg (NEG) Urine Methadone Screen Neg (NEG) Urine Barbiturates Neg (NEG) Urine Phencyclidine Screen Neg (NEG) Urine Amphetamine/Methamphetamine Neg (NEG) Urine Benzodiazepines Screen Neg (NEG) Urine Cocaine Screen Neg (NEG) Urine Cannabinoids Screen Neg (NEG) Urine Ethyl Alcohol Neg (NEG) White Blood Count 7.7 x10^3/uL (4.0-11.0) 5.9 x10^3/uL (4.0-11.0) Red Blood Count 3.35 x10^6/uL (3.50-5.40) 3.01 x10^6/uL (3.50-5.40) Hemoglobin 11.3 g/dL (12.0-15.5) 9.9 g/dL (12.0-15.5) Hematocrit 33.8 % (36.0-47.0) 29.7 % (36.0-47.0) Mean Corpuscular Volume 101 fL (79-100) 99 fL (79-100) Mean Corpuscular Hemoglobin 34 pg (25-35) 33 pg (25-35) Mean Corpuscular Hemoglobin Concent 33 g/dL (31-37) 33 g/dL (31-37) Red Cell Distribution Width 18.0 % (11.5-14.5) 17.4 % (11.5-14.5) Platelet Count 156 x10^3/uL (140-400) 140 x10^3/uL (140-400) Neutrophils (%) (Auto) 87 % (31-73) 79 % (31-73) Lymphocytes (%) (Auto) 9 % (24-48) 17 % (24-48) Monocytes (%) (Auto) 3 % (0-9) 4 % (0-9) Eosinophils (%) (Auto) 0 % (0-3) 0 % (0-3) Basophils (%) (Auto) 1 % (0-3) 0 % (0-3) Neutrophils # (Auto) 6.7 x10^3uL (1.8-7.7) 4.6 x10^3uL (1.8-7.7) Lymphocytes # (Auto) 0.7 x10^3/uL (1.0-4.8) 1.0 x10^3/uL (1.0-4.8) Monocytes # (Auto) 0.2 x10^3/uL (0.0-1.1) 0.2 x10^3/uL (0.0-1.1) Eosinophils # (Auto) 0.0 x10^3/uL (0.0-0.7) 0.0 x10^3/uL (0.0-0.7) Basophils # (Auto) 0.0 x10^3/uL (0.0-0.2) 0.0 x10^3/uL (0.0-0.2) Segmented Neutrophils % 85 % (35-66) Band Neutrophils % 3 % (0-9) Lymphocytes % 11 % (24-48) Monocytes % 1 % (0-10) Platelet Estimate Adequate (ADEQUATE) Prothrombin Time 25.6 SEC (11.7-14.0) Prothromb Time International Ratio 2.5 (0.8-1.1) Sodium Level 134 mmol/L (136-145) Potassium Level 3.2 mmol/L (3.5-5.1) Chloride Level 95 mmol/L (98-107) Carbon Dioxide Level 34 mmol/L (21-32) Anion Gap 5 (6-14) Blood Urea Nitrogen 40 mg/dL (7-20) Creatinine 1.4 mg/dL (0.6-1.0) Estimated GFR (Cockcroft-Gault) 36.5 Glucose Level 109 mg/dL (70-99) Calcium Level 9.4 mg/dL (8.5-10.1) Magnesium Level 2.1 mg/dL (1.8-2.4) Total Bilirubin 0.6 mg/dL (0.2-1.0) Direct Bilirubin 0.2 mg/dL (0.0-0.2) Aspartate Amino Transf (AST/SGOT) 43 U/L (15-37) Alanine Aminotransferase (ALT/SGPT) 46 U/L (14-59) Alkaline Phosphatase 87 U/L (46-116) Creatine Kinase 57 U/L (26-192) Creatine Kinase MB (Mass) 1.0 ng/mL (0.0-3.6) Creatine Kinase MB Relative Index 1.8 % (0-4) Troponin I Quantitative 0.077 ng/mL (0.000-0.055) 0.078 ng/mL (0.000-0.055) WE-Vvs-H-Type Natriuretic Peptide 10279 pg/mL (0-449) Total Protein 6.8 g/dL (6.4-8.2) Albumin 3.1 g/dL (3.4-5.0) Lipase 203 U/L (73-393) Lactic Acid Level 1.2 mmol/L (0.4-2.0) Test 10/20/17 03:30 10/20/17 10:50 10/20/17 12:27 10/20/17 16:56 Sodium Level 138 mmol/L (136-145) 138 mmol/L (136-145) Potassium Level 2.3 mmol/L (3.5-5.1) 3.5 mmol/L (3.5-5.1) Chloride Level 98 mmol/L (98-107) 99 mmol/L (98-107) Carbon Dioxide Level 37 mmol/L (21-32) 39 mmol/L (21-32) Anion Gap 3 (6-14) 0 (6-14) Blood Urea Nitrogen 35 mg/dL (7-20) 34 mg/dL (7-20) Creatinine 1.2 mg/dL (0.6-1.0) 1.3 mg/dL (0.6-1.0) Estimated GFR (Cockcroft-Gault) 43.6 39.7 Glucose Level 81 mg/dL (70-99) 70 mg/dL (70-99) Calcium Level 8.4 mg/dL (8.5-10.1) 8.5 mg/dL (8.5-10.1) Troponin I Quantitative 0.094 ng/mL (0.000-0.055) Glucose (Fingerstick) 173 mg/dL (70-99) Test 10/20/17 20:44 10/20/17 21:26 10/21/17 04:20 10/21/17 07:55 Glucose (Fingerstick) 54 mg/dL (70-99) 209 mg/dL (70-99) 78 mg/dL (70-99) Sodium Level 137 mmol/L (136-145) Potassium Level 2.2 mmol/L (3.5-5.1) Chloride Level 97 mmol/L (98-107) Carbon Dioxide Level 33 mmol/L (21-32) Anion Gap 7 (6-14) Blood Urea Nitrogen 43 mg/dL (7-20) Creatinine 1.4 mg/dL (0.6-1.0) Estimated GFR (Cockcroft-Gault) 36.5 BUN/Creatinine Ratio 31 (6-20) Glucose Level 75 mg/dL (70-99) Hemoglobin A1c 5.1 % (4.8-5.6) Calcium Level 8.1 mg/dL (8.5-10.1) Total Bilirubin 0.4 mg/dL (0.2-1.0) Aspartate Amino Transf (AST/SGOT) 24 U/L (15-37) Alanine Aminotransferase (ALT/SGPT) 30 U/L (14-59) Alkaline Phosphatase 55 U/L (46-116) Total Protein 5.3 g/dL (6.4-8.2) Albumin 2.4 g/dL (3.4-5.0) Albumin/Globulin Ratio 0.8 (1.0-1.7) Laboratory Tests Test 10/20/17 16:56 10/20/17 20:44 10/20/17 21:26 10/21/17 04:20 Glucose (Fingerstick) 173 mg/dL (70-99) 54 mg/dL (70-99) 209 mg/dL (70-99) Sodium Level 137 mmol/L (136-145) Potassium Level 2.2 mmol/L (3.5-5.1) Chloride Level 97 mmol/L (98-107) Carbon Dioxide Level 33 mmol/L (21-32) Anion Gap 7 (6-14) Blood Urea Nitrogen 43 mg/dL (7-20) Creatinine 1.4 mg/dL (0.6-1.0) Estimated GFR (Cockcroft-Gault) 36.5 BUN/Creatinine Ratio 31 (6-20) Glucose Level 75 mg/dL (70-99) Hemoglobin A1c 5.1 % (4.8-5.6) Calcium Level 8.1 mg/dL (8.5-10.1) Total Bilirubin 0.4 mg/dL (0.2-1.0) Aspartate Amino Transf (AST/SGOT) 24 U/L (15-37) Alanine Aminotransferase (ALT/SGPT) 30 U/L (14-59) Alkaline Phosphatase 55 U/L (46-116) Total Protein 5.3 g/dL (6.4-8.2) Albumin 2.4 g/dL (3.4-5.0) Albumin/Globulin Ratio 0.8 (1.0-1.7) Test 10/21/17 07:55 Glucose (Fingerstick) 78 mg/dL (70-99) Microbiology 10/19/17 Blood Culture - Preliminary, Resulted NO GROWTH AFTER 1 DAY Medications Current Medications Vancomycin HCl (Vanco Per Pharmacy) 1 each PRN DAILY PRN MC SEE COMMENTS Last administered on 10/21/17t 08:18; Start 10/19/17 at 22:45 Ondansetron HCl (Zofran) 4 mg PRN Q8HRS PRN IV NAUSEA/VOMITING; Start at 22:45; Stop 10/20/17 at 22:44; Status DC Acetaminophen (Tylenol) 650 mg PRN Q4HRS PRN PO FEVER Last administered on 17:25; Start 10/19/17 at 22:45; Stop 10/20/17 at 22:44; Status DC Vancomycin HCl 1.25 gm/Dextrose 250 ml @ 166.667 mls/hr 1X ONCE IV Last administered on 10/19/17 23:36; Start 10/19/17 at 23:00; Stop 10/20/17 at 00 :29; Status DC Trazodone HCl (Desyrel) 25 mg QHS PO Last administered on 10/20/17 20:39; Start 10/20/17 at 01:00; Stop 10/21/17 at 08:07; Status DC Alprazolam (Xanax) 0.25 mg PRN Q8HRS PRN PO ANXIETY / AGITATION Last administered on 10/21/17 03:54; Start 10/20/17 at 00:30; Stop 10/21/17 at 08 :04; Status DC Vancomycin HCl 750 mg/Dextrose 250 ml @ 250 mls/hr Q24H IV Last administered on 10/20/17 21:50; Start 10/20/17 at 22:00 Vancomycin HCl 1 each 1X ONCE MC ; Start 10/21/17 at 21:30; Stop 10/21/17 at 21:31 Potassium Chloride (Klor-Con) 40 meq 1X ONCE PO Last administered on 06:31; Start 10/20/17 at 06:30; Stop 10/20/17 at 06:31; Status DC Potassium Chloride (Klor-Con) 40 meq 1X ONCE PO Last administered on 08:21; Start 10/20/17 at 09:00; Stop 10/20/17 at 09:01; Status DC Potassium Chloride 50 ml @ 50 mls/hr Q1H IV ; Start 10/20/17 at 09:30; Stop at 16:10; Status DC Acetaminophen (Tylenol) 500 mg PRN Q6HRS PRN PO MILD PAIN / TEMP; Start at 12:15 Allopurinol (Zyloprim) 100 mg DAILY PO Last administered on 10/21/17 08:28; Start 10/20/17 at 13:00 Alprazolam (Xanax) 0.25 mg PRN TID PRN PO ANXIETY / AGITATION; Start 10/20/17 at 12:15 Furosemide (Lasix) 80 mg BID92 PO ; Start 10/20/17 at 14:00; Stop 10/20/17 at 15:28; Status DC Guaifenesin (MUCINEX ER with DM) 1 tab PRN Q12HRS PO ; Start 10/20/17 at 12:15 Levothyroxine Sodium (Synthroid) 100 mcg DAILY07 PO Last administered on 08:27; Start 10/21/17 at 09:00 Propafenone HCl (Rythmol) 150 mg BID PO Last administered on 10/20/17 20:39; Start 10/20/17 at 13:00 Spironolactone (Aldactone) 25 mg DAILY PO ; Start 10/20/17 at 13:00 Tramadol HCl (Ultram) 50 mg PRN Q6HRS PRN PO PAIN Last administered on 03:54; Start 10/20/17 at 12:15 Trazodone HCl (Desyrel) 25 mg HS PO ; Start 10/20/17 at 21:00 Non-Formulary Medication 1,000 mg BID PO ; Start 10/20/17 at 21:00; Stop 10/20 at 21:00; Status DC Calcium/Vitamin D (Oscal D 500mg/ 200uts) 1 tab BIDWMEALS PO Last administered on 10/21/17 08:29; Start 10/20/17 at 17:00 Cetirizine HCl (ZyrTEC) 10 mg DAILY PO Last administered on 10/21/17 08:27; Start 10/20/17 at 13:00 Fish Oil (Fish Oil) 1,000 mg DAILY PO Last administered on 10/21/17 08:29; Start 10/20/17 at 13:00 Pantoprazole Sodium (Protonix) 40 mg DAILYAC PO Last administered on 08:19; Start 10/20/17 at 13:00 Paroxetine HCl (Paxil) 20 mg DAILY PO Last administered on 10/21/17 08:28; Start 10/20/17 at 13:00 Artificial Tears (Artificial Tears) 1 drop DAILY OU ; Start 10/20/17 at 13:00; Stop 10/20/17 at 13:00; Status DC Hydroxychloroquine Sulfate (Plaquenil) 200 mg DAILY08 PO Last administered on 10/21/17 08:29; Start 10/20/17 at 13:00 Ferrous Sulfate (Feosol) 325 mg DAILYWBKFT PO Last administered on 10/21/17 08:29; Start 10/20/17 at 13:00 Non-Formulary Medication 1 tab BID .ROUTE ; Start 10/20/17 at 21:00; Stop at 21:00; Status DC Artificial Tears (Artificial Tears) 1 drop DAILY OU Last administered on 09:00; Start 10/21/17 at 09:00 Calcitriol (Rocaltrol) 0.25 mcg DAILY PO Last administered on 10/21/17 08:28 ; Start 10/20/17 at 14:00 Warfarin Sodium (Coumadin) 2.5 mg 1X ONCE PO Last administered on 10/20/17 16:32; Start 10/20/17 at 14:45; Stop 10/20/17 at 14:56; Status DC Warfarin Sodium (Coumadin Per Physician) 1 each PRN DAILY PRN MC SEE COMMENTS Last administered on 10/21/17 08:26; Start 10/20/17 at 14:45 Furosemide (Lasix) 40 mg DAILY PO Last administered on 10/21/17 08:28; Start 10/21/17 at 09:00 Potassium Chloride (Klor-Con) 40 meq 1X ONCE PO Last administered on 08:28; Start 10/21/17 at 07:30; Stop 10/21/17 at 07:31; Status DC Potassium Chloride (Klor-Con) 40 meq 1X ONCE PO ; Start 10/21/17 at 12:00; Stop 10/21/17 at 12:01; Status DC Lactobacillus Rhamnosus (Culturelle) 1 cap BID PO ; Start 10/21/17 at 21:00 Potassium Chloride (Klor-Con) 40 meq 1X ONCE PO Last administered on t 08:34; Start 10/21/17 at 08:15; Stop 10/21/17 at 08:20; Status DC Potassium Chloride (Klor-Con) 20 meq DAILYWBKFT PO ; Start 10/21/17 at 11:30 Active Scripts Active Potassium Chloride 20 Meq Tablet.er 20 Meq PO 5XDAY 90 Days Aldactone (Spironolactone) 25 Mg Tablet 1 Tab PO DAILY Reported Calcitriol 0.25 Mcg Capsule Metolazone 5 Mg Tablet Furosemide 80 Mg Tablet 1 Tab PO BID Methotrexate (Methotrexate Sodium) 2.5 Mg Tablet 7 Tab PO SATURDAY [hydroxyl-chloroquine] 200 Mg PO DAILY08 Calcium + Vitamin D Tablet (Calcium Carbonate/Vitamin D3) 1 Each Tablet 1 Each PO BID Claritin (Loratadine) 10 Mg Tablet 1 Tab PO DAILY PRN Coumadin (Warfarin Sodium) 6 Mg Tablet 6 Mg PO ,,,, Acetaminophen 500 Mg Tablet 1 Tab PO PRN Q6HRS PRN Mucinex Dm Er 600-30 Mg Tablet (Guaifenesin/Dextromethorphan) 1 Each Tab.er.12h 1 Tab PO PRN Q12HRS Trazodone Hcl 50 Mg Tablet 25 Mg PO HS Propafenone Hcl 150 Mg Tablet 150 Mg PO BID Systane 0.3-0.4% Eye Drops (Propylene Glycol/Peg 400/Pf) 1 Each Droperette 1 Each OP DAILY Xanax (Alprazolam) 0.25 Mg Tablet 1 Tab PO PRN TID PRN Biotin 1 Mg Capsule 1,000 Mg PO BID [lutein] 1 Tab BID [Iron ] 1 Tab DAILY Omeprazole 40 Mg Capsule.dr 40 Mg PO DAILY Tramadol Hcl 50 Mg Tablet 50 Mg PO PRN Q6HRS PRN Fish Oil 1,000 Mg Softgel ([place]-3 Fatty Acids/Fish Oil) 1 Each Capsule 1 Each PO DAILY Allopurinol 100 Mg Tablet 100 Mg PO DAILY Paxil (Paroxetine Hcl) 40 Mg Tablet 20 Mg PO DAILY Levothyroxine Sodium 100 Mcg Tablet 100 Mcg PO DAILY Vitals/I & O Vital Sign - Last 24 Hours 10/20/17 10/20/17 10/20/17 10/20/17 13:39 13:41 14:39 15:07 Temp 97.8 97.8 Pulse 60 66 Resp 18 B/P (MAP) 103/56 93/50 (64) Pulse Ox 100 97 97 O2 Delivery Room Air Room Air 10/20/17 10/20/17 10/20/17 10/20/17 19:15 19:25 20:39 20:40 Temp 97.8 97.8 Pulse 63 63 Resp 18 20 B/P (MAP) 91/40 (57) 91/40 Pulse Ox 98 98 O2 Delivery Room Air Room Air Room Air 10/20/17 10/21/17 10/21/17 10/21/17 23:05 03:25 03:54 04:54 Temp 97.8 97.8 97.8 97.8 Pulse 61 65 Resp 18 18 20 20 B/P (MAP) 88/51 (63) 98/52 (67) Pulse Ox 98 99 O2 Delivery Room Air Room Air Room Air Room Air 10/21/17 10/21/17 10/21/17 10/21/17 07:00 08:00 11:00 11:00 Temp 97.3 97.6 97.3 97.6 Pulse 66 63 Resp 19 19 B/P (MAP) 104/60 (75) 84/42 (56) 88/46 (60) Pulse Ox 100 100 O2 Delivery Room Air Room Air Room Air Intake and Output 10/20/17 10/20/17 10/21/17 15:00 23:00 07:00 Intake Total 600 ml 240 ml 240 ml Output Total 1200 ml 700 ml Balance 600 ml -960 ml -460 ml BRITTA MARTINEZ III DO Oct 21, 2017 12:51
[2017-10-21 15:00] VITALS: BP 107/62
--- NOTE | 2017-10-21 16:55 | RAD ---
CT cervical spine without contrast Clinical Indication: Dizziness, neck pain Comparison: CT cervical spine dated 08/10/2017 Technique: Noncontrast helical CT of the cervical spine was performed. Axial, sagittal, and coronal reconstructions were obtained. Findings: Unchanged 3 mm anterolisthesis of C4 on C5, 2 mm anterolisthesis of C5 on C6, and 2 mm anterolisthesis of C7 on T1. The vertebral body heights are maintained. Multilevel disc height loss, worse at the C6-C7 level, moderate. Multilevel mild spinal canal stenosis. Multilevel mild to moderate neural foraminal narrowing. There is no evidence of acute fracture or acute malalignment. No prevertebral soft tissue swelling is identified. Visualized soft tissues of the neck demonstrate no significant abnormalities. Incompletely visualized pacemaker leads. The visualized lung apices are clear. IMPRESSION: 1. No acute fracture or malalignment. 2. Multilevel degenerative changes with multilevel mild spinal canal stenosis and multilevel mild to moderate neural foraminal narrowing. 3. Unchanged multilevel grade 1 listhesis as above. PQRS Compliance Statement: One or more of the following individualized dose reduction techniques were utilized for this examination: 1. Automated exposure control 2. Adjustment of the mA and/or kV according to patient size 3. Use of iterative reconstruction technique
[2017-10-21] MEDS: POTASSIUM CHLORIDE 20 MEQ TABLET.ER. PO SCH (17:44)
[2017-10-21 19:55] VITALS: BP 100/55
[2017-10-21] MEDS: LACTOBACILLUS RHAMNOSUS GG 1 CAPSULE. PO SCH (21:08)
[2017-10-21] MEDS: traZODone 50 MG TABLET. PO SCH (21:09)
[2017-10-21] MEDS: VANCOMYCIN 750 MG in IV DEXTROSE 5% 250 ML IV SCH (22:27)
[2017-10-21 22:40] VITALS: BP 94/59
[2017-10-22 03:35] VITALS: BP 100/53
[2017-10-22 06:27] LABS: BASO % 1 % (0-3); EOS % 1 % (0-3); HEMATOCRIT 32.9 % (36.0-47.0); HEMOGLOBIN 10.7 g/dL (12.0-15.5); LYMPH # 1.1 x10^3/uL (1.0-4.8); LYMPH % 27 % (24-48); MEAN CORPUSCULAR HEMOGLOBIN 33 pg (25-35); MEAN CORPUSCULAR HGB CONC 33 g/dL (31-37); MEAN CORPUSCULAR VOLUME 101 fL (79-100); MONO % 7 % (0-9); NEUT % 64 % (31-73); PLATELET COUNT 151 x10^3/uL (140-400); RED BLOOD COUNT 3.26 x10^6/uL (3.50-5.40); RED CELL DISTRIBUTION WIDTH 18.1 % (11.5-14.5); WHITE BLOOD COUNT 4.2 x10^3/uL (4.0-11.0)
[2017-10-22 06:34] LABS: INR 1.7 (0.8-1.1)
[2017-10-22] MEDS: LEVOTHYROXINE 100 MCG TABLET PO SCH (06:40)
[2017-10-22 06:46] LABS: CALCIUM 8.2 mg/dL (8.5-10.1); CREATININE 1.2 mg/dL (0.6-1.0); GFR 43.6; POTASSIUM 3.3 mmol/L (3.5-5.1)
[2017-10-22 07:00] VITALS: BP 123/71
[2017-10-22] MEDS ORDERED: POTASSIUM CHLORIDE 20 MEQ TABLET.ER. PO ONE (08:30)
[2017-10-22] MEDS: SPIRONOLACTONE 25 MG TABLET PO SCH (09:00)
[2017-10-22] MEDS: FUROSEMIDE 40 MG TABLET. PO SCH (09:00)
[2017-10-22] MEDS: CALCIUM CARB/VIT D3 500/200 TABLET. PO SCH ×2 (09:12→18:14)
[2017-10-22] MEDS: PANTOPRAZOLE 40 MG TABLET.DR. PO SCH (09:12)
[2017-10-22] MEDS: POTASSIUM CHLORIDE 20 MEQ TABLET.ER. PO SCH (09:14)
[2017-10-22] MEDS: OMEGA-3 FATTY ACIDS/FISH OIL 1,000 MG CAPSULE. PO SCH (09:14)
[2017-10-22] MEDS: HYDROXYCHLOROQUINE 200 MG TABLET PO SCH (09:15)
[2017-10-22] MEDS: CALCITRIOL 0.25 MCG CAPSULE. PO SCH (09:15)
[2017-10-22] MEDS: ALLOPURINOL 100 MG TABLET. PO SCH (09:15)
[2017-10-22] MEDS: FERROUS SULFATE 325 MG TABLET. PO SCH (09:15)
[2017-10-22] MEDS: CETIRIZINE HCL 10 MG TABLET. PO SCH (09:15)
[2017-10-22] MEDS: ALPRAZolam 0.25 MG TABLET PO PRN ×2 (09:16→20:22)
[2017-10-22] MEDS: traMADol 50 MG TABLET PO PRN ×2 (09:16→18:20)
[2017-10-22] MEDS: PARoxetine 20 MG TABLET PO SCH (09:16)
[2017-10-22] MEDS: LACTOBACILLUS RHAMNOSUS GG 1 CAPSULE. PO SCH ×2 (09:17→20:19)
[2017-10-22] MEDS: PROPAFENONE 150 MG TABLET. PO SCH ×2 (09:17→20:19)
[2017-10-22] MEDS: POLYVINYL ALCOHOL 1.4% OPHTH SOLUTION 15ML BOTTLE. OU SCH (09:29)
--- NOTE | 2017-10-22 09:35 | PDOC ---
PROGRESS NOTES Subjective Subjective Patient doing well this AM. Sitting up in chair. She states that she is still very weak and "shaky", but was able to get good sleep overnight. Does not feel that she is getting any stronger since she has been in the hospital. Denies any shortness of breath or cardiac complaints. R leg continues to decrease in pain and size with IV antibiotics. No additional complaints at this time. Objective Objective Vital Signs Date Time Temp Pulse Resp B/P (MAP) Pulse Ox O2 Delivery O2 Flow Rate FiO2 10/22/17 09:17 60 94/52 10/22/17 09:16 18 99 Room Air 10/22/17 03:35 98.0 98.0 Intake and Output 10/22/17 07:00 Intake Total 1800 ml Output Total 1650 ml Balance 150 ml Intake Oral 1800 ml Output Urine Total 1650 ml Physical Exam COMMENT Alert, Awake, Oriented No Acute Distress Lungs CTAB No significant changes in cardiac exam Decreasing R leg erythema and decreasing TTP, new wound on R toe. Assessment Assessment Problems Medical Problems: (1) Cellulitis Status: Acute Plan Plan of Care Patient receiving IV antibiotics for R leg cellulitis. Continues to improve. Continues to be followed by the wound care clinic for which has been following her for some time. Neck Pain- C-spine imaging with multilevel degenerative changes and canal stenosis. PT/OT. SNU evaluation. From a cardiac standpoint her pacemaker is working normally and the elevation of the troponin is chronic. Continue cardiac monitoring. Will handle Coumadin and obtain daily INRs until d/c. Will continue to follow patient throughout her hospitalization. Comment Review of Relevant I have reviewed the following items leila (where applicable) has been applied. Labs Laboratory Tests Test 10/20/17 10:50 10/20/17 12:27 10/20/17 16:56 10/20/17 20:44 Troponin I Quantitative 0.094 ng/mL (0.000-0.055) Sodium Level 138 mmol/L (136-145) Potassium Level 3.5 mmol/L (3.5-5.1) Chloride Level 99 mmol/L (98-107) Carbon Dioxide Level 39 mmol/L (21-32) Anion Gap 0 (6-14) Blood Urea Nitrogen 34 mg/dL (7-20) Creatinine 1.3 mg/dL (0.6-1.0) Estimated GFR (Cockcroft-Gault) 39.7 Glucose Level 70 mg/dL (70-99) Calcium Level 8.5 mg/dL (8.5-10.1) Glucose (Fingerstick) 173 mg/dL (70-99) 54 mg/dL (70-99) Test 10/20/17 21:26 10/21/17 04:20 10/21/17 07:55 10/21/17 10:49 Glucose (Fingerstick) 209 mg/dL (70-99) 78 mg/dL (70-99) 114 mg/dL (70-99) Sodium Level 137 mmol/L (136-145) Potassium Level 2.2 mmol/L (3.5-5.1) Chloride Level 97 mmol/L (98-107) Carbon Dioxide Level 33 mmol/L (21-32) Anion Gap 7 (6-14) Blood Urea Nitrogen 43 mg/dL (7-20) Creatinine 1.4 mg/dL (0.6-1.0) Estimated GFR (Cockcroft-Gault) 36.5 BUN/Creatinine Ratio 31 (6-20) Glucose Level 75 mg/dL (70-99) Hemoglobin A1c 5.1 % (4.8-5.6) Calcium Level 8.1 mg/dL (8.5-10.1) Total Bilirubin 0.4 mg/dL (0.2-1.0) Aspartate Amino Transf (AST/SGOT) 24 U/L (15-37) Alanine Aminotransferase (ALT/SGPT) 30 U/L (14-59) Alkaline Phosphatase 55 U/L (46-116) Total Protein 5.3 g/dL (6.4-8.2) Albumin 2.4 g/dL (3.4-5.0) Albumin/Globulin Ratio 0.8 (1.0-1.7) Test 10/21/17 15:06 10/21/17 15:33 10/21/17 16:26 10/21/17 17:20 Glucose (Fingerstick) 52 mg/dL (70-99) 117 mg/dL (70-99) 94 mg/dL (70-99) Potassium Level 3.4 mmol/L (3.5-5.1) Test 10/21/17 21:04 10/21/17 21:40 10/22/17 06:10 10/22/17 07:37 Glucose (Fingerstick) 86 mg/dL (70-99) 73 mg/dL (70-99) Vancomycin Level Trough 11.7 mcg/mL (10.0-20.0) Vancomycin Last Dose Date 10/20/17 Vancomycin Last Dose Time 2200 White Blood Count 4.2 x10^3/uL (4.0-11.0) Red Blood Count 3.26 x10^6/uL (3.50-5.40) Hemoglobin 10.7 g/dL (12.0-15.5) Hematocrit 32.9 % (36.0-47.0) Mean Corpuscular Volume 101 fL (79-100) Mean Corpuscular Hemoglobin 33 pg (25-35) Mean Corpuscular Hemoglobin Concent 33 g/dL (31-37) Red Cell Distribution Width 18.1 % (11.5-14.5) Platelet Count 151 x10^3/uL (140-400) Neutrophils (%) (Auto) 64 % (31-73) Lymphocytes (%) (Auto) 27 % (24-48) Monocytes (%) (Auto) 7 % (0-9) Eosinophils (%) (Auto) 1 % (0-3) Basophils (%) (Auto) 1 % (0-3) Neutrophils # (Auto) 2.7 x10^3uL (1.8-7.7) Lymphocytes # (Auto) 1.1 x10^3/uL (1.0-4.8) Monocytes # (Auto) 0.3 x10^3/uL (0.0-1.1) Eosinophils # (Auto) 0.1 x10^3/uL (0.0-0.7) Basophils # (Auto) 0.0 x10^3/uL (0.0-0.2) Prothrombin Time 19.0 SEC (11.7-14.0) Prothromb Time International Ratio 1.7 (0.8-1.1) Sodium Level 141 mmol/L (136-145) Potassium Level 3.3 mmol/L (3.5-5.1) Chloride Level 102 mmol/L (98-107) Carbon Dioxide Level 33 mmol/L (21-32) Anion Gap 6 (6-14) Blood Urea Nitrogen 36 mg/dL (7-20) Creatinine 1.2 mg/dL (0.6-1.0) Estimated GFR (Cockcroft-Gault) 43.6 Glucose Level 76 mg/dL (70-99) Calcium Level 8.2 mg/dL (8.5-10.1) Magnesium Level 2.0 mg/dL (1.8-2.4) Laboratory Tests Test 10/21/17 10:49 10/21/17 15:06 10/21/17 15:33 10/21/17 16:26 Glucose (Fingerstick) 114 mg/dL (70-99) 52 mg/dL (70-99) 117 mg/dL (70-99) 94 mg/dL (70-99) Test 10/21/17 17:20 10/21/17 21:04 10/21/17 21:40 10/22/17 06:10 Potassium Level 3.4 mmol/L (3.5-5.1) 3.3 mmol/L (3.5-5.1) Glucose (Fingerstick) 86 mg/dL (70-99) Vancomycin Level Trough 11.7 mcg/mL (10.0-20.0) Vancomycin Last Dose Date 10/20/17 Vancomycin Last Dose Time 2200 White Blood Count 4.2 x10^3/uL (4.0-11.0) Red Blood Count 3.26 x10^6/uL (3.50-5.40) Hemoglobin 10.7 g/dL (12.0-15.5) Hematocrit 32.9 % (36.0-47.0) Mean Corpuscular Volume 101 fL (79-100) Mean Corpuscular Hemoglobin 33 pg (25-35) Mean Corpuscular Hemoglobin Concent 33 g/dL (31-37) Red Cell Distribution Width 18.1 % (11.5-14.5) Platelet Count 151 x10^3/uL (140-400) Neutrophils (%) (Auto) 64 % (31-73) Lymphocytes (%) (Auto) 27 % (24-48) Monocytes (%) (Auto) 7 % (0-9) Eosinophils (%) (Auto) 1 % (0-3) Basophils (%) (Auto) 1 % (0-3) Neutrophils # (Auto) 2.7 x10^3uL (1.8-7.7) Lymphocytes # (Auto) 1.1 x10^3/uL (1.0-4.8) Monocytes # (Auto) 0.3 x10^3/uL (0.0-1.1) Eosinophils # (Auto) 0.1 x10^3/uL (0.0-0.7) Basophils # (Auto) 0.0 x10^3/uL (0.0-0.2) Prothrombin Time 19.0 SEC (11.7-14.0) Prothromb Time International Ratio 1.7 (0.8-1.1) Sodium Level 141 mmol/L (136-145) Chloride Level 102 mmol/L (98-107) Carbon Dioxide Level 33 mmol/L (21-32) Anion Gap 6 (6-14) Blood Urea Nitrogen 36 mg/dL (7-20) Creatinine 1.2 mg/dL (0.6-1.0) Estimated GFR (Cockcroft-Gault) 43.6 Glucose Level 76 mg/dL (70-99) Calcium Level 8.2 mg/dL (8.5-10.1) Magnesium Level 2.0 mg/dL (1.8-2.4) Test 10/22/17 07:37 Glucose (Fingerstick) 73 mg/dL (70-99) Microbiology 10/19/17 Blood Culture - Preliminary, Resulted NO GROWTH AFTER 2 DAYS Medications Current Medications Vancomycin HCl (Vanco Per Pharmacy) 1 each PRN DAILY PRN MC SEE COMMENTS Last administered on 10/21/17 23:06; Start 10/19/17 at 22:45 Ondansetron HCl (Zofran) 4 mg PRN Q8HRS PRN IV NAUSEA/VOMITING; Start at 22:45; Stop 10/20/17 at 22:44; Status DC Acetaminophen (Tylenol) 650 mg PRN Q4HRS PRN PO FEVER Last administered on 17:25; Start 10/19/17 at 22:45; Stop 10/20/17 at 22:44; Status DC Vancomycin HCl 1.25 gm/Dextrose 250 ml @ 166.667 mls/hr 1X ONCE IV Last administered on 10/19/17 23:36; Start 10/19/17 at 23:00; Stop 10/20/17 at 00 :29; Status DC Trazodone HCl (Desyrel) 25 mg QHS PO Last administered on 10/20/17 20:39; Start 10/20/17 at 01:00; Stop 10/21/17 at 08:07; Status DC Alprazolam (Xanax) 0.25 mg PRN Q8HRS PRN PO ANXIETY / AGITATION Last administered on 10/21/17 03:54; Start 10/20/17 at 00:30; Stop 10/21/17 at 08 :04; Status DC Vancomycin HCl 750 mg/Dextrose 250 ml @ 250 mls/hr Q24H IV Last administered on 10/21/17 22:27; Start 10/20/17 at 22:00 Vancomycin HCl 1 each 1X ONCE MC Last administered on 10/21/17 21:30; Start 10/21/17 at 21:30; Stop 10/21/17 at 21:31; Status DC Potassium Chloride (Klor-Con) 40 meq 1X ONCE PO Last administered on 06:31; Start 10/20/17 at 06:30; Stop 10/20/17 at 06:31; Status DC Potassium Chloride (Klor-Con) 40 meq 1X ONCE PO Last administered on 08:21; Start 10/20/17 at 09:00; Stop 10/20/17 at 09:01; Status DC Potassium Chloride 50 ml @ 50 mls/hr Q1H IV ; Start 10/20/17 at 09:30; Stop at 16:10; Status DC Acetaminophen (Tylenol) 500 mg PRN Q6HRS PRN PO MILD PAIN / TEMP; Start at 12:15 Allopurinol (Zyloprim) 100 mg DAILY PO Last administered on 10/22/17 09:15; Start 10/20/17 at 13:00 Alprazolam (Xanax) 0.25 mg PRN TID PRN PO ANXIETY / AGITATION Last administered on 10/22/17 09:16; Start 10/20/17 at 12:15 Furosemide (Lasix) 80 mg BID92 PO ; Start 10/20/17 at 14:00; Stop 10/20/17 at 15:28; Status DC Guaifenesin (MUCINEX ER with DM) 1 tab PRN Q12HRS PO ; Start 10/20/17 at 12:15 Levothyroxine Sodium (Synthroid) 100 mcg DAILY07 PO Last administered on 06:40; Start 10/21/17 at 09:00 Propafenone HCl (Rythmol) 150 mg BID PO Last administered on 10/22/17 09:17; Start 10/20/17 at 13:00 Spironolactone (Aldactone) 25 mg DAILY PO ; Start 10/20/17 at 13:00 Tramadol HCl (Ultram) 50 mg PRN Q6HRS PRN PO PAIN Last administered on 09:16; Start 10/20/17 at 12:15 Trazodone HCl (Desyrel) 25 mg HS PO Last administered on 10/21/17 21:09; Start 10/20/17 at 21:00 Non-Formulary Medication 1,000 mg BID PO ; Start 10/20/17 at 21:00; Stop 10/20 at 21:00; Status DC Calcium/Vitamin D (Oscal D 500mg/ 200uts) 1 tab BIDWMEALS PO Last administered on 10/22/17 09:12; Start 10/20/17 at 17:00 Cetirizine HCl (ZyrTEC) 10 mg DAILY PO Last administered on 10/22/17 09:15; Start 10/20/17 at 13:00 Fish Oil (Fish Oil) 1,000 mg DAILY PO Last administered on 10/22/17 09:14; Start 10/20/17 at 13:00 Pantoprazole Sodium (Protonix) 40 mg DAILYAC PO Last administered on 09:12; Start 10/20/17 at 13:00 Paroxetine HCl (Paxil) 20 mg DAILY PO Last administered on 10/22/17 09:16; Start 10/20/17 at 13:00 Artificial Tears (Artificial Tears) 1 drop DAILY OU ; Start 10/20/17 at 13:00; Stop 10/20/17 at 13:00; Status DC Hydroxychloroquine Sulfate (Plaquenil) 200 mg DAILY08 PO Last administered on 10/22/17 09:15; Start 10/20/17 at 13:00 Ferrous Sulfate (Feosol) 325 mg DAILYWBKFT PO Last administered on 10/22/17 09:15; Start 10/20/17 at 13:00 Non-Formulary Medication 1 tab BID .ROUTE ; Start 10/20/17 at 21:00; Stop at 21:00; Status DC Artificial Tears (Artificial Tears) 1 drop DAILY OU Last administered on 09:29; Start 10/21/17 at 09:00 Calcitriol (Rocaltrol) 0.25 mcg DAILY PO Last administered on 10/22/17 09:15 ; Start 10/20/17 at 14:00 Warfarin Sodium (Coumadin) 2.5 mg 1X ONCE PO Last administered on 10/20/17 16:32; Start 10/20/17 at 14:45; Stop 10/20/17 at 14:56; Status DC Warfarin Sodium (Coumadin Per Physician) 1 each PRN DAILY PRN MC SEE COMMENTS Last administered on 10/21/17 08:26; Start 10/20/17 at 14:45 Furosemide (Lasix) 40 mg DAILY PO Last administered on 10/21/17 08:28; Start 10/21/17 at 09:00 Potassium Chloride (Klor-Con) 40 meq 1X ONCE PO Last administered on 08:28; Start 10/21/17 at 07:30; Stop 10/21/17 at 07:31; Status DC Potassium Chloride (Klor-Con) 40 meq 1X ONCE PO Last administered on 13:11; Start 10/21/17 at 12:00; Stop 10/21/17 at 12:01; Status DC Lactobacillus Rhamnosus (Culturelle) 1 cap BID PO Last administered on 09:17; Start 10/21/17 at 21:00 Potassium Chloride (Klor-Con) 40 meq 1X ONCE PO Last administered on 08:34; Start 10/21/17 at 08:15; Stop 10/21/17 at 08:20; Status DC Potassium Chloride (Klor-Con) 20 meq DAILYWBKFT PO Last administered on 09:14; Start 10/21/17 at 11:30 Warfarin Sodium (Coumadin Per Physician) 1 each PRN DAILY PRN MC SEE COMMENTS; Start 10/21/17 at 14:45; Stop 10/21/17 at 14:56; Status DC Potassium Chloride (Klor-Con) 40 meq 1X ONCE PO Last administered on t 09:13; Start 10/22/17 at 08:30; Stop 10/22/17 at 08:31; Status DC Active Scripts Active Potassium Chloride 20 Meq Tablet.er 20 Meq PO DAY 90 Days Aldactone (Spironolactone) 25 Mg Tablet 1 Tab PO DAILY Reported Calcitriol 0.25 Mcg Capsule Metolazone 5 Mg Tablet Furosemide 80 Mg Tablet 1 Tab PO BID Methotrexate (Methotrexate Sodium) 2.5 Mg Tablet 7 Tab PO SATURDAY [hydroxyl-chloroquine] 200 Mg PO DAILY08 Calcium + Vitamin D Tablet (Calcium Carbonate/Vitamin D3) 1 Each Tablet 1 Each PO BID Claritin (Loratadine) 10 Mg Tablet 1 Tab PO DAILY PRN Coumadin (Warfarin Sodium) 6 Mg Tablet 6 Mg PO ,,,, Acetaminophen 500 Mg Tablet 1 Tab PO PRN Q6HRS PRN Mucinex Dm Er 600-30 Mg Tablet (Guaifenesin/Dextromethorphan) 1 Each Tab.er.12h 1 Tab PO PRN Q12HRS Trazodone Hcl 50 Mg Tablet 25 Mg PO HS Propafenone Hcl 150 Mg Tablet 150 Mg PO BID Systane 0.3-0.4% Eye Drops (Propylene Glycol/Peg 400/Pf) 1 Each Droperette 1 Each OP DAILY Xanax (Alprazolam) 0.25 Mg Tablet 1 Tab PO PRN TID PRN Biotin 1 Mg Capsule 1,000 Mg PO BID [lutein] 1 Tab BID [Iron ] 1 Tab DAILY Omeprazole 40 Mg Capsule.dr 40 Mg PO DAILY Tramadol Hcl 50 Mg Tablet 50 Mg PO PRN Q6HRS PRN Fish Oil 1,000 Mg Softgel ([place]-3 Fatty Acids/Fish Oil) 1 Each Capsule 1 Each PO DAILY Allopurinol 100 Mg Tablet 100 Mg PO DAILY Paxil (Paroxetine Hcl) 40 Mg Tablet 20 Mg PO DAILY Levothyroxine Sodium 100 Mcg Tablet 100 Mcg PO DAILY Vitals/I & O Vital Sign - Last 24 Hours 10/21/17 10/21/17 10/21/17 10/21/17 11:00 11:00 13:11 14:11 Temp 97.6 97.6 Pulse 63 Resp 19 17 B/P (MAP) 84/42 (56) 88/46 (60) Pulse Ox 100 100 100 O2 Delivery Room Air Room Air Room Air 10/21/17 10/21/17 10/21/17 10/21/17 15:00 19:55 20:00 21:10 Temp 97.6 98.1 97.6 98.1 Pulse 63 60 64 Resp 19 18 B/P (MAP) 107/62 (77) 100/55 (70) 90/47 Pulse Ox 99 98 O2 Delivery Room Air Room Air Room Air 10/21/17 10/21/17 10/21/17 10/22/17 21:15 22:15 22:40 03:35 Temp 97.6 98.0 97.6 98.0 Pulse 61 60 Resp 20 20 20 18 B/P (MAP) 94/59 (71) 100/53 (69) Pulse Ox 98 99 O2 Delivery Room Air Room Air 10/22/17 10/22/17 09:16 09:17 Pulse 60 Resp 18 B/P (MAP) 94/52 Pulse Ox 99 O2 Delivery Room Air Intake and Output 10/21/17 10/21/17 10/22/17 15:00 23:00 07:00 Intake Total 1500 ml 300 ml Output Total 1050 ml 600 ml Balance 450 ml -300 ml CJ DIAL MD Oct 22, 2017 09:35
[2017-10-22] MEDS: VANCOMYCIN PER PHARMACY MC PRN (10:14)
[2017-10-22 11:00] VITALS: BP 108/62
--- NOTE | 2017-10-22 11:53 | PDOC ---
Renal-Progress Notes Subjective Notes Notes NONE History of Present Illness Hx of present illness NO CHANGE Vitals Vitals Vital Signs Date Time Temp Pulse Resp B/P (MAP) Pulse Ox O2 Delivery O2 Flow Rate FiO2 10/22/17 10:16 18 99 Room Air 10/22/17 09:17 60 94/52 10/22/17 07:00 98.0 98.0 Weight Weight [ ] I.O. Intake and Output Intake and Output 10/22/17 07:00 Intake Total 1800 ml Output Total 1650 ml Balance 150 ml Intake Oral 1800 ml Output Urine Total 1650 ml Labs Labs Laboratory Tests Test 10/21/17 15:06 10/21/17 15:33 10/21/17 16:26 10/21/17 17:20 Glucose (Fingerstick) 52 mg/dL (70-99) 117 mg/dL (70-99) 94 mg/dL (70-99) Potassium Level 3.4 mmol/L (3.5-5.1) Test 10/21/17 21:04 10/21/17 21:40 10/22/17 06:10 10/22/17 07:37 Glucose (Fingerstick) 86 mg/dL (70-99) 73 mg/dL (70-99) Vancomycin Level Trough 11.7 mcg/mL (10.0-20.0) Vancomycin Last Dose Date 10/20/17 Vancomycin Last Dose Time 2200 White Blood Count 4.2 x10^3/uL (4.0-11.0) Red Blood Count 3.26 x10^6/uL (3.50-5.40) Hemoglobin 10.7 g/dL (12.0-15.5) Hematocrit 32.9 % (36.0-47.0) Mean Corpuscular Volume 101 fL (79-100) Mean Corpuscular Hemoglobin 33 pg (25-35) Mean Corpuscular Hemoglobin Concent 33 g/dL (31-37) Red Cell Distribution Width 18.1 % (11.5-14.5) Platelet Count 151 x10^3/uL (140-400) Neutrophils (%) (Auto) 64 % (31-73) Lymphocytes (%) (Auto) 27 % (24-48) Monocytes (%) (Auto) 7 % (0-9) Eosinophils (%) (Auto) 1 % (0-3) Basophils (%) (Auto) 1 % (0-3) Neutrophils # (Auto) 2.7 x10^3uL (1.8-7.7) Lymphocytes # (Auto) 1.1 x10^3/uL (1.0-4.8) Monocytes # (Auto) 0.3 x10^3/uL (0.0-1.1) Eosinophils # (Auto) 0.1 x10^3/uL (0.0-0.7) Basophils # (Auto) 0.0 x10^3/uL (0.0-0.2) Prothrombin Time 19.0 SEC (11.7-14.0) Prothromb Time International Ratio 1.7 (0.8-1.1) Sodium Level 141 mmol/L (136-145) Potassium Level 3.3 mmol/L (3.5-5.1) Chloride Level 102 mmol/L (98-107) Carbon Dioxide Level 33 mmol/L (21-32) Anion Gap 6 (6-14) Blood Urea Nitrogen 36 mg/dL (7-20) Creatinine 1.2 mg/dL (0.6-1.0) Estimated GFR (Cockcroft-Gault) 43.6 Glucose Level 76 mg/dL (70-99) Calcium Level 8.2 mg/dL (8.5-10.1) Magnesium Level 2.0 mg/dL (1.8-2.4) Micro Micro Microbiology 10/19/17 Blood Culture - Preliminary, Resulted NO GROWTH AFTER 2 DAYS Review of Systems Constitutional: yes: weakness, alert, oriented Ears/Nose/Throat: Yes: no symptom reported Eyes: Yes: no symptom reported Pulmonary: Yes no symptom reported Cardiovascular: Yes no symptom reported Gastrointestional: Yes: constipation Genitourinary: Yes: no symptom reported Musculoskeletal: Yes: muscle stiffness Skin: Yes no symptom reported Psychiatric/Neurological: Yes: no symptom reported Endocrine: Yes: no symptom reported Physical Exam General Appearance: no apparent distress Skin: warm Respiratory: decreased breath sounds Heart: S1S2 Abdomen: soft, bowel sounds present Genitourinary: bladder flat Extremities: pulses present, atrophy Neurology: alert, oriented Musculoskeletal: Osteoarthritis, Stiffness Assessment Assessment IMP CKD STAGE 3-STABLE HYPOKALEMIA-BETTER RIGHT LE CELLULITIS HYPERVOLEMIA/CHF PLAN CONT WITH LASIX REPLACE K NEEDED CHECK MAG ANTIBIOTICS EVANS,NADIA S MD Oct 22, 2017 11:53
--- NOTE | 2017-10-22 13:24 | PDOC ---
PROGRESS NOTES Chief Complaint Chief Complaint Weakness A-Fib Anxiety Cancer CHF Depression GERD Hypothyroid Lung Disease TIA History of Present Illness History of Present Illness Pt was siting in chair, dressed in hospital attire, eating her lunch. She reports getting good sleep though still feeling tired, has an "ok" appetite, had a bowel movement today, and urinated today. 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 General: Alert, Cooperative, No acute distress Heart: Regular rate, Normal S1, Normal S2, No murmurs Lungs: Clear, Other (No rales, rhonchi, wheezes) Extremities: No clubbing, No cyanosis, Other (Erythema on right leg is significantly reduced) Labs LABS Laboratory Tests Test 10/21/17 15:06 10/21/17 15:33 10/21/17 16:26 10/21/17 17:20 Glucose (Fingerstick) 52 mg/dL (70-99) 117 mg/dL (70-99) 94 mg/dL (70-99) Potassium Level 3.4 mmol/L (3.5-5.1) Test 10/21/17 21:04 10/21/17 21:40 10/22/17 06:10 10/22/17 07:37 Glucose (Fingerstick) 86 mg/dL (70-99) 73 mg/dL (70-99) Vancomycin Level Trough 11.7 mcg/mL (10.0-20.0) Vancomycin Last Dose Date 10/20/17 Vancomycin Last Dose Time 2200 White Blood Count 4.2 x10^3/uL (4.0-11.0) Red Blood Count 3.26 x10^6/uL (3.50-5.40) Hemoglobin 10.7 g/dL (12.0-15.5) Hematocrit 32.9 % (36.0-47.0) Mean Corpuscular Volume 101 fL (79-100) Mean Corpuscular Hemoglobin 33 pg (25-35) Mean Corpuscular Hemoglobin Concent 33 g/dL (31-37) Red Cell Distribution Width 18.1 % (11.5-14.5) Platelet Count 151 x10^3/uL (140-400) Neutrophils (%) (Auto) 64 % (31-73) Lymphocytes (%) (Auto) 27 % (24-48) Monocytes (%) (Auto) 7 % (0-9) Eosinophils (%) (Auto) 1 % (0-3) Basophils (%) (Auto) 1 % (0-3) Neutrophils # (Auto) 2.7 x10^3uL (1.8-7.7) Lymphocytes # (Auto) 1.1 x10^3/uL (1.0-4.8) Monocytes # (Auto) 0.3 x10^3/uL (0.0-1.1) Eosinophils # (Auto) 0.1 x10^3/uL (0.0-0.7) Basophils # (Auto) 0.0 x10^3/uL (0.0-0.2) Prothrombin Time 19.0 SEC (11.7-14.0) Prothromb Time International Ratio 1.7 (0.8-1.1) Sodium Level 141 mmol/L (136-145) Potassium Level 3.3 mmol/L (3.5-5.1) Chloride Level 102 mmol/L (98-107) Carbon Dioxide Level 33 mmol/L (21-32) Anion Gap 6 (6-14) Blood Urea Nitrogen 36 mg/dL (7-20) Creatinine 1.2 mg/dL (0.6-1.0) Estimated GFR (Cockcroft-Gault) 43.6 Glucose Level 76 mg/dL (70-99) Calcium Level 8.2 mg/dL (8.5-10.1) Magnesium Level 2.0 mg/dL (1.8-2.4) Test 10/22/17 11:14 Glucose (Fingerstick) 67 mg/dL (70-99) Review of Systems Review of Systems Admits to fatigue and sore right leg Denies shortness of air Assessment and Plan Assessmemt and Plan Problems Medical Problems: (1) Cellulitis Status: Acute ASSESSMENT: Weakness A-Fib Anxiety Cancer CHF Depression GERD Hypothyroid Lung Disease TIA PLAN: Pt approaching baseline Continue Abx Replace electrolytes Continue diuresis PT/OT Possible discharge tomorrow if stable Problems: Comment Review of Relevant I have reviewed the following items leila (where applicable) has been applied. Labs Laboratory Tests Test 10/20/17 16:56 10/20/17 20:44 10/20/17 21:26 10/21/17 04:20 Glucose (Fingerstick) 173 mg/dL (70-99) 54 mg/dL (70-99) 209 mg/dL (70-99) Sodium Level 137 mmol/L (136-145) Potassium Level 2.2 mmol/L (3.5-5.1) Chloride Level 97 mmol/L (98-107) Carbon Dioxide Level 33 mmol/L (21-32) Anion Gap 7 (6-14) Blood Urea Nitrogen 43 mg/dL (7-20) Creatinine 1.4 mg/dL (0.6-1.0) Estimated GFR (Cockcroft-Gault) 36.5 BUN/Creatinine Ratio 31 (6-20) Glucose Level 75 mg/dL (70-99) Hemoglobin A1c 5.1 % (4.8-5.6) Calcium Level 8.1 mg/dL (8.5-10.1) Total Bilirubin 0.4 mg/dL (0.2-1.0) Aspartate Amino Transf (AST/SGOT) 24 U/L (15-37) Alanine Aminotransferase (ALT/SGPT) 30 U/L (14-59) Alkaline Phosphatase 55 U/L (46-116) Total Protein 5.3 g/dL (6.4-8.2) Albumin 2.4 g/dL (3.4-5.0) Albumin/Globulin Ratio 0.8 (1.0-1.7) Test 10/21/17 07:55 10/21/17 10:49 10/21/17 15:06 10/21/17 15:33 Glucose (Fingerstick) 78 mg/dL (70-99) 114 mg/dL (70-99) 52 mg/dL (70-99) 117 mg/dL (70-99) Test 10/21/17 16:26 10/21/17 17:20 10/21/17 21:04 10/21/17 21:40 Glucose (Fingerstick) 94 mg/dL (70-99) 86 mg/dL (70-99) Potassium Level 3.4 mmol/L (3.5-5.1) Vancomycin Level Trough 11.7 mcg/mL (10.0-20.0) Vancomycin Last Dose Date 10/20/17 Vancomycin Last Dose Time 2200 Test 10/22/17 06:10 10/22/17 07:37 10/22/17 11:14 White Blood Count 4.2 x10^3/uL (4.0-11.0) Red Blood Count 3.26 x10^6/uL (3.50-5.40) Hemoglobin 10.7 g/dL (12.0-15.5) Hematocrit 32.9 % (36.0-47.0) Mean Corpuscular Volume 101 fL (79-100) Mean Corpuscular Hemoglobin 33 pg (25-35) Mean Corpuscular Hemoglobin Concent 33 g/dL (31-37) Red Cell Distribution Width 18.1 % (11.5-14.5) Platelet Count 151 x10^3/uL (140-400) Neutrophils (%) (Auto) 64 % (31-73) Lymphocytes (%) (Auto) 27 % (24-48) Monocytes (%) (Auto) 7 % (0-9) Eosinophils (%) (Auto) 1 % (0-3) Basophils (%) (Auto) 1 % (0-3) Neutrophils # (Auto) 2.7 x10^3uL (1.8-7.7) Lymphocytes # (Auto) 1.1 x10^3/uL (1.0-4.8) Monocytes # (Auto) 0.3 x10^3/uL (0.0-1.1) Eosinophils # (Auto) 0.1 x10^3/uL (0.0-0.7) Basophils # (Auto) 0.0 x10^3/uL (0.0-0.2) Prothrombin Time 19.0 SEC (11.7-14.0) Prothromb Time International Ratio 1.7 (0.8-1.1) Sodium Level 141 mmol/L (136-145) Potassium Level 3.3 mmol/L (3.5-5.1) Chloride Level 102 mmol/L (98-107) Carbon Dioxide Level 33 mmol/L (21-32) Anion Gap 6 (6-14) Blood Urea Nitrogen 36 mg/dL (7-20) Creatinine 1.2 mg/dL (0.6-1.0) Estimated GFR (Cockcroft-Gault) 43.6 Glucose Level 76 mg/dL (70-99) Calcium Level 8.2 mg/dL (8.5-10.1) Magnesium Level 2.0 mg/dL (1.8-2.4) Glucose (Fingerstick) 73 mg/dL (70-99) 67 mg/dL (70-99) Laboratory Tests Test 10/21/17 15:06 10/21/17 15:33 10/21/17 16:26 10/21/17 17:20 Glucose (Fingerstick) 52 mg/dL (70-99) 117 mg/dL (70-99) 94 mg/dL (70-99) Potassium Level 3.4 mmol/L (3.5-5.1) Test 10/21/17 21:04 10/21/17 21:40 10/22/17 06:10 10/22/17 07:37 Glucose (Fingerstick) 86 mg/dL (70-99) 73 mg/dL (70-99) Vancomycin Level Trough 11.7 mcg/mL (10.0-20.0) Vancomycin Last Dose Date 10/20/17 Vancomycin Last Dose Time 2200 White Blood Count 4.2 x10^3/uL (4.0-11.0) Red Blood Count 3.26 x10^6/uL (3.50-5.40) Hemoglobin 10.7 g/dL (12.0-15.5) Hematocrit 32.9 % (36.0-47.0) Mean Corpuscular Volume 101 fL (79-100) Mean Corpuscular Hemoglobin 33 pg (25-35) Mean Corpuscular Hemoglobin Concent 33 g/dL (31-37) Red Cell Distribution Width 18.1 % (11.5-14.5) Platelet Count 151 x10^3/uL (140-400) Neutrophils (%) (Auto) 64 % (31-73) Lymphocytes (%) (Auto) 27 % (24-48) Monocytes (%) (Auto) 7 % (0-9) Eosinophils (%) (Auto) 1 % (0-3) Basophils (%) (Auto) 1 % (0-3) Neutrophils # (Auto) 2.7 x10^3uL (1.8-7.7) Lymphocytes # (Auto) 1.1 x10^3/uL (1.0-4.8) Monocytes # (Auto) 0.3 x10^3/uL (0.0-1.1) Eosinophils # (Auto) 0.1 x10^3/uL (0.0-0.7) Basophils # (Auto) 0.0 x10^3/uL (0.0-0.2) Prothrombin Time 19.0 SEC (11.7-14.0) Prothromb Time International Ratio 1.7 (0.8-1.1) Sodium Level 141 mmol/L (136-145) Potassium Level 3.3 mmol/L (3.5-5.1) Chloride Level 102 mmol/L (98-107) Carbon Dioxide Level 33 mmol/L (21-32) Anion Gap 6 (6-14) Blood Urea Nitrogen 36 mg/dL (7-20) Creatinine 1.2 mg/dL (0.6-1.0) Estimated GFR (Cockcroft-Gault) 43.6 Glucose Level 76 mg/dL (70-99) Calcium Level 8.2 mg/dL (8.5-10.1) Magnesium Level 2.0 mg/dL (1.8-2.4) Test 10/22/17 11:14 Glucose (Fingerstick) 67 mg/dL (70-99) Microbiology 10/19/17 Blood Culture - Preliminary, Resulted NO GROWTH AFTER 2 DAYS Medications Current Medications Vancomycin HCl (Vanco Per Pharmacy) 1 each PRN DAILY PRN MC SEE COMMENTS Last administered on 10/22/17t 10:14; Start 10/19/17 at 22:45 Ondansetron HCl (Zofran) 4 mg PRN Q8HRS PRN IV NAUSEA/VOMITING; Start at 22:45; Stop 10/20/17 at 22:44; Status DC Acetaminophen (Tylenol) 650 mg PRN Q4HRS PRN PO FEVER Last administered on t 17:25; Start 10/19/17 at 22:45; Stop 10/20/17 at 22:44; Status DC Vancomycin HCl 1.25 gm/Dextrose 250 ml @ 166.667 mls/hr 1X ONCE IV Last administered on 10/19/17 23:36; Start 10/19/17 at 23:00; Stop 10/20/17 at 00 :29; Status DC Trazodone HCl (Desyrel) 25 mg QHS PO Last administered on 10/20/17 20:39; Start 10/20/17 at 01:00; Stop 10/21/17 at 08:07; Status DC Alprazolam (Xanax) 0.25 mg PRN Q8HRS PRN PO ANXIETY / AGITATION Last administered on 10/21/17 03:54; Start 10/20/17 at 00:30; Stop 10/21/17 at 08 :04; Status DC Vancomycin HCl 750 mg/Dextrose 250 ml @ 250 mls/hr Q24H IV Last administered on 10/21/17 22:27; Start 10/20/17 at 22:00 Vancomycin HCl 1 each 1X ONCE MC Last administered on 10/21/17 21:30; Start 10/21/17 at 21:30; Stop 10/21/17 at 21:31; Status DC Potassium Chloride (Klor-Con) 40 meq 1X ONCE PO Last administered on 06:31; Start 10/20/17 at 06:30; Stop 10/20/17 at 06:31; Status DC Potassium Chloride (Klor-Con) 40 meq 1X ONCE PO Last administered on 08:21; Start 10/20/17 at 09:00; Stop 10/20/17 at 09:01; Status DC Potassium Chloride 50 ml @ 50 mls/hr Q1H IV ; Start 10/20/17 at 09:30; Stop at 16:10; Status DC Acetaminophen (Tylenol) 500 mg PRN Q6HRS PRN PO MILD PAIN / TEMP; Start at 12:15 Allopurinol (Zyloprim) 100 mg DAILY PO Last administered on 10/22/17 09:15; Start 10/20/17 at 13:00 Alprazolam (Xanax) 0.25 mg PRN TID PRN PO ANXIETY / AGITATION Last administered on 10/22/17 09:16; Start 10/20/17 at 12:15 Furosemide (Lasix) 80 mg BID92 PO ; Start 10/20/17 at 14:00; Stop 10/20/17 at 15:28; Status DC Guaifenesin (MUCINEX ER with DM) 1 tab PRN Q12HRS PO ; Start 10/20/17 at 12:15 Levothyroxine Sodium (Synthroid) 100 mcg DAILY07 PO Last administered on 06:40; Start 10/21/17 at 09:00 Propafenone HCl (Rythmol) 150 mg BID PO Last administered on 10/22/17 09:17; Start 10/20/17 at 13:00 Spironolactone (Aldactone) 25 mg DAILY PO ; Start 10/20/17 at 13:00 Tramadol HCl (Ultram) 50 mg PRN Q6HRS PRN PO PAIN Last administered on 09:16; Start 10/20/17 at 12:15 Trazodone HCl (Desyrel) 25 mg HS PO Last administered on 10/21/17 21:09; Start 10/20/17 at 21:00 Non-Formulary Medication 1,000 mg BID PO ; Start 10/20/17 at 21:00; Stop 10/20 at 21:00; Status DC Calcium/Vitamin D (Oscal D 500mg/ 200uts) 1 tab BIDWMEALS PO Last administered on 10/22/17 09:12; Start 10/20/17 at 17:00 Cetirizine HCl (ZyrTEC) 10 mg DAILY PO Last administered on 10/22/17 09:15; Start 10/20/17 at 13:00 Fish Oil (Fish Oil) 1,000 mg DAILY PO Last administered on 10/22/17 09:14; Start 10/20/17 at 13:00 Pantoprazole Sodium (Protonix) 40 mg DAILYAC PO Last administered on 09:12; Start 10/20/17 at 13:00 Paroxetine HCl (Paxil) 20 mg DAILY PO Last administered on 10/22/17 09:16; Start 10/20/17 at 13:00 Artificial Tears (Artificial Tears) 1 drop DAILY OU ; Start 10/20/17 at 13:00; Stop 10/20/17 at 13:00; Status DC Hydroxychloroquine Sulfate (Plaquenil) 200 mg DAILY08 PO Last administered on 10/22/17 09:15; Start 10/20/17 at 13:00 Ferrous Sulfate (Feosol) 325 mg DAILYWBKFT PO Last administered on 10/22/17 09:15; Start 10/20/17 at 13:00 Non-Formulary Medication 1 tab BID .ROUTE ; Start 10/20/17 at 21:00; Stop at 21:00; Status DC Artificial Tears (Artificial Tears) 1 drop DAILY OU Last administered on 09:29; Start 10/21/17 at 09:00 Calcitriol (Rocaltrol) 0.25 mcg DAILY PO Last administered on 10/22/17 09:15 ; Start 10/20/17 at 14:00 Warfarin Sodium (Coumadin) 2.5 mg 1X ONCE PO Last administered on 10/20/17 16:32; Start 10/20/17 at 14:45; Stop 10/20/17 at 14:56; Status DC Warfarin Sodium (Coumadin Per Physician) 1 each PRN DAILY PRN MC SEE COMMENTS Last administered on 10/22/17 10:37; Start 10/20/17 at 14:45 Furosemide (Lasix) 40 mg DAILY PO Last administered on 10/21/17 08:28; Start 10/21/17 at 09:00 Potassium Chloride (Klor-Con) 40 meq 1X ONCE PO Last administered on 08:28; Start 10/21/17 at 07:30; Stop 10/21/17 at 07:31; Status DC Potassium Chloride (Klor-Con) 40 meq 1X ONCE PO Last administered on 13:11; Start 10/21/17 at 12:00; Stop 10/21/17 at 12:01; Status DC Lactobacillus Rhamnosus (Culturelle) 1 cap BID PO Last administered on 09:17; Start 10/21/17 at 21:00 Potassium Chloride (Klor-Con) 40 meq 1X ONCE PO Last administered on 08:34; Start 10/21/17 at 08:15; Stop 10/21/17 at 08:20; Status DC Potassium Chloride (Klor-Con) 20 meq DAILYWBKFT PO Last administered on 09:14; Start 10/21/17 at 11:30 Warfarin Sodium (Coumadin Per Physician) 1 each PRN DAILY PRN MC SEE COMMENTS; Start 10/21/17 at 14:45; Stop 10/21/17 at 14:56; Status DC Potassium Chloride (Klor-Con) 40 meq 1X ONCE PO Last administered on 09:13; Start 10/22/17 at 08:30; Stop 10/22/17 at 08:31; Status DC Active Scripts Active Potassium Chloride 20 Meq Tablet.er 20 Meq PO DAY 90 Days Aldactone (Spironolactone) 25 Mg Tablet 1 Tab PO DAILY Reported Calcitriol 0.25 Mcg Capsule Metolazone 5 Mg Tablet Furosemide 80 Mg Tablet 1 Tab PO BID Methotrexate (Methotrexate Sodium) 2.5 Mg Tablet 7 Tab PO SATURDAY [hydroxyl-chloroquine] 200 Mg PO DAILY08 Calcium + Vitamin D Tablet (Calcium Carbonate/Vitamin D3) 1 Each Tablet 1 Each PO BID Claritin (Loratadine) 10 Mg Tablet 1 Tab PO DAILY PRN Coumadin (Warfarin Sodium) 6 Mg Tablet 6 Mg PO ,,,,DUNCAN Acetaminophen 500 Mg Tablet 1 Tab PO PRN Q6HRS PRN Mucinex Dm Er 600-30 Mg Tablet (Guaifenesin/Dextromethorphan) 1 Each Tab.er.12h 1 Tab PO PRN Q12HRS Trazodone Hcl 50 Mg Tablet 25 Mg PO HS Propafenone Hcl 150 Mg Tablet 150 Mg PO BID Systane 0.3-0.4% Eye Drops (Propylene Glycol/Peg 400/Pf) 1 Each Droperette 1 Each OP DAILY Xanax (Alprazolam) 0.25 Mg Tablet 1 Tab PO PRN TID PRN Biotin 1 Mg Capsule 1,000 Mg PO BID [lutein] 1 Tab BID [Iron ] 1 Tab DAILY Omeprazole 40 Mg Capsule.dr 40 Mg PO DAILY Tramadol Hcl 50 Mg Tablet 50 Mg PO PRN Q6HRS PRN Fish Oil 1,000 Mg Softgel ([place]-3 Fatty Acids/Fish Oil) 1 Each Capsule 1 Each PO DAILY Allopurinol 100 Mg Tablet 100 Mg PO DAILY Paxil (Paroxetine Hcl) 40 Mg Tablet 20 Mg PO DAILY Levothyroxine Sodium 100 Mcg Tablet 100 Mcg PO DAILY Vitals/I & O Vital Sign - Last 24 Hours 10/21/17 10/21/17 10/21/17 10/21/17 15:00 19:55 20:00 21:10 Temp 97.6 98.1 97.6 98.1 Pulse 63 60 64 Resp 19 18 B/P (MAP) 107/62 (77) 100/55 (70) 90/47 Pulse Ox 99 98 O2 Delivery Room Air Room Air Room Air 10/21/17 10/21/17 10/22/17 10/22/17 21:15 22:40 03:35 07:00 Temp 97.6 98.0 98.0 97.6 98.0 98.0 Pulse 61 60 89 Resp 20 20 18 20 B/P (MAP) 94/59 (71) 100/53 (69) 123/71 (88) Pulse Ox 98 99 100 O2 Delivery Room Air Room Air Room Air 10/22/17 10/22/17 10/22/17 10/22/17 09:16 09:17 10:16 11:00 Temp 98.1 98.1 Pulse 60 63 Resp 18 18 20 B/P (MAP) 94/52 108/62 (77) Pulse Ox 99 99 100 O2 Delivery Room Air Room Air Room Air Intake and Output 10/21/17 10/21/17 10/22/17 14:59 22:59 06:59 Intake Total 1500 ml 300 ml Output Total 1050 ml 600 ml Balance 450 ml -300 ml BRITTA MARTINEZ III DO Oct 22, 2017 13:24
[2017-10-22 15:00] VITALS: BP 126/76
[2017-10-22] MEDS ORDERED: WARFARIN 5 MG TABLET. PO ONE (17:45)
[2017-10-22 19:00] VITALS: BP 110/60
[2017-10-22] MEDS: traZODone 50 MG TABLET. PO SCH (20:19)
[2017-10-22 22:50] VITALS: BP 97/54
[2017-10-23] MEDS: VANCOMYCIN 750 MG in IV DEXTROSE 5% 250 ML IV SCH (02:07)
[2017-10-23 03:20] VITALS: BP 99/55
[2017-10-23 06:07] LABS: BASO % 1 % (0-3); EOS % 2 % (0-3); HEMOGLOBIN 10.6 g/dL (12.0-15.5); LYMPH # 1.2 x10^3/uL (1.0-4.8); LYMPH % 29 % (24-48); MEAN CORPUSCULAR HEMOGLOBIN 33 pg (25-35); MEAN CORPUSCULAR HGB CONC 33 g/dL (31-37); MEAN CORPUSCULAR VOLUME 100 fL (79-100); MONO % 9 % (0-9); NEUT % 59 % (31-73); PLATELET COUNT 142 x10^3/uL (140-400); RED BLOOD COUNT 3.19 x10^6/uL (3.50-5.40); RED CELL DISTRIBUTION WIDTH 18.2 % (11.5-14.5)
[2017-10-23] MEDS: PANTOPRAZOLE 40 MG TABLET.DR. PO SCH (06:09)
[2017-10-23] MEDS: LEVOTHYROXINE 100 MCG TABLET PO SCH (06:09)
[2017-10-23 06:16] LABS: INR 1.4 (0.8-1.1)
[2017-10-23 06:41] LABS: CALCIUM 8.5 mg/dL (8.5-10.1); CREATININE 1.2 mg/dL (0.6-1.0); GFR 43.6; MAGNESIUM 2.1 mg/dL (1.8-2.4); POTASSIUM 3.9 mmol/L (3.5-5.1)
[2017-10-23 07:45] VITALS: BP 111/58
[2017-10-23] MEDS: OMEGA-3 FATTY ACIDS/FISH OIL 1,000 MG CAPSULE. PO SCH (08:17)
[2017-10-23] MEDS: ALLOPURINOL 100 MG TABLET. PO SCH (08:17)
[2017-10-23] MEDS: PARoxetine 20 MG TABLET PO SCH (08:18)
[2017-10-23] MEDS: CALCIUM CARB/VIT D3 500/200 TABLET. PO SCH (08:18)
[2017-10-23] MEDS: ALPRAZolam 0.25 MG TABLET PO PRN ×2 (08:18→14:51)
[2017-10-23] MEDS: FERROUS SULFATE 325 MG TABLET. PO SCH (08:18)
[2017-10-23] MEDS: HYDROXYCHLOROQUINE 200 MG TABLET PO SCH (08:19)
[2017-10-23] MEDS: FUROSEMIDE 40 MG TABLET. PO SCH (08:19)
[2017-10-23] MEDS: POTASSIUM CHLORIDE 20 MEQ TABLET.ER. PO SCH (08:19)
[2017-10-23] MEDS: PROPAFENONE 150 MG TABLET. PO SCH (08:19)
[2017-10-23] MEDS: traMADol 50 MG TABLET PO PRN ×2 (08:19→14:51)
[2017-10-23] MEDS: CALCITRIOL 0.25 MCG CAPSULE. PO SCH (08:20)
[2017-10-23] MEDS: SPIRONOLACTONE 25 MG TABLET PO SCH (08:20)
[2017-10-23] MEDS: LACTOBACILLUS RHAMNOSUS GG 1 CAPSULE. PO SCH (08:20)
[2017-10-23] MEDS: CETIRIZINE HCL 10 MG TABLET. PO SCH (08:21)
[2017-10-23] MEDS: POLYVINYL ALCOHOL 1.4% OPHTH SOLUTION 15ML BOTTLE. OU SCH (08:21)
--- NOTE | 2017-10-23 08:50 | PDOC ---
PROGRESS NOTES Subjective Subjective Patient doing well this AM. Sitting up in bed eating. Patient reports that today she has a good appetite and feels a little stronger. Still c/o some weakness. Denies any shortness of breath or cardiac complaints. R leg continues to decrease in pain and size with IV antibiotics. Patient eager to go home. Currently lives alone and feels that she would be able to take care of herself, but reports that her sister would be living with her for a while when she went home. No additional complaints at this time. Objective Objective Vital Signs Date Time Temp Pulse Resp B/P (MAP) Pulse Ox O2 Delivery O2 Flow Rate FiO2 10/23/17 08:19 87 10/23/17 07:45 97.8 18 111/58 (75) 100 Room Air 97.8 Intake and Output 10/23/17 07:00 Intake Total 3310 ml Output Total 1102 ml Balance 2208 ml Intake Oral 3060 ml IV Total 250 ml Output Urine Total 1100 ml Stool Total 2 ml # Bowel Movements 1 Physical Exam COMMENT Alert, Awake, Oriented No Acute Distress Lungs CTAB No significant changes in cardiac exam Decreasing R leg erythema and decreasing TTP, wound on R toe. Assessment Assessment Problems Medical Problems: (1) Cellulitis Status: Acute Plan Plan of Care Patient receiving IV antibiotics for R leg cellulitis. Continues to improve. Continues to be followed by the wound care clinic for which has been following her for some time. Neck Pain- C-spine imaging with multilevel degenerative changes and canal stenosis. PT/OT. From a cardiac standpoint her pacemaker is working normally and the elevation of the troponin is chronic. Continue cardiac monitoring, diuresis, and replace electrolytes as needed. K stable today. Will handle Coumadin and obtain daily INRs until d/c. Will continue to follow patient throughout her hospitalization. Potential d/c today with f/u labs in 1 week. Patient will receive home health and nursing at home. Comment Review of Relevant I have reviewed the following items leila (where applicable) has been applied. Labs Laboratory Tests Test 10/21/17 10:49 10/21/17 15:06 10/21/17 15:33 10/21/17 16:26 Glucose (Fingerstick) 114 mg/dL (70-99) 52 mg/dL (70-99) 117 mg/dL (70-99) 94 mg/dL (70-99) Test 10/21/17 17:20 11/27/17 21:04 10/21/17 21:40 10/22/17 06:10 Potassium Level 3.4 mmol/L (3.5-5.1) 3.3 mmol/L (3.5-5.1) Glucose (Fingerstick) 86 mg/dL (70-99) Vancomycin Level Trough 11.7 mcg/mL (10.0-20.0) Vancomycin Last Dose Date 10/20/17 Vancomycin Last Dose Time 2200 White Blood Count 4.2 x10^3/uL (4.0-11.0) Red Blood Count 3.26 x10^6/uL (3.50-5.40) Hemoglobin 10.7 g/dL (12.0-15.5) Hematocrit 32.9 % (36.0-47.0) Mean Corpuscular Volume 101 fL (79-100) Mean Corpuscular Hemoglobin 33 pg (25-35) Mean Corpuscular Hemoglobin Concent 33 g/dL (31-37) Red Cell Distribution Width 18.1 % (11.5-14.5) Platelet Count 151 x10^3/uL (140-400) Neutrophils (%) (Auto) 64 % (31-73) Lymphocytes (%) (Auto) 27 % (24-48) Monocytes (%) (Auto) 7 % (0-9) Eosinophils (%) (Auto) 1 % (0-3) Basophils (%) (Auto) 1 % (0-3) Neutrophils # (Auto) 2.7 x10^3uL (1.8-7.7) Lymphocytes # (Auto) 1.1 x10^3/uL (1.0-4.8) Monocytes # (Auto) 0.3 x10^3/uL (0.0-1.1) Eosinophils # (Auto) 0.1 x10^3/uL (0.0-0.7) Basophils # (Auto) 0.0 x10^3/uL (0.0-0.2) Prothrombin Time 19.0 SEC (11.7-14.0) Prothromb Time International Ratio 1.7 (0.8-1.1) Sodium Level 141 mmol/L (136-145) Chloride Level 102 mmol/L (98-107) Carbon Dioxide Level 33 mmol/L (21-32) Anion Gap 6 (6-14) Blood Urea Nitrogen 36 mg/dL (7-20) Creatinine 1.2 mg/dL (0.6-1.0) Estimated GFR (Cockcroft-Gault) 43.6 Glucose Level 76 mg/dL (70-99) Calcium Level 8.2 mg/dL (8.5-10.1) Magnesium Level 2.0 mg/dL (1.8-2.4) Test 10/22/17 07:37 10/22/17 11:14 10/22/17 16:54 10/22/17 17:32 Glucose (Fingerstick) 73 mg/dL (70-99) 67 mg/dL (70-99) 56 mg/dL (70-99) 99 mg/dL (70-99) Test 10/22/17 20:27 10/23/17 05:25 Glucose (Fingerstick) 195 mg/dL (70-99) White Blood Count 4.0 x10^3/uL (4.0-11.0) Red Blood Count 3.19 x10^6/uL (3.50-5.40) Hemoglobin 10.6 g/dL (12.0-15.5) Hematocrit 32.0 % (36.0-47.0) Mean Corpuscular Volume 100 fL (79-100) Mean Corpuscular Hemoglobin 33 pg (25-35) Mean Corpuscular Hemoglobin Concent 33 g/dL (31-37) Red Cell Distribution Width 18.2 % (11.5-14.5) Platelet Count 142 x10^3/uL (140-400) Neutrophils (%) (Auto) 59 % (31-73) Lymphocytes (%) (Auto) 29 % (24-48) Monocytes (%) (Auto) 9 % (0-9) Eosinophils (%) (Auto) 2 % (0-3) Basophils (%) (Auto) 1 % (0-3) Neutrophils # (Auto) 2.4 x10^3uL (1.8-7.7) Lymphocytes # (Auto) 1.2 x10^3/uL (1.0-4.8) Monocytes # (Auto) 0.4 x10^3/uL (0.0-1.1) Eosinophils # (Auto) 0.1 x10^3/uL (0.0-0.7) Basophils # (Auto) 0.0 x10^3/uL (0.0-0.2) Prothrombin Time 16.0 SEC (11.7-14.0) Prothromb Time International Ratio 1.4 (0.8-1.1) Sodium Level 138 mmol/L (136-145) Potassium Level 3.9 mmol/L (3.5-5.1) Chloride Level 103 mmol/L (98-107) Carbon Dioxide Level 30 mmol/L (21-32) Anion Gap 5 (6-14) Blood Urea Nitrogen 31 mg/dL (7-20) Creatinine 1.2 mg/dL (0.6-1.0) Estimated GFR (Cockcroft-Gault) 43.6 Glucose Level 74 mg/dL (70-99) Calcium Level 8.5 mg/dL (8.5-10.1) Magnesium Level 2.1 mg/dL (1.8-2.4) Laboratory Tests Test 10/22/17 11:14 10/22/17 16:54 10/22/17 17:32 10/22/17 20:27 Glucose (Fingerstick) 67 mg/dL (70-99) 56 mg/dL (70-99) 99 mg/dL (70-99) 195 mg/dL (70-99) Test 10/23/17 05:25 White Blood Count 4.0 x10^3/uL (4.0-11.0) Red Blood Count 3.19 x10^6/uL (3.50-5.40) Hemoglobin 10.6 g/dL (12.0-15.5) Hematocrit 32.0 % (36.0-47.0) Mean Corpuscular Volume 100 fL (79-100) Mean Corpuscular Hemoglobin 33 pg (25-35) Mean Corpuscular Hemoglobin Concent 33 g/dL (31-37) Red Cell Distribution Width 18.2 % (11.5-14.5) Platelet Count 142 x10^3/uL (140-400) Neutrophils (%) (Auto) 59 % (31-73) Lymphocytes (%) (Auto) 29 % (24-48) Monocytes (%) (Auto) 9 % (0-9) Eosinophils (%) (Auto) 2 % (0-3) Basophils (%) (Auto) 1 % (0-3) Neutrophils # (Auto) 2.4 x10^3uL (1.8-7.7) Lymphocytes # (Auto) 1.2 x10^3/uL (1.0-4.8) Monocytes # (Auto) 0.4 x10^3/uL (0.0-1.1) Eosinophils # (Auto) 0.1 x10^3/uL (0.0-0.7) Basophils # (Auto) 0.0 x10^3/uL (0.0-0.2) Prothrombin Time 16.0 SEC (11.7-14.0) Prothromb Time International Ratio 1.4 (0.8-1.1) Sodium Level 138 mmol/L (136-145) Potassium Level 3.9 mmol/L (3.5-5.1) Chloride Level 103 mmol/L (98-107) Carbon Dioxide Level 30 mmol/L (21-32) Anion Gap 5 (6-14) Blood Urea Nitrogen 31 mg/dL (7-20) Creatinine 1.2 mg/dL (0.6-1.0) Estimated GFR (Cockcroft-Gault) 43.6 Glucose Level 74 mg/dL (70-99) Calcium Level 8.5 mg/dL (8.5-10.1) Magnesium Level 2.1 mg/dL (1.8-2.4) Microbiology 10/19/17 Blood Culture - Preliminary, Resulted NO GROWTH AFTER 3 DAYS Medications Current Medications Vancomycin HCl (Vanco Per Pharmacy) 1 each PRN DAILY PRN MC SEE COMMENTS Last administered on 10/22/17t 10:14; Start 10/19/17 at 22:45 Ondansetron HCl (Zofran) 4 mg PRN Q8HRS PRN IV NAUSEA/VOMITING; Start at 22:45; Stop 10/20/17 at 22:44; Status DC Acetaminophen (Tylenol) 650 mg PRN Q4HRS PRN PO FEVER Last administered on t 17:25; Start 10/19/17 at 22:45; Stop 10/20/17 at 22:44; Status DC Vancomycin HCl 1.25 gm/Dextrose 250 ml @ 166.667 mls/hr 1X ONCE IV Last administered on 10/19/17 23:36; Start 10/19/17 at 23:00; Stop 10/20/17 at 00 :29; Status DC Trazodone HCl (Desyrel) 25 mg QHS PO Last administered on 10/20/17 20:39; Start 10/20/17 at 01:00; Stop 10/21/17 at 08:07; Status DC Alprazolam (Xanax) 0.25 mg PRN Q8HRS PRN PO ANXIETY / AGITATION Last administered on 10/21/17 03:54; Start 10/20/17 at 00:30; Stop 10/21/17 at 08 :04; Status DC Vancomycin HCl 750 mg/Dextrose 250 ml @ 250 mls/hr Q24H IV Last administered on 10/23/17 02:07; Start 10/20/17 at 22:00 Vancomycin HCl 1 each 1X ONCE MC Last administered on 10/21/17 21:30; Start 10/21/17 at 21:30; Stop 10/21/17 at 21:31; Status DC Potassium Chloride (Klor-Con) 40 meq 1X ONCE PO Last administered on 06:31; Start 10/20/17 at 06:30; Stop 10/20/17 at 06:31; Status DC Potassium Chloride (Klor-Con) 40 meq 1X ONCE PO Last administered on 08:21; Start 10/20/17 at 09:00; Stop 10/20/17 at 09:01; Status DC Potassium Chloride 50 ml @ 50 mls/hr Q1H IV ; Start 10/20/17 at 09:30; Stop at 16:10; Status DC Acetaminophen (Tylenol) 500 mg PRN Q6HRS PRN PO MILD PAIN / TEMP; Start at 12:15 Allopurinol (Zyloprim) 100 mg DAILY PO Last administered on 10/23/17 08:17; Start 10/20/17 at 13:00 Alprazolam (Xanax) 0.25 mg PRN TID PRN PO ANXIETY / AGITATION Last administered on 10/23/17 08:18; Start 10/20/17 at 12:15 Furosemide (Lasix) 80 mg BID92 PO ; Start 10/20/17 at 14:00; Stop 10/20/17 at 15:28; Status DC Guaifenesin (MUCINEX ER with DM) 1 tab PRN Q12HRS PO ; Start 10/20/17 at 12:15 Levothyroxine Sodium (Synthroid) 100 mcg DAILY07 PO Last administered on 06:09; Start 10/21/17 at 09:00 Propafenone HCl (Rythmol) 150 mg BID PO Last administered on 10/23/17 08:19; Start 10/20/17 at 13:00 Spironolactone (Aldactone) 25 mg DAILY PO Last administered on 10/23/17 08:20 ; Start 10/20/17 at 13:00 Tramadol HCl (Ultram) 50 mg PRN Q6HRS PRN PO PAIN Last administered on 08:19; Start 10/20/17 at 12:15 Trazodone HCl (Desyrel) 25 mg HS PO Last administered on 10/22/17 20:19; Start 10/20/17 at 21:00 Non-Formulary Medication 1,000 mg BID PO ; Start 10/20/17 at 21:00; Stop 10/20 at 21:00; Status DC Calcium/Vitamin D (Oscal D 500mg/ 200uts) 1 tab BIDWMEALS PO Last administered on 10/23/17 08:18; Start 10/20/17 at 17:00 Cetirizine HCl (ZyrTEC) 10 mg DAILY PO Last administered on 10/22/17 09:15; Start 10/20/17 at 13:00 Fish Oil (Fish Oil) 1,000 mg DAILY PO Last administered on 10/23/17 08:17; Start 10/20/17 at 13:00 Pantoprazole Sodium (Protonix) 40 mg DAILYAC PO Last administered on 06:09; Start 10/20/17 at 13:00 Paroxetine HCl (Paxil) 20 mg DAILY PO Last administered on 10/23/17 08:18; Start 10/20/17 at 13:00 Artificial Tears (Artificial Tears) 1 drop DAILY OU ; Start 10/20/17 at 13:00; Stop 10/20/17 at 13:00; Status DC Hydroxychloroquine Sulfate (Plaquenil) 200 mg DAILY08 PO Last administered on 10/23/17 08:19; Start 10/20/17 at 13:00 Ferrous Sulfate (Feosol) 325 mg DAILYWBKFT PO Last administered on 10/23/17 08:18; Start 10/20/17 at 13:00 Non-Formulary Medication 1 tab BID .ROUTE ; Start 10/20/17 at 21:00; Stop at 21:00; Status DC Artificial Tears (Artificial Tears) 1 drop DAILY OU Last administered on 08:21; Start 10/21/17 at 09:00 Calcitriol (Rocaltrol) 0.25 mcg DAILY PO Last administered on 10/23/17 08:20 ; Start 10/20/17 at 14:00 Warfarin Sodium (Coumadin) 2.5 mg 1X ONCE PO Last administered on 10/20/17 16:32; Start 10/20/17 at 14:45; Stop 10/20/17 at 14:56; Status DC Warfarin Sodium (Coumadin Per Physician) 1 each PRN DAILY PRN MC SEE COMMENTS Last administered on 10/22/17 10:37; Start 10/20/17 at 14:45 Furosemide (Lasix) 40 mg DAILY PO Last administered on 10/23/17 08:19; Start 10/21/17 at 09:00 Potassium Chloride (Klor-Con) 40 meq 1X ONCE PO Last administered on 08:28; Start 10/21/17 at 07:30; Stop 10/21/17 at 07:31; Status DC Potassium Chloride (Klor-Con) 40 meq 1X ONCE PO Last administered on 13:11; Start 10/21/17 at 12:00; Stop 10/21/17 at 12:01; Status DC Lactobacillus Rhamnosus (Culturelle) 1 cap BID PO Last administered on 08:20; Start 10/21/17 at 21:00 Potassium Chloride (Klor-Con) 40 meq 1X ONCE PO Last administered on 08:34; Start 10/21/17 at 08:15; Stop 10/21/17 at 08:20; Status DC Potassium Chloride (Klor-Con) 20 meq DAILYWBKFT PO Last administered on 08:19; Start 10/21/17 at 11:30 Warfarin Sodium (Coumadin Per Physician) 1 each PRN DAILY PRN MC SEE COMMENTS; Start 10/21/17 at 14:45; Stop 10/21/17 at 14:56; Status DC Potassium Chloride (Klor-Con) 40 meq 1X ONCE PO Last administered on 09:13; Start 10/22/17 at 08:30; Stop 10/22/17 at 08:31; Status DC Warfarin Sodium (Coumadin) 5 mg 1X ONCE PO Last administered on 10/22/17 18: 15; Start 10/22/17 at 17:45; Stop 10/22/17 at 17:46; Status DC Active Scripts Active Potassium Chloride 20 Meq Tablet.er 20 Meq PO 5XDAY 90 Days Aldactone (Spironolactone) 25 Mg Tablet 1 Tab PO DAILY Reported Calcitriol 0.25 Mcg Capsule Metolazone 5 Mg Tablet Furosemide 80 Mg Tablet 1 Tab PO BID Methotrexate (Methotrexate Sodium) 2.5 Mg Tablet 7 Tab PO SATURDAY [hydroxyl-chloroquine] 200 Mg PO DAILY08 Calcium + Vitamin D Tablet (Calcium Carbonate/Vitamin D3) 1 Each Tablet 1 Each PO BID Claritin (Loratadine) 10 Mg Tablet 1 Tab PO DAILY PRN Coumadin (Warfarin Sodium) 6 Mg Tablet 6 Mg PO ,,,, Acetaminophen 500 Mg Tablet 1 Tab PO PRN Q6HRS PRN Mucinex Dm Er 600-30 Mg Tablet (Guaifenesin/Dextromethorphan) 1 Each Tab.er.12h 1 Tab PO PRN Q12HRS Trazodone Hcl 50 Mg Tablet 25 Mg PO HS Propafenone Hcl 150 Mg Tablet 150 Mg PO BID Systane 0.3-0.4% Eye Drops (Propylene Glycol/Peg 400/Pf) 1 Each Droperette 1 Each OP DAILY Xanax (Alprazolam) 0.25 Mg Tablet 1 Tab PO PRN TID PRN Biotin 1 Mg Capsule 1,000 Mg PO BID [lutein] 1 Tab BID [Iron ] 1 Tab DAILY Omeprazole 40 Mg Capsule.dr 40 Mg PO DAILY Tramadol Hcl 50 Mg Tablet 50 Mg PO PRN Q6HRS PRN Fish Oil 1,000 Mg Softgel (Jet-3 Fatty Acids/Fish Oil) 1 Each Capsule 1 Each PO DAILY Allopurinol 100 Mg Tablet 100 Mg PO DAILY Paxil (Paroxetine Hcl) 40 Mg Tablet 20 Mg PO DAILY Levothyroxine Sodium 100 Mcg Tablet 100 Mcg PO DAILY Vitals/I & O Vital Sign - Last 24 Hours 10/22/17 10/22/17 10/22/17 10/22/17 09:16 09:17 11:00 15:00 Temp 98.1 98.1 98.1 98.1 Pulse 60 63 82 Resp 18 20 20 B/P (MAP) 94/52 108/62 (77) 126/76 (93) Pulse Ox 99 100 100 O2 Delivery Room Air Room Air Room Air 10/22/17 10/22/17 10/22/17 10/22/17 18:20 19:00 19:20 20:00 Temp 98.2 98.2 Pulse 65 Resp 19 20 B/P (MAP) 110/60 (77) Pulse Ox 100 98 98 O2 Delivery Room Air Room Air Room Air Room Air 10/22/17 10/22/17 10/23/17 10/23/17 20:19 22:50 03:20 07:45 Temp 97.9 98.1 97.8 97.9 98.1 97.8 Pulse 65 60 60 68 Resp 18 18 18 B/P (MAP) 110/60 97/54 (68) 99/55 (70) 111/58 (75) Pulse Ox 99 98 100 O2 Delivery Room Air Room Air Room Air 10/23/17 08:19 Pulse 87 Intake and Output 10/22/17 10/22/17 10/23/17 15:00 23:00 07:00 Intake Total 1400 ml 1300 ml 610 ml Output Total 452 ml 650 ml Balance 948 ml 650 ml 610 ml CJ DIAL MD Oct 23, 2017 08:50
[2017-10-23] MEDS: VANCOMYCIN PER PHARMACY MC PRN (09:01)
[2017-10-23 10:45] VITALS: BP 99/53
--- NOTE | 2017-10-23 11:22 | PDOC ---
Renal-Progress Notes Subjective Notes Notes NONE History of Present Illness Hx of present illness STABLE Vitals Vitals Vital Signs Date Time Temp Pulse Resp B/P (MAP) Pulse Ox O2 Delivery O2 Flow Rate FiO2 10/23/17 10:45 98.2 61 18 99/53 (68) 99 Room Air 98.2 Weight Weight [ ] I.O. Intake and Output Intake and Output 10/23/17 06:59 Intake Total 3310 ml Output Total 1102 ml Balance 2208 ml Intake Oral 3060 ml IV Total 250 ml Output Urine Total 1100 ml Stool Total 2 ml # Bowel Movements 1 Labs Labs Laboratory Tests Test 10/22/17 16:54 10/22/17 17:32 10/22/17 20:27 10/23/17 05:25 Glucose (Fingerstick) 56 mg/dL (70-99) 99 mg/dL (70-99) 195 mg/dL (70-99) White Blood Count 4.0 x10^3/uL (4.0-11.0) Red Blood Count 3.19 x10^6/uL (3.50-5.40) Hemoglobin 10.6 g/dL (12.0-15.5) Hematocrit 32.0 % (36.0-47.0) Mean Corpuscular Volume 100 fL (79-100) Mean Corpuscular Hemoglobin 33 pg (25-35) Mean Corpuscular Hemoglobin Concent 33 g/dL (31-37) Red Cell Distribution Width 18.2 % (11.5-14.5) Platelet Count 142 x10^3/uL (140-400) Neutrophils (%) (Auto) 59 % (31-73) Lymphocytes (%) (Auto) 29 % (24-48) Monocytes (%) (Auto) 9 % (0-9) Eosinophils (%) (Auto) 2 % (0-3) Basophils (%) (Auto) 1 % (0-3) Neutrophils # (Auto) 2.4 x10^3uL (1.8-7.7) Lymphocytes # (Auto) 1.2 x10^3/uL (1.0-4.8) Monocytes # (Auto) 0.4 x10^3/uL (0.0-1.1) Eosinophils # (Auto) 0.1 x10^3/uL (0.0-0.7) Basophils # (Auto) 0.0 x10^3/uL (0.0-0.2) Prothrombin Time 16.0 SEC (11.7-14.0) Prothromb Time International Ratio 1.4 (0.8-1.1) Sodium Level 138 mmol/L (136-145) Potassium Level 3.9 mmol/L (3.5-5.1) Chloride Level 103 mmol/L (98-107) Carbon Dioxide Level 30 mmol/L (21-32) Anion Gap 5 (6-14) Blood Urea Nitrogen 31 mg/dL (7-20) Creatinine 1.2 mg/dL (0.6-1.0) Estimated GFR (Cockcroft-Gault) 43.6 Glucose Level 74 mg/dL (70-99) Calcium Level 8.5 mg/dL (8.5-10.1) Magnesium Level 2.1 mg/dL (1.8-2.4) Test 10/23/17 07:54 Glucose (Fingerstick) 73 mg/dL (70-99) Micro Micro Microbiology 10/19/17 Blood Culture - Preliminary, Resulted NO GROWTH AFTER 3 DAYS Review of Systems Constitutional: yes: weakness, alert, oriented Ears/Nose/Throat: Yes: no symptom reported Eyes: Yes: no symptom reported Pulmonary: Yes no symptom reported Cardiovascular: Yes no symptom reported Gastrointestional: Yes: constipation Genitourinary: Yes: no symptom reported Musculoskeletal: Yes: muscle stiffness Skin: Yes no symptom reported Psychiatric/Neurological: Yes: no symptom reported Endocrine: Yes: no symptom reported Physical Exam General Appearance: no apparent distress Skin: warm Respiratory: decreased breath sounds Heart: S1S2 Abdomen: soft, bowel sounds present Genitourinary: bladder flat Extremities: pulses present, atrophy Neurology: alert, oriented Musculoskeletal: Osteoarthritis, Stiffness Assessment Assessment IMP CKD STAGE 3-STABLE-CR OF 1.2 HYPOKALEMIA-RESOLVED RIGHT LE CELLULITIS HYPERVOLEMIA/CHF PLAN CONT WITH LASIX ANTIBIOTICS RENAL SIGN OFF NADIA EVANS MD Oct 23, 2017 11:22
[2017-10-23] MEDS ORDERED: METHOTREXATE SODIUM 2.5 MG TABLET PO SCH (12:00)
[2017-10-23 14:45] VITALS: BP 105/55
[2017-10-23] MEDS ORDERED: LACT1CAP19 PO (15:24)
[2017-10-23] MEDS ORDERED: CEPH-263 PO (15:24)
[2017-10-23] MEDS ORDERED: POTA20TA4 PO (15:24)
[2017-10-23] MEDS ORDERED: FURO40TA4 PO (15:24)
[2017-10-23] MEDS ORDERED: CALC0.25 PO (15:24)
--- NOTE | 2017-10-24 21:22 | DS ---
DATE OF DISCHARGE: 10/23/2017 HOSPITAL COURSE: The patient is a 77-year-old woman who presented with right lower extremity pain and swelling and was diagnosed with cellulitis, prompting admission to the hospital. She was started on IV antibiotics, which at time of discharge was switched to p.o. for completion of her regimen. 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 Medication regimen was optimized and she was fairly stable from cardiovascular standpoint. All her other medications were continued. Her presentation of weakness was attributed to multiple issues. First and foremost treatment for her lung cancer. The patient was eager to get discharged to home. PHYSICAL EXAMINATION: VITAL SIGNS: Show a blood pressure of 105/55, heart rate of 62 and respiratory rate at 18. No fevers. GENERAL: Alert and oriented. No acute distress. LUNGS: Clear. HEART: Irregular rate and rhythm. ABDOMEN: Positive bowel sounds. EXTREMITIES: With resolved erythema. Prominent varicose veins. DISCHARGE DIAGNOSIS: Cellulitis. DISCHARGE DISPOSITION: To home. DISCHARGE CONDITION: Improved. DISCHARGE MEDICATIONS: Please refer to MAR. DISCHARGE INSTRUCTIONS: The patient will follow up with her PCP in 1-2 weeks. She will follow up with Dr. Ross in 3 months. AMBROCIO MONTILLA MD DR: UR/nts JOB#: [id number] / [id number] CHRISTIAN Deshpande MD MTDD
[2017-11-19] MEDS ORDERED: DOXY100C2 PO (10:55)
[2017-11-19] MEDS ORDERED: CEFP200T PO (10:55)
== END 2017-10-23 16:35 | disposition home or self-care (01) | DRG 603 ==
LOC: ER 20:52 → 2 NORTH 22:36
PROVIDERS: ADMIT Internal Medicine; ATTEND Internal Medicine
DX: L03.115 Cellulitis of right lower limb (principal); E11.22 Type 2 diabetes mellitus with diabetic chronic kidney disease; E11.51 Type 2 diabetes mellitus with diabetic peripheral angiopathy without gangrene; G45.9 Transient cerebral ischemic attack, unspecified; N11.9 Chronic tubulo-interstitial nephritis, unspecified; C34.90 Malignant neoplasm of unspecified part of unspecified bronchus or lung; N25.81 Secondary hyperparathyroidism of renal origin; I50.9 Heart failure, unspecified; E87.6 Hypokalemia; F32.9 Major depressive disorder, single episode, unspecified; E78.5 Hyperlipidemia, unspecified; E03.9 Hypothyroidism, unspecified; F41.9 Anxiety disorder, unspecified; I08.0 Rheumatic disorders of both mitral and aortic valves; I25.10 Atherosclerotic heart disease of native coronary artery without angina pectoris; I48.91 Unspecified atrial fibrillation; K21.9 Gastro-esophageal reflux disease without esophagitis; M06.9 Rheumatoid arthritis, unspecified; M10.9 Gout, unspecified; N18.3 Chronic kidney disease, stage 3 (moderate); M19.90 Unspecified osteoarthritis, unspecified site; R62.7 Adult failure to thrive; Z82.49 Family history of ischemic heart disease and other diseases of the circulatory system; Z85.118 Personal history of other malignant neoplasm of bronchus and lung; Z87.891 Personal history of nicotine dependence; Z90.2 Acquired absence of lung [part of]; Z88.5 Allergy status to narcotic agent; Z88.8 Allergy status to other drugs, medicaments and biological substances; Z91.09 Other allergy status, other than to drugs and biological substances
CPT/HCPCS: 36415; 71010; 72125; 80048; 80053; 80076; 80202; 80307; 81001; 82553; 82962; 83036; 83605; 83690; 83735; 83880; 84132; 84484; 85007; 85025; 85610; 87040; 93005; 93971; J3370; J8610; 99285-25; G0479

== ENCOUNTER → 2017-10-29 | Outpatient (CLI) | payer MEDICARE ==
[2017-10-23 14:45] VITALS: BP 105/55
[~2017-10-29] MED LIST changes: +CALC0.25; +CALC0.25 PO; +CEPH-263 PO; +FURO40TA4 PO; +LACT1CAP19 PO
== END | disposition home or self-care (01) ==
LOC: PMGWOUND 09:18
PROVIDERS: ATTEND Emergency Medicine Undersea and Hyperbaric Medicine
DX: L97.112 Non-pressure chronic ulcer of right thigh with fat layer exposed (principal); S81.001D Unspecified open wound, right knee, subsequent encounter; E03.9 Hypothyroidism, unspecified; I48.91 Unspecified atrial fibrillation; F41.9 Anxiety disorder, unspecified; I25.10 Atherosclerotic heart disease of native coronary artery without angina pectoris; K21.9 Gastro-esophageal reflux disease without esophagitis; M10.9 Gout, unspecified; E78.5 Hyperlipidemia, unspecified; F32.9 Major depressive disorder, single episode, unspecified; M06.9 Rheumatoid arthritis, unspecified; E11.51 Type 2 diabetes mellitus with diabetic peripheral angiopathy without gangrene; M19.049 Primary osteoarthritis, unspecified hand; E11.22 Type 2 diabetes mellitus with diabetic chronic kidney disease; I13.0 Hypertensive heart and chronic kidney disease with heart failure and stage 1 through stage 4 chronic kidney disease, or unspecified chronic kidney disease; N18.3 Chronic kidney disease, stage 3 (moderate); I50.43 Acute on chronic combined systolic (congestive) and diastolic (congestive) heart failure; E66.01 Morbid (severe) obesity due to excess calories; Z68.22 Body mass index [BMI] 22.0-22.9, adult; Z79.01 Long term (current) use of anticoagulants; Z90.2 Acquired absence of lung [part of]; Z88.5 Allergy status to narcotic agent; Z88.8 Allergy status to other drugs, medicaments and biological substances; Z90.710 Acquired absence of both cervix and uterus; Z85.118 Personal history of other malignant neoplasm of bronchus and lung; Z87.891 Personal history of nicotine dependence; Z86.73 Personal history of transient ischemic attack (TIA), and cerebral infarction without residual deficits; Z89.421 Acquired absence of other right toe(s); Z89.422 Acquired absence of other left toe(s); Z90.49 Acquired absence of other specified parts of digestive tract; Z95.0 Presence of cardiac pacemaker; Z86.718 Personal history of other venous thrombosis and embolism; Z79.4 Long term (current) use of insulin; W19.XXXD Unspecified fall, subsequent encounter
CPT/HCPCS: 99214

== ENCOUNTER → 2017-11-12 | Outpatient (CLI) | payer MEDICARE ==
[2017-10-23 14:45] VITALS: BP 105/55
[~2017-11-12] MED LIST changes: +CEFP200T PO; +DOXY100C2 PO
== END | disposition home or self-care (01) ==
LOC: PMGWOUND 09:15
PROVIDERS: ATTEND Emergency Medicine Undersea and Hyperbaric Medicine
DX: E11.622 Type 2 diabetes mellitus with other skin ulcer (principal); L97.112 Non-pressure chronic ulcer of right thigh with fat layer exposed; E11.51 Type 2 diabetes mellitus with diabetic peripheral angiopathy without gangrene; E11.22 Type 2 diabetes mellitus with diabetic chronic kidney disease; I13.0 Hypertensive heart and chronic kidney disease with heart failure and stage 1 through stage 4 chronic kidney disease, or unspecified chronic kidney disease; N18.3 Chronic kidney disease, stage 3 (moderate); I50.43 Acute on chronic combined systolic (congestive) and diastolic (congestive) heart failure; E03.9 Hypothyroidism, unspecified; I48.91 Unspecified atrial fibrillation; F41.9 Anxiety disorder, unspecified; I25.10 Atherosclerotic heart disease of native coronary artery without angina pectoris; K21.9 Gastro-esophageal reflux disease without esophagitis; E78.5 Hyperlipidemia, unspecified; F32.9 Major depressive disorder, single episode, unspecified; M06.9 Rheumatoid arthritis, unspecified; M19.049 Primary osteoarthritis, unspecified hand; E66.01 Morbid (severe) obesity due to excess calories; Z68.22 Body mass index [BMI] 22.0-22.9, adult; Z79.01 Long term (current) use of anticoagulants; Z90.2 Acquired absence of lung [part of]; Z90.710 Acquired absence of both cervix and uterus; Z87.891 Personal history of nicotine dependence; Z89.421 Acquired absence of other right toe(s); Z89.422 Acquired absence of other left toe(s); Z90.49 Acquired absence of other specified parts of digestive tract; Z95.0 Presence of cardiac pacemaker; Z86.718 Personal history of other venous thrombosis and embolism; Z79.4 Long term (current) use of insulin; Z85.828 Personal history of other malignant neoplasm of skin; Z85.118 Personal history of other malignant neoplasm of bronchus and lung
CPT/HCPCS: 99213

== ENCOUNTER 2017-11-13 15:41 | Inpatient (IN) | payer MEDICARE ==
[~2017-11-13] VITALS: Ht 157.5 cm; Wt 49.9 kg
[~2017-11-13 15:41] MED LIST changes: -CEFP200T PO; -DOXY100C2 PO
[2017-11-13 16:26] LABS: BASO % 0 % (0-3); EOS % 0 % (0-3); HEMATOCRIT 37.8 % (36.0-47.0); HEMOGLOBIN 12.2 g/dL (12.0-15.5); LYMPH # 0.4 x10^3/uL (1.0-4.8); LYMPH % 2 % (24-48); MEAN CORPUSCULAR HEMOGLOBIN 33 pg (25-35); MEAN CORPUSCULAR HGB CONC 32 g/dL (31-37); MEAN CORPUSCULAR VOLUME 101 fL (79-100); MONO % 3 % (0-9); NEUT % 95 % (31-73); PLATELET COUNT 179 x10^3/uL (140-400); RED BLOOD COUNT 3.73 x10^6/uL (3.50-5.40); WHITE BLOOD COUNT 24.3 x10^3/uL (4.0-11.0)
[2017-11-13 16:35] LABS: INR 3.2 (0.8-1.1); PROTHROMBIN TIME PATIENT 30.9 SEC (11.7-14.0)
--- NOTE | 2017-11-13 16:41 | RAD ---
Right Lower Extremity Venous Doppler Ultrasound: Indication: Pain and swelling right lower extremity. Comparison: None. Procedure: Color flow, duplex and 2D images with spectral waveform analysis are obtained with and without compression in the area of the common femoral vein, superficial femoral vein - femoral vein junction, main femoral vein (superficial femoral vein) and popliteal vein. Veins of the proximal calf are also imaged. Findings: There is normal duplex flow, color flow and compressibility of all visualized vein segments. No evidence of deep venous thrombus is present. Impression: Normal venous Doppler ultrasound with no evidence of DVT.
[2017-11-13 16:42] LABS: CALCIUM 8.9 mg/dL (8.5-10.1); CREATININE 1.3 mg/dL (0.6-1.0); GFR 39.7; POTASSIUM 4.5 mmol/L (3.5-5.1)
[2017-11-13 16:47] LABS: ANISOCYTOSIS SLIGHT; PLT ESTIMATE ADEQUATE (ADEQUATE)
[2017-11-13 16:48] LABS: POLYCHROMASIA SLIGHT
[2017-11-13] MEDS ORDERED: ONDANSETRON PF 4 MG/2 ML VIAL. IV PRN (17:15)
[2017-11-13] MEDS ORDERED: VANCOMYCIN PER PHARMACY MC PRN (17:15)
[2017-11-13] MEDS ORDERED: ASPIRIN CHEWABLE 81 MG TABLET. PO ONE (17:15)
[2017-11-13] MEDS ORDERED: VANCOMYCIN 1.25 GM in IV 1/2 NORMAL SALINE 250 ML IV ONE (18:00)
[2017-11-13] MEDS: IV NORMAL SALINE 1000ML BAG 1,000 ML IV SCH (18:00)
[2017-11-13] MEDS ORDERED: ACETAMINOPHEN 325 MG TABLET. PO ONE (18:15)
[2017-11-13 18:26] LABS: BILIRUBIN,URINE NEGATIVE (NEG); GLUCOSE,URINE NEGATIVE (NEG); NITRITE,URINE NEGATIVE (NEG); PROTEIN,URINE NEGATIVE (NEG-TRACE)
[2017-11-13 18:33] LABS: BACTERIA,URINE 0 /HPF (0-FEW); SQUAMOUS EPITHELIAL CELL,UR FEW /LPF
--- NOTE | 2017-11-13 18:33 | PHYS DOC ---
Past Medical History Past Medical History: A-Fib, Anxiety, Cancer, CHF, Depression, GERD, Hypothyroid, Lung Disease, TIA Additional Past Medical Histor: L Lung CA Past Surgical History: Pacemaker Additional Past Surgical Histo: L Lung lobectomy, L shoulder, R hip, L leg Alcohol Use: None Drug Use: None Adult General Chief Complaint Chief Complaint: LOWER EXT PAIN HPI HPI 77-year-old female presenting to the emergency department today with right lower extremity pain with swelling. She has a history of cellulitis recently treated with Keflex however her pain and swelling and redness has returned. She has a history of A. fib on warfarin therapy and has a history of pacemaker. She is been keeping her extremity elevated which is helped with the swelling. She denies having a fever at home. She is never had a blood clot. She has pain in her right lower extremity is sharp moderate intermittent and without alleviating factors. Review of systems is negative for fevers chills headache confusion chest pain shortness of breath or cough. All other review of systems is negative unless otherwise noted in history of present illness. ED course: 77-year-old female presenting to the emergency department today with right lower quadrant abdominal pain and swelling and redness. Upon arrival the patient is afebrile with mild tachycardia. Physical exam she has redness of the right lower extremity is warm to touch. 2 second cap refill distally with palpable pulse. Normal neurovascular status in the right foot. Otherwise no effusion of the knee. Nontender range of motion of the right hip. The remainder the exam is unremarkable. Blood work shows leukocytosis. Ultrasound negative for DVT. Consistent with acute cellulitis. IV vancomycin ordered. Troponin came back at just above the reference range of normal. I ordered the patient to receive an aspirin however the patient refused. I placed a consult for cardiology and infectious disease and admitted the patient to Dr. Elias who accepted the patient for admission.I have assessed this patient clinically and believe that their condition requires an admission to the hospital. After consulting the admitting physician about this case, they have asked that I admit this patient to their service as an inpatient based on the clinical presentation and my impression. Review of Systems Review of Systems SEE ABOVE. Allergies Allergies Allergies Coded Allergies Type Severity Reaction Last Updated Verified adhesive Allergy Intermediate "Breaks out" 04/02/16 Yes albuterol Allergy Intermediate "CAN'T BREATHE" 04/02/16 Yes codeine Allergy Intermediate "Breaks out." 04/02/16 Yes oxycodone Allergy Intermediate Rash 04/02/16 Yes duloxetine Adverse Reaction Intermediate edema 04/02/16 Yes pregabalin Adverse Reaction Intermediate edema 04/02/16 Yes Physical Exam Physical Exam SEE ABOVE Constitutional: Well developed, well nourished, no acute distress, non-toxic appearance. HENT: Normocephalic, atraumatic, bilateral external ears normal, oropharynx moist, no oral exudates, nose normal. [] Eyes: PERRLA, EOMI, conjunctiva normal, no discharge. Neck: Normal range of motion, no tenderness, supple, no stridor. [] Cardiovascular:Heart rate regular rhythm, no murmur [] Lungs & Thorax: Bilateral breath sounds clear to auscultation [] Abdomen: Bowel sounds normal, soft, no tenderness, no masses, no pulsatile masses. [] Skin: Warm, dry, no erythema, no rash. [] Back: No tenderness, no CVA tenderness. [] Extremities:SEE ABOVE Neurologic: Alert and oriented X 3, normal motor function, normal sensory function, no focal deficits noted. [] Psychologic: Affect normal, judgement normal, mood normal. [] Current Patient Data Vital Signs Vital Signs Date Time Temp Pulse Resp B/P (MAP) Pulse Ox O2 Delivery O2 Flow Rate FiO2 11/13/17 15:45 99.2 97 20 114/70 (85) 100 Room Air 99.2 Lab Values Laboratory Tests Test 11/13/17 15:50 White Blood Count 24.3 x10^3/uL (4.0-11.0) H Red Blood Count 3.73 x10^6/uL (3.50-5.40) Hemoglobin 12.2 g/dL (12.0-15.5) Hematocrit 37.8 % (36.0-47.0) Mean Corpuscular Volume 101 fL (79-100) H Mean Corpuscular Hemoglobin 33 pg (25-35) Mean Corpuscular Hemoglobin Concent 32 g/dL (31-37) Red Cell Distribution Width 20.0 % (11.5-14.5) H Platelet Count 179 x10^3/uL (140-400) Neutrophils (%) (Auto) 95 % (31-73) H Lymphocytes (%) (Auto) 2 % (24-48) L Monocytes (%) (Auto) 3 % (0-9) Eosinophils (%) (Auto) 0 % (0-3) Basophils (%) (Auto) 0 % (0-3) Neutrophils # (Auto) 23.1 x10^3uL (1.8-7.7) H Lymphocytes # (Auto) 0.4 x10^3/uL (1.0-4.8) L Monocytes # (Auto) 0.7 x10^3/uL (0.0-1.1) Eosinophils # (Auto) 0.0 x10^3/uL (0.0-0.7) Basophils # (Auto) 0.0 x10^3/uL (0.0-0.2) Segmented Neutrophils % 78 % (35-66) H Band Neutrophils % 18 % (0-9) H Lymphocytes % 3 % (24-48) L Monocytes % 1 % (0-10) Platelet Estimate Adequate (ADEQUATE) Polychromasia Slight Anisocytosis Slight Macrocytosis Slight Prothrombin Time 30.9 SEC (11.7-14.0) H Prothrombin Time INR 3.2 (0.8-1.1) H PTT 42 SEC (24-38) H Sodium Level 135 mmol/L (136-145) L Potassium Level 4.5 mmol/L (3.5-5.1) Chloride Level 95 mmol/L (98-107) L Carbon Dioxide Level 29 mmol/L (21-32) Anion Gap 11 (6-14) Blood Urea Nitrogen 33 mg/dL (7-20) H Creatinine 1.3 mg/dL (0.6-1.0) H Estimated GFR (Cockcroft-Gault) 39.7 Glucose Level 119 mg/dL (70-99) H Calcium Level 8.9 mg/dL (8.5-10.1) Troponin I Quantitative 0.081 ng/mL (0.000-0.055) Laboratory Tests 11/13/17 15:50 Laboratory Tests 11/13/17 15:50 EKG EKG [] Radiology/Procedures Radiology/Procedures [] Course & Med Decision Making Course & Med Decision Making Pertinent Labs and Imaging studies reviewed. (See chart for details) [] Dragon Disclaimer Dragon Disclaimer This electronic medical record was generated, in whole or in part, using a voice recognition dictation system. Departure Departure Impression: Primary Impression: Cellulitis of right lower extremity Additional Impression: Cellulitis of right lower extremity without foot Disposition: 09 ADMITTED INPATIENT Admitting Physician: Olinda Elias Condition: STABLE Referrals: CHRISTIAN POSADA MD (PCP) Problem Qualifiers SUDHAKAR MORATAYA MD Nov 13, 2017 18:33
[2017-11-13 19:00] VITALS: BP 96/39
[2017-11-13] MEDS ORDERED: ACETAMINOPHEN 500 MG TABLET PO PRN (23:15)
[2017-11-13] MEDS: traMADol 50 MG TABLET PO PRN (23:23)
[2017-11-13] MEDS: ALPRAZolam 0.25 MG TABLET PO PRN (23:23)
[2017-11-13] MEDS: traZODone 50 MG TABLET. PO SCH (23:24)
[2017-11-13 23:38] VITALS: BP 109/55
[2017-11-14] MEDS: IV NORMAL SALINE 1000ML BAG 1,000 ML IV SCH ×2 (03:13→13:13)
[2017-11-14 03:28] VITALS: BP 103/51
[2017-11-14 06:42] LABS: BASO % 0 % (0-3); EOS % 0 % (0-3); HEMATOCRIT 31.1 % (36.0-47.0); HEMOGLOBIN 10.2 g/dL (12.0-15.5); LYMPH # 0.6 x10^3/uL (1.0-4.8); LYMPH % 3 % (24-48); MEAN CORPUSCULAR HEMOGLOBIN 33 pg (25-35); MEAN CORPUSCULAR HGB CONC 33 g/dL (31-37); MEAN CORPUSCULAR VOLUME 101 fL (79-100); MONO % 2 % (0-9); NEUT % 94 % (31-73); PLATELET COUNT 131 x10^3/uL (140-400); RED BLOOD COUNT 3.09 x10^6/uL (3.50-5.40); WHITE BLOOD COUNT 18.1 x10^3/uL (4.0-11.0)
[2017-11-14 07:00] VITALS: BP 102/55
[2017-11-14 07:03] LABS: CREATININE 1.2 mg/dL (0.6-1.0); GFR 43.6; POTASSIUM 3.6 mmol/L (3.5-5.1)
[2017-11-14] MEDS ORDERED: POTASSIUM CHLORIDE 20 MEQ TABLET.ER. PO SCH (08:00)
[2017-11-14] MEDS ORDERED: guaiFENesin DM 600/30MG 1 TAB TAB.ER.12H PO PRN (08:45)
[2017-11-14] MEDS ORDERED: ONDANSETRON PF 4 MG/2 ML VIAL. IV PRN (08:45)
[2017-11-14] MEDS ORDERED: metOLazone 2.5 MG TABLET PO SCH (09:00)
[2017-11-14] MEDS ORDERED: SPIRONOLACTONE 25 MG TABLET PO SCH (09:00)
[2017-11-14] MEDS ORDERED: BIOTIN 1000 MG PO SCH (09:00)
[2017-11-14] MEDS ORDERED: LACTOBACILLUS RHAMNOSUS GG 1 CAPSULE. PO SCH (09:00)
[2017-11-14] MEDS: ALLOPURINOL 100 MG TABLET. PO SCH (09:00)
[2017-11-14] MEDS: traMADol 50 MG TABLET PO PRN ×2 (09:22→16:45)
[2017-11-14] MEDS: LEVOTHYROXINE 100 MCG TABLET PO SCH (09:22)
[2017-11-14] MEDS: CALCIUM CARB/VIT D3 500/200 TABLET. PO SCH ×2 (09:23→16:50)
[2017-11-14] MEDS: CALCITRIOL 0.25 MCG CAPSULE. PO SCH (09:23)
[2017-11-14] MEDS: ALPRAZolam 0.25 MG TABLET PO PRN ×2 (09:23→16:45)
[2017-11-14] MEDS: FUROSEMIDE 40 MG TABLET. PO SCH (09:23)
[2017-11-14] MEDS: PROPAFENONE 150 MG TABLET. PO SCH ×2 (09:24→21:41)
--- NOTE | 2017-11-14 10:37 | PDOC ---
Provider Note Provider Note Pt seen dictated [id number] IMP: Recurrent RLE cellulitis was on keflex after last dc home RA A fib Lymphedema REC: Continue empiric vanc, pharmacy to dose monitor creatinine closely add empiric ceftriaxone bc elevate leg fu c/s and labs in am LILA YUSUF MD Nov 14, 2017 10:37
[2017-11-14] MEDS ORDERED: VANCOMYCIN PER PHARMACY MC PRN (10:45)
[2017-11-14] MEDS ORDERED: cefTRIAXone SODIUM 2 GM in IV DEXTROSE 5% 100 ML IV SCH (10:45)
[2017-11-14 11:00] VITALS: BP 101/56
[2017-11-14] MEDS ORDERED: cefTRIAXone IV Push 1 GM VIAL. IVP SCH (11:00)
[2017-11-14] MEDS ORDERED: ceFAZolin SODIUM IV Push 1 GM VIAL. IVP SCH (11:00)
[2017-11-14 11:33] LABS: INR 2.7 (0.8-1.1)
--- NOTE | 2017-11-14 11:43 | PDOC1 ---
History and Physical Date of Admission Date of Admission DATE: 11/14/17 TIME: 11:37 Identification/Chief Complaint Chief Complaint R leg swelling and pain Problems: Source Source: Caregiver, Chart review, Patient History of Present Illness History of Present Illness 77-year-old female with lots of comorbidities, was just discharged 3 weeks ago here coming in because of right leg cellulitis swelling and pain. Denies any fever. Started on vancomycin by ID. Nontoxic appearing. Labs are as follows: hemoglobin 10, WBC 18, platelets 131 mildly low. Creatinine 1.2. She has CKD with a GFR of 43. He follows with Dr. Chandra ruiz religiously. She is very particular with her medications as Dr. Ruiz has it down to " a T". She is on Lasix 40, spironolactone 50 once a day, metolazone every other day, Lasix 60 mg twice a day. But unfortunately, this regimen always changes every time she is in the hospital pending her fluid volume status and her potassium. Her finger waver is Dr. Ross. Her troponins 0.07 and 0.08, cardiology was consulted. EKG reassuring Urine on UA is clean. She is on methotrexate every Saturday for RA. She is on warfarin. I have no INR available to me. Diet leg inspected, it is elevated with one pillow. There is some redness and tender to touch, but no open or weeping lesions. There is no open wounds. 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 Past Medical History Cardiovascular: AFIB, CHF, Hyperlipidemia, Valve insufficiency Pulmonary: Previously Intubated CENTRAL NERVOUS SYSTEM: TIA GI: GERD Heme/Onc: Anemia NOS, Cancer Psych: Anxiety, Depression Musculoskeletal: Osteoarthritis, Stiffness Rheumatologic: Gout, Rheumatoid arthritis Endocrine: Diabetes, Hypothyroidism Past Surgical History Past Surgical History: Pacemaker, Cholecystectomy, Other Family History Family History: No Significant, Cancer Social History Smoke: No ALCOHOL: none Drugs: None Current Problem List Problem List Problems Medical Problems: (1) Cellulitis of right lower extremity Status: Acute (2) Cellulitis of right lower extremity without foot Status: Acute Problems: Current Medications Current Medications Current Medications Aspirin (Children'S Aspirin) 324 mg 1X ONCE PO ; Start 11/13/17 at 17:15; Stop 11/13/17 at 17:16; Status DC Vancomycin HCl (Vanco Per Pharmacy) 1 each PRN DAILY PRN MC SEE COMMENTS Last administered on 11/13/17 18:43; Start 11/13/17 at 17:15; Stop 11/14/17 at 10 :28; Status DC Ondansetron HCl (Zofran) 4 mg PRN Q8HRS PRN IV NAUSEA/VOMITING; Start at 17:15; Stop 11/14/17 at 08:38; Status DC Sodium Chloride 1,000 ml @ 100 mls/hr Q10H IV Last administered on 11/14/17 03:13; Start 11/13/17 at 17:13; Stop 11/14/17 at 17:12 Vancomycin HCl 1.25 gm/Sodium Chloride 250 ml @ 166.667 mls/hr 1X ONCE IV Last administered on 11/13/17 18:00; Start 11/13/17 at 18:00; Stop 11/13/17 at 19:29; Status DC Acetaminophen (Tylenol) 650 mg 1X ONCE PO Last administered on 11/13/17 18: 40; Start 11/13/17 at 18:15; Stop 11/13/17 at 18:16; Status DC Vancomycin HCl 750 mg/Sodium Chloride 250 ml @ 250 mls/hr Q24H IV ; Start at 18:00; Stop 11/14/17 at 18:00; Status DC Vancomycin HCl 1 each 1X ONCE MC ; Start 11/15/17 at 17:30; Stop 11/15/17 at 17:30; Status DC Acetaminophen (Tylenol) 500 mg PRN Q6HRS PRN PO MILD PAIN / TEMP; Start at 23:15 Alprazolam (Xanax) 0.25 mg PRN TID PRN PO ANXIETY / AGITATION Last administered on 11/14/17 09:23; Start 11/13/17 at 23:15 Tramadol HCl (Ultram) 50 mg PRN Q6HRS PRN PO MODERATE PAIN Last administered on 11/14/17 09:22; Start 11/13/17 at 23:15; Stop 11/14/17 at 10:09; Status DC Trazodone HCl (Desyrel) 25 mg HS PO Last administered on 11/13/17 23:24; Start 11/13/17 at 23:30 Lactobacillus Rhamnosus (Culturelle) 1 cap BID PO ; Start 11/14/17 at 09:00; Stop 11/14/17 at 10:32; Status DC Ondansetron HCl (Zofran) 4 mg PRN Q6HRS PRN IV NAUSEA/VOMITING; Start at 08:45; Stop 11/15/17 at 08:44 Acetaminophen (Tylenol) 650 mg PRN Q6HRS PRN PO pain; Start 11/14/17 at 08:45 Allopurinol (Zyloprim) 100 mg DAILY PO ; Start 11/14/17 at 09:00 Calcitriol (Rocaltrol) 0.25 mcg DAILY PO Last administered on 11/14/17 09:23 ; Start 11/14/17 at 09:00 Furosemide (Lasix) 40 mg DAILY PO Last administered on 11/14/17 09:23; Start 11/14/17 at 09:00 Guaifenesin (MUCINEX ER with DM) 1 tab PRN Q12HRS PRN PO COUGH; Start at 08:45 Lactobacillus Rhamnosus (Culturelle) 1 cap BID PO ; Start 11/14/17 at 09:00 Levothyroxine Sodium (Synthroid) 100 mcg DAILY07 PO Last administered on 09:22; Start 11/14/17 at 10:30 Potassium Chloride (Klor-Con) 20 meq DAILYWBKFT PO Last administered on 09:23; Start 11/14/17 at 08:00 Propafenone HCl (Rythmol) 150 mg BID PO Last administered on 11/14/17 09:24; Start 11/14/17 at 09:00 Spironolactone (Aldactone) 25 mg DAILY PO Last administered on 11/14/17 09:23 ; Start 11/14/17 at 09:00 Non-Formulary Medication 1,000 mg BID PO ; Start 11/14/17 at 09:00; Status UNV Calcium/Vitamin D (Oscal D 500mg/ 200uts) 1 tab BIDWMEALS PO Last administered on 11/14/17 09:23; Start 11/14/17 at 09:00 Cetirizine HCl (ZyrTEC) 10 mg DAILY PO ; Start 11/14/17 at 10:00 Fish Oil (Fish Oil) 1,000 mg DAILY PO ; Start 11/14/17 at 10:00 Pantoprazole Sodium (Protonix) 40 mg DAILYAC PO ; Start 11/14/17 at 11:30 Paroxetine HCl (Paxil) 20 mg DAILY PO ; Start 11/14/17 at 11:00 Artificial Tears (Artificial Tears) 1 drop DAILY OU ; Start 11/14/17 at 10:30 Hydroxychloroquine Sulfate (Plaquenil) 200 mg DAILY08 PO ; Start 11/14/17 at 11 :00 Ferrous Sulfate (Feosol) 325 mg DAILYWBKFT PO ; Start 11/14/17 at 12:00 Metolazone (Zaroxolyn) 5 mg DAILY PO Last administered on 11/14/17 09:24; Start 11/14/17 at 09:00 Tramadol HCl (Ultram) 50 mg PRN Q6HRS PRN PO PAIN; Start 11/14/17 at 08:45 Warfarin Sodium (Coumadin Per Pharmacy) 1 each PRN DAILY PRN MC SEE COMMENTS Last administered on 11/14/17 11:28; Start 11/14/17 at 08:45 Linezolid (Zyvox) 600 mg BID PO ; Start 11/14/17 at 21:00; Stop 11/14/17 at 21 :00; Status DC Cefazolin Sodium 1 gm/Dextrose 50 ml @ 100 mls/hr Q8HRS IV ; Start 11/14/17 at 14:00; Stop 11/14/17 at 14:00; Status DC Cefazolin Sodium (Ancef) 1 gm Q8HRS IVP ; Start 11/14/17 at 11:00; Stop at 11:00; Status DC Vancomycin HCl (Vanco Per Pharmacy) 1 each PRN DAILY PRN MC SEE COMMENTS Last administered on 11/14/17 11:21; Start 11/14/17 at 10:45 Ceftriaxone Sodium 2 gm/ Dextrose 100 ml @ 200 mls/hr Q24H IV ; Start at 10:45; Stop 11/14/17 at 10:45; Status DC Ceftriaxone Sodium (Rocephin) 1 gm Q24H IVP ; Start 11/14/17 at 11:00; Status Cancel Ceftriaxone Sodium (Rocephin) 2 gm Q24H IVP ; Start 11/14/17 at 11:00 Vancomycin HCl 750 mg/Sodium Chloride 250 ml @ 250 mls/hr Q24H IV ; Start at 18:00 Vancomycin HCl 1 each 1X ONCE MC ; Start 11/15/17 at 17:30; Stop 11/15/17 at 17:31 Warfarin Sodium (Coumadin - No Dose Today) 1 each 1X WARF ONCE MC ; Start at 16:00; Stop 11/14/17 at 16:01 Active Scripts Active Keflex (Cephalexin) 250 Mg Capsule 1 Cap PO TID Klor-Con M20 (Potassium Chloride) 20 Meq Tab.er.prt 20 Meq PO DAILYWBKFT Culturelle (Lactobacillus Rhamnosus Gg) 1 Each Cap.sprink 1 Cap PO BID Furosemide 40 Mg Tablet 40 Mg PO DAILY Calcitriol 0.25 Mcg Capsule 0.25 Mcg PO DAILY Aldactone (Spironolactone) 25 Mg Tablet 1 Tab PO DAILY Reported Calcitriol 0.25 Mcg Capsule Metolazone 5 Mg Tablet Methotrexate (Methotrexate Sodium) 2.5 Mg Tablet 7 Tab PO SATURDAY [hydroxyl-chloroquine] 200 Mg PO DAILY08 Calcium + Vitamin D Tablet (Calcium Carbonate/Vitamin D3) 1 Each Tablet 1 Each PO BID Claritin (Loratadine) 10 Mg Tablet 1 Tab PO DAILY PRN Coumadin (Warfarin Sodium) 6 Mg Tablet 6 Mg PO ,,,, Acetaminophen 500 Mg Tablet 1 Tab PO PRN Q6HRS PRN Mucinex Dm Er 600-30 Mg Tablet (Guaifenesin/Dextromethorphan) 1 Each Tab.er.12h 1 Tab PO PRN Q12HRS Trazodone Hcl 50 Mg Tablet 25 Mg PO HS Propafenone Hcl 150 Mg Tablet 150 Mg PO BID Systane 0.3-0.4% Eye Drops (Propylene Glycol/Peg 400/Pf) 1 Each Droperette 1 Each OP DAILY Xanax (Alprazolam) 0.25 Mg Tablet 1 Tab PO PRN TID PRN Biotin 1 Mg Capsule 1,000 Mg PO BID [lutein] 1 Tab BID [Iron ] 1 Tab DAILY Omeprazole 40 Mg Capsule.dr 40 Mg PO DAILY Tramadol Hcl 50 Mg Tablet 50 Mg PO PRN Q6HRS PRN Fish Oil 1,000 Mg Softgel ([place]-3 Fatty Acids/Fish Oil) 1 Each Capsule 1 Each PO DAILY Allopurinol 100 Mg Tablet 100 Mg PO DAILY Paxil (Paroxetine Hcl) 40 Mg Tablet 20 Mg PO DAILY Levothyroxine Sodium 100 Mcg Tablet 100 Mcg PO DAILY Allergies Allergies: Coded Allergies: albuterol (Verified Allergy, Severe, "CAN'T BREATHE", 11/14/17) adhesive (Verified Allergy, Intermediate, "Breaks out", 04/02/16) Pt states, "tape and band-aids." codeine (Verified Allergy, Intermediate, "Breaks out.", 04/02/16) oxycodone (Verified Allergy, Intermediate, Rash, 04/02/16) duloxetine (Verified Adverse Reaction, Intermediate, edema, 04/02/16) pregabalin (Verified Adverse Reaction, Intermediate, edema, 04/02/16) ROS Review of System as per history of present illness, the rest of 14 systems reviewed with her negative Physical Exam General: Alert, Oriented X3, Cooperative, No acute distress HEENT: Atraumatic, PERRLA, EOMI Lungs: Clear to auscultation, Normal air movement Heart: S1S2, RRR, no thrills, no rubs, no gallops, no murmurs Cardiovascular: S1, S2 Breasts: Normal, Rt breast nml w/o mass, Lt breast nml w/o mass, Nipples normal Abdomen: Normal bowel sounds, Soft, No tenderness, No hepatosplenomegaly, No masses PELVIC: Nml ext genitalia Extremities: Other (leg swelling, tender on palpation, no open lesions no weekly molds, some erythema and redness and warmth to touch, right lower extremity) Neuro: Normal gait, Normal speech, Strength at 5/5 X4 ext, Normal tone, Sensation intact, Cranial nerves 3-12 NL, Reflexes 2+ Psych/Mental Status: Mental status NL, Mood NL Vitals Vitals Vital Signs Date Time Temp Pulse Resp B/P (MAP) Pulse Ox O2 Delivery O2 Flow Rate FiO2 11/14/17 09:24 64 102/55 11/14/17 09:22 17 99 Room Air 11/14/17 07:00 98.5 98.5 Labs Labs Laboratory Tests Test 11/13/17 15:50 11/13/17 18:21 11/13/17 23:05 11/14/17 05:00 White Blood Count 24.3 x10^3/uL (4.0-11.0) 18.1 x10^3/uL (4.0-11.0) Red Blood Count 3.73 x10^6/uL (3.50-5.40) 3.09 x10^6/uL (3.50-5.40) Hemoglobin 12.2 g/dL (12.0-15.5) 10.2 g/dL (12.0-15.5) Hematocrit 37.8 % (36.0-47.0) 31.1 % (36.0-47.0) Mean Corpuscular Volume 101 fL (79-100) 101 fL (79-100) Mean Corpuscular Hemoglobin 33 pg (25-35) 33 pg (25-35) Mean Corpuscular Hemoglobin Concent 32 g/dL (31-37) 33 g/dL (31-37) Red Cell Distribution Width 20.0 % (11.5-14.5) 20.0 % (11.5-14.5) Platelet Count 179 x10^3/uL (140-400) 131 x10^3/uL (140-400) Neutrophils (%) (Auto) 95 % (31-73) 94 % (31-73) Lymphocytes (%) (Auto) 2 % (24-48) 3 % (24-48) Monocytes (%) (Auto) 3 % (0-9) 2 % (0-9) Eosinophils (%) (Auto) 0 % (0-3) 0 % (0-3) Basophils (%) (Auto) 0 % (0-3) 0 % (0-3) Neutrophils # (Auto) 23.1 x10^3uL (1.8-7.7) 17.0 x10^3uL (1.8-7.7) Lymphocytes # (Auto) 0.4 x10^3/uL (1.0-4.8) 0.6 x10^3/uL (1.0-4.8) Monocytes # (Auto) 0.7 x10^3/uL (0.0-1.1) 0.4 x10^3/uL (0.0-1.1) Eosinophils # (Auto) 0.0 x10^3/uL (0.0-0.7) 0.0 x10^3/uL (0.0-0.7) Basophils # (Auto) 0.0 x10^3/uL (0.0-0.2) 0.0 x10^3/uL (0.0-0.2) Segmented Neutrophils % 78 % (35-66) Band Neutrophils % 18 % (0-9) Lymphocytes % 3 % (24-48) Monocytes % 1 % (0-10) Platelet Estimate Adequate (ADEQUATE) Polychromasia Slight Anisocytosis Slight Macrocytosis Slight Prothrombin Time 30.9 SEC (11.7-14.0) Prothromb Time International Ratio 3.2 (0.8-1.1) Activated Partial Thromboplast Time 42 SEC (24-38) Sodium Level 135 mmol/L (136-145) 139 mmol/L (136-145) Potassium Level 4.5 mmol/L (3.5-5.1) 3.6 mmol/L (3.5-5.1) Chloride Level 95 mmol/L (98-107) 101 mmol/L (98-107) Carbon Dioxide Level 29 mmol/L (21-32) 28 mmol/L (21-32) Anion Gap 11 (6-14) 10 (6-14) Blood Urea Nitrogen 33 mg/dL (7-20) 28 mg/dL (7-20) Creatinine 1.3 mg/dL (0.6-1.0) 1.2 mg/dL (0.6-1.0) Estimated GFR (Cockcroft-Gault) 39.7 43.6 Glucose Level 119 mg/dL (70-99) 80 mg/dL (70-99) Calcium Level 8.9 mg/dL (8.5-10.1) 8.0 mg/dL (8.5-10.1) Troponin I Quantitative 0.081 ng/mL (0.000-0.055) 0.080 ng/mL (0.000-0.055) 0.078 ng/mL (0.000-0.055) Urine Collection Type Unknown Urine Color Yellow Urine Clarity Clear Urine pH 7.0 Urine Specific [place] 1.010 Urine Protein Negative mg/dL (NEG-TRACE) Urine Glucose (UA) Negative mg/dL (NEG) Urine Ketones (Stick) Negative mg/dL (NEG) Urine Blood Negative (NEG) Urine Nitrite Negative (NEG) Urine Bilirubin Negative (NEG) Urine Urobilinogen Dipstick 1.0 mg/dL (0.2 mg/dL) Urine Leukocyte Esterase Negative (NEG) Urine RBC 1-2 /HPF (0-2) Urine WBC 1-4 /HPF (0-4) Urine Squamous Epithelial Cells Few /LPF Urine Bacteria 0 /HPF (0-FEW) Urine Hyaline Casts Few /HPF Urine Mucus Slight /LPF Erythrocyte Sedimentation Rate 23 (0-25) Laboratory Tests Test 11/13/17 15:50 11/13/17 18:21 11/13/17 23:05 11/14/17 05:00 White Blood Count 24.3 x10^3/uL (4.0-11.0) 18.1 x10^3/uL (4.0-11.0) Red Blood Count 3.73 x10^6/uL (3.50-5.40) 3.09 x10^6/uL (3.50-5.40) Hemoglobin 12.2 g/dL (12.0-15.5) 10.2 g/dL (12.0-15.5) Hematocrit 37.8 % (36.0-47.0) 31.1 % (36.0-47.0) Mean Corpuscular Volume 101 fL (79-100) 101 fL (79-100) Mean Corpuscular Hemoglobin 33 pg (25-35) 33 pg (25-35) Mean Corpuscular Hemoglobin Concent 32 g/dL (31-37) 33 g/dL (31-37) Red Cell Distribution Width 20.0 % (11.5-14.5) 20.0 % (11.5-14.5) Platelet Count 179 x10^3/uL (140-400) 131 x10^3/uL (140-400) Neutrophils (%) (Auto) 95 % (31-73) 94 % (31-73) Lymphocytes (%) (Auto) 2 % (24-48) 3 % (24-48) Monocytes (%) (Auto) 3 % (0-9) 2 % (0-9) Eosinophils (%) (Auto) 0 % (0-3) 0 % (0-3) Basophils (%) (Auto) 0 % (0-3) 0 % (0-3) Neutrophils # (Auto) 23.1 x10^3uL (1.8-7.7) 17.0 x10^3uL (1.8-7.7) Lymphocytes # (Auto) 0.4 x10^3/uL (1.0-4.8) 0.6 x10^3/uL (1.0-4.8) Monocytes # (Auto) 0.7 x10^3/uL (0.0-1.1) 0.4 x10^3/uL (0.0-1.1) Eosinophils # (Auto) 0.0 x10^3/uL (0.0-0.7) 0.0 x10^3/uL (0.0-0.7) Basophils # (Auto) 0.0 x10^3/uL (0.0-0.2) 0.0 x10^3/uL (0.0-0.2) Segmented Neutrophils % 78 % (35-66) Band Neutrophils % 18 % (0-9) Lymphocytes % 3 % (24-48) Monocytes % 1 % (0-10) Platelet Estimate Adequate (ADEQUATE) Polychromasia Slight Anisocytosis Slight Macrocytosis Slight Prothrombin Time 30.9 SEC (11.7-14.0) Prothromb Time International Ratio 3.2 (0.8-1.1) Activated Partial Thromboplast Time 42 SEC (24-38) Sodium Level 135 mmol/L (136-145) 139 mmol/L (136-145) Potassium Level 4.5 mmol/L (3.5-5.1) 3.6 mmol/L (3.5-5.1) Chloride Level 95 mmol/L (98-107) 101 mmol/L (98-107) Carbon Dioxide Level 29 mmol/L (21-32) 28 mmol/L (21-32) Anion Gap 11 (6-14) 10 (6-14) Blood Urea Nitrogen 33 mg/dL (7-20) 28 mg/dL (7-20) Creatinine 1.3 mg/dL (0.6-1.0) 1.2 mg/dL (0.6-1.0) Estimated GFR (Cockcroft-Gault) 39.7 43.6 Glucose Level 119 mg/dL (70-99) 80 mg/dL (70-99) Calcium Level 8.9 mg/dL (8.5-10.1) 8.0 mg/dL (8.5-10.1) Troponin I Quantitative 0.081 ng/mL (0.000-0.055) 0.080 ng/mL (0.000-0.055) 0.078 ng/mL (0.000-0.055) Urine Collection Type Unknown Urine Color Yellow Urine Clarity Clear Urine pH 7.0 Urine Specific [place] 1.010 Urine Protein Negative mg/dL (NEG-TRACE) Urine Glucose (UA) Negative mg/dL (NEG) Urine Ketones (Stick) Negative mg/dL (NEG) Urine Blood Negative (NEG) Urine Nitrite Negative (NEG) Urine Bilirubin Negative (NEG) Urine Urobilinogen Dipstick 1.0 mg/dL (0.2 mg/dL) Urine Leukocyte Esterase Negative (NEG) Urine RBC 1-2 /HPF (0-2) Urine WBC 1-4 /HPF (0-4) Urine Squamous Epithelial Cells Few /LPF Urine Bacteria 0 /HPF (0-FEW) Urine Hyaline Casts Few /HPF Urine Mucus Slight /LPF Erythrocyte Sedimentation Rate 23 (0-25) VTE Prophylaxis Ordered VTE Prophylaxis Devices: Yes VTE Pharmacological Prophylaxi: Yes Assessment/Plan Assessment/Plan Assessment: Right lower extremity cellulitis, no open wounds no weeping lesions. Started on vancomycin by emergency room. Now ID is following Hypertension, CHF, troponin leak, CK-MB, RA on methotrexate, Sepsis, seizures by mouth a with leukocytosis 18 Diabetes type 2 chronic stable Mild from cytopenia Plan: Admit to CVC because of the troponin leak But cardiac-thomson looks reassuring. I'm okay transferring out of the cardiac floor if beds are needed ID consulted on vancomycin Need to watch out kidney function. She does not have a history of MRSA maybe we chaka escalate? But I defer that to infectious disease. Watch lytes closely as patient is on vancomycin and has CKD. Resume home meds very particular about her real medications namely 40 Lasix metolazone every other day 50s prolactin daily and 60 mg Lasix twice a day PT OT Keep legs elevated Discussed with her and RN at bedside PAMELA GORDON MD Nov 14, 2017 11:43
[2017-11-14] MEDS: PANTOPRAZOLE 40 MG TABLET.DR. PO SCH (12:12)
[2017-11-14] MEDS: FERROUS SULFATE 325 MG TABLET. PO SCH (12:12)
[2017-11-14] MEDS: LACTOBACILLUS RHAMNOSUS GG 1 CAPSULE. PO SCH ×2 (12:12→21:39)
[2017-11-14] MEDS: HYDROXYCHLOROQUINE 200 MG TABLET PO SCH (12:12)
[2017-11-14] MEDS: PARoxetine 20 MG TABLET PO SCH (12:12)
[2017-11-14] MEDS: OMEGA-3 FATTY ACIDS/FISH OIL 1,000 MG CAPSULE. PO SCH (12:13)
[2017-11-14] MEDS: POLYVINYL ALCOHOL 1.4% OPHTH SOLUTION 15ML BOTTLE. OU SCH (12:13)
[2017-11-14] MEDS: CETIRIZINE HCL 10 MG TABLET. PO SCH (12:13)
[2017-11-14] MEDS: ACETAMINOPHEN 325 MG TABLET. PO PRN (12:23)
[2017-11-14] MEDS ORDERED: ceFAZolin SODIUM 1 GM in IV DEXTROSE 5% 50 ML IV SCH (14:00)
[2017-11-14] MEDS: cefTRIAXone IV Push 2 GM VIAL. IVP SCH (14:21)
[2017-11-14 15:00] VITALS: BP 109/55
[2017-11-14] MEDS ORDERED: WARFARIN 3 MG TABLET. PO ONE (16:00)
[2017-11-14] MEDS: POTASSIUM CHLORIDE 20 MEQ TABLET.ER. PO SCH (16:46)
[2017-11-14] MEDS: VITS A & D/LANOLIN TOPICAL OINTMENT 56GM TUBE. TP PRN (16:50)
--- NOTE | 2017-11-14 17:45 | PDOC2 ---
CONSULT Date of Consult Date of Consult DATE: 11/14/17 TIME: 17:37 Reason for Consult Reason for Consult: Cardiac history Referring Physician Referring Physician: Dr Elder Identification/Chief Complaint Chief Complaint Leg cellulitis Problems: History of Present Illness Reason for Visit: This patient is a very pleasant 77-year-old lady with a known history of valvular heart disease that has had multiple recent admissions to this institution for a variety of problems. It has been my contention that L a lot of the issues with her have been due to how she takes her medications and that because she has become forgetful and at times confused she has messed up her medication regimen and has come in with dehydration, overloaded, hyperkalemic, hypokalemic and has a variety of other issues such as renal insufficiency. The patient did not agree that there were any medication mistakes made and she takes her medications exactly as she is instructed. Dr. Cohen and I have been trying to manage all of her problems. The patient had a fall in which she injured her knee and now comes in with an area of cellulitis over the patella. She denies any cardiac issues. No palpitations, no significant rest dyspnea, no loss of consciousness. No cardiac complaints Past Medical History Cardiovascular: AFIB, CHF, HTN, Hyperlipidemia, Valve insufficiency, Pulmonary hypertension Pulmonary: Previously Intubated CENTRAL NERVOUS SYSTEM: TIA GI: Constipation, GERD Heme/Onc: Anemia NOS, Cancer Psych: Anxiety, Depression Musculoskeletal: Osteoarthritis, Stiffness Rheumatologic: Gout, Rheumatoid arthritis Endocrine: Diabetes, Hypothyroidism Past Surgical History Past Surgical History: Pacemaker, Cholecystectomy, Other Family History Family History: No Significant, Cancer Social History No ALCOHOL: none Drugs: None Lives: with Family Current Problem List Problem List Problems Medical Problems: (1) Cellulitis of right lower extremity Status: Acute (2) Cellulitis of right lower extremity without foot Status: Acute Current Medications Current Medications Current Medications Aspirin (Children'S Aspirin) 324 mg 1X ONCE PO ; Start 11/13/17 at 17:15; Stop 11/13/17 at 17:16; Status DC Vancomycin HCl (Vanco Per Pharmacy) 1 each PRN DAILY PRN MC SEE COMMENTS Last administered on 11/13/17t 18:43; Start 11/13/17 at 17:15; Stop 11/14/17 at 10 :28; Status DC Ondansetron HCl (Zofran) 4 mg PRN Q8HRS PRN IV NAUSEA/VOMITING; Start at 17:15; Stop 11/14/17 at 08:38; Status DC Sodium Chloride 1,000 ml @ 100 mls/hr Q10H IV Last administered on 11/14/17 03:13; Start 11/13/17 at 17:13; Stop 11/14/17 at 17:12; Status DC Vancomycin HCl 1.25 gm/Sodium Chloride 250 ml @ 166.667 mls/hr 1X ONCE IV Last administered on 11/13/17 18:00; Start 11/13/17 at 18:00; Stop 11/13/17 at 19:29; Status DC Acetaminophen (Tylenol) 650 mg 1X ONCE PO Last administered on 11/13/17 18: 40; Start 11/13/17 at 18:15; Stop 11/13/17 at 18:16; Status DC Vancomycin HCl 750 mg/Sodium Chloride 250 ml @ 250 mls/hr Q24H IV ; Start at 18:00; Stop 11/14/17 at 18:00; Status DC Vancomycin HCl 1 each 1X ONCE MC ; Start 11/15/17 at 17:30; Stop 11/15/17 at 17:30; Status DC Acetaminophen (Tylenol) 500 mg PRN Q6HRS PRN PO MILD PAIN / TEMP; Start at 23:15 Alprazolam (Xanax) 0.25 mg PRN TID PRN PO ANXIETY / AGITATION Last administered on 11/14/17 16:45; Start 11/13/17 at 23:15 Tramadol HCl (Ultram) 50 mg PRN Q6HRS PRN PO MODERATE PAIN Last administered on 11/14/17 09:22; Start 11/13/17 at 23:15; Stop 11/14/17 at 10:09; Status DC Trazodone HCl (Desyrel) 25 mg HS PO Last administered on 11/13/17 23:24; Start 11/13/17 at 23:30 Lactobacillus Rhamnosus (Culturelle) 1 cap BID PO ; Start 11/14/17 at 09:00; Stop 11/14/17 at 10:32; Status DC Ondansetron HCl (Zofran) 4 mg PRN Q6HRS PRN IV NAUSEA/VOMITING; Start at 08:45; Stop 11/15/17 at 08:44 Acetaminophen (Tylenol) 650 mg PRN Q6HRS PRN PO pain Last administered on 11/14 12:23; Start 11/14/17 at 08:45 Allopurinol (Zyloprim) 100 mg DAILY PO Last administered on 11/14/17 09:00; Start 11/14/17 at 09:00 Calcitriol (Rocaltrol) 0.25 mcg DAILY PO Last administered on 11/14/17 09:23 ; Start 11/14/17 at 09:00 Furosemide (Lasix) 40 mg DAILY PO Last administered on 11/14/17 09:23; Start 11/14/17 at 09:00 Guaifenesin (MUCINEX ER with DM) 1 tab PRN Q12HRS PRN PO COUGH; Start at 08:45 Lactobacillus Rhamnosus (Culturelle) 1 cap BID PO Last administered on 12:12; Start 11/14/17 at 09:00 Levothyroxine Sodium (Synthroid) 100 mcg DAILY07 PO Last administered on 09:22; Start 11/14/17 at 10:30 Potassium Chloride (Klor-Con) 20 meq DAILYWBKFT PO Last administered on 09:23; Start 11/14/17 at 08:00; Stop 11/14/17 at 11:52; Status DC Propafenone HCl (Rythmol) 150 mg BID PO Last administered on 11/14/17 09:24; Start 11/14/17 at 09:00 Spironolactone (Aldactone) 25 mg DAILY PO Last administered on 11/14/17 09:23 ; Start 11/14/17 at 09:00; Stop 11/14/17 at 11:51; Status DC Non-Formulary Medication 1,000 mg BID PO ; Start 11/14/17 at 09:00; Status UNV Calcium/Vitamin D (Oscal D 500mg/ 200uts) 1 tab BIDWMEALS PO Last administered on 11/14/17 16:50; Start 11/14/17 at 09:00 Cetirizine HCl (ZyrTEC) 10 mg DAILY PO Last administered on 11/14/17 12:13; Start 11/14/17 at 10:00 Fish Oil (Fish Oil) 1,000 mg DAILY PO Last administered on 11/14/17 12:13; Start 11/14/17 at 10:00 Pantoprazole Sodium (Protonix) 40 mg DAILYAC PO Last administered on 12:12; Start 11/14/17 at 11:30 Paroxetine HCl (Paxil) 20 mg DAILY PO Last administered on 11/14/17 12:12; Start 11/14/17 at 11:00 Artificial Tears (Artificial Tears) 1 drop DAILY OU Last administered on 12:13; Start 11/14/17 at 10:30 Hydroxychloroquine Sulfate (Plaquenil) 200 mg DAILY08 PO Last administered on 11/14/17 12:12; Start 11/14/17 at 11:00 Ferrous Sulfate (Feosol) 325 mg DAILYWBKFT PO Last administered on 11/14/17 12:12; Start 11/14/17 at 12:00 Metolazone (Zaroxolyn) 5 mg DAILY PO Last administered on 11/14/17 09:24; Start 11/14/17 at 09:00; Stop 11/14/17 at 11:47; Status DC Tramadol HCl (Ultram) 50 mg PRN Q6HRS PRN PO PAIN Last administered on 16:45; Start 11/14/17 at 08:45 Warfarin Sodium (Coumadin Per Pharmacy) 1 each PRN DAILY PRN MC SEE COMMENTS Last administered on 11/14/17 12:29; Start 11/14/17 at 08:45 Linezolid (Zyvox) 600 mg BID PO ; Start 11/14/17 at 21:00; Stop 11/14/17 at 21 :00; Status DC Cefazolin Sodium 1 gm/Dextrose 50 ml @ 100 mls/hr Q8HRS IV ; Start 11/14/17 at 14:00; Stop 11/14/17 at 14:00; Status DC Cefazolin Sodium (Ancef) 1 gm Q8HRS IVP ; Start 11/14/17 at 11:00; Stop at 11:00; Status DC Vancomycin HCl (Vanco Per Pharmacy) 1 each PRN DAILY PRN MC SEE COMMENTS Last administered on 11/14/17 11:21; Start 11/14/17 at 10:45 Ceftriaxone Sodium 2 gm/ Dextrose 100 ml @ 200 mls/hr Q24H IV ; Start at 10:45; Stop 11/14/17 at 10:45; Status DC Ceftriaxone Sodium (Rocephin) 1 gm Q24H IVP ; Start 11/14/17 at 11:00; Status Cancel Ceftriaxone Sodium (Rocephin) 2 gm Q24H IVP Last administered on 11/14/17 14: 21; Start 11/14/17 at 11:00 Vancomycin HCl 750 mg/Sodium Chloride 250 ml @ 250 mls/hr Q24H IV Last administered on 11/14/17 16:53; Start 11/14/17 at 18:00 Vancomycin HCl 1 each 1X ONCE MC ; Start 11/15/17 at 17:30; Stop 11/15/17 at 17:31 Warfarin Sodium (Coumadin - No Dose Today) 1 each 1X WARF ONCE MC ; Start at 16:00; Stop 11/14/17 at 16:01; Status Cancel Metolazone (Zaroxolyn) 5 mg QMWF PO ; Start 11/15/17 at 16:00 Spironolactone (Aldactone) 50 mg DAILY PO ; Start 11/15/17 at 09:00 Potassium Chloride (Klor-Con) 60 meq BIDWMEALS PO Last administered on 16:46; Start 11/14/17 at 17:00 Methotrexate (Rheumatrex) 17.5 mg QWE PO ; Start 11/20/17 at 16:00 Warfarin Sodium (Coumadin) 3 mg 1X WARF ONCE PO Last administered on 16:45; Start 11/14/17 at 16:00; Stop 11/14/17 at 16:01; Status DC Vitamin A/Vitamin D (Vitamin A & D Ointment) 1 nelli PRN Q1HR PRN TP SKIN PROTECTION Last administered on 11/14/17 16:50; Start 11/14/17 at 14:00 Active Scripts Active Keflex (Cephalexin) 250 Mg Capsule 1 Cap PO TID Klor-Con M20 (Potassium Chloride) 20 Meq Tab.er.prt 20 Meq PO DAILYWBKFT Culturelle (Lactobacillus Rhamnosus Gg) 1 Each Cap.sprink 1 Cap PO BID Furosemide 40 Mg Tablet 40 Mg PO DAILY Calcitriol 0.25 Mcg Capsule 0.25 Mcg PO DAILY Aldactone (Spironolactone) 25 Mg Tablet 1 Tab PO DAILY Reported Calcitriol 0.25 Mcg Capsule Metolazone 5 Mg Tablet Methotrexate (Methotrexate Sodium) 2.5 Mg Tablet 7 Tab PO SATURDAY [hydroxyl-chloroquine] 200 Mg PO DAILY08 Calcium + Vitamin D Tablet (Calcium Carbonate/Vitamin D3) 1 Each Tablet 1 Each PO BID Claritin (Loratadine) 10 Mg Tablet 1 Tab PO DAILY PRN Coumadin (Warfarin Sodium) 6 Mg Tablet 6 Mg PO ,,,, Acetaminophen 500 Mg Tablet 1 Tab PO PRN Q6HRS PRN Mucinex Dm Er 600-30 Mg Tablet (Guaifenesin/Dextromethorphan) 1 Each Tab.er.12h 1 Tab PO PRN Q12HRS Trazodone Hcl 50 Mg Tablet 25 Mg PO HS Propafenone Hcl 150 Mg Tablet 150 Mg PO BID Systane 0.3-0.4% Eye Drops (Propylene Glycol/Peg 400/Pf) 1 Each Droperette 1 Each OP DAILY Xanax (Alprazolam) 0.25 Mg Tablet 1 Tab PO PRN TID PRN Biotin 1 Mg Capsule 1,000 Mg PO BID [lutein] 1 Tab BID [Iron ] 1 Tab DAILY Omeprazole 40 Mg Capsule.dr 40 Mg PO DAILY Tramadol Hcl 50 Mg Tablet 50 Mg PO PRN Q6HRS PRN Fish Oil 1,000 Mg Softgel ([place]-3 Fatty Acids/Fish Oil) 1 Each Capsule 1 Each PO DAILY Allopurinol 100 Mg Tablet 100 Mg PO DAILY Paxil (Paroxetine Hcl) 40 Mg Tablet 20 Mg PO DAILY Levothyroxine Sodium 100 Mcg Tablet 100 Mcg PO DAILY Allergies Allergies: Coded Allergies: albuterol (Verified Allergy, Severe, "CAN'T BREATHE", 11/14/17) adhesive (Verified Allergy, Intermediate, "Breaks out", 04/02/16) Pt states, "tape and band-aids." codeine (Verified Allergy, Intermediate, "Breaks out.", 04/02/16) oxycodone (Verified Allergy, Intermediate, Rash, 04/02/16) duloxetine (Verified Adverse Reaction, Intermediate, edema, 04/02/16) pregabalin (Verified Adverse Reaction, Intermediate, edema, 04/02/16) Physical Exam General: Alert, Oriented X3, Cooperative HEENT: PERRLA Lungs: Clear to auscultation Heart: Other (irregularly irregular, S1-S2, no changes in systolic and diastolic murmur.) Abdomen: Normal bowel sounds, Soft Extremities: Other (area of excoriation and laceration with redness over the patella.) Vitals VITALS Vital Signs Date Time Temp Pulse Resp B/P (MAP) Pulse Ox O2 Delivery O2 Flow Rate FiO2 11/14/17 16:45 18 100 Room Air 11/14/17 15:00 97.9 59 109/55 (73) 97.9 Labs Labs Laboratory Tests Test 11/13/17 15:50 11/13/17 18:21 11/13/17 23:05 11/14/17 05:00 White Blood Count 24.3 x10^3/uL (4.0-11.0) 18.1 x10^3/uL (4.0-11.0) Red Blood Count 3.73 x10^6/uL (3.50-5.40) 3.09 x10^6/uL (3.50-5.40) Hemoglobin 12.2 g/dL (12.0-15.5) 10.2 g/dL (12.0-15.5) Hematocrit 37.8 % (36.0-47.0) 31.1 % (36.0-47.0) Mean Corpuscular Volume 101 fL (79-100) 101 fL (79-100) Mean Corpuscular Hemoglobin 33 pg (25-35) 33 pg (25-35) Mean Corpuscular Hemoglobin Concent 32 g/dL (31-37) 33 g/dL (31-37) Red Cell Distribution Width 20.0 % (11.5-14.5) 20.0 % (11.5-14.5) Platelet Count 179 x10^3/uL (140-400) 131 x10^3/uL (140-400) Neutrophils (%) (Auto) 95 % (31-73) 94 % (31-73) Lymphocytes (%) (Auto) 2 % (24-48) 3 % (24-48) Monocytes (%) (Auto) 3 % (0-9) 2 % (0-9) Eosinophils (%) (Auto) 0 % (0-3) 0 % (0-3) Basophils (%) (Auto) 0 % (0-3) 0 % (0-3) Neutrophils # (Auto) 23.1 x10^3uL (1.8-7.7) 17.0 x10^3uL (1.8-7.7) Lymphocytes # (Auto) 0.4 x10^3/uL (1.0-4.8) 0.6 x10^3/uL (1.0-4.8) Monocytes # (Auto) 0.7 x10^3/uL (0.0-1.1) 0.4 x10^3/uL (0.0-1.1) Eosinophils # (Auto) 0.0 x10^3/uL (0.0-0.7) 0.0 x10^3/uL (0.0-0.7) Basophils # (Auto) 0.0 x10^3/uL (0.0-0.2) 0.0 x10^3/uL (0.0-0.2) Segmented Neutrophils % 78 % (35-66) Band Neutrophils % 18 % (0-9) Lymphocytes % 3 % (24-48) Monocytes % 1 % (0-10) Platelet Estimate Adequate (ADEQUATE) Polychromasia Slight Anisocytosis Slight Macrocytosis Slight Prothrombin Time 30.9 SEC (11.7-14.0) Prothromb Time International Ratio 3.2 (0.8-1.1) Activated Partial Thromboplast Time 42 SEC (24-38) Sodium Level 135 mmol/L (136-145) 139 mmol/L (136-145) Potassium Level 4.5 mmol/L (3.5-5.1) 3.6 mmol/L (3.5-5.1) Chloride Level 95 mmol/L (98-107) 101 mmol/L (98-107) Carbon Dioxide Level 29 mmol/L (21-32) 28 mmol/L (21-32) Anion Gap 11 (6-14) 10 (6-14) Blood Urea Nitrogen 33 mg/dL (7-20) 28 mg/dL (7-20) Creatinine 1.3 mg/dL (0.6-1.0) 1.2 mg/dL (0.6-1.0) Estimated GFR (Cockcroft-Gault) 39.7 43.6 Glucose Level 119 mg/dL (70-99) 80 mg/dL (70-99) Calcium Level 8.9 mg/dL (8.5-10.1) 8.0 mg/dL (8.5-10.1) Troponin I Quantitative 0.081 ng/mL (0.000-0.055) 0.080 ng/mL (0.000-0.055) 0.078 ng/mL (0.000-0.055) Urine Collection Type Unknown Urine Color Yellow Urine Clarity Clear Urine pH 7.0 Urine Specific [place] 1.010 Urine Protein Negative mg/dL (NEG-TRACE) Urine Glucose (UA) Negative mg/dL (NEG) Urine Ketones (Stick) Negative mg/dL (NEG) Urine Blood Negative (NEG) Urine Nitrite Negative (NEG) Urine Bilirubin Negative (NEG) Urine Urobilinogen Dipstick 1.0 mg/dL (0.2 mg/dL) Urine Leukocyte Esterase Negative (NEG) Urine RBC 1-2 /HPF (0-2) Urine WBC 1-4 /HPF (0-4) Urine Squamous Epithelial Cells Few /LPF Urine Bacteria 0 /HPF (0-FEW) Urine Hyaline Casts Few /HPF Urine Mucus Slight /LPF Erythrocyte Sedimentation Rate 23 (0-25) Test 11/14/17 10:45 Prothrombin Time 27.0 SEC (11.7-14.0) Prothromb Time International Ratio 2.7 (0.8-1.1) Laboratory Tests Test 11/13/17 18:21 11/13/17 23:05 11/14/17 05:00 11/14/17 10:45 Urine Collection Type Unknown Urine Color Yellow Urine Clarity Clear Urine pH 7.0 Urine Specific [place] 1.010 Urine Protein Negative mg/dL (NEG-TRACE) Urine Glucose (UA) Negative mg/dL (NEG) Urine Ketones (Stick) Negative mg/dL (NEG) Urine Blood Negative (NEG) Urine Nitrite Negative (NEG) Urine Bilirubin Negative (NEG) Urine Urobilinogen Dipstick 1.0 mg/dL (0.2 mg/dL) Urine Leukocyte Esterase Negative (NEG) Urine RBC 1-2 /HPF (0-2) Urine WBC 1-4 /HPF (0-4) Urine Squamous Epithelial Cells Few /LPF Urine Bacteria 0 /HPF (0-FEW) Urine Hyaline Casts Few /HPF Urine Mucus Slight /LPF Troponin I Quantitative 0.080 ng/mL (0.000-0.055) 0.078 ng/mL (0.000-0.055) White Blood Count 18.1 x10^3/uL (4.0-11.0) Red Blood Count 3.09 x10^6/uL (3.50-5.40) Hemoglobin 10.2 g/dL (12.0-15.5) Hematocrit 31.1 % (36.0-47.0) Mean Corpuscular Volume 101 fL (79-100) Mean Corpuscular Hemoglobin 33 pg (25-35) Mean Corpuscular Hemoglobin Concent 33 g/dL (31-37) Red Cell Distribution Width 20.0 % (11.5-14.5) Platelet Count 131 x10^3/uL (140-400) Neutrophils (%) (Auto) 94 % (31-73) Lymphocytes (%) (Auto) 3 % (24-48) Monocytes (%) (Auto) 2 % (0-9) Eosinophils (%) (Auto) 0 % (0-3) Basophils (%) (Auto) 0 % (0-3) Neutrophils # (Auto) 17.0 x10^3uL (1.8-7.7) Lymphocytes # (Auto) 0.6 x10^3/uL (1.0-4.8) Monocytes # (Auto) 0.4 x10^3/uL (0.0-1.1) Eosinophils # (Auto) 0.0 x10^3/uL (0.0-0.7) Basophils # (Auto) 0.0 x10^3/uL (0.0-0.2) Erythrocyte Sedimentation Rate 23 (0-25) Sodium Level 139 mmol/L (136-145) Potassium Level 3.6 mmol/L (3.5-5.1) Chloride Level 101 mmol/L (98-107) Carbon Dioxide Level 28 mmol/L (21-32) Anion Gap 10 (6-14) Blood Urea Nitrogen 28 mg/dL (7-20) Creatinine 1.2 mg/dL (0.6-1.0) Estimated GFR (Cockcroft-Gault) 43.6 Glucose Level 80 mg/dL (70-99) Calcium Level 8.0 mg/dL (8.5-10.1) Prothrombin Time 27.0 SEC (11.7-14.0) Prothromb Time International Ratio 2.7 (0.8-1.1) Assessment/Plan Assessment/Plan This patient with multiple problems including chronic atrial fibrillation renal insufficiency valvular heart disease and aortic insufficiency comes in following a fall. She has a resulting cellulitis. From a cardiac standpoint she appears to be compensated. I agree with present plan. Thank you very much for asking me to participate in the care of this patient. CJ DIAL MD Nov 14, 2017 17:44
[2017-11-14] MEDS ORDERED: VANCOMYCIN 750 MG in IV 1/2 NORMAL SALINE 250 ML IV SCH ×4 (18:00)
[2017-11-14 19:00] VITALS: BP 99/50
[2017-11-14] MEDS ORDERED: LINEZOLID 600 MG TABLET PO SCH (21:00)
[2017-11-14] MEDS: traZODone 50 MG TABLET. PO SCH (21:40)
--- NOTE | 2017-11-14 22:04 | CONS ---
DATE OF CONSULTATION: REFERRING PHYSICIAN: Dr. Olinda Elias. REASON FOR CONSULTATION: Right lower extremity cellulitis, recurrent. HISTORY OF PRESENT ILLNESS: A 77-year-old female who was recently discharged from [facility] returned to ED yesterday with a recurrence of right lower extremity swelling and pain. She was recently treated with IV vancomycin during her last hospitalization in September and was discharged on Keflex; which she was done a week ago; however, the pain and swelling returned when she stopped the Keflex. She denies any fevers or chills. Denies any nausea, vomiting, shortness of breath, sore throat, runny nose, chest pain, chest pain with deep breathing, or any other joint pain. She does have a history of rheumatoid arthritis and has a baseline pain from osteoarthritis, but no new changes. REVIEW OF SYSTEMS: Negative except for above. The patient received IV vancomycin. White count is elevated. Ultrasound was done, which was negative for DVT. Troponin was just above the reference range of normal, so she was admitted to Cardiology Service for further evaluation and treatment at this time. ALLERGIES: ADHESIVE, ALBUTEROL, CODEINE, OXYCODONE, DULOXETINE, PREGABALIN. REVIEW OF SYSTEMS: Negative except for above, on exam. CURRENT MEDICATIONS: IV vancomycin. Other medications: Reviewed. PAST MEDICAL HISTORY: Both second toes removal from complication of rheumatoid arthritis, acoustic neuroma, chronic lymphedema, atrial fibrillation, history of CHF, history of anemia, left lung lobectomy, right shoulder surgery, hypothyroidism, depression, GERD, history of lung cancer with left lung lobectomy, anxiety, history of CHF. FAMILY HISTORY: Coronary artery disease. SOCIAL HISTORY: Quit smoking. No ETOH. No illicit drug use. Lives at home. PHYSICAL EXAMINATION: GENERAL: Alert and oriented x 3 female, cooperative, in no acute distress. VITAL SIGNS: Temperature 98.5, pulse 64, respiration rate 17 and blood pressure 102/55. GENERAL: Alert, oriented x 3, cooperative female in no acute distress, lying comfortably in bed. HEENT: Normocephalic, atraumatic, anicteric. No oral lesions. NECK: Supple. No JVD. LUNGS: Clear bilaterally. HEART: S1, S2. Systolic murmur 2/6. ABDOMEN: Soft, bowel sounds present, nontender, nondistended. No rebound, no guarding. EXTREMITIES: Right leg edema present with diffuse tenderness below the knee and going up to the lower one-third of the left lower extremity redness, tenderness present. Left leg, trace edema. No tenderness. Bilateral varicosities present. No calf tenderness. Right knee replacement site has skin lesion from an old scar which was from a fall in May of 2017. MUSCULOSKELETAL: No joint effusion, no restriction of range of motion. No effusion. No overlying redness. CENTRAL NERVOUS SYSTEM: Grossly nonfocal. PSYCHIATRIC: Appropriate mood and affect. Psych looks okay. LABORATORY DATA: White count 24.3, currently 18.1, hemoglobin 12.2, currently 10.2, platelets 179. Today is 131, neutrophil 94%. IMPRESSION: 1. 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 2. History of rheumatoid arthritis with a second toe surgery. 3. Degenerative joint disease. 4. Lung cancer, status post lobectomy. 5. Left shoulder surgery. 6. Right hip surgery. 7. Gastroesophageal reflux disease. 8. Depression. 9. History of congestive heart failure. 10. History of atrial fibrillation. 11. Anxiety and depression. 12. History of transient ischemic attack. 13. Chronic lymphedema of bilateral lower extremity. 14. Bilateral lower extremity varicosities. RECOMMENDATIONS: 1. Continue empiric vancomycin and ceftriaxone 2. Obtain blood cultures x 2. 3. Elevate lower extremity. 4. Continue local care. 5. Continue probiotics. 6. Follow up cultures and labs in a.m. Thank you, Dr. Elias for consulting Infectious Disease to participate in this patient's care. We will follow along with you. LILA YUSUF MD DR: KRISTAL/yo JOB#: [id number] / [id number]
[2017-11-14 23:00] VITALS: BP 95/53
[2017-11-15 03:00] VITALS: BP 97/51
[2017-11-15 04:54] LABS: BASO % 0 % (0-3); EOS % 0 % (0-3); HEMATOCRIT 31.1 % (36.0-47.0); HEMOGLOBIN 10.2 g/dL (12.0-15.5); LYMPH # 0.6 x10^3/uL (1.0-4.8); LYMPH % 5 % (24-48); MEAN CORPUSCULAR HEMOGLOBIN 33 pg (25-35); MEAN CORPUSCULAR HGB CONC 33 g/dL (31-37); MEAN CORPUSCULAR VOLUME 101 fL (79-100); MONO % 1 % (0-9); NEUT % 94 % (31-73); PLATELET COUNT 122 x10^3/uL (140-400); RED BLOOD COUNT 3.07 x10^6/uL (3.50-5.40); WHITE BLOOD COUNT 13.2 x10^3/uL (4.0-11.0)
[2017-11-15 05:05] LABS: INR 2.3 (0.8-1.1)
[2017-11-15 05:30] LABS: CALCIUM 7.9 mg/dL (8.5-10.1); CREATININE 1.5 mg/dL (0.6-1.0); GFR 33.7
[2017-11-15 05:35] LABS: POTASSIUM 2.9 mmol/L (3.5-5.1)
[2017-11-15] MEDS: traMADol 50 MG TABLET PO PRN ×2 (05:46→16:07)
[2017-11-15] MEDS ORDERED: POTASSIUM CHLORIDE 10MEQ 100 ML IV SCH (06:00)
[2017-11-15] MEDS ORDERED: POTASSIUM CHLORIDE 20 MEQ/15 ML ORAL LIQUID. PO ONE (06:30)
[2017-11-15] MEDS: ALPRAZolam 0.25 MG TABLET PO PRN ×2 (06:40→16:06)
[2017-11-15 07:00] VITALS: BP 106/54
[2017-11-15] MEDS: CALCITRIOL 0.25 MCG CAPSULE. PO SCH (08:22)
[2017-11-15] MEDS: PROPAFENONE 150 MG TABLET. PO SCH ×2 (08:23→20:44)
[2017-11-15] MEDS: CETIRIZINE HCL 10 MG TABLET. PO SCH (08:23)
[2017-11-15] MEDS: SPIRONOLACTONE 25 MG TABLET PO SCH (08:23)
[2017-11-15] MEDS: OMEGA-3 FATTY ACIDS/FISH OIL 1,000 MG CAPSULE. PO SCH (08:24)
[2017-11-15] MEDS: ALLOPURINOL 100 MG TABLET. PO SCH (08:24)
[2017-11-15] MEDS: FUROSEMIDE 40 MG TABLET. PO SCH (08:24)
[2017-11-15] MEDS: LEVOTHYROXINE 100 MCG TABLET PO SCH (08:24)
[2017-11-15] MEDS: LACTOBACILLUS RHAMNOSUS GG 1 CAPSULE. PO SCH ×2 (08:24→20:44)
[2017-11-15] MEDS: PANTOPRAZOLE 40 MG TABLET.DR. PO SCH (08:25)
[2017-11-15] MEDS: CALCIUM CARB/VIT D3 500/200 TABLET. PO SCH ×2 (08:25→16:06)
[2017-11-15] MEDS: POTASSIUM CHLORIDE 20 MEQ TABLET.ER. PO SCH ×2 (08:25→16:06)
[2017-11-15] MEDS: FERROUS SULFATE 325 MG TABLET. PO SCH (08:25)
[2017-11-15] MEDS: HYDROXYCHLOROQUINE 200 MG TABLET PO SCH (08:25)
[2017-11-15] MEDS: POLYVINYL ALCOHOL 1.4% OPHTH SOLUTION 15ML BOTTLE. OU SCH (08:25)
[2017-11-15] MEDS: PARoxetine 20 MG TABLET PO SCH (08:25)
[2017-11-15 10:28] LABS: CALCIUM 7.4 mg/dL (8.5-10.1); CREATININE 1.5 mg/dL (0.6-1.0); GFR 33.7
[2017-11-15 11:00] VITALS: BP 111/63
--- NOTE | 2017-11-15 11:05 | PDOC ---
PROGRESS NOTES Chief Complaint Chief Complaint Right leg pain and swelling. Cellulitis. Renal failure Diabetes Hypothyroidism Anxiety and depression History of Present Illness History of Present Illness Erythema on the lateral side of the right leg. Continuing to treat cellulitis. Patient reports being short of breath today. Will consult pulmonology. Stage 2 kidney disease. Consult nephrology. VSS. Blood pressure a little low, but patient says that is her normal. Vitals Vitals Vital Signs Date Time Temp Pulse Resp B/P (MAP) Pulse Ox O2 Delivery O2 Flow Rate FiO2 11/15/17 08:23 61 97/51 11/15/17 08:00 Room Air 11/15/17 07:00 97.5 20 98 97.5 Physical Exam General: Alert, Oriented X3, Cooperative Heart: Regular rate, Normal S1, Normal S2, Other (irregularly irregular, S1-S2 , no changes in systolic and diastolic murmur.) Lungs: Clear, Other Abdomen: Normal bowel sounds, Soft Extremities: Other (area of excoriation and laceration with redness over the patella.) Labs LABS Laboratory Tests Test 11/15/17 04:10 11/15/17 10:10 White Blood Count 13.2 x10^3/uL (4.0-11.0) Red Blood Count 3.07 x10^6/uL (3.50-5.40) Hemoglobin 10.2 g/dL (12.0-15.5) Hematocrit 31.1 % (36.0-47.0) Mean Corpuscular Volume 101 fL (79-100) Mean Corpuscular Hemoglobin 33 pg (25-35) Mean Corpuscular Hemoglobin Concent 33 g/dL (31-37) Red Cell Distribution Width 20.0 % (11.5-14.5) Platelet Count 122 x10^3/uL (140-400) Neutrophils (%) (Auto) 94 % (31-73) Lymphocytes (%) (Auto) 5 % (24-48) Monocytes (%) (Auto) 1 % (0-9) Eosinophils (%) (Auto) 0 % (0-3) Basophils (%) (Auto) 0 % (0-3) Neutrophils # (Auto) 12.5 x10^3uL (1.8-7.7) Lymphocytes # (Auto) 0.6 x10^3/uL (1.0-4.8) Monocytes # (Auto) 0.1 x10^3/uL (0.0-1.1) Eosinophils # (Auto) 0.0 x10^3/uL (0.0-0.7) Basophils # (Auto) 0.0 x10^3/uL (0.0-0.2) Prothrombin Time 24.0 SEC (11.7-14.0) Prothromb Time International Ratio 2.3 (0.8-1.1) Sodium Level 139 mmol/L (136-145) 139 mmol/L (136-145) Potassium Level 2.9 mmol/L (3.5-5.1) 4.0 mmol/L (3.5-5.1) Chloride Level 102 mmol/L (98-107) 103 mmol/L (98-107) Carbon Dioxide Level 26 mmol/L (21-32) 27 mmol/L (21-32) Anion Gap 11 (6-14) 9 (6-14) Blood Urea Nitrogen 34 mg/dL (7-20) 34 mg/dL (7-20) Creatinine 1.5 mg/dL (0.6-1.0) 1.5 mg/dL (0.6-1.0) Estimated GFR (Cockcroft-Gault) 33.7 33.7 Glucose Level 77 mg/dL (70-99) 92 mg/dL (70-99) Calcium Level 7.9 mg/dL (8.5-10.1) 7.4 mg/dL (8.5-10.1) Review of Systems Review of Systems Complains of SOA Denies abdominal pain Assessment and Plan Assessmemt and Plan Problems Medical Problems: (1) Cellulitis of right lower extremity Status: Acute (2) Cellulitis of right lower extremity without foot Status: Acute Assessment Right leg pain and swelling. Cellulitis. Renal failure Diabetes Hypothyroidism Anxiety and depression Plan Antibiotics, vancomycin Repeat labs Consult pulmonology Consult nephrology Continue home meds Problems: Comment Review of Relevant I have reviewed the following items leila (where applicable) has been applied. Labs Laboratory Tests Test 11/13/17 15:50 11/13/17 18:21 11/13/17 23:05 11/14/17 05:00 White Blood Count 24.3 x10^3/uL (4.0-11.0) 18.1 x10^3/uL (4.0-11.0) Red Blood Count 3.73 x10^6/uL (3.50-5.40) 3.09 x10^6/uL (3.50-5.40) Hemoglobin 12.2 g/dL (12.0-15.5) 10.2 g/dL (12.0-15.5) Hematocrit 37.8 % (36.0-47.0) 31.1 % (36.0-47.0) Mean Corpuscular Volume 101 fL (79-100) 101 fL (79-100) Mean Corpuscular Hemoglobin 33 pg (25-35) 33 pg (25-35) Mean Corpuscular Hemoglobin Concent 32 g/dL (31-37) 33 g/dL (31-37) Red Cell Distribution Width 20.0 % (11.5-14.5) 20.0 % (11.5-14.5) Platelet Count 179 x10^3/uL (140-400) 131 x10^3/uL (140-400) Neutrophils (%) (Auto) 95 % (31-73) 94 % (31-73) Lymphocytes (%) (Auto) 2 % (24-48) 3 % (24-48) Monocytes (%) (Auto) 3 % (0-9) 2 % (0-9) Eosinophils (%) (Auto) 0 % (0-3) 0 % (0-3) Basophils (%) (Auto) 0 % (0-3) 0 % (0-3) Neutrophils # (Auto) 23.1 x10^3uL (1.8-7.7) 17.0 x10^3uL (1.8-7.7) Lymphocytes # (Auto) 0.4 x10^3/uL (1.0-4.8) 0.6 x10^3/uL (1.0-4.8) Monocytes # (Auto) 0.7 x10^3/uL (0.0-1.1) 0.4 x10^3/uL (0.0-1.1) Eosinophils # (Auto) 0.0 x10^3/uL (0.0-0.7) 0.0 x10^3/uL (0.0-0.7) Basophils # (Auto) 0.0 x10^3/uL (0.0-0.2) 0.0 x10^3/uL (0.0-0.2) Segmented Neutrophils % 78 % (35-66) Band Neutrophils % 18 % (0-9) Lymphocytes % 3 % (24-48) Monocytes % 1 % (0-10) Platelet Estimate Adequate (ADEQUATE) Polychromasia Slight Anisocytosis Slight Macrocytosis Slight Prothrombin Time 30.9 SEC (11.7-14.0) Prothromb Time International Ratio 3.2 (0.8-1.1) Activated Partial Thromboplast Time 42 SEC (24-38) Sodium Level 135 mmol/L (136-145) 139 mmol/L (136-145) Potassium Level 4.5 mmol/L (3.5-5.1) 3.6 mmol/L (3.5-5.1) Chloride Level 95 mmol/L (98-107) 101 mmol/L (98-107) Carbon Dioxide Level 29 mmol/L (21-32) 28 mmol/L (21-32) Anion Gap 11 (6-14) 10 (6-14) Blood Urea Nitrogen 33 mg/dL (7-20) 28 mg/dL (7-20) Creatinine 1.3 mg/dL (0.6-1.0) 1.2 mg/dL (0.6-1.0) Estimated GFR (Cockcroft-Gault) 39.7 43.6 Glucose Level 119 mg/dL (70-99) 80 mg/dL (70-99) Calcium Level 8.9 mg/dL (8.5-10.1) 8.0 mg/dL (8.5-10.1) Troponin I Quantitative 0.081 ng/mL (0.000-0.055) 0.080 ng/mL (0.000-0.055) 0.078 ng/mL (0.000-0.055) Urine Collection Type Unknown Urine Color Yellow Urine Clarity Clear Urine pH 7.0 Urine Specific [place] 1.010 Urine Protein Negative mg/dL (NEG-TRACE) Urine Glucose (UA) Negative mg/dL (NEG) Urine Ketones (Stick) Negative mg/dL (NEG) Urine Blood Negative (NEG) Urine Nitrite Negative (NEG) Urine Bilirubin Negative (NEG) Urine Urobilinogen Dipstick 1.0 mg/dL (0.2 mg/dL) Urine Leukocyte Esterase Negative (NEG) Urine RBC 1-2 /HPF (0-2) Urine WBC 1-4 /HPF (0-4) Urine Squamous Epithelial Cells Few /LPF Urine Bacteria 0 /HPF (0-FEW) Urine Hyaline Casts Few /HPF Urine Mucus Slight /LPF Erythrocyte Sedimentation Rate 23 (0-25) Test 11/14/17 10:45 11/15/17 04:10 11/15/17 10:10 Prothrombin Time 27.0 SEC (11.7-14.0) 24.0 SEC (11.7-14.0) Prothromb Time International Ratio 2.7 (0.8-1.1) 2.3 (0.8-1.1) White Blood Count 13.2 x10^3/uL (4.0-11.0) Red Blood Count 3.07 x10^6/uL (3.50-5.40) Hemoglobin 10.2 g/dL (12.0-15.5) Hematocrit 31.1 % (36.0-47.0) Mean Corpuscular Volume 101 fL (79-100) Mean Corpuscular Hemoglobin 33 pg (25-35) Mean Corpuscular Hemoglobin Concent 33 g/dL (31-37) Red Cell Distribution Width 20.0 % (11.5-14.5) Platelet Count 122 x10^3/uL (140-400) Neutrophils (%) (Auto) 94 % (31-73) Lymphocytes (%) (Auto) 5 % (24-48) Monocytes (%) (Auto) 1 % (0-9) Eosinophils (%) (Auto) 0 % (0-3) Basophils (%) (Auto) 0 % (0-3) Neutrophils # (Auto) 12.5 x10^3uL (1.8-7.7) Lymphocytes # (Auto) 0.6 x10^3/uL (1.0-4.8) Monocytes # (Auto) 0.1 x10^3/uL (0.0-1.1) Eosinophils # (Auto) 0.0 x10^3/uL (0.0-0.7) Basophils # (Auto) 0.0 x10^3/uL (0.0-0.2) Sodium Level 139 mmol/L (136-145) 139 mmol/L (136-145) Potassium Level 2.9 mmol/L (3.5-5.1) 4.0 mmol/L (3.5-5.1) Chloride Level 102 mmol/L (98-107) 103 mmol/L (98-107) Carbon Dioxide Level 26 mmol/L (21-32) 27 mmol/L (21-32) Anion Gap 11 (6-14) 9 (6-14) Blood Urea Nitrogen 34 mg/dL (7-20) 34 mg/dL (7-20) Creatinine 1.5 mg/dL (0.6-1.0) 1.5 mg/dL (0.6-1.0) Estimated GFR (Cockcroft-Gault) 33.7 33.7 Glucose Level 77 mg/dL (70-99) 92 mg/dL (70-99) Calcium Level 7.9 mg/dL (8.5-10.1) 7.4 mg/dL (8.5-10.1) Laboratory Tests Test 11/15/17 04:10 11/15/17 10:10 White Blood Count 13.2 x10^3/uL (4.0-11.0) Red Blood Count 3.07 x10^6/uL (3.50-5.40) Hemoglobin 10.2 g/dL (12.0-15.5) Hematocrit 31.1 % (36.0-47.0) Mean Corpuscular Volume 101 fL (79-100) Mean Corpuscular Hemoglobin 33 pg (25-35) Mean Corpuscular Hemoglobin Concent 33 g/dL (31-37) Red Cell Distribution Width 20.0 % (11.5-14.5) Platelet Count 122 x10^3/uL (140-400) Neutrophils (%) (Auto) 94 % (31-73) Lymphocytes (%) (Auto) 5 % (24-48) Monocytes (%) (Auto) 1 % (0-9) Eosinophils (%) (Auto) 0 % (0-3) Basophils (%) (Auto) 0 % (0-3) Neutrophils # (Auto) 12.5 x10^3uL (1.8-7.7) Lymphocytes # (Auto) 0.6 x10^3/uL (1.0-4.8) Monocytes # (Auto) 0.1 x10^3/uL (0.0-1.1) Eosinophils # (Auto) 0.0 x10^3/uL (0.0-0.7) Basophils # (Auto) 0.0 x10^3/uL (0.0-0.2) Prothrombin Time 24.0 SEC (11.7-14.0) Prothromb Time International Ratio 2.3 (0.8-1.1) Sodium Level 139 mmol/L (136-145) 139 mmol/L (136-145) Potassium Level 2.9 mmol/L (3.5-5.1) 4.0 mmol/L (3.5-5.1) Chloride Level 102 mmol/L (98-107) 103 mmol/L (98-107) Carbon Dioxide Level 26 mmol/L (21-32) 27 mmol/L (21-32) Anion Gap 11 (6-14) 9 (6-14) Blood Urea Nitrogen 34 mg/dL (7-20) 34 mg/dL (7-20) Creatinine 1.5 mg/dL (0.6-1.0) 1.5 mg/dL (0.6-1.0) Estimated GFR (Cockcroft-Gault) 33.7 33.7 Glucose Level 77 mg/dL (70-99) 92 mg/dL (70-99) Calcium Level 7.9 mg/dL (8.5-10.1) 7.4 mg/dL (8.5-10.1) Medications Current Medications Aspirin (Children'S Aspirin) 324 mg 1X ONCE PO ; Start 11/13/17 at 17:15; Stop 11/13/17 at 17:16; Status DC Vancomycin HCl (Vanco Per Pharmacy) 1 each PRN DAILY PRN MC SEE COMMENTS Last administered on 11/13/17t 18:43; Start 11/13/17 at 17:15; Stop 11/14/17 at 10 :28; Status DC Ondansetron HCl (Zofran) 4 mg PRN Q8HRS PRN IV NAUSEA/VOMITING; Start at 17:15; Stop 11/14/17 at 08:38; Status DC Sodium Chloride 1,000 ml @ 100 mls/hr Q10H IV Last administered on 11/14/17 03:13; Start 11/13/17 at 17:13; Stop 11/14/17 at 17:12; Status DC Vancomycin HCl 1.25 gm/Sodium Chloride 250 ml @ 166.667 mls/hr 1X ONCE IV Last administered on 11/13/17 18:00; Start 11/13/17 at 18:00; Stop 11/13/17 at 19:29; Status DC Acetaminophen (Tylenol) 650 mg 1X ONCE PO Last administered on 11/13/17 18: 40; Start 11/13/17 at 18:15; Stop 11/13/17 at 18:16; Status DC Vancomycin HCl 750 mg/Sodium Chloride 250 ml @ 250 mls/hr Q24H IV ; Start at 18:00; Stop 11/14/17 at 18:00; Status DC Vancomycin HCl 1 each 1X ONCE MC ; Start 11/15/17 at 17:30; Stop 11/15/17 at 17:30; Status DC Acetaminophen (Tylenol) 500 mg PRN Q6HRS PRN PO MILD PAIN / TEMP Last administered on 11/14/17 21:39; Start 11/13/17 at 23:15 Alprazolam (Xanax) 0.25 mg PRN TID PRN PO ANXIETY / AGITATION Last administered on 11/15/17 06:40; Start 11/13/17 at 23:15 Tramadol HCl (Ultram) 50 mg PRN Q6HRS PRN PO MODERATE PAIN Last administered on 11/14/17 09:22; Start 11/13/17 at 23:15; Stop 11/14/17 at 10:09; Status DC Trazodone HCl (Desyrel) 25 mg HS PO Last administered on 11/14/17 21:40; Start 11/13/17 at 23:30 Lactobacillus Rhamnosus (Culturelle) 1 cap BID PO ; Start 11/14/17 at 09:00; Stop 11/14/17 at 10:32; Status DC Ondansetron HCl (Zofran) 4 mg PRN Q6HRS PRN IV NAUSEA/VOMITING; Start at 08:45; Stop 11/15/17 at 08:44; Status DC Acetaminophen (Tylenol) 650 mg PRN Q6HRS PRN PO pain Last administered on 11/14 12:23; Start 11/14/17 at 08:45 Allopurinol (Zyloprim) 100 mg DAILY PO Last administered on 11/15/17 08:24; Start 11/14/17 at 09:00 Calcitriol (Rocaltrol) 0.25 mcg DAILY PO Last administered on 11/15/17 08:22 ; Start 11/14/17 at 09:00 Furosemide (Lasix) 40 mg DAILY PO Last administered on 11/15/17 08:24; Start 11/14/17 at 09:00 Guaifenesin (MUCINEX ER with DM) 1 tab PRN Q12HRS PRN PO COUGH; Start at 08:45 Lactobacillus Rhamnosus (Culturelle) 1 cap BID PO Last administered on 08:24; Start 11/14/17 at 09:00 Levothyroxine Sodium (Synthroid) 100 mcg DAILY07 PO Last administered on 08:24; Start 11/14/17 at 10:30 Potassium Chloride (Klor-Con) 20 meq DAILYWBKFT PO Last administered on 09:23; Start 11/14/17 at 08:00; Stop 11/14/17 at 11:52; Status DC Propafenone HCl (Rythmol) 150 mg BID PO Last administered on 11/15/17 08:23; Start 11/14/17 at 09:00 Spironolactone (Aldactone) 25 mg DAILY PO Last administered on 11/14/17 09:23 ; Start 11/14/17 at 09:00; Stop 11/14/17 at 11:51; Status DC Non-Formulary Medication 1,000 mg BID PO ; Start 11/14/17 at 09:00; Status UNV Calcium/Vitamin D (Oscal D 500mg/ 200uts) 1 tab BIDWMEALS PO Last administered on 11/15/17 08:25; Start 11/14/17 at 09:00 Cetirizine HCl (ZyrTEC) 10 mg DAILY PO Last administered on 11/14/17 12:13; Start 11/14/17 at 10:00 Fish Oil (Fish Oil) 1,000 mg DAILY PO Last administered on 11/15/17 08:24; Start 11/14/17 at 10:00 Pantoprazole Sodium (Protonix) 40 mg DAILYAC PO Last administered on 08:25; Start 11/14/17 at 11:30 Paroxetine HCl (Paxil) 20 mg DAILY PO Last administered on 11/15/17 08:25; Start 11/14/17 at 11:00 Artificial Tears (Artificial Tears) 1 drop DAILY OU Last administered on 08:25; Start 11/14/17 at 10:30 Hydroxychloroquine Sulfate (Plaquenil) 200 mg DAILY08 PO Last administered on 11/15/17 08:25; Start 11/14/17 at 11:00 Ferrous Sulfate (Feosol) 325 mg DAILYWBKFT PO Last administered on 11/15/17 08:25; Start 11/14/17 at 12:00 Metolazone (Zaroxolyn) 5 mg DAILY PO Last administered on 11/14/17 09:24; Start 11/14/17 at 09:00; Stop 11/14/17 at 11:47; Status DC Tramadol HCl (Ultram) 50 mg PRN Q6HRS PRN PO PAIN Last administered on 05:46; Start 11/14/17 at 08:45 Warfarin Sodium (Coumadin Per Pharmacy) 1 each PRN DAILY PRN MC SEE COMMENTS Last administered on 11/14/17 12:29; Start 11/14/17 at 08:45 Linezolid (Zyvox) 600 mg BID PO ; Start 11/14/17 at 21:00; Stop 11/14/17 at 21 :00; Status DC Cefazolin Sodium 1 gm/Dextrose 50 ml @ 100 mls/hr Q8HRS IV ; Start 11/14/17 at 14:00; Stop 11/14/17 at 14:00; Status DC Cefazolin Sodium (Ancef) 1 gm Q8HRS IVP ; Start 11/14/17 at 11:00; Stop at 11:00; Status DC Vancomycin HCl (Vanco Per Pharmacy) 1 each PRN DAILY PRN MC SEE COMMENTS Last administered on 11/14/17 11:21; Start 11/14/17 at 10:45 Ceftriaxone Sodium 2 gm/ Dextrose 100 ml @ 200 mls/hr Q24H IV ; Start at 10:45; Stop 11/14/17 at 10:45; Status DC Ceftriaxone Sodium (Rocephin) 1 gm Q24H IVP ; Start 11/14/17 at 11:00; Status Cancel Ceftriaxone Sodium (Rocephin) 2 gm Q24H IVP Last administered on 11/14/17 14: 21; Start 11/14/17 at 11:00 Vancomycin HCl 750 mg/Sodium Chloride 250 ml @ 250 mls/hr Q24H IV Last administered on 11/14/17 16:53; Start 11/14/17 at 18:00 Vancomycin HCl 1 each 1X ONCE MC ; Start 11/15/17 at 17:30; Stop 11/15/17 at 17:31 Warfarin Sodium (Coumadin - No Dose Today) 1 each 1X WARF ONCE MC ; Start at 16:00; Stop 11/14/17 at 16:01; Status Cancel Metolazone (Zaroxolyn) 5 mg QMWF PO ; Start 11/15/17 at 16:00 Spironolactone (Aldactone) 50 mg DAILY PO Last administered on 11/15/17 08:23 ; Start 11/15/17 at 09:00 Potassium Chloride (Klor-Con) 60 meq BIDWMEALS PO Last administered on 08:25; Start 11/14/17 at 17:00 Methotrexate (Rheumatrex) 17.5 mg QWE PO ; Start 11/20/17 at 16:00 Warfarin Sodium (Coumadin) 3 mg 1X WARF ONCE PO Last administered on 16:45; Start 11/14/17 at 16:00; Stop 11/14/17 at 16:01; Status DC Vitamin A/Vitamin D (Vitamin A & D Ointment) 1 nelli PRN Q1HR PRN TP SKIN PROTECTION Last administered on 11/14/17 16:50; Start 11/14/17 at 14:00 Potassium Chloride 100 ml @ 100 mls/hr Q1H IV ; Start 11/15/17 at 06:00; Stop 11/15/17 at 07:59; Status UNV Potassium Chloride (KCl Oral Soln) 20 meq 1X ONCE PO Last administered on t 06:35; Start 11/15/17 at 06:30; Stop 11/15/17 at 06:31; Status DC Active Scripts Active Keflex (Cephalexin) 250 Mg Capsule 1 Cap PO TID Klor-Con M20 (Potassium Chloride) 20 Meq Tab.er.prt 20 Meq PO DAILYWBKFT Culturelle (Lactobacillus Rhamnosus Gg) 1 Each Cap.sprink 1 Cap PO BID Furosemide 40 Mg Tablet 40 Mg PO DAILY Calcitriol 0.25 Mcg Capsule 0.25 Mcg PO DAILY Aldactone (Spironolactone) 25 Mg Tablet 1 Tab PO DAILY Reported Calcitriol 0.25 Mcg Capsule Metolazone 5 Mg Tablet Methotrexate (Methotrexate Sodium) 2.5 Mg Tablet 7 Tab PO SATURDAY [hydroxyl-chloroquine] 200 Mg PO DAILY08 Calcium + Vitamin D Tablet (Calcium Carbonate/Vitamin D3) 1 Each Tablet 1 Each PO BID Claritin (Loratadine) 10 Mg Tablet 1 Tab PO DAILY PRN Coumadin (Warfarin Sodium) 6 Mg Tablet 6 Mg PO ,,,, Acetaminophen 500 Mg Tablet 1 Tab PO PRN Q6HRS PRN Mucinex Dm Er 600-30 Mg Tablet (Guaifenesin/Dextromethorphan) 1 Each Tab.er.12h 1 Tab PO PRN Q12HRS Trazodone Hcl 50 Mg Tablet 25 Mg PO HS Propafenone Hcl 150 Mg Tablet 150 Mg PO BID Systane 0.3-0.4% Eye Drops (Propylene Glycol/Peg 400/Pf) 1 Each Droperette 1 Each OP DAILY Xanax (Alprazolam) 0.25 Mg Tablet 1 Tab PO PRN TID PRN Biotin 1 Mg Capsule 1,000 Mg PO BID [lutein] 1 Tab BID [Iron ] 1 Tab DAILY Omeprazole 40 Mg Capsule.dr 40 Mg PO DAILY Tramadol Hcl 50 Mg Tablet 50 Mg PO PRN Q6HRS PRN Fish Oil 1,000 Mg Softgel ([place]-3 Fatty Acids/Fish Oil) 1 Each Capsule 1 Each PO DAILY Allopurinol 100 Mg Tablet 100 Mg PO DAILY Paxil (Paroxetine Hcl) 40 Mg Tablet 20 Mg PO DAILY Levothyroxine Sodium 100 Mcg Tablet 100 Mcg PO DAILY Vitals/I & O Vital Sign - Last 24 Hours 12/21/11/14/17 11/14/17 11/14/17 11:00 15:00 16:45 17:45 Temp 97.8 97.9 97.8 97.9 Pulse 65 59 Resp 16 18 18 17 B/P (MAP) 101/56 (71) 109/55 (73) Pulse Ox 98 100 100 O2 Delivery Room Air Room Air Room Air 11/14/17 11/14/17 11/14/17 11/14/17 19:00 20:00 21:41 23:00 Temp 97.9 97.7 97.9 97.7 Pulse 60 60 60 Resp 18 18 B/P (MAP) 99/50 (66) 99/50 95/53 (67) Pulse Ox 97 99 O2 Delivery Room Air Room Air Room Air 11/15/17 11/15/17 11/15/17 11/15/17 03:00 05:46 06:46 07:00 Temp 97.8 97.5 97.8 97.5 Pulse 61 66 Resp 18 20 B/P (MAP) 97/51 (66) 106/54 (71) Pulse Ox 99 99 99 98 O2 Delivery Room Air Room Air Room Air Room Air 11/15/17 11/15/17 08:00 08:23 Pulse 61 B/P (MAP) 97/51 O2 Delivery Room Air Intake and Output 11/14/17 11/14/17 11/15/17 15:00 23:00 07:00 Intake Total 750 ml 0 ml Balance 750 ml 0 ml BRITTA MARTINEZ K III DO Nov 15, 2017 11:04
--- NOTE | 2017-11-15 11:13 | PDOC ---
Infectious Disease Note Subjective Subjective Pt continues to have pain ,redness,swelling of the RLE going upto her thigh no fever or chills felt weak today no n/v/d/abdo pain no new jt pain though has djd ROS ROS as above Vital Sign Vital Signs Vital Signs Date Time Temp Pulse Resp B/P (MAP) Pulse Ox O2 Delivery O2 Flow Rate FiO2 11/15/17 08:23 61 97/51 11/15/17 08:00 Room Air 11/15/17 07:00 97.5 20 98 97.5 Physical Exam PHYSICAL EXAM GENERAL: Alert, oriented x 3, cooperative female in no acute distress, lying comfortably in bed. HEENT: Normocephalic, atraumatic, anicteric. No oral lesions. NECK: Supple. No JVD. LUNGS: Clear bilaterally. HEART: S1, S2. Systolic murmur 2/6. ABDOMEN: Soft, bowel sounds present, nontender, nondistended. No rebound, no guarding. EXTREMITIES: Right leg edema present with diffuse tenderness below the knee and going up to the lower -third of the left thigh, redness, tenderness present. Left leg, trace edema. No tenderness. Bilateral varicosities present. No calf tenderness. Right knee replacement site has skin lesion from an old scar which was from a fall in May of 2017. MUSCULOSKELETAL: No joint effusion or restriction of range of motion. No RT knee effusion or overlying redness. CENTRAL NERVOUS SYSTEM: Grossly nonfocal. Labs Lab Laboratory Tests Test 11/15/17 04:10 11/15/17 10:10 White Blood Count 13.2 x10^3/uL (4.0-11.0) Red Blood Count 3.07 x10^6/uL (3.50-5.40) Hemoglobin 10.2 g/dL (12.0-15.5) Hematocrit 31.1 % (36.0-47.0) Mean Corpuscular Volume 101 fL (79-100) Mean Corpuscular Hemoglobin 33 pg (25-35) Mean Corpuscular Hemoglobin Concent 33 g/dL (31-37) Red Cell Distribution Width 20.0 % (11.5-14.5) Platelet Count 122 x10^3/uL (140-400) Neutrophils (%) (Auto) 94 % (31-73) Lymphocytes (%) (Auto) 5 % (24-48) Monocytes (%) (Auto) 1 % (0-9) Eosinophils (%) (Auto) 0 % (0-3) Basophils (%) (Auto) 0 % (0-3) Neutrophils # (Auto) 12.5 x10^3uL (1.8-7.7) Lymphocytes # (Auto) 0.6 x10^3/uL (1.0-4.8) Monocytes # (Auto) 0.1 x10^3/uL (0.0-1.1) Eosinophils # (Auto) 0.0 x10^3/uL (0.0-0.7) Basophils # (Auto) 0.0 x10^3/uL (0.0-0.2) Prothrombin Time 24.0 SEC (11.7-14.0) Prothromb Time International Ratio 2.3 (0.8-1.1) Sodium Level 139 mmol/L (136-145) 139 mmol/L (136-145) Potassium Level 2.9 mmol/L (3.5-5.1) 4.0 mmol/L (3.5-5.1) Chloride Level 102 mmol/L (98-107) 103 mmol/L (98-107) Carbon Dioxide Level 26 mmol/L (21-32) 27 mmol/L (21-32) Anion Gap 11 (6-14) 9 (6-14) Blood Urea Nitrogen 34 mg/dL (7-20) 34 mg/dL (7-20) Creatinine 1.5 mg/dL (0.6-1.0) 1.5 mg/dL (0.6-1.0) Estimated GFR (Cockcroft-Gault) 33.7 33.7 Glucose Level 77 mg/dL (70-99) 92 mg/dL (70-99) Calcium Level 7.9 mg/dL (8.5-10.1) 7.4 mg/dL (8.5-10.1) Micro pending bc ordered Objective Assessment 1. 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 2. History of rheumatoid arthritis with a second toe surgery. 3. Degenerative joint disease. 4. Lung cancer, status post lobectomy. 5. Left shoulder surgery. 6. Right hip surgery. 7. Gastroesophageal reflux disease. 8. Depression. 9. History of congestive heart failure. 10. History of atrial fibrillation. 11. Anxiety and depression. 12. History of transient ischemic attack. 13. Chronic lymphedema of bilateral lower extremity. 14. Bilateral lower extremity varicosities. Plan Plan of Care RECOMMENDATIONS: 1. DC IV Vanc continue ceftriaxone,add linezolid 2. blood cultures x 2. 3. Elevate lower extremity. 4. Continue local care. 5. Continue probiotics. 6. Follow up cultures and labs in LILA Mclaughlin MD Nov 15, 2017 11:13
[2017-11-15] MEDS: cefTRIAXone IV Push 2 GM VIAL. IVP SCH (11:19)
[2017-11-15] MEDS: VITS A & D/LANOLIN TOPICAL OINTMENT 56GM TUBE. TP PRN ×2 (11:19→20:48)
[2017-11-15] MEDS: ACETAMINOPHEN 325 MG TABLET. PO PRN (11:23)
--- NOTE | 2017-11-15 14:34 | CONS ---
DATE OF CONSULTATION: ATTENDING PHYSICIAN: Dr. Elias. REASON FOR CONSULTATION: Dyspnea. HISTORY OF PRESENT ILLNESS: The patient is a pleasant 77-year-old female who has history of CKD, history of lung cancer. She underwent a left lobectomy in 2007. The patient was hospitalized because of lower extremity cellulitis. She did complain of some mild shortness of breath yesterday and she states that it is a bit better. She is not requiring any oxygen. She has no history of tobacco use. No history of deep vein thrombosis or pulmonary embolism. No chest pain. No cough, fever or chills. Consultation requested for further evaluation and management. PAST MEDICAL HISTORY: Significant for history of AFib, history of CHF, hyperlipidemia, valvular insufficiency, history of TIA, anemia, depression, anxiety, osteoarthritis, gout, rheumatoid arthritis, diabetes and hypothyroidism. PAST SURGICAL HISTORY: Left lobectomy for lung cancer, cholecystectomy and pacemaker. REVIEW OF SYSTEMS: Twelve-point system obtained. Pertinent positives discussed in my history of present illness, otherwise noncontributory. All systems that were negative were reviewed as well. ALLERGIES: ALBUTEROL, CODEINE, DULOXETINE, OXYCODONE AND PREGABALIN. MEDICATIONS: Reviewed as listed in the MRAD. PHYSICAL EXAMINATION: VITAL SIGNS: Stable. Blood pressure 111/63, pulse ox 99% room air, afebrile. HEENT: Sclerae nonicteric. NECK: Supple. LUNGS: Clear. No wheezing. CARDIOVASCULAR: Regular rate and rhythm. ABDOMEN: Soft. EXTREMITIES: With bilateral lower extremity erythema. LABORATORY DATA: Reviewed. White cell count was 24,000, now 13.2, hemoglobin 10.2, and platelets are 122. Her INR is 2.3. BUN 34, creatinine 1.5. IMPRESSION: 1. Subjective dyspnea. Clinically, she appears to be doing well. There is no infiltrate seen on the chest x-ray. The patient is already on anticoagulation and clinically, I do not suspect thromboembolic disease in the setting of a therapeutic INR. At this point, I do not see any further workup and we will monitor clinically. 2. 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 Chest x-ray is clear. 3. Lower extremity cellulitis. Venous Dopplers showing no evidence of deep venous thrombosis. RECOMMENDATIONS: 1. Monitor respiratory status closely. 2. Continue anticoagulation per PCP. 3. Antibiotic per Infectious Disease. 4. PRN bronchodilators. 5. No further pulmonary workup at this point. GUNNAR RAND MD DR: PEÑA/yo JOB#: [id number] / [id number]
--- NOTE | 2017-11-15 14:38 | PDOC2 ---
CONSULT Date of Consult Date of Consult DATE: 11/15/17 TIME: 14:31 Reason for Consult Reason for Consult: CKDIII Referring Physician Referring Physician: Dr Elias Identification/Chief Complaint Chief Complaint Lower ext cellulitis Problems: Source Source: Chart review, Patient History of Present Illness Reason for Visit: as dictated Past Medical History Cardiovascular: AFIB, CHF, HTN, Hyperlipidemia, Valve insufficiency, Pulmonary hypertension Pulmonary: Previously Intubated CENTRAL NERVOUS SYSTEM: TIA GI: Constipation, GERD Heme/Onc: Anemia NOS, Cancer Psych: Anxiety, Depression Musculoskeletal: Osteoarthritis, Stiffness Rheumatologic: Gout, Rheumatoid arthritis Endocrine: Diabetes, Hypothyroidism Past Surgical History Past Surgical History: Pacemaker, Cholecystectomy, Other Family History Family History: No Significant, Cancer Social History No ALCOHOL: none Drugs: None Lives: with Family Current Problem List Problem List Problems Medical Problems: (1) Cellulitis of right lower extremity Status: Acute (2) Cellulitis of right lower extremity without foot Status: Acute Current Medications Current Medications Current Medications Aspirin (Children'S Aspirin) 324 mg 1X ONCE PO ; Start 11/13/17 at 17:15; Stop 11/13/17 at 17:16; Status DC Vancomycin HCl (Vanco Per Pharmacy) 1 each PRN DAILY PRN MC SEE COMMENTS Last administered on 11/13/17 18:43; Start 11/13/17 at 17:15; Stop 11/14/17 at 10 :28; Status DC Ondansetron HCl (Zofran) 4 mg PRN Q8HRS PRN IV NAUSEA/VOMITING; Start at 17:15; Stop 11/14/17 at 08:38; Status DC Sodium Chloride 1,000 ml @ 100 mls/hr Q10H IV Last administered on 11/14/17 03:13; Start 11/13/17 at 17:13; Stop 11/14/17 at 17:12; Status DC Vancomycin HCl 1.25 gm/Sodium Chloride 250 ml @ 166.667 mls/hr 1X ONCE IV Last administered on 11/13/17 18:00; Start 11/13/17 at 18:00; Stop 11/13/17 at 19:29; Status DC Acetaminophen (Tylenol) 650 mg 1X ONCE PO Last administered on 11/13/17 18: 40; Start 11/13/17 at 18:15; Stop 11/13/17 at 18:16; Status DC Vancomycin HCl 750 mg/Sodium Chloride 250 ml @ 250 mls/hr Q24H IV ; Start at 18:00; Stop 11/14/17 at 18:00; Status DC Vancomycin HCl 1 each 1X ONCE MC ; Start 11/15/17 at 17:30; Stop 11/15/17 at 17:30; Status DC Acetaminophen (Tylenol) 500 mg PRN Q6HRS PRN PO MILD PAIN / TEMP Last administered on 11/14/17 21:39; Start 11/13/17 at 23:15 Alprazolam (Xanax) 0.25 mg PRN TID PRN PO ANXIETY / AGITATION Last administered on 11/15/17 06:40; Start 11/13/17 at 23:15 Tramadol HCl (Ultram) 50 mg PRN Q6HRS PRN PO MODERATE PAIN Last administered on 11/14/17 09:22; Start 11/13/17 at 23:15; Stop 11/14/17 at 10:09; Status DC Trazodone HCl (Desyrel) 25 mg HS PO Last administered on 11/14/17 21:40; Start 11/13/17 at 23:30 Lactobacillus Rhamnosus (Culturelle) 1 cap BID PO ; Start 11/14/17 at 09:00; Stop 11/14/17 at 10:32; Status DC Ondansetron HCl (Zofran) 4 mg PRN Q6HRS PRN IV NAUSEA/VOMITING; Start at 08:45; Stop 11/15/17 at 08:44; Status DC Acetaminophen (Tylenol) 650 mg PRN Q6HRS PRN PO pain Last administered on 11/15 11:23; Start 11/14/17 at 08:45 Allopurinol (Zyloprim) 100 mg DAILY PO Last administered on 11/15/17 08:24; Start 11/14/17 at 09:00 Calcitriol (Rocaltrol) 0.25 mcg DAILY PO Last administered on 11/15/17 08:22 ; Start 11/14/17 at 09:00 Furosemide (Lasix) 40 mg DAILY PO Last administered on 11/15/17 08:24; Start 11/14/17 at 09:00 Guaifenesin (MUCINEX ER with DM) 1 tab PRN Q12HRS PRN PO COUGH; Start at 08:45 Lactobacillus Rhamnosus (Culturelle) 1 cap BID PO Last administered on 08:24; Start 11/14/17 at 09:00 Levothyroxine Sodium (Synthroid) 100 mcg DAILY07 PO Last administered on 08:24; Start 11/14/17 at 10:30 Potassium Chloride (Klor-Con) 20 meq DAILYWBKFT PO Last administered on 09:23; Start 11/14/17 at 08:00; Stop 11/14/17 at 11:52; Status DC Propafenone HCl (Rythmol) 150 mg BID PO Last administered on 11/15/17 08:23; Start 11/14/17 at 09:00 Spironolactone (Aldactone) 25 mg DAILY PO Last administered on 11/14/17 09:23 ; Start 11/14/17 at 09:00; Stop 11/14/17 at 11:51; Status DC Non-Formulary Medication 1,000 mg BID PO ; Start 11/14/17 at 09:00; Status UNV Calcium/Vitamin D (Oscal D 500mg/ 200uts) 1 tab BIDWMEALS PO Last administered on 11/15/17 08:25; Start 11/14/17 at 09:00 Cetirizine HCl (ZyrTEC) 10 mg DAILY PO Last administered on 11/14/17 12:13; Start 11/14/17 at 10:00 Fish Oil (Fish Oil) 1,000 mg DAILY PO Last administered on 11/15/17 08:24; Start 11/14/17 at 10:00 Pantoprazole Sodium (Protonix) 40 mg DAILYAC PO Last administered on 08:25; Start 11/14/17 at 11:30 Paroxetine HCl (Paxil) 20 mg DAILY PO Last administered on 11/15/17 08:25; Start 11/14/17 at 11:00 Artificial Tears (Artificial Tears) 1 drop DAILY OU Last administered on 08:25; Start 11/14/17 at 10:30 Hydroxychloroquine Sulfate (Plaquenil) 200 mg DAILY08 PO Last administered on 11/15/17 08:25; Start 11/14/17 at 11:00 Ferrous Sulfate (Feosol) 325 mg DAILYWBKFT PO Last administered on 11/15/17 08:25; Start 11/14/17 at 12:00 Metolazone (Zaroxolyn) 5 mg DAILY PO Last administered on 11/14/17 09:24; Start 11/14/17 at 09:00; Stop 11/14/17 at 11:47; Status DC Tramadol HCl (Ultram) 50 mg PRN Q6HRS PRN PO PAIN Last administered on 05:46; Start 11/14/17 at 08:45 Warfarin Sodium (Coumadin Per Pharmacy) 1 each PRN DAILY PRN MC SEE COMMENTS Last administered on 11/14/17 12:29; Start 11/14/17 at 08:45 Linezolid (Zyvox) 600 mg BID PO ; Start 11/14/17 at 21:00; Stop 11/14/17 at 21 :00; Status DC Cefazolin Sodium 1 gm/Dextrose 50 ml @ 100 mls/hr Q8HRS IV ; Start 11/14/17 at 14:00; Stop 11/14/17 at 14:00; Status DC Cefazolin Sodium (Ancef) 1 gm Q8HRS IVP ; Start 11/14/17 at 11:00; Stop at 11:00; Status DC Vancomycin HCl (Vanco Per Pharmacy) 1 each PRN DAILY PRN MC SEE COMMENTS Last administered on 11/14/17 11:21; Start 11/14/17 at 10:45; Stop 11/15/17 at 13 :47; Status DC Ceftriaxone Sodium 2 gm/ Dextrose 100 ml @ 200 mls/hr Q24H IV ; Start at 10:45; Stop 11/14/17 at 10:45; Status DC Ceftriaxone Sodium (Rocephin) 1 gm Q24H IVP ; Start 11/14/17 at 11:00; Status Cancel Ceftriaxone Sodium (Rocephin) 2 gm Q24H IVP Last administered on 11/15/17 11: 19; Start 11/14/17 at 11:00 Vancomycin HCl 750 mg/Sodium Chloride 250 ml @ 250 mls/hr Q24H IV Last administered on 11/14/17 16:53; Start 11/14/17 at 18:00; Stop 11/15/17 at 13 :44; Status DC Vancomycin HCl 1 each 1X ONCE MC ; Start 11/15/17 at 17:30; Stop 11/15/17 at 17:30; Status DC Warfarin Sodium (Coumadin - No Dose Today) 1 each 1X WARF ONCE MC ; Start at 16:00; Stop 11/14/17 at 16:01; Status Cancel Metolazone (Zaroxolyn) 5 mg QMWF PO ; Start 11/15/17 at 16:00 Spironolactone (Aldactone) 50 mg DAILY PO Last administered on 11/15/17 08:23 ; Start 11/15/17 at 09:00 Potassium Chloride (Klor-Con) 60 meq BIDWMEALS PO Last administered on 08:25; Start 11/14/17 at 17:00 Methotrexate (Rheumatrex) 17.5 mg QWE PO ; Start 11/20/17 at 16:00 Warfarin Sodium (Coumadin) 3 mg 1X WARF ONCE PO Last administered on 16:45; Start 11/14/17 at 16:00; Stop 11/14/17 at 16:01; Status DC Vitamin A/Vitamin D (Vitamin A & D Ointment) 1 nelli PRN Q1HR PRN TP SKIN PROTECTION Last administered on 11/15/17 11:19; Start 11/14/17 at 14:00 Potassium Chloride 100 ml @ 100 mls/hr Q1H IV ; Start 11/15/17 at 06:00; Stop 11/15/17 at 07:59; Status UNV Potassium Chloride (KCl Oral Soln) 20 meq 1X ONCE PO Last administered on 06:35; Start 11/15/17 at 06:30; Stop 11/15/17 at 06:31; Status DC Linezolid (Zyvox) 600 mg BID PO ; Start 11/15/17 at 14:00 Active Scripts Active Keflex (Cephalexin) 250 Mg Capsule 1 Cap PO TID Klor-Con M20 (Potassium Chloride) 20 Meq Tab.er.prt 20 Meq PO DAILYWBKFT Culturelle (Lactobacillus Rhamnosus Gg) 1 Each Cap.sprink 1 Cap PO BID Furosemide 40 Mg Tablet 40 Mg PO DAILY Calcitriol 0.25 Mcg Capsule 0.25 Mcg PO DAILY Aldactone (Spironolactone) 25 Mg Tablet 1 Tab PO DAILY Reported Calcitriol 0.25 Mcg Capsule Metolazone 5 Mg Tablet Methotrexate (Methotrexate Sodium) 2.5 Mg Tablet 7 Tab PO SATURDAY [hydroxyl-chloroquine] 200 Mg PO DAILY08 Calcium + Vitamin D Tablet (Calcium Carbonate/Vitamin D3) 1 Each Tablet 1 Each PO BID Claritin (Loratadine) 10 Mg Tablet 1 Tab PO DAILY PRN Coumadin (Warfarin Sodium) 6 Mg Tablet 6 Mg PO ,,,,DUNCAN Acetaminophen 500 Mg Tablet 1 Tab PO PRN Q6HRS PRN Mucinex Dm Er 600-30 Mg Tablet (Guaifenesin/Dextromethorphan) 1 Each Tab.er.12h 1 Tab PO PRN Q12HRS Trazodone Hcl 50 Mg Tablet 25 Mg PO HS Propafenone Hcl 150 Mg Tablet 150 Mg PO BID Systane 0.3-0.4% Eye Drops (Propylene Glycol/Peg 400/Pf) 1 Each Droperette 1 Each OP DAILY Xanax (Alprazolam) 0.25 Mg Tablet 1 Tab PO PRN TID PRN Biotin 1 Mg Capsule 1,000 Mg PO BID [lutein] 1 Tab BID [Iron ] 1 Tab DAILY Omeprazole 40 Mg Capsule.dr 40 Mg PO DAILY Tramadol Hcl 50 Mg Tablet 50 Mg PO PRN Q6HRS PRN Fish Oil 1,000 Mg Softgel ([place]-3 Fatty Acids/Fish Oil) 1 Each Capsule 1 Each PO DAILY Allopurinol 100 Mg Tablet 100 Mg PO DAILY Paxil (Paroxetine Hcl) 40 Mg Tablet 20 Mg PO DAILY Levothyroxine Sodium 100 Mcg Tablet 100 Mcg PO DAILY Allergies Allergies: Coded Allergies: albuterol (Verified Allergy, Severe, "CAN'T BREATHE", 11/14/17) adhesive (Verified Allergy, Intermediate, "Breaks out", 04/02/16) Pt states, "tape and band-aids." codeine (Verified Allergy, Intermediate, "Breaks out.", 04/02/16) oxycodone (Verified Allergy, Intermediate, Rash, 04/02/16) duloxetine (Verified Adverse Reaction, Intermediate, edema, 04/02/16) pregabalin (Verified Adverse Reaction, Intermediate, edema, 04/02/16) ROS Review of System GEN: no Fevers no Chills EYES: no Visual Complaints ENT: no EN Drainage no Hearing deficiets CVS: no Orthopnea no CP RESP: no SOB no WALDROP GI: no Nausea no Vomiting : no Dysuria no Urgency HEME: no easy bruising no Palp Ly Nodes NEURO no Focal Weakness no Sz PSYCH: no Suicidal Ideation no Depression SKIN: + Rashes Cellulitis ENDO: no Polyuria or Polydipsia no Hot/Cold Intolerance MU SK: occ Arthraigia no Myalgia Physical Exam Physical Exam General Appearance: Awake Alert Oriented x 3 In no Distress; thin WF Eyes: VIsion Unchanged Conjunctiva Normal EN: No EN Drainage Mucous Memb. moist Neck: no JVD min JVP Supple no Thyromegaly CVS: S1 S2 + Murmur No Gallop No Rub no Edema Resp: no Rales no Rhonchi no Acc. Muscle use GI: BAS +ve NO Bruit Non Tender Non Distended : no CVA tenderness; no Suprapubic Tenderness SKIN: + Clullitic Rash Rt Lower ext Breast Exam deferred Mu.Sk: Adequate ROM no Muscle Atrophy Heme: Unable to palpate Obvious LAD no Splenomegaly NEURO: Good Strength and Tone Cranial Nerves II - XII grossly intact Psych: not Depressed no Active hallucination Vital Signs Vital Signs Date Time Temp Pulse Resp B/P (MAP) Pulse Ox O2 Delivery O2 Flow Rate FiO2 11/15/17 11:00 95.5 72 20 111/63 (79) 99 Room Air 95.5 Assessment & Plan CKD III - HTNIsve / NS: stable creat due to ongoing issues with VHDz and tendency to edema Rt Lower ext Cellulitis - Feeble pulses on my eval - If ANgio is felt necessary - she may benefit from Holding Diuretics and use of IVF for pre-hyrdation. Anemia: check IRone; mayneed Epogen if hgb < 10; some due to recent hosp stay. HTN by hx; Currently BP lowish : Current BP meds reviewed. no changes forn ow Discussed Plan of Care and prognosis etc. at length with pt and RN Labs Labs Laboratory Tests Test 11/13/17 15:50 11/13/17 18:21 11/13/17 23:05 11/14/17 05:00 White Blood Count 24.3 x10^3/uL (4.0-11.0) 18.1 x10^3/uL (4.0-11.0) Red Blood Count 3.73 x10^6/uL (3.50-5.40) 3.09 x10^6/uL (3.50-5.40) Hemoglobin 12.2 g/dL (12.0-15.5) 10.2 g/dL (12.0-15.5) Hematocrit 37.8 % (36.0-47.0) 31.1 % (36.0-47.0) Mean Corpuscular Volume 101 fL (79-100) 101 fL (79-100) Mean Corpuscular Hemoglobin 33 pg (25-35) 33 pg (25-35) Mean Corpuscular Hemoglobin Concent 32 g/dL (31-37) 33 g/dL (31-37) Red Cell Distribution Width 20.0 % (11.5-14.5) 20.0 % (11.5-14.5) Platelet Count 179 x10^3/uL (140-400) 131 x10^3/uL (140-400) Neutrophils (%) (Auto) 95 % (31-73) 94 % (31-73) Lymphocytes (%) (Auto) 2 % (24-48) 3 % (24-48) Monocytes (%) (Auto) 3 % (0-9) 2 % (0-9) Eosinophils (%) (Auto) 0 % (0-3) 0 % (0-3) Basophils (%) (Auto) 0 % (0-3) 0 % (0-3) Neutrophils # (Auto) 23.1 x10^3uL (1.8-7.7) 17.0 x10^3uL (1.8-7.7) Lymphocytes # (Auto) 0.4 x10^3/uL (1.0-4.8) 0.6 x10^3/uL (1.0-4.8) Monocytes # (Auto) 0.7 x10^3/uL (0.0-1.1) 0.4 x10^3/uL (0.0-1.1) Eosinophils # (Auto) 0.0 x10^3/uL (0.0-0.7) 0.0 x10^3/uL (0.0-0.7) Basophils # (Auto) 0.0 x10^3/uL (0.0-0.2) 0.0 x10^3/uL (0.0-0.2) Segmented Neutrophils % 78 % (35-66) Band Neutrophils % 18 % (0-9) Lymphocytes % 3 % (24-48) Monocytes % 1 % (0-10) Platelet Estimate Adequate (ADEQUATE) Polychromasia Slight Anisocytosis Slight Macrocytosis Slight Prothrombin Time 30.9 SEC (11.7-14.0) Prothromb Time International Ratio 3.2 (0.8-1.1) Activated Partial Thromboplast Time 42 SEC (24-38) Sodium Level 135 mmol/L (136-145) 139 mmol/L (136-145) Potassium Level 4.5 mmol/L (3.5-5.1) 3.6 mmol/L (3.5-5.1) Chloride Level 95 mmol/L (98-107) 101 mmol/L (98-107) Carbon Dioxide Level 29 mmol/L (21-32) 28 mmol/L (21-32) Anion Gap 11 (6-14) 10 (6-14) Blood Urea Nitrogen 33 mg/dL (7-20) 28 mg/dL (7-20) Creatinine 1.3 mg/dL (0.6-1.0) 1.2 mg/dL (0.6-1.0) Estimated GFR (Cockcroft-Gault) 39.7 43.6 Glucose Level 119 mg/dL (70-99) 80 mg/dL (70-99) Calcium Level 8.9 mg/dL (8.5-10.1) 8.0 mg/dL (8.5-10.1) Troponin I Quantitative 0.081 ng/mL (0.000-0.055) 0.080 ng/mL (0.000-0.055) 0.078 ng/mL (0.000-0.055) Urine Collection Type Unknown Urine Color Yellow Urine Clarity Clear Urine pH 7.0 Urine Specific [place] 1.010 Urine Protein Negative mg/dL (NEG-TRACE) Urine Glucose (UA) Negative mg/dL (NEG) Urine Ketones (Stick) Negative mg/dL (NEG) Urine Blood Negative (NEG) Urine Nitrite Negative (NEG) Urine Bilirubin Negative (NEG) Urine Urobilinogen Dipstick 1.0 mg/dL (0.2 mg/dL) Urine Leukocyte Esterase Negative (NEG) Urine RBC 1-2 /HPF (0-2) Urine WBC 1-4 /HPF (0-4) Urine Squamous Epithelial Cells Few /LPF Urine Bacteria 0 /HPF (0-FEW) Urine Hyaline Casts Few /HPF Urine Mucus Slight /LPF Erythrocyte Sedimentation Rate 23 (0-25) Test 11/14/17 10:45 11/15/17 04:10 11/15/17 10:10 Prothrombin Time 27.0 SEC (11.7-14.0) 24.0 SEC (11.7-14.0) Prothromb Time International Ratio 2.7 (0.8-1.1) 2.3 (0.8-1.1) White Blood Count 13.2 x10^3/uL (4.0-11.0) Red Blood Count 3.07 x10^6/uL (3.50-5.40) Hemoglobin 10.2 g/dL (12.0-15.5) Hematocrit 31.1 % (36.0-47.0) Mean Corpuscular Volume 101 fL (79-100) Mean Corpuscular Hemoglobin 33 pg (25-35) Mean Corpuscular Hemoglobin Concent 33 g/dL (31-37) Red Cell Distribution Width 20.0 % (11.5-14.5) Platelet Count 122 x10^3/uL (140-400) Neutrophils (%) (Auto) 94 % (31-73) Lymphocytes (%) (Auto) 5 % (24-48) Monocytes (%) (Auto) 1 % (0-9) Eosinophils (%) (Auto) 0 % (0-3) Basophils (%) (Auto) 0 % (0-3) Neutrophils # (Auto) 12.5 x10^3uL (1.8-7.7) Lymphocytes # (Auto) 0.6 x10^3/uL (1.0-4.8) Monocytes # (Auto) 0.1 x10^3/uL (0.0-1.1) Eosinophils # (Auto) 0.0 x10^3/uL (0.0-0.7) Basophils # (Auto) 0.0 x10^3/uL (0.0-0.2) Sodium Level 139 mmol/L (136-145) 139 mmol/L (136-145) Potassium Level 2.9 mmol/L (3.5-5.1) 4.0 mmol/L (3.5-5.1) Chloride Level 102 mmol/L (98-107) 103 mmol/L (98-107) Carbon Dioxide Level 26 mmol/L (21-32) 27 mmol/L (21-32) Anion Gap 11 (6-14) 9 (6-14) Blood Urea Nitrogen 34 mg/dL (7-20) 34 mg/dL (7-20) Creatinine 1.5 mg/dL (0.6-1.0) 1.5 mg/dL (0.6-1.0) Estimated GFR (Cockcroft-Gault) 33.7 33.7 Glucose Level 77 mg/dL (70-99) 92 mg/dL (70-99) Calcium Level 7.9 mg/dL (8.5-10.1) 7.4 mg/dL (8.5-10.1) Laboratory Tests Test 11/15/17 04:10 11/15/17 10:10 White Blood Count 13.2 x10^3/uL (4.0-11.0) Red Blood Count 3.07 x10^6/uL (3.50-5.40) Hemoglobin 10.2 g/dL (12.0-15.5) Hematocrit 31.1 % (36.0-47.0) Mean Corpuscular Volume 101 fL (79-100) Mean Corpuscular Hemoglobin 33 pg (25-35) Mean Corpuscular Hemoglobin Concent 33 g/dL (31-37) Red Cell Distribution Width 20.0 % (11.5-14.5) Platelet Count 122 x10^3/uL (140-400) Neutrophils (%) (Auto) 94 % (31-73) Lymphocytes (%) (Auto) 5 % (24-48) Monocytes (%) (Auto) 1 % (0-9) Eosinophils (%) (Auto) 0 % (0-3) Basophils (%) (Auto) 0 % (0-3) Neutrophils # (Auto) 12.5 x10^3uL (1.8-7.7) Lymphocytes # (Auto) 0.6 x10^3/uL (1.0-4.8) Monocytes # (Auto) 0.1 x10^3/uL (0.0-1.1) Eosinophils # (Auto) 0.0 x10^3/uL (0.0-0.7) Basophils # (Auto) 0.0 x10^3/uL (0.0-0.2) Prothrombin Time 24.0 SEC (11.7-14.0) Prothromb Time International Ratio 2.3 (0.8-1.1) Sodium Level 139 mmol/L (136-145) 139 mmol/L (136-145) Potassium Level 2.9 mmol/L (3.5-5.1) 4.0 mmol/L (3.5-5.1) Chloride Level 102 mmol/L (98-107) 103 mmol/L (98-107) Carbon Dioxide Level 26 mmol/L (21-32) 27 mmol/L (21-32) Anion Gap 11 (6-14) 9 (6-14) Blood Urea Nitrogen 34 mg/dL (7-20) 34 mg/dL (7-20) Creatinine 1.5 mg/dL (0.6-1.0) 1.5 mg/dL (0.6-1.0) Estimated GFR (Cockcroft-Gault) 33.7 33.7 Glucose Level 77 mg/dL (70-99) 92 mg/dL (70-99) Calcium Level 7.9 mg/dL (8.5-10.1) 7.4 mg/dL (8.5-10.1) Images Images Renal US / duplex: Jul 2017 The right kidney measures approximately 10 cm in length and the left 9.3. No hydronephrosis or mass is seen associated with either kidney. The measured peak velocities in the main renal arteries bilaterally are normal. The ratio values, relative to the aorta, are also normal. Measured resistive indices are normal. The abdominal aorta appeared unremarkable. The renal veins were patent. IMPRESSION: Normal morphologic appearance of the kidneys. No evidence of hemodynamically significant stenosis involving either main renal artery MANISH YUSUF MD Nov 15, 2017 14:38
[2017-11-15 15:00] VITALS: BP 92/46
[2017-11-15 15:40] LABS: % SAT IRON 21 % (15-34); IRON,SERUM 48 ug/dL (50-170)
--- NOTE | 2017-11-15 15:43 | PDOC ---
PROGRESS NOTES Subjective Subjective Complains of leg discomfort No cardiac complaints Objective Objective Vital Signs Date Time Temp Pulse Resp B/P (MAP) Pulse Ox O2 Delivery O2 Flow Rate FiO2 11/15/17 15:00 98.1 61 20 92/46 (61) 98 Room Air 98.1 Intake and Output 11/15/17 07:00 Intake Total 750 ml Balance 750 ml Intake Oral 500 ml IV Total 250 ml # Voids 8 Physical Exam Physical Exam No changes in cardiac exam Assessment Assessment Pt compensated cardiac thomson. Agree with present plan. Problems Medical Problems: (1) Cellulitis of right lower extremity Status: Acute (2) Cellulitis of right lower extremity without foot Status: Acute Comment Review of Relevant I have reviewed the following items leila (where applicable) has been applied. Labs Laboratory Tests Test 11/13/17 15:50 11/13/17 18:21 11/13/17 23:05 11/14/17 05:00 White Blood Count 24.3 x10^3/uL (4.0-11.0) 18.1 x10^3/uL (4.0-11.0) Red Blood Count 3.73 x10^6/uL (3.50-5.40) 3.09 x10^6/uL (3.50-5.40) Hemoglobin 12.2 g/dL (12.0-15.5) 10.2 g/dL (12.0-15.5) Hematocrit 37.8 % (36.0-47.0) 31.1 % (36.0-47.0) Mean Corpuscular Volume 101 fL (79-100) 101 fL (79-100) Mean Corpuscular Hemoglobin 33 pg (25-35) 33 pg (25-35) Mean Corpuscular Hemoglobin Concent 32 g/dL (31-37) 33 g/dL (31-37) Red Cell Distribution Width 20.0 % (11.5-14.5) 20.0 % (11.5-14.5) Platelet Count 179 x10^3/uL (140-400) 131 x10^3/uL (140-400) Neutrophils (%) (Auto) 95 % (31-73) 94 % (31-73) Lymphocytes (%) (Auto) 2 % (24-48) 3 % (24-48) Monocytes (%) (Auto) 3 % (0-9) 2 % (0-9) Eosinophils (%) (Auto) 0 % (0-3) 0 % (0-3) Basophils (%) (Auto) 0 % (0-3) 0 % (0-3) Neutrophils # (Auto) 23.1 x10^3uL (1.8-7.7) 17.0 x10^3uL (1.8-7.7) Lymphocytes # (Auto) 0.4 x10^3/uL (1.0-4.8) 0.6 x10^3/uL (1.0-4.8) Monocytes # (Auto) 0.7 x10^3/uL (0.0-1.1) 0.4 x10^3/uL (0.0-1.1) Eosinophils # (Auto) 0.0 x10^3/uL (0.0-0.7) 0.0 x10^3/uL (0.0-0.7) Basophils # (Auto) 0.0 x10^3/uL (0.0-0.2) 0.0 x10^3/uL (0.0-0.2) Segmented Neutrophils % 78 % (35-66) Band Neutrophils % 18 % (0-9) Lymphocytes % 3 % (24-48) Monocytes % 1 % (0-10) Platelet Estimate Adequate (ADEQUATE) Polychromasia Slight Anisocytosis Slight Macrocytosis Slight Prothrombin Time 30.9 SEC (11.7-14.0) Prothromb Time International Ratio 3.2 (0.8-1.1) Activated Partial Thromboplast Time 42 SEC (24-38) Sodium Level 135 mmol/L (136-145) 139 mmol/L (136-145) Potassium Level 4.5 mmol/L (3.5-5.1) 3.6 mmol/L (3.5-5.1) Chloride Level 95 mmol/L (98-107) 101 mmol/L (98-107) Carbon Dioxide Level 29 mmol/L (21-32) 28 mmol/L (21-32) Anion Gap 11 (6-14) 10 (6-14) Blood Urea Nitrogen 33 mg/dL (7-20) 28 mg/dL (7-20) Creatinine 1.3 mg/dL (0.6-1.0) 1.2 mg/dL (0.6-1.0) Estimated GFR (Cockcroft-Gault) 39.7 43.6 Glucose Level 119 mg/dL (70-99) 80 mg/dL (70-99) Calcium Level 8.9 mg/dL (8.5-10.1) 8.0 mg/dL (8.5-10.1) Troponin I Quantitative 0.081 ng/mL (0.000-0.055) 0.080 ng/mL (0.000-0.055) 0.078 ng/mL (0.000-0.055) Urine Collection Type Unknown Urine Color Yellow Urine Clarity Clear Urine pH 7.0 Urine Specific [place] 1.010 Urine Protein Negative mg/dL (NEG-TRACE) Urine Glucose (UA) Negative mg/dL (NEG) Urine Ketones (Stick) Negative mg/dL (NEG) Urine Blood Negative (NEG) Urine Nitrite Negative (NEG) Urine Bilirubin Negative (NEG) Urine Urobilinogen Dipstick 1.0 mg/dL (0.2 mg/dL) Urine Leukocyte Esterase Negative (NEG) Urine RBC 1-2 /HPF (0-2) Urine WBC 1-4 /HPF (0-4) Urine Squamous Epithelial Cells Few /LPF Urine Bacteria 0 /HPF (0-FEW) Urine Hyaline Casts Few /HPF Urine Mucus Slight /LPF Erythrocyte Sedimentation Rate 23 (0-25) Test 11/14/17 10:45 11/15/17 04:10 11/15/17 10:10 11/15/17 15:10 Prothrombin Time 27.0 SEC (11.7-14.0) 24.0 SEC (11.7-14.0) Prothromb Time International Ratio 2.7 (0.8-1.1) 2.3 (0.8-1.1) White Blood Count 13.2 x10^3/uL (4.0-11.0) Red Blood Count 3.07 x10^6/uL (3.50-5.40) Hemoglobin 10.2 g/dL (12.0-15.5) Hematocrit 31.1 % (36.0-47.0) Mean Corpuscular Volume 101 fL (79-100) Mean Corpuscular Hemoglobin 33 pg (25-35) Mean Corpuscular Hemoglobin Concent 33 g/dL (31-37) Red Cell Distribution Width 20.0 % (11.5-14.5) Platelet Count 122 x10^3/uL (140-400) Neutrophils (%) (Auto) 94 % (31-73) Lymphocytes (%) (Auto) 5 % (24-48) Monocytes (%) (Auto) 1 % (0-9) Eosinophils (%) (Auto) 0 % (0-3) Basophils (%) (Auto) 0 % (0-3) Neutrophils # (Auto) 12.5 x10^3uL (1.8-7.7) Lymphocytes # (Auto) 0.6 x10^3/uL (1.0-4.8) Monocytes # (Auto) 0.1 x10^3/uL (0.0-1.1) Eosinophils # (Auto) 0.0 x10^3/uL (0.0-0.7) Basophils # (Auto) 0.0 x10^3/uL (0.0-0.2) Sodium Level 139 mmol/L (136-145) 139 mmol/L (136-145) Potassium Level 2.9 mmol/L (3.5-5.1) 4.0 mmol/L (3.5-5.1) Chloride Level 102 mmol/L (98-107) 103 mmol/L (98-107) Carbon Dioxide Level 26 mmol/L (21-32) 27 mmol/L (21-32) Anion Gap 11 (6-14) 9 (6-14) Blood Urea Nitrogen 34 mg/dL (7-20) 34 mg/dL (7-20) Creatinine 1.5 mg/dL (0.6-1.0) 1.5 mg/dL (0.6-1.0) Estimated GFR (Cockcroft-Gault) 33.7 33.7 Glucose Level 77 mg/dL (70-99) 92 mg/dL (70-99) Calcium Level 7.9 mg/dL (8.5-10.1) 7.4 mg/dL (8.5-10.1) Iron Level 48 ug/dL (50-170) Total Iron Binding Capacity 233 ug/dL (250-450) Iron Saturation 21 % (15-34) Laboratory Tests Test 11/15/17 04:10 11/15/17 10:10 11/15/17 15:10 White Blood Count 13.2 x10^3/uL (4.0-11.0) Red Blood Count 3.07 x10^6/uL (3.50-5.40) Hemoglobin 10.2 g/dL (12.0-15.5) Hematocrit 31.1 % (36.0-47.0) Mean Corpuscular Volume 101 fL (79-100) Mean Corpuscular Hemoglobin 33 pg (25-35) Mean Corpuscular Hemoglobin Concent 33 g/dL (31-37) Red Cell Distribution Width 20.0 % (11.5-14.5) Platelet Count 122 x10^3/uL (140-400) Neutrophils (%) (Auto) 94 % (31-73) Lymphocytes (%) (Auto) 5 % (24-48) Monocytes (%) (Auto) 1 % (0-9) Eosinophils (%) (Auto) 0 % (0-3) Basophils (%) (Auto) 0 % (0-3) Neutrophils # (Auto) 12.5 x10^3uL (1.8-7.7) Lymphocytes # (Auto) 0.6 x10^3/uL (1.0-4.8) Monocytes # (Auto) 0.1 x10^3/uL (0.0-1.1) Eosinophils # (Auto) 0.0 x10^3/uL (0.0-0.7) Basophils # (Auto) 0.0 x10^3/uL (0.0-0.2) Prothrombin Time 24.0 SEC (11.7-14.0) Prothromb Time International Ratio 2.3 (0.8-1.1) Sodium Level 139 mmol/L (136-145) 139 mmol/L (136-145) Potassium Level 2.9 mmol/L (3.5-5.1) 4.0 mmol/L (3.5-5.1) Chloride Level 102 mmol/L (98-107) 103 mmol/L (98-107) Carbon Dioxide Level 26 mmol/L (21-32) 27 mmol/L (21-32) Anion Gap 11 (6-14) 9 (6-14) Blood Urea Nitrogen 34 mg/dL (7-20) 34 mg/dL (7-20) Creatinine 1.5 mg/dL (0.6-1.0) 1.5 mg/dL (0.6-1.0) Estimated GFR (Cockcroft-Gault) 33.7 33.7 Glucose Level 77 mg/dL (70-99) 92 mg/dL (70-99) Calcium Level 7.9 mg/dL (8.5-10.1) 7.4 mg/dL (8.5-10.1) Iron Level 48 ug/dL (50-170) Total Iron Binding Capacity 233 ug/dL (250-450) Iron Saturation 21 % (15-34) Medications Current Medications Aspirin (Children'S Aspirin) 324 mg 1X ONCE PO ; Start 11/13/17 at 17:15; Stop 11/13/17 at 17:16; Status DC Vancomycin HCl (Vanco Per Pharmacy) 1 each PRN DAILY PRN MC SEE COMMENTS Last administered on 11/13/17 18:43; Start 11/13/17 at 17:15; Stop 11/14/17 at 10 :28; Status DC Ondansetron HCl (Zofran) 4 mg PRN Q8HRS PRN IV NAUSEA/VOMITING; Start at 17:15; Stop 11/14/17 at 08:38; Status DC Sodium Chloride 1,000 ml @ 100 mls/hr Q10H IV Last administered on 11/14/17 03:13; Start 11/13/17 at 17:13; Stop 11/14/17 at 17:12; Status DC Vancomycin HCl 1.25 gm/Sodium Chloride 250 ml @ 166.667 mls/hr 1X ONCE IV Last administered on 11/13/17 18:00; Start 11/13/17 at 18:00; Stop 11/13/17 at 19:29; Status DC Acetaminophen (Tylenol) 650 mg 1X ONCE PO Last administered on 11/13/17 18: 40; Start 11/13/17 at 18:15; Stop 11/13/17 at 18:16; Status DC Vancomycin HCl 750 mg/Sodium Chloride 250 ml @ 250 mls/hr Q24H IV ; Start at 18:00; Stop 11/14/17 at 18:00; Status DC Vancomycin HCl 1 each 1X ONCE MC ; Start 11/15/17 at 17:30; Stop 11/15/17 at 17:30; Status DC Acetaminophen (Tylenol) 500 mg PRN Q6HRS PRN PO MILD PAIN / TEMP Last administered on 11/14/17 21:39; Start 11/13/17 at 23:15 Alprazolam (Xanax) 0.25 mg PRN TID PRN PO ANXIETY / AGITATION Last administered on 11/15/17 06:40; Start 11/13/17 at 23:15 Tramadol HCl (Ultram) 50 mg PRN Q6HRS PRN PO MODERATE PAIN Last administered on 11/14/17 09:22; Start 11/13/17 at 23:15; Stop 11/14/17 at 10:09; Status DC Trazodone HCl (Desyrel) 25 mg HS PO Last administered on 11/14/17 21:40; Start 11/13/17 at 23:30 Lactobacillus Rhamnosus (Culturelle) 1 cap BID PO ; Start 11/14/17 at 09:00; Stop 11/14/17 at 10:32; Status DC Ondansetron HCl (Zofran) 4 mg PRN Q6HRS PRN IV NAUSEA/VOMITING; Start at 08:45; Stop 11/15/17 at 08:44; Status DC Acetaminophen (Tylenol) 650 mg PRN Q6HRS PRN PO pain Last administered on 11/15 11:23; Start 11/14/17 at 08:45 Allopurinol (Zyloprim) 100 mg DAILY PO Last administered on 11/15/17 08:24; Start 11/14/17 at 09:00 Calcitriol (Rocaltrol) 0.25 mcg DAILY PO Last administered on 11/15/17 08:22 ; Start 11/14/17 at 09:00 Furosemide (Lasix) 40 mg DAILY PO Last administered on 11/15/17 08:24; Start 11/14/17 at 09:00 Guaifenesin (MUCINEX ER with DM) 1 tab PRN Q12HRS PRN PO COUGH; Start at 08:45 Lactobacillus Rhamnosus (Culturelle) 1 cap BID PO Last administered on 08:24; Start 11/14/17 at 09:00 Levothyroxine Sodium (Synthroid) 100 mcg DAILY07 PO Last administered on 08:24; Start 11/14/17 at 10:30 Potassium Chloride (Klor-Con) 20 meq DAILYWBKFT PO Last administered on 09:23; Start 11/14/17 at 08:00; Stop 11/14/17 at 11:52; Status DC Propafenone HCl (Rythmol) 150 mg BID PO Last administered on 11/15/17 08:23; Start 11/14/17 at 09:00 Spironolactone (Aldactone) 25 mg DAILY PO Last administered on 11/14/17 09:23 ; Start 11/14/17 at 09:00; Stop 11/14/17 at 11:51; Status DC Non-Formulary Medication 1,000 mg BID PO ; Start 11/14/17 at 09:00; Status UNV Calcium/Vitamin D (Oscal D 500mg/ 200uts) 1 tab BIDWMEALS PO Last administered on 11/15/17 08:25; Start 11/14/17 at 09:00 Cetirizine HCl (ZyrTEC) 10 mg DAILY PO Last administered on 11/14/17 12:13; Start 11/14/17 at 10:00 Fish Oil (Fish Oil) 1,000 mg DAILY PO Last administered on 11/15/17 08:24; Start 11/14/17 at 10:00 Pantoprazole Sodium (Protonix) 40 mg DAILYAC PO Last administered on 08:25; Start 11/14/17 at 11:30 Paroxetine HCl (Paxil) 20 mg DAILY PO Last administered on 11/15/17 08:25; Start 11/14/17 at 11:00 Artificial Tears (Artificial Tears) 1 drop DAILY OU Last administered on 08:25; Start 11/14/17 at 10:30 Hydroxychloroquine Sulfate (Plaquenil) 200 mg DAILY08 PO Last administered on 11/15/17 08:25; Start 11/14/17 at 11:00 Ferrous Sulfate (Feosol) 325 mg DAILYWBKFT PO Last administered on 11/15/17 08:25; Start 11/14/17 at 12:00 Metolazone (Zaroxolyn) 5 mg DAILY PO Last administered on 11/14/17 09:24; Start 11/14/17 at 09:00; Stop 11/14/17 at 11:47; Status DC Tramadol HCl (Ultram) 50 mg PRN Q6HRS PRN PO PAIN Last administered on 05:46; Start 11/14/17 at 08:45 Warfarin Sodium (Coumadin Per Pharmacy) 1 each PRN DAILY PRN MC SEE COMMENTS Last administered on 11/15/17 15:09; Start 11/14/17 at 08:45 Linezolid (Zyvox) 600 mg BID PO ; Start 11/14/17 at 21:00; Stop 11/14/17 at 21 :00; Status DC Cefazolin Sodium 1 gm/Dextrose 50 ml @ 100 mls/hr Q8HRS IV ; Start 11/14/17 at 14:00; Stop 11/14/17 at 14:00; Status DC Cefazolin Sodium (Ancef) 1 gm Q8HRS IVP ; Start 11/14/17 at 11:00; Stop at 11:00; Status DC Vancomycin HCl (Vanco Per Pharmacy) 1 each PRN DAILY PRN MC SEE COMMENTS Last administered on 11/14/17 11:21; Start 11/14/17 at 10:45; Stop 11/15/17 at 13 :47; Status DC Ceftriaxone Sodium 2 gm/ Dextrose 100 ml @ 200 mls/hr Q24H IV ; Start at 10:45; Stop 11/14/17 at 10:45; Status DC Ceftriaxone Sodium (Rocephin) 1 gm Q24H IVP ; Start 11/14/17 at 11:00; Status Cancel Ceftriaxone Sodium (Rocephin) 2 gm Q24H IVP Last administered on 11/15/17 11: 19; Start 11/14/17 at 11:00 Vancomycin HCl 750 mg/Sodium Chloride 250 ml @ 250 mls/hr Q24H IV Last administered on 11/14/17 16:53; Start 11/14/17 at 18:00; Stop 11/15/17 at 13 :44; Status DC Vancomycin HCl 1 each 1X ONCE MC ; Start 11/15/17 at 17:30; Stop 11/15/17 at 17:30; Status DC Warfarin Sodium (Coumadin - No Dose Today) 1 each 1X WARF ONCE MC ; Start at 16:00; Stop 11/14/17 at 16:01; Status Cancel Metolazone (Zaroxolyn) 5 mg QMWF PO ; Start 11/15/17 at 16:00 Spironolactone (Aldactone) 50 mg DAILY PO Last administered on 11/15/17 08:23 ; Start 11/15/17 at 09:00 Potassium Chloride (Klor-Con) 60 meq BIDWMEALS PO Last administered on 08:25; Start 11/14/17 at 17:00 Methotrexate (Rheumatrex) 17.5 mg QWE PO ; Start 11/20/17 at 16:00 Warfarin Sodium (Coumadin) 3 mg 1X WARF ONCE PO Last administered on 16:45; Start 11/14/17 at 16:00; Stop 11/14/17 at 16:01; Status DC Vitamin A/Vitamin D (Vitamin A & D Ointment) 1 nelli PRN Q1HR PRN TP SKIN PROTECTION Last administered on 11/15/17 11:19; Start 11/14/17 at 14:00 Potassium Chloride 100 ml @ 100 mls/hr Q1H IV ; Start 11/15/17 at 06:00; Stop 11/15/17 at 07:59; Status UNV Potassium Chloride (KCl Oral Soln) 20 meq 1X ONCE PO Last administered on 06:35; Start 11/15/17 at 06:30; Stop 11/15/17 at 06:31; Status DC Linezolid (Zyvox) 600 mg BID PO ; Start 11/15/17 at 14:00 Warfarin Sodium (Coumadin) 6 mg 1X WARF ONCE PO ; Start 11/15/17 at 16:00; Stop 11/15/17 at 16:01 Active Scripts Active Keflex (Cephalexin) 250 Mg Capsule 1 Cap PO TID Klor-Con M20 (Potassium Chloride) 20 Meq Tab.er.prt 20 Meq PO DAILYWBKFT Culturelle (Lactobacillus Rhamnosus Gg) 1 Each Cap.sprink 1 Cap PO BID Furosemide 40 Mg Tablet 40 Mg PO DAILY Calcitriol 0.25 Mcg Capsule 0.25 Mcg PO DAILY Aldactone (Spironolactone) 25 Mg Tablet 1 Tab PO DAILY Reported Calcitriol 0.25 Mcg Capsule Metolazone 5 Mg Tablet Methotrexate (Methotrexate Sodium) 2.5 Mg Tablet 7 Tab PO SATURDAY [hydroxyl-chloroquine] 200 Mg PO DAILY08 Calcium + Vitamin D Tablet (Calcium Carbonate/Vitamin D3) 1 Each Tablet 1 Each PO BID Claritin (Loratadine) 10 Mg Tablet 1 Tab PO DAILY PRN Coumadin (Warfarin Sodium) 6 Mg Tablet 6 Mg PO ,,,,DUNCAN Acetaminophen 500 Mg Tablet 1 Tab PO PRN Q6HRS PRN Mucinex Dm Er 600-30 Mg Tablet (Guaifenesin/Dextromethorphan) 1 Each Tab.er.12h 1 Tab PO PRN Q12HRS Trazodone Hcl 50 Mg Tablet 25 Mg PO HS Propafenone Hcl 150 Mg Tablet 150 Mg PO BID Systane 0.3-0.4% Eye Drops (Propylene Glycol/Peg 400/Pf) 1 Each Droperette 1 Each OP DAILY Xanax (Alprazolam) 0.25 Mg Tablet 1 Tab PO PRN TID PRN Biotin 1 Mg Capsule 1,000 Mg PO BID [lutein] 1 Tab BID [Iron ] 1 Tab DAILY Omeprazole 40 Mg Capsule.dr 40 Mg PO DAILY Tramadol Hcl 50 Mg Tablet 50 Mg PO PRN Q6HRS PRN Fish Oil 1,000 Mg Softgel ([place]-3 Fatty Acids/Fish Oil) 1 Each Capsule 1 Each PO DAILY Allopurinol 100 Mg Tablet 100 Mg PO DAILY Paxil (Paroxetine Hcl) 40 Mg Tablet 20 Mg PO DAILY Levothyroxine Sodium 100 Mcg Tablet 100 Mcg PO DAILY Vitals/I & O Vital Sign - Last 24 Hours 11/14/17 11/14/17 11/14/17 11/14/17 16:45 17:45 19:00 20:00 Temp 97.9 97.9 Pulse 60 Resp 18 17 18 B/P (MAP) 99/50 (66) Pulse Ox 100 97 O2 Delivery Room Air Room Air Room Air 11/14/17 11/14/17 11/15/17 11/15/17 21:41 23:00 03:00 05:46 Temp 97.7 97.8 97.7 97.8 Pulse 60 60 61 Resp 18 18 B/P (MAP) 99/50 95/53 (67) 97/51 (66) Pulse Ox 99 99 99 O2 Delivery Room Air Room Air Room Air 11/15/17 11/15/17 11/15/17 11/15/17 06:46 07:00 08:00 08:23 Temp 97.5 97.5 Pulse 66 61 Resp 20 B/P (MAP) 106/54 (71) 97/51 Pulse Ox 99 98 O2 Delivery Room Air Room Air Room Air 11/15/17 11/15/17 11:00 15:00 Temp 95.5 98.1 95.5 98.1 Pulse 72 61 Resp 20 20 B/P (MAP) 111/63 (79) 92/46 (61) Pulse Ox 99 98 O2 Delivery Room Air Room Air Intake and Output 11/14/17 11/14/17 11/15/17 15:00 23:00 07:00 Intake Total 750 ml 0 ml Balance 750 ml 0 ml CJ DIAL MD Nov 15, 2017 15:43
[2017-11-15] MEDS ORDERED: WARFARIN 6 MG TABLET. PO ONE (16:00)
[2017-11-15] MEDS: metOLazone 2.5 MG TABLET PO SCH (16:05)
[2017-11-15] MEDS: LINEZOLID 600 MG TABLET PO SCH ×2 (16:06→20:44)
[2017-11-15 19:00] VITALS: BP_SYST 105; BP_SYST 95; BP_DIAS 55; BP_DIAS 59
[2017-11-15] MEDS: traZODone 50 MG TABLET. PO SCH (20:44)
[2017-11-15 23:09] VITALS: BP 98/53
[2017-11-16] MEDS: ACETAMINOPHEN 325 MG TABLET. PO PRN (02:15)
--- NOTE | 2017-11-16 02:16 | CONS ---
DATE OF CONSULTATION: 11/15/2017 PRIMARY PHYSICIAN: Dr. Elias. REASON FOR CONSULTATION: CKD. HISTORY OF PRESENT ILLNESS: The patient is a 77-year-old female with valvular heart disease. She tends to run a baseline creatinine of 1.2-1.5. She is currently running at 1.5. We were asked to see her for the same. She is currently admitted in the setting of right lower extremity cellulitis. She does have numerous diuretics on board. Echocardiogram was reviewed as well as previous imaging studies have not revealed any gross abnormalities. She does have right lower extremity cellulitis, which appears to be recurrent. She has been evaluated by Dr. Yusuf, ID and antibiotics have been initiated. She denies fevers, chills, etc. currently. She does have lowish blood pressure. For rest of details, see electronic records. MANISH YUSUF MD DR: UNIQUE/yo JOB#: [id number] / [id number]
[2017-11-16 03:06] VITALS: BP 99/47
[2017-11-16 05:28] LABS: BASO % 0 % (0-3); EOS % 0 % (0-3); HEMATOCRIT 30.7 % (36.0-47.0); HEMOGLOBIN 10.1 g/dL (12.0-15.5); LYMPH # 0.7 x10^3/uL (1.0-4.8); LYMPH % 9 % (24-48); MEAN CORPUSCULAR HEMOGLOBIN 33 pg (25-35); MEAN CORPUSCULAR HGB CONC 33 g/dL (31-37); MEAN CORPUSCULAR VOLUME 101 fL (79-100); MONO % 1 % (0-9); NEUT % 90 % (31-73); PLATELET COUNT 138 x10^3/uL (140-400); RED BLOOD COUNT 3.03 x10^6/uL (3.50-5.40); WHITE BLOOD COUNT 8.4 x10^3/uL (4.0-11.0)
[2017-11-16 05:46] LABS: INR 2.2 (0.8-1.1); PROTHROMBIN TIME PATIENT 22.7 SEC (11.7-14.0)
[2017-11-16 05:58] LABS: CREATININE 1.3 mg/dL (0.6-1.0); GFR 39.7; POTASSIUM 3.6 mmol/L (3.5-5.1)
[2017-11-16] MEDS: LEVOTHYROXINE 100 MCG TABLET PO SCH (06:19)
[2017-11-16] MEDS: ALPRAZolam 0.25 MG TABLET PO PRN ×3 (06:19→21:26)
[2017-11-16] MEDS: traMADol 50 MG TABLET PO PRN ×3 (06:19→21:25)
[2017-11-16] MEDS: PANTOPRAZOLE 40 MG TABLET.DR. PO SCH (06:19)
[2017-11-16 07:00] VITALS: BP 106/60
[2017-11-16 07:28] LABS: ANISOCYTOSIS PRESENT; PLT ESTIMATE DECREASED (ADEQUATE)
[2017-11-16 07:29] LABS: TOXIC GRANULATION PRESENT
[2017-11-16] MEDS: FERROUS SULFATE 325 MG TABLET. PO SCH (08:24)
[2017-11-16] MEDS: POTASSIUM CHLORIDE 20 MEQ TABLET.ER. PO SCH ×2 (08:25→17:19)
[2017-11-16] MEDS: POLYVINYL ALCOHOL 1.4% OPHTH SOLUTION 15ML BOTTLE. OU SCH (08:26)
[2017-11-16] MEDS: HYDROXYCHLOROQUINE 200 MG TABLET PO SCH (08:26)
[2017-11-16] MEDS: CALCIUM CARB/VIT D3 500/200 TABLET. PO SCH ×2 (08:26→17:19)
[2017-11-16] MEDS: LACTOBACILLUS RHAMNOSUS GG 1 CAPSULE. PO SCH ×2 (08:27→21:25)
[2017-11-16] MEDS: OMEGA-3 FATTY ACIDS/FISH OIL 1,000 MG CAPSULE. PO SCH (08:27)
[2017-11-16] MEDS: SPIRONOLACTONE 25 MG TABLET PO SCH (08:27)
[2017-11-16] MEDS: FUROSEMIDE 40 MG TABLET. PO SCH (08:28)
[2017-11-16] MEDS: PARoxetine 20 MG TABLET PO SCH (08:28)
[2017-11-16] MEDS: CALCITRIOL 0.25 MCG CAPSULE. PO SCH (08:28)
[2017-11-16] MEDS: CETIRIZINE HCL 10 MG TABLET. PO SCH (08:29)
[2017-11-16] MEDS: PROPAFENONE 150 MG TABLET. PO SCH ×2 (08:29→21:25)
[2017-11-16] MEDS: ALLOPURINOL 100 MG TABLET. PO SCH (08:29)
[2017-11-16] MEDS: LINEZOLID 600 MG TABLET PO SCH ×2 (08:29→21:25)
[2017-11-16] MEDS: VITS A & D/LANOLIN TOPICAL OINTMENT 56GM TUBE. TP PRN ×2 (09:27→21:31)
[2017-11-16] MEDS ORDERED: ONDANSETRON PF 4 MG/2 ML VIAL. IV PRN (10:30)
--- NOTE | 2017-11-16 10:39 | PDOC ---
PROGRESS NOTES Chief Complaint Chief Complaint Right leg pain and swelling. Cellulitis. Renal failure Diabetes Hypothyroidism Anxiety and depression History of Present Illness History of Present Illness Erythema on the lateral side of the right leg has gone down significantly. Continuing to treat cellulitis. Patient reports that her SOA has improved significantly since yesterday. 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 VSS. Blood pressure a little low, but patient says that is her normal. Patient reports nausea. Will add zofran. VSS Vitals Vitals Vital Signs Date Time Temp Pulse Resp B/P (MAP) Pulse Ox O2 Delivery O2 Flow Rate FiO2 11/16/17 08:29 63 106/60 11/16/17 08:00 Room Air 11/16/17 07:19 20 99 11/16/17 07:00 97.1 97.1 Physical Exam General: Alert, Oriented X3, Cooperative Heart: Regular rate, Normal S1, Normal S2, Other (irregularly irregular, S1-S2 , no changes in systolic and diastolic murmur.) Lungs: Clear, Other Abdomen: Normal bowel sounds, Soft Extremities: Other (area of excoriation and laceration with redness over the patella.) Labs LABS Laboratory Tests Test 11/15/17 14:45 11/15/17 15:10 11/16/17 05:00 Ferritin 147 ng/mL (8-252) Iron Level 48 ug/dL (50-170) Total Iron Binding Capacity 233 ug/dL (250-450) Iron Saturation 21 % (15-34) White Blood Count 8.4 x10^3/uL (4.0-11.0) Red Blood Count 3.03 x10^6/uL (3.50-5.40) Hemoglobin 10.1 g/dL (12.0-15.5) Hematocrit 30.7 % (36.0-47.0) Mean Corpuscular Volume 101 fL (79-100) Mean Corpuscular Hemoglobin 33 pg (25-35) Mean Corpuscular Hemoglobin Concent 33 g/dL (31-37) Red Cell Distribution Width 20.0 % (11.5-14.5) Platelet Count 138 x10^3/uL (140-400) Neutrophils (%) (Auto) 90 % (31-73) Lymphocytes (%) (Auto) 9 % (24-48) Monocytes (%) (Auto) 1 % (0-9) Eosinophils (%) (Auto) 0 % (0-3) Basophils (%) (Auto) 0 % (0-3) Neutrophils # (Auto) 7.5 x10^3uL (1.8-7.7) Lymphocytes # (Auto) 0.7 x10^3/uL (1.0-4.8) Monocytes # (Auto) 0.1 x10^3/uL (0.0-1.1) Eosinophils # (Auto) 0.0 x10^3/uL (0.0-0.7) Basophils # (Auto) 0.0 x10^3/uL (0.0-0.2) Segmented Neutrophils % 89 % (35-66) Band Neutrophils % 1 % (0-9) Lymphocytes % 9 % (24-48) Monocytes % 1 % (0-10) Toxic Granulation Present Platelet Estimate Decreased (ADEQUATE) Anisocytosis Present Prothrombin Time 22.7 SEC (11.7-14.0) Prothromb Time International Ratio 2.2 (0.8-1.1) Sodium Level 143 mmol/L (136-145) Potassium Level 3.6 mmol/L (3.5-5.1) Chloride Level 106 mmol/L (98-107) Carbon Dioxide Level 28 mmol/L (21-32) Anion Gap 9 (6-14) Blood Urea Nitrogen 30 mg/dL (7-20) Creatinine 1.3 mg/dL (0.6-1.0) Estimated GFR (Cockcroft-Gault) 39.7 Glucose Level 73 mg/dL (70-99) Calcium Level 8.0 mg/dL (8.5-10.1) Review of Systems Review of Systems Complains of weakness. Complains of aching pain all over her body. Patient has a history of RA. Assessment and Plan Assessmemt and Plan Problems Medical Problems: (1) Cellulitis of right lower extremity Status: Acute (2) Cellulitis of right lower extremity without foot Status: Acute Assessment Right leg pain and swelling. Cellulitis. Renal failure Diabetes Hypothyroidism Anxiety and depression Plan Continue antibiotics - ceftriaxone, linezolid Zofran for nausea Continue home medications PT/OT Appreciate subspecialty Problems: Comment Review of Relevant I have reviewed the following items leila (where applicable) has been applied. Labs Laboratory Tests Test 12/21/17 10:45 11/15/17 04:10 11/15/17 10:10 11/15/17 14:45 Prothrombin Time 27.0 SEC (11.7-14.0) 24.0 SEC (11.7-14.0) Prothromb Time International Ratio 2.7 (0.8-1.1) 2.3 (0.8-1.1) White Blood Count 13.2 x10^3/uL (4.0-11.0) Red Blood Count 3.07 x10^6/uL (3.50-5.40) Hemoglobin 10.2 g/dL (12.0-15.5) Hematocrit 31.1 % (36.0-47.0) Mean Corpuscular Volume 101 fL (79-100) Mean Corpuscular Hemoglobin 33 pg (25-35) Mean Corpuscular Hemoglobin Concent 33 g/dL (31-37) Red Cell Distribution Width 20.0 % (11.5-14.5) Platelet Count 122 x10^3/uL (140-400) Neutrophils (%) (Auto) 94 % (31-73) Lymphocytes (%) (Auto) 5 % (24-48) Monocytes (%) (Auto) 1 % (0-9) Eosinophils (%) (Auto) 0 % (0-3) Basophils (%) (Auto) 0 % (0-3) Neutrophils # (Auto) 12.5 x10^3uL (1.8-7.7) Lymphocytes # (Auto) 0.6 x10^3/uL (1.0-4.8) Monocytes # (Auto) 0.1 x10^3/uL (0.0-1.1) Eosinophils # (Auto) 0.0 x10^3/uL (0.0-0.7) Basophils # (Auto) 0.0 x10^3/uL (0.0-0.2) Sodium Level 139 mmol/L (136-145) 139 mmol/L (136-145) Potassium Level 2.9 mmol/L (3.5-5.1) 4.0 mmol/L (3.5-5.1) Chloride Level 102 mmol/L (98-107) 103 mmol/L (98-107) Carbon Dioxide Level 26 mmol/L (21-32) 27 mmol/L (21-32) Anion Gap 11 (6-14) 9 (6-14) Blood Urea Nitrogen 34 mg/dL (7-20) 34 mg/dL (7-20) Creatinine 1.5 mg/dL (0.6-1.0) 1.5 mg/dL (0.6-1.0) Estimated GFR (Cockcroft-Gault) 33.7 33.7 Glucose Level 77 mg/dL (70-99) 92 mg/dL (70-99) Calcium Level 7.9 mg/dL (8.5-10.1) 7.4 mg/dL (8.5-10.1) Ferritin 147 ng/mL (8-252) Test 11/15/17 15:10 11/16/17 05:00 Iron Level 48 ug/dL (50-170) Total Iron Binding Capacity 233 ug/dL (250-450) Iron Saturation 21 % (15-34) White Blood Count 8.4 x10^3/uL (4.0-11.0) Red Blood Count 3.03 x10^6/uL (3.50-5.40) Hemoglobin 10.1 g/dL (12.0-15.5) Hematocrit 30.7 % (36.0-47.0) Mean Corpuscular Volume 101 fL (79-100) Mean Corpuscular Hemoglobin 33 pg (25-35) Mean Corpuscular Hemoglobin Concent 33 g/dL (31-37) Red Cell Distribution Width 20.0 % (11.5-14.5) Platelet Count 138 x10^3/uL (140-400) Neutrophils (%) (Auto) 90 % (31-73) Lymphocytes (%) (Auto) 9 % (24-48) Monocytes (%) (Auto) 1 % (0-9) Eosinophils (%) (Auto) 0 % (0-3) Basophils (%) (Auto) 0 % (0-3) Neutrophils # (Auto) 7.5 x10^3uL (1.8-7.7) Lymphocytes # (Auto) 0.7 x10^3/uL (1.0-4.8) Monocytes # (Auto) 0.1 x10^3/uL (0.0-1.1) Eosinophils # (Auto) 0.0 x10^3/uL (0.0-0.7) Basophils # (Auto) 0.0 x10^3/uL (0.0-0.2) Segmented Neutrophils % 89 % (35-66) Band Neutrophils % 1 % (0-9) Lymphocytes % 9 % (24-48) Monocytes % 1 % (0-10) Toxic Granulation Present Platelet Estimate Decreased (ADEQUATE) Anisocytosis Present Prothrombin Time 22.7 SEC (11.7-14.0) Prothromb Time International Ratio 2.2 (0.8-1.1) Sodium Level 143 mmol/L (136-145) Potassium Level 3.6 mmol/L (3.5-5.1) Chloride Level 106 mmol/L (98-107) Carbon Dioxide Level 28 mmol/L (21-32) Anion Gap 9 (6-14) Blood Urea Nitrogen 30 mg/dL (7-20) Creatinine 1.3 mg/dL (0.6-1.0) Estimated GFR (Cockcroft-Gault) 39.7 Glucose Level 73 mg/dL (70-99) Calcium Level 8.0 mg/dL (8.5-10.1) Laboratory Tests Test 11/15/17 14:45 11/15/17 15:10 11/16/17 05:00 Ferritin 147 ng/mL (8-252) Iron Level 48 ug/dL (50-170) Total Iron Binding Capacity 233 ug/dL (250-450) Iron Saturation 21 % (15-34) White Blood Count 8.4 x10^3/uL (4.0-11.0) Red Blood Count 3.03 x10^6/uL (3.50-5.40) Hemoglobin 10.1 g/dL (12.0-15.5) Hematocrit 30.7 % (36.0-47.0) Mean Corpuscular Volume 101 fL (79-100) Mean Corpuscular Hemoglobin 33 pg (25-35) Mean Corpuscular Hemoglobin Concent 33 g/dL (31-37) Red Cell Distribution Width 20.0 % (11.5-14.5) Platelet Count 138 x10^3/uL (140-400) Neutrophils (%) (Auto) 90 % (31-73) Lymphocytes (%) (Auto) 9 % (24-48) Monocytes (%) (Auto) 1 % (0-9) Eosinophils (%) (Auto) 0 % (0-3) Basophils (%) (Auto) 0 % (0-3) Neutrophils # (Auto) 7.5 x10^3uL (1.8-7.7) Lymphocytes # (Auto) 0.7 x10^3/uL (1.0-4.8) Monocytes # (Auto) 0.1 x10^3/uL (0.0-1.1) Eosinophils # (Auto) 0.0 x10^3/uL (0.0-0.7) Basophils # (Auto) 0.0 x10^3/uL (0.0-0.2) Segmented Neutrophils % 89 % (35-66) Band Neutrophils % 1 % (0-9) Lymphocytes % 9 % (24-48) Monocytes % 1 % (0-10) Toxic Granulation Present Platelet Estimate Decreased (ADEQUATE) Anisocytosis Present Prothrombin Time 22.7 SEC (11.7-14.0) Prothromb Time International Ratio 2.2 (0.8-1.1) Sodium Level 143 mmol/L (136-145) Potassium Level 3.6 mmol/L (3.5-5.1) Chloride Level 106 mmol/L (98-107) Carbon Dioxide Level 28 mmol/L (21-32) Anion Gap 9 (6-14) Blood Urea Nitrogen 30 mg/dL (7-20) Creatinine 1.3 mg/dL (0.6-1.0) Estimated GFR (Cockcroft-Gault) 39.7 Glucose Level 73 mg/dL (70-99) Calcium Level 8.0 mg/dL (8.5-10.1) Medications Current Medications Aspirin (Children'S Aspirin) 324 mg 1X ONCE PO ; Start 11/13/17 at 17:15; Stop 11/13/17 at 17:16; Status DC Vancomycin HCl (Vanco Per Pharmacy) 1 each PRN DAILY PRN MC SEE COMMENTS Last administered on 11/13/17t 18:43; Start 11/13/17 at 17:15; Stop 11/14/17 at 10 :28; Status DC Ondansetron HCl (Zofran) 4 mg PRN Q8HRS PRN IV NAUSEA/VOMITING; Start at 17:15; Stop 11/14/17 at 08:38; Status DC Sodium Chloride 1,000 ml @ 100 mls/hr Q10H IV Last administered on 11/14/17 03:13; Start 11/13/17 at 17:13; Stop 11/14/17 at 17:12; Status DC Vancomycin HCl 1.25 gm/Sodium Chloride 250 ml @ 166.667 mls/hr 1X ONCE IV Last administered on 11/13/17 18:00; Start 11/13/17 at 18:00; Stop 11/13/17 at 19:29; Status DC Acetaminophen (Tylenol) 650 mg 1X ONCE PO Last administered on 11/13/17 18: 40; Start 11/13/17 at 18:15; Stop 11/13/17 at 18:16; Status DC Vancomycin HCl 750 mg/Sodium Chloride 250 ml @ 250 mls/hr Q24H IV ; Start at 18:00; Stop 11/14/17 at 18:00; Status DC Vancomycin HCl 1 each 1X ONCE MC ; Start 11/15/17 at 17:30; Stop 11/15/17 at 17:30; Status DC Acetaminophen (Tylenol) 500 mg PRN Q6HRS PRN PO MILD PAIN / TEMP Last administered on 11/14/17 21:39; Start 11/13/17 at 23:15 Alprazolam (Xanax) 0.25 mg PRN TID PRN PO ANXIETY / AGITATION Last administered on 11/16/17 06:19; Start 11/13/17 at 23:15 Tramadol HCl (Ultram) 50 mg PRN Q6HRS PRN PO MODERATE PAIN Last administered on 11/14/17 09:22; Start 11/13/17 at 23:15; Stop 11/14/17 at 10:09; Status DC Trazodone HCl (Desyrel) 25 mg HS PO Last administered on 11/15/17 20:44; Start 11/13/17 at 23:30 Lactobacillus Rhamnosus (Culturelle) 1 cap BID PO ; Start 11/14/17 at 09:00; Stop 11/14/17 at 10:32; Status DC Ondansetron HCl (Zofran) 4 mg PRN Q6HRS PRN IV NAUSEA/VOMITING; Start at 08:45; Stop 11/15/17 at 08:44; Status DC Acetaminophen (Tylenol) 650 mg PRN Q6HRS PRN PO pain Last administered on 11/16 02:15; Start 11/14/17 at 08:45 Allopurinol (Zyloprim) 100 mg DAILY PO Last administered on 11/16/17 08:29; Start 11/14/17 at 09:00 Calcitriol (Rocaltrol) 0.25 mcg DAILY PO Last administered on 11/16/17 08:28 ; Start 11/14/17 at 09:00 Furosemide (Lasix) 40 mg DAILY PO Last administered on 11/16/17 08:28; Start 11/14/17 at 09:00 Guaifenesin (MUCINEX ER with DM) 1 tab PRN Q12HRS PRN PO COUGH; Start at 08:45 Lactobacillus Rhamnosus (Culturelle) 1 cap BID PO Last administered on 08:27; Start 11/14/17 at 09:00 Levothyroxine Sodium (Synthroid) 100 mcg DAILY07 PO Last administered on 06:19; Start 11/14/17 at 10:30 Potassium Chloride (Klor-Con) 20 meq DAILYWBKFT PO Last administered on 09:23; Start 11/14/17 at 08:00; Stop 11/14/17 at 11:52; Status DC Propafenone HCl (Rythmol) 150 mg BID PO Last administered on 11/16/17 08:29; Start 11/14/17 at 09:00 Spironolactone (Aldactone) 25 mg DAILY PO Last administered on 11/14/17 09:23 ; Start 11/14/17 at 09:00; Stop 11/14/17 at 11:51; Status DC Non-Formulary Medication 1,000 mg BID PO ; Start 11/14/17 at 09:00; Status UNV Calcium/Vitamin D (Oscal D 500mg/ 200uts) 1 tab BIDWMEALS PO Last administered on 11/16/17 08:26; Start 11/14/17 at 09:00 Cetirizine HCl (ZyrTEC) 10 mg DAILY PO Last administered on 11/14/17 12:13; Start 11/14/17 at 10:00 Fish Oil (Fish Oil) 1,000 mg DAILY PO Last administered on 11/16/17 08:27; Start 11/14/17 at 10:00 Pantoprazole Sodium (Protonix) 40 mg DAILYAC PO Last administered on 06:19; Start 11/14/17 at 11:30 Paroxetine HCl (Paxil) 20 mg DAILY PO Last administered on 11/16/17 08:28; Start 11/14/17 at 11:00 Artificial Tears (Artificial Tears) 1 drop DAILY OU Last administered on 08:26; Start 11/14/17 at 10:30 Hydroxychloroquine Sulfate (Plaquenil) 200 mg DAILY08 PO Last administered on 11/16/17 08:26; Start 11/14/17 at 11:00 Ferrous Sulfate (Feosol) 325 mg DAILYWBKFT PO Last administered on 11/16/17 08:24; Start 11/14/17 at 12:00 Metolazone (Zaroxolyn) 5 mg DAILY PO Last administered on 11/14/17 09:24; Start 11/14/17 at 09:00; Stop 11/14/17 at 11:47; Status DC Tramadol HCl (Ultram) 50 mg PRN Q6HRS PRN PO PAIN Last administered on 06:19; Start 11/14/17 at 08:45 Warfarin Sodium (Coumadin Per Pharmacy) 1 each PRN DAILY PRN MC SEE COMMENTS Last administered on 11/15/17 15:09; Start 11/14/17 at 08:45 Linezolid (Zyvox) 600 mg BID PO ; Start 11/14/17 at 21:00; Stop 11/14/17 at 21 :00; Status DC Cefazolin Sodium 1 gm/Dextrose 50 ml @ 100 mls/hr Q8HRS IV ; Start 11/14/17 at 14:00; Stop 11/14/17 at 14:00; Status DC Cefazolin Sodium (Ancef) 1 gm Q8HRS IVP ; Start 11/14/17 at 11:00; Stop at 11:00; Status DC Vancomycin HCl (Vanco Per Pharmacy) 1 each PRN DAILY PRN MC SEE COMMENTS Last administered on 11/14/17 11:21; Start 11/14/17 at 10:45; Stop 11/15/17 at 13 :47; Status DC Ceftriaxone Sodium 2 gm/ Dextrose 100 ml @ 200 mls/hr Q24H IV ; Start at 10:45; Stop 11/14/17 at 10:45; Status DC Ceftriaxone Sodium (Rocephin) 1 gm Q24H IVP ; Start 11/14/17 at 11:00; Status Cancel Ceftriaxone Sodium (Rocephin) 2 gm Q24H IVP Last administered on 11/15/17 11: 19; Start 11/14/17 at 11:00 Vancomycin HCl 750 mg/Sodium Chloride 250 ml @ 250 mls/hr Q24H IV Last administered on 11/14/17 16:53; Start 11/14/17 at 18:00; Stop 11/15/17 at 13 :44; Status DC Vancomycin HCl 1 each 1X ONCE MC ; Start 11/15/17 at 17:30; Stop 11/15/17 at 17:30; Status DC Warfarin Sodium (Coumadin - No Dose Today) 1 each 1X WARF ONCE MC ; Start at 16:00; Stop 11/14/17 at 16:01; Status Cancel Metolazone (Zaroxolyn) 5 mg QMWF PO Last administered on 11/15/17 16:05; Start 11/15/17 at 16:00 Spironolactone (Aldactone) 50 mg DAILY PO Last administered on 11/16/17 08:27 ; Start 11/15/17 at 09:00 Potassium Chloride (Klor-Con) 60 meq BIDWMEALS PO Last administered on 08:25; Start 11/14/17 at 17:00 Methotrexate (Rheumatrex) 17.5 mg QWE PO ; Start 11/20/17 at 16:00 Warfarin Sodium (Coumadin) 3 mg 1X WARF ONCE PO Last administered on 16:45; Start 11/14/17 at 16:00; Stop 11/14/17 at 16:01; Status DC Vitamin A/Vitamin D (Vitamin A & D Ointment) 1 nelli PRN Q1HR PRN TP SKIN PROTECTION Last administered on 11/16/17 09:27; Start 11/14/17 at 14:00 Potassium Chloride 100 ml @ 100 mls/hr Q1H IV ; Start 11/15/17 at 06:00; Stop 11/15/17 at 07:59; Status UNV Potassium Chloride (KCl Oral Soln) 20 meq 1X ONCE PO Last administered on 06:35; Start 11/15/17 at 06:30; Stop 11/15/17 at 06:31; Status DC Linezolid (Zyvox) 600 mg BID PO Last administered on 11/16/17 08:29; Start 11/15/17 at 14:00 Warfarin Sodium (Coumadin) 6 mg 1X WARF ONCE PO Last administered on 16:06; Start 11/15/17 at 16:00; Stop 11/15/17 at 16:01; Status DC Ondansetron HCl (Zofran) 4 mg PRN Q6HRS PRN IV NAUSEA/VOMITING; Start at 10:30; Status UNV Active Scripts Active Keflex (Cephalexin) 250 Mg Capsule 1 Cap PO TID Klor-Con M20 (Potassium Chloride) 20 Meq Tab.er.prt 20 Meq PO DAILYWBKFT Culturelle (Lactobacillus Rhamnosus Gg) 1 Each Cap.sprink 1 Cap PO BID Furosemide 40 Mg Tablet 40 Mg PO DAILY Calcitriol 0.25 Mcg Capsule 0.25 Mcg PO DAILY Aldactone (Spironolactone) 25 Mg Tablet 1 Tab PO DAILY Reported Calcitriol 0.25 Mcg Capsule Metolazone 5 Mg Tablet Methotrexate (Methotrexate Sodium) 2.5 Mg Tablet 7 Tab PO SATURDAY [hydroxyl-chloroquine] 200 Mg PO DAILY08 Calcium + Vitamin D Tablet (Calcium Carbonate/Vitamin D3) 1 Each Tablet 1 Each PO BID Claritin (Loratadine) 10 Mg Tablet 1 Tab PO DAILY PRN Coumadin (Warfarin Sodium) 6 Mg Tablet 6 Mg PO ,,,, Acetaminophen 500 Mg Tablet 1 Tab PO PRN Q6HRS PRN Mucinex Dm Er 600-30 Mg Tablet (Guaifenesin/Dextromethorphan) 1 Each Tab.er.12h 1 Tab PO PRN Q12HRS Trazodone Hcl 50 Mg Tablet 25 Mg PO HS Propafenone Hcl 150 Mg Tablet 150 Mg PO BID Systane 0.3-0.4% Eye Drops (Propylene Glycol/Peg 400/Pf) 1 Each Droperette 1 Each OP DAILY Xanax (Alprazolam) 0.25 Mg Tablet 1 Tab PO PRN TID PRN Biotin 1 Mg Capsule 1,000 Mg PO BID [lutein] 1 Tab BID [Iron ] 1 Tab DAILY Omeprazole 40 Mg Capsule.dr 40 Mg PO DAILY Tramadol Hcl 50 Mg Tablet 50 Mg PO PRN Q6HRS PRN Fish Oil 1,000 Mg Softgel ([place]-3 Fatty Acids/Fish Oil) 1 Each Capsule 1 Each PO DAILY Allopurinol 100 Mg Tablet 100 Mg PO DAILY Paxil (Paroxetine Hcl) 40 Mg Tablet 20 Mg PO DAILY Levothyroxine Sodium 100 Mcg Tablet 100 Mcg PO DAILY Vitals/I & O Vital Sign - Last 24 Hours 11/15/17 11/15/17 11/15/17 11/15/17 11:00 15:00 16:07 19:00 Temp 95.5 98.1 97.3 95.5 98.1 97.3 Pulse 72 61 63 Resp 20 20 18 B/P (MAP) 111/63 (79) 92/46 (61) 95/55 (68) Pulse Ox 99 98 98 100 O2 Delivery Room Air Room Air Room Air Room Air 11/15/17 11/15/17 11/15/17 11/16/17 20:44 20:44 23:09 03:06 Temp 97.7 97.9 97.7 97.9 Pulse 63 61 58 Resp 18 19 B/P (MAP) 95/55 98/53 (68) 99/47 (64) Pulse Ox 98 99 O2 Delivery Room Air Room Air Room Air 11/16/17 11/16/17 11/16/17 11/16/17 06:19 07:00 07:19 08:00 Temp 97.1 97.1 Pulse 63 Resp 20 20 20 B/P (MAP) 106/60 (75) Pulse Ox 100 99 O2 Delivery Room Air Room Air Room Air Room Air 11/16/17 08:29 Pulse 63 B/P (MAP) 106/60 Intake and Output 11/15/17 11/15/17 11/16/17 15:00 23:00 07:00 Intake Total 450 ml 60 ml Output Total 600 ml Balance 450 ml -540 ml CASTLE,NIAL K III DO Nov 16, 2017 10:39
[2017-11-16 11:00] VITALS: BP 110/63
[2017-11-16] MEDS: cefTRIAXone IV Push 2 GM VIAL. IVP SCH ×2 (11:47→12:55)
--- NOTE | 2017-11-16 14:39 | PDOC ---
Infectious Disease Note Subjective Subjective c/o RLE aches and soreness Chronic loose stools ROS ROS GEN: Denies fevers, chills, sweats CV: Denies chest pain RESP: Denies shortness of air, cough GI: Denies n/v Vital Sign Vital Signs Vital Signs Date Time Temp Pulse Resp B/P (MAP) Pulse Ox O2 Delivery O2 Flow Rate FiO2 11/16/17 13:55 20 94 Room Air 11/16/17 11:00 98.5 72 110/63 (79) 98.5 Physical Exam PHYSICAL EXAM GENERAL: Up in the chair, relaxed appearance HEENT: OC/OP clear LUNGS: Clear HEART: S1S2, no gallop, no murmur ABD: Soft, NT EXT: No edema, no cyanosis; RLE w/o redness or warmth W[employer] F[employer]RICATOR: Alert, oriented x 3 SKIN: No rash IV: ok Labs Lab Laboratory Tests Test 11/15/17 14:45 11/15/17 15:10 11/16/17 05:00 Ferritin 147 ng/mL (8-252) Iron Level 48 ug/dL (50-170) Total Iron Binding Capacity 233 ug/dL (250-450) Iron Saturation 21 % (15-34) White Blood Count 8.4 x10^3/uL (4.0-11.0) Red Blood Count 3.03 x10^6/uL (3.50-5.40) Hemoglobin 10.1 g/dL (12.0-15.5) Hematocrit 30.7 % (36.0-47.0) Mean Corpuscular Volume 101 fL (79-100) Mean Corpuscular Hemoglobin 33 pg (25-35) Mean Corpuscular Hemoglobin Concent 33 g/dL (31-37) Red Cell Distribution Width 20.0 % (11.5-14.5) Platelet Count 138 x10^3/uL (140-400) Neutrophils (%) (Auto) 90 % (31-73) Lymphocytes (%) (Auto) 9 % (24-48) Monocytes (%) (Auto) 1 % (0-9) Eosinophils (%) (Auto) 0 % (0-3) Basophils (%) (Auto) 0 % (0-3) Neutrophils # (Auto) 7.5 x10^3uL (1.8-7.7) Lymphocytes # (Auto) 0.7 x10^3/uL (1.0-4.8) Monocytes # (Auto) 0.1 x10^3/uL (0.0-1.1) Eosinophils # (Auto) 0.0 x10^3/uL (0.0-0.7) Basophils # (Auto) 0.0 x10^3/uL (0.0-0.2) Segmented Neutrophils % 89 % (35-66) Band Neutrophils % 1 % (0-9) Lymphocytes % 9 % (24-48) Monocytes % 1 % (0-10) Toxic Granulation Present Platelet Estimate Decreased (ADEQUATE) Anisocytosis Present Prothrombin Time 22.7 SEC (11.7-14.0) Prothromb Time International Ratio 2.2 (0.8-1.1) Sodium Level 143 mmol/L (136-145) Potassium Level 3.6 mmol/L (3.5-5.1) Chloride Level 106 mmol/L (98-107) Carbon Dioxide Level 28 mmol/L (21-32) Anion Gap 9 (6-14) Blood Urea Nitrogen 30 mg/dL (7-20) Creatinine 1.3 mg/dL (0.6-1.0) Estimated GFR (Cockcroft-Gault) 39.7 Glucose Level 73 mg/dL (70-99) Calcium Level 8.0 mg/dL (8.5-10.1) Objective Assessment 1. 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 improving 2. History of rheumatoid arthritis with a second toe surgery. 3. Degenerative joint disease. 4. Lung cancer, status post lobectomy. 5. Left shoulder surgery. 6. Right hip surgery. 7. Gastroesophageal reflux disease. 8. Depression. 9. History of congestive heart failure. 10. History of atrial fibrillation. 11. Anxiety and depression. 12. History of transient ischemic attack. 13. Chronic lymphedema of bilateral lower extremity. 14. Bilateral lower extremity varicosities. Plan Plan of Care continue ceftriaxone,add linezolid Elevate lower extremity. Local care. Probiotics. BC pending Patient seen and examined. Chart reviewed. Case discussed with TEST CONDUCTOR. Agree with above plan. ELIAZAR REYEZ APRN Nov 16, 2017 14:39 TOI ROSALES MD Nov 16, 2017 18:57
[2017-11-16 14:44] VITALS: BP 116/53
--- NOTE | 2017-11-16 14:51 | PDOC ---
PROGRESS NOTES Subjective Subjective H and feels a little better. Wants a raisin pie for Norma. Objective Objective Vital Signs Date Time Temp Pulse Resp B/P (MAP) Pulse Ox O2 Delivery O2 Flow Rate FiO2 11/16/17 13:55 20 94 Room Air 11/16/17 11:00 98.5 72 110/63 (79) 98.5 Intake and Output 11/16/17 07:00 Intake Total 510 ml Output Total 600 ml Balance -90 ml Intake Oral 510 ml Output Urine Total 600 ml # Voids 3 Physical Exam Physical Exam No significant changes in cardiac exam Assessment Assessment Patient seems to be improving. Appears to be compensated cardiac-thomson at this time. Problems Medical Problems: (1) Cellulitis of right lower extremity Status: Acute (2) Cellulitis of right lower extremity without foot Status: Acute Comment Review of Relevant I have reviewed the following items leila (where applicable) has been applied. Labs Laboratory Tests Test 11/15/17 04:10 11/15/17 10:10 11/15/17 14:45 11/15/17 15:10 White Blood Count 13.2 x10^3/uL (4.0-11.0) Red Blood Count 3.07 x10^6/uL (3.50-5.40) Hemoglobin 10.2 g/dL (12.0-15.5) Hematocrit 31.1 % (36.0-47.0) Mean Corpuscular Volume 101 fL (79-100) Mean Corpuscular Hemoglobin 33 pg (25-35) Mean Corpuscular Hemoglobin Concent 33 g/dL (31-37) Red Cell Distribution Width 20.0 % (11.5-14.5) Platelet Count 122 x10^3/uL (140-400) Neutrophils (%) (Auto) 94 % (31-73) Lymphocytes (%) (Auto) 5 % (24-48) Monocytes (%) (Auto) 1 % (0-9) Eosinophils (%) (Auto) 0 % (0-3) Basophils (%) (Auto) 0 % (0-3) Neutrophils # (Auto) 12.5 x10^3uL (1.8-7.7) Lymphocytes # (Auto) 0.6 x10^3/uL (1.0-4.8) Monocytes # (Auto) 0.1 x10^3/uL (0.0-1.1) Eosinophils # (Auto) 0.0 x10^3/uL (0.0-0.7) Basophils # (Auto) 0.0 x10^3/uL (0.0-0.2) Prothrombin Time 24.0 SEC (11.7-14.0) Prothromb Time International Ratio 2.3 (0.8-1.1) Sodium Level 139 mmol/L (136-145) 139 mmol/L (136-145) Potassium Level 2.9 mmol/L (3.5-5.1) 4.0 mmol/L (3.5-5.1) Chloride Level 102 mmol/L (98-107) 103 mmol/L (98-107) Carbon Dioxide Level 26 mmol/L (21-32) 27 mmol/L (21-32) Anion Gap 11 (6-14) 9 (6-14) Blood Urea Nitrogen 34 mg/dL (7-20) 34 mg/dL (7-20) Creatinine 1.5 mg/dL (0.6-1.0) 1.5 mg/dL (0.6-1.0) Estimated GFR (Cockcroft-Gault) 33.7 33.7 Glucose Level 77 mg/dL (70-99) 92 mg/dL (70-99) Calcium Level 7.9 mg/dL (8.5-10.1) 7.4 mg/dL (8.5-10.1) Ferritin 147 ng/mL (8-252) Iron Level 48 ug/dL (50-170) Total Iron Binding Capacity 233 ug/dL (250-450) Iron Saturation 21 % (15-34) Test 11/16/17 05:00 White Blood Count 8.4 x10^3/uL (4.0-11.0) Red Blood Count 3.03 x10^6/uL (3.50-5.40) Hemoglobin 10.1 g/dL (12.0-15.5) Hematocrit 30.7 % (36.0-47.0) Mean Corpuscular Volume 101 fL (79-100) Mean Corpuscular Hemoglobin 33 pg (25-35) Mean Corpuscular Hemoglobin Concent 33 g/dL (31-37) Red Cell Distribution Width 20.0 % (11.5-14.5) Platelet Count 138 x10^3/uL (140-400) Neutrophils (%) (Auto) 90 % (31-73) Lymphocytes (%) (Auto) 9 % (24-48) Monocytes (%) (Auto) 1 % (0-9) Eosinophils (%) (Auto) 0 % (0-3) Basophils (%) (Auto) 0 % (0-3) Neutrophils # (Auto) 7.5 x10^3uL (1.8-7.7) Lymphocytes # (Auto) 0.7 x10^3/uL (1.0-4.8) Monocytes # (Auto) 0.1 x10^3/uL (0.0-1.1) Eosinophils # (Auto) 0.0 x10^3/uL (0.0-0.7) Basophils # (Auto) 0.0 x10^3/uL (0.0-0.2) Segmented Neutrophils % 89 % (35-66) Band Neutrophils % 1 % (0-9) Lymphocytes % 9 % (24-48) Monocytes % 1 % (0-10) Toxic Granulation Present Platelet Estimate Decreased (ADEQUATE) Anisocytosis Present Prothrombin Time 22.7 SEC (11.7-14.0) Prothromb Time International Ratio 2.2 (0.8-1.1) Sodium Level 143 mmol/L (136-145) Potassium Level 3.6 mmol/L (3.5-5.1) Chloride Level 106 mmol/L (98-107) Carbon Dioxide Level 28 mmol/L (21-32) Anion Gap 9 (6-14) Blood Urea Nitrogen 30 mg/dL (7-20) Creatinine 1.3 mg/dL (0.6-1.0) Estimated GFR (Cockcroft-Gault) 39.7 Glucose Level 73 mg/dL (70-99) Calcium Level 8.0 mg/dL (8.5-10.1) Laboratory Tests Test 11/15/17 14:45 11/15/17 15:10 11/16/17 05:00 Ferritin 147 ng/mL (8-252) Iron Level 48 ug/dL (50-170) Total Iron Binding Capacity 233 ug/dL (250-450) Iron Saturation 21 % (15-34) White Blood Count 8.4 x10^3/uL (4.0-11.0) Red Blood Count 3.03 x10^6/uL (3.50-5.40) Hemoglobin 10.1 g/dL (12.0-15.5) Hematocrit 30.7 % (36.0-47.0) Mean Corpuscular Volume 101 fL (79-100) Mean Corpuscular Hemoglobin 33 pg (25-35) Mean Corpuscular Hemoglobin Concent 33 g/dL (31-37) Red Cell Distribution Width 20.0 % (11.5-14.5) Platelet Count 138 x10^3/uL (140-400) Neutrophils (%) (Auto) 90 % (31-73) Lymphocytes (%) (Auto) 9 % (24-48) Monocytes (%) (Auto) 1 % (0-9) Eosinophils (%) (Auto) 0 % (0-3) Basophils (%) (Auto) 0 % (0-3) Neutrophils # (Auto) 7.5 x10^3uL (1.8-7.7) Lymphocytes # (Auto) 0.7 x10^3/uL (1.0-4.8) Monocytes # (Auto) 0.1 x10^3/uL (0.0-1.1) Eosinophils # (Auto) 0.0 x10^3/uL (0.0-0.7) Basophils # (Auto) 0.0 x10^3/uL (0.0-0.2) Segmented Neutrophils % 89 % (35-66) Band Neutrophils % 1 % (0-9) Lymphocytes % 9 % (24-48) Monocytes % 1 % (0-10) Toxic Granulation Present Platelet Estimate Decreased (ADEQUATE) Anisocytosis Present Prothrombin Time 22.7 SEC (11.7-14.0) Prothromb Time International Ratio 2.2 (0.8-1.1) Sodium Level 143 mmol/L (136-145) Potassium Level 3.6 mmol/L (3.5-5.1) Chloride Level 106 mmol/L (98-107) Carbon Dioxide Level 28 mmol/L (21-32) Anion Gap 9 (6-14) Blood Urea Nitrogen 30 mg/dL (7-20) Creatinine 1.3 mg/dL (0.6-1.0) Estimated GFR (Cockcroft-Gault) 39.7 Glucose Level 73 mg/dL (70-99) Calcium Level 8.0 mg/dL (8.5-10.1) Medications Current Medications Aspirin (Children'S Aspirin) 324 mg 1X ONCE PO ; Start 11/13/17 at 17:15; Stop 11/13/17 at 17:16; Status DC Vancomycin HCl (Vanco Per Pharmacy) 1 each PRN DAILY PRN MC SEE COMMENTS Last administered on 11/13/17 18:43; Start 11/13/17 at 17:15; Stop 11/14/17 at 10 :28; Status DC Ondansetron HCl (Zofran) 4 mg PRN Q8HRS PRN IV NAUSEA/VOMITING; Start at 17:15; Stop 11/14/17 at 08:38; Status DC Sodium Chloride 1,000 ml @ 100 mls/hr Q10H IV Last administered on 11/14/17 03:13; Start 11/13/17 at 17:13; Stop 11/14/17 at 17:12; Status DC Vancomycin HCl 1.25 gm/Sodium Chloride 250 ml @ 166.667 mls/hr 1X ONCE IV Last administered on 11/13/17 18:00; Start 11/13/17 at 18:00; Stop 11/13/17 at 19:29; Status DC Acetaminophen (Tylenol) 650 mg 1X ONCE PO Last administered on 11/13/17 18: 40; Start 11/13/17 at 18:15; Stop 11/13/17 at 18:16; Status DC Vancomycin HCl 750 mg/Sodium Chloride 250 ml @ 250 mls/hr Q24H IV ; Start at 18:00; Stop 11/14/17 at 18:00; Status DC Vancomycin HCl 1 each 1X ONCE MC ; Start 11/15/17 at 17:30; Stop 11/15/17 at 17:30; Status DC Acetaminophen (Tylenol) 500 mg PRN Q6HRS PRN PO MILD PAIN / TEMP Last administered on 11/14/17 21:39; Start 11/13/17 at 23:15 Alprazolam (Xanax) 0.25 mg PRN TID PRN PO ANXIETY / AGITATION Last administered on 11/16/17 06:19; Start 11/13/17 at 23:15 Tramadol HCl (Ultram) 50 mg PRN Q6HRS PRN PO MODERATE PAIN Last administered on 11/14/17 09:22; Start 11/13/17 at 23:15; Stop 11/14/17 at 10:09; Status DC Trazodone HCl (Desyrel) 25 mg HS PO Last administered on 11/15/17 20:44; Start 11/13/17 at 23:30 Lactobacillus Rhamnosus (Culturelle) 1 cap BID PO ; Start 11/14/17 at 09:00; Stop 11/14/17 at 10:32; Status DC Ondansetron HCl (Zofran) 4 mg PRN Q6HRS PRN IV NAUSEA/VOMITING; Start at 08:45; Stop 11/15/17 at 08:44; Status DC Acetaminophen (Tylenol) 650 mg PRN Q6HRS PRN PO pain Last administered on 11/16 02:15; Start 11/14/17 at 08:45 Allopurinol (Zyloprim) 100 mg DAILY PO Last administered on 11/16/17 08:29; Start 11/14/17 at 09:00 Calcitriol (Rocaltrol) 0.25 mcg DAILY PO Last administered on 11/16/17 08:28 ; Start 11/14/17 at 09:00 Furosemide (Lasix) 40 mg DAILY PO Last administered on 11/16/17 08:28; Start 11/14/17 at 09:00 Guaifenesin (MUCINEX ER with DM) 1 tab PRN Q12HRS PRN PO COUGH; Start at 08:45 Lactobacillus Rhamnosus (Culturelle) 1 cap BID PO Last administered on 08:27; Start 11/14/17 at 09:00 Levothyroxine Sodium (Synthroid) 100 mcg DAILY07 PO Last administered on 06:19; Start 11/14/17 at 10:30 Potassium Chloride (Klor-Con) 20 meq DAILYWBKFT PO Last administered on 09:23; Start 11/14/17 at 08:00; Stop 11/14/17 at 11:52; Status DC Propafenone HCl (Rythmol) 150 mg BID PO Last administered on 11/16/17 08:29; Start 11/14/17 at 09:00 Spironolactone (Aldactone) 25 mg DAILY PO Last administered on 11/14/17 09:23 ; Start 11/14/17 at 09:00; Stop 11/14/17 at 11:51; Status DC Non-Formulary Medication 1,000 mg BID PO ; Start 11/14/17 at 09:00; Status UNV Calcium/Vitamin D (Oscal D 500mg/ 200uts) 1 tab BIDWMEALS PO Last administered on 11/16/17 08:26; Start 11/14/17 at 09:00 Cetirizine HCl (ZyrTEC) 10 mg DAILY PO Last administered on 11/14/17 12:13; Start 11/14/17 at 10:00 Fish Oil (Fish Oil) 1,000 mg DAILY PO Last administered on 11/16/17 08:27; Start 11/14/17 at 10:00 Pantoprazole Sodium (Protonix) 40 mg DAILYAC PO Last administered on 06:19; Start 11/14/17 at 11:30 Paroxetine HCl (Paxil) 20 mg DAILY PO Last administered on 11/16/17 08:28; Start 11/14/17 at 11:00 Artificial Tears (Artificial Tears) 1 drop DAILY OU Last administered on 08:26; Start 11/14/17 at 10:30 Hydroxychloroquine Sulfate (Plaquenil) 200 mg DAILY08 PO Last administered on 11/16/17 08:26; Start 11/14/17 at 11:00 Ferrous Sulfate (Feosol) 325 mg DAILYWBKFT PO Last administered on 11/16/17 08:24; Start 11/14/17 at 12:00 Metolazone (Zaroxolyn) 5 mg DAILY PO Last administered on 11/14/17 09:24; Start 11/14/17 at 09:00; Stop 11/14/17 at 11:47; Status DC Tramadol HCl (Ultram) 50 mg PRN Q6HRS PRN PO MODERATE - SEVERE PAIN Last administered on 11/16/17 12:55; Start 11/14/17 at 08:45 Warfarin Sodium (Coumadin Per Pharmacy) 1 each PRN DAILY PRN MC SEE COMMENTS Last administered on 11/16/17 13:54; Start 11/14/17 at 08:45 Linezolid (Zyvox) 600 mg BID PO ; Start 11/14/17 at 21:00; Stop 11/14/17 at 21 :00; Status DC Cefazolin Sodium 1 gm/Dextrose 50 ml @ 100 mls/hr Q8HRS IV ; Start 11/14/17 at 14:00; Stop 11/14/17 at 14:00; Status DC Cefazolin Sodium (Ancef) 1 gm Q8HRS IVP ; Start 11/14/17 at 11:00; Stop at 11:00; Status DC Vancomycin HCl (Vanco Per Pharmacy) 1 each PRN DAILY PRN MC SEE COMMENTS Last administered on 11/14/17 11:21; Start 11/14/17 at 10:45; Stop 11/15/17 at 13 :47; Status DC Ceftriaxone Sodium 2 gm/ Dextrose 100 ml @ 200 mls/hr Q24H IV ; Start at 10:45; Stop 11/14/17 at 10:45; Status DC Ceftriaxone Sodium (Rocephin) 1 gm Q24H IVP ; Start 11/14/17 at 11:00; Status Cancel Ceftriaxone Sodium (Rocephin) 2 gm Q24H IVP Last administered on 11/16/17 12: 55; Start 11/14/17 at 11:00 Vancomycin HCl 750 mg/Sodium Chloride 250 ml @ 250 mls/hr Q24H IV Last administered on 11/14/17 16:53; Start 11/14/17 at 18:00; Stop 11/15/17 at 13 :44; Status DC Vancomycin HCl 1 each 1X ONCE MC ; Start 11/15/17 at 17:30; Stop 11/15/17 at 17:30; Status DC Warfarin Sodium (Coumadin - No Dose Today) 1 each 1X WARF ONCE MC ; Start at 16:00; Stop 11/14/17 at 16:01; Status Cancel Metolazone (Zaroxolyn) 5 mg QMWF PO Last administered on 11/15/17 16:05; Start 11/15/17 at 16:00 Spironolactone (Aldactone) 50 mg DAILY PO Last administered on 11/16/17 08:27 ; Start 11/15/17 at 09:00 Potassium Chloride (Klor-Con) 60 meq BIDWMEALS PO Last administered on 08:25; Start 11/14/17 at 17:00 Methotrexate (Rheumatrex) 17.5 mg QWE PO ; Start 11/20/17 at 16:00 Warfarin Sodium (Coumadin) 3 mg 1X WARF ONCE PO Last administered on 16:45; Start 11/14/17 at 16:00; Stop 11/14/17 at 16:01; Status DC Vitamin A/Vitamin D (Vitamin A & D Ointment) 1 nelli PRN Q1HR PRN TP SKIN PROTECTION Last administered on 11/16/17 09:27; Start 11/14/17 at 14:00 Potassium Chloride 100 ml @ 100 mls/hr Q1H IV ; Start 11/15/17 at 06:00; Stop 11/15/17 at 07:59; Status UNV Potassium Chloride (KCl Oral Soln) 20 meq 1X ONCE PO Last administered on 06:35; Start 11/15/17 at 06:30; Stop 11/15/17 at 06:31; Status DC Linezolid (Zyvox) 600 mg BID PO Last administered on 11/16/17 08:29; Start 11/15/17 at 14:00 Warfarin Sodium (Coumadin) 6 mg 1X WARF ONCE PO Last administered on 16:06; Start 11/15/17 at 16:00; Stop 11/15/17 at 16:01; Status DC Ondansetron HCl (Zofran) 4 mg PRN Q6HRS PRN IV NAUSEA/VOMITING; Start at 10:30 Warfarin Sodium (Coumadin) 6 mg 1X WARF ONCE PO ; Start 11/16/17 at 16:00; Stop 11/16/17 at 16:01 Active Scripts Active Keflex (Cephalexin) 250 Mg Capsule 1 Cap PO TID Klor-Con M20 (Potassium Chloride) 20 Meq Tab.er.prt 20 Meq PO DAILYWBKFT Culturelle (Lactobacillus Rhamnosus Gg) 1 Each Cap.sprink 1 Cap PO BID Furosemide 40 Mg Tablet 40 Mg PO DAILY Calcitriol 0.25 Mcg Capsule 0.25 Mcg PO DAILY Aldactone (Spironolactone) 25 Mg Tablet 1 Tab PO DAILY Reported Calcitriol 0.25 Mcg Capsule Metolazone 5 Mg Tablet Methotrexate (Methotrexate Sodium) 2.5 Mg Tablet 7 Tab PO SATURDAY [hydroxyl-chloroquine] 200 Mg PO DAILY08 Calcium + Vitamin D Tablet (Calcium Carbonate/Vitamin D3) 1 Each Tablet 1 Each PO BID Claritin (Loratadine) 10 Mg Tablet 1 Tab PO DAILY PRN Coumadin (Warfarin Sodium) 6 Mg Tablet 6 Mg PO ,,,, Acetaminophen 500 Mg Tablet 1 Tab PO PRN Q6HRS PRN Mucinex Dm Er 600-30 Mg Tablet (Guaifenesin/Dextromethorphan) 1 Each Tab.er.12h 1 Tab PO PRN Q12HRS Trazodone Hcl 50 Mg Tablet 25 Mg PO HS Propafenone Hcl 150 Mg Tablet 150 Mg PO BID Systane 0.3-0.4% Eye Drops (Propylene Glycol/Peg 400/Pf) 1 Each Droperette 1 Each OP DAILY Xanax (Alprazolam) 0.25 Mg Tablet 1 Tab PO PRN TID PRN Biotin 1 Mg Capsule 1,000 Mg PO BID [lutein] 1 Tab BID [Iron ] 1 Tab DAILY Omeprazole 40 Mg Capsule.dr 40 Mg PO DAILY Tramadol Hcl 50 Mg Tablet 50 Mg PO PRN Q6HRS PRN Fish Oil 1,000 Mg Softgel (Valley-3 Fatty Acids/Fish Oil) 1 Each Capsule 1 Each PO DAILY Allopurinol 100 Mg Tablet 100 Mg PO DAILY Paxil (Paroxetine Hcl) 40 Mg Tablet 20 Mg PO DAILY Levothyroxine Sodium 100 Mcg Tablet 100 Mcg PO DAILY Vitals/I & O Vital Sign - Last 24 Hours 11/15/17 11/15/17 11/15/17 11/15/17 15:00 16:07 19:00 20:44 Temp 98.1 97.3 98.1 97.3 Pulse 61 63 Resp 20 18 B/P (MAP) 92/46 (61) 95/55 (68) Pulse Ox 98 98 100 O2 Delivery Room Air Room Air Room Air Room Air 11/15/17 11/15/17 11/16/17 11/16/17 20:44 23:09 03:06 06:19 Temp 97.7 97.9 97.7 97.9 Pulse 63 61 58 Resp 18 19 20 B/P (MAP) 95/55 98/53 (68) 99/47 (64) Pulse Ox 98 99 O2 Delivery Room Air Room Air Room Air 11/16/17 11/16/17 11/16/17 11/16/17 07:00 08:00 08:29 11:00 Temp 97.1 98.5 97.1 98.5 Pulse 63 63 72 Resp 20 20 B/P (MAP) 106/60 (75) 106/60 110/63 (79) Pulse Ox 100 94 O2 Delivery Room Air Room Air 11/16/17 11/16/17 12:55 13:55 Resp 20 20 Pulse Ox 94 94 O2 Delivery Room Air Room Air Intake and Output 11/15/17 11/15/17 11/16/17 15:00 23:00 07:00 Intake Total 450 ml 60 ml Output Total 600 ml Balance 450 ml -540 ml JC DIAL MD Nov 16, 2017 14:51
[2017-11-16] MEDS ORDERED: WARFARIN 6 MG TABLET. PO ONE (16:00)
--- NOTE | 2017-11-16 17:03 | PDOC ---
PULMONARY PROGRESS NOTES Subjective no soa Vitals Vital Signs Date Time Temp Pulse Resp B/P (MAP) Pulse Ox O2 Delivery O2 Flow Rate FiO2 11/16/17 14:44 96.5 68 20 116/53 (74) 94 Room Air 96.5 General: Alert, Oriented X4, No acute distress Lungs: Clear Cardiovascular: S1, S2 Abdomen: Soft, Non-tender Neuro Exam: Alert Extremities: Other (less erythema) Labs Laboratory Tests Test 11/15/17 04:10 11/15/17 10:10 11/15/17 14:45 11/15/17 15:10 White Blood Count 13.2 x10^3/uL (4.0-11.0) Red Blood Count 3.07 x10^6/uL (3.50-5.40) Hemoglobin 10.2 g/dL (12.0-15.5) Hematocrit 31.1 % (36.0-47.0) Mean Corpuscular Volume 101 fL (79-100) Mean Corpuscular Hemoglobin 33 pg (25-35) Mean Corpuscular Hemoglobin Concent 33 g/dL (31-37) Red Cell Distribution Width 20.0 % (11.5-14.5) Platelet Count 122 x10^3/uL (140-400) Neutrophils (%) (Auto) 94 % (31-73) Lymphocytes (%) (Auto) 5 % (24-48) Monocytes (%) (Auto) 1 % (0-9) Eosinophils (%) (Auto) 0 % (0-3) Basophils (%) (Auto) 0 % (0-3) Neutrophils # (Auto) 12.5 x10^3uL (1.8-7.7) Lymphocytes # (Auto) 0.6 x10^3/uL (1.0-4.8) Monocytes # (Auto) 0.1 x10^3/uL (0.0-1.1) Eosinophils # (Auto) 0.0 x10^3/uL (0.0-0.7) Basophils # (Auto) 0.0 x10^3/uL (0.0-0.2) Prothrombin Time 24.0 SEC (11.7-14.0) Prothromb Time International Ratio 2.3 (0.8-1.1) Sodium Level 139 mmol/L (136-145) 139 mmol/L (136-145) Potassium Level 2.9 mmol/L (3.5-5.1) 4.0 mmol/L (3.5-5.1) Chloride Level 102 mmol/L (98-107) 103 mmol/L (98-107) Carbon Dioxide Level 26 mmol/L (21-32) 27 mmol/L (21-32) Anion Gap 11 (6-14) 9 (6-14) Blood Urea Nitrogen 34 mg/dL (7-20) 34 mg/dL (7-20) Creatinine 1.5 mg/dL (0.6-1.0) 1.5 mg/dL (0.6-1.0) Estimated GFR (Cockcroft-Gault) 33.7 33.7 Glucose Level 77 mg/dL (70-99) 92 mg/dL (70-99) Calcium Level 7.9 mg/dL (8.5-10.1) 7.4 mg/dL (8.5-10.1) Ferritin 147 ng/mL (8-252) Iron Level 48 ug/dL (50-170) Total Iron Binding Capacity 233 ug/dL (250-450) Iron Saturation 21 % (15-34) Test 11/16/17 05:00 White Blood Count 8.4 x10^3/uL (4.0-11.0) Red Blood Count 3.03 x10^6/uL (3.50-5.40) Hemoglobin 10.1 g/dL (12.0-15.5) Hematocrit 30.7 % (36.0-47.0) Mean Corpuscular Volume 101 fL (79-100) Mean Corpuscular Hemoglobin 33 pg (25-35) Mean Corpuscular Hemoglobin Concent 33 g/dL (31-37) Red Cell Distribution Width 20.0 % (11.5-14.5) Platelet Count 138 x10^3/uL (140-400) Neutrophils (%) (Auto) 90 % (31-73) Lymphocytes (%) (Auto) 9 % (24-48) Monocytes (%) (Auto) 1 % (0-9) Eosinophils (%) (Auto) 0 % (0-3) Basophils (%) (Auto) 0 % (0-3) Neutrophils # (Auto) 7.5 x10^3uL (1.8-7.7) Lymphocytes # (Auto) 0.7 x10^3/uL (1.0-4.8) Monocytes # (Auto) 0.1 x10^3/uL (0.0-1.1) Eosinophils # (Auto) 0.0 x10^3/uL (0.0-0.7) Basophils # (Auto) 0.0 x10^3/uL (0.0-0.2) Segmented Neutrophils % 89 % (35-66) Band Neutrophils % 1 % (0-9) Lymphocytes % 9 % (24-48) Monocytes % 1 % (0-10) Toxic Granulation Present Platelet Estimate Decreased (ADEQUATE) Anisocytosis Present Prothrombin Time 22.7 SEC (11.7-14.0) Prothromb Time International Ratio 2.2 (0.8-1.1) Sodium Level 143 mmol/L (136-145) Potassium Level 3.6 mmol/L (3.5-5.1) Chloride Level 106 mmol/L (98-107) Carbon Dioxide Level 28 mmol/L (21-32) Anion Gap 9 (6-14) Blood Urea Nitrogen 30 mg/dL (7-20) Creatinine 1.3 mg/dL (0.6-1.0) Estimated GFR (Cockcroft-Gault) 39.7 Glucose Level 73 mg/dL (70-99) Calcium Level 8.0 mg/dL (8.5-10.1) Laboratory Tests Test 11/16/17 05:00 White Blood Count 8.4 x10^3/uL (4.0-11.0) Red Blood Count 3.03 x10^6/uL (3.50-5.40) Hemoglobin 10.1 g/dL (12.0-15.5) Hematocrit 30.7 % (36.0-47.0) Mean Corpuscular Volume 101 fL (79-100) Mean Corpuscular Hemoglobin 33 pg (25-35) Mean Corpuscular Hemoglobin Concent 33 g/dL (31-37) Red Cell Distribution Width 20.0 % (11.5-14.5) Platelet Count 138 x10^3/uL (140-400) Neutrophils (%) (Auto) 90 % (31-73) Lymphocytes (%) (Auto) 9 % (24-48) Monocytes (%) (Auto) 1 % (0-9) Eosinophils (%) (Auto) 0 % (0-3) Basophils (%) (Auto) 0 % (0-3) Neutrophils # (Auto) 7.5 x10^3uL (1.8-7.7) Lymphocytes # (Auto) 0.7 x10^3/uL (1.0-4.8) Monocytes # (Auto) 0.1 x10^3/uL (0.0-1.1) Eosinophils # (Auto) 0.0 x10^3/uL (0.0-0.7) Basophils # (Auto) 0.0 x10^3/uL (0.0-0.2) Segmented Neutrophils % 89 % (35-66) Band Neutrophils % 1 % (0-9) Lymphocytes % 9 % (24-48) Monocytes % 1 % (0-10) Toxic Granulation Present Platelet Estimate Decreased (ADEQUATE) Anisocytosis Present Prothrombin Time 22.7 SEC (11.7-14.0) Prothromb Time International Ratio 2.2 (0.8-1.1) Sodium Level 143 mmol/L (136-145) Potassium Level 3.6 mmol/L (3.5-5.1) Chloride Level 106 mmol/L (98-107) Carbon Dioxide Level 28 mmol/L (21-32) Anion Gap 9 (6-14) Blood Urea Nitrogen 30 mg/dL (7-20) Creatinine 1.3 mg/dL (0.6-1.0) Estimated GFR (Cockcroft-Gault) 39.7 Glucose Level 73 mg/dL (70-99) Calcium Level 8.0 mg/dL (8.5-10.1) Medications Active Scripts Medications Dose Route/Sig Max Daily Dose Days Date Category Keflex (Cephalexin) 250 Mg Capsule 1 Cap PO TID 10/23/17 Rx Klor-Con M20 (Potassium Chloride) 20 Meq Tab.er.prt 20 Meq PO DAILYWBKFT 10/23/17 Rx Culturelle (Lactobacillus Rhamnosus Gg) 1 Each Cap.sprink 1 Cap PO BID 10/23/17 Rx Furosemide 40 Mg Tablet 40 Mg PO DAILY 10/23/17 Rx Calcitriol 0.25 Mcg Capsule 0.25 Mcg PO DAILY 10/23/17 Rx Calcitriol 0.25 Mcg Capsule 10/20/17 Reported Metolazone 5 Mg Tablet 07/28/17 Reported Aldactone (Spironolactone) 25 Mg Tablet 1 Tab PO DAILY 07/01/17 Rx Methotrexate (Methotrexate Sodium) 2.5 Mg Tablet 7 Tab PO Saturday06/23/17 Reported [hydroxyl-chloroquine] 200 Mg PO DAILY08 05/18/17 Reported Calcium + Vitamin D Tablet (Calcium Carbonate/Vitamin D3) 1 Each Tablet 1 Each PO BID 05/18/17 Reported Claritin (Loratadine) 10 Mg Tablet 1 Tab PO DAILY PRN 05/18/17 Reported Coumadin (Warfarin Sodium) 6 Mg Tablet 6 Mg PO ,,TH,SA,DUNCAN 05/18/17 Reported Acetaminophen 500 Mg Tablet 1 Tab PO PRN Q6HRS PRN 03/28/16 Reported Mucinex Dm Er 600-30 Mg Tablet (Guaifenesin/Dextromethorphan) 1 Each Tab.er.12h 1 Tab PO PRN Q12HRS 03/28/16 Reported Trazodone Hcl 50 Mg Tablet 25 Mg PO HS 03/28/16 Reported Propafenone Hcl 150 Mg Tablet 150 Mg PO BID 03/28/16 Reported Systane 0.3-0.4% Eye Drops (Propylene Glycol/Peg 400/Pf) 1 Each Droperette 1 Each OP DAILY 12/26/15 Reported Xanax (Alprazolam) 0.25 Mg Tablet 1 Tab PO PRN TID PRN 12/23/15 Reported Biotin 1 Mg Capsule 1,000 Mg PO BID 12/23/15 Reported [lutein] 1 Tab BID 12/23/15 Reported [Iron ] 1 Tab DAILY 12/23/15 Reported Omeprazole 40 Mg Capsule.dr 40 Mg PO DAILY 11/28/13 Reported Tramadol Hcl 50 Mg Tablet 50 Mg PO PRN Q6HRS PRN 11/28/13 Reported Fish Oil 1,000 Mg Softgel ([place]-3 Fatty Acids/Fish Oil) 1 Each Capsule 1 Each PO DAILY 11/28/13 Reported Allopurinol 100 Mg Tablet 100 Mg PO DAILY 11/28/13 Reported Paxil (Paroxetine Hcl) 40 Mg Tablet 20 Mg PO DAILY 11/28/13 Reported Levothyroxine Sodium 100 Mcg Tablet 100 Mcg PO DAILY 11/28/13 Reported Impression . 1. Subjective dyspnea. Clinically, she appears to be doing well. There is no infiltrate seen on the chest x-ray. The patient is already on anticoagulation and clinically, I do not suspect thromboembolic disease in the setting of a therapeutic INR. At this point, I do not see any further workup and we will monitor clinically. 2. 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 Chest x-ray is clear. 3. Lower extremity cellulitis. Venous Dopplers showing no evidence of deep venous thrombosis. Plan . 1. respiratory status stable 2. Continue anticoagulation per PCP. 3. Antibiotic per Infectious Disease. 4. PRN bronchodilators. 5. No further pulmonary workup at this point. will see prn GUNNAR RAND MD Nov 16, 2017 17:03
[2017-11-16 19:00] VITALS: BP 99/46
[2017-11-16] MEDS: traZODone 50 MG TABLET. PO SCH (21:26)
[2017-11-16 23:00] VITALS: BP 103/59
[2017-11-17 03:03] VITALS: BP 113/66
[2017-11-17] MEDS: ACETAMINOPHEN 325 MG TABLET. PO PRN ×2 (04:09→20:45)
[2017-11-17] MEDS: LEVOTHYROXINE 100 MCG TABLET PO SCH (05:04)
[2017-11-17] MEDS: PANTOPRAZOLE 40 MG TABLET.DR. PO SCH (05:04)
[2017-11-17 06:40] LABS: BASO % 0 % (0-3); EOS % 0 % (0-3); LYMPH # 0.9 x10^3/uL (1.0-4.8); LYMPH % 13 % (24-48); MEAN CORPUSCULAR HEMOGLOBIN 33 pg (25-35); MEAN CORPUSCULAR HGB CONC 32 g/dL (31-37); MEAN CORPUSCULAR VOLUME 102 fL (79-100); MONO % 2 % (0-9); NEUT % 85 % (31-73); PLATELET COUNT 169 x10^3/uL (140-400); RED BLOOD COUNT 3.35 x10^6/uL (3.50-5.40); RED CELL DISTRIBUTION WIDTH 19.7 % (11.5-14.5)
[2017-11-17 06:45] LABS: CALCIUM 8.2 mg/dL (8.5-10.1); CREATININE 1.3 mg/dL (0.6-1.0); GFR 39.7; POTASSIUM 4.2 mmol/L (3.5-5.1)
[2017-11-17 06:51] LABS: INR 3.1 (0.8-1.1); PROTHROMBIN TIME PATIENT 29.9 SEC (11.7-14.0)
[2017-11-17 07:00] VITALS: BP 109/54
[2017-11-17 08:15] LABS: PTH INTACT 114 pg/mL (15-65)
[2017-11-17] MEDS: FERROUS SULFATE 325 MG TABLET. PO SCH (08:47)
[2017-11-17] MEDS: POTASSIUM CHLORIDE 20 MEQ TABLET.ER. PO SCH ×2 (08:48→16:54)
[2017-11-17] MEDS: CALCIUM CARB/VIT D3 500/200 TABLET. PO SCH ×2 (08:49→16:53)
[2017-11-17] MEDS: SPIRONOLACTONE 25 MG TABLET PO SCH (08:50)
[2017-11-17] MEDS: POLYVINYL ALCOHOL 1.4% OPHTH SOLUTION 15ML BOTTLE. OU SCH (08:50)
[2017-11-17] MEDS: HYDROXYCHLOROQUINE 200 MG TABLET PO SCH (08:50)
[2017-11-17] MEDS: OMEGA-3 FATTY ACIDS/FISH OIL 1,000 MG CAPSULE. PO SCH (08:51)
[2017-11-17] MEDS: LACTOBACILLUS RHAMNOSUS GG 1 CAPSULE. PO SCH ×2 (08:51→20:42)
[2017-11-17] MEDS: FUROSEMIDE 40 MG TABLET. PO SCH (08:51)
[2017-11-17] MEDS: CALCITRIOL 0.25 MCG CAPSULE. PO SCH (08:52)
[2017-11-17] MEDS: PARoxetine 20 MG TABLET PO SCH (08:52)
[2017-11-17] MEDS: PROPAFENONE 150 MG TABLET. PO SCH ×2 (08:53→20:42)
[2017-11-17] MEDS: ALLOPURINOL 100 MG TABLET. PO SCH (08:53)
[2017-11-17] MEDS: LINEZOLID 600 MG TABLET PO SCH ×2 (08:54→20:42)
[2017-11-17] MEDS: CETIRIZINE HCL 10 MG TABLET. PO SCH (08:54)
[2017-11-17] MEDS: traMADol 50 MG TABLET PO PRN ×2 (08:55→17:02)
[2017-11-17] MEDS: ALPRAZolam 0.25 MG TABLET PO PRN ×2 (08:55→17:01)
[2017-11-17] MEDS: VITS A & D/LANOLIN TOPICAL OINTMENT 56GM TUBE. TP PRN ×2 (08:56→20:45)
--- NOTE | 2017-11-17 10:27 | PDOC ---
PULMONARY PROGRESS NOTES Subjective c/o mild soa anxious Vitals Vital Signs Date Time Temp Pulse Resp B/P (MAP) Pulse Ox O2 Delivery O2 Flow Rate FiO2 11/17/17 09:55 20 99 Room Air 11/17/17 08:53 73 109/54 11/17/17 07:00 97.7 97.7 General: Alert, Oriented X4, No acute distress Lungs: Clear Cardiovascular: S1, S2 Abdomen: Soft, Non-tender Neuro Exam: Alert Extremities: Other (less erythema) Labs Laboratory Tests Test 11/15/17 14:45 11/15/17 15:10 11/16/17 05:00 11/17/17 04:20 Estimated GFR (Non- 41 (>59) Ferritin 147 ng/mL (8-252) EGFR 47 (>59) PTH (Intact) Specimen Description Comment (.) Parathyroid Hormone (Intact) 114 pg/mL (15-65) Calcium (PTH Intact) 8.3 mg/dL (8.7-10.3) Creatinine (PTH Intact) 1.26 mg/dL (0.57-1.00) Phosphorus (PTH Intact) 2.7 mg/dL (2.5-4.5) Iron Level 48 ug/dL (50-170) Total Iron Binding Capacity 233 ug/dL (250-450) Iron Saturation 21 % (15-34) White Blood Count 8.4 x10^3/uL (4.0-11.0) 7.0 x10^3/uL (4.0-11.0) Red Blood Count 3.03 x10^6/uL (3.50-5.40) 3.35 x10^6/uL (3.50-5.40) Hemoglobin 10.1 g/dL (12.0-15.5) 11.0 g/dL (12.0-15.5) Hematocrit 30.7 % (36.0-47.0) 34.0 % (36.0-47.0) Mean Corpuscular Volume 101 fL (79-100) 102 fL (79-100) Mean Corpuscular Hemoglobin 33 pg (25-35) 33 pg (25-35) Mean Corpuscular Hemoglobin Concent 33 g/dL (31-37) 32 g/dL (31-37) Red Cell Distribution Width 20.0 % (11.5-14.5) 19.7 % (11.5-14.5) Platelet Count 138 x10^3/uL (140-400) 169 x10^3/uL (140-400) Neutrophils (%) (Auto) 90 % (31-73) 85 % (31-73) Lymphocytes (%) (Auto) 9 % (24-48) 13 % (24-48) Monocytes (%) (Auto) 1 % (0-9) 2 % (0-9) Eosinophils (%) (Auto) 0 % (0-3) 0 % (0-3) Basophils (%) (Auto) 0 % (0-3) 0 % (0-3) Neutrophils # (Auto) 7.5 x10^3uL (1.8-7.7) 6.0 x10^3uL (1.8-7.7) Lymphocytes # (Auto) 0.7 x10^3/uL (1.0-4.8) 0.9 x10^3/uL (1.0-4.8) Monocytes # (Auto) 0.1 x10^3/uL (0.0-1.1) 0.1 x10^3/uL (0.0-1.1) Eosinophils # (Auto) 0.0 x10^3/uL (0.0-0.7) 0.0 x10^3/uL (0.0-0.7) Basophils # (Auto) 0.0 x10^3/uL (0.0-0.2) 0.0 x10^3/uL (0.0-0.2) Segmented Neutrophils % 89 % (35-66) Band Neutrophils % 1 % (0-9) Lymphocytes % 9 % (24-48) Monocytes % 1 % (0-10) Toxic Granulation Present Platelet Estimate Decreased (ADEQUATE) Anisocytosis Present Prothrombin Time 22.7 SEC (11.7-14.0) 29.9 SEC (11.7-14.0) Prothromb Time International Ratio 2.2 (0.8-1.1) 3.1 (0.8-1.1) Sodium Level 143 mmol/L (136-145) 142 mmol/L (136-145) Potassium Level 3.6 mmol/L (3.5-5.1) 4.2 mmol/L (3.5-5.1) Chloride Level 106 mmol/L (98-107) 107 mmol/L (98-107) Carbon Dioxide Level 28 mmol/L (21-32) 29 mmol/L (21-32) Anion Gap 9 (6-14) 6 (6-14) Blood Urea Nitrogen 30 mg/dL (7-20) 23 mg/dL (7-20) Creatinine 1.3 mg/dL (0.6-1.0) 1.3 mg/dL (0.6-1.0) Estimated GFR (Cockcroft-Gault) 39.7 39.7 Glucose Level 73 mg/dL (70-99) 77 mg/dL (70-99) Calcium Level 8.0 mg/dL (8.5-10.1) 8.2 mg/dL (8.5-10.1) Laboratory Tests Test 11/17/17 04:20 White Blood Count 7.0 x10^3/uL (4.0-11.0) Red Blood Count 3.35 x10^6/uL (3.50-5.40) Hemoglobin 11.0 g/dL (12.0-15.5) Hematocrit 34.0 % (36.0-47.0) Mean Corpuscular Volume 102 fL (79-100) Mean Corpuscular Hemoglobin 33 pg (25-35) Mean Corpuscular Hemoglobin Concent 32 g/dL (31-37) Red Cell Distribution Width 19.7 % (11.5-14.5) Platelet Count 169 x10^3/uL (140-400) Neutrophils (%) (Auto) 85 % (31-73) Lymphocytes (%) (Auto) 13 % (24-48) Monocytes (%) (Auto) 2 % (0-9) Eosinophils (%) (Auto) 0 % (0-3) Basophils (%) (Auto) 0 % (0-3) Neutrophils # (Auto) 6.0 x10^3uL (1.8-7.7) Lymphocytes # (Auto) 0.9 x10^3/uL (1.0-4.8) Monocytes # (Auto) 0.1 x10^3/uL (0.0-1.1) Eosinophils # (Auto) 0.0 x10^3/uL (0.0-0.7) Basophils # (Auto) 0.0 x10^3/uL (0.0-0.2) Prothrombin Time 29.9 SEC (11.7-14.0) Prothromb Time International Ratio 3.1 (0.8-1.1) Sodium Level 142 mmol/L (136-145) Potassium Level 4.2 mmol/L (3.5-5.1) Chloride Level 107 mmol/L (98-107) Carbon Dioxide Level 29 mmol/L (21-32) Anion Gap 6 (6-14) Blood Urea Nitrogen 23 mg/dL (7-20) Creatinine 1.3 mg/dL (0.6-1.0) Estimated GFR (Cockcroft-Gault) 39.7 Glucose Level 77 mg/dL (70-99) Calcium Level 8.2 mg/dL (8.5-10.1) Medications Active Scripts Medications Dose Route/Sig Max Daily Dose Days Date Category Keflex (Cephalexin) 250 Mg Capsule 1 Cap PO TID 10/23/17 Rx Klor-Con M20 (Potassium Chloride) 20 Meq Tab.er.prt 20 Meq PO DAILYWBKFT 10/23/17 Rx Culturelle (Lactobacillus Rhamnosus Gg) 1 Each Cap.sprink 1 Cap PO BID 10/23/17 Rx Furosemide 40 Mg Tablet 40 Mg PO DAILY 10/23/17 Rx Calcitriol 0.25 Mcg Capsule 0.25 Mcg PO DAILY 10/23/17 Rx Calcitriol 0.25 Mcg Capsule 10/20/17 Reported Metolazone 5 Mg Tablet 07/28/17 Reported Aldactone (Spironolactone) 25 Mg Tablet 1 Tab PO DAILY 07/01/17 Rx Methotrexate (Methotrexate Sodium) 2.5 Mg Tablet 7 Tab PO Saturday06/23/17 Reported [hydroxyl-chloroquine] 200 Mg PO DAILY08 05/18/17 Reported Calcium + Vitamin D Tablet (Calcium Carbonate/Vitamin D3) 1 Each Tablet 1 Each PO BID 05/18/17 Reported Claritin (Loratadine) 10 Mg Tablet 1 Tab PO DAILY PRN 05/18/17 Reported Coumadin (Warfarin Sodium) 6 Mg Tablet 6 Mg PO TU,WE,TH,SA,DUNCAN 05/18/17 Reported Acetaminophen 500 Mg Tablet 1 Tab PO PRN Q6HRS PRN 03/28/16 Reported Mucinex Dm Er 600-30 Mg Tablet (Guaifenesin/Dextromethorphan) 1 Each Tab.er.12h 1 Tab PO PRN Q12HRS 03/28/16 Reported Trazodone Hcl 50 Mg Tablet 25 Mg PO HS 03/28/16 Reported Propafenone Hcl 150 Mg Tablet 150 Mg PO BID 03/28/16 Reported Systane 0.3-0.4% Eye Drops (Propylene Glycol/Peg 400/Pf) 1 Each Droperette 1 Each OP DAILY 12/26/15 Reported Xanax (Alprazolam) 0.25 Mg Tablet 1 Tab PO PRN TID PRN 12/23/15 Reported Biotin 1 Mg Capsule 1,000 Mg PO BID 12/23/15 Reported [lutein] 1 Tab BID 12/23/15 Reported [Iron ] 1 Tab DAILY 12/23/15 Reported Omeprazole 40 Mg Capsule.dr 40 Mg PO DAILY 11/28/13 Reported Tramadol Hcl 50 Mg Tablet 50 Mg PO PRN Q6HRS PRN 11/28/13 Reported Fish Oil 1,000 Mg Softgel ([place]-3 Fatty Acids/Fish Oil) 1 Each Capsule 1 Each PO DAILY 11/28/13 Reported Allopurinol 100 Mg Tablet 100 Mg PO DAILY 11/28/13 Reported Paxil (Paroxetine Hcl) 40 Mg Tablet 20 Mg PO DAILY 11/28/13 Reported Levothyroxine Sodium 100 Mcg Tablet 100 Mcg PO DAILY 11/28/13 Reported Impression . 1. Subjective dyspnea. Clinically, she appears to be doing well. There is no infiltrate seen on the chest x-ray. The patient is already on anticoagulation and clinically, I do not suspect thromboembolic disease in the setting of a therapeutic INR. At this point, I do not see any further workup and we will monitor clinically. 2. 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 Chest x-ray is clear. 3. Lower extremity cellulitis. Venous Dopplers showing no evidence of deep venous thrombosis. 4. suspect anxiety disorder Plan . 1. respiratory status stable 2. Continue anticoagulation per PCP. 3. Antibiotic per Infectious Disease. 4. PRN bronchodilators. 5. No further pulmonary workup at this point. will see prn GUNNAR RAND MD Nov 17, 2017 10:27
[2017-11-17 11:00] VITALS: BP 103/55
[2017-11-17] MEDS: cefTRIAXone IV Push 2 GM VIAL. IVP SCH (11:25)
--- NOTE | 2017-11-17 12:42 | PDOC ---
PROGRESS NOTES Chief Complaint Chief Complaint Right leg pain and swelling. Cellulitis. Renal failure Diabetes Hypothyroidism Anxiety and depression History of Present Illness History of Present Illness Erythema on the lateral side of the right leg has gone down significantly. Continuing to treat cellulitis. VSS. Blood pressure a little low, but patient says that is her normal. Patient reports her nausea has improved since yesterday VSS Patient was up and walking about her room today Vitals Vitals Vital Signs Date Time Temp Pulse Resp B/P (MAP) Pulse Ox O2 Delivery O2 Flow Rate FiO2 11/17/17 11:00 97.9 62 20 103/55 (71) 98 Room Air 97.9 Physical Exam General: Alert, Oriented X3, Cooperative Heart: Regular rate, Normal S1, Normal S2, Other (irregularly irregular, S1-S2 , no changes in systolic and diastolic murmur.) Lungs: Clear Abdomen: Normal bowel sounds, Soft Extremities: Other (area of excoriation and laceration with redness over the patella.) Labs LABS Laboratory Tests Test 11/17/17 04:20 White Blood Count 7.0 x10^3/uL (4.0-11.0) Red Blood Count 3.35 x10^6/uL (3.50-5.40) Hemoglobin 11.0 g/dL (12.0-15.5) Hematocrit 34.0 % (36.0-47.0) Mean Corpuscular Volume 102 fL (79-100) Mean Corpuscular Hemoglobin 33 pg (25-35) Mean Corpuscular Hemoglobin Concent 32 g/dL (31-37) Red Cell Distribution Width 19.7 % (11.5-14.5) Platelet Count 169 x10^3/uL (140-400) Neutrophils (%) (Auto) 85 % (31-73) Lymphocytes (%) (Auto) 13 % (24-48) Monocytes (%) (Auto) 2 % (0-9) Eosinophils (%) (Auto) 0 % (0-3) Basophils (%) (Auto) 0 % (0-3) Neutrophils # (Auto) 6.0 x10^3uL (1.8-7.7) Lymphocytes # (Auto) 0.9 x10^3/uL (1.0-4.8) Monocytes # (Auto) 0.1 x10^3/uL (0.0-1.1) Eosinophils # (Auto) 0.0 x10^3/uL (0.0-0.7) Basophils # (Auto) 0.0 x10^3/uL (0.0-0.2) Prothrombin Time 29.9 SEC (11.7-14.0) Prothromb Time International Ratio 3.1 (0.8-1.1) Sodium Level 142 mmol/L (136-145) Potassium Level 4.2 mmol/L (3.5-5.1) Chloride Level 107 mmol/L (98-107) Carbon Dioxide Level 29 mmol/L (21-32) Anion Gap 6 (6-14) Blood Urea Nitrogen 23 mg/dL (7-20) Creatinine 1.3 mg/dL (0.6-1.0) Estimated GFR (Cockcroft-Gault) 39.7 Glucose Level 77 mg/dL (70-99) Calcium Level 8.2 mg/dL (8.5-10.1) Review of Systems Review of Systems Denies abdominal pain Denies dyspnea Assessment and Plan Assessmemt and Plan Problems Medical Problems: (1) Cellulitis of right lower extremity Status: Acute (2) Cellulitis of right lower extremity without foot Status: Acute Assessment Right leg pain and swelling. Cellulitis. Renal failure Diabetes Hypothyroidism Anxiety and depression Plan Continue antibiotics per ID Await cultures DC disposition pending Home meds PT/OT Problems: Comment Review of Relevant I have reviewed the following items leila (where applicable) has been applied. Labs Laboratory Tests Test 11/15/17 14:45 11/15/17 15:10 11/16/17 05:00 11/17/17 04:20 Estimated GFR (Non- 41 (>59) Ferritin 147 ng/mL (8-252) EGFR 47 (>59) PTH (Intact) Specimen Description Comment (.) Parathyroid Hormone (Intact) 114 pg/mL (15-65) Calcium (PTH Intact) 8.3 mg/dL (8.7-10.3) Creatinine (PTH Intact) 1.26 mg/dL (0.57-1.00) Phosphorus (PTH Intact) 2.7 mg/dL (2.5-4.5) Iron Level 48 ug/dL (50-170) Total Iron Binding Capacity 233 ug/dL (250-450) Iron Saturation 21 % (15-34) White Blood Count 8.4 x10^3/uL (4.0-11.0) 7.0 x10^3/uL (4.0-11.0) Red Blood Count 3.03 x10^6/uL (3.50-5.40) 3.35 x10^6/uL (3.50-5.40) Hemoglobin 10.1 g/dL (12.0-15.5) 11.0 g/dL (12.0-15.5) Hematocrit 30.7 % (36.0-47.0) 34.0 % (36.0-47.0) Mean Corpuscular Volume 101 fL (79-100) 102 fL (79-100) Mean Corpuscular Hemoglobin 33 pg (25-35) 33 pg (25-35) Mean Corpuscular Hemoglobin Concent 33 g/dL (31-37) 32 g/dL (31-37) Red Cell Distribution Width 20.0 % (11.5-14.5) 19.7 % (11.5-14.5) Platelet Count 138 x10^3/uL (140-400) 169 x10^3/uL (140-400) Neutrophils (%) (Auto) 90 % (31-73) 85 % (31-73) Lymphocytes (%) (Auto) 9 % (24-48) 13 % (24-48) Monocytes (%) (Auto) 1 % (0-9) 2 % (0-9) Eosinophils (%) (Auto) 0 % (0-3) 0 % (0-3) Basophils (%) (Auto) 0 % (0-3) 0 % (0-3) Neutrophils # (Auto) 7.5 x10^3uL (1.8-7.7) 6.0 x10^3uL (1.8-7.7) Lymphocytes # (Auto) 0.7 x10^3/uL (1.0-4.8) 0.9 x10^3/uL (1.0-4.8) Monocytes # (Auto) 0.1 x10^3/uL (0.0-1.1) 0.1 x10^3/uL (0.0-1.1) Eosinophils # (Auto) 0.0 x10^3/uL (0.0-0.7) 0.0 x10^3/uL (0.0-0.7) Basophils # (Auto) 0.0 x10^3/uL (0.0-0.2) 0.0 x10^3/uL (0.0-0.2) Segmented Neutrophils % 89 % (35-66) Band Neutrophils % 1 % (0-9) Lymphocytes % 9 % (24-48) Monocytes % 1 % (0-10) Toxic Granulation Present Platelet Estimate Decreased (ADEQUATE) Anisocytosis Present Prothrombin Time 22.7 SEC (11.7-14.0) 29.9 SEC (11.7-14.0) Prothromb Time International Ratio 2.2 (0.8-1.1) 3.1 (0.8-1.1) Sodium Level 143 mmol/L (136-145) 142 mmol/L (136-145) Potassium Level 3.6 mmol/L (3.5-5.1) 4.2 mmol/L (3.5-5.1) Chloride Level 106 mmol/L (98-107) 107 mmol/L (98-107) Carbon Dioxide Level 28 mmol/L (21-32) 29 mmol/L (21-32) Anion Gap 9 (6-14) 6 (6-14) Blood Urea Nitrogen 30 mg/dL (7-20) 23 mg/dL (7-20) Creatinine 1.3 mg/dL (0.6-1.0) 1.3 mg/dL (0.6-1.0) Estimated GFR (Cockcroft-Gault) 39.7 39.7 Glucose Level 73 mg/dL (70-99) 77 mg/dL (70-99) Calcium Level 8.0 mg/dL (8.5-10.1) 8.2 mg/dL (8.5-10.1) Laboratory Tests Test 11/17/17 04:20 White Blood Count 7.0 x10^3/uL (4.0-11.0) Red Blood Count 3.35 x10^6/uL (3.50-5.40) Hemoglobin 11.0 g/dL (12.0-15.5) Hematocrit 34.0 % (36.0-47.0) Mean Corpuscular Volume 102 fL (79-100) Mean Corpuscular Hemoglobin 33 pg (25-35) Mean Corpuscular Hemoglobin Concent 32 g/dL (31-37) Red Cell Distribution Width 19.7 % (11.5-14.5) Platelet Count 169 x10^3/uL (140-400) Neutrophils (%) (Auto) 85 % (31-73) Lymphocytes (%) (Auto) 13 % (24-48) Monocytes (%) (Auto) 2 % (0-9) Eosinophils (%) (Auto) 0 % (0-3) Basophils (%) (Auto) 0 % (0-3) Neutrophils # (Auto) 6.0 x10^3uL (1.8-7.7) Lymphocytes # (Auto) 0.9 x10^3/uL (1.0-4.8) Monocytes # (Auto) 0.1 x10^3/uL (0.0-1.1) Eosinophils # (Auto) 0.0 x10^3/uL (0.0-0.7) Basophils # (Auto) 0.0 x10^3/uL (0.0-0.2) Prothrombin Time 29.9 SEC (11.7-14.0) Prothromb Time International Ratio 3.1 (0.8-1.1) Sodium Level 142 mmol/L (136-145) Potassium Level 4.2 mmol/L (3.5-5.1) Chloride Level 107 mmol/L (98-107) Carbon Dioxide Level 29 mmol/L (21-32) Anion Gap 6 (6-14) Blood Urea Nitrogen 23 mg/dL (7-20) Creatinine 1.3 mg/dL (0.6-1.0) Estimated GFR (Cockcroft-Gault) 39.7 Glucose Level 77 mg/dL (70-99) Calcium Level 8.2 mg/dL (8.5-10.1) Microbiology 11/15/17 Blood Culture - Preliminary, Resulted NO GROWTH AFTER 1 DAY Medications Current Medications Aspirin (Children'S Aspirin) 324 mg 1X ONCE PO ; Start 11/13/17 at 17:15; Stop 11/13/17 at 17:16; Status DC Vancomycin HCl (Vanco Per Pharmacy) 1 each PRN DAILY PRN MC SEE COMMENTS Last administered on 11/13/17t 18:43; Start 11/13/17 at 17:15; Stop 11/14/17 at 10 :28; Status DC Ondansetron HCl (Zofran) 4 mg PRN Q8HRS PRN IV NAUSEA/VOMITING; Start at 17:15; Stop 11/14/17 at 08:38; Status DC Sodium Chloride 1,000 ml @ 100 mls/hr Q10H IV Last administered on 11/14/17 03:13; Start 11/13/17 at 17:13; Stop 11/14/17 at 17:12; Status DC Vancomycin HCl 1.25 gm/Sodium Chloride 250 ml @ 166.667 mls/hr 1X ONCE IV Last administered on 11/13/17 18:00; Start 11/13/17 at 18:00; Stop 11/13/17 at 19:29; Status DC Acetaminophen (Tylenol) 650 mg 1X ONCE PO Last administered on 11/13/17 18: 40; Start 11/13/17 at 18:15; Stop 11/13/17 at 18:16; Status DC Vancomycin HCl 750 mg/Sodium Chloride 250 ml @ 250 mls/hr Q24H IV ; Start at 18:00; Stop 11/14/17 at 18:00; Status DC Vancomycin HCl 1 each 1X ONCE MC ; Start 11/15/17 at 17:30; Stop 11/15/17 at 17:30; Status DC Acetaminophen (Tylenol) 500 mg PRN Q6HRS PRN PO MILD PAIN / TEMP Last administered on 11/14/17 21:39; Start 11/13/17 at 23:15 Alprazolam (Xanax) 0.25 mg PRN TID PRN PO ANXIETY / AGITATION Last administered on 11/17/17 08:55; Start 11/13/17 at 23:15 Tramadol HCl (Ultram) 50 mg PRN Q6HRS PRN PO MODERATE PAIN Last administered on 11/14/17 09:22; Start 11/13/17 at 23:15; Stop 11/14/17 at 10:09; Status DC Trazodone HCl (Desyrel) 25 mg HS PO Last administered on 11/16/17 21:26; Start 11/13/17 at 23:30 Lactobacillus Rhamnosus (Culturelle) 1 cap BID PO ; Start 11/14/17 at 09:00; Stop 11/14/17 at 10:32; Status DC Ondansetron HCl (Zofran) 4 mg PRN Q6HRS PRN IV NAUSEA/VOMITING; Start at 08:45; Stop 11/15/17 at 08:44; Status DC Acetaminophen (Tylenol) 650 mg PRN Q6HRS PRN PO pain Last administered on 11/17 04:09; Start 11/14/17 at 08:45 Allopurinol (Zyloprim) 100 mg DAILY PO Last administered on 11/17/17 08:53; Start 11/14/17 at 09:00 Calcitriol (Rocaltrol) 0.25 mcg DAILY PO Last administered on 11/17/17 08:52 ; Start 11/14/17 at 09:00 Furosemide (Lasix) 40 mg DAILY PO Last administered on 11/17/17 08:51; Start 11/14/17 at 09:00 Guaifenesin (MUCINEX ER with DM) 1 tab PRN Q12HRS PRN PO COUGH; Start at 08:45 Lactobacillus Rhamnosus (Culturelle) 1 cap BID PO Last administered on 08:51; Start 11/14/17 at 09:00 Levothyroxine Sodium (Synthroid) 100 mcg DAILY07 PO Last administered on 05:04; Start 11/14/17 at 10:30 Potassium Chloride (Klor-Con) 20 meq DAILYWBKFT PO Last administered on 09:23; Start 11/14/17 at 08:00; Stop 11/14/17 at 11:52; Status DC Propafenone HCl (Rythmol) 150 mg BID PO Last administered on 11/17/17 08:53; Start 11/14/17 at 09:00 Spironolactone (Aldactone) 25 mg DAILY PO Last administered on 11/14/17 09:23 ; Start 11/14/17 at 09:00; Stop 11/14/17 at 11:51; Status DC Non-Formulary Medication 1,000 mg BID PO ; Start 11/14/17 at 09:00; Status UNV Calcium/Vitamin D (Oscal D 500mg/ 200uts) 1 tab BIDWMEALS PO Last administered on 11/17/17 08:49; Start 11/14/17 at 09:00 Cetirizine HCl (ZyrTEC) 10 mg DAILY PO Last administered on 11/14/17 12:13; Start 11/14/17 at 10:00 Fish Oil (Fish Oil) 1,000 mg DAILY PO Last administered on 11/17/17 08:51; Start 11/14/17 at 10:00 Pantoprazole Sodium (Protonix) 40 mg DAILYAC PO Last administered on 05:04; Start 11/14/17 at 11:30 Paroxetine HCl (Paxil) 20 mg DAILY PO Last administered on 11/17/17 08:52; Start 11/14/17 at 11:00 Artificial Tears (Artificial Tears) 1 drop DAILY OU Last administered on 08:50; Start 11/14/17 at 10:30 Hydroxychloroquine Sulfate (Plaquenil) 200 mg DAILY08 PO Last administered on 11/17/17 08:50; Start 11/14/17 at 11:00 Ferrous Sulfate (Feosol) 325 mg DAILYWBKFT PO Last administered on 11/17/17 08:47; Start 11/14/17 at 12:00 Metolazone (Zaroxolyn) 5 mg DAILY PO Last administered on 11/14/17 09:24; Start 11/14/17 at 09:00; Stop 11/14/17 at 11:47; Status DC Tramadol HCl (Ultram) 50 mg PRN Q6HRS PRN PO MODERATE - SEVERE PAIN Last administered on 11/17/17 08:55; Start 11/14/17 at 08:45 Warfarin Sodium (Coumadin Per Pharmacy) 1 each PRN DAILY PRN MC SEE COMMENTS Last administered on 11/16/17 13:54; Start 11/14/17 at 08:45 Linezolid (Zyvox) 600 mg BID PO ; Start 11/14/17 at 21:00; Stop 11/14/17 at 21 :00; Status DC Cefazolin Sodium 1 gm/Dextrose 50 ml @ 100 mls/hr Q8HRS IV ; Start 11/14/17 at 14:00; Stop 11/14/17 at 14:00; Status DC Cefazolin Sodium (Ancef) 1 gm Q8HRS IVP ; Start 11/14/17 at 11:00; Stop at 11:00; Status DC Vancomycin HCl (Vanco Per Pharmacy) 1 each PRN DAILY PRN MC SEE COMMENTS Last administered on 11/14/17 11:21; Start 11/14/17 at 10:45; Stop 11/15/17 at 13 :47; Status DC Ceftriaxone Sodium 2 gm/ Dextrose 100 ml @ 200 mls/hr Q24H IV ; Start at 10:45; Stop 11/14/17 at 10:45; Status DC Ceftriaxone Sodium (Rocephin) 1 gm Q24H IVP ; Start 11/14/17 at 11:00; Status Cancel Ceftriaxone Sodium (Rocephin) 2 gm Q24H IVP Last administered on 11/17/17 11: 25; Start 11/14/17 at 11:00 Vancomycin HCl 750 mg/Sodium Chloride 250 ml @ 250 mls/hr Q24H IV Last administered on 11/14/17 16:53; Start 11/14/17 at 18:00; Stop 11/15/17 at 13 :44; Status DC Vancomycin HCl 1 each 1X ONCE MC ; Start 11/15/17 at 17:30; Stop 11/15/17 at 17:30; Status DC Warfarin Sodium (Coumadin - No Dose Today) 1 each 1X WARF ONCE MC ; Start at 16:00; Stop 11/14/17 at 16:01; Status Cancel Metolazone (Zaroxolyn) 5 mg QMWF PO Last administered on 11/15/17 16:05; Start 11/15/17 at 16:00 Spironolactone (Aldactone) 50 mg DAILY PO Last administered on 11/17/17 08:50 ; Start 11/15/17 at 09:00 Potassium Chloride (Klor-Con) 60 meq BIDWMEALS PO Last administered on 08:48; Start 11/14/17 at 17:00 Methotrexate (Rheumatrex) 17.5 mg QWE PO ; Start 11/20/17 at 16:00 Warfarin Sodium (Coumadin) 3 mg 1X WARF ONCE PO Last administered on 16:45; Start 11/14/17 at 16:00; Stop 11/14/17 at 16:01; Status DC Vitamin A/Vitamin D (Vitamin A & D Ointment) 1 nelli PRN Q1HR PRN TP SKIN PROTECTION Last administered on 11/17/17 08:56; Start 11/14/17 at 14:00 Potassium Chloride 100 ml @ 100 mls/hr Q1H IV ; Start 11/15/17 at 06:00; Stop 11/15/17 at 07:59; Status UNV Potassium Chloride (KCl Oral Soln) 20 meq 1X ONCE PO Last administered on 06:35; Start 11/15/17 at 06:30; Stop 11/15/17 at 06:31; Status DC Linezolid (Zyvox) 600 mg BID PO Last administered on 11/17/17 08:54; Start 11/15/17 at 14:00 Warfarin Sodium (Coumadin) 6 mg 1X WARF ONCE PO Last administered on 16:06; Start 11/15/17 at 16:00; Stop 11/15/17 at 16:01; Status DC Ondansetron HCl (Zofran) 4 mg PRN Q6HRS PRN IV NAUSEA/VOMITING; Start at 10:30 Warfarin Sodium (Coumadin) 6 mg 1X WARF ONCE PO Last administered on 17:18; Start 11/16/17 at 16:00; Stop 11/16/17 at 16:01; Status DC Active Scripts Active Keflex (Cephalexin) 250 Mg Capsule 1 Cap PO TID Klor-Con M20 (Potassium Chloride) 20 Meq Tab.er.prt 20 Meq PO DAILYWBKFT Culturelle (Lactobacillus Rhamnosus Gg) 1 Each Cap.sprink 1 Cap PO BID Furosemide 40 Mg Tablet 40 Mg PO DAILY Calcitriol 0.25 Mcg Capsule 0.25 Mcg PO DAILY Aldactone (Spironolactone) 25 Mg Tablet 1 Tab PO DAILY Reported Calcitriol 0.25 Mcg Capsule Metolazone 5 Mg Tablet Methotrexate (Methotrexate Sodium) 2.5 Mg Tablet 7 Tab PO SATURDAY [hydroxyl-chloroquine] 200 Mg PO DAILY08 Calcium + Vitamin D Tablet (Calcium Carbonate/Vitamin D3) 1 Each Tablet 1 Each PO BID Claritin (Loratadine) 10 Mg Tablet 1 Tab PO DAILY PRN Coumadin (Warfarin Sodium) 6 Mg Tablet 6 Mg PO ,,,SA,DUNCAN Acetaminophen 500 Mg Tablet 1 Tab PO PRN Q6HRS PRN Mucinex Dm Er 600-30 Mg Tablet (Guaifenesin/Dextromethorphan) 1 Each Tab.er.12h 1 Tab PO PRN Q12HRS Trazodone Hcl 50 Mg Tablet 25 Mg PO HS Propafenone Hcl 150 Mg Tablet 150 Mg PO BID Systane 0.3-0.4% Eye Drops (Propylene Glycol/Peg 400/Pf) 1 Each Droperette 1 Each OP DAILY Xanax (Alprazolam) 0.25 Mg Tablet 1 Tab PO PRN TID PRN Biotin 1 Mg Capsule 1,000 Mg PO BID [lutein] 1 Tab BID [Iron ] 1 Tab DAILY Omeprazole 40 Mg Capsule.dr 40 Mg PO DAILY Tramadol Hcl 50 Mg Tablet 50 Mg PO PRN Q6HRS PRN Fish Oil 1,000 Mg Softgel (Put In Bay-3 Fatty Acids/Fish Oil) 1 Each Capsule 1 Each PO DAILY Allopurinol 100 Mg Tablet 100 Mg PO DAILY Paxil (Paroxetine Hcl) 40 Mg Tablet 20 Mg PO DAILY Levothyroxine Sodium 100 Mcg Tablet 100 Mcg PO DAILY Vitals/I & O Vital Sign - Last 24 Hours 11/16/17 11/16/17 11/16/17 11/16/17 12:55 14:44 19:00 20:00 Temp 96.5 96.6 96.5 96.6 Pulse 68 61 Resp 20 20 20 B/P (MAP) 116/53 (74) 99/46 (63) Pulse Ox 94 94 99 O2 Delivery Room Air Room Air Room Air Room Air 11/16/17 11/16/17 11/16/17 11/17/17 21:25 21:25 23:00 03:03 Temp 98.0 97.6 98.0 97.6 Pulse 61 59 72 Resp 18 20 20 B/P (MAP) 99/46 103/59 (74) 113/66 (82) Pulse Ox 99 97 99 O2 Delivery Room Air Room Air Room Air 11/17/17 11/17/17 11/17/17 11/17/17 07:00 08:00 08:53 08:55 Temp 97.7 97.7 Pulse 73 73 Resp 20 20 B/P (MAP) 109/54 (72) 109/54 Pulse Ox 100 99 O2 Delivery Room Air Room Air Room Air 11/17/17 11/17/17 09:55 11:00 Temp 97.9 97.9 Pulse 62 Resp 20 20 B/P (MAP) 103/55 (71) Pulse Ox 99 98 O2 Delivery Room Air Room Air Intake and Output 11/16/17 11/16/17 11/17/17 15:00 23:00 07:00 Intake Total 600 ml Balance 600 ml BRITTA MARTINEZ III DO Nov 17, 2017 12:42
[2017-11-17 13:10] LABS: TOTAL SERUM CREATININE 1.19 mg/dL (0.57-1.00)
--- NOTE | 2017-11-17 13:20 | PDOC ---
PROGRESS NOTES Subjective Subjective Patient complains of pain and tenderness of the knee and the leg. No cardiac complaints Objective Objective Vital Signs Date Time Temp Pulse Resp B/P (MAP) Pulse Ox O2 Delivery O2 Flow Rate FiO2 11/17/17 11:00 97.9 62 20 103/55 (71) 98 Room Air 97.9 Intake and Output 11/17/17 07:00 Intake Total 600 ml Balance 600 ml Intake Oral 600 ml # Voids 9 # Bowel Movements 2 Physical Exam Physical Exam No significant changes in cardiac exam. There is still tenderness and erythema around the area of the knee and the calf Assessment Assessment I agree with present plan. Continue with the antibiotics. Problems Medical Problems: (1) Cellulitis of right lower extremity Status: Acute (2) Cellulitis of right lower extremity without foot Status: Acute Comment Review of Relevant I have reviewed the following items leila (where applicable) has been applied. Labs Laboratory Tests Test 11/15/17 14:45 11/15/17 15:10 11/16/17 05:00 11/16/17 15:00 Estimated GFR (Non- 41 (>59) 44 (>59) Ferritin 147 ng/mL (8-252) EGFR 47 (>59) 51 (>59) PTH (Intact) Specimen Description Comment (.) Parathyroid Hormone (Intact) 114 pg/mL (15-65) Calcium (PTH Intact) 8.3 mg/dL (8.7-10.3) Creatinine (PTH Intact) 1.26 mg/dL (0.57-1.00) Phosphorus (PTH Intact) 2.7 mg/dL (2.5-4.5) Iron Level 48 ug/dL (50-170) Total Iron Binding Capacity 233 ug/dL (250-450) Iron Saturation 21 % (15-34) White Blood Count 8.4 x10^3/uL (4.0-11.0) Red Blood Count 3.03 x10^6/uL (3.50-5.40) Hemoglobin 10.1 g/dL (12.0-15.5) Hematocrit 30.7 % (36.0-47.0) Mean Corpuscular Volume 101 fL (79-100) Mean Corpuscular Hemoglobin 33 pg (25-35) Mean Corpuscular Hemoglobin Concent 33 g/dL (31-37) Red Cell Distribution Width 20.0 % (11.5-14.5) Platelet Count 138 x10^3/uL (140-400) Neutrophils (%) (Auto) 90 % (31-73) Lymphocytes (%) (Auto) 9 % (24-48) Monocytes (%) (Auto) 1 % (0-9) Eosinophils (%) (Auto) 0 % (0-3) Basophils (%) (Auto) 0 % (0-3) Neutrophils # (Auto) 7.5 x10^3uL (1.8-7.7) Lymphocytes # (Auto) 0.7 x10^3/uL (1.0-4.8) Monocytes # (Auto) 0.1 x10^3/uL (0.0-1.1) Eosinophils # (Auto) 0.0 x10^3/uL (0.0-0.7) Basophils # (Auto) 0.0 x10^3/uL (0.0-0.2) Segmented Neutrophils % 89 % (35-66) Band Neutrophils % 1 % (0-9) Lymphocytes % 9 % (24-48) Monocytes % 1 % (0-10) Toxic Granulation Present Platelet Estimate Decreased (ADEQUATE) Anisocytosis Present Prothrombin Time 22.7 SEC (11.7-14.0) Prothromb Time International Ratio 2.2 (0.8-1.1) Sodium Level 143 mmol/L (136-145) Potassium Level 3.6 mmol/L (3.5-5.1) Chloride Level 106 mmol/L (98-107) Carbon Dioxide Level 28 mmol/L (21-32) Anion Gap 9 (6-14) Blood Urea Nitrogen 30 mg/dL (7-20) Creatinine 1.3 mg/dL (0.6-1.0) 1.19 mg/dL (0.57-1.00) Estimated GFR (Cockcroft-Gault) 39.7 Glucose Level 73 mg/dL (70-99) Calcium Level 8.0 mg/dL (8.5-10.1) Urine Protein 4.1 mg/dL (Not Estab.) Urine Creatinine 24 Hour 462 mg/24 hr (800-1800) Creatinine Clearance 24 Hour 27 mL/min (88-128) Urine Protein 24 Hr Calculated 86 mg/24 hr (30-150) Test 11/17/17 04:20 White Blood Count 7.0 x10^3/uL (4.0-11.0) Red Blood Count 3.35 x10^6/uL (3.50-5.40) Hemoglobin 11.0 g/dL (12.0-15.5) Hematocrit 34.0 % (36.0-47.0) Mean Corpuscular Volume 102 fL (79-100) Mean Corpuscular Hemoglobin 33 pg (25-35) Mean Corpuscular Hemoglobin Concent 32 g/dL (31-37) Red Cell Distribution Width 19.7 % (11.5-14.5) Platelet Count 169 x10^3/uL (140-400) Neutrophils (%) (Auto) 85 % (31-73) Lymphocytes (%) (Auto) 13 % (24-48) Monocytes (%) (Auto) 2 % (0-9) Eosinophils (%) (Auto) 0 % (0-3) Basophils (%) (Auto) 0 % (0-3) Neutrophils # (Auto) 6.0 x10^3uL (1.8-7.7) Lymphocytes # (Auto) 0.9 x10^3/uL (1.0-4.8) Monocytes # (Auto) 0.1 x10^3/uL (0.0-1.1) Eosinophils # (Auto) 0.0 x10^3/uL (0.0-0.7) Basophils # (Auto) 0.0 x10^3/uL (0.0-0.2) Prothrombin Time 29.9 SEC (11.7-14.0) Prothromb Time International Ratio 3.1 (0.8-1.1) Sodium Level 142 mmol/L (136-145) Potassium Level 4.2 mmol/L (3.5-5.1) Chloride Level 107 mmol/L (98-107) Carbon Dioxide Level 29 mmol/L (21-32) Anion Gap 6 (6-14) Blood Urea Nitrogen 23 mg/dL (7-20) Creatinine 1.3 mg/dL (0.6-1.0) Estimated GFR (Cockcroft-Gault) 39.7 Glucose Level 77 mg/dL (70-99) Calcium Level 8.2 mg/dL (8.5-10.1) Laboratory Tests Test 11/16/17 15:00 11/17/17 04:20 Urine Protein 4.1 mg/dL (Not Estab.) Urine Creatinine 24 Hour 462 mg/24 hr (800-1800) Creatinine Clearance 24 Hour 27 mL/min (88-128) Urine Protein 24 Hr Calculated 86 mg/24 hr (30-150) Creatinine 1.19 mg/dL (0.57-1.00) 1.3 mg/dL (0.6-1.0) Estimated GFR (Non- 44 (>59) EGFR 51 (>59) White Blood Count 7.0 x10^3/uL (4.0-11.0) Red Blood Count 3.35 x10^6/uL (3.50-5.40) Hemoglobin 11.0 g/dL (12.0-15.5) Hematocrit 34.0 % (36.0-47.0) Mean Corpuscular Volume 102 fL (79-100) Mean Corpuscular Hemoglobin 33 pg (25-35) Mean Corpuscular Hemoglobin Concent 32 g/dL (31-37) Red Cell Distribution Width 19.7 % (11.5-14.5) Platelet Count 169 x10^3/uL (140-400) Neutrophils (%) (Auto) 85 % (31-73) Lymphocytes (%) (Auto) 13 % (24-48) Monocytes (%) (Auto) 2 % (0-9) Eosinophils (%) (Auto) 0 % (0-3) Basophils (%) (Auto) 0 % (0-3) Neutrophils # (Auto) 6.0 x10^3uL (1.8-7.7) Lymphocytes # (Auto) 0.9 x10^3/uL (1.0-4.8) Monocytes # (Auto) 0.1 x10^3/uL (0.0-1.1) Eosinophils # (Auto) 0.0 x10^3/uL (0.0-0.7) Basophils # (Auto) 0.0 x10^3/uL (0.0-0.2) Prothrombin Time 29.9 SEC (11.7-14.0) Prothromb Time International Ratio 3.1 (0.8-1.1) Sodium Level 142 mmol/L (136-145) Potassium Level 4.2 mmol/L (3.5-5.1) Chloride Level 107 mmol/L (98-107) Carbon Dioxide Level 29 mmol/L (21-32) Anion Gap 6 (6-14) Blood Urea Nitrogen 23 mg/dL (7-20) Estimated GFR (Cockcroft-Gault) 39.7 Glucose Level 77 mg/dL (70-99) Calcium Level 8.2 mg/dL (8.5-10.1) Microbiology 11/15/17 Blood Culture - Preliminary, Resulted NO GROWTH AFTER 1 DAY Medications Current Medications Aspirin (Children'S Aspirin) 324 mg 1X ONCE PO ; Start 11/13/17 at 17:15; Stop 11/13/17 at 17:16; Status DC Vancomycin HCl (Vanco Per Pharmacy) 1 each PRN DAILY PRN MC SEE COMMENTS Last administered on 11/13/17 18:43; Start 11/13/17 at 17:15; Stop 11/14/17 at 10 :28; Status DC Ondansetron HCl (Zofran) 4 mg PRN Q8HRS PRN IV NAUSEA/VOMITING; Start at 17:15; Stop 11/14/17 at 08:38; Status DC Sodium Chloride 1,000 ml @ 100 mls/hr Q10H IV Last administered on 11/14/17 03:13; Start 11/13/17 at 17:13; Stop 11/14/17 at 17:12; Status DC Vancomycin HCl 1.25 gm/Sodium Chloride 250 ml @ 166.667 mls/hr 1X ONCE IV Last administered on 11/13/17 18:00; Start 11/13/17 at 18:00; Stop 11/13/17 at 19:29; Status DC Acetaminophen (Tylenol) 650 mg 1X ONCE PO Last administered on 11/13/17 18: 40; Start 11/13/17 at 18:15; Stop 11/13/17 at 18:16; Status DC Vancomycin HCl 750 mg/Sodium Chloride 250 ml @ 250 mls/hr Q24H IV ; Start at 18:00; Stop 11/14/17 at 18:00; Status DC Vancomycin HCl 1 each 1X ONCE MC ; Start 11/15/17 at 17:30; Stop 11/15/17 at 17:30; Status DC Acetaminophen (Tylenol) 500 mg PRN Q6HRS PRN PO MILD PAIN / TEMP Last administered on 11/14/17 21:39; Start 11/13/17 at 23:15 Alprazolam (Xanax) 0.25 mg PRN TID PRN PO ANXIETY / AGITATION Last administered on 11/17/17 08:55; Start 11/13/17 at 23:15 Tramadol HCl (Ultram) 50 mg PRN Q6HRS PRN PO MODERATE PAIN Last administered on 11/14/17 09:22; Start 11/13/17 at 23:15; Stop 11/14/17 at 10:09; Status DC Trazodone HCl (Desyrel) 25 mg HS PO Last administered on 11/16/17 21:26; Start 11/13/17 at 23:30 Lactobacillus Rhamnosus (Culturelle) 1 cap BID PO ; Start 11/14/17 at 09:00; Stop 11/14/17 at 10:32; Status DC Ondansetron HCl (Zofran) 4 mg PRN Q6HRS PRN IV NAUSEA/VOMITING; Start at 08:45; Stop 11/15/17 at 08:44; Status DC Acetaminophen (Tylenol) 650 mg PRN Q6HRS PRN PO pain Last administered on 11/17 04:09; Start 11/14/17 at 08:45 Allopurinol (Zyloprim) 100 mg DAILY PO Last administered on 11/17/17 08:53; Start 11/14/17 at 09:00 Calcitriol (Rocaltrol) 0.25 mcg DAILY PO Last administered on 11/17/17 08:52 ; Start 11/14/17 at 09:00 Furosemide (Lasix) 40 mg DAILY PO Last administered on 11/17/17 08:51; Start 11/14/17 at 09:00 Guaifenesin (MUCINEX ER with DM) 1 tab PRN Q12HRS PRN PO COUGH; Start at 08:45 Lactobacillus Rhamnosus (Culturelle) 1 cap BID PO Last administered on 08:51; Start 11/14/17 at 09:00 Levothyroxine Sodium (Synthroid) 100 mcg DAILY07 PO Last administered on 05:04; Start 11/14/17 at 10:30 Potassium Chloride (Klor-Con) 20 meq DAILYWBKFT PO Last administered on 09:23; Start 11/14/17 at 08:00; Stop 11/14/17 at 11:52; Status DC Propafenone HCl (Rythmol) 150 mg BID PO Last administered on 11/17/17 08:53; Start 11/14/17 at 09:00 Spironolactone (Aldactone) 25 mg DAILY PO Last administered on 11/14/17 09:23 ; Start 11/14/17 at 09:00; Stop 11/14/17 at 11:51; Status DC Non-Formulary Medication 1,000 mg BID PO ; Start 11/14/17 at 09:00; Status UNV Calcium/Vitamin D (Oscal D 500mg/ 200uts) 1 tab BIDWMEALS PO Last administered on 11/17/17 08:49; Start 11/14/17 at 09:00 Cetirizine HCl (ZyrTEC) 10 mg DAILY PO Last administered on 11/14/17 12:13; Start 11/14/17 at 10:00 Fish Oil (Fish Oil) 1,000 mg DAILY PO Last administered on 11/17/17 08:51; Start 11/14/17 at 10:00 Pantoprazole Sodium (Protonix) 40 mg DAILYAC PO Last administered on 05:04; Start 11/14/17 at 11:30 Paroxetine HCl (Paxil) 20 mg DAILY PO Last administered on 11/17/17 08:52; Start 11/14/17 at 11:00 Artificial Tears (Artificial Tears) 1 drop DAILY OU Last administered on 08:50; Start 11/14/17 at 10:30 Hydroxychloroquine Sulfate (Plaquenil) 200 mg DAILY08 PO Last administered on 11/17/17 08:50; Start 11/14/17 at 11:00 Ferrous Sulfate (Feosol) 325 mg DAILYWBKFT PO Last administered on 11/17/17 08:47; Start 11/14/17 at 12:00 Metolazone (Zaroxolyn) 5 mg DAILY PO Last administered on 11/14/17 09:24; Start 11/14/17 at 09:00; Stop 11/14/17 at 11:47; Status DC Tramadol HCl (Ultram) 50 mg PRN Q6HRS PRN PO MODERATE - SEVERE PAIN Last administered on 11/17/17 08:55; Start 11/14/17 at 08:45 Warfarin Sodium (Coumadin Per Pharmacy) 1 each PRN DAILY PRN MC SEE COMMENTS Last administered on 11/16/17 13:54; Start 11/14/17 at 08:45 Linezolid (Zyvox) 600 mg BID PO ; Start 11/14/17 at 21:00; Stop 11/14/17 at 21 :00; Status DC Cefazolin Sodium 1 gm/Dextrose 50 ml @ 100 mls/hr Q8HRS IV ; Start 11/14/17 at 14:00; Stop 11/14/17 at 14:00; Status DC Cefazolin Sodium (Ancef) 1 gm Q8HRS IVP ; Start 11/14/17 at 11:00; Stop at 11:00; Status DC Vancomycin HCl (Vanco Per Pharmacy) 1 each PRN DAILY PRN MC SEE COMMENTS Last administered on 11/14/17 11:21; Start 11/14/17 at 10:45; Stop 11/15/17 at 13 :47; Status DC Ceftriaxone Sodium 2 gm/ Dextrose 100 ml @ 200 mls/hr Q24H IV ; Start at 10:45; Stop 11/14/17 at 10:45; Status DC Ceftriaxone Sodium (Rocephin) 1 gm Q24H IVP ; Start 11/14/17 at 11:00; Status Cancel Ceftriaxone Sodium (Rocephin) 2 gm Q24H IVP Last administered on 11/17/17 11: 25; Start 11/14/17 at 11:00 Vancomycin HCl 750 mg/Sodium Chloride 250 ml @ 250 mls/hr Q24H IV Last administered on 11/14/17 16:53; Start 11/14/17 at 18:00; Stop 11/15/17 at 13 :44; Status DC Vancomycin HCl 1 each 1X ONCE MC ; Start 11/15/17 at 17:30; Stop 11/15/17 at 17:30; Status DC Warfarin Sodium (Coumadin - No Dose Today) 1 each 1X WARF ONCE MC ; Start at 16:00; Stop 11/14/17 at 16:01; Status Cancel Metolazone (Zaroxolyn) 5 mg QMWF PO Last administered on 11/15/17 16:05; Start 11/15/17 at 16:00 Spironolactone (Aldactone) 50 mg DAILY PO Last administered on 11/17/17 08:50 ; Start 11/15/17 at 09:00 Potassium Chloride (Klor-Con) 60 meq BIDWMEALS PO Last administered on 08:48; Start 11/14/17 at 17:00 Methotrexate (Rheumatrex) 17.5 mg QWE PO ; Start 11/20/17 at 16:00 Warfarin Sodium (Coumadin) 3 mg 1X WARF ONCE PO Last administered on 16:45; Start 11/14/17 at 16:00; Stop 11/14/17 at 16:01; Status DC Vitamin A/Vitamin D (Vitamin A & D Ointment) 1 nelli PRN Q1HR PRN TP SKIN PROTECTION Last administered on 11/17/17 08:56; Start 11/14/17 at 14:00 Potassium Chloride 100 ml @ 100 mls/hr Q1H IV ; Start 11/15/17 at 06:00; Stop 11/15/17 at 07:59; Status UNV Potassium Chloride (KCl Oral Soln) 20 meq 1X ONCE PO Last administered on 06:35; Start 11/15/17 at 06:30; Stop 11/15/17 at 06:31; Status DC Linezolid (Zyvox) 600 mg BID PO Last administered on 11/17/17 08:54; Start 11/15/17 at 14:00 Warfarin Sodium (Coumadin) 6 mg 1X WARF ONCE PO Last administered on 16:06; Start 11/15/17 at 16:00; Stop 11/15/17 at 16:01; Status DC Ondansetron HCl (Zofran) 4 mg PRN Q6HRS PRN IV NAUSEA/VOMITING; Start at 10:30 Warfarin Sodium (Coumadin) 6 mg 1X WARF ONCE PO Last administered on 17:18; Start 11/16/17 at 16:00; Stop 11/16/17 at 16:01; Status DC Active Scripts Active Keflex (Cephalexin) 250 Mg Capsule 1 Cap PO TID Klor-Con M20 (Potassium Chloride) 20 Meq Tab.er.prt 20 Meq PO DAILYWBKFT Culturelle (Lactobacillus Rhamnosus Gg) 1 Each Cap.sprink 1 Cap PO BID Furosemide 40 Mg Tablet 40 Mg PO DAILY Calcitriol 0.25 Mcg Capsule 0.25 Mcg PO DAILY Aldactone (Spironolactone) 25 Mg Tablet 1 Tab PO DAILY Reported Calcitriol 0.25 Mcg Capsule Metolazone 5 Mg Tablet Methotrexate (Methotrexate Sodium) 2.5 Mg Tablet 7 Tab PO SATURDAY [hydroxyl-chloroquine] 200 Mg PO DAILY08 Calcium + Vitamin D Tablet (Calcium Carbonate/Vitamin D3) 1 Each Tablet 1 Each PO BID Claritin (Loratadine) 10 Mg Tablet 1 Tab PO DAILY PRN Coumadin (Warfarin Sodium) 6 Mg Tablet 6 Mg PO ,,,, Acetaminophen 500 Mg Tablet 1 Tab PO PRN Q6HRS PRN Mucinex Dm Er 600-30 Mg Tablet (Guaifenesin/Dextromethorphan) 1 Each Tab.er.12h 1 Tab PO PRN Q12HRS Trazodone Hcl 50 Mg Tablet 25 Mg PO HS Propafenone Hcl 150 Mg Tablet 150 Mg PO BID Systane 0.3-0.4% Eye Drops (Propylene Glycol/Peg 400/Pf) 1 Each Droperette 1 Each OP DAILY Xanax (Alprazolam) 0.25 Mg Tablet 1 Tab PO PRN TID PRN Biotin 1 Mg Capsule 1,000 Mg PO BID [lutein] 1 Tab BID [Iron ] 1 Tab DAILY Omeprazole 40 Mg Capsule.dr 40 Mg PO DAILY Tramadol Hcl 50 Mg Tablet 50 Mg PO PRN Q6HRS PRN Fish Oil 1,000 Mg Softgel ([place]-3 Fatty Acids/Fish Oil) 1 Each Capsule 1 Each PO DAILY Allopurinol 100 Mg Tablet 100 Mg PO DAILY Paxil (Paroxetine Hcl) 40 Mg Tablet 20 Mg PO DAILY Levothyroxine Sodium 100 Mcg Tablet 100 Mcg PO DAILY Vitals/I & O Vital Sign - Last 24 Hours 11/16/17 11/16/17 11/16/17 11/16/17 14:44 19:00 20:00 21:25 Temp 96.5 96.6 96.5 96.6 Pulse 68 61 61 Resp 20 20 B/P (MAP) 116/53 (74) 99/46 (63) 99/46 Pulse Ox 94 99 O2 Delivery Room Air Room Air Room Air 11/16/17 11/16/17 11/17/17 11/17/17 21:25 23:00 03:03 07:00 Temp 98.0 97.6 97.7 98.0 97.6 97.7 Pulse 59 72 73 Resp 18 20 20 20 B/P (MAP) 103/59 (74) 113/66 (82) 109/54 (72) Pulse Ox 99 97 99 100 O2 Delivery Room Air Room Air Room Air Room Air 11/17/17 11/17/17 11/17/17 11/17/17 08:00 08:53 08:55 09:55 Pulse 73 Resp 20 20 B/P (MAP) 109/54 Pulse Ox 99 99 O2 Delivery Room Air Room Air Room Air 11/17/17 11:00 Temp 97.9 97.9 Pulse 62 Resp 20 B/P (MAP) 103/55 (71) Pulse Ox 98 O2 Delivery Room Air Intake and Output 11/16/17 11/16/17 11/17/17 15:00 23:00 07:00 Intake Total 600 ml Balance 600 ml CJ DIAL MD Nov 17, 2017 13:20
[2017-11-17 15:00] VITALS: BP 116/59
[2017-11-17 19:00] VITALS: BP 119/65
[2017-11-17] MEDS: traZODone 50 MG TABLET. PO SCH (20:42)
[2017-11-17 23:00] VITALS: BP 107/54
[2017-11-18 03:00] VITALS: BP 112/66
[2017-11-18] MEDS: ALPRAZolam 0.25 MG TABLET PO PRN ×3 (03:22→20:19)
[2017-11-18] MEDS: traMADol 50 MG TABLET PO PRN ×4 (03:22→21:19)
[2017-11-18 04:46] LABS: BASO # 0.1 x10^3/uL (0.0-0.2); BASO % 1 % (0-3); EOS % 1 % (0-3); HEMATOCRIT 34.7 % (36.0-47.0); HEMOGLOBIN 11.2 g/dL (12.0-15.5); LYMPH % 17 % (24-48); MEAN CORPUSCULAR HEMOGLOBIN 33 pg (25-35); MEAN CORPUSCULAR HGB CONC 32 g/dL (31-37); MEAN CORPUSCULAR VOLUME 102 fL (79-100); MONO % 3 % (0-9); NEUT % 78 % (31-73); PLATELET COUNT 178 x10^3/uL (140-400); RED CELL DISTRIBUTION WIDTH 19.6 % (11.5-14.5); WHITE BLOOD COUNT 5.8 x10^3/uL (4.0-11.0)
[2017-11-18 04:59] LABS: INR 3.7 (0.8-1.1); PROTHROMBIN TIME PATIENT 34.7 SEC (11.7-14.0)
[2017-11-18 05:05] LABS: CALCIUM 8.1 mg/dL (8.5-10.1); CREATININE 1.2 mg/dL (0.6-1.0); GFR 43.6; POTASSIUM 4.4 mmol/L (3.5-5.1)
[2017-11-18] MEDS: LEVOTHYROXINE 100 MCG TABLET PO SCH (05:44)
[2017-11-18 07:32] VITALS: BP 135/75
[2017-11-18] MEDS: SPIRONOLACTONE 25 MG TABLET PO SCH (08:06)
[2017-11-18] MEDS: LINEZOLID 600 MG TABLET PO SCH ×2 (08:06→20:19)
[2017-11-18] MEDS: CALCIUM CARB/VIT D3 500/200 TABLET. PO SCH ×2 (08:06→17:01)
[2017-11-18] MEDS: POLYVINYL ALCOHOL 1.4% OPHTH SOLUTION 15ML BOTTLE. OU SCH (08:06)
[2017-11-18] MEDS: PROPAFENONE 150 MG TABLET. PO SCH ×2 (08:06→20:21)
[2017-11-18] MEDS: ALLOPURINOL 100 MG TABLET. PO SCH (08:07)
[2017-11-18] MEDS: PANTOPRAZOLE 40 MG TABLET.DR. PO SCH (08:07)
[2017-11-18] MEDS: OMEGA-3 FATTY ACIDS/FISH OIL 1,000 MG CAPSULE. PO SCH (08:07)
[2017-11-18] MEDS: FUROSEMIDE 40 MG TABLET. PO SCH (08:07)
[2017-11-18] MEDS: PARoxetine 20 MG TABLET PO SCH (08:07)
[2017-11-18] MEDS: POTASSIUM CHLORIDE 20 MEQ TABLET.ER. PO SCH ×2 (08:07→17:02)
[2017-11-18] MEDS: CETIRIZINE HCL 10 MG TABLET. PO SCH (08:07)
[2017-11-18] MEDS: HYDROXYCHLOROQUINE 200 MG TABLET PO SCH (08:07)
[2017-11-18] MEDS: CALCITRIOL 0.25 MCG CAPSULE. PO SCH (08:08)
[2017-11-18] MEDS: LACTOBACILLUS RHAMNOSUS GG 1 CAPSULE. PO SCH ×2 (08:08→20:22)
[2017-11-18] MEDS: FERROUS SULFATE 325 MG TABLET. PO SCH (08:08)
[2017-11-18] MEDS: ACETAMINOPHEN 325 MG TABLET. PO PRN (09:02)
[2017-11-18] MEDS: VITS A & D/LANOLIN TOPICAL OINTMENT 56GM TUBE. TP PRN ×2 (09:02→20:31)
[2017-11-18 10:30] VITALS: BP 106/62
--- NOTE | 2017-11-18 10:36 | PDOC ---
PROGRESS NOTES Chief Complaint Chief Complaint Right leg pain and swelling. Cellulitis. Renal failure Diabetes Hypothyroidism Anxiety and depression History of Present Illness History of Present Illness Erythema on the lateral side of the right leg has resolved. Awaiting further input from ID VSS. Blood pressure a little low, but patient says that is her normal. Complains of pain in her right leg VSS Patient was up and walking about her room today DC home tomorrow possible Vitals Vitals Vital Signs Date Time Temp Pulse Resp B/P (MAP) Pulse Ox O2 Delivery O2 Flow Rate FiO2 11/18/17 08:06 80 112/66 11/18/17 07:32 97.7 18 100 Room Air 97.7 Physical Exam General: Alert, Oriented X3, Cooperative Heart: Regular rate, Normal S1, Normal S2, Other (irregularly irregular, S1-S2 , no changes in systolic and diastolic murmur.) Lungs: Clear Abdomen: Normal bowel sounds, Soft Extremities: Other (area of excoriation and laceration with redness over the patella.) Labs LABS Laboratory Tests Test 11/18/17 04:05 White Blood Count 5.8 x10^3/uL (4.0-11.0) Red Blood Count 3.40 x10^6/uL (3.50-5.40) Hemoglobin 11.2 g/dL (12.0-15.5) Hematocrit 34.7 % (36.0-47.0) Mean Corpuscular Volume 102 fL (79-100) Mean Corpuscular Hemoglobin 33 pg (25-35) Mean Corpuscular Hemoglobin Concent 32 g/dL (31-37) Red Cell Distribution Width 19.6 % (11.5-14.5) Platelet Count 178 x10^3/uL (140-400) Neutrophils (%) (Auto) 78 % (31-73) Lymphocytes (%) (Auto) 17 % (24-48) Monocytes (%) (Auto) 3 % (0-9) Eosinophils (%) (Auto) 1 % (0-3) Basophils (%) (Auto) 1 % (0-3) Neutrophils # (Auto) 4.5 x10^3uL (1.8-7.7) Lymphocytes # (Auto) 1.0 x10^3/uL (1.0-4.8) Monocytes # (Auto) 0.2 x10^3/uL (0.0-1.1) Eosinophils # (Auto) 0.0 x10^3/uL (0.0-0.7) Basophils # (Auto) 0.1 x10^3/uL (0.0-0.2) Prothrombin Time 34.7 SEC (11.7-14.0) Prothromb Time International Ratio 3.7 (0.8-1.1) Sodium Level 143 mmol/L (136-145) Potassium Level 4.4 mmol/L (3.5-5.1) Chloride Level 107 mmol/L (98-107) Carbon Dioxide Level 28 mmol/L (21-32) Anion Gap 8 (6-14) Blood Urea Nitrogen 20 mg/dL (7-20) Creatinine 1.2 mg/dL (0.6-1.0) Estimated GFR (Cockcroft-Gault) 43.6 Glucose Level 78 mg/dL (70-99) Calcium Level 8.1 mg/dL (8.5-10.1) Review of Systems Review of Systems Denies abdominal pain Denies dyspnea Assessment and Plan Assessmemt and Plan Problems Medical Problems: (1) Cellulitis of right lower extremity Status: Acute (2) Cellulitis of right lower extremity without foot Status: Acute Assessment Right leg pain and swelling. Cellulitis. Renal failure Diabetes Hypothyroidism Anxiety and depression Plan Continue home meds PT/OT Recheck labs Continue antibiotics - ceftriaxone, linezolid DC home tomorrow Appreciate subspecialty Problems: Comment Review of Relevant I have reviewed the following items leila (where applicable) has been applied. Labs Laboratory Tests Test 11/16/17 15:00 11/17/17 04:20 11/18/17 04:05 Urine Protein 4.1 mg/dL (Not Estab.) Urine Creatinine 24 Hour 462 mg/24 hr (800-1800) Creatinine Clearance 24 Hour 27 mL/min (88-128) Urine Protein 24 Hr Calculated 86 mg/24 hr (30-150) Creatinine 1.19 mg/dL (0.57-1.00) 1.3 mg/dL (0.6-1.0) 1.2 mg/dL (0.6-1.0) Estimated GFR (Non- 44 (>59) EGFR 51 (>59) White Blood Count 7.0 x10^3/uL (4.0-11.0) 5.8 x10^3/uL (4.0-11.0) Red Blood Count 3.35 x10^6/uL (3.50-5.40) 3.40 x10^6/uL (3.50-5.40) Hemoglobin 11.0 g/dL (12.0-15.5) 11.2 g/dL (12.0-15.5) Hematocrit 34.0 % (36.0-47.0) 34.7 % (36.0-47.0) Mean Corpuscular Volume 102 fL (79-100) 102 fL (79-100) Mean Corpuscular Hemoglobin 33 pg (25-35) 33 pg (25-35) Mean Corpuscular Hemoglobin Concent 32 g/dL (31-37) 32 g/dL (31-37) Red Cell Distribution Width 19.7 % (11.5-14.5) 19.6 % (11.5-14.5) Platelet Count 169 x10^3/uL (140-400) 178 x10^3/uL (140-400) Neutrophils (%) (Auto) 85 % (31-73) 78 % (31-73) Lymphocytes (%) (Auto) 13 % (24-48) 17 % (24-48) Monocytes (%) (Auto) 2 % (0-9) 3 % (0-9) Eosinophils (%) (Auto) 0 % (0-3) 1 % (0-3) Basophils (%) (Auto) 0 % (0-3) 1 % (0-3) Neutrophils # (Auto) 6.0 x10^3uL (1.8-7.7) 4.5 x10^3uL (1.8-7.7) Lymphocytes # (Auto) 0.9 x10^3/uL (1.0-4.8) 1.0 x10^3/uL (1.0-4.8) Monocytes # (Auto) 0.1 x10^3/uL (0.0-1.1) 0.2 x10^3/uL (0.0-1.1) Eosinophils # (Auto) 0.0 x10^3/uL (0.0-0.7) 0.0 x10^3/uL (0.0-0.7) Basophils # (Auto) 0.0 x10^3/uL (0.0-0.2) 0.1 x10^3/uL (0.0-0.2) Prothrombin Time 29.9 SEC (11.7-14.0) 34.7 SEC (11.7-14.0) Prothromb Time International Ratio 3.1 (0.8-1.1) 3.7 (0.8-1.1) Sodium Level 142 mmol/L (136-145) 143 mmol/L (136-145) Potassium Level 4.2 mmol/L (3.5-5.1) 4.4 mmol/L (3.5-5.1) Chloride Level 107 mmol/L (98-107) 107 mmol/L (98-107) Carbon Dioxide Level 29 mmol/L (21-32) 28 mmol/L (21-32) Anion Gap 6 (6-14) 8 (6-14) Blood Urea Nitrogen 23 mg/dL (7-20) 20 mg/dL (7-20) Estimated GFR (Cockcroft-Gault) 39.7 43.6 Glucose Level 77 mg/dL (70-99) 78 mg/dL (70-99) Calcium Level 8.2 mg/dL (8.5-10.1) 8.1 mg/dL (8.5-10.1) Laboratory Tests Test 11/18/17 04:05 White Blood Count 5.8 x10^3/uL (4.0-11.0) Red Blood Count 3.40 x10^6/uL (3.50-5.40) Hemoglobin 11.2 g/dL (12.0-15.5) Hematocrit 34.7 % (36.0-47.0) Mean Corpuscular Volume 102 fL (79-100) Mean Corpuscular Hemoglobin 33 pg (25-35) Mean Corpuscular Hemoglobin Concent 32 g/dL (31-37) Red Cell Distribution Width 19.6 % (11.5-14.5) Platelet Count 178 x10^3/uL (140-400) Neutrophils (%) (Auto) 78 % (31-73) Lymphocytes (%) (Auto) 17 % (24-48) Monocytes (%) (Auto) 3 % (0-9) Eosinophils (%) (Auto) 1 % (0-3) Basophils (%) (Auto) 1 % (0-3) Neutrophils # (Auto) 4.5 x10^3uL (1.8-7.7) Lymphocytes # (Auto) 1.0 x10^3/uL (1.0-4.8) Monocytes # (Auto) 0.2 x10^3/uL (0.0-1.1) Eosinophils # (Auto) 0.0 x10^3/uL (0.0-0.7) Basophils # (Auto) 0.1 x10^3/uL (0.0-0.2) Prothrombin Time 34.7 SEC (11.7-14.0) Prothromb Time International Ratio 3.7 (0.8-1.1) Sodium Level 143 mmol/L (136-145) Potassium Level 4.4 mmol/L (3.5-5.1) Chloride Level 107 mmol/L (98-107) Carbon Dioxide Level 28 mmol/L (21-32) Anion Gap 8 (6-14) Blood Urea Nitrogen 20 mg/dL (7-20) Creatinine 1.2 mg/dL (0.6-1.0) Estimated GFR (Cockcroft-Gault) 43.6 Glucose Level 78 mg/dL (70-99) Calcium Level 8.1 mg/dL (8.5-10.1) Microbiology 11/15/17 Blood Culture - Preliminary, Resulted NO GROWTH AFTER 2 DAYS Medications Current Medications Aspirin (Children'S Aspirin) 324 mg 1X ONCE PO ; Start 11/13/17 at 17:15; Stop 11/13/17 at 17:16; Status DC Vancomycin HCl (Vanco Per Pharmacy) 1 each PRN DAILY PRN MC SEE COMMENTS Last administered on 11/13/17 18:43; Start 11/13/17 at 17:15; Stop 11/14/17 at 10 :28; Status DC Ondansetron HCl (Zofran) 4 mg PRN Q8HRS PRN IV NAUSEA/VOMITING; Start at 17:15; Stop 11/14/17 at 08:38; Status DC Sodium Chloride 1,000 ml @ 100 mls/hr Q10H IV Last administered on 11/14/17 03:13; Start 11/13/17 at 17:13; Stop 11/14/17 at 17:12; Status DC Vancomycin HCl 1.25 gm/Sodium Chloride 250 ml @ 166.667 mls/hr 1X ONCE IV Last administered on 11/13/17 18:00; Start 11/13/17 at 18:00; Stop 11/13/17 at 19:29; Status DC Acetaminophen (Tylenol) 650 mg 1X ONCE PO Last administered on 11/13/17 18: 40; Start 11/13/17 at 18:15; Stop 11/13/17 at 18:16; Status DC Vancomycin HCl 750 mg/Sodium Chloride 250 ml @ 250 mls/hr Q24H IV ; Start at 18:00; Stop 11/14/17 at 18:00; Status DC Vancomycin HCl 1 each 1X ONCE MC ; Start 11/15/17 at 17:30; Stop 11/15/17 at 17:30; Status DC Acetaminophen (Tylenol) 500 mg PRN Q6HRS PRN PO MILD PAIN / TEMP Last administered on 11/14/17 21:39; Start 11/13/17 at 23:15 Alprazolam (Xanax) 0.25 mg PRN TID PRN PO ANXIETY / AGITATION Last administered on 11/18/17 03:22; Start 11/13/17 at 23:15 Tramadol HCl (Ultram) 50 mg PRN Q6HRS PRN PO MODERATE PAIN Last administered on 11/14/17 09:22; Start 11/13/17 at 23:15; Stop 11/14/17 at 10:09; Status DC Trazodone HCl (Desyrel) 25 mg HS PO Last administered on 11/17/17 20:42; Start 11/13/17 at 23:30 Lactobacillus Rhamnosus (Culturelle) 1 cap BID PO ; Start 11/14/17 at 09:00; Stop 11/14/17 at 10:32; Status DC Ondansetron HCl (Zofran) 4 mg PRN Q6HRS PRN IV NAUSEA/VOMITING; Start at 08:45; Stop 11/15/17 at 08:44; Status DC Acetaminophen (Tylenol) 650 mg PRN Q6HRS PRN PO pain Last administered on 11/18 09:02; Start 11/14/17 at 08:45 Allopurinol (Zyloprim) 100 mg DAILY PO Last administered on 11/18/17 08:07; Start 11/14/17 at 09:00 Calcitriol (Rocaltrol) 0.25 mcg DAILY PO Last administered on 11/18/17 08:08 ; Start 11/14/17 at 09:00 Furosemide (Lasix) 40 mg DAILY PO Last administered on 11/18/17 08:07; Start 11/14/17 at 09:00 Guaifenesin (MUCINEX ER with DM) 1 tab PRN Q12HRS PRN PO COUGH; Start at 08:45 Lactobacillus Rhamnosus (Culturelle) 1 cap BID PO Last administered on 08:08; Start 11/14/17 at 09:00 Levothyroxine Sodium (Synthroid) 100 mcg DAILY07 PO Last administered on 05:44; Start 11/14/17 at 10:30 Potassium Chloride (Klor-Con) 20 meq DAILYWBKFT PO Last administered on 09:23; Start 11/14/17 at 08:00; Stop 11/14/17 at 11:52; Status DC Propafenone HCl (Rythmol) 150 mg BID PO Last administered on 11/18/17 08:06; Start 11/14/17 at 09:00 Spironolactone (Aldactone) 25 mg DAILY PO Last administered on 11/14/17 09:23 ; Start 11/14/17 at 09:00; Stop 11/14/17 at 11:51; Status DC Non-Formulary Medication 1,000 mg BID PO ; Start 11/14/17 at 09:00; Status UNV Calcium/Vitamin D (Oscal D 500mg/ 200uts) 1 tab BIDWMEALS PO Last administered on 11/18/17 08:06; Start 11/14/17 at 09:00 Cetirizine HCl (ZyrTEC) 10 mg DAILY PO Last administered on 11/18/17 08:07; Start 11/14/17 at 10:00 Fish Oil (Fish Oil) 1,000 mg DAILY PO Last administered on 11/18/17 08:07; Start 11/14/17 at 10:00 Pantoprazole Sodium (Protonix) 40 mg DAILYAC PO Last administered on 08:07; Start 11/14/17 at 11:30 Paroxetine HCl (Paxil) 20 mg DAILY PO Last administered on 11/18/17 08:07; Start 11/14/17 at 11:00 Artificial Tears (Artificial Tears) 1 drop DAILY OU Last administered on 08:06; Start 11/14/17 at 10:30 Hydroxychloroquine Sulfate (Plaquenil) 200 mg DAILY08 PO Last administered on 11/18/17 08:07; Start 11/14/17 at 11:00 Ferrous Sulfate (Feosol) 325 mg DAILYWBKFT PO Last administered on 11/18/17 08:08; Start 11/14/17 at 12:00 Metolazone (Zaroxolyn) 5 mg DAILY PO Last administered on 11/14/17 09:24; Start 11/14/17 at 09:00; Stop 11/14/17 at 11:47; Status DC Tramadol HCl (Ultram) 50 mg PRN Q6HRS PRN PO MODERATE - SEVERE PAIN Last administered on 11/18/17 03:22; Start 11/14/17 at 08:45 Warfarin Sodium (Coumadin Per Pharmacy) 1 each PRN DAILY PRN MC SEE COMMENTS Last administered on 11/18/17 10:16; Start 11/14/17 at 08:45 Linezolid (Zyvox) 600 mg BID PO ; Start 11/14/17 at 21:00; Stop 11/14/17 at 21 :00; Status DC Cefazolin Sodium 1 gm/Dextrose 50 ml @ 100 mls/hr Q8HRS IV ; Start 11/14/17 at 14:00; Stop 11/14/17 at 14:00; Status DC Cefazolin Sodium (Ancef) 1 gm Q8HRS IVP ; Start 11/14/17 at 11:00; Stop at 11:00; Status DC Vancomycin HCl (Vanco Per Pharmacy) 1 each PRN DAILY PRN MC SEE COMMENTS Last administered on 11/14/17 11:21; Start 11/14/17 at 10:45; Stop 11/15/17 at 13 :47; Status DC Ceftriaxone Sodium 2 gm/ Dextrose 100 ml @ 200 mls/hr Q24H IV ; Start at 10:45; Stop 11/14/17 at 10:45; Status DC Ceftriaxone Sodium (Rocephin) 1 gm Q24H IVP ; Start 11/14/17 at 11:00; Status Cancel Ceftriaxone Sodium (Rocephin) 2 gm Q24H IVP Last administered on 11/17/17 11: 25; Start 11/14/17 at 11:00 Vancomycin HCl 750 mg/Sodium Chloride 250 ml @ 250 mls/hr Q24H IV Last administered on 11/14/17 16:53; Start 11/14/17 at 18:00; Stop 11/15/17 at 13 :44; Status DC Vancomycin HCl 1 each 1X ONCE MC ; Start 11/15/17 at 17:30; Stop 11/15/17 at 17:30; Status DC Warfarin Sodium (Coumadin - No Dose Today) 1 each 1X WARF ONCE MC ; Start at 16:00; Stop 11/14/17 at 16:01; Status Cancel Metolazone (Zaroxolyn) 5 mg QMWF PO Last administered on 11/15/17 16:05; Start 11/15/17 at 16:00 Spironolactone (Aldactone) 50 mg DAILY PO Last administered on 11/18/17 08:06 ; Start 11/15/17 at 09:00 Potassium Chloride (Klor-Con) 60 meq BIDWMEALS PO Last administered on 08:07; Start 11/14/17 at 17:00 Methotrexate (Rheumatrex) 17.5 mg QWE PO ; Start 11/20/17 at 16:00 Warfarin Sodium (Coumadin) 3 mg 1X WARF ONCE PO Last administered on 16:45; Start 11/14/17 at 16:00; Stop 11/14/17 at 16:01; Status DC Vitamin A/Vitamin D (Vitamin A & D Ointment) 1 nelli PRN Q1HR PRN TP SKIN PROTECTION Last administered on 11/18/17 09:02; Start 11/14/17 at 14:00 Potassium Chloride 100 ml @ 100 mls/hr Q1H IV ; Start 11/15/17 at 06:00; Stop 11/15/17 at 07:59; Status UNV Potassium Chloride (KCl Oral Soln) 20 meq 1X ONCE PO Last administered on 06:35; Start 11/15/17 at 06:30; Stop 11/15/17 at 06:31; Status DC Linezolid (Zyvox) 600 mg BID PO Last administered on 11/18/17 08:06; Start 11/15/17 at 14:00 Warfarin Sodium (Coumadin) 6 mg 1X WARF ONCE PO Last administered on 16:06; Start 11/15/17 at 16:00; Stop 11/15/17 at 16:01; Status DC Ondansetron HCl (Zofran) 4 mg PRN Q6HRS PRN IV NAUSEA/VOMITING; Start at 10:30 Warfarin Sodium (Coumadin) 6 mg 1X WARF ONCE PO Last administered on 17:18; Start 11/16/17 at 16:00; Stop 11/16/17 at 16:01; Status DC Warfarin Sodium (Coumadin - No Dose Today) 1 each 1X WARF ONCE MC ; Start at 16:00; Stop 11/17/17 at 16:01; Status DC Warfarin Sodium (Coumadin - No Dose Today) 1 each 1X WARF ONCE MC ; Start at 16:00; Stop 11/18/17 at 16:01 Active Scripts Active Keflex (Cephalexin) 250 Mg Capsule 1 Cap PO TID Klor-Con M20 (Potassium Chloride) 20 Meq Tab.er.prt 20 Meq PO DAILYWBKFT Culturelle (Lactobacillus Rhamnosus Gg) 1 Each Cap.sprink 1 Cap PO BID Furosemide 40 Mg Tablet 40 Mg PO DAILY Calcitriol 0.25 Mcg Capsule 0.25 Mcg PO DAILY Aldactone (Spironolactone) 25 Mg Tablet 1 Tab PO DAILY Reported Calcitriol 0.25 Mcg Capsule Metolazone 5 Mg Tablet Methotrexate (Methotrexate Sodium) 2.5 Mg Tablet 7 Tab PO SATURDAY [hydroxyl-chloroquine] 200 Mg PO DAILY08 Calcium + Vitamin D Tablet (Calcium Carbonate/Vitamin D3) 1 Each Tablet 1 Each PO BID Claritin (Loratadine) 10 Mg Tablet 1 Tab PO DAILY PRN Coumadin (Warfarin Sodium) 6 Mg Tablet 6 Mg PO ,,,SA,DUNCAN Acetaminophen 500 Mg Tablet 1 Tab PO PRN Q6HRS PRN Mucinex Dm Er 600-30 Mg Tablet (Guaifenesin/Dextromethorphan) 1 Each Tab.er.12h 1 Tab PO PRN Q12HRS Trazodone Hcl 50 Mg Tablet 25 Mg PO HS Propafenone Hcl 150 Mg Tablet 150 Mg PO BID Systane 0.3-0.4% Eye Drops (Propylene Glycol/Peg 400/Pf) 1 Each Droperette 1 Each OP DAILY Xanax (Alprazolam) 0.25 Mg Tablet 1 Tab PO PRN TID PRN Biotin 1 Mg Capsule 1,000 Mg PO BID [lutein] 1 Tab BID [Iron ] 1 Tab DAILY Omeprazole 40 Mg Capsule.dr 40 Mg PO DAILY Tramadol Hcl 50 Mg Tablet 50 Mg PO PRN Q6HRS PRN Fish Oil 1,000 Mg Softgel ([place]-3 Fatty Acids/Fish Oil) 1 Each Capsule 1 Each PO DAILY Allopurinol 100 Mg Tablet 100 Mg PO DAILY Paxil (Paroxetine Hcl) 40 Mg Tablet 20 Mg PO DAILY Levothyroxine Sodium 100 Mcg Tablet 100 Mcg PO DAILY Vitals/I & O Vital Sign - Last 24 Hours 11/17/17 11/17/17 11/17/17 11/17/17 11:00 15:00 17:02 18:02 Temp 97.9 97.7 97.9 97.7 Pulse 62 61 Resp 20 20 20 B/P (MAP) 103/55 (71) 116/59 (78) Pulse Ox 98 98 98 98 O2 Delivery Room Air Room Air Room Air 11/17/17 11/17/17 11/17/17 11/17/17 19:00 19:30 20:42 23:00 Temp 97.5 97.7 97.5 97.7 Pulse 64 64 60 Resp 18 18 B/P (MAP) 119/65 (83) 119/65 107/54 (71) Pulse Ox 99 99 O2 Delivery Room Air Room Air Room Air 11/18/17 11/18/17 11/18/17 11/18/17 03:00 03:22 04:25 07:16 Temp 97.9 97.9 Pulse 80 Resp 18 20 B/P (MAP) 112/66 (81) Pulse Ox 99 99 O2 Delivery Room Air Room Air Room Air Room Air 11/18/17 11/18/17 07:32 08:06 Temp 97.7 97.7 Pulse 66 80 Resp 18 B/P (MAP) 135/75 (95) 112/66 Pulse Ox 100 O2 Delivery Room Air BRITTA MARTINEZ III DO Nov 18, 2017 10:36
--- NOTE | 2017-11-18 10:41 | PDOC ---
PULMONARY PROGRESS NOTES Subjective c/o no soa Vitals Vital Signs Date Time Temp Pulse Resp B/P (MAP) Pulse Ox O2 Delivery O2 Flow Rate FiO2 11/18/17 08:06 80 112/66 11/18/17 07:32 97.7 18 100 Room Air 97.7 General: Alert, Oriented X4, No acute distress Lungs: Clear Cardiovascular: S1, S2 Abdomen: Soft, Non-tender Neuro Exam: Alert Extremities: Other (less erythema) Labs Laboratory Tests Test 11/16/17 15:00 11/17/17 04:20 11/18/17 04:05 Urine Protein 4.1 mg/dL (Not Estab.) Urine Creatinine 24 Hour 462 mg/24 hr (800-1800) Creatinine Clearance 24 Hour 27 mL/min (88-128) Urine Protein 24 Hr Calculated 86 mg/24 hr (30-150) Creatinine 1.19 mg/dL (0.57-1.00) 1.3 mg/dL (0.6-1.0) 1.2 mg/dL (0.6-1.0) Estimated GFR (Non- 44 (>59) EGFR 51 (>59) White Blood Count 7.0 x10^3/uL (4.0-11.0) 5.8 x10^3/uL (4.0-11.0) Red Blood Count 3.35 x10^6/uL (3.50-5.40) 3.40 x10^6/uL (3.50-5.40) Hemoglobin 11.0 g/dL (12.0-15.5) 11.2 g/dL (12.0-15.5) Hematocrit 34.0 % (36.0-47.0) 34.7 % (36.0-47.0) Mean Corpuscular Volume 102 fL (79-100) 102 fL (79-100) Mean Corpuscular Hemoglobin 33 pg (25-35) 33 pg (25-35) Mean Corpuscular Hemoglobin Concent 32 g/dL (31-37) 32 g/dL (31-37) Red Cell Distribution Width 19.7 % (11.5-14.5) 19.6 % (11.5-14.5) Platelet Count 169 x10^3/uL (140-400) 178 x10^3/uL (140-400) Neutrophils (%) (Auto) 85 % (31-73) 78 % (31-73) Lymphocytes (%) (Auto) 13 % (24-48) 17 % (24-48) Monocytes (%) (Auto) 2 % (0-9) 3 % (0-9) Eosinophils (%) (Auto) 0 % (0-3) 1 % (0-3) Basophils (%) (Auto) 0 % (0-3) 1 % (0-3) Neutrophils # (Auto) 6.0 x10^3uL (1.8-7.7) 4.5 x10^3uL (1.8-7.7) Lymphocytes # (Auto) 0.9 x10^3/uL (1.0-4.8) 1.0 x10^3/uL (1.0-4.8) Monocytes # (Auto) 0.1 x10^3/uL (0.0-1.1) 0.2 x10^3/uL (0.0-1.1) Eosinophils # (Auto) 0.0 x10^3/uL (0.0-0.7) 0.0 x10^3/uL (0.0-0.7) Basophils # (Auto) 0.0 x10^3/uL (0.0-0.2) 0.1 x10^3/uL (0.0-0.2) Prothrombin Time 29.9 SEC (11.7-14.0) 34.7 SEC (11.7-14.0) Prothromb Time International Ratio 3.1 (0.8-1.1) 3.7 (0.8-1.1) Sodium Level 142 mmol/L (136-145) 143 mmol/L (136-145) Potassium Level 4.2 mmol/L (3.5-5.1) 4.4 mmol/L (3.5-5.1) Chloride Level 107 mmol/L (98-107) 107 mmol/L (98-107) Carbon Dioxide Level 29 mmol/L (21-32) 28 mmol/L (21-32) Anion Gap 6 (6-14) 8 (6-14) Blood Urea Nitrogen 23 mg/dL (7-20) 20 mg/dL (7-20) Estimated GFR (Cockcroft-Gault) 39.7 43.6 Glucose Level 77 mg/dL (70-99) 78 mg/dL (70-99) Calcium Level 8.2 mg/dL (8.5-10.1) 8.1 mg/dL (8.5-10.1) Laboratory Tests Test 11/18/17 04:05 White Blood Count 5.8 x10^3/uL (4.0-11.0) Red Blood Count 3.40 x10^6/uL (3.50-5.40) Hemoglobin 11.2 g/dL (12.0-15.5) Hematocrit 34.7 % (36.0-47.0) Mean Corpuscular Volume 102 fL (79-100) Mean Corpuscular Hemoglobin 33 pg (25-35) Mean Corpuscular Hemoglobin Concent 32 g/dL (31-37) Red Cell Distribution Width 19.6 % (11.5-14.5) Platelet Count 178 x10^3/uL (140-400) Neutrophils (%) (Auto) 78 % (31-73) Lymphocytes (%) (Auto) 17 % (24-48) Monocytes (%) (Auto) 3 % (0-9) Eosinophils (%) (Auto) 1 % (0-3) Basophils (%) (Auto) 1 % (0-3) Neutrophils # (Auto) 4.5 x10^3uL (1.8-7.7) Lymphocytes # (Auto) 1.0 x10^3/uL (1.0-4.8) Monocytes # (Auto) 0.2 x10^3/uL (0.0-1.1) Eosinophils # (Auto) 0.0 x10^3/uL (0.0-0.7) Basophils # (Auto) 0.1 x10^3/uL (0.0-0.2) Prothrombin Time 34.7 SEC (11.7-14.0) Prothromb Time International Ratio 3.7 (0.8-1.1) Sodium Level 143 mmol/L (136-145) Potassium Level 4.4 mmol/L (3.5-5.1) Chloride Level 107 mmol/L (98-107) Carbon Dioxide Level 28 mmol/L (21-32) Anion Gap 8 (6-14) Blood Urea Nitrogen 20 mg/dL (7-20) Creatinine 1.2 mg/dL (0.6-1.0) Estimated GFR (Cockcroft-Gault) 43.6 Glucose Level 78 mg/dL (70-99) Calcium Level 8.1 mg/dL (8.5-10.1) Medications Active Scripts Medications Dose Route/Sig Max Daily Dose Days Date Category Keflex (Cephalexin) 250 Mg Capsule 1 Cap PO TID 10/23/17 Rx Klor-Con M20 (Potassium Chloride) 20 Meq Tab.er.prt 20 Meq PO DAILYWBKFT 10/23/17 Rx Culturelle (Lactobacillus Rhamnosus Gg) 1 Each Cap.sprink 1 Cap PO BID 10/23/17 Rx Furosemide 40 Mg Tablet 40 Mg PO DAILY 10/23/17 Rx Calcitriol 0.25 Mcg Capsule 0.25 Mcg PO DAILY 10/23/17 Rx Calcitriol 0.25 Mcg Capsule 10/20/17 Reported Metolazone 5 Mg Tablet 07/28/17 Reported Aldactone (Spironolactone) 25 Mg Tablet 1 Tab PO DAILY 07/01/17 Rx Methotrexate (Methotrexate Sodium) 2.5 Mg Tablet 7 Tab PO Saturday06/23/17 Reported [hydroxyl-chloroquine] 200 Mg PO DAILY08 05/18/17 Reported Calcium + Vitamin D Tablet (Calcium Carbonate/Vitamin D3) 1 Each Tablet 1 Each PO BID 05/18/17 Reported Claritin (Loratadine) 10 Mg Tablet 1 Tab PO DAILY PRN 05/18/17 Reported Coumadin (Warfarin Sodium) 6 Mg Tablet 6 Mg PO ,,,SA,DUNCAN 05/18/17 Reported Acetaminophen 500 Mg Tablet 1 Tab PO PRN Q6HRS PRN 03/28/16 Reported Mucinex Dm Er 600-30 Mg Tablet (Guaifenesin/Dextromethorphan) 1 Each Tab.er.12h 1 Tab PO PRN Q12HRS 03/28/16 Reported Trazodone Hcl 50 Mg Tablet 25 Mg PO HS 03/28/16 Reported Propafenone Hcl 150 Mg Tablet 150 Mg PO BID 03/28/16 Reported Systane 0.3-0.4% Eye Drops (Propylene Glycol/Peg 400/Pf) 1 Each Droperette 1 Each OP DAILY 12/26/15 Reported Xanax (Alprazolam) 0.25 Mg Tablet 1 Tab PO PRN TID PRN 12/23/15 Reported Biotin 1 Mg Capsule 1,000 Mg PO BID 12/23/15 Reported [lutein] 1 Tab BID 12/23/15 Reported [Iron ] 1 Tab DAILY 12/23/15 Reported Omeprazole 40 Mg Capsule.dr 40 Mg PO DAILY 11/28/13 Reported Tramadol Hcl 50 Mg Tablet 50 Mg PO PRN Q6HRS PRN 11/28/13 Reported Fish Oil 1,000 Mg Softgel ([place]-3 Fatty Acids/Fish Oil) 1 Each Capsule 1 Each PO DAILY 11/28/13 Reported Allopurinol 100 Mg Tablet 100 Mg PO DAILY 11/28/13 Reported Paxil (Paroxetine Hcl) 40 Mg Tablet 20 Mg PO DAILY 11/28/13 Reported Levothyroxine Sodium 100 Mcg Tablet 100 Mcg PO DAILY 11/28/13 Reported Impression . 1. Subjective dyspnea. Clinically, she appears to be doing well. There is no infiltrate seen on the chest x-ray. The patient is already on anticoagulation and clinically, I do not suspect thromboembolic disease in the setting of a therapeutic INR. At this point, I do not see any further workup and we will monitor clinically. 2. 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 Chest x-ray is clear. 3. Lower extremity cellulitis. Venous Dopplers showing no evidence of deep venous thrombosis. 4. suspect anxiety disorder Plan . 1. respiratory status stable 2. Continue anticoagulation per PCP. 3. Antibiotic per Infectious Disease. 4. PRN bronchodilators. 5. No further pulmonary workup at this point. will sign off GUNNAR RAND MD Nov 18, 2017 10:41
[2017-11-18] MEDS: cefTRIAXone IV Push 2 GM VIAL. IVP SCH (11:45)
--- NOTE | 2017-11-18 13:50 | RAD ---
Examination: Ultrasound bilateral lower extremity venous duplex History: History of pain in the bilateral lower extremity Comparison: 11/13/2017 Technique: Grayscale, color Doppler 2-D, spectral waveform and is the bilateral lower extremity venous system Findings: The visualized common femoral vein, suspicious femoral vein, popliteal vein demonstrate normal compression and augmentation of flow within the visualized calf veins. Few lymph nodes identified in the right inguinal region. Impression: No evidence of deep venous thrombosis identified in the visualized bilateral lower extremity venous system.
[2017-11-18 14:45] VITALS: BP 124/69
[2017-11-18] MEDS: metOLazone 2.5 MG TABLET PO SCH (17:01)
--- NOTE | 2017-11-18 18:59 | PDOC ---
PROGRESS NOTES Subjective Subjective No new complaints. Objective Objective Vital Signs Date Time Temp Pulse Resp B/P (MAP) Pulse Ox O2 Delivery O2 Flow Rate FiO2 11/18/17 14:45 97.8 65 18 124/69 (87) 99 Room Air 97.8 Intake and Output 11/18/17 07:00 # Voids 6 # Bowel Movements 2 Physical Exam Physical Exam No significant changes in cardiac exam Assessment Assessment The leg is looking better. Home soon but would continue with the current antibiotics. Problems Medical Problems: (1) Cellulitis of right lower extremity Status: Acute (2) Cellulitis of right lower extremity without foot Status: Acute Comment Review of Relevant I have reviewed the following items leila (where applicable) has been applied. Labs Laboratory Tests Test 11/17/17 04:20 11/18/17 04:05 White Blood Count 7.0 x10^3/uL (4.0-11.0) 5.8 x10^3/uL (4.0-11.0) Red Blood Count 3.35 x10^6/uL (3.50-5.40) 3.40 x10^6/uL (3.50-5.40) Hemoglobin 11.0 g/dL (12.0-15.5) 11.2 g/dL (12.0-15.5) Hematocrit 34.0 % (36.0-47.0) 34.7 % (36.0-47.0) Mean Corpuscular Volume 102 fL (79-100) 102 fL (79-100) Mean Corpuscular Hemoglobin 33 pg (25-35) 33 pg (25-35) Mean Corpuscular Hemoglobin Concent 32 g/dL (31-37) 32 g/dL (31-37) Red Cell Distribution Width 19.7 % (11.5-14.5) 19.6 % (11.5-14.5) Platelet Count 169 x10^3/uL (140-400) 178 x10^3/uL (140-400) Neutrophils (%) (Auto) 85 % (31-73) 78 % (31-73) Lymphocytes (%) (Auto) 13 % (24-48) 17 % (24-48) Monocytes (%) (Auto) 2 % (0-9) 3 % (0-9) Eosinophils (%) (Auto) 0 % (0-3) 1 % (0-3) Basophils (%) (Auto) 0 % (0-3) 1 % (0-3) Neutrophils # (Auto) 6.0 x10^3uL (1.8-7.7) 4.5 x10^3uL (1.8-7.7) Lymphocytes # (Auto) 0.9 x10^3/uL (1.0-4.8) 1.0 x10^3/uL (1.0-4.8) Monocytes # (Auto) 0.1 x10^3/uL (0.0-1.1) 0.2 x10^3/uL (0.0-1.1) Eosinophils # (Auto) 0.0 x10^3/uL (0.0-0.7) 0.0 x10^3/uL (0.0-0.7) Basophils # (Auto) 0.0 x10^3/uL (0.0-0.2) 0.1 x10^3/uL (0.0-0.2) Prothrombin Time 29.9 SEC (11.7-14.0) 34.7 SEC (11.7-14.0) Prothromb Time International Ratio 3.1 (0.8-1.1) 3.7 (0.8-1.1) Sodium Level 142 mmol/L (136-145) 143 mmol/L (136-145) Potassium Level 4.2 mmol/L (3.5-5.1) 4.4 mmol/L (3.5-5.1) Chloride Level 107 mmol/L (98-107) 107 mmol/L (98-107) Carbon Dioxide Level 29 mmol/L (21-32) 28 mmol/L (21-32) Anion Gap 6 (6-14) 8 (6-14) Blood Urea Nitrogen 23 mg/dL (7-20) 20 mg/dL (7-20) Creatinine 1.3 mg/dL (0.6-1.0) 1.2 mg/dL (0.6-1.0) Estimated GFR (Cockcroft-Gault) 39.7 43.6 Glucose Level 77 mg/dL (70-99) 78 mg/dL (70-99) Calcium Level 8.2 mg/dL (8.5-10.1) 8.1 mg/dL (8.5-10.1) Laboratory Tests Test 11/18/17 04:05 White Blood Count 5.8 x10^3/uL (4.0-11.0) Red Blood Count 3.40 x10^6/uL (3.50-5.40) Hemoglobin 11.2 g/dL (12.0-15.5) Hematocrit 34.7 % (36.0-47.0) Mean Corpuscular Volume 102 fL (79-100) Mean Corpuscular Hemoglobin 33 pg (25-35) Mean Corpuscular Hemoglobin Concent 32 g/dL (31-37) Red Cell Distribution Width 19.6 % (11.5-14.5) Platelet Count 178 x10^3/uL (140-400) Neutrophils (%) (Auto) 78 % (31-73) Lymphocytes (%) (Auto) 17 % (24-48) Monocytes (%) (Auto) 3 % (0-9) Eosinophils (%) (Auto) 1 % (0-3) Basophils (%) (Auto) 1 % (0-3) Neutrophils # (Auto) 4.5 x10^3uL (1.8-7.7) Lymphocytes # (Auto) 1.0 x10^3/uL (1.0-4.8) Monocytes # (Auto) 0.2 x10^3/uL (0.0-1.1) Eosinophils # (Auto) 0.0 x10^3/uL (0.0-0.7) Basophils # (Auto) 0.1 x10^3/uL (0.0-0.2) Prothrombin Time 34.7 SEC (11.7-14.0) Prothromb Time International Ratio 3.7 (0.8-1.1) Sodium Level 143 mmol/L (136-145) Potassium Level 4.4 mmol/L (3.5-5.1) Chloride Level 107 mmol/L (98-107) Carbon Dioxide Level 28 mmol/L (21-32) Anion Gap 8 (6-14) Blood Urea Nitrogen 20 mg/dL (7-20) Creatinine 1.2 mg/dL (0.6-1.0) Estimated GFR (Cockcroft-Gault) 43.6 Glucose Level 78 mg/dL (70-99) Calcium Level 8.1 mg/dL (8.5-10.1) Microbiology 11/15/17 Blood Culture - Preliminary, Resulted NO GROWTH AFTER 3 DAYS Medications Current Medications Aspirin (Children'S Aspirin) 324 mg 1X ONCE PO ; Start 11/13/17 at 17:15; Stop 11/13/17 at 17:16; Status DC Vancomycin HCl (Vanco Per Pharmacy) 1 each PRN DAILY PRN MC SEE COMMENTS Last administered on 11/13/17 18:43; Start 11/13/17 at 17:15; Stop 11/14/17 at 10 :28; Status DC Ondansetron HCl (Zofran) 4 mg PRN Q8HRS PRN IV NAUSEA/VOMITING; Start at 17:15; Stop 11/14/17 at 08:38; Status DC Sodium Chloride 1,000 ml @ 100 mls/hr Q10H IV Last administered on 11/14/17 03:13; Start 11/13/17 at 17:13; Stop 11/14/17 at 17:12; Status DC Vancomycin HCl 1.25 gm/Sodium Chloride 250 ml @ 166.667 mls/hr 1X ONCE IV Last administered on 11/13/17 18:00; Start 11/13/17 at 18:00; Stop 11/13/17 at 19:29; Status DC Acetaminophen (Tylenol) 650 mg 1X ONCE PO Last administered on 11/13/17 18: 40; Start 11/13/17 at 18:15; Stop 11/13/17 at 18:16; Status DC Vancomycin HCl 750 mg/Sodium Chloride 250 ml @ 250 mls/hr Q24H IV ; Start at 18:00; Stop 11/14/17 at 18:00; Status DC Vancomycin HCl 1 each 1X ONCE MC ; Start 11/15/17 at 17:30; Stop 11/15/17 at 17:30; Status DC Acetaminophen (Tylenol) 500 mg PRN Q6HRS PRN PO MILD PAIN / TEMP Last administered on 11/14/17 21:39; Start 11/13/17 at 23:15 Alprazolam (Xanax) 0.25 mg PRN TID PRN PO ANXIETY / AGITATION Last administered on 11/18/17 11:49; Start 11/13/17 at 23:15 Tramadol HCl (Ultram) 50 mg PRN Q6HRS PRN PO MODERATE PAIN Last administered on 11/14/17 09:22; Start 11/13/17 at 23:15; Stop 11/14/17 at 10:09; Status DC Trazodone HCl (Desyrel) 25 mg HS PO Last administered on 11/17/17 20:42; Start 11/13/17 at 23:30 Lactobacillus Rhamnosus (Culturelle) 1 cap BID PO ; Start 11/14/17 at 09:00; Stop 11/14/17 at 10:32; Status DC Ondansetron HCl (Zofran) 4 mg PRN Q6HRS PRN IV NAUSEA/VOMITING; Start at 08:45; Stop 11/15/17 at 08:44; Status DC Acetaminophen (Tylenol) 650 mg PRN Q6HRS PRN PO pain Last administered on 11/18 09:02; Start 11/14/17 at 08:45 Allopurinol (Zyloprim) 100 mg DAILY PO Last administered on 11/18/17 08:07; Start 11/14/17 at 09:00 Calcitriol (Rocaltrol) 0.25 mcg DAILY PO Last administered on 11/18/17 08:08 ; Start 11/14/17 at 09:00 Furosemide (Lasix) 40 mg DAILY PO Last administered on 11/18/17 08:07; Start 11/14/17 at 09:00 Guaifenesin (MUCINEX ER with DM) 1 tab PRN Q12HRS PRN PO COUGH; Start at 08:45 Lactobacillus Rhamnosus (Culturelle) 1 cap BID PO Last administered on 08:08; Start 11/14/17 at 09:00 Levothyroxine Sodium (Synthroid) 100 mcg DAILY07 PO Last administered on 05:44; Start 11/14/17 at 10:30 Potassium Chloride (Klor-Con) 20 meq DAILYWBKFT PO Last administered on 09:23; Start 11/14/17 at 08:00; Stop 11/14/17 at 11:52; Status DC Propafenone HCl (Rythmol) 150 mg BID PO Last administered on 11/18/17 08:06; Start 11/14/17 at 09:00 Spironolactone (Aldactone) 25 mg DAILY PO Last administered on 11/14/17 09:23 ; Start 11/14/17 at 09:00; Stop 11/14/17 at 11:51; Status DC Non-Formulary Medication 1,000 mg BID PO ; Start 11/14/17 at 09:00; Status UNV Calcium/Vitamin D (Oscal D 500mg/ 200uts) 1 tab BIDWMEALS PO Last administered on 11/18/17 17:01; Start 11/14/17 at 09:00 Cetirizine HCl (ZyrTEC) 10 mg DAILY PO Last administered on 11/18/17 08:07; Start 11/14/17 at 10:00 Fish Oil (Fish Oil) 1,000 mg DAILY PO Last administered on 11/18/17 08:07; Start 11/14/17 at 10:00 Pantoprazole Sodium (Protonix) 40 mg DAILYAC PO Last administered on 08:07; Start 11/14/17 at 11:30 Paroxetine HCl (Paxil) 20 mg DAILY PO Last administered on 11/18/17 08:07; Start 11/14/17 at 11:00 Artificial Tears (Artificial Tears) 1 drop DAILY OU Last administered on 08:06; Start 11/14/17 at 10:30 Hydroxychloroquine Sulfate (Plaquenil) 200 mg DAILY08 PO Last administered on 11/18/17 08:07; Start 11/14/17 at 11:00 Ferrous Sulfate (Feosol) 325 mg DAILYWBKFT PO Last administered on 11/18/17 08:08; Start 11/14/17 at 12:00 Metolazone (Zaroxolyn) 5 mg DAILY PO Last administered on 11/14/17 09:24; Start 11/14/17 at 09:00; Stop 11/14/17 at 11:47; Status DC Tramadol HCl (Ultram) 50 mg PRN Q6HRS PRN PO MODERATE - SEVERE PAIN Last administered on 11/18/17 11:49; Start 11/14/17 at 08:45 Warfarin Sodium (Coumadin Per Pharmacy) 1 each PRN DAILY PRN MC SEE COMMENTS Last administered on 11/18/17 10:16; Start 11/14/17 at 08:45 Linezolid (Zyvox) 600 mg BID PO ; Start 11/14/17 at 21:00; Stop 11/14/17 at 21 :00; Status DC Cefazolin Sodium 1 gm/Dextrose 50 ml @ 100 mls/hr Q8HRS IV ; Start 11/14/17 at 14:00; Stop 11/14/17 at 14:00; Status DC Cefazolin Sodium (Ancef) 1 gm Q8HRS IVP ; Start 11/14/17 at 11:00; Stop at 11:00; Status DC Vancomycin HCl (Vanco Per Pharmacy) 1 each PRN DAILY PRN MC SEE COMMENTS Last administered on 11/14/17 11:21; Start 11/14/17 at 10:45; Stop 11/15/17 at 13 :47; Status DC Ceftriaxone Sodium 2 gm/ Dextrose 100 ml @ 200 mls/hr Q24H IV ; Start at 10:45; Stop 11/14/17 at 10:45; Status DC Ceftriaxone Sodium (Rocephin) 1 gm Q24H IVP ; Start 11/14/17 at 11:00; Status Cancel Ceftriaxone Sodium (Rocephin) 2 gm Q24H IVP Last administered on 11/18/17 11: 45; Start 11/14/17 at 11:00 Vancomycin HCl 750 mg/Sodium Chloride 250 ml @ 250 mls/hr Q24H IV Last administered on 11/14/17 16:53; Start 11/14/17 at 18:00; Stop 11/15/17 at 13 :44; Status DC Vancomycin HCl 1 each 1X ONCE MC ; Start 11/15/17 at 17:30; Stop 11/15/17 at 17:30; Status DC Warfarin Sodium (Coumadin - No Dose Today) 1 each 1X WARF ONCE MC ; Start at 16:00; Stop 11/14/17 at 16:01; Status Cancel Metolazone (Zaroxolyn) 5 mg QMWF PO Last administered on 11/18/17 17:01; Start 11/15/17 at 16:00 Spironolactone (Aldactone) 50 mg DAILY PO Last administered on 11/18/17 08:06 ; Start 11/15/17 at 09:00 Potassium Chloride (Klor-Con) 60 meq BIDWMEALS PO Last administered on 17:02; Start 11/14/17 at 17:00 Methotrexate (Rheumatrex) 17.5 mg QWE PO ; Start 11/20/17 at 16:00 Warfarin Sodium (Coumadin) 3 mg 1X WARF ONCE PO Last administered on 16:45; Start 11/14/17 at 16:00; Stop 11/14/17 at 16:01; Status DC Vitamin A/Vitamin D (Vitamin A & D Ointment) 1 nelli PRN Q1HR PRN TP SKIN PROTECTION Last administered on 11/18/17 09:02; Start 11/14/17 at 14:00 Potassium Chloride 100 ml @ 100 mls/hr Q1H IV ; Start 11/15/17 at 06:00; Stop 11/15/17 at 07:59; Status UNV Potassium Chloride (KCl Oral Soln) 20 meq 1X ONCE PO Last administered on 06:35; Start 11/15/17 at 06:30; Stop 11/15/17 at 06:31; Status DC Linezolid (Zyvox) 600 mg BID PO Last administered on 11/18/17 08:06; Start 11/15/17 at 14:00 Warfarin Sodium (Coumadin) 6 mg 1X WARF ONCE PO Last administered on 16:06; Start 11/15/17 at 16:00; Stop 11/15/17 at 16:01; Status DC Ondansetron HCl (Zofran) 4 mg PRN Q6HRS PRN IV NAUSEA/VOMITING; Start at 10:30 Warfarin Sodium (Coumadin) 6 mg 1X WARF ONCE PO Last administered on 17:18; Start 11/16/17 at 16:00; Stop 11/16/17 at 16:01; Status DC Warfarin Sodium (Coumadin - No Dose Today) 1 each 1X WARF ONCE MC ; Start at 16:00; Stop 11/17/17 at 16:01; Status DC Warfarin Sodium (Coumadin - No Dose Today) 1 each 1X WARF ONCE MC Last administered on 11/18/17t 16:00; Start 11/18/17 at 16:00; Stop 11/18/17 at 16 :01; Status DC Active Scripts Active Keflex (Cephalexin) 250 Mg Capsule 1 Cap PO TID Klor-Con M20 (Potassium Chloride) 20 Meq Tab.er.prt 20 Meq PO DAILYWBKFT Culturelle (Lactobacillus Rhamnosus Gg) 1 Each Cap.sprink 1 Cap PO BID Furosemide 40 Mg Tablet 40 Mg PO DAILY Calcitriol 0.25 Mcg Capsule 0.25 Mcg PO DAILY Aldactone (Spironolactone) 25 Mg Tablet 1 Tab PO DAILY Reported Calcitriol 0.25 Mcg Capsule Metolazone 5 Mg Tablet Methotrexate (Methotrexate Sodium) 2.5 Mg Tablet 7 Tab PO SATURDAY [hydroxyl-chloroquine] 200 Mg PO DAILY08 Calcium + Vitamin D Tablet (Calcium Carbonate/Vitamin D3) 1 Each Tablet 1 Each PO BID Claritin (Loratadine) 10 Mg Tablet 1 Tab PO DAILY PRN Coumadin (Warfarin Sodium) 6 Mg Tablet 6 Mg PO ,,,, Acetaminophen 500 Mg Tablet 1 Tab PO PRN Q6HRS PRN Mucinex Dm Er 600-30 Mg Tablet (Guaifenesin/Dextromethorphan) 1 Each Tab.er.12h 1 Tab PO PRN Q12HRS Trazodone Hcl 50 Mg Tablet 25 Mg PO HS Propafenone Hcl 150 Mg Tablet 150 Mg PO BID Systane 0.3-0.4% Eye Drops (Propylene Glycol/Peg 400/Pf) 1 Each Droperette 1 Each OP DAILY Xanax (Alprazolam) 0.25 Mg Tablet 1 Tab PO PRN TID PRN Biotin 1 Mg Capsule 1,000 Mg PO BID [lutein] 1 Tab BID [Iron ] 1 Tab DAILY Omeprazole 40 Mg Capsule.dr 40 Mg PO DAILY Tramadol Hcl 50 Mg Tablet 50 Mg PO PRN Q6HRS PRN Fish Oil 1,000 Mg Softgel ([place]-3 Fatty Acids/Fish Oil) 1 Each Capsule 1 Each PO DAILY Allopurinol 100 Mg Tablet 100 Mg PO DAILY Paxil (Paroxetine Hcl) 40 Mg Tablet 20 Mg PO DAILY Levothyroxine Sodium 100 Mcg Tablet 100 Mcg PO DAILY Vitals/I & O Vital Sign - Last 24 Hours 11/17/17 11/17/17 11/17/17 11/17/17 19:00 19:30 20:42 23:00 Temp 97.5 97.7 97.5 97.7 Pulse 64 64 60 Resp 18 18 B/P (MAP) 119/65 (83) 119/65 107/54 (71) Pulse Ox 99 99 O2 Delivery Room Air Room Air Room Air 11/18/17 11/18/17 11/18/17 11/18/17 03:00 03:22 04:25 07:16 Temp 97.9 97.9 Pulse 80 Resp 18 20 B/P (MAP) 112/66 (81) Pulse Ox 99 99 O2 Delivery Room Air Room Air Room Air 11/18/17 11/18/17 11/18/17 11/18/17 07:32 08:06 10:30 11:49 Temp 97.7 97.9 97.7 97.9 Pulse 66 80 60 Resp 18 18 B/P (MAP) 135/75 (95) 112/66 106/62 (77) Pulse Ox 100 100 100 O2 Delivery Room Air Room Air Room Air 11/18/17 11/18/17 13:49 14:45 Temp 97.8 97.8 Pulse 65 Resp 18 B/P (MAP) 124/69 (87) Pulse Ox 100 99 O2 Delivery Room Air Room Air CJ DIAL MD Nov 18, 2017 18:59
[2017-11-18 19:00] VITALS: BP 115/60
[2017-11-18] MEDS: traZODone 50 MG TABLET. PO SCH (20:22)
[2017-11-18 23:00] VITALS: BP 101/53
[2017-11-19 03:00] VITALS: BP 105/55
[2017-11-19] MEDS: ACETAMINOPHEN 325 MG TABLET. PO PRN (03:53)
[2017-11-19 04:14] LABS: BASO % 1 % (0-3); EOS % 1 % (0-3); HEMATOCRIT 37.6 % (36.0-47.0); LYMPH # 0.9 x10^3/uL (1.0-4.8); LYMPH % 17 % (24-48); MEAN CORPUSCULAR HEMOGLOBIN 33 pg (25-35); MEAN CORPUSCULAR HGB CONC 32 g/dL (31-37); MEAN CORPUSCULAR VOLUME 103 fL (79-100); MONO % 4 % (0-9); NEUT % 76 % (31-73); PLATELET COUNT 176 x10^3/uL (140-400); RED BLOOD COUNT 3.65 x10^6/uL (3.50-5.40); RED CELL DISTRIBUTION WIDTH 19.9 % (11.5-14.5); WHITE BLOOD COUNT 5.2 x10^3/uL (4.0-11.0)
[2017-11-19 04:24] LABS: INR 3.8 (0.8-1.1)
[2017-11-19 04:36] LABS: CALCIUM 8.3 mg/dL (8.5-10.1); CREATININE 1.2 mg/dL (0.6-1.0); GFR 43.6; POTASSIUM 4.5 mmol/L (3.5-5.1)
[2017-11-19] MEDS: LEVOTHYROXINE 100 MCG TABLET PO SCH (06:05)
[2017-11-19] MEDS: ALPRAZolam 0.25 MG TABLET PO PRN (06:18)
[2017-11-19] MEDS: traMADol 50 MG TABLET PO PRN (06:19)
[2017-11-19] MEDS: PANTOPRAZOLE 40 MG TABLET.DR. PO SCH (06:19)
[2017-11-19] MEDS: CETIRIZINE HCL 10 MG TABLET. PO SCH (08:18)
[2017-11-19] MEDS: FERROUS SULFATE 325 MG TABLET. PO SCH (08:18)
[2017-11-19] MEDS: FUROSEMIDE 40 MG TABLET. PO SCH (08:18)
[2017-11-19] MEDS: CALCIUM CARB/VIT D3 500/200 TABLET. PO SCH (08:18)
[2017-11-19] MEDS: SPIRONOLACTONE 25 MG TABLET PO SCH (08:18)
[2017-11-19] MEDS: OMEGA-3 FATTY ACIDS/FISH OIL 1,000 MG CAPSULE. PO SCH (08:18)
[2017-11-19] MEDS: LINEZOLID 600 MG TABLET PO SCH (08:18)
[2017-11-19] MEDS: ALLOPURINOL 100 MG TABLET. PO SCH (08:19)
[2017-11-19] MEDS: HYDROXYCHLOROQUINE 200 MG TABLET PO SCH (08:19)
[2017-11-19] MEDS: LACTOBACILLUS RHAMNOSUS GG 1 CAPSULE. PO SCH (08:19)
[2017-11-19] MEDS: CALCITRIOL 0.25 MCG CAPSULE. PO SCH (08:19)
[2017-11-19] MEDS: PROPAFENONE 150 MG TABLET. PO SCH (08:22)
[2017-11-19] MEDS: PARoxetine 20 MG TABLET PO SCH (08:23)
[2017-11-19] MEDS: POTASSIUM CHLORIDE 20 MEQ TABLET.ER. PO SCH (08:23)
[2017-11-19] MEDS: POLYVINYL ALCOHOL 1.4% OPHTH SOLUTION 15ML BOTTLE. OU SCH (08:30)
--- NOTE | 2017-11-19 10:26 | PDOC ---
Infectious Disease Note Subjective Subjective c/o RLE aches and soreness - resolved Chronic loose stools Back to baseline and wanting to go home ROS ROS GEN: Denies fevers, chills, sweats HEENT: Denies blurred vision, sore throat CV: Denies chest pain RESP: Denies shortness of air, cough GI: Denies n/v NEURO: Denies confusion, dizziness MSK: Denies weakness, joint pain/swelling Vital Sign Vital Signs Vital Signs Date Time Temp Pulse Resp B/P (MAP) Pulse Ox O2 Delivery O2 Flow Rate FiO2 11/19/17 08:31 Room Air 11/19/17 08:22 72 110/54 11/19/17 06:19 18 96 11/19/17 03:00 97.8 97.8 Physical Exam PHYSICAL EXAM GENERAL: In bed, relaxed appearance HEENT: OC/OP clear LUNGS: Clear HEART: S1S2, no gallop, no murmur ABD: Soft, NT EXT: No edema, no cyanosis; RLE w/o redness or warmth. 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 3 SKIN: No rash IV: ok Labs Lab Laboratory Tests Test 11/19/17 03:45 White Blood Count 5.2 x10^3/uL (4.0-11.0) Red Blood Count 3.65 x10^6/uL (3.50-5.40) Hemoglobin 12.0 g/dL (12.0-15.5) Hematocrit 37.6 % (36.0-47.0) Mean Corpuscular Volume 103 fL (79-100) Mean Corpuscular Hemoglobin 33 pg (25-35) Mean Corpuscular Hemoglobin Concent 32 g/dL (31-37) Red Cell Distribution Width 19.9 % (11.5-14.5) Platelet Count 176 x10^3/uL (140-400) Neutrophils (%) (Auto) 76 % (31-73) Lymphocytes (%) (Auto) 17 % (24-48) Monocytes (%) (Auto) 4 % (0-9) Eosinophils (%) (Auto) 1 % (0-3) Basophils (%) (Auto) 1 % (0-3) Neutrophils # (Auto) 4.0 x10^3uL (1.8-7.7) Lymphocytes # (Auto) 0.9 x10^3/uL (1.0-4.8) Monocytes # (Auto) 0.2 x10^3/uL (0.0-1.1) Eosinophils # (Auto) 0.1 x10^3/uL (0.0-0.7) Basophils # (Auto) 0.0 x10^3/uL (0.0-0.2) Prothrombin Time 35.0 SEC (11.7-14.0) Prothromb Time International Ratio 3.8 (0.8-1.1) Sodium Level 142 mmol/L (136-145) Potassium Level 4.5 mmol/L (3.5-5.1) Chloride Level 107 mmol/L (98-107) Carbon Dioxide Level 25 mmol/L (21-32) Anion Gap 10 (6-14) Blood Urea Nitrogen 19 mg/dL (7-20) Creatinine 1.2 mg/dL (0.6-1.0) Estimated GFR (Cockcroft-Gault) 43.6 Glucose Level 79 mg/dL (70-99) Calcium Level 8.3 mg/dL (8.5-10.1) Objective Assessment 1. 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 improving - no erythema/pain at all 2. History of rheumatoid arthritis with a second toe surgery. 3. Degenerative joint disease. 4. Lung cancer, status post lobectomy. 5. Left shoulder surgery. 6. Right hip surgery. 7. Gastroesophageal reflux disease. 8. Depression. 9. History of congestive heart failure. 10. History of atrial fibrillation. 11. Anxiety and depression. 12. History of transient ischemic attack. 13. Chronic lymphedema of bilateral lower extremity. 14. Bilateral lower extremity varicosities Plan Plan of Care Discontinue ceftriaxone,add linezolid begin Cefpodoxime/doxy for 5 more days Elevate lower extremity. Local care. Probiotics. Ok to d/c from ID standpoint NISHA HU MD Nov 19, 2017 10:26
--- NOTE | 2017-11-19 10:27 | PDOC ---
PULMONARY PROGRESS NOTES Subjective c/o no soa Vitals Vital Signs Date Time Temp Pulse Resp B/P (MAP) Pulse Ox O2 Delivery O2 Flow Rate FiO2 11/19/17 08:31 Room Air 11/19/17 08:22 72 110/54 11/19/17 06:19 18 96 11/19/17 03:00 97.8 97.8 General: Alert, Oriented X4, No acute distress Lungs: Clear Cardiovascular: S1, S2 Abdomen: Soft, Non-tender Neuro Exam: Alert Extremities: Other (less erythema) Labs Laboratory Tests Test 11/18/17 04:05 11/19/17 03:45 White Blood Count 5.8 x10^3/uL (4.0-11.0) 5.2 x10^3/uL (4.0-11.0) Red Blood Count 3.40 x10^6/uL (3.50-5.40) 3.65 x10^6/uL (3.50-5.40) Hemoglobin 11.2 g/dL (12.0-15.5) 12.0 g/dL (12.0-15.5) Hematocrit 34.7 % (36.0-47.0) 37.6 % (36.0-47.0) Mean Corpuscular Volume 102 fL (79-100) 103 fL (79-100) Mean Corpuscular Hemoglobin 33 pg (25-35) 33 pg (25-35) Mean Corpuscular Hemoglobin Concent 32 g/dL (31-37) 32 g/dL (31-37) Red Cell Distribution Width 19.6 % (11.5-14.5) 19.9 % (11.5-14.5) Platelet Count 178 x10^3/uL (140-400) 176 x10^3/uL (140-400) Neutrophils (%) (Auto) 78 % (31-73) 76 % (31-73) Lymphocytes (%) (Auto) 17 % (24-48) 17 % (24-48) Monocytes (%) (Auto) 3 % (0-9) 4 % (0-9) Eosinophils (%) (Auto) 1 % (0-3) 1 % (0-3) Basophils (%) (Auto) 1 % (0-3) 1 % (0-3) Neutrophils # (Auto) 4.5 x10^3uL (1.8-7.7) 4.0 x10^3uL (1.8-7.7) Lymphocytes # (Auto) 1.0 x10^3/uL (1.0-4.8) 0.9 x10^3/uL (1.0-4.8) Monocytes # (Auto) 0.2 x10^3/uL (0.0-1.1) 0.2 x10^3/uL (0.0-1.1) Eosinophils # (Auto) 0.0 x10^3/uL (0.0-0.7) 0.1 x10^3/uL (0.0-0.7) Basophils # (Auto) 0.1 x10^3/uL (0.0-0.2) 0.0 x10^3/uL (0.0-0.2) Prothrombin Time 34.7 SEC (11.7-14.0) 35.0 SEC (11.7-14.0) Prothromb Time International Ratio 3.7 (0.8-1.1) 3.8 (0.8-1.1) Sodium Level 143 mmol/L (136-145) 142 mmol/L (136-145) Potassium Level 4.4 mmol/L (3.5-5.1) 4.5 mmol/L (3.5-5.1) Chloride Level 107 mmol/L (98-107) 107 mmol/L (98-107) Carbon Dioxide Level 28 mmol/L (21-32) 25 mmol/L (21-32) Anion Gap 8 (6-14) 10 (6-14) Blood Urea Nitrogen 20 mg/dL (7-20) 19 mg/dL (7-20) Creatinine 1.2 mg/dL (0.6-1.0) 1.2 mg/dL (0.6-1.0) Estimated GFR (Cockcroft-Gault) 43.6 43.6 Glucose Level 78 mg/dL (70-99) 79 mg/dL (70-99) Calcium Level 8.1 mg/dL (8.5-10.1) 8.3 mg/dL (8.5-10.1) Laboratory Tests Test 11/19/17 03:45 White Blood Count 5.2 x10^3/uL (4.0-11.0) Red Blood Count 3.65 x10^6/uL (3.50-5.40) Hemoglobin 12.0 g/dL (12.0-15.5) Hematocrit 37.6 % (36.0-47.0) Mean Corpuscular Volume 103 fL (79-100) Mean Corpuscular Hemoglobin 33 pg (25-35) Mean Corpuscular Hemoglobin Concent 32 g/dL (31-37) Red Cell Distribution Width 19.9 % (11.5-14.5) Platelet Count 176 x10^3/uL (140-400) Neutrophils (%) (Auto) 76 % (31-73) Lymphocytes (%) (Auto) 17 % (24-48) Monocytes (%) (Auto) 4 % (0-9) Eosinophils (%) (Auto) 1 % (0-3) Basophils (%) (Auto) 1 % (0-3) Neutrophils # (Auto) 4.0 x10^3uL (1.8-7.7) Lymphocytes # (Auto) 0.9 x10^3/uL (1.0-4.8) Monocytes # (Auto) 0.2 x10^3/uL (0.0-1.1) Eosinophils # (Auto) 0.1 x10^3/uL (0.0-0.7) Basophils # (Auto) 0.0 x10^3/uL (0.0-0.2) Prothrombin Time 35.0 SEC (11.7-14.0) Prothromb Time International Ratio 3.8 (0.8-1.1) Sodium Level 142 mmol/L (136-145) Potassium Level 4.5 mmol/L (3.5-5.1) Chloride Level 107 mmol/L (98-107) Carbon Dioxide Level 25 mmol/L (21-32) Anion Gap 10 (6-14) Blood Urea Nitrogen 19 mg/dL (7-20) Creatinine 1.2 mg/dL (0.6-1.0) Estimated GFR (Cockcroft-Gault) 43.6 Glucose Level 79 mg/dL (70-99) Calcium Level 8.3 mg/dL (8.5-10.1) Medications Active Scripts Medications Dose Route/Sig Max Daily Dose Days Date Category Keflex (Cephalexin) 250 Mg Capsule 1 Cap PO TID 10/23/17 Rx Klor-Con M20 (Potassium Chloride) 20 Meq Tab.er.prt 20 Meq PO DAILYWBKFT 10/23/17 Rx Culturelle (Lactobacillus Rhamnosus Gg) 1 Each Cap.sprink 1 Cap PO BID 10/23/17 Rx Furosemide 40 Mg Tablet 40 Mg PO DAILY 10/23/17 Rx Calcitriol 0.25 Mcg Capsule 0.25 Mcg PO DAILY 10/23/17 Rx Calcitriol 0.25 Mcg Capsule 10/20/17 Reported Metolazone 5 Mg Tablet 07/28/17 Reported Aldactone (Spironolactone) 25 Mg Tablet 1 Tab PO DAILY 07/01/17 Rx Methotrexate (Methotrexate Sodium) 2.5 Mg Tablet 7 Tab PO Saturday06/23/17 Reported [hydroxyl-chloroquine] 200 Mg PO DAILY08 05/18/17 Reported Calcium + Vitamin D Tablet (Calcium Carbonate/Vitamin D3) 1 Each Tablet 1 Each PO BID 05/18/17 Reported Claritin (Loratadine) 10 Mg Tablet 1 Tab PO DAILY PRN 05/18/17 Reported Coumadin (Warfarin Sodium) 6 Mg Tablet 6 Mg PO ,,TH,SA,DUNCAN 05/18/17 Reported Acetaminophen 500 Mg Tablet 1 Tab PO PRN Q6HRS PRN 03/28/16 Reported Mucinex Dm Er 600-30 Mg Tablet (Guaifenesin/Dextromethorphan) 1 Each Tab.er.12h 1 Tab PO PRN Q12HRS 03/28/16 Reported Trazodone Hcl 50 Mg Tablet 25 Mg PO HS 03/28/16 Reported Propafenone Hcl 150 Mg Tablet 150 Mg PO BID 03/28/16 Reported Systane 0.3-0.4% Eye Drops (Propylene Glycol/Peg 400/Pf) 1 Each Droperette 1 Each OP DAILY 12/26/15 Reported Xanax (Alprazolam) 0.25 Mg Tablet 1 Tab PO PRN TID PRN 12/23/15 Reported Biotin 1 Mg Capsule 1,000 Mg PO BID 12/23/15 Reported [lutein] 1 Tab BID 12/23/15 Reported [Iron ] 1 Tab DAILY 12/23/15 Reported Omeprazole 40 Mg Capsule.dr 40 Mg PO DAILY 11/28/13 Reported Tramadol Hcl 50 Mg Tablet 50 Mg PO PRN Q6HRS PRN 11/28/13 Reported Fish Oil 1,000 Mg Softgel ([place]-3 Fatty Acids/Fish Oil) 1 Each Capsule 1 Each PO DAILY 11/28/13 Reported Allopurinol 100 Mg Tablet 100 Mg PO DAILY 11/28/13 Reported Paxil (Paroxetine Hcl) 40 Mg Tablet 20 Mg PO DAILY 11/28/13 Reported Levothyroxine Sodium 100 Mcg Tablet 100 Mcg PO DAILY 11/28/13 Reported Impression . 1. Subjective dyspnea. Clinically, she appears to be doing well. There is no infiltrate seen on the chest x-ray. The patient is already on anticoagulation and clinically, I do not suspect thromboembolic disease in the setting of a therapeutic INR. At this point, I do not see any further workup and we will monitor clinically. 2. 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 Chest x-ray is clear. 3. Lower extremity cellulitis. Venous Dopplers showing no evidence of deep venous thrombosis. 4. suspect anxiety disorder Plan . 1. respiratory status stable 2. Continue anticoagulation per PCP. 3. Antibiotic per Infectious Disease. 4. PRN bronchodilators. 5. No further pulmonary workup at this point. will sign off GUNNAR RAND MD Nov 19, 2017 10:27
[2017-11-19] MEDS ORDERED: CEFPODOXIME PROXETIL 100 MG TABLET. PO SCH (10:30)
[2017-11-19] MEDS ORDERED: CEFP200T PO (10:55)
[2017-11-19] MEDS ORDERED: DOXY100C2 PO (10:55)
[2017-11-19 11:21] VITALS: BP 105/55
--- NOTE | 2017-11-19 11:25 | PDOC3 ---
Discharge Summary Visit Information Date of Admission: Nov 13, 2017 Date of Discharge: Nov 19, 2017 Admitting Diagnosis Comment: Right lower extremity cellulitis, no open wounds no weeping lesions. Started on vancomycin by emergency room. To be discharged on by mouth doxycycline and cefpodoxime I'm for 5 days as per infectious disease Hypertension, CHF, troponin leak, CK-MB, RA on methotrexate, Sepsis, seizures by mouth a with leukocytosis 18 Diabetes type 2 chronic stable Mild from cytopenia Final Diagnosis Problems Medical Problems: (1) Cellulitis of right lower extremity Status: Acute (2) Cellulitis of right lower extremity without foot Status: Acute Brief Hospital Course Allergies Allergies Coded Allergies Type Severity Reaction Last Updated Verified albuterol Allergy Severe "CAN'T BREATHE" 11/14/17 Yes adhesive Allergy Intermediate "Breaks out" 04/02/16 Yes codeine Allergy Intermediate "Breaks out." 04/02/16 Yes oxycodone Allergy Intermediate Rash 04/02/16 Yes duloxetine Adverse Reaction Intermediate edema 04/02/16 Yes pregabalin Adverse Reaction Intermediate edema 04/02/16 Yes Vital Signs Vital Signs Date Time Temp Pulse Resp B/P (MAP) Pulse Ox O2 Delivery O2 Flow Rate FiO2 11/19/17 08:31 Room Air 11/19/17 08:22 72 110/54 11/19/17 06:19 18 96 11/19/17 03:00 97.8 97.8 Lab Results Laboratory Tests Test 11/18/17 04:05 11/19/17 03:45 White Blood Count 5.8 x10^3/uL (4.0-11.0) 5.2 x10^3/uL (4.0-11.0) Red Blood Count 3.40 x10^6/uL (3.50-5.40) 3.65 x10^6/uL (3.50-5.40) Hemoglobin 11.2 g/dL (12.0-15.5) 12.0 g/dL (12.0-15.5) Hematocrit 34.7 % (36.0-47.0) 37.6 % (36.0-47.0) Mean Corpuscular Volume 102 fL (79-100) 103 fL (79-100) Mean Corpuscular Hemoglobin 33 pg (25-35) 33 pg (25-35) Mean Corpuscular Hemoglobin Concent 32 g/dL (31-37) 32 g/dL (31-37) Red Cell Distribution Width 19.6 % (11.5-14.5) 19.9 % (11.5-14.5) Platelet Count 178 x10^3/uL (140-400) 176 x10^3/uL (140-400) Neutrophils (%) (Auto) 78 % (31-73) 76 % (31-73) Lymphocytes (%) (Auto) 17 % (24-48) 17 % (24-48) Monocytes (%) (Auto) 3 % (0-9) 4 % (0-9) Eosinophils (%) (Auto) 1 % (0-3) 1 % (0-3) Basophils (%) (Auto) 1 % (0-3) 1 % (0-3) Neutrophils # (Auto) 4.5 x10^3uL (1.8-7.7) 4.0 x10^3uL (1.8-7.7) Lymphocytes # (Auto) 1.0 x10^3/uL (1.0-4.8) 0.9 x10^3/uL (1.0-4.8) Monocytes # (Auto) 0.2 x10^3/uL (0.0-1.1) 0.2 x10^3/uL (0.0-1.1) Eosinophils # (Auto) 0.0 x10^3/uL (0.0-0.7) 0.1 x10^3/uL (0.0-0.7) Basophils # (Auto) 0.1 x10^3/uL (0.0-0.2) 0.0 x10^3/uL (0.0-0.2) Prothrombin Time 34.7 SEC (11.7-14.0) 35.0 SEC (11.7-14.0) Prothromb Time International Ratio 3.7 (0.8-1.1) 3.8 (0.8-1.1) Sodium Level 143 mmol/L (136-145) 142 mmol/L (136-145) Potassium Level 4.4 mmol/L (3.5-5.1) 4.5 mmol/L (3.5-5.1) Chloride Level 107 mmol/L (98-107) 107 mmol/L (98-107) Carbon Dioxide Level 28 mmol/L (21-32) 25 mmol/L (21-32) Anion Gap 8 (6-14) 10 (6-14) Blood Urea Nitrogen 20 mg/dL (7-20) 19 mg/dL (7-20) Creatinine 1.2 mg/dL (0.6-1.0) 1.2 mg/dL (0.6-1.0) Estimated GFR (Cockcroft-Gault) 43.6 43.6 Glucose Level 78 mg/dL (70-99) 79 mg/dL (70-99) Calcium Level 8.1 mg/dL (8.5-10.1) 8.3 mg/dL (8.5-10.1) Laboratory Tests Test 11/19/17 03:45 White Blood Count 5.2 x10^3/uL (4.0-11.0) Red Blood Count 3.65 x10^6/uL (3.50-5.40) Hemoglobin 12.0 g/dL (12.0-15.5) Hematocrit 37.6 % (36.0-47.0) Mean Corpuscular Volume 103 fL (79-100) Mean Corpuscular Hemoglobin 33 pg (25-35) Mean Corpuscular Hemoglobin Concent 32 g/dL (31-37) Red Cell Distribution Width 19.9 % (11.5-14.5) Platelet Count 176 x10^3/uL (140-400) Neutrophils (%) (Auto) 76 % (31-73) Lymphocytes (%) (Auto) 17 % (24-48) Monocytes (%) (Auto) 4 % (0-9) Eosinophils (%) (Auto) 1 % (0-3) Basophils (%) (Auto) 1 % (0-3) Neutrophils # (Auto) 4.0 x10^3uL (1.8-7.7) Lymphocytes # (Auto) 0.9 x10^3/uL (1.0-4.8) Monocytes # (Auto) 0.2 x10^3/uL (0.0-1.1) Eosinophils # (Auto) 0.1 x10^3/uL (0.0-0.7) Basophils # (Auto) 0.0 x10^3/uL (0.0-0.2) Prothrombin Time 35.0 SEC (11.7-14.0) Prothromb Time International Ratio 3.8 (0.8-1.1) Sodium Level 142 mmol/L (136-145) Potassium Level 4.5 mmol/L (3.5-5.1) Chloride Level 107 mmol/L (98-107) Carbon Dioxide Level 25 mmol/L (21-32) Anion Gap 10 (6-14) Blood Urea Nitrogen 19 mg/dL (7-20) Creatinine 1.2 mg/dL (0.6-1.0) Estimated GFR (Cockcroft-Gault) 43.6 Glucose Level 79 mg/dL (70-99) Calcium Level 8.3 mg/dL (8.5-10.1) Brief Hospital Course Ms. Lee is a 77 old female, known patient of Dr. Ross for CHF, history of chronic lymphedema, also has CKD known patient of Dr. Chandra ruiz, is in because of "right lower extremity cellulitis". I did see her at the emergency room. I was not really impressed with a right lower extremity there was absence of significant swelling, no redness tenderness, and there was no open or weeping lesions. ER was started on the IV vancomycin per pharmacy protocol. Infectious disease was consulted. We had to watch or closely monitor CKD as vancomycin is renal toxic. Eventually she is doing better. She will discharge on her current home health. Only new medications is cefpodoxime 200 twice a day and doxycycline 100 by mouth twice a day for 5 more days as per infectious disease. The rest of her home medications she can continue to take. She can be very particular about her potassium as to what Dr. Chandra ruiz has discharged her with. Because she usually would go low potassium in the hospital secondary to IV Lasix for CHF or lymphedema. She understands her home regimen and is quite knowledgeable. Patient seen and examined Discharge disposition to home with current home health Discharge medications to antibiotics sent to her pharmacy consults performed infectious disease procedures none Time 31 minutes Discharge Information Condition at Discharge: Improved, Stable Disposition/Orders: D/C to Home w/ HH Scheduled Allopurinol (Allopurinol), 100 MG PO DAILY, (Reported) Biotin (Biotin), 1,000 MG PO BID, (Reported) Calcitriol (Calcitriol), 0.25 MCG PO DAILY Calcium Carbonate/Vitamin D3 (Calcium + Vitamin D Tablet), 1 EACH PO BID, ( Reported) Cefpodoxime Proxetil (Cefpodoxime Proxetil), 1 TAB PO BID Doxycycline Hyclate (Doxycycline Hyclate), 1 CAP PO BID Furosemide (Furosemide), 40 MG PO DAILY Guaifenesin/Dextromethorphan (Mucinex Dm Er 600-30 Mg Tablet), 1 TAB PO PRN Q12HRS, (Reported) Lactobacillus Rhamnosus Gg (Culturelle), 1 CAP PO BID Levothyroxine Sodium (Levothyroxine Sodium), 100 MCG PO DAILY, (Reported) Methotrexate Sodium (Methotrexate), 7 TAB PO SATURDAY, (Reported) [place]-3 Fatty Acids/Fish Oil (Fish Oil 1,000 Mg Softgel), 1 EACH PO DAILY, ( Reported) Omeprazole (Omeprazole), 40 MG PO DAILY, (Reported) Paroxetine Hcl (Paxil), 20 MG PO DAILY, (Reported) Potassium Chloride (Klor-Con M20), 20 MEQ PO DAILYWBKFT Propafenone Hcl (Propafenone Hcl), 150 MG PO BID, (Reported) Propylene Glycol/Peg 400/Pf (Systane 0.3-0.4% Eye Drops), 1 EACH OP DAILY, ( Reported) Spironolactone (Aldactone), 1 TAB PO DAILY Trazodone Hcl (Trazodone Hcl), 25 MG PO HS, (Reported) Warfarin Sodium (Coumadin), 6 MG PO ,,,sa,still, (Reported) [Iron ], 1 TAB DAILY, (Reported) [hydroxyl-chloroquine], 200 MG PO DAILY08, (Reported) [lutein], 1 TAB BID, (Reported) Scheduled PRN Acetaminophen (Acetaminophen), 1 TAB PO PRN Q6HRS PRN for MILD PAIN / TEMP, ( Reported) Alprazolam (Xanax), 1 TAB PO PRN TID PRN for ANXIETY / AGITATION, (Reported) Loratadine (Claritin), 1 TAB PO DAILY PRN for ALLERGIES, (Reported) Tramadol Hcl (Tramadol Hcl), 50 MG PO PRN Q6HRS PRN for PAIN, (Reported) Miscellaneous Medications Calcitriol (Calcitriol), (Reported) Metolazone (Metolazone), (Reported) Discontinued Medications Cephalexin (Keflex), 1 CAP PO TID PAMELA GORDON MD Nov 19, 2017 11:25
[2017-11-19] MEDS ORDERED: DOXYCYCLINE HYCLATE 100 MG TABLET PO SCH (21:00)
[2017-11-20] MEDS ORDERED: METHOTREXATE SODIUM 2.5 MG TABLET PO SCH (16:00)
== END 2017-11-19 12:39 | disposition home or self-care (01) | DRG 872 ==
LOC: ER 15:41 → 2 SOUTH 17:12 → 5 NORTH 11-14 19:18
PROVIDERS: ADMIT Internal Medicine; ATTEND Internal Medicine
DX: A41.9 Sepsis, unspecified organism (principal); E11.22 Type 2 diabetes mellitus with diabetic chronic kidney disease; E86.0 Dehydration; E87.5 Hyperkalemia; C34.90 Malignant neoplasm of unspecified part of unspecified bronchus or lung; I13.0 Hypertensive heart and chronic kidney disease with heart failure and stage 1 through stage 4 chronic kidney disease, or unspecified chronic kidney disease; I48.2 Chronic atrial fibrillation; I50.9 Heart failure, unspecified; L03.115 Cellulitis of right lower limb; E03.9 Hypothyroidism, unspecified; E78.5 Hyperlipidemia, unspecified; E87.6 Hypokalemia; F32.9 Major depressive disorder, single episode, unspecified; F41.9 Anxiety disorder, unspecified; I35.1 Nonrheumatic aortic (valve) insufficiency; K21.9 Gastro-esophageal reflux disease without esophagitis; M06.9 Rheumatoid arthritis, unspecified; I83.93 Asymptomatic varicose veins of bilateral lower extremities; M10.9 Gout, unspecified; M19.90 Unspecified osteoarthritis, unspecified site; N18.3 Chronic kidney disease, stage 3 (moderate); T50.1X5A Adverse effect of loop [high-ceiling] diuretics, initial encounter; Z79.01 Long term (current) use of anticoagulants; Z79.899 Other long term (current) drug therapy; Z82.49 Family history of ischemic heart disease and other diseases of the circulatory system; Z85.118 Personal history of other malignant neoplasm of bronchus and lung; Z86.73 Personal history of transient ischemic attack (TIA), and cerebral infarction without residual deficits; Z95.0 Presence of cardiac pacemaker; Z88.6 Allergy status to analgesic agent; Z88.8 Allergy status to other drugs, medicaments and biological substances; Z91.048 Other nonmedicinal substance allergy status
CPT/HCPCS: 36415; 80048; 81001; 82575; 82728; 83540; 83550; 83970; 84156; 84484; 85007; 85025; 85610; 85651; 85730; 87040; 93970; 93971; 96374; J0696; J2405; J3370; J7030; 99285-25

== ENCOUNTER 2017-12-11 13:50 | Inpatient (IN) | payer MEDICARE ==
[2017-12-11 14:58] LABS: BASO # 0.1 x10^3/uL (0.0-0.2); BASO % 0 % (0-3); EOS # 0.1 x10^3/uL (0.0-0.7); EOS % 0 % (0-3); HEMATOCRIT 36.7 % (36.0-47.0); HEMOGLOBIN 11.6 g/dL (12.0-15.5); LYMPH # 0.5 x10^3/uL (1.0-4.8); LYMPH % 4 % (24-48); MEAN CORPUSCULAR HEMOGLOBIN 33 pg (25-35); MEAN CORPUSCULAR HGB CONC 32 g/dL (31-37); MEAN CORPUSCULAR VOLUME 103 fL (79-100); MONO # 0.6 x10^3/uL (0.0-1.1); MONO % 4 % (0-9); NEUT # 13.6 x10^3uL (1.8-7.7); NEUT % 92 % (31-73); PLATELET COUNT 279 x10^3/uL (140-400); RED BLOOD COUNT 3.57 x10^6/uL (3.50-5.40); RED CELL DISTRIBUTION WIDTH 20.5 % (11.5-14.5); WHITE BLOOD COUNT 14.9 x10^3/uL (4.0-11.0)
[2017-12-11 15:05] LABS: ADD MAN DIFF? YES
[2017-12-11 15:14] LABS: BILIRUBIN,URINE NEGATIVE (NEG); CLARITY,URINE CLEAR; COLOR,URINE YELLOW; GLUCOSE,URINE NEGATIVE (NEG); NITRITE,URINE NEGATIVE (NEG); PH,URINE 6.5; PROTEIN,URINE NEGATIVE (NEG-TRACE); UROBILINOGEN,URINE 0.2 mg/dL (0.2 mg/dL)
[2017-12-11 15:27] LABS: BACTERIA,URINE 0 /HPF (0-FEW); HYALINE CASTS, URINE MANY /HPF
[2017-12-11 15:32] LABS: TROPONINI 0.041 ng/mL (0.000-0.055)
[2017-12-11 15:34] LABS: ALBUMIN 3.1 g/dL (3.4-5.0); ALBUMIN/GLOBULIN RATIO 0.9 (1.0-1.7); ALK PHOS 234 U/L (46-116); ALT (SGPT) 183 U/L (14-59); ANION GAP 9 (6-14); AST (SGOT) 276 U/L (15-37); BLOOD UREA NITROGEN 37 mg/dL (7-20); BUN/CREATININE RATIO 26 (6-20); CALCIUM 8.5 mg/dL (8.5-10.1); CARBON DIOXIDE 24 mmol/L (21-32); CHLORIDE 104 mmol/L (98-107); CREATININE 1.4 mg/dL (0.6-1.0); GFR 36.5; GLUCOSE 114 mg/dL (70-99); SODIUM 137 mmol/L (136-145); TOTAL BILIRUBIN 0.6 mg/dL (0.2-1.0); TOTAL PROTEIN 6.6 g/dL (6.4-8.2)
[2017-12-11 15:40] LABS: CKMB INDEX 4.9 % (0-4); CKMB MASS 2.5 ng/mL (0.0-3.6); CREATINE KINASE 51 U/L (26-192)
[2017-12-11 15:44] LABS: POTASSIUM 8.1 mmol/L (3.5-5.1)
[2017-12-11] MEDS ORDERED: CALCIUM GLUCONATE 100 MG/ML VIAL for DOSE IN MG. IVP (16:00)
[2017-12-11] MEDS ORDERED: ALBUTEROL SULFATE 2.5 MG/3 ML NEBU. NEB (16:00)
[2017-12-11] MEDS: FUROSEMIDE 40 MG/4 ML VIAL. IVP (16:48)
[2017-12-11] MEDS: DEXTROSE 50% 25 GM / 50ML DISP.SYRIN. IV (16:48)
[2017-12-11] MEDS: CALCIUM CHLORIDE IV (16:48)
[2017-12-11] MEDS: DEXTROSE 5% IV (16:48)
[2017-12-11] MEDS: IV NORMAL SALINE 1000ML BAG 1,000 ML IV (16:49)
[2017-12-11] MEDS: INSULIN REGULAR 100 UNIT/ML 10ML VIAL. IV (16:50)
[2017-12-11] MEDS: SODIUM POLYSTYRENE SULFONATE 15 GM/60 ML ORAL.SUSP. PO ×2 (16:52→23:19)
[2017-12-11 17:02] LABS: % BANDS 4 % (0-9); % EOS 1 % (0-5); % LYMPHS 3 % (24-48); % MONOS 7 % (0-10); % SEGS 85 % (35-66); ANISOCYTOSIS MOD; PLT ESTIMATE ADEQUATE (ADEQUATE)
[2017-12-11 18:54] LABS: ANION GAP 12 (6-14); BLOOD UREA NITROGEN 35 mg/dL (7-20); CALCIUM 9.7 mg/dL (8.5-10.1); CARBON DIOXIDE 24 mmol/L (21-32); CHLORIDE 104 mmol/L (98-107); CREATININE 1.3 mg/dL (0.6-1.0); GFR 39.7; GLUCOSE 90 mg/dL (70-99); POTASSIUM 5.6 mmol/L (3.5-5.1); SODIUM 140 mmol/L (136-145)
[2017-12-11] MEDS ORDERED: traZODone 50 MG TABLET. PO (21:00)
[2017-12-11] MEDS: ALPRAZolam 0.25 MG TABLET PO (21:17)
[2017-12-11] MEDS: traMADol 50 MG TABLET PO (21:17)
[2017-12-11] MEDS ORDERED: traMADol 50 MG TABLET PO (23:00)
[2017-12-11] MEDS: PROPAFENONE 150 MG TABLET. PO (23:19)
[2017-12-11] MEDS: traZODone 50 MG TABLET. PO (23:19)
[2017-12-11 23:35] LABS: INR 1.7 (0.8-1.1)
[2017-12-12] MEDS: WARFARIN 3 MG TABLET. PO ×2 (00:15→16:41)
[2017-12-12 04:51] LABS: ADD MAN DIFF? NO
[2017-12-12 05:01] LABS: BASO % 0 % (0-3); EOS # 0.1 x10^3/uL (0.0-0.7); EOS % 1 % (0-3); HEMATOCRIT 29.6 % (36.0-47.0); HEMOGLOBIN 9.8 g/dL (12.0-15.5); LYMPH # 0.8 x10^3/uL (1.0-4.8); LYMPH % 8 % (24-48); MEAN CORPUSCULAR HEMOGLOBIN 34 pg (25-35); MEAN CORPUSCULAR HGB CONC 33 g/dL (31-37); MEAN CORPUSCULAR VOLUME 103 fL (79-100); MONO # 0.6 x10^3/uL (0.0-1.1); MONO % 6 % (0-9); NEUT % 85 % (31-73); PLATELET COUNT 217 x10^3/uL (140-400); RED BLOOD COUNT 2.89 x10^6/uL (3.50-5.40); RED CELL DISTRIBUTION WIDTH 20.8 % (11.5-14.5); WHITE BLOOD COUNT 9.4 x10^3/uL (4.0-11.0)
[2017-12-12 05:33] LABS: ANION GAP 8 (6-14); BLOOD UREA NITROGEN 25 mg/dL (7-20); CALCIUM 8.2 mg/dL (8.5-10.1); CARBON DIOXIDE 28 mmol/L (21-32); CHLORIDE 100 mmol/L (98-107); GFR 53.8; GLUCOSE 80 mg/dL (70-99); SODIUM 136 mmol/L (136-145)
[2017-12-12 05:35] LABS: POTASSIUM 2.4 mmol/L (3.5-5.1)
[2017-12-12] MEDS ORDERED: PROPAFENONE 150 MG TABLET. PO (06:00)
[2017-12-12] MEDS: PROPAFENONE 150 MG TABLET. PO ×3 (06:11→22:25)
[2017-12-12] MEDS: ACETAMINOPHEN 500 MG TABLET PO ×3 (06:11→17:49)
[2017-12-12] MEDS: POTASSIUM CHLORIDE 20 MEQ TABLET.ER. PO ×6 (06:12→20:22)
[2017-12-12] MEDS: LEVOTHYROXINE 100 MCG TABLET PO (07:13)
[2017-12-12] MEDS: OMEGA-3 FATTY ACIDS/FISH OIL 1,000 MG CAPSULE. PO (08:52)
[2017-12-12] MEDS: CALCIUM CARB/VIT D3 500/200 TABLET. PO ×2 (08:52→16:52)
[2017-12-12] MEDS: PARoxetine 20 MG TABLET PO (08:53)
[2017-12-12] MEDS: PANTOPRAZOLE 40 MG TABLET.DR. PO (08:53)
[2017-12-12] MEDS: FUROSEMIDE 80 MG TABLET. PO (08:53)
[2017-12-12] MEDS: ALLOPURINOL 100 MG TABLET. PO (08:53)
[2017-12-12] MEDS: HYDROXYCHLOROQUINE 200 MG TABLET PO (08:53)
[2017-12-12] MEDS: FERROUS SULFATE 325 MG TABLET. PO (08:53)
[2017-12-12] MEDS ORDERED: BIOTIN 1000 MG PO (09:00)
[2017-12-12] MEDS: POLYVINYL ALCOHOL 1.4% OPHTH SOLUTION 15ML BOTTLE. OU (09:00)
[2017-12-12] MEDS ORDERED: CETIRIZINE HCL 10 MG TABLET. PO (09:00)
[2017-12-12 09:40] LABS: POTASSIUM 3.2 mmol/L (3.5-5.1)
[2017-12-12 11:45] LABS: RETIC COUNT 2.1 % (0.5-2.5)
[2017-12-12 12:28] LABS: % SAT IRON 47 % (15-34); IRON,SERUM 108 ug/dL (50-170)
[2017-12-12 12:39] LABS: THYROID STIM HORMONE (TSH) 1.901 uIU/mL (0.358-3.74)
[2017-12-12 12:42] LABS: FERRITIN 141 ng/mL (8-252); LIPASE 179 U/L (73-393); URIC ACID 6.3 mg/dL (2.6-6.0)
[2017-12-12 12:42] LABS: LACTATE DEHYDROGENASE 252 U/L (81-234)
[2017-12-12] MEDS: ALPRAZolam 0.25 MG TABLET PO ×2 (14:38→22:24)
[2017-12-12] MEDS: traMADol 50 MG TABLET PO ×2 (14:38→20:23)
[2017-12-12] MEDS ORDERED: WARFARIN 3 MG TABLET. PO (16:00)
[2017-12-12 17:22] LABS: POTASSIUM 2.4 mmol/L (3.5-5.1)
[2017-12-12] MEDS: traZODone 50 MG TABLET. PO (22:24)
[2017-12-13 01:43] LABS: POTASSIUM 3.7 mmol/L (3.5-5.1)
[2017-12-13] MEDS: PROPAFENONE 150 MG TABLET. PO ×3 (06:23→21:38)
[2017-12-13] MEDS: LEVOTHYROXINE 100 MCG TABLET PO (06:24)
[2017-12-13] MEDS: traMADol 50 MG TABLET PO ×3 (06:25→21:40)
[2017-12-13 08:27] LABS: INR 2.1 (0.8-1.1); PROTHROMBIN TIME PATIENT 22.3 SEC (11.7-14.0)
[2017-12-13 08:31] LABS: POTASSIUM 3.5 mmol/L (3.5-5.1)
[2017-12-13 08:36] LABS: CREATINE KINASE 30 U/L (26-192)
[2017-12-13] MEDS: FERROUS SULFATE 325 MG TABLET. PO (09:12)
[2017-12-13] MEDS: HYDROXYCHLOROQUINE 200 MG TABLET PO (09:12)
[2017-12-13] MEDS: CALCIUM CARB/VIT D3 500/200 TABLET. PO ×2 (09:12→17:56)
[2017-12-13] MEDS: OMEGA-3 FATTY ACIDS/FISH OIL 1,000 MG CAPSULE. PO (09:12)
[2017-12-13] MEDS: PARoxetine 20 MG TABLET PO (09:12)
[2017-12-13] MEDS: PANTOPRAZOLE 40 MG TABLET.DR. PO (09:12)
[2017-12-13] MEDS: POLYVINYL ALCOHOL 1.4% OPHTH SOLUTION 15ML BOTTLE. OU (09:13)
[2017-12-13] MEDS: ALLOPURINOL 100 MG TABLET. PO (09:13)
[2017-12-13] MEDS: POTASSIUM CHLORIDE 20 MEQ TABLET.ER. PO ×3 (09:17→20:15)
[2017-12-13 12:51] LABS: CALCIUM 8.1 mg/dL (8.5-10.1)
[2017-12-13 12:54] LABS: POTASSIUM 3.9 mmol/L (3.5-5.1)
[2017-12-13] MEDS: ALPRAZolam 0.25 MG TABLET PO (13:03)
[2017-12-13 13:22] LABS: MAGNESIUM 1.4 mg/dL (1.8-2.4)
[2017-12-13] MEDS: WARFARIN 3 MG TABLET. PO (15:42)
[2017-12-13] MEDS ORDERED: POTASSIUM CHLORIDE 20 MEQ TABLET.ER. PO (17:00)
[2017-12-13 19:12] LABS: POTASSIUM 3.3 mmol/L (3.5-5.1)
[2017-12-13] MEDS: traZODone 50 MG TABLET. PO (21:37)
[2017-12-14 04:15] LABS: POTASSIUM 3.9 mmol/L (3.5-5.1)
[2017-12-14 04:16] LABS: INR 2.6 (0.8-1.1); PROTHROMBIN TIME PATIENT 26.5 SEC (11.7-14.0)
[2017-12-14 04:23] LABS: CREATINE KINASE 21 U/L (26-192)
[2017-12-14] MEDS: ACETAMINOPHEN 500 MG TABLET PO (04:38)
[2017-12-14] MEDS: POTASSIUM CHLORIDE 20 MEQ TABLET.ER. PO ×3 (06:00→12:32)
[2017-12-14] MEDS: LEVOTHYROXINE 100 MCG TABLET PO (06:12)
[2017-12-14] MEDS: PANTOPRAZOLE 40 MG TABLET.DR. PO (06:12)
[2017-12-14] MEDS: PROPAFENONE 150 MG TABLET. PO ×2 (06:12→16:02)
[2017-12-14 08:20] LABS: POTASSIUM UR >100.0 mmol/L (Not Estab.)
[2017-12-14] MEDS: POLYVINYL ALCOHOL 1.4% OPHTH SOLUTION 15ML BOTTLE. OU (09:01)
[2017-12-14] MEDS: HYDROXYCHLOROQUINE 200 MG TABLET PO (09:04)
[2017-12-14] MEDS: OMEGA-3 FATTY ACIDS/FISH OIL 1,000 MG CAPSULE. PO (09:04)
[2017-12-14] MEDS: FERROUS SULFATE 325 MG TABLET. PO (09:05)
[2017-12-14] MEDS: PARoxetine 20 MG TABLET PO (09:05)
[2017-12-14] MEDS: CALCIUM CARB/VIT D3 500/200 TABLET. PO (09:05)
[2017-12-14] MEDS: ALLOPURINOL 100 MG TABLET. PO (09:05)
[2017-12-14 12:08] LABS: POTASSIUM 3.6 mmol/L (3.5-5.1)
[2017-12-14] MEDS: traMADol 50 MG TABLET PO (12:28)
[2017-12-14] MEDS: WARFARIN 3 MG TABLET. PO (16:02)
[2017-12-14] MEDS: FUROSEMIDE 80 MG TABLET. PO (16:02)
[2017-12-18] MEDS ORDERED: METHOTREXATE SODIUM 2.5 MG TABLET PO (09:00)
== END 2017-12-14 16:20 | disposition home health service (06) | DRG 682 ==
LOC: ER 13:50 → ED HOLD 16:21 → 2 SOUTH 19:48
DX: N17.0 Acute kidney failure with tubular necrosis (principal); I50.33 Acute on chronic diastolic (congestive) heart failure; E87.5 Hyperkalemia; E11.22 Type 2 diabetes mellitus with diabetic chronic kidney disease; I13.0 Hypertensive heart and chronic kidney disease with heart failure and stage 1 through stage 4 chronic kidney disease, or unspecified chronic kidney disease; I27.20 Pulmonary hypertension, unspecified; D64.9 Anemia, unspecified; E03.9 Hypothyroidism, unspecified; E78.5 Hyperlipidemia, unspecified; F32.9 Major depressive disorder, single episode, unspecified; F41.9 Anxiety disorder, unspecified; Z86.73 Personal history of transient ischemic attack (TIA), and cerebral infarction without residual deficits; I48.91 Unspecified atrial fibrillation; K21.9 Gastro-esophageal reflux disease without esophagitis; K59.00 Constipation, unspecified; M06.9 Rheumatoid arthritis, unspecified; Z96.651 Presence of right artificial knee joint; M10.9 Gout, unspecified; M19.90 Unspecified osteoarthritis, unspecified site; N18.9 Chronic kidney disease, unspecified; R79.1 Abnormal coagulation profile; Z79.01 Long term (current) use of anticoagulants; Z85.118 Personal history of other malignant neoplasm of bronchus and lung; Z95.0 Presence of cardiac pacemaker; Z90.49 Acquired absence of other specified parts of digestive tract; Z88.8 Allergy status to other drugs, medicaments and biological substances
CPT/HCPCS: 36415; 74176; 80048; 80053; 81001; 82310; 82533; 82550; 82553; 82728; 83540; 83550; 83615; 83690; 83735; 84132; 84133; 84300; 84439; 84443; 84484; 84550; 85007; 85025; 85045; 85610; 93005; 96365; 96374; 96375; 97162-GP; 97165-GO; 99291; 99291-25; J1815; J1940; J7030; J7042

== ENCOUNTER → 2017-12-26 | Outpatient (CLI) | payer MEDICARE | END | disposition home or self-care (01) | LOC: PETSC 09:03 | DX: C79.31 Secondary malignant neoplasm of brain (principal); J90 Pleural effusion, not elsewhere classified; Z85.118 Personal history of other malignant neoplasm of bronchus and lung | CPT/HCPCS: 78815; A9552 ==